=== PATIENT | female | born 1945 | race Caucasian/White ===

== ENCOUNTER → 2018-04-10 14:23 | Outpatient (CLI) | payer MEDICARE, SELFPAY ==
--- NOTE | 2018-04-10 14:24 | DI.RAD.S_ITS ---
PROCEDURE: XR CHEST 2V INDICATIONS: cough TECHNIQUE: 2 views of the chest were acquired. COMPARISON: [facility], CHEST 2 VIEW, 02/18/2012, 15:49. [facility], CHEST 2 VIEW, 11/01/2010, 11:49. [facility], CHEST 1 VIEW, 10/28/2016, 13:07. [facility], CHEST 1 VIEW, 07/26/2016, 12:54. [facility], CHEST 1 VIEW, 07/13/2017, 1:42. FINDINGS: Surgical changes and devices: 2 electronic devices are present, one on each side. Lungs and pleura: There is a small right pleural effusion with right basilar consolidation or atelectasis. No pneumothorax. Mediastinum: Mediastinal contours are normal. Heart size is normal. Bones and chest wall: No suspicious bony abnormalities. Soft tissues appear unremarkable. IMPRESSION: 1. Small right pleural effusion and right basilar consolidation or atelectasis, not significantly changes from the last exam dated 07/13/2017. Dictated by: Chelsea Brice M.D. on 04/10/2018 at 15:20 Approved by: Chelsea Brice M.D. on 04/10/2018 at 15:24
== END ==
PROVIDERS: PCP Internal Medicine; Visit Provider Physician Assistant
DX: J90 Pleural effusion, not elsewhere classified (principal); R05 Cough
CPT/HCPCS: 71046

== ENCOUNTER 2018-04-11 19:30 | Emergency (ER) | payer MEDICARE, SELFPAY ==
--- NOTE | 2018-04-11 19:40 | ED.ALLEREA ---
HPI - Allergic Reaction General Chief complaint: Allergic Reaction Stated complaint: ALLERGIC REACTION Time Seen by Provider: 04/11/18 19:38 Source: patient and family () Mode of arrival: wheelchair Limitations: other (Parkinson's disease) History of Present Illness HPI narrative: This is a 73-year-old female who is brought in by for concern for allergic reaction. Patient was just started on Levaquin yesterday, she had her 2nd dose today. She has been treated for pneumonia. She has known Parkinson's disease. She has not had any fevers today, she has had some cough but no difficulty breathing. She is not having any chest pain. No nausea or vomiting, no diarrhea. Maybe some mild constipation per . The patient has new rash that he noted on the underside of her breast and abdomen. I states he did noticing yesterday. He does majority of area being and so does look at her skin regularly. She has known allergy to penicillin but none to the Levaquin. Patient has been complaining of it is itchy and he noticed it because she was scratching the area. Related Data Home Medications Medication Instructions Recorded Confirmed donepezil [Aricept] 10 mg PO QDAY #0 05/05/12 04/10/18 aspirin 81 mg tablet,delayed 81 mg PO DAILY 01/14/18 04/10/18 release metoprolol succinate ER 25 mg 25 mg PO DAILY 01/14/18 04/10/18 tablet,extended release 24 hr trihexyphenidyl 2 mg tablet 2 mg PO DAILY tab 01/14/18 04/10/18 Previous Rx's Medication Instructions Recorded albuterol sulfate [Ventolin HFA] 1 - 2 puff INH Q4HP PRN #1 ea 07/11/16 carbidopa-levodopa 2 tab PO 0900,1200,1500 #180 tab 07/29/16 fluticasone-salmeterol [Advair 1 puff INH BID #60 dose 09/15/17 Diskus] Disabled Parking #1 [id number] 01/08/18 oxycodone-acetaminophen 5 mg-325 1 tab PO Q4HP PRN #90 tab 03/02/18 mg tablet levofloxacin 750 mg tablet 750 mg PO DAILY 10 Days #10 tab 04/10/18 doxycycline hyclate 100 mg PO BID #20 cap 04/11/18 prednisone 20 mg PO BID 3 Days #6 tab 04/11/18 Allergies Allergy/AdvReac Type Severity Reaction Status Date / Time fentanyl Allergy Unknown Verified 04/11/18 19:43 hydromorphone Allergy Unknown Verified 04/11/18 19:43 Penicillins Allergy Unknown Verified 04/11/18 19:43 sodium chloride Allergy Unknown Verified 04/11/18 19:43 Review of Systems Review of Systems All systems reviewed & are unremarkable except as noted in HPI and below Constitutional Denies chills and Denies fever(s) ENT Ears, Nose, Mouth, and Throat: Denies dysphagia, Denies nasal congestion, Denies sore throat, Denies throat swelling and Denies tongue swelling Cardiovascular Denies chest pain and Denies dyspnea Respiratory Reports chest congestion, Reports cough, Reports excessive phlegm production and Denies dyspnea Gastrointestinal Gastrointestinal: Reports constipation (mild), Denies dysphagia, Denies diarrhea, Denies nausea and Denies vomiting Integumentary/Breasts Reports rash (itching) Neurologic Reports abnormal movements (Parkinson's disease, no new change) Allergic/Immunologic Denies throat swelling and Denies tongue swelling [facility] Medical History Dysphagia, neurologic (Chronic) Parkinson's disease (Chronic 01/18/11) Mild intermittent asthma without complication (Chronic 01/18/11) Osteoporosis (Chronic 01/18/11) Surgical History History of surgery (Resolved) Status post hysterectomy with oophorectomy Social History Smoking Status: Never smoker Exam Narrative Exam Narrative: GEN: well nourished, well appearing female, alert and oriented x 3, patient appears to be in mild distress. HEENT: Atraumatic, pupils are equal round reactive to light, extraocular movements are intact, nares are clear, TMs are clear with no fluid, there is no conjunctival pallor. Throat is clear without any exudates, erythema, tonsillar enlargement or uvular deviation, no facial swelling or swelling of oropharynx. HEART: Regular rate and rhythm without murmur, clicks, rubs. LUNGS:Lungs clear to auscultation, no wheezes, rales, crackles, chest moves symmetrically. ABD:bowel sounds normal, soft, non-tender, no guarding, rebound, rigidity, no masses noted, no hepatosplenomegaly MSCL: Non-tender, no muscle atrophy, patient has movement of upper extremities consistent with Parkinon's disease NEURO:CN 2-12 intact, sensation normal SKIN: erythema under bilateral breast, slight swelling in erythematous circles, no vesicles. Patient also has some hyperpigmentation adjacent on abdomen. Initial Vital Signs Initial Vital Signs: Vital Signs Temperature 97.4 F L 04/11/18 19:43 Pulse Rate 82 04/11/18 19:43 Respiratory Rate 20 04/11/18 19:43 Blood Pressure 115/64 04/11/18 19:43 Pulse Oximetry 95 04/11/18 19:43 Course Orders Ordered: ED Orders 04/11/18 19:45 Basic Metabolic Panel Stat Complete Blood Count AUTO DIFF Stat Lactate (Lactic Acid) Stat Discontinued Medications Diphenhydramine HCl (Benadryl) 50 mg IV NOW ONE Stop: 04/11/18 19:39 Last Admin: 04/11/18 19:56 Dose: 50 mg Doxycycline Hyclate (Vibramycin) 100 mg PO NOW ONE Stop: 04/11/18 20:45 Last Admin: 04/11/18 21:00 Dose: 100 mg Sodium Chloride (Normal Saline 0.9%) 1,000 mls @ 1,000 mls/hr IV BOLUS ONE Stop: 04/11/18 20:37 Last Infusion: 04/11/18 21:15 Dose: 0 mls/hr Admin: 04/11/18 19:56 Dose: 1,000 mls/hr Methylprednisolone (Solu-Medrol 125 Mg Vial) 125 mg IV NOW ONE Stop: 04/11/18 19:39 Last Admin: 04/11/18 19:56 Dose: 125 mg Vital Signs - 8 hr 04/11/18 19:43 04/11/18 21:00 04/11/18 21:15 Temperature 97.4 F L Pulse Rate 82 79 65 Respiratory Rate 20 Blood Pressure 115/64 107/63 Blood Pressure [Left Arm] 120/58 L Pulse Oximetry 95 95 95 MDM - Allergic Reaction Lab Data Attestation: I reviewed the patient's lab results. Result diagrams: 04/11/18 19:45 04/11/18 19:45 Lab Results 04/11/18 04/11/18 04/11/18 Range/Units 19:45 19:45 19:45 WBC 7.5 (4.5-11.0) X10^3/uL RBC 3.92 L (4.0-5.2) X10^6/uL Hgb 12.2 (12.0-16.0) g/dL Hct 36.0 (36-46) % MCV 91.8 (80-100) fL MCH 31.1 (26-34) PG MCHC 33.8 (30-36) % RDW 12.9 (11.6-14.8) % Plt Count 212 (150-400) X10^3/uL Neut % (Auto) 57.6 (50-75) % Lymph % (Auto) 30.8 (25-40) % [place] % (Auto) 7.5 (3-14) % Eos % (Auto) 3.0 (2-4) % Baso % (Auto) 1.1 (0-2) % Neut # (Auto) 4300 (6757-9655) /uL Sodium 142 (137-145) mmol/L Potassium 4.4 (3.4-5.1) mmol/L Chloride 104 (98-107) mmol/L Carbon Dioxide 27 (22-32) mmol/L BUN 17 (7-17) mg/dL Creatinine 0.70 (0.52-1.04) mg/dL Estimated GFR > 60.0 (>60) mL/min BUN/Creatinine Ratio 24.3 H (6-22) Glucose 106 (80-110) mg/dL Lactate 1.7 (0.7-2.1) mmol/L Calcium 8.8 (8.4-10.2) mg/dL Imaging Data Chest x-ray: Radiologist's impression: [address] [address] XRay Report Signed Patient: Elise Villalta [facility]#: [id number] : 6Acct:[id number] Age/Sex: 73 / FDate of Service: 04/10/18 Loc: RAD Accession Number: [id number] Procedure: XR chest 2V Ordering Provider: Nadiya Lozano P.A-C PROCEDURE: XR CHEST 2V INDICATIONS: cough TECHNIQUE: 2 views of the chest were acquired. COMPARISON: [facility], CHEST 2 VIEW, 02/18/2012, 15:49. [facility], CHEST 2 VIEW, 11/01/2010, 11:49. [facility], CHEST 1 VIEW, 10/28/2016, 13:07. [facility], CHEST 1 VIEW, 07/26/2016, 12:54. [facility], CHEST 1 VIEW, 07/13/2017, 1:42. FINDINGS: Surgical changes and devices: 2 electronic devices are present, one on each side. Lungs and pleura: There is a small right pleural effusion with right basilar consolidation or atelectasis. No pneumothorax. Mediastinum: Mediastinal contours are normal. Heart size is normal. Bones and chest wall: No suspicious bony abnormalities. Soft tissues appear unremarkable. IMPRESSION: 1. Small right pleural effusion and right basilar consolidation or atelectasis, not significantly changes from the last exam dated 07/13/2017. Dictated by: Chelsea Brice M.D. on 04/10/2018 at 15:20 Approved by: Chelsea Brice M.D. on 04/10/2018 at 15:24 MDM Narrative Medical decision making narrative: Initially suspected fungal infection but patient rash just started and he patient had also started levaquin at same time. Treated with steroid and benadryl. Rash 99% resolved in department so may be reaction to medication. Will change abx, plan for prednisone x 3 days, benadryl po prn and follow up with Dr. Mcmanus. We did discuss this is a rather unusual presentation for a allergic reaction so patient continues to have symptoms may actually be more likely a fungal infection. Discharge Plan Departure Patient Disposition: Home Clinical Impression: Allergic reaction Discharge Date/Time: 04/11/18 21:16 Interventions: ED Discharge Assessment Last Done: 04/11/18 21:15 Instructions: DI for Adverse Drug Reaction -- Allergic Activity Restrictions/Additional Instructions: Follow up with Dr. Mcmanus at your scheduled appointment. Discuss with Dr. Mcmanus Stop Levaquin. Start Doxycycline in the morning. Take prednisone until gone. You may take benadryl 1-2 tablets every 6-8 hours for itching/symptoms. Return to ER for facial swelling, lip swelling, throat tightness, difficulty breathing, passing out, persistent vomiting, or other new or concerning symptoms. Prescriptions: New doxycycline hyclate 100 mg capsule 100 mg PO BID Qty: 20 RF: 0 prednisone 20 mg tablet 20 mg PO BID 3 Days Qty: 6 RF: 0 No Action levofloxacin [Levaquin] 750 mg tablet 750 mg PO DAILY 10 Days Qty: 10 RF: 0 metoprolol succinate 25 mg tablet extended release 24 hr 25 mg PO DAILY RF: 0 aspirin [Adult Aspirin Regimen] 81 mg tablet,delayed release (DR/EC) 81 mg PO DAILY RF: 0 trihexyphenidyl 2 mg tablet 2 mg PO DAILY RF: 0 donepezil [Aricept] 10 MG tablet 10 mg PO QDAY Qty: 0 RF: 0 albuterol sulfate [Ventolin HFA] 90 MCG/PUFF HFA aerosol inhaler 1 - 2 puff INH Q4HP PRNQty: 1 RF: 11 carbidopa-levodopa 10 MG/100 MG tablet 2 tab PO 0900,1200,1500 Qty: 180 RF: 11 fluticasone-salmeterol [Advair Diskus] 250 MCG/50 MCG blister with device 1 puff INH BID Qty: 60 RF: 3 Disabled Parking Qty: 1 RF: 0 oxycodone-acetaminophen [Percocet] 5-325 mg tablet 1 tab PO Q4HP PRN (Reason: pain) Qty: 90 RF: 0 Referrals: Hudson Mcmanus MD [Primary Care Provider] -
[2018-04-11 19:43] VITALS: BP 115/64; PULSE 82; RESP 20; TEMP 36.3; O2SAT 95
[2018-04-11 19:56] LABS: Add Manual Diff / Slide Review NO; Basophils Percent Auto 1.1 % (0-2); Hemoglobin 12.2 g/dL (12.0-16.0); Lymphocytes Percent Auto 30.8 % (25-40); Mean Corpuscular HGB Conc 33.8 % (30-36); Mean Corpuscular Hemoglobin 31.1 PG (26-34); Mean Corpuscular Volume 91.8 fL (80-100); Monocytes Percent Auto 7.5 % (3-14); Neutrophils Absolute Auto 4300 /uL (3000-5900); Neutrophils Percent Auto 57.6 % (50-75); Platelet Count 212 X10^3/uL (150-400); Red Blood Cell Count 3.92 X10^6/uL (4.0-5.2); Red Cell Distribution Width 12.9 % (11.6-14.8); White Blood Cell Count 7.5 X10^3/uL (4.5-11.0)
[2018-04-11] MEDS: diphenhydrAMINE 50 MG/ML VIAL IV (19:56)
[2018-04-11] MEDS: SODIUM CHLORIDE 0.9% 1,000 ML 1000 ML IV (19:56)
[2018-04-11] MEDS: methylPREDNISolone 125 MG/2 ML VIAL IV (19:56)
[2018-04-11 20:06] LABS: Lactate (Lactic Acid) 1.7 mmol/L (0.7-2.1)
[2018-04-11 20:07] LABS: BUN Creatinine Ratio 24.3 (6-22); Blood Urea Nitrogen 17 mg/dL (7-17); Calcium 8.8 mg/dL (8.4-10.2); Carbon Dioxide 27 mmol/L (22-32); Chloride 104 mmol/L (98-107); Estimated Glomerular Filt Rate > 60.0 mL/min (>60); Glucose 106 mg/dL (80-110); HEMOLYSIS 31 (0-50); Potassium 4.4 mmol/L (3.4-5.1); Sodium 142 mmol/L (137-145)
[2018-04-11 21:00] VITALS: BP 120/58; PULSE 79; O2SAT 95
[2018-04-11] MEDS: DOXYCYCLINE HYCLATE 100 MG TABLET PO (21:00)
[2018-04-11 21:15] VITALS: BP 107/63; PULSE 65; O2SAT 95
== END 2018-04-11 21:16 | disposition home or self-care (01) ==
PROVIDERS: Emergency Provider Emergency Medicine; Family Provider Internal Medicine; PCP Internal Medicine
DX: T78.40XA Allergy, unspecified, initial encounter (principal)
CPT/HCPCS: 36591; 80048; 83605; 85025; 96361; 96374; 96375; 99283; 99284; J1200; J2930

== ENCOUNTER 2018-05-03 19:46 | Emergency (ER) | payer MEDICARE, SELFPAY ==
[2018-05-03] VITALS (7 sets, daily range): BP systolic 121–164; BP diastolic 55–70; PULSE 73–100; RESP 16–26; TEMP 37.1–38.6; O2SAT 88–97; BMI 21.9
--- NOTE | 2018-05-03 20:11 | DI.RAD.S_ITS ---
PROCEDURE: XR CHEST 1V INDICATIONS: suspected aspiration TECHNIQUE: One view of the chest was acquired. COMPARISON: [facility], CR, XR CHEST 2V, 04/10/2018, 14:27. FINDINGS: Surgical changes and devices: Bilateral neurostimulator devices are demonstrated projecting over the hemithoraces. Lungs and pleura: There is a small right pleural effusion with increased right basilar opacities consistent with consolidation, aspiration, or atelectasis. Mediastinum: Mediastinal contours appear unchanged. Heart size is enlarged. Bones and chest wall: No suspicious bony lesions. Overlying soft tissues appear unremarkable. IMPRESSION: 1. Small right pleural effusion with increased right basilar opacities consistent with consolidation, aspiration, or atelectasis. Dictated by: Tomás Babin M.D. on 05/03/2018 at 20:52 Approved by: Tomás Babin M.D. on 05/03/2018 at 20:54
[2018-05-03] MEDS: SODIUM CHLORIDE 0.9% 1,905.09 ML 635.03 ML IV (20:44)
--- NOTE | 2018-05-03 20:44 | ED.SOB ---
HPI - SOB/Dyspnea General Chief Complaint: Shortness of Breath/Dyspnea Stated Complaint: pneumonia Time Seen by Provider: 05/03/18 20:18 Source: patient and family Mode of arrival: ambulatory Limitations: physical limitation ( Parkinson's disease prevents the patient from speaking freely. provides most of the history.) History of Present Illness Patient has a history of Parkinson's disease and was treated about 1 month ago for pneumonia. Patient's states that she has had some gurgling with her breathing since then, and he just thought that it was the aftermath of her pneumonia. However, the patient seems to been getting worse over the last few days, and today, was found to be running a fever. Patient has had a cough for the last few days, but the cough disappeared today. Patient's states he is concerned about this. Patient has not had any other symptoms of infection, such as vomiting or dysuria. She has not had a sore throat. No sick contacts. Patient was not hospitalized in her last bout of pneumonia. Related Data Home Medications Medication Instructions Recorded Confirmed donepezil [Aricept] 10 mg PO QDAY #0 05/05/12 04/21/18 aspirin 81 mg tablet,delayed 81 mg PO DAILY 01/14/18 04/21/18 release metoprolol succinate ER 25 mg 25 mg PO DAILY 01/14/18 04/21/18 tablet,extended release 24 hr trihexyphenidyl 2 mg tablet 2 mg PO DAILY tab 01/14/18 04/21/18 Previous Rx's Medication Instructions Recorded albuterol sulfate [Ventolin HFA] 1 - 2 puff INH Q4HP PRN #1 ea 07/11/16 carbidopa-levodopa 2 tab PO 0900,1200,1500 #180 tab 07/29/16 fluticasone-salmeterol [Advair 1 puff INH BID #60 dose 09/15/17 Diskus] Disabled Parking #1 [id number] 01/08/18 oxycodone-acetaminophen 5 mg-325 1 tab PO Q4HP PRN #90 tab 03/02/18 mg tablet doxycycline hyclate 100 mg PO BID #20 cap 04/11/18 azithromycin [Zithromax Z-Matheus] See Label Instructions .ROUTE 05/04/18 .COMPLEX #6 tab Allergies Allergy/AdvReac Type Severity Reaction Status Date / Time levofloxacin Allergy Severe Hives, Verified 04/21/18 11:11 Water Blisters, Small Fever fentanyl Allergy Unknown Verified 04/21/18 11:11 hydromorphone Allergy Unknown Verified 04/21/18 11:11 Penicillins Allergy Unknown Verified 04/21/18 11:11 sodium chloride Allergy Unknown Verified 04/21/18 11:11 Review of Systems Review of Systems All systems reviewed & are unremarkable except as noted in HPI and below Constitutional Denies chills, Denies fever(s), Denies lethargy and Denies weakness Eyes Denies change in vision, Denies eye discharge, Denies irritation and Denies loss of vision ENT Ears, Nose, Mouth, and Throat: Denies change in voice, Denies neck pain and Denies sore throat Cardiovascular Denies chest pain, Denies irregular heart rhythm, Denies lightheadedness, Denies palpitations, Denies dyspnea, Denies dyspnea on exertion and Denies orthopnea Respiratory Denies cough, Denies dyspnea, Denies dyspnea on exertion and Denies wheezing Gastrointestinal Gastrointestinal: Denies abdominal pain, Denies change in bowel habits, Denies diarrhea, Denies nausea and Denies vomiting Genitourinary Denies hematuria, Denies flank pain, Denies urinary incontinence and Denies urinary urgency Musculoskeletal Denies neck pain Integumentary/Breasts Denies pruritus, Denies erythema, Denies rash and Denies wounds Neurologic Denies confusion, Denies loss of vision and Denies weakness Psychiatric Denies anxiety, Denies confusion, Denies depression, Denies homicidal ideation and Denies suicidal ideation Endocrine Denies palpitations Hematologic/Lymphatic Denies easy bruising Allergic/Immunologic Denies wheezing [facility] Medical History Dysphagia, neurologic (Chronic) Parkinson's disease (Chronic 01/18/11) Mild intermittent asthma without complication (Chronic 01/18/11) Osteoporosis (Chronic 01/18/11) Surgical History History of surgery (Resolved) Status post hysterectomy with oophorectomy Social History Smoking Status: Never smoker Exam Initial Vital Signs Initial Vital Signs: Vital Signs Temperature 101.5 F H 05/03/18 19:58 Pulse Rate 100 H 05/03/18 19:58 Respiratory Rate 26 H 05/03/18 19:58 Blood Pressure 121/70 05/03/18 19:58 Pulse Oximetry 88 L 05/03/18 19:58 Const General: cooperative and well developed Nutritional Appearance: well nourished Orientation: alert, awake, oriented x3 and not confused [facility] Head: normocephalic and atraumatic Ears: external ears normal Nose: external nose normal and No nasal discharge Face and sinus: face symmetric and No dry mucous membranes Mouth: oral mucosae normal and moist mucous membranes Teeth and gingiva: dentition normal Eyes General: appearance normal, both eyes and all related structures Eyelids: eyelids normal Conjunctivae: conjunctivae normal Sclera: sclerae normal Pupils: PERRL EOM: EOM intact bilaterally Neck Neck: normal visual inspection, trachea midline, No lymphadenopathy, No midline deformity and No JVD Lymphatic: No lymphedema Chest Chest: normal inspection of the chest Resp Effort & Inspection: normal respiratory effort, able to speak in complete sentences, no respiratory distress and no use of accessory muscles Auscultation: clear to auscultation bilaterally, no rales, no rhonchi and no wheezes Cardio Rate: regular rate Rhythm: regular rhythm Heart Sounds: no click, no gallops, no murmurs and no rubs Pulses: normal peripheral pulses GI Inspection: non-distended Palpation: soft, no hepatosplenomegaly, No guarding, No pulsatile mass and No tender Back/Spine/Pelvis Back: No CVA tenderness Cervical Spine: cervical ROM normal and No pain with cervical ROM Thoracic/Lumbar Spine: thoracic and lumbar spine normal to inspection Skin General: no rashes or lesions noted, No jaundice and No petechiae Neuro General: alert Other: Patient has minimal facial movement, and is not able to articulate clearly, secondary to decreased movement of her oral, facial, and lingual muscles. Patient has decreased strength throughout her entire body, and requires help sitting up. She does not move her extremities much. Extrem General: full ROM, no clubbing, cyanosis or edema, no pedal edema and no calf tenderness Psych Appearance: well kempt Mental Status: mental status grossly normal Attitude: cooperative Thought Content: normal and suicidality Judgment: judgment good Course Course Narrative: Patient was worked up with chest x-ray, which showed a right pleural effusion with potentially some consolidation. Remainder of workup was entirely negative for a source of fever. Patient's lactic acid level was normal, as was procalcitonin. Given the patient's history of frequent pneumonia, her x-ray findings, and her fever, I felt she should be treated with antibiotics presumptively for pneumonia. She was given IV Rocephin as well as IV Zithromax. Patient was found to be feeling much, much better, and I did come and talk to her and her about disposition. Patient and both felt comfortable with the idea of going home, and were desirous of this. We have discussed the usual indications for return. Patient has already been worked up by speech pathologist and had swallow studies, but has been advised by her primary care physician that she may need to go back and be re-evaluated, due to the repeated bouts of pneumonia and suspected aspiration. states he will follow up on this with the patient's primary care physician. Orders Ordered: ED Orders 05/03/18 20:11 XR chest 1V Stat 05/03/18 20:20 Complete Blood Count AUTO DIFF Stat Comprehensive Metabolic Panel Stat Lactate (Lactic Acid) Stat Lipase Stat Partial Thromboplastin Time Stat Procalcitonin Stat Prothrombin Time INR Stat 05/03/18 20:52 Blood Culture Stat 05/03/18 20:55 Influenza A and B by PCR Rapid Stat Discontinued Medications Sodium Chloride (Normal Saline 0.9%) 1,905.09 mls @ 635.03 mls/hr 30 ml/kg infuse over 3 hr (1905.09 ml) IV NOW ONE Stop: 05/03/18 23:36 Last Infusion: 05/04/18 00:57 Dose: 0 mls/hr Admin: 05/03/18 20:44 Dose: 635.03 mls/hr Azithromycin 500 mg/ Dextrose 250 mls @ 250 mls/hr IV NOW ONE Stop: 05/03/18 22:01 Last Infusion: 05/04/18 00:11 Dose: 0 mls/hr Admin: 05/03/18 23:08 Dose: 250 mls/hr Ceftriaxone Sodium 2,000 mg/ (Dextrose) 50 mls @ 100 mls/hr IV NOW ONE Stop: 05/03/18 22:01 Last Infusion: 05/03/18 23:07 Dose: 0 mls/hr Admin: 05/03/18 22:28 Dose: 100 mls/hr Vital Signs - 8 hr 05/03/18 19:58 05/03/18 20:34 05/03/18 21:30 Temperature 101.5 F H Pulse Rate 100 H 89 77 Respiratory Rate 26 H 18 17 Blood Pressure 121/70 Blood Pressure [Right Arm] 164/67 H 163/67 H Pulse Oximetry 88 L 93 97 05/03/18 21:53 05/03/18 22:00 05/03/18 23:00 Temperature 99.3 F Pulse Rate 78 73 Respiratory Rate 16 17 Blood Pressure Blood Pressure [Right Arm] 148/60 H 143/55 H Pulse Oximetry 96 96 05/03/18 23:12 05/04/18 00:58 Temperature 98.7 F 98.6 F Pulse Rate 75 Respiratory Rate 17 Blood Pressure 142/61 H Blood Pressure [Right Arm] Pulse Oximetry 95 MDM - SOB/Dyspnea Medical Records Attestation: I reviewed the patient's medical records. Lab Data Attestation: I reviewed the patient's lab results. Result diagrams: 05/03/18 20:20 05/03/18 20:20 Lab Results 05/03/18 05/03/18 05/03/18 Range/Units 20:20 20:20 20:20 WBC 7.7 (4.5-11.0) X10^3/uL RBC 4.12 (4.0-5.2) X10^6/uL Hgb 12.7 (12.0-16.0) g/dL Hct 37.5 (36-46) % MCV 91.0 (80-100) fL MCH 30.7 (26-34) PG MCHC 33.7 (30-36) % RDW 13.5 (11.6-14.8) % Plt Count 189 (150-400) X10^3/uL Neut % (Auto) 75.8 H (50-75) % Lymph % (Auto) 15.4 L (25-40) % Pine % (Auto) 5.9 (3-14) % Eos % (Auto) 2.4 (2-4) % Baso % (Auto) 0.5 (0-2) % Neut # (Auto) 5800 (1466-9530) /uL PT 11.6 (10.1-12.7) SECONDS INR 1.0 (0.9-1.3) APTT 31 (26.4-36.2) SECONDS Sodium (137-145) mmol/L Potassium (3.4-5.1) mmol/L Chloride (98-107) mmol/L Carbon Dioxide (22-32) mmol/L BUN (7-17) mg/dL Creatinine (0.52-1.04) mg/dL Estimated GFR (>60) mL/min BUN/Creatinine Ratio (6-22) Glucose (80-110) mg/dL Lactate (0.7-2.1) mmol/L Calcium (8.4-10.2) mg/dL Total Bilirubin (0.2-1.3) mg/dL AST (14-36) IU/L ALT (9-52) IU/L Alkaline Phosphatase (38-126) U/L Total Protein (6.3-8.2) g/dL Albumin (3.5-5.0) g/dL Globulin (1.7-4.1) g/dL Albumin/Globulin Ratio (1.0-2.8) Lipase (23-300) U/L Procalcitonin < 0.05 (<0.5) ng/mL Influenza A & B (PCR) (Negative) 05/03/18 05/03/18 05/03/18 Range/Units 20:20 20:20 20:55 WBC (4.5-11.0) X10^3/uL RBC (4.0-5.2) X10^6/uL Hgb (12.0-16.0) g/dL Hct (36-46) % MCV (80-100) fL MCH (26-34) PG MCHC (30-36) % RDW (11.6-14.8) % Plt Count (150-400) X10^3/uL Neut % (Auto) (50-75) % Lymph % (Auto) (25-40) % Pine % (Auto) (3-14) % Eos % (Auto) (2-4) % Baso % (Auto) (0-2) % Neut # (Auto) (6724-4243) /uL PT (10.1-12.7) SECONDS INR (0.9-1.3) APTT (26.4-36.2) SECONDS Sodium 138 (137-145) mmol/L Potassium 4.4 (3.4-5.1) mmol/L Chloride 104 (98-107) mmol/L Carbon Dioxide 23 (22-32) mmol/L BUN 17 (7-17) mg/dL Creatinine 0.70 (0.52-1.04) mg/dL Estimated GFR > 60.0 (>60) mL/min BUN/Creatinine Ratio 24.3 H (6-22) Glucose 110 (80-110) mg/dL Lactate 0.8 (0.7-2.1) mmol/L Calcium 9.1 (8.4-10.2) mg/dL Total Bilirubin 0.4 (0.2-1.3) mg/dL AST 59 H (14-36) IU/L ALT 15 (9-52) IU/L Alkaline Phosphatase 77 (38-126) U/L Total Protein 7.4 (6.3-8.2) g/dL Albumin 4.3 (3.5-5.0) g/dL Globulin 3.1 (1.7-4.1) g/dL Albumin/Globulin Ratio 1.4 (1.0-2.8) Lipase 116 (23-300) U/L Procalcitonin (<0.5) ng/mL Influenza A & B (PCR) Negative (Negative) Urine Dip Bedside Urine Glucose Negative Bedside Urine Bilirubin - Negative Bedside Urine Ketone +/- 5 Urine Specific [place] 1.015 Bedside Urine Occult Blood +/- Bedside Urine pH 7.5 Bedside Urine Protein - Negative Bedside Urine Urobilinogen - Negative Bedside Urine Nitrite - Negative Bedside Urine Leukocytes - Negative Esterase Imaging Data Chest x-ray: Attestation: I personally reviewed and interpreted this imaging study as follows: Radiologist's impression: PROCEDURE: XR CHEST 1V INDICATIONS: suspected aspiration TECHNIQUE: One view of the chest was acquired. COMPARISON: [facility], , XR CHEST 2V, 04/10/2018, 14:27. FINDINGS: Surgical changes and devices: Bilateral neurostimulator devices are demonstrated projecting over the hemithoraces. Lungs and pleura: There is a small right pleural effusion with increased right basilar opacities consistent with consolidation, aspiration, or atelectasis. Mediastinum: Mediastinal contours appear unchanged. Heart size is enlarged. Bones and chest wall: No suspicious bony lesions. Overlying soft tissues appear unremarkable. IMPRESSION: 1. Small right pleural effusion with increased right basilar opacities consistent with consolidation, aspiration, or atelectasis. Dictated by: Tomás Babin M.D. on 05/03/2018 at 20:52 Approved by: Tomás Babin M.D. on 05/03/2018 at 20:54 Discharge Plan Departure Patient Disposition: Home Clinical Impression: Community acquired pneumonia Discharge Date/Time: 05/04/18 00:59 Interventions: ED Discharge Assessment Last Done: 05/04/18 00:58 Instructions: DI for Pneumonia -- Adult Activity Restrictions/Additional Instructions: Your labs look good. Your chest x-ray shows a small fluid collection in the bottom of your right lung, which may be infected. You have been restarted on antibiotics for this. It is important that you follow up with your doctor to discuss potentially having a swallow study, and to also discuss ways to prevent aspirating stomach contents and alexander pneumonia in the future. Prescriptions: New azithromycin [Zithromax Z-Matheus] 250 mg tablet See Label Instructions .ROUTE .COMPLEX Qty: 6 RF: 0 No Action metoprolol succinate 25 mg tablet extended release 24 hr 25 mg PO DAILY RF: 0 aspirin [Adult Aspirin Regimen] 81 mg tablet,delayed release (DR/EC) 81 mg PO DAILY RF: 0 trihexyphenidyl 2 mg tablet 2 mg PO DAILY RF: 0 donepezil [Aricept] 10 MG tablet 10 mg PO QDAY Qty: 0 RF: 0 albuterol sulfate [Ventolin HFA] 90 MCG/PUFF HFA aerosol inhaler 1 - 2 puff INH Q4HP PRNQty: 1 RF: 11 carbidopa-levodopa 10 MG/100 MG tablet 2 tab PO 0900,1200,1500 Qty: 180 RF: 11 fluticasone-salmeterol [Advair Diskus] 250 MCG/50 MCG blister with device 1 puff INH BID Qty: 60 RF: 3 Disabled Parking Qty: 1 RF: 0 oxycodone-acetaminophen [Percocet] 5-325 mg tablet 1 tab PO Q4HP PRN (Reason: pain) Qty: 90 RF: 0 doxycycline hyclate 100 mg capsule 100 mg PO BID Qty: 20 RF: 0
[2018-05-03 20:46] LABS: Add Manual Diff / Slide Review NO; Basophils Percent Auto 0.5 % (0-2); Eosinophils Percent Auto 2.4 % (2-4); Hematocrit 37.5 % (36-46); Hemoglobin 12.7 g/dL (12.0-16.0); Lymphocytes Percent Auto 15.4 % (25-40); Mean Corpuscular HGB Conc 33.7 % (30-36); Mean Corpuscular Hemoglobin 30.7 PG (26-34); Monocytes Percent Auto 5.9 % (3-14); Neutrophils Absolute Auto 5800 /uL (3000-5900); Neutrophils Percent Auto 75.8 % (50-75); Platelet Count 189 X10^3/uL (150-400); Red Blood Cell Count 4.12 X10^6/uL (4.0-5.2); Red Cell Distribution Width 13.5 % (11.6-14.8); White Blood Cell Count 7.7 X10^3/uL (4.5-11.0)
[2018-05-03 20:49] LABS: Prothrombin Time 11.6 SECONDS (10.1-12.7)
[2018-05-03 20:52] LABS: PTT Partial Thromboplastin Tim 31 SECONDS (26.4-36.2)
[2018-05-03 20:53] LABS: Lactate (Lactic Acid) 0.8 mmol/L (0.7-2.1)
[2018-05-03 21:11] LABS: Alanine Aminotransferase 15 IU/L (9-52); Albumin 4.3 g/dL (3.5-5.0); Albumin Globulin Ratio 1.4 (1.0-2.8); Alkaline Phosphatase 77 U/L (38-126); Aspartate Aminotransferase 59 IU/L (14-36); BUN Creatinine Ratio 24.3 (6-22); Bilirubin Total 0.4 mg/dL (0.2-1.3); Blood Urea Nitrogen 17 mg/dL (7-17); Calcium 9.1 mg/dL (8.4-10.2); Carbon Dioxide 23 mmol/L (22-32); Chloride 104 mmol/L (98-107); Estimated Glomerular Filt Rate > 60.0 mL/min (>60); Globulin 3.1 g/dL (1.7-4.1); Glucose 110 mg/dL (80-110); HEMOLYSIS 19 (0-50); Lipase 116 U/L (23-300); Potassium 4.4 mmol/L (3.4-5.1); Sodium 138 mmol/L (137-145); Total Protein 7.4 g/dL (6.3-8.2)
[2018-05-03 21:26] LABS: Procalcitonin < 0.05 ng/mL (<0.5)
[2018-05-03 21:28] LABS: Influenza A and B by PCR Rapid Negative (Negative)
[2018-05-03] MEDS: cefTRIAXone 2,000 MG in DEXTROSE 5 % IN WATER 50 ML 100 ML IV (22:28)
[2018-05-03] MEDS: AZITHROMYCIN 500 MG in DEXTROSE 5% IN WATER 250 ML IV (23:08)
[2018-05-04 00:58] VITALS: BP 142/61; PULSE 75; RESP 17; TEMP 37; O2SAT 95
== END 2018-05-04 00:59 | disposition home or self-care (01) ==
PROVIDERS: Emergency Provider Emergency Medicine; PCP Internal Medicine
DX: J18.9 Pneumonia, unspecified organism (principal)
CPT/HCPCS: 36591; 71045; 80053; 81003; 83605; 83690; 84145; 85025; 85610; 85730; 87040; 87400; 96361; 96365; 96367; 99284; 99285; J0696

== ENCOUNTER → 2019-06-11 13:12 | Outpatient (CLI) | payer MEDICARE, SELFPAY ==
--- NOTE | 2019-06-11 | DI.RAD.S_ITS ---
PROCEDURE: FL BARIUM SWALLOW W SPEECH INDICATIONS: Dysphagia, oropharyngeal phase TECHNIQUE: Examination was conducted in conjunction with speech pathology per standard protocol. In the lateral projection, filming was performed of the patient swallowing. AP projection filming may also be performed with patient swallowing. COMPARISON: [facility], , BARIUM SWALLOW WITH SPEECH, 07/26/2016, 15:02. FINDINGS: Function: The oral preparatory phase appears normal, with proper containment. The subsequent oral propulsive phase, pharyngeal phase, and esophageal phase of swallowing also appear normal with all proffered substances. There is laryngotracheal penetration without anthony laryngotracheal aspiration. There is vallecular and piriform sinus pooling which is only partially cleared with repeated swallows. Morphology: No cricopharyngeal bar is identified. No cervical esophageal webs. No Zenker's diverticulum. No strictures. IMPRESSION: 1. Laryngotracheal penetration without aspiration. 2. Vallecular and piriform sinus pooling. Pooled material is only partially cleared with repeated swallows. Dictated by: Eva Haynes MD, PhD on 06/11/2019 at 14:36 Approved by: Eva Haynes MD, PhD on 06/11/2019 at 14:38
--- NOTE | 2019-06-11 15:16 | ST.SWALLOW ---
Visit Care Team Role Provider Type Hudson Mcmanus MD Primary Care Provider Physician Specialty: Internal Medicine Address: [address] [place] [address], [address], [place], [address] Email: [email or web address] Marjorie Valdez MD Attending Provider Non-Staff Specialty: Medical Address: [address] [place] [address], [address] Email: Modified Barium Swallow Study FLATCAR WHACKER Modified Barium Swallow Study Start: 06/11/19 13:49 Freq: Status: Active Protocol: Document 06/11/19 13:49 TLC (Rec: 06/11/19 14:07 TLC [id number]) Modified Barium Swallow Study Total Time Visit Start Time 13:30 Visit Stop Time 13:50 Total Visit Minutes [address] Marjorie Valdez Reason for Referral Oropharyngeal Dysphagia Setting Setting Outpatient Care Patient Information Identification Type Name Patient History Elise has a history of oropharyngeal dysphagia and aspiration pneumonia secondary to Parkinson's disease. She is currently receiving outpatient speech therapy services with DAINA Charles at [facility]. Speech therapy sessions have focused on completing swallow exercises and education on diaphragmatic breathing and compensatory swallow strategies. A modified Barium Swallow Study was ordered for evaluation of swallow physiology and to guide plan of care. Elise previously had an MBS in 2017 which revealed moderate oropharyngeal dyspaghia characterized by reduced lingual seal allowing trace anterior spillage and significant pharyngeal residue worsening with larger bolus size, solid textures and fatigue. Subjective Observations Elise arrived on time accompanied by her who waited in the waiting room. She transferred from her wheelchair to the radiology chair with assistance from the independent trader. She was alert, oriented and cooperative. Patient Positioning Position View Lateral Imaging Lateral View Textures Administered Trials Presented Thin Liquid via Spoon,Thin Liquid via Cup,[place] Liquid via Spoon,Honey Liquid via Spoon,Dysphagia Blenderized Textures,Regular Textures Oral Phase Source: MBSIMP (TM) (C) Bolus Specific Scoring Grid Lip Closure Moderate Impairment Tongue Control During Bolus Hold No Impairment (WNL) Bolus Prep/Mastication No Impairment (WNL) Bolus Transport/Lingual Motion Moderate Impairment Oral Residue Mild Impairment Additional Oral Phase Observations Observed anterior loss of bolus during tsp presentation of thin liquids which escaped to mid-chin. No impairments in lip closure observed during any other trials. Elise was not wearing her upper partial, but mastication was within functional limits for 1/2 of a barium coated shortbread cookie. Bolus transport of pudding and cookie consistencies was repetitive/ disorganized. A collection of of residue was observed on the tongue which improved with second dry swallows. Initiation of pharyngeal swallow occurred at the level of the pyriforms. Pharyngeal Phase Source: MBSIMP (TM) (C) Bolus Specific Scoring Grid Soft Palate Elevation Mild Impairment Tongue Base Strength/Range of Motion Mild Impairment Laryngeal Elevation Mild Impairment Anterior Hyoid Movement Severe Impairment Epiglottic Range of Motion Moderate Impairment Vallecular Residue Yes Laryngeal Vestibular Closure Moderate Impairment Pharyngeal Stripping Wave Mild Impairment Upper Esophageal Sphincter Opening Mild Impairment Residue in the Pyriform Sinuses Yes Additional Pharyngeal Phase Observations Observed bolus escape to nasopharynx during consecutive cup sips. Laryngeal elevation was incomplete with only partial superior movement of the thyroid cartilage and partial approximation of the arytenoids to the epiglottic petiole. Laryngeal vestibular closure was incomplete at the height of the swallow. Flash penetration with trace aspiration (not viewed in real time, but later observed during slow motion viewing) of thin liquids occurred during self-administered cup sip. There was no sensory response to the aspirant consistent with a PAS scale score of 8. There was no appreciable anterior movement of the hyoid and only partial inversion of the epiglottis. Although pharyngoesophageal segment distension was complete and there was no obstruction of flow, duration of the PES opening was partial. Pharyngeal stripping wave and tongue base retraction were present but reduced/diminished . These impairments resulted in a collection of pharyngeal residue in the vallecula and pyriform sinuses with all consistencies which increased as bolus volume increased. In addition, more viscous consistencies were notably more difficult to clear from the vallecula and pyriform. Trials of effortful swallow used as a compensatory technique were successful in reducing pharyngeal residue, but did not prevent residue. Trial of chin tuck was not successful in improving epiglottic movement or decreasing residue. Esophageal Function No Impairment (WNL) Additional Observations Note: Limited observation in lateral positioning due to patient's limitations in mobility. Clinical Impressions Dysphagia Type Oropharyngeal Findings Moderate oral and pharyngeal dysphagia characterized by absence of anterior hyoid movement, reduced laryngeal elevation, epiglottic movement , tongue base retraction, PES opening and laryngeal vestibular closure allowing for flash penetration and one episode of trace aspiration with thin liquids with no response. No penetration or aspiration observed with any other trials; however, pharyngeal clearance and residue worsened with more viscous textures. Given patient's impairments, a combination of compensatory techniques and retraining exercises are recommended in order to maintain and prolong swallow function. Recommended compensatory strategies include: decreasing bolus volume and employing an effortful swallow as well as using additional dry swallows to decrease pharyngeal residue . The following exercises are recommended for oropharyngeal strengthening: effortful swallow, Joe maneuver, Shaker/CTAR, and effortful pitch glide. Positive indicators include patient's cognitive status, excellent family support and motivation. Rehabilitation Potential Fair Patient Appropriate for Therapy Yes: continue outpatient ST once weekly with implementation of HEP Recommendations Diet Liquids Order Thin Diet Order Mechanical Soft Medication Recommendation As Tolerated Additional Dietary Needs Reminders to Use Strategies Treatment Plan Therapy Recommendations Outpatient Speech Therapy, Compensatory Strategy Education Additional Therapy Recommendations Oropharyngeal strengthening exercises Placement Recommendation After Discharge Home
== END ==
PROVIDERS: PCP Internal Medicine; Visit Provider Psychiatry & Neurology Neurology
DX: R13.12 Dysphagia, oropharyngeal phase (principal)
CPT/HCPCS: 74230; 92611

== ENCOUNTER 2019-07-13 14:30 | Outpatient (RCR) | payer MEDICARE, SELFPAY ==
--- NOTE | 2019-05-13 13:05 | ST.OPIE ---
Visit Care Team Role Provider Type Hudson Mcmanus MD Primary Care Provider Physician Specialty: Internal Medicine Address: [address] [place] [address], [address], [place], [address] Email: [email or web address] Marjorie Valdez MD Attending Provider Non-Staff Specialty: Medical Address: [address] [place] [address], [place], [address] Email: Speech-Language Pathology Initial Evaluation SPINE NURSE Clinical Swallow Evaluation Start: 05/13/19 12:22 Freq: Status: Active Protocol: Document 05/12/19 12:22 GEOVANNI (Rec: 05/13/19 12:59 GEOVANNI [email or web address]) Clinical Swallow Evaluation Session Time Visit Start Time 15:30 Visit Stop Time 16:20 Total Visit Minutes 50 Visit Information Plan of Care Dates 05/12/19 - 08/04/19 Insurance Information Medicare Referral Referring Physician Dr. Marjorie Valdez, Neurologist Reason for Referral Dysphagia secondary to advanced Parkinson's disease Setting Assessment Location Outpatient Care Visit Type Note Type Initial Evaluation Next Note Type Next Note Type Treatment Note Patient Information Identification Type Name,ID Card History The pt is a 74-yr-old female with advanced Parkinson's disease first diagnosed in 1993. She has been treated with medication and with bilateral Deep Brain Stimulation (DBS) via 2 unilateral placements in 2007 and 2008, which has been helpful in minimizing dyskenesia. She has had recurrent pneumonia over the last 2-3 yrs and, per pt/ spouse report, aspiration PNA could not be ruled out. She had a Modified Barium Swallow Study (MBSS) during an [facility] stay in 07/2016, which revealed mild oral and moderate pharyngeal dysphagia without penetration or aspiration. She currently consumes a soft, moist diet cut into small pieces and thin liquids. She has particular difficulty swallowing dry, sticky foods and avoids foods such as rice and leafy greens. Her reports she frequently pockets food bilaterally in cheeks and requires frequent reminders to drink fluids with intake of solids. 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 Trujillo, jaw pain that appears to be nerve related but not specifically diagnosed (TMJ is ruled out), hx of cancer, falls, depression, vision problems, and multiple surgeries including hip and foot in addition to DBS placement. The pt has received inpatient and outpatient care at this hospital over a number of years targeting both voice/ communication skills and swallow safety. 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 She worked professionally with the [employer] team. Subjective Observations The pt arrived on time accompanied by her , who provided the majority of case history d/t the pt's difficulty in speaking and being heard. The pt is wheelchair bound. She was participatory and did answer questions directly but frequently defaulted to her to respond. She did exhibit a good sense of humor, making occasional jokes. Evaluation Liquids Trialed Thin Solids Trialed Puree,Dysphagia Mechanical, Regular Administration Type Cup Single Sip,Cup Consecutive Sips,Self-Feeding Oral Impairment Moderately Impaired Oral Strategies Upright at 90 degrees,Lingual Sweep,Controlled Bite/Sip Size Oral Phase Comments Oral Peripheral Exam: Mildly reduced lingual and labial strength, moderately reduced buccal strength and coordination. Lingual and labial coordination and ROM are WFL. Soft palate elevates upon phonation. Phonation and volitional cough are very weak even with significant effort, indicating severely reduced breath support for voice, speech and airway protection. The pt has a partial upper dental prosthetic; otherwise natural dentition in good condition with single lower molars missing bilaterally. The pt reports wearing her partial ~50% of the time with meals. States she is able to adequately masticate without it. She does primarily masticate on left side d/t jaw pain greater at left side of mandible. The pt was able to produce volitional swallow with mild-mod effort. Swallow was audible, indicating reduced coordination. Hyolaryngeal elevation/ excursion was present but mildly diminished. Oral Phase: Good anterior oral containment. Slowed mastication and bolus prep and formation. Occasional effort required for a/p propulsion. Suspect posterior spillage to pharynx prior to onset of swallow. No significant oral residue and no pocketing was observed. Pharyngeal Impairment Moderately Impaired Pharyngeal Strategies Sitting Upright (90 deg), Double Swallow,Small Bites and Sips Pharyngeal Phase Comments Significant cough was observed x1 before/during swallow of dysphagia mechanical texture, and also x1 ~3-4 minutes after oral intake. Suspect cough during swallow resulted from early spillage of bolus to pharynx prior to onset of swallow. The pt attempted to swallow upon initiation of coughing and continued to cough immediately after this attempt. Delayed cough indicates presence of pharyngeal residue. The pt consumed thin liquid in single and consecutive cup sips without coughing but did exhibit increased wetness of voice after all oral intake. Suspect overall weakness of pharyngeal and laryngeal musculature secondary to PD is responsible for these difficulties and place the pt at moderate to high risk of aspiration and choking. Findings Dysphagia Type Moderate Oropharyngeal Dysphagia Rehabilitation Potential Fair Impressions The pt is at moderate to high risk of aspiration and choking . Oropharyngeal dysphagia is secondary to advanced Parkinson's disease. Instrumental evaluation of swallow (MBSS) is necessary for further evaluation, to gauge disease progression, and to guide POC. The pt and her are in agreement with this recommendation. Request for orders will be sent to Dr. Valdez with this evaluation report. Diet Recommendations Liquids Order Thin Diet Order Dysphagia Mechanical Medication Recommendations As Tolerated Additional Dietary Needs Chopped Food,Controlled Sips, Reminders to Use Strategies Aspiration Precautions Recommended Precautions Upright at 90 Degrees, Alternate Liquids/Solids,Small Bites/Sips,Chin Tuck,Double Swallow,Check for Pocketing Treatment Plan Placement Recommendations after Home Discharge Appropriate for Therapy Yes Therapy Recommendations MBSS for further evaluation of swallow function/safety and to guide POC. Exercises to increase strength and coordination of swallow musculature and training of compensatory swallow strategies for increased ease and safety with oral intake. Dysphagia Goals 1. The pt will participate in further assessment of swallow function and safety to guide POC. 2. The pt will complete swallow exercises to increase ease and safety associated with oral intake. 3. The pt will use compensatory swallow strategies independently with oral intake to increase airway protection and minimize pharyngeal residue. 4. The pt will tolerate least restrictive diet to meet her nutrition and hydration needs. SPINE NURSE Follow Up Request orders for MBSS from referring
--- NOTE | 2019-05-25 16:44 | ST.IPDYTX ---
Visit Care Team Role Provider Type Hudson Mcmanus MD Primary Care Provider Physician Specialty: Internal Medicine Address: [address] [place] [address], [address], [place], [address] Email: [email or web address] Marjorie Valdez MD Attending Provider Non-Staff Specialty: Medical Address: [address] [place] [address], [address] Email: PROVIDER SERVICE REPRESENTATIVE Dysphagia Treatment PROVIDER SERVICE REPRESENTATIVE Dysphagia Treatment Start: 05/13/19 12:22 Freq: Status: Active Protocol: Document 05/25/19 16:24 GEOVANNI (Rec: 05/25/19 16:24 GEOVANNI [email or web address]) Dysphagia Treatment Session Time Visit Start Time 14:30 Visit Stop Time 15:15 Total Visit Minutes 45 Visit Information Visit Number 06/04 Plan of Care Dates 05/12/19 - 08/04/19 Insurance Information Medicare Setting Assessment Location Outpatient Care Visit Type Note Type Treatment Note Next Note Type Next Note Type Treatment Note Patient Information Subjective Observations The pt arrived on time with her , who was present throughout the tx. MBSS has been scheduled for Jun 11. No new complaints. Treatment Liquids Trialed Thin Administration Type Self-Feeding Oral Strategies Upright at 90 degrees,Double Swallow,Lingual Sweep Pharyngeal Strategies Sitting Upright (90 deg),Chin Tuck,Double Swallow Additional Dysphagia Treatment Medications (2 medium sized Strategies tablets) Treatment Activities Trained pt in diaphragmatic breathing for voice, speech and swallow, and in exercises including sustained phonation with clear voice, lip retraction/rounding (ee-oo with exaggerated movements), suck/hard swallow for buccal strength and hyolaryngeal elevation, lip smacks for labial strength and hyolaryngeal elevation, and lingual exercises including lingual sweeps around exterior upper/lower teeth (or interior if irritating to tongue) and base of tongue strengthening via pressing of tongue tip to alveolar ridge for 3-sec holds. The pt returned demonstration of all exercises, demonstrating understanding and ability to perform. She benefited from visual biofeedback via mirror to perform smile-pucker exercise with consistent ROM. She initially produced minimal voicing that was strained/ strangled in nature during sustained phonation, lasting up to 1/5 sec. After training of diaphragmatic breathing and brief education of subsystems of voice, she improved to producing clear voice and sustaining audible production for up to 3 sec. Instructions for all exercises were provided orally with demonstration and in writing. Both pt and spoused verbalized understanding. The pt consumed thin liquid in single and consecutive sips and intake of 2 med sized tablets at once without overt s/sx of aspiration. Multiple swallows required. Swallows consistently audible and initiation slowed. Assessment Patient Response to Treatment Good Rehab Potential Fair Assessment of Improvement Significant improvement of vocal production (including duration extended from 1.5 to 3 sec and from strained/ strangled to clear voice) was seen following education of vocal subsystems and diaphragmatic breathing. 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 She also was able to perform all exercises and did produce voicing with lip retraction/rounding exercise. No overt s/sx of aspiration were observed with intake of thin liquid in single and consecutive sips and with oral intake of 2 med size capsules . Swallow continues to be mildly uncoordinated, and she requires multiple swallows per bolus. Appreciate Radiology's scheduling of MBSS. Diet Recommendations Recommendations Continue Current Diet Liquids Order Thin Diet Order Dysphagia Mechanical Medication Recommendations As Tolerated Additional Dietary Needs Chopped Food,Controlled Sips, Reminders to Use Strategies Aspiration Precautions Recommended Precautions Upright at 90 Degrees,Small Bites/Sips,Effortful Swallow, Double Swallow,Lingual Sweep, Check for Pocketing Treatment Plan Placement Recommendation after Discharge Home Appropriate for Continued Therapy Yes Therapy Recommendations MBSS for further evaluation of swallow function/safety and to guide POC. Exercises to increase strength and coordination of swallow musculature and training of compensatory swallow strategies for increased ease and safety with oral intake. Dysphagia Goals 1. The pt will participate in further assessment of swallow function and safety to guide POC. 2. The pt will complete swallow exercises to increase ease and safety associated with oral intake. 3. The pt will use compensatory swallow strategies independently with oral intake to increase airway protection and minimize pharyngeal residue. 4. The pt will tolerate least restrictive diet to meet her nutrition and hydration needs. Follow Up Plan MBSS Jun 11
--- NOTE | 2019-06-08 10:05 | ST.IPDYTX ---
Visit Care Team Role Provider Type Hudson Mcmanus MD Primary Care Provider Physician Specialty: Internal Medicine Address: [address] [place] [address], [address], [place], [address] Email: [email or web address] Marjorie Valdez MD Attending Provider Non-Staff Specialty: Medical Address: [address] [place] [address], [address] Email: LOADING DOCK HELPER Dysphagia Treatment LOADING DOCK HELPER Dysphagia Treatment Start: 05/13/19 12:22 Freq: Status: Active Protocol: Document 06/01/19 18:28 GEOVANNI (Rec: 06/02/19 18:28 GEOVANNI [email or web address]) Dysphagia Treatment Session Time Visit Start Time 12:30 Visit Stop Time 13:15 Total Visit Minutes 45 Visit Information Visit Number 07/05 Plan of Care Dates 05/12/19 - 08/04/19 Insurance Information Medicare Setting Assessment Location Outpatient Care Visit Type Note Type Treatment Note Next Note Type Next Note Type Treatment Note Patient Information Identification Type Name,ID Card Subjective Observations The pt arrived on time with her , who was present throughout the tx. MBSS has been scheduled for Jun 11. No new complaints. Treatment Liquids Trialed Thin Administration Type Cup Single Sip,Cup Consecutive Sips,Self-Feeding Oral Strategies Upright at 90 degrees,Double Swallow,Lingual Sweep Pharyngeal Strategies Sitting Upright (90 deg),Chin Tuck,Double Swallow Treatment Activities Pt completed oral motor exercises with LOADING DOCK HELPER guidance and visual biofeedback (mirror ). MPT = 10.5s. Pt able to produce audible voice throughout session when prompted. Initiated training of laryngeal and pharyngeal swallow exercises, including education of normal swallow function via animation and verbal explanation, as well as demonstration of exercises. Pt performed Jazzy, base and back of tongue, and Joe via humming at high pitch. Instructions for all exercises were provided orally with demonstration and in writing. Both pt and spoused verbalized understanding. The pt consumed thin liquid in single and consecutive sips. Multiple swallows required. Swallows consistently audible and initiation slowed. Coughing x2, occasional wet vocal quality observed. Pt instructed to clear throat and swallow to clear voice. This was moderately effective. Assessment Patient Response to Treatment Good Rehab Potential Fair Assessment of Improvement Increased phonation duration to 10.5s and increased phonation in speech with and without prompts. Pt able to perform exercises with effort, and benefits from visual biofeedback for oral motor tasks. She continues with slow , audible swallows, increased coughing observed today with intake of thin liquid from cup . Pt felt this was from taking too large of sips. Improved with smaller sips. Continue tx per POC. Diet Recommendations Recommendations Continue Current Diet Liquids Order Thin Diet Order Dysphagia Mechanical Medication Recommendations As Tolerated Additional Dietary Needs Chopped Food,Controlled Sips, Reminders to Use Strategies Aspiration Precautions Recommended Precautions Upright at 90 Degrees,Small Bites/Sips,Effortful Swallow, Double Swallow,Lingual Sweep, Check for Pocketing Treatment Plan Placement Recommendation after Discharge Home Appropriate for Continued Therapy Yes Therapy Recommendations MBSS for further evaluation of swallow function/safety and to guide POC. Exercises to increase strength and coordination of swallow musculature and training of compensatory swallow strategies for increased ease and safety with oral intake. Dysphagia Goals 1. The pt will participate in further assessment of swallow function and safety to guide POC. 2. The pt will complete swallow exercises to increase ease and safety associated with oral intake. 3. The pt will use compensatory swallow strategies independently with oral intake to increase airway protection and minimize pharyngeal residue. 4. The pt will tolerate least restrictive diet to meet her nutrition and hydration needs. Follow Up Plan MBSS Jun 11
--- NOTE | 2019-06-08 15:27 | ST.IPDYTX ---
Visit Care Team Role Provider Type Hudson Mcmanus MD Primary Care Provider Physician Specialty: Internal Medicine Address: [address] [place] [address], [address], [place], [address] Email: [email or web address] Marjorie Valdez MD Attending Provider Non-Staff Specialty: Medical Address: [address] [place] [address], [place], [address] Email: OTOLARYNGOLOGY SURGEON Dysphagia Treatment OTOLARYNGOLOGY SURGEON Dysphagia Treatment Start: 05/13/19 12:22 Freq: Status: Active Protocol: Document 06/08/19 14:24 GEOVANNI (Rec: 06/08/19 14:31 GEOVANNI [email or web address]) Dysphagia Treatment Session Time Visit Start Time 13:30 Visit Stop Time 14:15 Total Visit Minutes 45 Visit Information Visit Number 08/02 Plan of Care Dates 05/12/19 - 08/04/19 Insurance Information Medicare Setting Assessment Location Outpatient Care Visit Type Note Type Treatment Note Next Note Type Next Note Type Treatment Note Patient Information Identification Type Name,ID Card Subjective Observations The pt arrived on time with her , who was present throughout the tx. MBSS has been scheduled for Jun 11. No new complaints. Pt had questions RE pharyngeal swallow exercises that were addressed. Treatment Liquids Trialed Thin Administration Type Cup Single Sip,Cup Consecutive Sips,Self-Feeding Oral Strategies Upright at 90 degrees,Double Swallow,Lingual Sweep Pharyngeal Strategies Sitting Upright (90 deg),Chin Tuck,Double Swallow Treatment Activities Pt expressed and exhibited difficulty completing Joe and Jazzy maneuvers and tongue base exercises. Techniques were modified as follows to ease pt 's understanding and ability to complete: Joe: Modified to laryngeal lift exercise by lifting paper pieces with straw. Pt completed and was able to hold paper to straw for 15 sec. Jazzy: Pt better able to perform following sips of water. Pt encouraged to sip water as needed to perform task. Base of Tongue: Minimal tongue base contraction observed via palpation as pt pressed tongue body or tongue tip to roof of mouth. Minimal improvement having pt trace hard palate with tongue tip. Best contraction achieved with tongue tip presses against resistance of tongue depressor . Pt completed back of tongue exercises with min cues for crisp sound of /k/ and /g/. No overt s/sx of aspiration observed with thin liquid sipped throughout the session. Assessment Patient Response to Treatment Good Rehab Potential Fair Assessment of Improvement Improved understanding of exercises and ability to perform with modifications. Pt safely consumed thin liquid throughout session. Continue tx per POC. Diet Recommendations Recommendations Continue Current Diet Liquids Order Thin Diet Order Dysphagia Mechanical Medication Recommendations As Tolerated Additional Dietary Needs Chopped Food,Controlled Sips, Reminders to Use Strategies Aspiration Precautions Recommended Precautions Upright at 90 Degrees,Small Bites/Sips,Effortful Swallow, Double Swallow,Lingual Sweep, Check for Pocketing Treatment Plan Placement Recommendation after Discharge Home Appropriate for Continued Therapy Yes Therapy Recommendations MBSS for further evaluation of swallow function/safety and to guide POC. Exercises to increase strength and coordination of swallow musculature and training of compensatory swallow strategies for increased ease and safety with oral intake. Dysphagia Goals 1. The pt will participate in further assessment of swallow function and safety to guide POC. 2. The pt will complete swallow exercises to increase ease and safety associated with oral intake. 3. The pt will use compensatory swallow strategies independently with oral intake to increase airway protection and minimize pharyngeal residue. 4. The pt will tolerate least restrictive diet to meet her nutrition and hydration needs. Follow Up Plan [facility] Jun 11
--- NOTE | 2019-06-15 16:03 | ST.IPDYTX ---
Visit Care Team Role Provider Type Hudson Mcmanus MD Primary Care Provider Physician Specialty: Internal Medicine Address: [address] [place] [address], [address], [place], [address] Email: [email or web address] Marjorie Valdez MD Attending Provider Non-Staff Specialty: Medical Address: [address] [place] [address], [id number] Email: FILM EDITOR Dysphagia Treatment FILM EDITOR Dysphagia Treatment Start: 05/13/19 12:22 Freq: Status: Active Protocol: Document 06/15/19 15:14 GEOVANNI (Rec: 06/15/19 16:02 GEOVANNI [email or web address]) Dysphagia Treatment Session Time Visit Start Time 14:30 Visit Stop Time 15:10 Total Visit Minutes 40 Visit Information Visit Number 09/02 Plan of Care Dates 05/12/19 - 08/04/19 Insurance Information Medicare Setting Assessment Location Outpatient Care Visit Type Note Type Treatment Note Next Note Type Next Note Type Treatment Note Patient Information Identification Type Name,ID Card Subjective Observations The pt arrived on time with her , who was present throughout the tx. The pt is getting over a cold that has lasted the past week. Due to not feeling well, she was not fully compliant with HEP but verbalized intention to resume now that she is feeling better. The pt also informed of swelling at left side of neck, which her states has been present intermittently for 1-2 yrs. He reported having discussed this with several doctors, including PCP , with no identifiable cause. This FILM EDITOR informed the pt's Physical Therapist, Harriet Colvin, of the condition. Harriet agreed to look at this during the pt's next PT appointment, tomorrow. MBSS has been performed (06/11) and revealed moderate oropharyngeal dysphagia characterized by absence of anterior hyoid movement, reduced laryngeal elevation, epiglottic movement, tongue base retraction, PES opening and laryngealestibular closure allowing for flash penetration and one episode of trace aspiration with thin liquids with no response. No penetration or aspiration observed with any other trials ; however, pharyngeal clearance and residue worsened with more viscous textures. Compensatory strategies recommended: decrased bolus volume, use of effortful swallow, and additional dry swallows to decrease pharyngeal residue. Recommended continueing dysphagia exercises. Treatment Liquids Trialed Thin Oral Strategies Upright at 90 degrees,Double Swallow,Lingual Sweep Pharyngeal Strategies Sitting Upright (90 deg),Chin Tuck,Double Swallow Treatment Activities Education provided to pt/ spouse RE MBSS results including video review and recommendations. Corrolated impairments to exercises currently part of pt's HEP and discussed recommendations for inclusion of Shaker exercise and consideration of NMES/ VitalStim therapy, given the extent of impairments revealed by MBSS. The pt was agreeable to all recommendations and consideration of NMES. She has a PT appt tmw at this facility. This FILM EDITOR discussed with pt's PT, Harriet Colvin, attempting Shaker exercise during that session with PT assistance and FILM EDITOR oversight. PT was agreeable. Over course of session, the pt consumed single sips of water and exhibited strong wet coughs x2 immediately following swallow. Skilled feedback/education provided RE reduced strength of muscles secondary to illness and resulting increased risk of aspiration. Instructed pt to comply strictly with general aspiration precautions as well as compensatory swallow strategies while she continues to recover from cold. She verbalized understanding, as did her . Assessment Patient Response to Treatment Good Rehab Potential Fair Assessment of Improvement Moderate Oropharyngeal Dysphagia as characterized above, per MBSS results. Given the extent of impairments and the presence of a progressive disease, inclusion of NMES and Shaker exercise to HEP is recommended if the pt is able to tolerate. Will assess Shaker tolerance tomorrow with Harriet Colvin PT, during the pt's PT appt tomorrow. If pt is unable to tolerate, will incorporate CTAR exercises. Will discuss NMES further with pt/spouse at next ST appt. Diet Recommendations Recommendations Continue Current Diet Liquids Order Thin Diet Order Mechanical Soft Medication Recommendations As Tolerated Additional Dietary Needs Reminders to Use Strategies Aspiration Precautions Recommended Precautions Upright at 90 Degrees,Small Bites/Sips,Effortful Swallow, Double Swallow,Lingual Sweep, Check for Pocketing Treatment Plan Placement Recommendation after Discharge Home Appropriate for Continued Therapy Yes Therapy Recommendations MBSS for further evaluation of swallow function/safety and to guide POC. Exercises to increase strength and coordination of swallow musculature and training of compensatory swallow strategies for increased ease and safety with oral intake. Dysphagia Goals 1. The pt will participate in further assessment of swallow function and safety to guide POC. 2. The pt will complete swallow exercises to increase ease and safety associated with oral intake. 3. The pt will use compensatory swallow strategies independently with oral intake to increase airway protection and minimize pharyngeal residue. 4. The pt will tolerate least restrictive diet to meet her nutrition and hydration needs. Follow Up Plan [facility] [place] Jun 11
--- NOTE | 2019-06-23 17:41 | ST.IPDYTX ---
Visit Care Team Role Provider Type Hudson Mcmanus MD Primary Care Provider Physician Specialty: Internal Medicine Address: [address] [place] [address], [address], [place], [address] Email: [email or web address] Marjorie Valdez MD Attending Provider Non-Staff Specialty: Medical Address: [address] [place] [address], [place], [address] Email: MARINE FIRER Dysphagia Treatment MARINE FIRER Dysphagia Treatment Start: 05/13/19 12:22 Freq: Status: Active Protocol: Document 06/22/19 17:35 GEOVANNI (Rec: 06/23/19 17:41 GEOVANNI [email or web address]) Dysphagia Treatment Session Time Visit Start Time 14:30 Visit Stop Time 15:15 Total Visit Minutes 45 Visit Information Visit Number 10/02 Plan of Care Dates 05/12/19 - 08/04/19 Insurance Information Medicare Setting Assessment Location Outpatient Care Visit Type Note Type Treatment Note Next Note Type Next Note Type Treatment Note Patient Information Identification Type Name,ID Card Subjective Observations The pt arrived on time with her , who was present throughout the tx. Treatment Liquids Trialed Thin Solids Trialed Puree,Dysphagia Mechanical, Regular Administration Type Cup Single Sip,Cup Consecutive Sips,Self-Feeding Oral Strategies Upright at 90 degrees,Double Swallow,Lingual Sweep Pharyngeal Strategies Sitting Upright (90 deg),Chin Tuck,Double Swallow Additional Dysphagia Treatment Medications (2 medium sized Strategies tablets) Treatment Activities Attempted to train pt in Shaker exercise. Pt transferred to therapy bed with help of . Pt's physical therapist evaluated swelling at neck and determined no contraindication for exercise. Pt attempted exercise but was unable to tolerate lying flat. Exercise was discontinued for pt safety /comfort and pt's assisted in transferring her back to her WC. Trained pt in CTAR using rolled towel. Pt performed per instructions. Pt completed the rest of her HEP swallow exercises with skilled feedback. Assessment Patient Response to Treatment Good Rehab Potential Fair Assessment of Improvement Pt unable to participate in Shaker exercise but able to perform CTAR for hyolaryngeal elevation. She demonstrated good performance of other exercises with minimal need for cues. She continues to demonstrate weakness, demonstrating need for continued skilled intervention . She consumed sips of thin liquid without overt s/sx of aspiration during session. Diet Recommendations Recommendations Continue Current Diet Liquids Order Thin Diet Order Mechanical Soft Medication Recommendations As Tolerated Additional Dietary Needs Reminders to Use Strategies Aspiration Precautions Recommended Precautions Upright at 90 Degrees,Small Bites/Sips,Effortful Swallow, Double Swallow,Lingual Sweep, Check for Pocketing Treatment Plan Placement Recommendation after Discharge Home Appropriate for Continued Therapy Yes Therapy Recommendations MBSS for further evaluation of swallow function/safety and to guide POC. Exercises to increase strength and coordination of swallow musculature and training of compensatory swallow strategies for increased ease and safety with oral intake. Dysphagia Goals 1. The pt will participate in further assessment of swallow function and safety to guide POC. 2. The pt will complete swallow exercises to increase ease and safety associated with oral intake. 3. The pt will use compensatory swallow strategies independently with oral intake to increase airway protection and minimize pharyngeal residue. 4. The pt will tolerate least restrictive diet to meet her nutrition and hydration needs. Follow Up Plan [facility] [place] Jun 11
--- NOTE | 2019-07-06 18:40 | ST.IPDYTX ---
Visit Care Team Role Provider Type Hudson Mcmanus MD Primary Care Provider Physician Specialty: Internal Medicine Address: [address] [place] [address], [address], [place], [address] Email: [email or web address] Marjorie Valdez MD Attending Provider Non-Staff Specialty: Medical Address: [address] [place] [address], [address] Email: PSYCH NURSE Dysphagia Treatment PSYCH NURSE Dysphagia Treatment Start: 05/13/19 12:22 Freq: Status: Active Protocol: Document 07/06/19 18:31 GEOVANNI (Rec: 07/06/19 18:40 GEOVANNI [email or web address]) Dysphagia Treatment Session Time Visit Start Time 14:30 Visit Stop Time 15:20 Total Visit Minutes 50 Visit Information Visit Number 11/02 Plan of Care Dates 05/12/19 - 08/04/19 Insurance Information Medicare Setting Assessment Location Outpatient Care Visit Type Note Type Treatment Note Next Note Type Next Note Type Treatment Note Patient Information Identification Type Name,ID Card Subjective Observations The pt arrived on time with her , who was present throughout the tx. Pt reported poor compliance with HEP stating that she was unsure what the swallow exercises were targeting. Treatment Liquids Trialed Thin Solids Trialed Puree,Dysphagia Mechanical, Regular Administration Type Cup Single Sip,Cup Consecutive Sips,Self-Feeding Oral Strategies Upright at 90 degrees,Double Swallow,Lingual Sweep Pharyngeal Strategies Sitting Upright (90 deg),Chin Tuck,Double Swallow Additional Dysphagia Treatment Medications (2 medium sized Strategies tablets) Treatment Activities Consulted with pt/spouse RE HEP compliance. Educated pt in targets of all prescribed exercises orally and in writing with updated written instructions. The pt verbalized understanding and that information in writing was helpful. Further education and training was provided RE oral motor exercises to reduce masked facies and vocal exercises to improve respiratory support for voice, speech, and swallow safety/cough response. The pt performed sustained phonation up to 8 seconds and counting on single breath up to 15 with avg loudness level of 64 dB. With verbal prompts and encouragement, the pt exhibited vocal loudness in structured tasks near or at lower end of normal limits. In spontaneous conversation, she frequently reverted to whispers but was responsive to verbal prompts to repeat herself with audible voice. The pt consumed thin liquid intermittently throughout the session with hard extensive cough x1. Assessment Patient Response to Treatment Good Rehab Potential Fair Assessment of Improvement The pt was receptive and responsive to education and further training of vocal tasks, producing voice near or at lower limits of normal loudness, demonstrating ability to produce respiratory strength and control for at least short amounts of time. The pt was also receptive to encouragement and instruction RE importance of HEP compliance and verbalized intention to improve. Pt continues to show general tolerance of thin liquid consumption with occasional airway compromise, particularly when pt is distracted or consumes large amounts at a time. Diet Recommendations Recommendations Continue Current Diet Liquids Order Thin Diet Order Mechanical Soft Medication Recommendations As Tolerated Additional Dietary Needs Reminders to Use Strategies Aspiration Precautions Recommended Precautions Upright at 90 Degrees,Small Bites/Sips,Effortful Swallow, Double Swallow,Lingual Sweep, Check for Pocketing Treatment Plan Placement Recommendation after Discharge Home Appropriate for Continued Therapy Yes Therapy Recommendations Exercises to increase strength and coordination of swallow musculature and training of compensatory swallow strategies for increased ease and safety with oral intake. Dysphagia Goals 1. The pt will participate in further assessment of swallow function and safety to guide POC. 2. The pt will complete swallow exercises to increase ease and safety associated with oral intake. 3. The pt will use compensatory swallow strategies independently with oral intake to increase airway protection and minimize pharyngeal residue. 4. The pt will tolerate least restrictive diet to meet her nutrition and hydration needs.
--- NOTE | 2019-12-01 08:59 | ST.IPDYTX ---
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
== END 2019-12-03 08:15 ==
LOC: SP 14:30
PROVIDERS: PCP Internal Medicine; Visit Provider Psychiatry & Neurology Neurology
DX: G20 Parkinson's disease (principal); R13.10 Dysphagia, unspecified
CPT/HCPCS: 92507; 92526; 92610

== ENCOUNTER 2019-07-21 07:21 | Emergency (ER) | payer MEDICARE, SELFPAY ==
[2019-07-21 07:32] VITALS: BP 110/83; PULSE 90; RESP 18; TEMP 37; O2SAT 91
--- NOTE | 2019-07-21 07:41 | DI.RAD.S_ITS ---
PROCEDURE: XR RIBS RT MIN 3V W CXR 1V INDICATIONS: Pain after fall eval for fracture TECHNIQUE: 2 views of the right ribs were acquired, along with a single view chest. COMPARISON: [facility], CR, XR CHEST 1V, 05/03/2018, 20:16. Prior chest. plain films 05/03/18 and 04/10/18 and 07/13/17 reviewed. FINDINGS: Surgical changes and devices: Bilateral antral devices with leads extending cephalad into the neck region above the imaging margin are present, previously also the case. The chest shows no definite evidence of prior surgery. Bones and chest wall: No fractures or dislocations. No suspicious bony lesions. Overlying soft tissues appear unremarkable. Lungs and pleura: No pleural effusions or pneumothorax. Lungs appear abnormal, with linear stranding at the left lung base perhaps reflecting atelectasis, but lobulated pleural thickening and relatively extensive lung parenchymal alveolar infiltration at the right lung most prominent at the lower half.. Mediastinum: Mediastinal contours appear normal. Heart size is normal. IMPRESSION: No acute trauma found, but there is abnormality at the right hemithorax which may represent pneumonia or neoplasm. Much of the right mid and lower lung are opacified, and there is lobulated pleural thickening to the degree that followup by contrast enhanced chest CT scanning may be warranted at this time. Bilateral antral devices with leads extending cephalad likely related to a stated clinical history of Parkinson's disease. Dictated by: Alexander Vasquez M.D. on 07/21/2019 at 8:33 Approved by: Alexander Vasquez M.D. on 07/21/2019 at 8:38
--- NOTE | 2019-07-21 08:11 | ED_ITS ---
HPI - Fall General Chief Complaint: Fall Stated Complaint: right side pain, fall 2/3 days ago/weak Time Seen by Provider: 07/21/19 07:40 Source: patient and family Mode of arrival: Wheelchair Limitations: no limitations History of Present Illness HPI Narrative: This is a 74-year-old female comes to the emergency department. Patient has Parkinson's. She had a fall about 3 days ago. She fell onto her side and she has had pain that is been developing over the last 3 days on her right rib area. Patient and her have not noticed any bruising or skin changes. Patient is typically in a wheelchair but she does use the toilet. She has quite a bit of debility movement typically. Patient did not hit head. She did not have any back pain or pain elsewhere. They drove down to [place] for an appointment with her Parkinson's specialist and on the way back she started having increasing pain on the right side of the chest. Patient has some point tenderness according to the as well as on exam. But patient has also been having some fevers for the last several days even before fall with a T-max of 101.5?. She chronically has a runny nose she chronically has a cough there are not any new changes. She has not had any abdominal pain. No vomiting or nausea. No changes with bowel movements. No new changes with urination. No rashes or skin changes otherwise. She has a little bruising under her left eye has been states that is actually from Botox injections for her Parkinson's and not from the fall. Patient is able to communicate some but has a little bit of difficulty and has minimal movement without assistance. Related Data Home Medications Medication Instructions Recorded Confirmed donepezil [Aricept] 10 mg PO QDAY #0 05/05/12 07/21/19 aspirin 81 mg tablet,delayed 81 mg PO DAILY 01/14/18 07/21/19 release ketoconazole 2 % topical cream 1 applictn TOP .PRN #30 gram 01/14/19 07/21/19 venlafaxine 75 mg capsule,extended 75 mg PO DAILY #90 cap 01/14/19 07/21/19 release 24 hr clonazepam 0.5 mg tablet 1.5 mg PO BEDTIME #90 tab 03/10/19 07/21/19 lorazepam 1 mg tablet See Rx Instructions PO DAILY PRN 03/10/19 07/21/19 tab trihexyphenidyl 2 mg tablet 4 mg PO DAILY tab 03/10/19 07/21/19 carbidopa 10 mg-levodopa 100 mg 5 tab PO 0900,1200,1500 PRN tab 06/03/19 07/21/19 tablet Previous Rx's Medication Instructions Recorded albuterol sulfate [Ventolin HFA] 1 - 2 puff INH Q4HP PRN #1 ea 07/11/16 Disabled Parking #1 each 01/08/18 metoprolol succinate 25 mg 25 mg PO DAILY #90 tab 10/30/18 tablet,extended release 24 hr fluticasone 250 mcg-salmeterol 50 2 each INHALATION BID #60 dose 03/10/19 mcg/dose blistr powdr for inhalation oxycodone-acetaminophen 5 mg-325 1 tab PO Q4HP PRN #90 tab 06/03/19 mg tablet Allergies Allergy/AdvReac Type Severity Reaction Status Date / Time levofloxacin Allergy Severe Hives, Verified 07/21/19 12:33 Water Blisters, Small Fever fentanyl Allergy Unknown Verified 07/21/19 12:33 hydromorphone Allergy Unknown Verified 07/21/19 12:33 Penicillins Allergy Unknown Verified 07/21/19 12:33 Review of Systems Review of Systems ROS Unobtainable: All systems reviewed & are unremarkable except as noted in HPI and below Patient History Medical History Dysphagia, neurologic (Chronic) Mild intermittent asthma without complication (Chronic 01/18/11) Osteoporosis (Chronic 01/18/11) Parkinson's disease (Chronic 01/18/11) Surgical History History of surgery (Resolved) Status post hysterectomy with oophorectomy Social History Smoking Status: Never smoker Smoking Status: Never smoker Substance Use Type: does not use Exam Narrative Exam Narrative: GEN: well nourished, female, alert and oriented x 3, patient appears to be in mild distress. HEENT: Atraumatic, pupils are equal round reactive to light, extraocular movements are intact, patient has some lower periorbital ecchymosis on the left, per this is secondary to her Botox injection for her Parkinson's. Nares are clear, TMs are clear with no fluid, there is no conjunctival pallor. Throat is clear without any exudates, erythema, tonsillar enlargement or uvular deviation HEART: Regular rate and rhythm without murmur, clicks, rubs. Pulses are equal in upper and lower extremities LUNGS:Lungs clear to auscultation, no wheezes, rales, crackles, chest moves symmetrically, no bruising or ecchymosis. No subcutaneous emphysema. Patient does have point tenderness on the right lateral ribs around the she 7 8 region. ABD:bowel sounds normal, soft, non-tender, no guarding, rebound, rigidity, no masses noted, no hepatosplenomegaly :No CVA tenderness BACK: No cervical, thoracic or lumbar vertebral point tenderness. Patient has decreased range of motion secondary to her Parkinson's Patient's debilitated and in a wheelchair permanently. Muscle strength unable to be tested 2nd spasticity. Patient does not have any bony tenderness of her extremities. MSCL: Non-tender. NEURO:CN 2-12 intact, sensation normal Initial Vital Signs Initial Vital Signs: Vital Signs Temperature 98.6 F 07/21/19 07:32 Pulse Rate 90 07/21/19 07:32 Respiratory Rate 18 07/21/19 07:32 Blood Pressure 110/83 07/21/19 07:32 Pulse Oximetry 91 07/21/19 07:32 Scores GCS Grace coma scale eye opening: Spontaneous Isael coma scale verbal response: Orientated Grace coma scale motor response: Obey commands Grace coma scale total score: 15 Course Orders Ordered: ED Orders 07/21/19 10:15 Blood Culture Stat Discontinued Medications Sodium Chloride (Normal Saline 0.9%) 1,000 mls @ 1,000 mls/hr IV BOLUS ONE Stop: 07/21/19 09:42 Last Infusion: 07/21/19 12:39 Dose: 0 mls/hr Documented by: Admin: 07/21/19 09:21 Dose: 1,000 mls/hr Documented by: ROSARIO Ceftriaxone Sodium/Dextrose (Rocephin) 1 gm in 50 mls @ 100 mls/hr IV NOW ONE Stop: 07/21/19 10:27 Last Admin: 07/21/19 10:20 Dose: Not Given Documented by: SERVANDO Vancomycin HCl/Dextrose (Vancomycin) 1,500 mg in 300 mls @ 200 mls/hr IV NOW ONE Stop: 07/21/19 11:46 Last Infusion: 07/21/19 11:58 Dose: 0 mls/hr Documented by: Admin: 07/21/19 10:23 Dose: 200 mls/hr Documented by: SERVANDO Oxycodone/Acetaminophen (Percocet 5/325) 1 tab PO NOW ONE Stop: 07/21/19 08:37 Last Admin: 07/21/19 09:22 Dose: 1 tab Documented by: BTONER Vital Signs Vital signs: Vital Signs - 8 hr 07/21/19 07:32 Temperature 98.6 F Pulse Rate 90 Respiratory Rate 18 Blood Pressure 110/83 Pulse Oximetry 91 MDM - Fall Lab Data Attestation: I reviewed the patient's lab results. Result diagrams: 07/21/19 09:15 07/21/19 09:15 Labs: Lab Results 07/21/19 07/21/19 07/21/19 Range/Units 09:15 09:15 09:15 WBC 17.7 H (4.5-11.0) X10^3/uL RBC 3.67 L (4.0-5.2) X10^6/uL Hgb 11.0 L (12.0-16.0) g/dL Hct 33.4 L (36-46) % MCV 90.9 (80-100) fL MCH 30.0 (26-34) PG MCHC 33.0 (30-36) % RDW 13.8 (11.6-14.8) % Plt Count 341 (150-400) X10^3/uL Neut % (Auto) 88.7 H (50-75) % Lymph % (Auto) 5.1 L (25-40) % [place] % (Auto) 5.4 (3-14) % Eos % (Auto) 0.0 L (2-4) % Baso % (Auto) 0.8 (0-2) % Neut # (Auto) 01923 H (2207-9937) /uL Lymph # (Auto) 900 L (1388-6758) /uL [place] # (Auto) 1000 H (0-900) /uL Eos # (Auto) 0 (0-450) /uL Baso # (Auto) 100 (0-100) /uL Sodium 138 (137-145) mmol/L Potassium 4.4 (3.4-5.1) mmol/L Chloride 102 (98-107) mmol/L Carbon Dioxide 25 (22-32) mmol/L BUN 17 (7-17) mg/dL Creatinine 0.80 (0.52-1.04) mg/dL Estimated GFR > 60.0 (>60) mL/min BUN/Creatinine Ratio 21.3 (6-22) Glucose 106 (80-110) mg/dL Lactate (0.7-2.1) mmol/L Calcium 9.0 (8.4-10.2) mg/dL Total Bilirubin 0.9 (0.2-1.3) mg/dL AST 19 (14-36) IU/L ALT 13 (<35) IU/L Alkaline Phosphatase 99 (38-126) U/L Total Protein 7.5 (6.3-8.2) g/dL Albumin 3.9 (3.5-5.0) g/dL Globulin 3.6 (1.7-4.1) g/dL Albumin/Globulin Ratio 1.1 (1.0-2.8) Lipase 15 L (23-300) U/L Procalcitonin 0.84 H (<0.5) ng/mL Urine Color Urine Appearance Urine pH (4.5-8.0) Ur Specific [place] (1.000-1.035) Urine Protein (Negative) Urine Glucose (UA) (Negative) g/dL Urine Ketones (NEGATIVE) Urine Occult Blood (Negative) Urine Nitrate (Negative) Urine Bilirubin (NEGATIVE) Ur Bilirubin Confirm (Negative) Urine Urobilinogen (0.2) E.U./dL Ur Leukocyte Esterase (NEGATIVE) Urine RBC (0-5/HPF) Urine WBC (0-5/HPF) Urine Bacteria (None) Hyaline Casts (None) Urine Mucus (Negative) Ur Culture Indicated? 07/21/19 07/21/19 Range/Units 09:15 09:15 WBC (4.5-11.0) X10^3/uL RBC (4.0-5.2) X10^6/uL Hgb (12.0-16.0) g/dL Hct (36-46) % MCV (80-100) fL MCH (26-34) PG MCHC (30-36) % RDW (11.6-14.8) % Plt Count (150-400) X10^3/uL Neut % (Auto) (50-75) % Lymph % (Auto) (25-40) % [place] % (Auto) (3-14) % Eos % (Auto) (2-4) % Baso % (Auto) (0-2) % Neut # (Auto) (1817-6858) /uL Lymph # (Auto) (8877-1493) /uL [place] # (Auto) (0-900) /uL Eos # (Auto) (0-450) /uL Baso # (Auto) (0-100) /uL Sodium (137-145) mmol/L Potassium (3.4-5.1) mmol/L Chloride (98-107) mmol/L Carbon Dioxide (22-32) mmol/L BUN (7-17) mg/dL Creatinine (0.52-1.04) mg/dL Estimated GFR (>60) mL/min BUN/Creatinine Ratio (6-22) Glucose (80-110) mg/dL Lactate 0.8 (0.7-2.1) mmol/L Calcium (8.4-10.2) mg/dL Total Bilirubin (0.2-1.3) mg/dL AST (14-36) IU/L ALT (<35) IU/L Alkaline Phosphatase (38-126) U/L Total Protein (6.3-8.2) g/dL Albumin (3.5-5.0) g/dL Globulin (1.7-4.1) g/dL Albumin/Globulin Ratio (1.0-2.8) Lipase (23-300) U/L Procalcitonin (<0.5) ng/mL Urine Color [place] Urine Appearance Sl cloudy Urine pH 5.0 (4.5-8.0) Ur Specific [place] 1.025 (1.000-1.035) Urine Protein 2+ H (Negative) Urine Glucose (UA) Negative (Negative) g/dL Urine Ketones 1+ H (NEGATIVE) Urine Occult Blood 2+ H (Negative) Urine Nitrate Positive H (Negative) Urine Bilirubin 2+ H (NEGATIVE) Ur Bilirubin Confirm Negative (Negative) Urine Urobilinogen 0.2 (0.2) E.U./dL Ur Leukocyte Esterase Negative (NEGATIVE) Urine RBC 1-5/hpf (0-5/HPF) Urine WBC 5-10/hpf H (0-5/HPF) Urine Bacteria Many (>30) H (None) Hyaline Casts 1-5/lpf (None) Urine Mucus 3+ H (Negative) Ur Culture Indicated? Specimen cultured Imaging Data Chest x-ray: Radiologist's Impression: [address] [address] XRay Report Signed Patient: Elise Villalta [facility]#: [id number] : 6Acct:[id number] Age/Sex: 74 / FDate of Service: 07/21/19 Loc: ED Accession Number: [id number] Procedure: XR ribs RT min 3V w CXR1V Ordering Provider: Jay Beckham D.O. PROCEDURE: XR RIBS RT MIN 3V W CXR 1V INDICATIONS: Pain after fall eval for fracture TECHNIQUE: 2 views of the right ribs were acquired, along with a single view chest. COMPARISON: [facility], , XR CHEST 1V, 05/03/2018, 20:16. Prior chest. plain films 05/03/18 and 04/10/18 and 07/13/17 reviewed. FINDINGS: Surgical changes and devices: Bilateral antral devices with leads extending cephalad into the neck region above the imaging margin are present, previously also the case. The chest shows no definite evidence of prior surgery. Bones and chest wall: No fractures or dislocations. No suspicious bony lesions. Overlying soft tissues appear unremarkable. Lungs and pleura: No pleural effusions or pneumothorax. Lungs appear abnormal, with linear stranding at the left lung base perhaps reflecting atelectasis, but l obulated pleural thickening and relatively extensive lung parenchymal alveolar infiltration at the right lung most prominent at the lower half.. Mediastinum: Mediastinal contours appear normal. Heart size is normal. IMPRESSION: No acute trauma found, but there is abnormality at the right hem ithorax which may represent pneumonia or neoplasm. Much of the right mid and lower lung are opacified, and there is lobulated pleural thickening to the degree that followup by contrast enhanced chest CT scanning may be warranted at this time. Bilateral antral devices with leads extending cephalad likely related to a stated clinical history of Parkinson's disease. Dictated by: Alexander Vasquez M.D. on 07/21/2019 at 8:33 Approved by: Alexander Vasquez M.D. on 07/21/2019 at 8:38 CT scan - chest: Radiologist's Impression: Elise Villalta 74 F [address] [address] [address] Scan Report Signed Patient: Elise Villalta [facility]#: [id number] : 1945cct:[id number] Age/Sex: 74 / FDate of Service: 07/21/19 Loc: ED Accession Number: [id number] Procedure: CT chest w con Ordering Provider: Erlinda Sanchez D.O. PROCEDURE: CT CHEST W CON INDICATIONS: pneumonia vs other, recent fevers, also fall 3 days ago TECHNIQUE: After the administration of intravenous contrast, 5 mm thick sections acquired from the pulmonary apices to the posterior costophrenic angles. 1 mm axial lung, 5 mm thick coronal and sagittal reformats and 7 mm axial MIP were acquired. For radiation dose reduction, the following was used: automated exposure control, adjustment of mA and/or kV according to patient size. COMPARISON: None. FINDINGS: Image quality: Excellent. Lungs and pleura: There is a dense pneumonia pattern within the right mid and lower lung, and mucous plugging is present within the right lower lobe bronchus, which is partially calcified (series 4 image 33). At the same axial level there is a necrotic appearing portion of the infiltrated right mid lung, with a rim of hypo-enhancement and a central liquid radiodensity with the overall dimensions measuring up to 3.3 cm AP and 3.7 cm transverse with a similar craniocaudad dimension. This is associated with a exudative multiloculated appearing lobulated right pleural effusion, with pleural thickening and enhancement but without a discrete pleural mass.. No pleural effusions or pneu mothorax. Central and peripheral airways are patent and normal in caliber. Mediastinum: Heart size is normal when a relatively short AP dimension of the chest is taken into account. No pericardial effusion. No mediastinal or hilar adenopathy by size criteria. Central pulmonary arteries are normal in size and the ascending aorta measures up to 4.7 cm AP and 4.6 cm transverse. Esophagus is normal in caliber. No hiatal hernia. Bones and chest wall: No suspicious bony lesions. No vertebral body compression fractures. No axillary or supraclavicular adenopathy by size criteria. Thyroid gland is not well-seen. Stimulator electrodes extend from control devices at the anterior chest wall cephalad towards the neck-likely related to Parkinson's disease treatment. Abdomen: Visualized upper abdominal solid organs appear normal. Upper abdominal bowel loops are normal in caliber. IMPRESSION: Dense pneumonia pattern right mid and lower lung with base in region of right midlung mucous plugging and adjacent central necrosis involving the area of presumed pneumonia. This is associated with a multiloculated exudative right pleural effusion, likely internet sales representative of an empyema in this clinical circumstance. Note is made of 2 symmetric control devices with leads extending cephalad into the neck area, in this patient with reported prior Parkinson's disease. Dictated by: Alexander Vasquez M.D. on 07/21/2019 at 10:03 Approved by: Alexander Vasquez M.D. on 07/21/2019 at 10:[address] [facility] Narrative Medical decision making narrative: Patient's CT is concerning for pneumonia but there are some alterations that would warrant CT imaging. Patient has had recent fevers so most likely infectious although she did have a recent fall and does have exam findings consistent with a clinical rib fracture so evaluation for hemothorax is also appropriate although patient's vitals here are stable today. Chest x-ray shows some pneumonia versus neoplasm. CT scanning was obtained pattern and right mid and lower lung with a right mucus plugging and adjacent central necrosis that area a presumed pneumonia. And multiloculated exact date of right pleural effusion likely empyema. Patient has a white count of 17 with recent fevers although not in the department her normal baseline is between 12 and 11. She has a left shift with neutrophils at 88%, procalcitonin is positive at 0.84 with normal electrolytes and renal function. Blood cultures were obtained and are pending. There was some restriction secondary to penicillin and Levaquin antibiotic allergies. Spoke with patient's primary care service Dr. Mcmanus and Dr. King, and patient may potentially need bronch or further intervention and they feel she would benefit from having pulmonology available plan for transfer. No beds available at [facility], spoke with Dr. Beth who accepts if pulmonology is agreeable, I spoke with Dr. Alejo for pulmonology who states they will consult on the patient. Patient's vitals have been stable other than O2 drops into the 88-89 range occasionally on room air and she was placed on 2 L nasal cannula. Discussed with patient and family that likely she will need a chest tube for empyema they are agreeable to this. We also discussed that there is a possibility she might get a bronchoscopy but this is not confirmed at this time. Patient stable during stay and transferred via ALS to [place]. Discharge Plan Departure Patient Disposition: [facility] Clinical Impression: Empyema, Pneumonia, Abscess of lung Discharge Date/Time: 07/21/19 13:34 Prescriptions: No Action aspirin [Adult Aspirin Regimen] 81 mg tablet,delayed release (DR/EC) 81 mg PO DAILY RF: 0 donepezil [Aricept] 10 MG tablet 10 mg PO QDAY Qty: 0 RF: 0 albuterol sulfate [Ventolin HFA] 90 MCG/PUFF HFA aerosol inhaler 1 - 2 puff INH Q4HP PRNQty: 1 RF: 11 (DME) Disabled Parking Qty: 1 RF: 0 metoprolol succinate 25 mg tablet extended release 24 hr 25 mg PO DAILY Qty: 90 RF: 3 lorazepam 1 mg tablet See Rx Instructions PO DAILY PRN (Reason: agitation) RF: 0 fluticasone propion-salmeterol [Advair Diskus] 250-50 mcg/dose blister with device 2 each inhalation BID Qty: 60 RF: 3 trihexyphenidyl 2 mg tablet 4 mg PO DAILY RF: 0 clonazepam 0.5 mg tablet 1.5 mg PO BEDTIME Qty: 90 RF: 0 venlafaxine 75 mg capsule,extended release 24hr 75 mg PO DAILY Qty: 90 RF: 0 ketoconazole 2 % cream 1 applictn TOP .PRN Qty: 30 RF: 0 carbidopa-levodopa 10-100 mg tablet 5 tab PO 0900,1200,1500 PRN (Reason: muscle spasm) RF: 0 oxycodone-acetaminophen [Percocet] 5-325 mg tablet 1 tab PO Q4HP PRN (Reason: pain) Qty: 90 RF: 0 Referrals: Hudson Mcmanus MD [Primary Care Provider] -
--- NOTE | 2019-07-21 08:43 | DI.CT.S_ITS ---
PROCEDURE: CT CHEST W CON INDICATIONS: pneumonia vs other, recent fevers, also fall 3 days ago TECHNIQUE: After the administration of intravenous contrast, 5 mm thick sections acquired from the pulmonary apices to the posterior costophrenic angles. 1 mm axial lung, 5 mm thick coronal and sagittal reformats and 7 mm axial MIP were acquired. For radiation dose reduction, the following was used: automated exposure control, adjustment of mA and/or kV according to patient size. COMPARISON: None. FINDINGS: Image quality: Excellent. Lungs and pleura: There is a dense pneumonia pattern within the right mid and lower lung, and mucous plugging is present within the right lower lobe bronchus, which is partially calcified (series 4 image 33). At the same axial level there is a necrotic appearing portion of the infiltrated right mid lung, with a rim of hypo-enhancement and a central liquid radiodensity with the overall dimensions measuring up to 3.3 cm AP and 3.7 cm transverse with a similar craniocaudad dimension. This is associated with a exudative multiloculated appearing lobulated right pleural effusion, with pleural thickening and enhancement but without a discrete pleural mass.. No pleural effusions or pneumothorax. Central and peripheral airways are patent and normal in caliber. Mediastinum: Heart size is normal when a relatively short AP dimension of the chest is taken into account. No pericardial effusion. No mediastinal or hilar adenopathy by size criteria. Central pulmonary arteries are normal in size and the ascending aorta measures up to 4.7 cm AP and 4.6 cm transverse. Esophagus is normal in caliber. No hiatal hernia. Bones and chest wall: No suspicious bony lesions. No vertebral body compression fractures. No axillary or supraclavicular adenopathy by size criteria. Thyroid gland is not well-seen. Stimulator electrodes extend from control devices at the anterior chest wall cephalad towards the neck-likely related to Parkinson's disease treatment. Abdomen: Visualized upper abdominal solid organs appear normal. Upper abdominal bowel loops are normal in caliber. IMPRESSION: Dense pneumonia pattern right mid and lower lung with base in region of right midlung mucous plugging and adjacent central necrosis involving the area of presumed pneumonia. This is associated with a multiloculated exudative right pleural effusion, likely bilingual call center representative of an empyema in this clinical circumstance. Note is made of 2 symmetric control devices with leads extending cephalad into the neck area, in this patient with reported prior Parkinson's disease. Dictated by: Alexander Vasquez M.D. on 07/21/2019 at 10:03 Approved by: Alexander Vasquez M.D. on 07/21/2019 at 10:09
[2019-07-21] MEDS: SODIUM CHLORIDE 0.9% 1,000 ML 1000 ML IV (09:21)
[2019-07-21] MEDS: OXYCODONE/ACETAMINOPHEN 5/325 TABLET 1 TAB PO (09:22)
[2019-07-21 09:27] LABS: Add Manual Diff / Slide Review NO; Basophils Absolute Auto 100 /uL (0-100); Basophils Percent Auto 0.8 % (0-2); Eosinophils Absolute Auto 0 /uL (0-450); Hematocrit 33.4 % (36-46); Lymphocytes Absolute Auto 900 /uL (1100-4500); Lymphocytes Percent Auto 5.1 % (25-40); Mean Corpuscular Volume 90.9 fL (80-100); Monocytes Absolute Auto 1000 /uL (0-900); Monocytes Percent Auto 5.4 % (3-14); Neutrophils Absolute Auto 15700 /uL (1500-7000); Neutrophils Percent Auto 88.7 % (50-75); Platelet Count 341 X10^3/uL (150-400); Red Blood Cell Count 3.67 X10^6/uL (4.0-5.2); Red Cell Distribution Width 13.8 % (11.6-14.8); White Blood Cell Count 17.7 X10^3/uL (4.5-11.0)
[2019-07-21 09:36] LABS: Alanine Aminotransferase 13 IU/L (<35); Albumin 3.9 g/dL (3.5-5.0); Albumin Globulin Ratio 1.1 (1.0-2.8); Alkaline Phosphatase 99 U/L (38-126); Aspartate Aminotransferase 19 IU/L (14-36); BUN Creatinine Ratio 21.3 (6-22); Bilirubin Total 0.9 mg/dL (0.2-1.3); Blood Urea Nitrogen 17 mg/dL (7-17); Carbon Dioxide 25 mmol/L (22-32); Chloride 102 mmol/L (98-107); Estimated Glomerular Filt Rate > 60.0 mL/min (>60); Globulin 3.6 g/dL (1.7-4.1); Glucose 106 mg/dL (80-110); HEMOLYSIS < 15 (0-50); Lipase 15 U/L (23-300); Potassium 4.4 mmol/L (3.4-5.1); Sodium 138 mmol/L (137-145); Total Protein 7.5 g/dL (6.3-8.2)
[2019-07-21 10:07] LABS: Procalcitonin 0.84 ng/mL (<0.5)
[2019-07-21 10:08] LABS: Lactate (Lactic Acid) 0.8 mmol/L (0.7-2.1)
[2019-07-21] MEDS: VANCOMYCIN 1,500 MG/300 ML FROZ.PIGGY 200 MG IV (10:23)
[2019-07-21 12:39] LABS: Appearance Urine UA SL CLOUDY; Bilirubin Urine UA 2+ (NEGATIVE); Glucose Urine UA NEGATIVE (Negative); Ketones Urine UA 1+ (NEGATIVE); Leukocyte Esterase Urine UA NEGATIVE (NEGATIVE); Nitrite Urine UA POSITIVE (Negative); Occult Blood Urine UA 2+ (Negative); Protein Urine UA 2+ (Negative); Specific Gravity Urine UA 1.025 (1.000-1.035); Urobilinogen Urine UA 0.2 E.U./dL (0.2)
[2019-07-21 13:03] LABS: Color Urine UA Amber
[2019-07-21 13:04] LABS: Bacteria Urine Many (>30); Culture Indicated Urine Specimen Cultured; Hyaline Casts Urine 1-5/LPF; Ictotest Urine Negative (Negative); Mucus Urine 3+ (Negative); RBC Urine 1-5/HPF (0-5/HPF); WBC Urine 5-10/HPF (0-5/HPF)
== END 2019-07-21 13:34 | disposition short-term general hospital (02) ==
PROVIDERS: Emergency Provider Emergency Medicine; PCP Internal Medicine
DX: J86.9 Pyothorax without fistula (principal); J18.9 Pneumonia, unspecified organism; W18.30XA Fall on same level, unspecified, initial encounter
CPT/HCPCS: 36415; 71101; 71260; 80053; 81001; 83605; 83690; 84145; 85025; 87040; 87086; 96361; 96365; 96366; 99284; 99285; Q9967

== ENCOUNTER 2019-08-19 16:09 | Emergency (ER) | payer MEDICARE, SELFPAY ==
[2019-08-19 16:10] VITALS: BP 137/62; PULSE 77; RESP 13; TEMP 36.6; O2SAT 90
--- NOTE | 2019-08-19 16:19 | DI.RAD.S_ITS ---
PROCEDURE: XR FEMUR LT MIN 2V INDICATIONS: pain sp fall TECHNIQUE: 2 views of the femur were acquired. COMPARISON: [facility], CR, XR HIP W PEL IF DONE LT 2V, 08/19/2019, 16:16. FINDINGS: Bones: No fractures or dislocations. No suspicious bony lesions. Left hip arthroplasty hardware is seen. No findings of hardware failure or hardware loosening are seen. Soft tissues: No suspicious soft tissue calcifications or masses. IMPRESSION: No displaced fractures are seen. If there is point tenderness (or other clinical suspicion for a fracture not seen on these images) then a dedicated CT could be considered for further evaluation, as clinically appropriate. Dictated by: Elfego Collazo M.D. on 08/19/2019 at 15:50 Approved by: Elfego Collazo M.D. on 08/19/2019 at 15:51
--- NOTE | 2019-08-19 16:19 | DI.RAD.S_ITS ---
PROCEDURE: XR HIP W PEL IF DONE LT 2V INDICATIONS: hip pain sp fall TECHNIQUE: AP pelvis with lateral view(s) of the left hip(s). COMPARISON: None. FINDINGS: Bones: No fractures or dislocations. Pelvic ring appears intact. No suspicious bony lesions. Left hip arthroplasty hardware can be seen, without findings of failure or loosening. Soft tissues: The visualized bowel gas pattern is normal. No suspicious soft tissue calcifications. IMPRESSION: No displaced fractures are seen on these plain films. If there is focal tenderness, or other clinical concern for a fracture not seen on these images in this patient with a given history of trauma, please consider a dedicated CT or a short-term followup plain film series (in 1-2 weeks) for further evaluation. Unremarkable left hip arthroplasty hardware. Dictated by: Elfego Collazo M.D. on 08/19/2019 at 15:51 Approved by: Elfego Collazo M.D. on 08/19/2019 at 15:52
[2019-08-19] MEDS: OXYCODONE/ACETAMINOPHEN 5/325 TABLET 1 TAB PO (17:19)
[2019-08-19] MEDS: LIDOCAINE PATCH 1 EACH ADH..PATCH TOP (17:20)
--- NOTE | 2019-08-19 17:23 | ED_ITS ---
HPI - Extremity Injury (Lower) <Erlinda Tucker, CARDIOVASCULAR RADIOLOGIC TECHNOLOGIST-BC - Last Filed: 08/19/19 19:40> General Chief Complaint: Extremity Injury, Lower Stated Complaint: possible fx hip Time Seen by Provider: 08/19/19 16:12 Source: family Mode of arrival: Wheelchair Limitations: no limitations History of Present Illness HPI Narrative: The patient is a 74-year-old female nonsmoker with history of empyema and Parkinson's disease who presents with her for chief complaint of left hip pain. Patient's states that the patient tried to get out of a wheelchair by herself, which she is not supposed to do and fell landing on her left hip. She has history of a hip replacement on that side. Patient denies hitting her head or any neck pain or back pain. She states that all of her pain is in her hip. She states she does ?landed on it.Thus patient and declined any imaging other than that of her left hip and leg. She has not taken anything at home for pain. Happened just prior to arrival. Related Data Home Medications Medication Instructions Recorded Confirmed donepezil [Aricept] 10 mg PO QDAY #0 05/05/12 07/21/19 aspirin 81 mg tablet,delayed 81 mg PO DAILY 01/14/18 07/21/19 release ketoconazole 2 % topical cream 1 applictn TOP .PRN #30 gram 01/14/19 07/21/19 venlafaxine 75 mg capsule,extended 75 mg PO DAILY #90 cap 01/14/19 07/21/19 release 24 hr clonazepam 0.5 mg tablet 1.5 mg PO BEDTIME #90 tab 03/10/19 07/21/19 lorazepam 1 mg tablet See Rx Instructions PO DAILY PRN 03/10/19 07/21/19 tab trihexyphenidyl 2 mg tablet 4 mg PO DAILY tab 03/10/19 07/21/19 carbidopa 10 mg-levodopa 100 mg 5 tab PO 0900,1200,1500 PRN tab 06/03/19 07/21/19 tablet Previous Rx's Medication Instructions Recorded albuterol sulfate [Ventolin HFA] 1 - 2 puff INH Q4HP PRN #1 ea 07/11/16 Disabled Parking #1 each 01/08/18 metoprolol succinate 25 mg 25 mg PO DAILY #90 tab 10/30/18 tablet,extended release 24 hr fluticasone 250 mcg-salmeterol 50 2 each INHALATION BID #60 dose 03/10/19 mcg/dose blistr powdr for inhalation oxycodone-acetaminophen 5 mg-325 1 tab PO Q4HP PRN #90 tab 06/03/19 mg tablet lidocaine 1 patch TOP DAILY #15 each 08/19/19 Allergies Allergy/AdvReac Type Severity Reaction Status Date / Time levofloxacin Allergy Severe Hives, Verified 08/19/19 16:21 Water Blisters, Small Fever fentanyl Allergy Unknown Verified 08/19/19 16:21 hydromorphone Allergy Unknown Verified 08/19/19 16:21 Penicillins Allergy Unknown Verified 08/19/19 16:21 Review of Systems <DICK Meza - Last Filed: 08/19/19 19:40> Review of Systems Narrative: GENERAL: Denies chills, fatigue, malaise, fever, sweats. HEENT: Denies sinus pain, ear pain, sore throat, difficulty swallowing, dizziness. RESPIRATORY: Denies dyspnea, cough, wheezing, hemoptysis, sputum. CARDIOVASCULAR: Denies chest pain, palpitations, orthopnea, edema, GASTROINTESTINAL: Denies nausea, vomiting, abdominal pain, diarrhea, constipation, melena. : Denies dysuria, frequency, incontinence, hematuria, urinary retention. MUSCULOSKELETAL: See HPI SKIN: Denies rash, skin lesions, or other NEUROLOGIC: Denies weakness, headache, numbness, change in speech, confusion, seizures, incoordination. PSYCHIATRIC: No concerning psychosocial issues. 12 point review of systems is negative except for those stated above Patient History <DICK Meza - Last Filed: 08/19/19 19:40> Social History Smoking Status: Never smoker Smoking Status: Never smoker Substance Use Type: does not use Exam <FRANCE Meza - Last Filed: 08/19/19 19:40> Narrative Exam Narrative: GENERAL: This is a well-nourished, well-developed patient, appears uncomfortable HEAD: Atraumatic. Normocephalic. No temporal or scalp tenderness. EYES: Pupils equal round and reactive. Extraocular motions intact. No scleral icterus. No injection or drainage. ENT: Nose without bleeding, purulent drainage or septal hematoma. Throat without erythema, tonsillar hypertrophy or exudate. Uvula midline. Airway patent. NECK: Trachea midline. No JVD or lymphadenopathy. Supple, nontender, no meningeal signs. CARDIOVASCULAR: Regular rate and rhythm RESPIRATORY: Clear to auscultation. Breath sounds equal bilaterally. No wheezes, rales, or rhonchi. No cough. No increased respiratory effort. No accessory muscle use. GASTROINTESTINAL: Abdomen soft, non-tender, nondistended. No hepato- splenomegaly, or palpable masses. No guarding. EXTREMITIES: Generalized pain to palpation of left hip. Positive pedal pulses bilaterally. Pelvis is stable to rock palpation. Full range of motion noted left knee. BACK: Nontender without deformity or crepitance. No flank tenderness. No pain to CT or L-spine palpation. NEURO: Alert, interactive, baseline of her SKIN: Ecchymosis noted over lateral aspect left hip. Initial Vital Signs Initial Vital Signs: Vital Signs Temperature 97.8 F 08/19/19 16:10 Pulse Rate 77 08/19/19 16:10 Respiratory Rate 13 08/19/19 16:10 Blood Pressure 137/62 08/19/19 16:10 Pulse Oximetry 90 L 08/19/19 16:10 <Erlinda Sanchez DO - Last Filed: 08/19/19 20:16> Initial Vital Signs Initial Vital Signs: Vital Signs Temperature 97.8 F 08/19/19 16:10 Pulse Rate 77 08/19/19 16:10 Respiratory Rate 13 08/19/19 16:10 Blood Pressure 137/62 08/19/19 16:10 Pulse Oximetry 90 L 08/19/19 16:10 Course <BRODY Meza-BC - Last Filed: 08/19/19 19:40> Orders Ordered: ED Orders 08/19/19 16:19 XR femur LT min 2V Stat XR hip w pel if done LT 2V Stat 08/19/19 17:52 CT pelvis wo con Stat Discontinued Medications Lidocaine (Lidoderm) 1 each TOP NOW ONE Stop: 08/19/19 16:56 Last Admin: 08/19/19 17:20 Dose: 1 each Documented by: MICHELET Oxycodone/Acetaminophen (Percocet 5/325) 1 tab PO NOW ONE Stop: 08/19/19 17:04 Last Admin: 08/19/19 17:19 Dose: 1 tab Documented by: MICHELET Vital Signs Vital signs: Vital Signs - 8 hr 08/19/19 16:10 08/19/19 19:23 Temperature 97.8 F Pulse Rate 77 72 Respiratory Rate 13 12 Blood Pressure 137/62 Blood Pressure [Left Arm] 132/68 Pulse Oximetry 90 L 98 <Erlinda Sanchez DO - Last Filed: 08/19/19 20:16> Orders Ordered: ED Orders 08/19/19 16:19 XR femur LT min 2V Stat XR hip w pel if done LT 2V Stat 08/19/19 17:52 CT pelvis wo con Stat Discontinued Medications Lidocaine (Lidoderm) 1 each TOP NOW ONE Stop: 08/19/19 16:56 Last Admin: 08/19/19 17:20 Dose: 1 each Documented by: MICHELET Oxycodone/Acetaminophen (Percocet 5/325) 1 tab PO NOW ONE Stop: 08/19/19 17:04 Last Admin: 08/19/19 17:19 Dose: 1 tab Documented by: MICHELET Vital Signs Vital signs: Vital Signs - 8 hr 08/19/19 16:10 08/19/19 19:23 Temperature 97.8 F Pulse Rate 77 72 Respiratory Rate 13 12 Blood Pressure 137/62 Blood Pressure [Left Arm] 132/68 Pulse Oximetry 90 L 98 MDM - Extremity Injury (Lower) <FRANCE Meza - Last Filed: 08/19/19 19:40> Imaging Data Hip x-ray: Radiologist's Impression: [address] [place] [address] XRay Report Signed Patient: Elise Villalta [facility]#: [id number] : 6Acct:[id number] Age/Sex: 74 / FDate of Service: 08/19/19 Loc: ED Accession Number: [id number] Procedure: XR hip w pel if done LT 2V Ordering Provider: Erlinda Tucker PROCEDURE: XR HIP W PEL IF DONE LT 2V INDICATIONS: hip pain sp fall TECHNIQUE: AP pelvis with lateral view(s) of the left hip(s). COMPARISON: None. FINDINGS: Bones: No fractures or dislocations. Pelvic ring appears intact. No suspicious bony lesions. Left hip arthroplasty hardware can be seen, without findings of failure or loosening. Soft tissues: The visualized bowel gas pattern is normal. No suspicious soft tissue calcifications. IMPRESSION: No displaced fractures are seen on these plain films. If there is focal tenderness, or other clinical concern for a fracture not seen on these images in this patient with a given history of trauma, please consider a dedicated CT or a short-term followup plain film series (in 1-2 weeks) for further evaluation. Unremarkable left hip arthroplasty hardware. Dictated by: Elfego Collazo M.D. on 08/19/2019 at 15:51 Approved by: Elfego Collazo M.D. on 08/19/2019 at 15:52 Femur x-ray: Radiologist's Impression: [address] [place] [id number] XRay Report Signed Patient: Elise Villalta [facility]#: [id number] : 6Acct:[id number] Age/Sex: 74 / FDate of Service: 08/19/19 Loc: ED Accession Number: [id number] Procedure: XR femur LT min 2V Ordering Provider: Erlinda Tucker- PROCEDURE: XR FEMUR LT MIN 2V INDICATIONS: pain sp fall TECHNIQUE: 2 views of the femur were acquired. [facility] IF DONE LT 2V, 08/19/2019, 16:16. FINDINGS: Bones: No fractures or dislocations. No suspicious bony lesions. Left hip arthroplasty hardware is seen. No findings of hardware failure or hardware loosening are seen. Soft tissues: No suspicious soft tissue calcifications or masses. IMPRESSION: No displaced fractures are seen. If there is point tenderness (or other clinical suspicion for a fracture not seen on these images) then a dedicated CT could be considered for further evaluation, as clinically appropriate. Dictated by: Elfego Collazo M.D. on 08/19/2019 at 15:50 Approved by: Elfego Collazo M.D. on 08/19/2019 at 15:[address]: Radiologist's Impression: [address] [address] [address] Scan Report Signed Patient: Elise Villalta [facility]#: [id number] : 6Acct:[id number] Age/Sex: 74 / FDate of Service: 08/19/19 Loc: ED Accession Number: [id number] Procedure: CT pelvis wo con Ordering Provider: Erlinda Tucker PROCEDURE: CT PEL WO CON INDICATIONS: left hip pain sp fall, unable to bear weight TECHNIQUE: After the administration of oral contrast, 5 mm thick sections acquired from the iliac crests to the symphysis. 5 mm coronal and sagittal reformats were then performed. For radiation dose reduction, the following was used: automated exposure control, adjustment of mA and/or kV according to patient size. COMPARISON: [facility], CT, ABDOMEN/PELVIS WITH CONTRAST, 09/02/2013, 18:01. [facility], CR, XR HIP W PEL IF DONE LT 2V, 08/19/2019, 16:16. [facility], CR, XR FEMUR LT MIN 2V, 08/19/2019, 16:16. FINDINGS: Image quality: Excellent. Peritoneum and bowel: Bowel loops demonstrate normal wall thickness and caliber. No free fluid or air. There is increased on the colon. Genitourinary: Bladder wall thickness is normal. Nodes and vessels: No iliac, pelvic, or inguinal adenopathy by size criteria. Iliac vessels demonstrate normal size. Bones: No suspicious bony lesions. Pelvic ring and hip joints appear intact. Mild soft tissue contusion adjacent to the left hip, (07/19). Left hip arthroplasty is in the expected position. No periprosthetic lucency demonstrated. No dislocation. There is bilateral joint space narrowing. S2 Tarlov cyst, slightly increased compared to 2013. Miscellaneous: No inguinal hernias. IMPRESSION: Exam is somewhat limited due to beam hardening artifact from the left hip arthroplasty. 1. No fracture or dislocation. 2. Mild soft tissue contusion adjacent to the left hip. Dictated by: Floyd Chavez M.D. on 08/19/2019 at 18:56 Approved by: Floyd Chavez M.D. on 08/19/2019 at 19:02 MDM Narrative Medical decision making narrative: The patient is a 74-year-old female who presents with her after ground level fall onto her hip. Initial x-rays are negative, patient still a difficulty weight-bearing so CT was obtained. This was also negative. She felt improved after pain medications. Patient has been repeatedly declined further imaging of neck head etcetera. She is neurovascularly intact for lower extremities. I discussed at length rest ice compression elevation, following up with primary care provider in the next few days. = is very comfortable taking her home request to go home to discharge. Patient and have no questions or concerns upon discharge and state understanding return precautions as well as follow-up care. Discharge Plan Departure Patient Disposition: Home Clinical Impression: Contusion of hip Qualifiers: Encounter type: initial encounter Laterality: left Qualified Code(s): S70.02XA - Contusion of left hip, initial encounter Fall Qualifiers: Encounter type: initial encounter Qualified Code(s): W19.XXXA - Unspecified fall, initial encounter Hip pain Qualifiers: Laterality: left Qualified Code(s): M25.552 - Pain in left hip Discharge Date/Time: 08/19/19 19:34 Instructions: Help for Hip Pain, DI for Contusion, How To Perform RICE (Rest, Ice, Compress, Elevate), DI for Hip Pain Activity Restrictions/Additional Instructions: Thank you for trusting us with your care today. Your x-rays and CT scan came back with no acute fracture. I sent a prescription of [facility] patch [facility] Please use ice for the 1st 72 hours Please come back to emergency department for any acute concerns Please follow-up with primary care provider in the next few days. Prescriptions: New lidocaine 5 % adhesive patch,medicated 1 patch TOP DAILY Qty: 15 RF: 0 No Action aspirin [Adult Aspirin Regimen] 81 mg tablet,delayed release (DR/EC) 81 mg PO DAILY RF: 0 donepezil [Aricept] 10 MG tablet 10 mg PO QDAY Qty: 0 RF: 0 albuterol sulfate [Ventolin HFA] 90 MCG/PUFF HFA aerosol inhaler 1 - 2 puff INH Q4HP PRNQty: 1 RF: 11 (DME) Disabled Parking Qty: 1 RF: 0 metoprolol succinate 25 mg tablet extended release 24 hr 25 mg PO DAILY Qty: 90 RF: 3 lorazepam 1 mg tablet See Rx Instructions PO DAILY PRN (Reason: agitation) RF: 0 fluticasone propion-salmeterol [Advair Diskus] 250-50 mcg/dose blister with device 2 each inhalation BID Qty: 60 RF: 3 trihexyphenidyl 2 mg tablet 4 mg PO DAILY RF: 0 clonazepam 0.5 mg tablet 1.5 mg PO BEDTIME Qty: 90 RF: 0 venlafaxine 75 mg capsule,extended release 24hr 75 mg PO DAILY Qty: 90 RF: 0 ketoconazole 2 % cream 1 applictn TOP .PRN Qty: 30 RF: 0 carbidopa-levodopa 10-100 mg tablet 5 tab PO 0900,1200,1500 PRN (Reason: muscle spasm) RF: 0 oxycodone-acetaminophen [Percocet] 5-325 mg tablet 1 tab PO Q4HP PRN (Reason: pain) Qty: 90 RF: 0 Referrals: Hudson Mcmanus MD [Primary Care Provider] -
--- NOTE | 2019-08-19 17:52 | DI.CT.S_ITS ---
PROCEDURE: CT PEL WO CON INDICATIONS: left hip pain sp fall, unable to bear weight TECHNIQUE: After the administration of oral contrast, 5 mm thick sections acquired from the iliac crests to the symphysis. 5 mm coronal and sagittal reformats were then performed. For radiation dose reduction, the following was used: automated exposure control, adjustment of mA and/or kV according to patient size. COMPARISON: [facility], CT, ABDOMEN/PELVIS WITH CONTRAST, 09/02/2013, 18:01. [facility], CR, XR HIP W PEL IF DONE LT 2V, 08/19/2019, 16:16. [facility], CR, XR FEMUR LT MIN 2V, 08/19/2019, 16:16. FINDINGS: Image quality: Excellent. Peritoneum and bowel: Bowel loops demonstrate normal wall thickness and caliber. No free fluid or air. There is increased on the colon. Genitourinary: Bladder wall thickness is normal. Nodes and vessels: No iliac, pelvic, or inguinal adenopathy by size criteria. Iliac vessels demonstrate normal size. Bones: No suspicious bony lesions. Pelvic ring and hip joints appear intact. Mild soft tissue contusion adjacent to the left hip, (07/19). Left hip arthroplasty is in the expected position. No periprosthetic lucency demonstrated. No dislocation. There is bilateral joint space narrowing. S2 Tarlov cyst, slightly increased compared to 2013. Miscellaneous: No inguinal hernias. IMPRESSION: Exam is somewhat limited due to beam hardening artifact from the left hip arthroplasty. 1. No fracture or dislocation. 2. Mild soft tissue contusion adjacent to the left hip. Dictated by: Floyd Chavez M.D. on 08/19/2019 at 18:56 Approved by: Floyd Chavez M.D. on 08/19/2019 at 19:02
[2019-08-19 19:23] VITALS: BP 132/68; PULSE 72; RESP 12; O2SAT 98
== END 2019-08-19 19:34 | disposition home or self-care (01) ==
PROVIDERS: Emergency Provider Nurse Practitioner Family; PCP Internal Medicine
DX: S70.02XA Contusion of left hip, initial encounter (principal); M25.552 Pain in left hip; W19.XXXA Unspecified fall, initial encounter
CPT/HCPCS: 72192; 73502; 73552; 99284; 99285

== ENCOUNTER → 2019-08-30 14:16 | Outpatient (CLI) | payer MEDICARE, SELFPAY ==
[2019-08-30 15:35] LABS: Add Manual Diff / Slide Review NO; Basophils Absolute Auto 100 /uL (0-100); Basophils Percent Auto 0.9 % (0-2); Eosinophils Absolute Auto 500 /uL (0-450); Eosinophils Percent Auto 7.3 % (2-4); Hematocrit 29.6 % (36-46); Hemoglobin 9.6 g/dL (12.0-16.0); Lymphocytes Absolute Auto 1500 /uL (1100-4500); Lymphocytes Percent Auto 24.3 % (25-40); Mean Corpuscular HGB Conc 32.3 % (30-36); Mean Corpuscular Hemoglobin 29.7 PG (26-34); Mean Corpuscular Volume 91.9 fL (80-100); Monocytes Absolute Auto 300 /uL (0-900); Monocytes Percent Auto 4.3 % (3-14); Neutrophils Absolute Auto 4000 /uL (1500-7000); Neutrophils Percent Auto 63.2 % (50-75); Platelet Count 300 X10^3/uL (150-400); Red Blood Cell Count 3.22 X10^6/uL (4.0-5.2); Red Cell Distribution Width 15.9 % (11.6-14.8); White Blood Cell Count 6.3 X10^3/uL (4.5-11.0)
[2019-08-30 15:55] LABS: Erythrocyte Sedimentation Rate 41 MM/HR (0-20)
[2019-08-30 16:07] LABS: Albumin 3.8 g/dL (3.5-5.0); Albumin Globulin Ratio 1.1 (1.0-2.8); Alkaline Phosphatase 115 U/L (38-126); Aspartate Aminotransferase 22 IU/L (14-36); BUN Creatinine Ratio 29.1 (6-22); Bilirubin Total 0.5 mg/dL (0.2-1.3); Blood Urea Nitrogen 23 mg/dL (7-17); C-Reactive Protein Quant 3.8 mg/dL (<1.0); Carbon Dioxide 26 mmol/L (22-32); Chloride 104 mmol/L (98-107); Estimated Glomerular Filt Rate > 60.0 mL/min (>60); Globulin 3.5 g/dL (1.7-4.1); Glucose 122 mg/dL (80-110); HEMOLYSIS < 15 (0-50); Potassium 4.4 mmol/L (3.4-5.1); Sodium 138 mmol/L (137-145); Total Protein 7.3 g/dL (6.3-8.2)
[2019-08-30 16:46] LABS: Alanine Aminotransferase < 4 IU/L (<35)
== END ==
PROVIDERS: PCP Internal Medicine; Referring Provider Internal Medicine; Visit Provider Internal Medicine
DX: D64.9 Anemia, unspecified (principal); G20 Parkinson's disease; J45.20 Mild intermittent asthma, uncomplicated; J86.9 Pyothorax without fistula; R13.19 Other dysphagia
CPT/HCPCS: 36415; 80053; 85025; 85651; 86140

== ENCOUNTER 2020-01-26 17:30 | Emergency (ER) | payer MEDICARE, SELFPAY ==
[2020-01-26] VITALS (17 sets, daily range): BP systolic 150–173; BP diastolic 67–74; PULSE 68–78; RESP 15–34; TEMP 36.5–36.8; O2SAT 93–97
--- NOTE | 2020-01-26 17:40 | DI.RAD.S_ITS ---
PROCEDURE: XR CHEST 2V INDICATIONS: shortness of breath TECHNIQUE: 2 views of the chest were acquired. COMPARISON: [facility], , XR CHEST 1V, 05/03/2018, 20:16. FINDINGS: Surgical changes and devices: Bilateral neural stimulators are redemonstrated. Lungs and pleura: Right basilar pulmonary scarring is unchanged from the 2018 plain film. No acute airspace opacities. No pleural effusion or pneumothorax. Mediastinum: Mediastinal contours are normal. Heart size is enlarged, as before. Bones and chest wall: No suspicious bony abnormalities. Soft tissues appear unremarkable. IMPRESSION: Stable cardiomegaly. No acute pulmonary findings. Dictated by: Shameka Aparicio M.D. on 01/26/2020 at 18:13 Approved by: Shameka Aparicio M.D. on 01/26/2020 at 18:14
[2020-01-26 18:04] LABS: Add Manual Diff / Slide Review NO; Basophils Absolute Auto 0 /uL (0-100); Basophils Percent Auto 0.6 % (0-2); Eosinophils Absolute Auto 200 /uL (0-450); Eosinophils Percent Auto 3.2 % (2-4); Hematocrit 33.7 % (36-46); Hemoglobin 11.3 g/dL (12.0-16.0); Lymphocytes Absolute Auto 1900 /uL (1100-4500); Lymphocytes Percent Auto 31.7 % (25-40); Mean Corpuscular HGB Conc 33.6 % (30-36); Mean Corpuscular Hemoglobin 30.4 PG (26-34); Mean Corpuscular Volume 90.3 fL (80-100); Monocytes Absolute Auto 300 /uL (0-900); Monocytes Percent Auto 4.5 % (3-14); Neutrophils Absolute Auto 3700 /uL (1500-7000); Platelet Count 166 X10^3/uL (150-400); Red Blood Cell Count 3.73 X10^6/uL (4.0-5.2); Red Cell Distribution Width 16.3 % (11.6-14.8); White Blood Cell Count 6.1 X10^3/uL (4.5-11.0)
[2020-01-26 18:15] LABS: Lactate (Lactic Acid) 1.3 mmol/L (0.7-2.1)
[2020-01-26 18:16] LABS: Alanine Aminotransferase 4 IU/L (<35); Albumin Globulin Ratio 1.3 (1.0-2.8); Alkaline Phosphatase 68 U/L (38-126); Aspartate Aminotransferase 21 IU/L (14-36); Bilirubin Total 0.4 mg/dL (0.2-1.3); Blood Urea Nitrogen 20 mg/dL (7-17); Calcium 8.8 mg/dL (8.4-10.2); Carbon Dioxide 27 mmol/L (22-32); Chloride 105 mmol/L (98-107); Estimated Glomerular Filt Rate > 60.0 mL/min (>60); Globulin 3.2 g/dL (1.7-4.1); Glucose 137 mg/dL (80-110); HEMOLYSIS < 15 (0-50); Sodium 138 mmol/L (137-145); Total Protein 7.2 g/dL (6.3-8.2)
--- NOTE | 2020-01-26 18:17 | ED.SOB ---
HPI - SOB/Dyspnea General Chief Complaint: Shortness of Breath/Dyspnea Stated Complaint: states needs pneumonia check Time Seen by Provider: 01/26/20 18:09 Source: patient and family Mode of arrival: Ambulatory Limitations: no limitations History of Present Illness HPI Narrative: 74F non-smoker with a history of parkinsons, aspiration pneumonia, and asthma presents with her in the chief complaint of fever with some faint crackles in her lung bases since yesterday. She has a history of aspiration pneumonia and last time they waited too long so he wanted to be seen early this time around. She has had no headache, runny nose, sore throat. She has had a small amount of cough but this is not her primary complaint. She has no nausea, vomiting or diarrhea. She denies abdominal pain but has had frequent urination and dysuria. She denies a known aspiration event. She denies exposure to persons known or to be suspicious of COVID-19 MD Complaint: shortness of breath Onset (ago): day(s) Severity: mild Consistency/Duration: intermittent Relieving factors: nothing Exacerbating factors: nothing Known history of: asthma Associated symptoms: fever Related Data Home Medications Medication Instructions Recorded Confirmed donepezil [Aricept] 10 mg PO QDAY #0 05/05/12 12/06/19 aspirin 81 mg tablet,delayed 81 mg PO DAILY 01/14/18 12/06/19 release ketoconazole 2 % topical cream 1 applictn TOP .PRN #30 gram 01/14/19 12/06/19 venlafaxine 75 mg capsule,extended 75 mg PO DAILY #90 cap 01/14/19 12/06/19 release 24 hr clonazepam 0.5 mg tablet 1.5 mg PO BEDTIME #90 tab 03/10/19 12/06/19 lorazepam 1 mg tablet See Rx Instructions PO DAILY PRN 03/10/19 12/06/19 tab trihexyphenidyl 2 mg tablet 4 mg PO DAILY tab 03/10/19 12/06/19 carbidopa 10 mg-levodopa 100 mg 5 tab PO 0900,1200,1500 PRN tab 06/03/19 12/06/19 tablet Previous Rx's Medication Instructions Recorded albuterol sulfate [Ventolin HFA] 1 - 2 puff INH Q4HP PRN #1 ea 07/11/16 Disabled Parking #1 each 01/08/18 fluticasone 250 mcg-salmeterol 50 1 inhalation INHALATION BID #60 08/23/19 mcg/dose blistr powdr for each inhalation metoprolol succinate 25 mg 25 mg PO DAILY #90 tab 11/11/19 tablet,extended release 24 hr oxycodone-acetaminophen 5 mg-325 1 tab PO Q4HP PRN #90 tab 01/06/20 mg tablet doxycycline hyclate 100 mg PO BID #20 tab 01/26/20 Allergies Allergy/AdvReac Type Severity Reaction Status Date / Time levofloxacin Allergy Severe Hives, Verified 12/06/19 11:15 Water Blisters, Small Fever fentanyl Allergy Unknown Verified 12/06/19 11:15 hydromorphone Allergy Unknown Verified 12/06/19 11:15 Penicillins Allergy Unknown Verified 12/06/19 11:15 Review of Systems Constitutional Constitutional: Denies chills, Denies fatigue, Reports fever(s), Denies frequent falls, Denies lethargy and Denies weakness Eyes Eyes: Denies change in vision, Denies eye discharge, Denies irritation and Denies loss of vision ENT Ears, Nose, Mouth, and Throat: Denies change in voice, Denies dizziness, Denies neck pain, Denies sore throat and Denies throat swelling Cardiovascular Cardiovascular: Denies chest pain, Denies irregular heart rhythm, Denies lightheadedness, Denies palpitations, Reports dyspnea, Denies dyspnea on exertion and Denies orthopnea Respiratory Respiratory: Denies cough, Reports dyspnea, Denies dyspnea on exertion and Denies wheezing Gastrointestinal Gastrointestinal: Denies abdominal pain, Denies change in bowel habits, Denies diarrhea, Denies nausea and Denies vomiting Genitourinary Genitourinary: Reports dysuria and Reports nocturia Genitourinary: Reports difficulty voiding, Reports dysuria and Reports nocturia Musculoskeletal Musculoskeletal: Denies neck pain and Denies numbness Integumentary/Breasts Skin/Breast: Denies pruritus, Denies erythema, Denies rash and Denies wounds Neurologic Neurologic: Denies behavioral changes, Denies confusion, Denies dizziness, Denies frequent falls, Denies loss of vision, Denies numbness and Denies weakness Psychiatric Psychiatric: Denies anxiety, Denies behavioral changes, Denies confusion, Denies depression, Denies homicidal ideation and Denies suicidal ideation Endocrine Endocrine: Denies fatigue, Denies flushing and Denies palpitations Hematologic/Lymphatic Hematologic/Lymphatic: Denies easy bruising Allergic/Immunologic Allergic/Immunologic: Denies urticaria, Denies throat swelling and Denies wheezing Patient History Medical History Aspiration, chronic pulmonary (Chronic) Dysphagia, neurologic (Chronic) Mild intermittent asthma without complication (Chronic 01/18/11) Osteoporosis (Chronic 01/18/11) Parkinson's disease (Chronic 01/18/11) Surgical History History of surgery (Resolved) Status post hysterectomy with oophorectomy Social History Smoking Status: Never smoker Smoking Status: Never smoker Substance Use Type: does not use Exam Narrative Exam Narrative: GENERAL: [74] year old patient appears stated age. Well-nourished, well-developed patient, in mild distress. Chronically ill HEAD: Atraumatic. Normocephalic. EYES: Pupils equal round and reactive. Extraocular motions intact. No scleral icterus. No injection or drainage. ENT: Nose without bleeding, purulent drainage. Throat without erythema, tonsillar hypertrophy or exudate. Airway patent. NECK: Trachea midline. Non tender CARDIOVASCULAR: Regular rate and rhythm without murmurs, gallops, or rubs. RESPIRATORY: Crackles in bilateral bases, no significant work of breathing GASTROINTESTINAL: Abdomen soft, non-tender, nondistended. EXTREMITIES: No edema or joint tenderness. BACK: Nontender without deformity or crepitance. No flank tenderness. NEURO: At her baseline per SKIN: No rash or erythema of visible areas Initial Vital Signs Initial Vital Signs: Vital Signs Temperature 98.2 F 01/26/20 17:38 Pulse Rate 78 01/26/20 17:38 Respiratory Rate 22 01/26/20 17:38 Blood Pressure 150/67 H 01/26/20 17:38 Pulse Oximetry 96 01/26/20 17:38 Course Orders Ordered: ED Orders 01/26/20 17:40 XR chest 2V Stat RT Consult Eval and Treat Now 01/26/20 17:49 Complete Blood Count AUTO DIFF Stat Comprehensive Metabolic Panel Stat Lactate (Lactic Acid) Stat Procalcitonin Stat 01/26/20 18:08 Blood Culture Stat 01/26/20 18:31 EKG-12 Lead Stat 01/26/20 20:13 Urine Culture Stat Urine Microscopic Stat Discontinued Medications Doxycycline Hyclate (Vibramycin) 100 mg PO NOW ONE Stop: 01/26/20 20:53 Last Admin: 01/26/20 20:58 Dose: 100 mg Documented by: ENMA Sodium Chloride (Normal Saline 0.9%) 500 mls @ 1,000 mls/hr IV BOLUS ONE Stop: 01/26/20 20:00 Last Infusion: 01/26/20 20:27 Dose: 0 mls/hr Documented by: Admin: 01/26/20 19:32 Dose: 1,000 mls/hr Documented by: ENMA Vital Signs Vital signs: Vital Signs - 8 hr 01/26/20 17:38 01/26/20 18:08 01/26/20 18:13 Temperature 98.2 F Pulse Rate 78 76 74 Respiratory Rate 22 22 Blood Pressure 150/67 H 158/68 H Pulse Oximetry 96 94 01/26/20 18:15 01/26/20 18:30 01/26/20 18:45 Temperature Pulse Rate 72 75 71 Respiratory Rate 21 22 19 Blood Pressure Pulse Oximetry 95 96 93 01/26/20 19:01 01/26/20 19:02 01/26/20 19:15 Temperature Pulse Rate 76 72 72 Respiratory Rate 21 20 Blood Pressure 165/70 H Pulse Oximetry 95 96 95 01/26/20 19:30 01/26/20 19:45 01/26/20 20:00 Temperature Pulse Rate 72 73 76 Respiratory Rate 15 18 21 Blood Pressure 158/69 H 171/74 H Pulse Oximetry 94 97 97 01/26/20 20:15 01/26/20 20:30 01/26/20 20:45 Temperature Pulse Rate 73 71 68 Respiratory Rate 21 28 H Blood Pressure 154/67 H Pulse Oximetry 97 96 96 01/26/20 20:58 01/26/20 21:00 Temperature 97.7 F Pulse Rate 74 77 Respiratory Rate 34 H 30 H Blood Pressure 173/73 H Pulse Oximetry 96 97 MDM - SOB/Dyspnea Lab Data Result diagrams: 01/26/20 17:49 01/26/20 17:49 Labs: Lab Results 01/26/20 01/26/20 01/26/20 Range/Units 17:49 17:49 17:49 WBC 6.1 (4.5-11.0) X10^3/uL RBC 3.73 L (4.0-5.2) X10^6/uL Hgb 11.3 L (12.0-16.0) g/dL Hct 33.7 L (36-46) % MCV 90.3 (80-100) fL MCH 30.4 (26-34) PG MCHC 33.6 (30-36) % RDW 16.3 H (11.6-14.8) % Plt Count 166 (150-400) X10^3/uL Neut % (Auto) 60.0 (50-75) % Lymph % (Auto) 31.7 (25-40) % [place] % (Auto) 4.5 (3-14) % Eos % (Auto) 3.2 (2-4) % Baso % (Auto) 0.6 (0-2) % Neut # (Auto) 3700 (6297-4139) /uL Lymph # (Auto) 1900 (6227-8396) /uL [place] # (Auto) 300 (0-900) /uL Eos # (Auto) 200 (0-450) /uL Baso # (Auto) 0 (0-100) /uL Sodium 138 (137-145) mmol/L Potassium 4.0 (3.4-5.1) mmol/L Chloride 105 (98-107) mmol/L Carbon Dioxide 27 (22-32) mmol/L BUN 20 H (7-17) mg/dL Creatinine 0.77 (0.52-1.04) mg/dL Estimated GFR > 60.0 (>60) mL/min BUN/Creatinine Ratio 26.0 H (6-22) Glucose 137 H (80-110) mg/dL Lactate 1.3 (0.7-2.1) mmol/L Calcium 8.8 (8.4-10.2) mg/dL Total Bilirubin 0.4 (0.2-1.3) mg/dL AST 21 (14-36) IU/L ALT 4 (<35) IU/L Alkaline Phosphatase 68 (38-126) U/L Total Protein 7.2 (6.3-8.2) g/dL Albumin 4.0 (3.5-5.0) g/dL Globulin 3.2 (1.7-4.1) g/dL Albumin/Globulin Ratio 1.3 (1.0-2.8) Procalcitonin (<0.5) ng/mL Urine RBC (0-5/HPF) Urine WBC (0-5/HPF) Ur Squamous Epith Cells (0-5/HPF) Urine Bacteria (None) Ur Culture Indicated? 01/26/20 01/26/20 Range/Units 17:49 20:13 WBC (4.5-11.0) X10^3/uL RBC (4.0-5.2) X10^6/uL Hgb (12.0-16.0) g/dL Hct (36-46) % MCV (80-100) fL MCH (26-34) PG MCHC (30-36) % RDW (11.6-14.8) % Plt Count (150-400) X10^3/uL Neut % (Auto) (50-75) % Lymph % (Auto) (25-40) % [place] % (Auto) (3-14) % Eos % (Auto) (2-4) % Baso % (Auto) (0-2) % Neut # (Auto) (8765-9215) /uL Lymph # (Auto) (1738-0942) /uL [place] # (Auto) (0-900) /uL Eos # (Auto) (0-450) /uL Baso # (Auto) (0-100) /uL Sodium (137-145) mmol/L Potassium (3.4-5.1) mmol/L Chloride (98-107) mmol/L Carbon Dioxide (22-32) mmol/L BUN (7-17) mg/dL Creatinine (0.52-1.04) mg/dL Estimated GFR (>60) mL/min BUN/Creatinine Ratio (6-22) Glucose (80-110) mg/dL Lactate (0.7-2.1) mmol/L Calcium (8.4-10.2) mg/dL Total Bilirubin (0.2-1.3) mg/dL AST (14-36) IU/L ALT (<35) IU/L Alkaline Phosphatase (38-126) U/L Total Protein (6.3-8.2) g/dL Albumin (3.5-5.0) g/dL Globulin (1.7-4.1) g/dL Albumin/Globulin Ratio (1.0-2.8) Procalcitonin < 0.05 (<0.5) ng/mL Urine RBC 0-1/hpf (0-5/HPF) Urine WBC 5-10/hpf H (0-5/HPF) Ur Squamous Epith Cells 0-1 /hpf (0-5/HPF) Urine Bacteria Moderate (10-30) H (None) Ur Culture Indicated? Specimen cultured Urine Dip Bedside Urine Glucose Negative Bedside Urine Bilirubin - Negative Bedside Urine Ketone - Negative Urine Specific [place] 1.010 Bedside Urine Occult Blood +/- Bedside Urine pH 6.0 Bedside Urine Protein - Negative Bedside Urine Urobilinogen - Negative Bedside Urine Nitrite - Negative Bedside Urine Leukocytes + 70 Esterase Imaging Data Chest x-ray: Radiologist's Impression: Elise Villalta 74 F [address] [address] XRay Report Signed Patient: Elise Villalta [facility]#: [id number] : 1945cct:[id number] Age/Sex: 74 / FDate of Service: 01/26/20 Loc: ED Accession Number: [id number] Procedure: XR chest 2V Ordering Provider: Jessica Simon D.O. PROCEDURE: XR CHEST 2V INDICATIONS: shortness of breath TECHNIQUE: 2 views of the chest were acquired. COMPARISON: [facility], , XR CHEST 1V, 05/03/2018, 20:16. FINDINGS: Surgical changes and devices: Bilateral neural stimulators are redemonstrated. Lungs and pleura: Right basilar pulmonary scarring is unchanged from the 2018 plain film. No acute airspace opacities. No pleural effusion or pneumothorax. Mediastinum: Mediastinal contours are normal. Heart size is enlarged, as before. Bones and chest wall: No suspicious bony abnormalities. Soft tissues appear unremarkable. IMPRESSION: Stable cardiomegaly. No acute pulmonary findings. Dictated by: Shameka Aparicio M.D. on 01/26/2020 at 18:13 Approved by: Shameka Aparicio M.D. on 01/26/2020 at 18:14 MDM Narrative Medical decision making narrative: Patient shows no signs of respiratory distress and no signs of sepsis. She has stable vitals and requires no supplemental oxygen. She does have some crackles in her bases and could have an early atypical or aspiration pneumonia. Also patient with complaints consistent with UTI and lab showing mild UTI. ABX ordered for this reason. Return precautions given to patient and , they are in agreement and have full understanding of the plan. Questions answered to their apparent satisfaction Discharge Plan Departure Patient Disposition: Home Clinical Impression: Acute UTI, Atypical pneumonia Discharge Date/Time: 01/26/20 21:15 Instructions: DI for Urinary Tract Infection (UTI), DI for Atypical Pneumonia Activity Restrictions/Additional Instructions: *You have been diagnosed with [ UTIi and possible early atypical pneumonia ] *What to do: *Take medications as directed: Prescription sent to [facility] *Follow up with your primary care provider in 2-3 days, call for an appointment. Let them know you were seen in the Emergency Department and that we ask that you be seen in follow up *Return to ER if you should have any new, worsening or concerning symptoms Prescriptions: New doxycycline hyclate 100 mg tablet 100 mg PO BID Qty: 20 RF: 0 No Action aspirin [Adult Aspirin Regimen] 81 mg tablet,delayed release (DR/EC) 81 mg PO DAILY RF: 0 donepezil [Aricept] 10 MG tablet 10 mg PO QDAY Qty: 0 RF: 0 albuterol sulfate [Ventolin HFA] 90 MCG/PUFF HFA aerosol inhaler 1 - 2 puff INH Q4HP PRNQty: 1 RF: 11 (DME) Disabled Parking Qty: 1 RF: 0 lorazepam 1 mg tablet See Rx Instructions PO DAILY PRN (Reason: agitation) RF: 0 trihexyphenidyl 2 mg tablet 4 mg PO DAILY RF: 0 clonazepam 0.5 mg tablet 1.5 mg PO BEDTIME Qty: 90 RF: 0 fluticasone propion-salmeterol [Wixela Inhub] 250-50 mcg/dose blister with device 1 inhalation INHALATION BID Qty: 60 RF: 6 metoprolol succinate 25 mg tablet extended release 24 hr 25 mg PO DAILY Qty: 90 RF: 3 venlafaxine 75 mg capsule,extended release 24hr 75 mg PO DAILY Qty: 90 RF: 0 ketoconazole 2 % cream 1 applictn TOP .PRN Qty: 30 RF: 0 carbidopa-levodopa 10-100 mg tablet 5 tab PO 0900,1200,1500 PRN (Reason: muscle spasm) RF: 0 oxycodone-acetaminophen [Percocet] 5-325 mg tablet 1 tab PO Q4HP PRN (Reason: pain) Qty: 90 RF: 0 Referrals: Hudson Mcmanus MD [Primary Care Provider] -
[2020-01-26 19:23] LABS: Procalcitonin < 0.05 ng/mL (<0.5)
[2020-01-26] MEDS: SODIUM CHLORIDE 0.9% 500 ML 1000 ML IV (19:32)
--- NOTE | 2020-01-26 20:16 | PC.NURSE ---
Pt assisted to [facility] with . Pericare performed prior to urine catch. POCT performed and urine sent to lab for Micro
[2020-01-26 20:37] LABS: Bacteria Urine Moderate (10-30); Culture Indicated Urine Specimen Cultured; RBC Urine 0-1/HPF (0-5/HPF); Squamous Epithelial Cell Urine 0-1 /HPF (0-5/HPF); WBC Urine 5-10/HPF (0-5/HPF)
[2020-01-26] MEDS: DOXYCYCLINE HYCLATE 100 MG TABLET PO (20:58)
== END 2020-01-26 21:15 | disposition home or self-care (01) ==
PROVIDERS: Emergency Medicine; Emergency Provider Emergency Medicine; PCP Internal Medicine
DX: J18.9 Pneumonia, unspecified organism (principal); N39.0 Urinary tract infection, site not specified; R50.9 Fever, unspecified; R30.0 Dysuria
CPT/HCPCS: 36415; 71046; 80053; 81003; 81015; 83605; 84145; 85025; 87040; 87077; 87086; 87186; 93005; 96360; 99284

== ENCOUNTER → 2020-08-09 12:34 | Outpatient (CLI) | payer MEDICARE, SELFPAY ==
[2020-08-09] MEDS: COVID-19 VACC #1, MRNA(MOD) 100 MCG/0.5 ML VIAL IM (12:52)
== END ==
PROVIDERS: PCP Internal Medicine; Visit Provider Internal Medicine
DX: Z23 Encounter for immunization (principal)
CPT/HCPCS: 0011A; 91301

== ENCOUNTER → 2020-09-06 10:46 | Outpatient (CLI) | payer MEDICARE, SELFPAY ==
[2020-09-06] MEDS: COVID-19 VACC #2, MRNA(MOD) 100 MCG/0.5 ML VIAL IM (10:57)
== END ==
PROVIDERS: PCP Internal Medicine; Visit Provider Internal Medicine
DX: Z23 Encounter for immunization (principal)
CPT/HCPCS: 0012A; 91301

== ENCOUNTER 2020-10-03 13:30 | Outpatient (RCR) | payer MEDICARE, SELFPAY ==
--- NOTE | 2020-04-04 16:32 | ST.OPIE ---
Visit Care Team Role Provider Type Hudson Mcmanus MD Attending Provider Physician Primary Care Provider Referring Provider Specialty: Internal Medicine Address: [address] [place] [address], [address], [address] Email: [email or web address] Speech-Language Pathology Initial Evaluation LINE PERSON Clinical Swallow Evaluation Start: 04/04/20 12:29 Freq: Status: Active Protocol: Document 04/04/20 15:50 GEOVANNI (Rec: 04/04/20 16:27 GEOVANNI [email or web address]) Clinical Swallow Evaluation Session Time Visit Start Time 12:30 Visit Stop Time 13:30 Total Visit Minutes 60 Visit Information Visit Number Initial Evaluation Plan of Care Dates 04/04/20 - 07/05/20 Insurance Information Medicare Referral Referring Provider Dr. Hudson Mcmanus Reason for Referral Parkinson's disease Setting Assessment Location Outpatient Care Visit Type Note Type Initial evaluation Next Note Type Next Note Type Treatment Note Patient Information Identification Type Name,ID Card History The pt is a 75-yr-old female with long history of Parkinson 's disease. She is familiar to the clinician from previous dysphagia and voice therapy, which ended in May 2019. Per pt/spouse report, the pt acquired aspiration pneumonia shortly after therapy ended and was hospitalized for ~3 wks. She was seen by HH following hospital d/c, and this ended within the last 2 wks. HH therapy primarily targeted increasing the pt's vocal loudness and improving speech intelligibility. Per pt /spouse report, the pt continues with dysphagia symptoms, notably experiencing increased coughing with most sugary foods, which she now avoids. She drinks all liquids from straw to increase independence in feeding. Subjective Observations The pt arrived on time accompanied by her , Oh, who was present for most of the session. He excused himself after initial interview and case history so that the pt would speak for herself and be less reliant on him. The couple provided case history supplemental to medical records and expressed desires to improve swallow safety and speech intelligibility. Reported by Patient Other Symptoms Coughing,Drooling,History of aspiration or pneumonia Current Diet Dysphagia advanced,Chopped, Thin liquids Baseline Feeding Method Independent in self-feeding Patient Questionnaire No Objective Assessment Mental Status Alert,Responsive,Cooperative Oral Integrity WFL,Excessive saliva/Drooling Dentition Within normal limits,Upper dentures/partials,Adequate denture or partial fitting Lip Function Moderate impairment Observation of Lips at Rest Symmetrical Pucker Reduced range of motion, Reduced strength Lip Retraction Within normal limits Alternating Pucker/Lip Retraction Reduced range of motion Tongue Protrusion Deviates to the right Tongue Lateralization Reduced strength Jaw Function Within normal limits Observations of Jaw at Rest Within normal limits Jaw Opening Within normal limits Jaw Closing Within normal limits Jaw Lateralization Within normal limits Hard/Soft Palate Function Within normal limits Observations of Hard/Soft Palate Abnormal color Nasality Within normal limits Phonation Breathy,Reduced loudness Respiratory Sufficiency Moderate impairment Comment Light colored spot observed at left faucial pillar as soft palate elevated with phonation . All oral movements were slow. Food and Liquid Trials Position During Assessment Upright (90 degrees) Liquids Trialed Thin,[place] Solids Trialed Puree,Regular Administration Type Controlled cup sip,Straw,Self- feeding Oral Impairment Moderately impaired Oral Phase Comments Reduced strength and/or ROM of oral musculature results in slow movements and response times. Rapid bolus transport and swallow trigger likely d/t reduced lingual strength and control. Suspect early spillage to pharynx prior to onset of swallow trigger. No oral residue was observed with pureed texture; mild residue with holley cracker, which mostly cleared with liquid wash. The pt's spouse reported frequent pocketing of solids, which will be monitored with future oral trials. The pt created sufficient lip seal around straw and maintained opening of straw anteriorly in oral cavity for adequate control. The pt declined trials of diced peaches, anticipating that the would be hard to manage. She consumed dry holley cracker with slow but otherwise normal mastication. She used lingual sweep and a spoon to clear residue that stuck to her teeth. Pharyngeal Impairment Moderately impaired Pharyngeal Phase Comments The pt exhibited delayed wet coughing with consecutive sips of thin and nectar-thick liquids. Suspect penetration of pharyngeal residue after swallow and/or aspiration during swallow that led to the delayed response. Cough response was weak but effective. The pt occasionally expelled mucous, brownish in color, likely consisting of holley cracker. No overt s/sx of aspiration were observed with thin liquids and NTL when taken in single sips, or with holley cracker. Most swallows , particularly with liquids, were loudly audible, indicating reduced pharyngeal coordination. Fatigue/Endurance Endurance WNL Comment The pt exhibited normal endurance with minimal trials, which might not be consistent with endurance at meals. Pt swallowed 3 small pills together with thin liquid in consecutive sips. Delayed cough followed, as described above. Findings Swallowing Function Oropharyngeal phase dysphagia Severity of Swallow Impairment Moderately impaired Contributing Factors to Swallow Reduced oral strength/ Impairment coordination/sensation, Mastication inefficiency, Impaired oral-pharyngeal transport,Reduced laryngeal excursion,Impaired airway protection Comments Suspect delayed swallow initiation and excessive pharyngeal residue Prognosis Fair Based on Age,History of aspiration/ aspiration pneumonia, Comorbidities,Duration of symptoms/severity Comment Positive prognostic factors include cognitive status and family support. Impact on Safety and Functioning Risk for aspiration,Risk for inadequate nutrition/hydration Recommendations Instrumental Assessment No Swallowing Treatment Yes Frequency 1x/wk in conjunction with voice therapy Duration for 12 wks Recommended Solids Chopped Recommended Liquids Thin Other Recommendations Single liquid sips only Safety Precautions/Swallowing 1 to 1 distant supervision, Recommendations Feed only when alert,Reduce distractions,Remain upright ( 90 degrees) during all oral intake,Needs verbal cues to use recommended strategies, Upright position at least 30 minutes after meals,Small bites and sips when eating, Slow rate; swallow between bites,Sip by straw only,Set-up assistance,Family assistance/ supervision,Strict oral care after intake,Check for pocketing Medication Recommendations As Tolerated Discharge Recommendations Home Comments Family support and assistance Education Patient/Caregiver Education Described results of evaluation,Patient expressed understanding of evaluation, Patient expressed agreement with goals & treatment plans, Family/caregivers expressed understanding of evaluation, Family/caregivers expressed agreement with goals & treatment plans,Patient expressed understanding of safety precautions,Patient expressed understanding of feeding recommendations,Family /caregivers expressed understanding of safety precautions,Family/caregivers expressed understanding of feeding recommendations Goals Short-term Goals 1. The pt will follow safe swallow strategies with minimal cuing to reduce risk of aspiration. 2. The pt will perform oral motor and swallow exercises with min cues to improve/ maintain oral integrity for bolus prep, swallow and speech intelligibility. 3. The pt will participate in evaluation of voice and speech intelligiblity to guide POC. Additional goals to be developed pending results. Long-term Goals 1. The pt will comply with daily HEP with min-mod assistance and reminders in order to improve swallow and communication skills. 2. The pt will tolerate least restrictive diet to meet her nutrition and hydration needs.
--- NOTE | 2020-04-11 16:59 | ST.OPIE ---
Visit Care Team Role Provider Type Hudson Mcmanus MD Attending Provider Physician Primary Care Provider Referring Provider Specialty: Internal Medicine Address: [address] [place] [address], [address], [place], [address] Email: [email or web address] TELEPHONE DIRECTORY DELIVERER Voice Resonance Evaluation Start: 04/04/20 12:29 Freq: Status: Active Protocol: Document 04/11/20 16:29 GEOVANNI (Rec: 04/11/20 16:59 GEOVANNI [email or web address]) Voice and Resonance Assessment Session Time Visit Start Time 14:30 Visit Stop Time 15:20 Total Visit Minutes 50 Visit Information Visit Number 1 Next Note Type Next Note Type Treatment Note Referral Referring Physician Dr. Hudson Mcmanus Reason for Referral Parkinson's disease Setting Setting Outpatient Care Hearing Hearing Level Normal Vision Vision Status Not Impaired [place] Langauge Language(s) Spoken in the Home [employer] Occupational Status Occupation Status Retired Previous Therapy Previous Speech-Language Therapy Yes History of Previous Therapy Outpatient therapy with this clinician and recent HH, both targeting dysphagia and increasing vocal loudness Oral Motor Assessment Source: [employer] ([employer]HIANNA). Oral-Motor Eval Completed No Oral-Motor Assessment Assessment made at last session. See Clinical Bedside Swallow Evaluation report. Subjective Subjective The pt arrived on time accompanied by her who was present for the first 10 min of the session and provided case history additional to what the pt provided. The pt reported completing HEP tasks provided by HH TELEPHONE DIRECTORY DELIVERER only 1 day per week. After discussion of importance of regular home practice (recommended 5 days/ wk), the pt agreed that she could increase home practice and agreed that keeping an exercise log and bringing it to therapy would help to motivate her. - Laryngeal Performance Voice Handicap Index VHI Comments Pt known to be severely impacted. Not administered to avoid discouragement CAPE-V Overall Severity 92% Severe Roughness 51% Moderate Breathiness 87% Severe Strain 74% Severe Pitch 87% Severe (Reduced, pitch breaks) Loudness 92% Severe (Reduced) Normal Resonance? Yes Additional Features Aphonia,Pitch Instability, Tremor,Wet/Gurgly Maximum Phonation Time MPT Norms: Women (15-25) Men (25-35) Loudness (50-60 dB); Speaking Rate: Oral Reading of Sentences (190 Words Per Minute); Oral Reading of Paragraphs (160-170 WPM); Speaking Rate in Conversation (150-250 WPM) Maximum Phonation Time 13 s on /i/ Maximum Phonation Time Reduced,Unstable Tone,Unstable Pitch,Unstable Loudness Maximum Phonation Time Comments MPT on /a/ = 7 sec. Pt reports /a/ to be very difficult to produced. Pitch [place] Pitch [place] Pitch Breaks,Reduced Range, Cessation of Voicing Pitch [place] Comments 250-371 Hz Breath Support Breath Support Conversation Comment Overall breathing is very shallow; stimulable to diaphragmatic breath Speaks on Room Air Yes Postural Alignment Comments Wheelchair bound. Adequate posture in wheelchair. Voice Pitch Range Norms: Women (100-300 Hz) Men (70-250 Hz) Fundamental Frequency Norms: Women (Mean: 225 Hz; Range: 155-334 Hz) Men ( Mean: 128 Hz; Range: 85-196 Hz) Paradoxical Vocal Fold Movement No Indications Resonance Nasal Resonance Normal Oral Resonance Normal Other Observations Inadequate Breath Support Therapeutic Techniques Therapy Tactics Breath Support,Increase Loudness Other Tactics Pt benefitted by wrapping hands around rib cage and exerting abdominal muscles on exhalation to increase power of voice and decrease laryngeal tension. Findings Findings Severe Impairment Voice/Resonance Assessment Assessment The pt presents with severe dysphonia secondary to Parkinson's disease and characterized by low loudness levels, frequent episodes of aphonia, pitch breaks, limited range and instability. The pt often defaults to speaking in whispers. With prompts, the pt is able to produce voice more frequently than she does independently. She was responsive to education RE the breath as the power of the voice and training in diaphragmatic breathing to shift vocal effort from the larynx to the respiratory muscles of exhalation. This yielded increased loudness and duration of phonation as well as clarity. The pt's voice was frequently wet sounding, improved with throat clearing + swallow. This is secondary to the pt's dysphagia diagnosis also resulting from Parkinson's disease. Prognosis Rehabilitation Potential Fair - Recommendations Treatment Recommended Yes Treatment Frequency/Duration 1x/wk for 3-4 mos Placement Recommendation Home,Outpatient Therapy Therapy Recommendations Exercises of voice and respiratory muscles Short Term Goals 1. The pt will sustain /i/ for 15 sec with clear voicing at avg loudness of 60 dB or greater. 2. The pt will perform pitch glide exercises with continuous voicing to increase pitch range and reduce monotone voice. 3. The pt will read sentences of moderate length with continuous voicing and an avg of 60 dB or greater in 80% of opportunities to increase speech intelligibility and ability to communicate effectively. 4. The pt will read sentences structured to vary inflection with 80% acc to increase suprasegmentals of speech and increase speech intelligibility. Safety Pin Assembling Machine Operator Goals 1. The pt will read short paragraphs with continuous voicing and an avg of 60 dB or greater in 80% of opportunities to increase speech intelligibility and ability to communicate effectively. 2. The pt will produce speech at 60 dB or greater in short conversations (~5 min) in 70% of opportunities to increase speech intelligibility and ability to communicate effectively. Patient/Caregiver Education Patient/Family Education Described results of evaluation,Patient Understanding,Family Understanding,Patient Demonstration,Patient Needs More Info
--- NOTE | 2020-04-18 17:32 | ST.OPTN ---
Visit Care Team Role Provider Type Hudson Mcmanus MD Attending Provider Physician Primary Care Provider Referring Provider Address: [address] [place] [address], [address], [place], [address] ITEM PROCESSOR Treatment Note ITEM PROCESSOR Treatment Note Start: 04/04/20 12:29 Freq: Status: Active Protocol: Document 04/18/20 17:18 GEOVANNI (Rec: 04/18/20 17:29 GEOVANNI [email or web address]) Speech Pathology Treatment Note Session Time Visit Start Time 15:30 Visit Stop Time 14:20 Total Visit Minutes 50 Visit Information Visit Number 2 Plan of Care Dates 04/04/20 - 07/05/20 Insurance Information Medicare Setting Treatment Setting Outpatient Care Visit Type Note Type Treatment Note Next Note Type Next Note Type Treatment Note General Information General Information The pt is a 75-yr-old female with long history of Parkinson 's disease. She is familiar to the clinician from previous dysphagia and voice therapy, which ended in May 2019. Per pt/spouse report, the pt acquired aspiration pneumonia shortly after therapy ended and was hospitalized for ~3 wks. She was seen by HH following hospital d/c, and this ended within the last 2 wks. HH therapy primarily targeted increasing the pt's vocal loudness and improving speech intelligibility. Per pt /spouse report, the pt continues with dysphagia symptoms, notably experiencing increased coughing with most sugary foods, which she now avoids. She drinks all liquids from straw to increase independence in feeding. Subjective Others Present Family Observations/Patient Presentation The pt arrived on time accompanied by her who was present during part of the session. She reported feeling that swallowing is getting harder and she is unable to eat rice and cauliflower as a result. She noted no changes in swallow of liquids. Chief Complaint(s) Speech,Swallowing,Voice Objective Short Term Goals Dysphagia: 1. The pt will follow safe swallow strategies with minimal cuing to reduce risk of aspiration. 2. The pt will perform oral motor and swallow exercises with min cues to improve/ maintain oral integrity for bolus prep, swallow and speech intelligibility. 3. The pt will participate in evaluation of voice and speech intelligiblity to guide POC. Additional goals to be developed pending results. Voice: 1. The pt will sustain /i/ for 15 sec with clear voicing at avg loudness of 60 dB or greater. 2. The pt will perform pitch glide exercises with continuous voicing to increase pitch range and reduce monotone voice. 3. The pt will read sentences of moderate length with continuous voicing and an avg of 60 dB or greater in 80% of opportunities to increase speech intelligibility and ability to communicate effectively. 4. The pt will read sentences structured to vary inflection with 80% acc to increase suprasegmentals of speech and increase speech intelligibility. Retirement Goals Dysphagia: 1. The pt will comply with daily HEP with min-mod assistance and reminders in order to improve swallow and communication skills. 2. The pt will tolerate least restrictive diet to meet her nutrition and hydration needs. Voice: 1. The pt will read short paragraphs with continuous voicing and an avg of 60 dB or greater in 80% of opportunities to increase speech intelligibility and ability to communicate effectively. 2. The pt will produce speech at 60 dB or greater in short conversations (~5 min) in 70% of opportunities to increase speech intelligibility and ability to communicate effectively. Treatment Activities Trained pt in swallow exercises targeting laryngeal elevation/excursion for increased airway protection. Attempted a variety of intra- oral pressure and blowing through occluded vocal tract exercises. The pt was most receptive to productions of /p / with enough power of breath upon release to cause movement of a tissue in front of her mouth and to lip smacking strategy to increase intra- oral pressure and strengthen lip seal. The pt performed sustained phonation tasks with significant nasality and poor vocal quality. Adjusted task for pt to name vowels and count on single breaths with increased loudness and continuous voicing. Vocal quality was significantly improved in these tasks, indicating improved breath support. The pt performed pitch glide exercises with minimal pitch range and reduced vocal quality. She read functional phrases and explained to the ITEM PROCESSOR what her Thanksgiving plans were, both with continual voicing and loudness that was sufficient for speech intelligibility. HEP tasks were modified to reflect added swallow/oral motor exercises. Assessment Patient Response to Treatment Fair Rehab Potential Fair Impairments Identified Dysphagia,Parkinson's Disease, Speech Intelligibility,Vocal Quality Progress Towards Goals Slow Progress Assessment of Overall Progress Improving Assessment of Improvement With verbal prompting, the pt is able to produce voicing with sufficient loudness for continuous voicing and to be heard and understood in a quiet environment. Hyolaryngeal elevation was minimal but present with intra -oral pressure exercises, and pt was able to produce lip seal around a straw. She continues to require mod-max prompts to increase loudness. She was compliant with HEP over the week, as demonstrated by completed exercise log and pt/spouse report, which improves her likelihood of benefiting from skilled intervention.
--- NOTE | 2020-04-25 15:21 | ST.OPTN ---
Visit Care Team Role Provider Type Hudson Mcmanus MD Attending Provider Physician Primary Care Provider Referring Provider Address: [address] [place] [address], [address], [place], [address] PUNCHBOARD STUFFER Treatment Note PUNCHBOARD STUFFER Treatment Note Start: 04/04/20 12:29 Freq: Status: Active Protocol: Document 04/25/20 15:08 GEOVANNI (Rec: 04/25/20 15:21 GEOVANNI [email or web address]) Speech Pathology Treatment Note Session Time Visit Start Time 15:30 Visit Stop Time 14:15 Total Visit Minutes 45 Visit Information Visit Number 3 Plan of Care Dates 04/04/20 - 07/05/20 Insurance Information Medicare Setting Treatment Setting Outpatient Care Visit Type Note Type Treatment Note Next Note Type Next Note Type Treatment Note General Information General Information The pt is a 75-yr-old female with long history of Parkinson 's disease. She is familiar to the clinician from previous dysphagia and voice therapy, which ended in May 2019. Per pt/spouse report, the pt acquired aspiration pneumonia shortly after therapy ended and was hospitalized for ~3 wks. She was seen by HH following hospital d/c, and this ended within the last 2 wks. HH therapy primarily targeted increasing the pt's vocal loudness and improving speech intelligibility. Per pt /spouse report, the pt continues with dysphagia symptoms, notably experiencing increased coughing with most sugary foods, which she now avoids. She drinks all liquids from straw to increase independence in feeding. Subjective Others Present Family Observations/Patient Presentation The pt arrived on time accompanied by her who was present during the session. The pt completed HEP tasks at least 3 times over the last week. She reported decline in consistency d/t the and a busier schedule. Chief Complaint(s) Speech,Swallowing,Voice Objective Short Term Goals Dysphagia: 1. The pt will follow safe swallow strategies with minimal cuing to reduce risk of aspiration. 2. The pt will perform oral motor and swallow exercises with min cues to improve/ maintain oral integrity for bolus prep, swallow and speech intelligibility. 3. The pt will participate in evaluation of voice and speech intelligiblity to guide POC. Additional goals to be developed pending results. Voice: 1. The pt will sustain /i/ for 15 sec with clear voicing at avg loudness of 60 dB or greater. 2. The pt will perform pitch glide exercises with continuous voicing to increase pitch range and reduce monotone voice. 3. The pt will read sentences of moderate length with continuous voicing and an avg of 60 dB or greater in 80% of opportunities to increase speech intelligibility and ability to communicate effectively. 4. The pt will read sentences structured to vary inflection with 80% acc to increase suprasegmentals of speech and increase speech intelligibility. College Intern Goals Dysphagia: 1. The pt will comply with daily HEP with min-mod assistance and reminders in order to improve swallow and communication skills. 2. The pt will tolerate least restrictive diet to meet her nutrition and hydration needs. Voice: 1. The pt will read short paragraphs with continuous voicing and an avg of 60 dB or greater in 80% of opportunities to increase speech intelligibility and ability to communicate effectively. 2. The pt will produce speech at 60 dB or greater in short conversations (~5 min) in 70% of opportunities to increase speech intelligibility and ability to communicate effectively. Treatment Activities The pt completed vocal loudness and speech intelligibility tasks with direct guidance from clinician . Tasks included deep breathing exercises with biofeedback (hands on lower ribcage), sustained phonation (MPT = 5 sec with continuous voicing), counting to 5 with continuous voicing, pitch range exercises, reading functional phrases, and reading short phrases. In functional phrases, the pt occasionally lost voice at the ends of longer sentences. Instructed pt in intonation targets with emphasis on the last words. Using this strategy, as well as taking a sufficient breath before each statement, intelligibility improved. Recordings were made of the pt's reading of functional phrases and played back as feedback. The pt acknowledged that she could be louder, and then did improve loudness in most of the subsequent trials. During pitch range exercises, the pt exhibited aphonia frequently with minimal changes in pitch. The clinician demonstrated a simple song from [employer] which involved alternating between a single low and single high pitch on vowels /i / and /o/. The pt sang this song enthusiastically with significantly increased loudness. Finally, during reading of short phrases, the pt read phrases, which were unfamiliar to her . Her repeated the phrases when he adequately heard and understood them, and asked for repetition when he did not. In this task, the pt was 74% acc based on her 's understanding. Assessment Patient Response to Treatment Fair Rehab Potential Fair Impairments Identified Dysphagia,Parkinson's Disease, Speech Intelligibility,Vocal Quality Progress Towards Goals Slow Progress Assessment of Overall Progress Improving Assessment of Improvement The pt was responsive to a variety of strategies to improve her breath support, loudness, speech intelligibility and voice production at varying pitches. She continues to require mod- max cues but does demonstrate ability to be loud enough to be heard and understood for short conversational exchages (up to 6-7 words at a time). She is improving with consistency of home practice, although some disruption occurred this week d/t the hol. Reviewed with Patient Goals,Progress Being Made,Home Exercise Program Patient/Caregiver Understanding Good Plan Frequency of Treatment Once a Week Length of Session 45 Minutes Therapeutic Contents Client Education,Expressive Language Training,Home Exercise Program, Intelligibility,Voice Training Provided Patient/Caregiver Instruction Home Exercise Program,Plan of Care,Questions/Concerns Therapy Recommendations Continue with Current Program
--- NOTE | 2020-05-03 10:48 | ST.OPTN ---
Visit Care Team Role Provider Type Hudson Mcmanus MD Attending Provider Physician Primary Care Provider Referring Provider Address: [address] [place] [address], [address], [place], [address] CNC PROGRAMMER Treatment Note CNC PROGRAMMER Treatment Note Start: 04/04/20 12:29 Freq: Status: Active Protocol: Document 05/02/20 17:40 GEOVANNI (Rec: 05/02/20 17:40 [email or web address]) Speech Pathology Treatment Note Session Time Visit Start Time 12:30 Visit Stop Time 13:15 Total Visit Minutes 45 Visit Information Visit Number 4 Plan of Care Dates 04/04/20 - 07/05/20 Insurance Information Medicare Setting Treatment Setting Outpatient Care Visit Type Note Type Treatment Note Next Note Type Next Note Type Treatment Note General Information General Information The pt is a 75-yr-old female with long history of Parkinson 's disease. She is familiar to the clinician from previous dysphagia and voice therapy, which ended in May 2019. Per pt/spouse report, the pt acquired aspiration pneumonia shortly after therapy ended and was hospitalized for ~3 wks. She was seen by following hospital d/c, and this ended within the last 2 wks. HH therapy primarily targeted increasing the pt's vocal loudness and improving speech intelligibility. Per pt /spouse report, the pt continues with dysphagia symptoms, notably experiencing increased coughing with most sugary foods, which she now avoids. She drinks all liquids from straw to increase independence in feeding. Subjective Others Present Family Observations/Patient Presentation The pt arrived on time accompanied by her who was present during the session. She reported improved consistency with HEP this week, making it part of her morning routine. Chief Complaint(s) Speech,Swallowing,Voice Patient Knowledge/Awareness of CNC PROGRAMMER Role Excellent in Treatment Parent/Caretake Knowledge/Awareness of Excellent CNC PROGRAMMER Role in Treatment Patient/Caregiver Compliance with Home Good Exercise Program Objective Short Term Goals Dysphagia: 1. The pt will follow safe swallow strategies with minimal cuing to reduce risk of aspiration. 2. The pt will perform oral motor and swallow exercises with min cues to improve/ maintain oral integrity for bolus prep, swallow and speech intelligibility. 3. The pt will participate in evaluation of voice and speech intelligiblity to guide POC. Additional goals to be developed pending results. Voice: 1. The pt will sustain /i/ for 15 sec with clear voicing at avg loudness of 60 dB or greater. 2. The pt will perform pitch glide exercises with continuous voicing to increase pitch range and reduce monotone voice. 3. The pt will read sentences of moderate length with continuous voicing and an avg of 60 dB or greater in 80% of opportunities to increase speech intelligibility and ability to communicate effectively. 4. The pt will read sentences structured to vary inflection with 80% acc to increase suprasegmentals of speech and increase speech intelligibility. Truck Switcher Goals Dysphagia: 1. The pt will comply with daily HEP with min-mod assistance and reminders in order to improve swallow and communication skills. 2. The pt will tolerate least restrictive diet to meet her nutrition and hydration needs. Voice: 1. The pt will read short paragraphs with continuous voicing and an avg of 60 dB or greater in 80% of opportunities to increase speech intelligibility and ability to communicate effectively. 2. The pt will produce speech at 60 dB or greater in short conversations (~5 min) in 70% of opportunities to increase speech intelligibility and ability to communicate effectively. Treatment Activities At start of session, the pt participated in conversation of ~5-8 min about her cat. She produced minimal breaks in voice production and was perceived to speak at ~60 dB. She was more animated during this conversation than in other conversations, indicating benefit from conversation topics that are meaningful to her. Occ prompts from & CNC PROGRAMMER were given for the pt to clear her throat when her voicing became wet and gurgly, which occurred frequently. During these times, the pt produced volitional cough that was stronger than this CNC PROGRAMMER has previously heard. Coughing sounded productive, but the pt was unable to expel saliva/ mucous from throat. Her noted that her saliva is very thick and, when asked, reported the pt does not consume much water throughout the day d/t concerns of incontinence. Skilled feedback /education was provided RE importance of hydration for general wellness but particularly to reduce viscosity of phlegm/saliva for better management and safety, as well as for voice production. Recommended the pt consider hydrating foods in addition to liquids. The pt verbalized understanding but did not commit to increasing hydration. The pt also commented that she forgets to be loud at home and relies on her to remind her. Discussed attempting to increase the pt' s independence and self- monitoring via written reminders in her home to be loud and clear her throat as needed. The pt initially responded that her provides that support but became agreeable after discussions related to increasing independence. Four written notes were made for the pt to post around her home . The pt completed vocal loudness and speech intelligibility tasks with direct guidance from clinician . Tasks included deep breathing exercises with biofeedback (hands on lower ribcage), sustained phonation (MPT = 3 sec with continuous voicing), counting to 5 with continuous voicing, pitch range exercises, and reading functional phrases. During functional phrase reading, the pt produced continuous voicing with exception of one word; however, speech articulation was unclear. Trained the pt in using big mouth movements as if your conversation partner were deaf and reading your lips. Given direct models, the pt repeated sentences with improved articulatory precision and speech intelligibility. Mod-max cues were required. Vocal loudness levels with all structured tasks were below 60 dB. At end of session, the pt consumed thin liquid by cup in consecutive sips x2. No coughing occurred during swallow but did occur immediately after both sips. Again, the pt exhibited improved cough strength. Assessment Patient Response to Treatment Fair Rehab Potential Fair Impairments Identified Dysphagia,Parkinson's Disease, Speech Intelligibility,Vocal Quality Progress Towards Goals Slow Progress Assessment of Overall Progress Improving Assessment of Improvement The pt exhibited stronger cough and increased continuous voicing today. The pt's PT, Harriet, informed this CNC PROGRAMMER that she is working on increasing core strength with the pt. It appears efforts between both PT and ST disciplines is beneficial to the pt's respiratory strength for cough and voice production . The pt continues with decreased vocal loudness and speech intelligibility secondary to dysarthria. She was responsive to training in big mouth movements to improve articulatory precision ; needs reinforcement. The pt was also receptive to use of written reminders in her home environment to assist her in remembering to use her voice and clear her throat when wet/gurgly. Reviewed with Patient Goals,Progress Being Made,Home Exercise Program Patient/Caregiver Understanding Good Plan Frequency of Treatment Once a Week Length of Session 45 Minutes Therapeutic Contents Client Education,Expressive Language Training,Home Exercise Program, Intelligibility,Voice Training Provided Patient/Caregiver Instruction Home Exercise Program,Plan of Care,Questions/Concerns Therapy Recommendations Continue with Current Program
--- NOTE | 2020-05-09 16:29 | ST.OPTN ---
Visit Care Team Role Provider Type Hudson Mcmanus MD Attending Provider Physician Primary Care Provider Referring Provider Address: [address] [place] [address], [address], [place], [address] ENVIRONMENTAL EMERGENCIES ASSISTANT Treatment Note ENVIRONMENTAL EMERGENCIES ASSISTANT Treatment Note Start: 04/04/20 12:29 Freq: Status: Active Protocol: Document 05/09/20 15:51 GEOVANNI (Rec: 05/09/20 16:29 [email or web address]) Speech Pathology Treatment Note Session Time Visit Start Time 12:30 Visit Stop Time 13:20 Total Visit Minutes 50 Visit Information Visit Number 5 Plan of Care Dates 04/04/20 - 07/05/20 Insurance Information Medicare Setting Treatment Setting Outpatient Care Visit Type Note Type Treatment Note Next Note Type Next Note Type Treatment Note General Information General Information The pt is a 75-yr-old female with long history of Parkinson 's disease. She is familiar to the clinician from previous dysphagia and voice therapy, which ended in May 2019. Per pt/spouse report, the pt acquired aspiration pneumonia shortly after therapy ended and was hospitalized for ~3 wks. She was seen by HH following hospital d/c, and this ended within the last 2 wks. HH therapy primarily targeted increasing the pt's vocal loudness and improving speech intelligibility. Per pt /spouse report, the pt continues with dysphagia symptoms, notably experiencing increased coughing with most sugary foods, which she now avoids. She drinks all liquids from straw to increase independence in feeding. Subjective Others Present Family Observations/Patient Presentation The pt arrived on time accompanied by her who was present during the session. She reported continued consistency with HEP . Throughout the session, she c/o mouth pain, which is neurologic and for which she takes pain medication, per report. She also reported feeling very tired and did require verbal prompts to stay awake at start of session. Chief Complaint(s) Speech,Swallowing,Voice Patient Knowledge/Awareness of ENVIRONMENTAL EMERGENCIES ASSISTANT Role Excellent in Treatment Parent/Caretake Knowledge/Awareness of Excellent ENVIRONMENTAL EMERGENCIES ASSISTANT Role in Treatment Patient/Caregiver Compliance with Home Good Exercise Program Objective Short Term Goals Dysphagia: 1. The pt will follow safe swallow strategies with minimal cuing to reduce risk of aspiration. 2. The pt will perform oral motor and swallow exercises with min cues to improve/ maintain oral integrity for bolus prep, swallow and speech intelligibility. 3. The pt will participate in evaluation of voice and speech intelligiblity to guide POC. Additional goals to be developed pending results. Voice: 1. The pt will sustain /i/ for 15 sec with clear voicing at avg loudness of 60 dB or greater. 2. The pt will perform pitch glide exercises with continuous voicing to increase pitch range and reduce monotone voice. 3. The pt will read sentences of moderate length with continuous voicing and an avg of 60 dB or greater in 80% of opportunities to increase speech intelligibility and ability to communicate effectively. 4. The pt will read sentences structured to vary inflection with 80% acc to increase suprasegmentals of speech and increase speech intelligibility. Water Pump Operator Goals Dysphagia: 1. The pt will comply with daily HEP with min-mod assistance and reminders in order to improve swallow and communication skills. 2. The pt will tolerate least restrictive diet to meet her nutrition and hydration needs. Voice: 1. The pt will read short paragraphs with continuous voicing and an avg of 60 dB or greater in 80% of opportunities to increase speech intelligibility and ability to communicate effectively. 2. The pt will produce speech at 60 dB or greater in short conversations (~5 min) in 70% of opportunities to increase speech intelligibility and ability to communicate effectively. Treatment Activities Voice: At start of session, the pt's voice was wet during initial conversations. When prompted to evaluate her voice , the pt first stated that it was not clear, which appeared to be a reference to her speech articulation vs vocal quality. When prompted again, she noted that it sounded wet, and when asked how to fix that, she stated, Cough and swallow which she proceded to do. Cough was productive sounding, although the pt was unable to expel mucus. She swallowed, and her voice after was clear. The pt performed sustained phonation and read functional phrases with biofeedback from voice recordings. With ENVIRONMENTAL EMERGENCIES ASSISTANT/ spouse prompts deep diaphragmatic breathing, she sustained continuous voicing for 11.4s, 19.2s, and 14.2s, significantly longer than any previous trial. She read through her 10 functional phrases and perceived her voice as weak when played back . With prompts to use a big voice and big mouth movements, she read again x4, each with loudness perceived to be at or near low levels of normal conversational levels and improved speech clarity. The pt noted the improvement upon playback. Skilled feedback and encouragement for carryover into conversation was provided and prompted over the remainder of the session (mod- max prompts required). Dysphagia: Oral trials were initially withheld d/t pt somnolence. After voice treatment, the pt was more awake and alert. She consumed 3 single sips of thin liquid, after each of which she produced moderate to strong cough. Suspect residue in pharynx is present as the pt reopens her airway, allowing for penetration/aspiration of residue post swallow. Instructed the pt to take single sips and swallow 1-2 more times as if she was swallowing consecutive sips of water. The pt did this, apparently without opening airway until after the 2nd swallow (water + 1 dry swallow ). She was observed to then take a small breath and swallow again. No cough was present in each of 3 trials with thin liquid and 3 trials of applesauce. The pt commented, No cough. I need to do this all the time which was indeed recommended. Assessment Patient Response to Treatment Good Rehab Potential Fair Impairments Identified Dysphagia,Parkinson's Disease, Speech Intelligibility,Vocal Quality Progress Towards Goals Slow Progress Assessment of Overall Progress Improving Assessment of Improvement The pt again exhibited stronger than typical cough and significantly increased continuous voicing today, indicating improved breath support for voice and cough. She continues with frequently wet vocal quality but was responsive to prompts to self- monitor and correct. The use of big mouth movements and biofeedback from voice recordings appeared to be highly beneficial, resulting in clearer and louder speech. The pt also benefited from use of immediate double swallow with intake of both thin liquids and applesauce, which completely eliminated coughing . Without use of this strategy , the pt has consistently exhibited moderate to strong cough after intake oral intake . This indicates the presence of pharyngeal residue upon completion of single swallow. The pt noted the improvement and expressed intent to use. Her was present and provided appropriate verbal prompts for both voice and swallow strategies. Reviewed with Patient Goals,Progress Being Made,Home Exercise Program Patient/Caregiver Understanding Good Plan Frequency of Treatment Once a Week Length of Session 45 Minutes Therapeutic Contents Client Education,Expressive Language Training,Home Exercise Program, Intelligibility,Voice Training Provided Patient/Caregiver Instruction Home Exercise Program,Plan of Care,Questions/Concerns Therapy Recommendations Continue with Current Program
--- NOTE | 2020-05-16 18:06 | ST.OPTN ---
Visit Care Team Role Provider Type Hudson Mcmanus MD Attending Provider Physician Primary Care Provider Referring Provider Address: [address] [place] [address], [address], [place], [address] WARDROBE IMAGE CONSULTANT Treatment Note WARDROBE IMAGE CONSULTANT Treatment Note Start: 04/04/20 12:29 Freq: Status: Active Protocol: Document 05/16/20 17:54 GEOVANNI (Rec: 05/16/20 18:06 GEOVANNI [email or web address]) Speech Pathology Treatment Note Session Time Visit Start Time 14:30 Visit Stop Time 15:15 Total Visit Minutes 45 Visit Information Visit Number 6 Plan of Care Dates 04/04/20 - 07/05/20 Insurance Information Medicare Setting Treatment Setting Outpatient Care Visit Type Note Type Treatment Note Next Note Type Next Note Type Treatment Note General Information General Information The pt is a 75-yr-old female with long history of Parkinson 's disease. She is familiar to the clinician from previous dysphagia and voice therapy, which ended in May 2019. Per pt/spouse report, the pt acquired aspiration pneumonia shortly after therapy ended and was hospitalized for ~3 wks. She was seen by HH following hospital d/c, and this ended within the last 2 wks. HH therapy primarily targeted increasing the pt's vocal loudness and improving speech intelligibility. Per pt /spouse report, the pt continues with dysphagia symptoms, notably experiencing increased coughing with most sugary foods, which she now avoids. She drinks all liquids from straw to increase independence in feeding. Subjective Others Present Family Observations/Patient Presentation The pt arrived on time accompanied by her who was present only at end of session. Chief Complaint(s) Speech,Swallowing,Voice Patient Knowledge/Awareness of WARDROBE IMAGE CONSULTANT Role Excellent in Treatment Parent/Caretake Knowledge/Awareness of Excellent WARDROBE IMAGE CONSULTANT Role in Treatment Patient/Caregiver Compliance with Home Good Exercise Program Objective Short Term Goals Dysphagia: 1. The pt will follow safe swallow strategies with minimal cuing to reduce risk of aspiration. 2. The pt will perform oral motor and swallow exercises with min cues to improve/ maintain oral integrity for bolus prep, swallow and speech intelligibility. 3. The pt will participate in evaluation of voice and speech intelligiblity to guide POC. Additional goals to be developed pending results. Voice: 1. The pt will sustain /i/ for 15 sec with clear voicing at avg loudness of 60 dB or greater. 2. The pt will perform pitch glide exercises with continuous voicing to increase pitch range and reduce monotone voice. 3. The pt will read sentences of moderate length with continuous voicing and an avg of 60 dB or greater in 80% of opportunities to increase speech intelligibility and ability to communicate effectively. 4. The pt will read sentences structured to vary inflection with 80% acc to increase suprasegmentals of speech and increase speech intelligibility. Fdc Goals Dysphagia: 1. The pt will comply with daily HEP with min-mod assistance and reminders in order to improve swallow and communication skills. 2. The pt will tolerate least restrictive diet to meet her nutrition and hydration needs. Voice: 1. The pt will read short paragraphs with continuous voicing and an avg of 60 dB or greater in 80% of opportunities to increase speech intelligibility and ability to communicate effectively. 2. The pt will produce speech at 60 dB or greater in short conversations (~5 min) in 70% of opportunities to increase speech intelligibility and ability to communicate effectively. Treatment Activities Voice: The pt recalled that when her voice sounds wet, she is to cough to clear. Instructed pt to swallow after cough/throat clearing. Written reminder to monitor voice and clear/swallow as needed was provided as visual aid to increase independence in this and increase airway protections. The pt produced sustained /i/ with continuous voicing up to 12 s, pitch exercises with adequate loudness and continuous voicing. She read functional phrases at target loudness ~90% of the time. Voice recordings were made and played back to pt. The pt stated, I sound drunk. My voice sounds weird. Skilled feedback and encouragement were offered and voice playback discontinued to prevent discouragement. The pt completed picture description and short 1-3 sentence readings (of picture captions) with 75% intelligibility, as measured by WARDROBE IMAGE CONSULTANT repeating what she understood the pt to say. During spontaneous conversation RE a puzzle the pt was working on at home, she was also ~75% intelligible with increased continuous voicing in ~95% of statements. Dysphagia: Pt independently recalled and used mulit- swallow strategy with 4 sips of thin liquid over course of the session. No overt s/sx of aspiration were observed. Assessment Patient Response to Treatment Good Rehab Potential Fair Impairments Identified Dysphagia,Parkinson's Disease, Speech Intelligibility,Vocal Quality Progress Towards Goals Slow Progress Assessment of Overall Progress Improving Assessment of Improvement The pt is producing increased continuous voicing in structured voice and speech tasks. Speech intelligiblity remains impaired secondary to reduced loudness and reduces articulatory precision. When prompted, the pt is able to increase enunciation and loudness in short phrases/ sentences, which significantly improves intelligibility; however, her ability to sustain this for longer than a few sentences is poor. She continues to benefit from use of multiple swallows to increase safety with intake of thin liquids. Reviewed with Patient Goals,Progress Being Made,Home Exercise Program Patient/Caregiver Understanding Good Plan Frequency of Treatment Once a Week Length of Session 45 Minutes Therapeutic Contents Client Education,Expressive Language Training,Home Exercise Program, Intelligibility,Voice Training Provided Patient/Caregiver Instruction Home Exercise Program,Plan of Care,Questions/Concerns Therapy Recommendations Continue with Current Program
--- NOTE | 2020-05-24 16:39 | ST.OPTN ---
Visit Care Team Role Provider Type Hudson Mcmanus MD Attending Provider Physician Primary Care Provider Referring Provider Address: [address] [place] [address], [address], [place], [address] SUBSTANCE ABUSE CLINICIAN Treatment Note SUBSTANCE ABUSE CLINICIAN Treatment Note Start: 04/04/20 12:29 Freq: Status: Active Protocol: Document 05/23/20 18:02 GEOVANNI (Rec: 05/23/20 18:02 GEOVANNI [email or web address]) Speech Pathology Treatment Note Session Time Visit Start Time 12:30 Visit Stop Time 13:15 Total Visit Minutes 45 Visit Information Visit Number 7 Plan of Care Dates 04/04/20 - 07/05/20 Insurance Information Medicare Setting Treatment Setting Outpatient Care Visit Type Note Type Treatment Note Next Note Type Next Note Type Treatment Note General Information General Information The pt is a 75-yr-old female with long history of Parkinson 's disease. She is familiar to the clinician from previous dysphagia and voice therapy, which ended in May 2019. Per pt/spouse report, the pt acquired aspiration pneumonia shortly after therapy ended and was hospitalized for ~3 wks. She was seen by HH following hospital d/c, and this ended within the last 2 wks. HH therapy primarily targeted increasing the pt's vocal loudness and improving speech intelligibility. Per pt /spouse report, the pt continues with dysphagia symptoms, notably experiencing increased coughing with most sugary foods, which she now avoids. She drinks all liquids from straw to increase independence in feeding. Subjective Others Present Family Observations/Patient Presentation The pt arrived on time accompanied by her who was present throughout the session. Chief Complaint(s) Speech,Swallowing,Voice Patient Knowledge/Awareness of SUBSTANCE ABUSE CLINICIAN Role Excellent in Treatment Parent/Caretake Knowledge/Awareness of Excellent SUBSTANCE ABUSE CLINICIAN Role in Treatment Patient/Caregiver Compliance with Home Good Exercise Program Objective Short Term Goals Dysphagia: 1. The pt will follow safe swallow strategies with minimal cuing to reduce risk of aspiration. 2. The pt will perform oral motor and swallow exercises with min cues to improve/ maintain oral integrity for bolus prep, swallow and speech intelligibility. 3. The pt will participate in evaluation of voice and speech intelligiblity to guide POC. Additional goals to be developed pending results. Voice: 1. The pt will sustain /i/ for 15 sec with clear voicing at avg loudness of 60 dB or greater. 2. The pt will perform pitch glide exercises with continuous voicing to increase pitch range and reduce monotone voice. 3. The pt will read sentences of moderate length with continuous voicing and an avg of 60 dB or greater in 80% of opportunities to increase speech intelligibility and ability to communicate effectively. 4. The pt will read sentences structured to vary inflection with 80% acc to increase suprasegmentals of speech and increase speech intelligibility. Assisted Goals Dysphagia: 1. The pt will comply with daily HEP with min-mod assistance and reminders in order to improve swallow and communication skills. 2. The pt will tolerate least restrictive diet to meet her nutrition and hydration needs. Voice: 1. The pt will read short paragraphs with continuous voicing and an avg of 60 dB or greater in 80% of opportunities to increase speech intelligibility and ability to communicate effectively. 2. The pt will produce speech at 60 dB or greater in short conversations (~5 min) in 70% of opportunities to increase speech intelligibility and ability to communicate effectively. Treatment Activities Pt monitored and cleared voice when wet with mod v/v cues. Written reminder twas provided as visual aid to increase independence airway protection . Re-eduated pt in using breath support to power the voice and minimize push from the VFs. With cues for this, the pt sustained /i/ with continuous voicing up to 17s with avg loudntss of 69 dB, range = 63- 74 dB. Given functional phrases read individually by SUBSTANCE ABUSE CLINICIAN with pt immitating, the pt recited phrases with vocal loudness perceived to be 65-70 dB (WNL) with inflection matching that of SUBSTANCE ABUSE CLINICIAN. Pt was reminded to power from her belly. Given short phrases not viewable by SUBSTANCE ABUSE CLINICIAN, the pt read phrases with 77% intellgibility, as measured by SUBSTANCE ABUSE CLINICIAN's ability to repeat them after the pt. Skilled feedback and encouragement was provided. In subsequent conversation, the pt's vocal loudness dropped to <60 dB, although continuous voicing was perceived in >80% of all utterances. Assessment Patient Response to Treatment Good Rehab Potential Fair Impairments Identified Dysphagia,Parkinson's Disease, Speech Intelligibility,Vocal Quality Progress Towards Goals Slow Progress Assessment of Overall Progress Improving Assessment of Improvement The pt was highly responsive to training and prompts to use breath to power her voice. As a result, she achieved the greatest duration of continuous voicing and maintained loudness levels WNL for the greatest amount of time/tasks today as she has since SOC. She expressed pleasure at having achieved levels WNLs. At end of session , she did express being fatigued and loudness levels in conversation did drop to below normal. However, she continued with voicing in a large majority of her utterances rather than whispering, which is significant progress. Reviewed with Patient Goals,Progress Being Made,Home Exercise Program Patient/Caregiver Understanding Good Plan Frequency of Treatment Once a Week Length of Session 45 Minutes Therapeutic Contents Client Education,Expressive Language Training,Home Exercise Program, Intelligibility,Voice Training Provided Patient/Caregiver Instruction Home Exercise Program,Plan of Care,Questions/Concerns Therapy Recommendations Continue with Current Program
--- NOTE | 2020-06-01 11:34 | ST.OPTN ---
Visit Care Team Role Provider Type Hudson Mcmanus MD Attending Provider Physician Primary Care Provider Referring Provider Address: [address] [place] [address], [address], [place], [address] BAR HOST/HOSTESS Treatment Note BAR HOST/HOSTESS Treatment Note Start: 04/04/20 12:29 Freq: Status: Active Protocol: Document 05/30/20 18:28 GEOVANNI (Rec: 05/30/20 18:28 GEOVANNI [email or web address]) Speech Pathology Treatment Note Session Time Visit Start Time 12:30 Visit Stop Time 13:15 Total Visit Minutes 45 Visit Information Visit Number 8 Plan of Care Dates 04/04/20 - 07/05/20 Insurance Information Medicare Setting Treatment Setting Outpatient Care Visit Type Note Type Treatment Note Next Note Type Next Note Type Treatment Note General Information General Information The pt is a 75-yr-old female with long history of Parkinson 's disease. She is familiar to the clinician from previous dysphagia and voice therapy, which ended in May 2019. Per pt/spouse report, the pt acquired aspiration pneumonia shortly after therapy ended and was hospitalized for ~3 wks. She was seen by HH following hospital d/c, and this ended within the last 2 wks. HH therapy primarily targeted increasing the pt's vocal loudness and improving speech intelligibility. Per pt /spouse report, the pt continues with dysphagia symptoms, notably experiencing increased coughing with most sugary foods, which she now avoids. She drinks all liquids from straw to increase independence in feeding. Subjective Identification Type Name,ID Card Others Present Family Observations/Patient Presentation The pt arrived on time accompanied by her who was present throughout the session. Chief Complaint(s) Speech,Swallowing,Voice Patient Knowledge/Awareness of BAR HOST/HOSTESS Role Excellent in Treatment Parent/Caretake Knowledge/Awareness of Excellent BAR HOST/HOSTESS Role in Treatment Patient/Caregiver Compliance with Home Good Exercise Program Objective Short Term Goals Dysphagia: 1. The pt will follow safe swallow strategies with minimal cuing to reduce risk of aspiration. 2. The pt will perform oral motor and swallow exercises with min cues to improve/ maintain oral integrity for bolus prep, swallow and speech intelligibility. 3. The pt will participate in evaluation of voice and speech intelligiblity to guide POC. Additional goals to be developed pending results. Voice: 1. The pt will sustain /i/ for 15 sec with clear voicing at avg loudness of 60 dB or greater. 2. The pt will perform pitch glide exercises with continuous voicing to increase pitch range and reduce monotone voice. 3. The pt will read sentences of moderate length with continuous voicing and an avg of 60 dB or greater in 80% of opportunities to increase speech intelligibility and ability to communicate effectively. 4. The pt will read sentences structured to vary inflection with 80% acc to increase suprasegmentals of speech and increase speech intelligibility. Gasket Maker Goals Dysphagia: 1. The pt will comply with daily HEP with min-mod assistance and reminders in order to improve swallow and communication skills. 2. The pt will tolerate least restrictive diet to meet her nutrition and hydration needs. Voice: 1. The pt will read short paragraphs with continuous voicing and an avg of 60 dB or greater in 80% of opportunities to increase speech intelligibility and ability to communicate effectively. 2. The pt will produce speech at 60 dB or greater in short conversations (~5 min) in 70% of opportunities to increase speech intelligibility and ability to communicate effectively. Treatment Activities Pt participated in 10-min conversation at start of session, producing consistent voicing in >90% opportunities and with ~80% speech intelligibility. Vocal loudness was WFL for the majority of the conversation, with minimal need for repetition. The topic was of interest to the pt (gay) and she was more lively and animated than is typical in therapy. The pt endorsed consistent exercise and her 's new practice of not respondint to her unless she can be heard as beneficial to her increased vocal use and loudness. The pt perfomed sustained phonation tasks, initially with strained voice. Re- trained pt on diaphragmatic breathing using shorter durations of phonation (3 sec) on a variety of vowels and with pt's hand on her stomach for biofeedback to feel the push from your abs. This both increased loudness and improved quality of voice. Using her functional phrases and instructions for loud voice and big mouth movements for her conversation partner to both hear and see her words , the pt repeated functional phrases after the clinician with consistent voicing throuhgout, independently taking breaths where needed to continue voicing. The pt exhibited increased fatigue toward the end of the session, as demonstrated by yawning and closing her eyes, requiring increased prompts from BAR HOST/HOSTESS. Assessment Patient Response to Treatment Good Rehab Potential Fair Impairments Identified Dysphagia,Parkinson's Disease, Speech Intelligibility,Vocal Quality Progress Towards Goals Slow Progress Assessment of Overall Progress Improving Assessment of Improvement The pt exhibited increased vocal loudness, continuous voicing, and improved vocal quality in spontaneous communication for increased duration of time (up to 10 min ). Pitch inflection and facial expression was improved during this conversation on a topic of high interest to the pt. She was responsive to theraputic prompts to improve/ maintain vocal quality using diaphragmatic breathing. She did fatigue over the course of treatment, indicating limited duration of activity. She is increasing in her self- monitoring for and managing wet vocal quality, resulting from reduced saliva management , but does continue to require verbal prompts. She demonstrated good metacognitive skills and insight into strategies and factors that are assisting her in making progress toward her goals (e.g., consistent HEP practice and responses from spouse). Reviewed with Patient Goals,Progress Being Made,Home Exercise Program Patient/Caregiver Understanding Good Plan Length of Session 45 Minutes Treatment Emphasis Next Session Continuous voicing with picture description Therapeutic Contents Client Education,Expressive Language Training,Home Exercise Program, Intelligibility,Voice Training Provided Patient/Caregiver Instruction Home Exercise Program,Plan of Care,Questions/Concerns Therapy Recommendations Continue with Current Program
--- NOTE | 2020-06-06 16:47 | ST.OPTN ---
Visit Care Team Role Provider Type Hudson Mcmanus MD Attending Provider Physician Primary Care Provider Referring Provider Address: [address] [place] [address], [address], [place], [address] WIRE WEAVING LOOM SETTER Treatment Note WIRE WEAVING LOOM SETTER Treatment Note Start: 04/04/20 12:29 Freq: Status: Active Protocol: Document 06/06/20 16:35 GEOVANNI (Rec: 06/06/20 16:47 [email or web address]) Speech Pathology Treatment Note Session Time Visit Start Time 12:30 Visit Stop Time 13:15 Total Visit Minutes 45 Visit Information Visit Number 9 Plan of Care Dates 04/04/20 - 07/05/20 Insurance Information Medicare Setting Treatment Setting Outpatient Care Visit Type Note Type Treatment Note Next Note Type Next Note Type Treatment Note General Information General Information The pt is a 75-yr-old female with long history of Parkinson 's disease. She is familiar to the clinician from previous dysphagia and voice therapy, which ended in May 2019. Per pt/spouse report, the pt acquired aspiration pneumonia shortly after therapy ended and was hospitalized for ~3 wks. She was seen by HH following hospital d/c, and this ended within the last 2 wks. HH therapy primarily targeted increasing the pt's vocal loudness and improving speech intelligibility. Per pt /spouse report, the pt continues with dysphagia symptoms, notably experiencing increased coughing with most sugary foods, which she now avoids. She drinks all liquids from straw to increase independence in feeding. Subjective Identification Type Name,ID Card Others Present Family Observations/Patient Presentation The pt arrived on time accompanied by her who did not attend session. The pt reported not feeling well today, particularly hurting at her right buttock, which she associated with having PT yesterday. She was provided a pillow, placed under her, which brought her some comfort . Chief Complaint(s) Speech,Swallowing,Voice Patient Knowledge/Awareness of WIRE WEAVING LOOM SETTER Role Excellent in Treatment Parent/Caretake Knowledge/Awareness of Excellent WIRE WEAVING LOOM SETTER Role in Treatment Patient/Caregiver Compliance with Home Good Exercise Program Objective Short Term Goals Dysphagia: 1. The pt will follow safe swallow strategies with minimal cuing to reduce risk of aspiration. 2. The pt will perform oral motor and swallow exercises with min cues to improve/ maintain oral integrity for bolus prep, swallow and speech intelligibility. 3. The pt will participate in evaluation of voice and speech intelligiblity to guide POC. Additional goals to be developed pending results. Voice: 1. The pt will sustain /i/ for 15 sec with clear voicing at avg loudness of 60 dB or greater. 2. The pt will perform pitch glide exercises with continuous voicing to increase pitch range and reduce monotone voice. 3. The pt will read sentences of moderate length with continuous voicing and an avg of 60 dB or greater in 80% of opportunities to increase speech intelligibility and ability to communicate effectively. 4. The pt will read sentences structured to vary inflection with 80% acc to increase suprasegmentals of speech and increase speech intelligibility. Fpc Goals Dysphagia: 1. The pt will comply with daily HEP with min-mod assistance and reminders in order to improve swallow and communication skills. 2. The pt will tolerate least restrictive diet to meet her nutrition and hydration needs. Voice: 1. The pt will read short paragraphs with continuous voicing and an avg of 60 dB or greater in 80% of opportunities to increase speech intelligibility and ability to communicate effectively. 2. The pt will produce speech at 60 dB or greater in short conversations (~5 min) in 70% of opportunities to increase speech intelligibility and ability to communicate effectively. Treatment Activities The pt exhibited significantly quieter voice, as compared to the last several sessions, with frequent whispering throughout. With effort, she was able to increase breath support to produce continual voicing in structured tasks ( sustained phonation in 3-sec increments, word/phrase/ sentence repetition). The pt engaged in conversation for ~ 15 min on topic of skiing, which is of great interest to her. In conversation, the pt was ~55% intelligible, requiring mod-max prompts for big mouth and big voice and requiring lip reading from the WIRE WEAVING LOOM SETTER. The pt also exhibited increased wet vocal quality, requiring frequent coughing to clear. Cough production was perceived to be stronger and more productive than in past, yet the pt was unable to expel mucus. Assessment Patient Response to Treatment Fair Rehab Potential Fair Impairments Identified Dysphagia,Parkinson's Disease, Speech Intelligibility,Vocal Quality Progress Towards Goals Slow Progress Assessment of Overall Progress Improving Assessment of Improvement Reduced vocal loudness and increased wet vocal quality observed, secondary to fatigue , pain, and the pt generally not feeling well. Strength of cough, however, was perceived to be improved, although the pt continues to be unable to expel mucus. She was responsive to prompts throughout the session but did need greater amount of cuing. Reviewed with Patient Goals,Progress Being Made,Home Exercise Program Patient/Caregiver Understanding Good Plan Length of Session 45 Minutes Treatment Emphasis Next Session Continuous voicing with picture description Therapeutic Contents Client Education,Expressive Language Training,Home Exercise Program, Intelligibility,Voice Training Provided Patient/Caregiver Instruction Home Exercise Program,Plan of Care,Questions/Concerns Therapy Recommendations Continue with Current Program
--- NOTE | 2020-06-13 17:50 | ST.OPTN ---
Visit Care Team Role Provider Type Hudson Mcmanus MD Attending Provider Physician Primary Care Provider Referring Provider Address: [address] [place] [address], [address], [place], [address] DRIVE IN WAITER/WAITRESS Treatment Note DRIVE IN WAITER/WAITRESS Treatment Note Start: 04/04/20 12:29 Freq: Status: Active Protocol: Document 06/13/20 17:46 GEOVANNI (Rec: 06/13/20 17:50 GEOVANNI [email or web address]) Speech Pathology Treatment Note Session Time Visit Start Time 13:30 Visit Stop Time 14:15 Total Visit Minutes 45 Visit Information Visit Number 10 Plan of Care Dates 06/13/20 - 09/11/20 Insurance Information Medicare Setting Treatment Setting Outpatient Care Visit Type Note Type Treatment Note Next Note Type Next Note Type Treatment Note General Information General Information The pt is a 75-yr-old female with long history of Parkinson 's disease. She is familiar to the clinician from previous dysphagia and voice therapy, which ended in May 2019. Per pt/spouse report, the pt acquired aspiration pneumonia shortly after therapy ended and was hospitalized for ~3 wks. She was seen by HH following hospital d/c, and this ended within the last 2 wks. HH therapy primarily targeted increasing the pt's vocal loudness and improving speech intelligibility. Per pt /spouse report, the pt continues with dysphagia symptoms, notably experiencing increased coughing with most sugary foods, which she now avoids. She drinks all liquids from straw to increase independence in feeding. Subjective Identification Type Name,ID Card Others Present Family Observations/Patient Presentation The pt arrived on time accompanied by her who did not attend session. No new complaints. Chief Complaint(s) Speech,Swallowing,Voice Patient Knowledge/Awareness of DRIVE IN WAITER/WAITRESS Role Excellent in Treatment Parent/Caretake Knowledge/Awareness of Excellent DRIVE IN WAITER/WAITRESS Role in Treatment Patient/Caregiver Compliance with Home Good Exercise Program Objective Short Term Goals Dysphagia: 1. The pt will follow safe swallow strategies with minimal cuing to reduce risk of aspiration. 2. The pt will perform oral motor and swallow exercises with min cues to improve/ maintain oral integrity for bolus prep, swallow and speech intelligibility. 3. The pt will participate in evaluation of voice and speech intelligiblity to guide POC. Additional goals to be developed pending results. Voice: 1. The pt will sustain /i/ for 15 sec with clear voicing at avg loudness of 60 dB or greater. 2. The pt will perform pitch glide exercises with continuous voicing to increase pitch range and reduce monotone voice. 3. The pt will read sentences of moderate length with continuous voicing and an avg of 60 dB or greater in 80% of opportunities to increase speech intelligibility and ability to communicate effectively. 4. The pt will read sentences structured to vary inflection with 80% acc to increase suprasegmentals of speech and increase speech intelligibility. Cement Paver Goals Dysphagia: 1. The pt will comply with daily HEP with min-mod assistance and reminders in order to improve swallow and communication skills. 2. The pt will tolerate least restrictive diet to meet her nutrition and hydration needs. Voice: 1. The pt will read short paragraphs with continuous voicing and an avg of 60 dB or greater in 80% of opportunities to increase speech intelligibility and ability to communicate effectively. 2. The pt will produce speech at 60 dB or greater in short conversations (~5 min) in 70% of opportunities to increase speech intelligibility and ability to communicate effectively. Treatment Activities Sustained /a/, /o/, /i/ for 3- sec hold each with inconsistent results, reduced loudness, 75% acc. Repetition of functional and other words/phrases with emphasis on big voice, big mouth. Prosody: Pt read sentence pairs aloud varying intonation based on punctuation. Good prosody, reduced intelligibility (~40%) upon first trial. Improved to 78% intelligiblity upon second trial with mod prompts. Assessment Patient Response to Treatment Fair Rehab Potential Fair Impairments Identified Dysphagia,Parkinson's Disease, Speech Intelligibility,Vocal Quality Progress Towards Goals Slow Progress Assessment of Overall Progress Improving Assessment of Improvement Over the course of treatment, the pt has shown slow improvement with continuous voicing and with swallow safety when she consumes liquids in single sips with double swallow. She continues to consistently cough after multiple consecutive sips without use of strategies, indicating incomplete airway closure and reduced muscular stamina. She does frequently exhibit wet vocal quality when talking, but this clears when the pt coughs and swallows, and she is improving in her ability to self-monitor her voice with fewer cues needed to cough and swallow. She benefits from written reminder to monitor this during therapy sessions. Over the last several weeks, the pt's cough has been perceived as being stronger. She continues to have difficulty expelling phlegm; however, she requires fewer coughs to clear her voice and coughs appear to be closer to WFL in strength. The pt continues to have a very weak voice, which often presents as a whisper. For 3 weeks, she demonstrated consistent improvement in vocal loudness and continous voicing in conversation and structured tasks. The following week she was not feeling well and experienced a setback in intelligibility from which she seems to be slowly recovering. She does fatigue somewhat easily, often with declining voice by the end of a 45-min session, and benefits from breaks. Her , Oh, continues to be a good support for her, cuing her appropriately when she needs to increase loudness or use strategies. At home he sometimes does not respond to Elise unless she uses adequate loudness, which Elise expressed being appreciative of, as that reminds her that she needs to be louder. Continued skilled intervention is medically necessary to increase the pt's ability to express herself adequately in functional situations, to improve/maintain swallow safety, and to maintain highest level of independence and quality of life. Reviewed with Patient Goals,Progress Being Made,Home Exercise Program Patient/Caregiver Understanding Good Plan Amount of Therapy Recommended 3-4 Months Frequency of Treatment Once a Week Length of Session 45 Minutes Treatment Emphasis Next Session Oral motor exercises; Continuous voicing with picture description Therapeutic Contents Client Education,Expressive Language Training,Home Exercise Program, Intelligibility,Voice Training Provided Patient/Caregiver Instruction Home Exercise Program,Plan of Care,Questions/Concerns Therapy Recommendations Continue with Current Program
--- NOTE | 2020-06-20 17:01 | ST.OPTN ---
Visit Care Team Role Provider Type Hudson Mcmanus MD Attending Provider Physician Primary Care Provider Referring Provider Address: [address] [place] [address], [address], [place], [address] PARALEGAL INSTRUCTOR Treatment Note PARALEGAL INSTRUCTOR Treatment Note Start: 04/04/20 12:29 Freq: Status: Active Protocol: Document 06/13/20 17:46 GEOVANNI (Rec: 06/13/20 17:50 GEOVANNI [email or web address]) Speech Pathology Treatment Note Session Time Visit Start Time 13:30 Visit Stop Time 14:15 Total Visit Minutes 45 Visit Information Visit Number 10 Plan of Care Dates 06/13/20 - 09/11/20 Insurance Information Medicare Setting Treatment Setting Outpatient Care Visit Type Note Type Treatment Note Next Note Type Next Note Type Treatment Note General Information General Information The pt is a 75-yr-old female with long history of Parkinson 's disease. She is familiar to the clinician from previous dysphagia and voice therapy, which ended in May 2019. Per pt/spouse report, the pt acquired aspiration pneumonia shortly after therapy ended and was hospitalized for ~3 wks. She was seen by HH following hospital d/c, and this ended within the last 2 wks. HH therapy primarily targeted increasing the pt's vocal loudness and improving speech intelligibility. Per pt /spouse report, the pt continues with dysphagia symptoms, notably experiencing increased coughing with most sugary foods, which she now avoids. She drinks all liquids from straw to increase independence in feeding. Subjective Identification Type Name,ID Card Others Present Family Observations/Patient Presentation The pt arrived on time accompanied by her who did not attend session. No new complaints. Chief Complaint(s) Speech,Swallowing,Voice Patient Knowledge/Awareness of PARALEGAL INSTRUCTOR Role Excellent in Treatment Parent/Caretake Knowledge/Awareness of Excellent PARALEGAL INSTRUCTOR Role in Treatment Patient/Caregiver Compliance with Home Good Exercise Program Objective Short Term Goals Dysphagia: 1. The pt will follow safe swallow strategies with minimal cuing to reduce risk of aspiration. 2. The pt will perform oral motor and swallow exercises with min cues to improve/ maintain oral integrity for bolus prep, swallow and speech intelligibility. 3. The pt will participate in evaluation of voice and speech intelligiblity to guide POC. Additional goals to be developed pending results. Voice: 1. The pt will sustain /i/ for 15 sec with clear voicing at avg loudness of 60 dB or greater. 2. The pt will perform pitch glide exercises with continuous voicing to increase pitch range and reduce monotone voice. 3. The pt will read sentences of moderate length with continuous voicing and an avg of 60 dB or greater in 80% of opportunities to increase speech intelligibility and ability to communicate effectively. 4. The pt will read sentences structured to vary inflection with 80% acc to increase suprasegmentals of speech and increase speech intelligibility. Account Service Associate Goals Dysphagia: 1. The pt will comply with daily HEP with min-mod assistance and reminders in order to improve swallow and communication skills. 2. The pt will tolerate least restrictive diet to meet her nutrition and hydration needs. Voice: 1. The pt will read short paragraphs with continuous voicing and an avg of 60 dB or greater in 80% of opportunities to increase speech intelligibility and ability to communicate effectively. 2. The pt will produce speech at 60 dB or greater in short conversations (~5 min) in 70% of opportunities to increase speech intelligibility and ability to communicate effectively. Treatment Activities Sustained /a/, /o/, /i/ for 3- sec hold each with inconsistent results, reduced loudness, 75% acc. Repetition of functional and other words/phrases with emphasis on big voice, big mouth. Prosody: Pt read sentence pairs aloud varying intonation based on punctuation. Good prosody, reduced intelligibility (~40%) upon first trial. Improved to 78% intelligiblity upon second trial with mod prompts. Assessment Patient Response to Treatment Fair Rehab Potential Fair Impairments Identified Dysphagia,Parkinson's Disease, Speech Intelligibility,Vocal Quality Progress Towards Goals Slow Progress Assessment of Overall Progress Improving Assessment of Improvement Over the course of treatment, the pt has shown slow improvement with continuous voicing and with swallow safety when she consumes liquids in single sips with double swallow. She continues to consistently cough after multiple consecutive sips without use of strategies, indicating incomplete airway closure and reduced muscular stamina. She does frequently exhibit wet vocal quality when talking, but this clears when the pt coughs and swallows, and she is improving in her ability to self-monitor her voice with fewer cues needed to cough and swallow. She benefits from written reminder to monitor this during therapy sessions. Over the last several weeks, the pt's cough has been perceived as being stronger. She continues to have difficulty expelling phlegm; however, she requires fewer coughs to clear her voice and coughs appear to be closer to WFL in strength. The pt continues to have a very weak voice, which often presents as a whisper. For 3 weeks, she demonstrated consistent improvement in vocal loudness and continous voicing in conversation and structured tasks. The following week she was not feeling well and experienced a setback in intelligibility from which she seems to be slowly recovering. She does fatigue somewhat easily, often with declining voice by the end of a 45-min session, and benefits from breaks. Her , Oh, continues to be a good support for her, cuing her appropriately when she needs to increase loudness or use strategies. At home he sometimes does not respond to Elise unless she uses adequate loudness, which Elise expressed being appreciative of, as that reminds her that she needs to be louder. Continued skilled intervention is medically necessary to increase the pt's ability to express herself adequately in functional situations, to improve/maintain swallow safety, and to maintain highest level of independence and quality of life. Reviewed with Patient Goals,Progress Being Made,Home Exercise Program Patient/Caregiver Understanding Good Plan Amount of Therapy Recommended 3-4 Months Frequency of Treatment Once a Week Length of Session 45 Minutes Treatment Emphasis Next Session Oral motor exercises; Continuous voicing with picture description Therapeutic Contents Client Education,Expressive Language Training,Home Exercise Program, Intelligibility,Voice Training Provided Patient/Caregiver Instruction Home Exercise Program,Plan of Care,Questions/Concerns Therapy Recommendations Continue with Current Program
--- NOTE | 2020-06-20 17:02 | ST.OPTN ---
Visit Care Team Role Provider Type Hudson Mcmanus MD Attending Provider Physician Primary Care Provider Referring Provider Address: [address] [place] [address], [address], [place], [address] DISTILLERY WORKER GENERAL Treatment Note DISTILLERY WORKER GENERAL Treatment Note Start: 04/04/20 12:29 Freq: Status: Active Protocol: Document 06/20/20 16:54 GEOVANNI (Rec: 06/27/20 17:02 GEOVANNI [email or web address]) Speech Pathology Treatment Note Session Time Visit Start Time 13:30 Visit Stop Time 14:15 Total Visit Minutes 45 Visit Information Visit Number 06/04 Plan of Care Dates 06/13/20 - 09/11/20 Insurance Information Medicare Setting Treatment Setting Outpatient Care Visit Type Note Type Treatment Note Next Note Type Next Note Type Treatment Note General Information General Information The pt is a 75-yr-old female with long history of Parkinson 's disease. She is familiar to the clinician from previous dysphagia and voice therapy, which ended in May 2019. Per pt/spouse report, the pt acquired aspiration pneumonia shortly after therapy ended and was hospitalized for ~3 wks. She was seen by HH following hospital d/c, and this ended within the last 2 wks. HH therapy primarily targeted increasing the pt's vocal loudness and improving speech intelligibility. Per pt /spouse report, the pt continues with dysphagia symptoms, notably experiencing increased coughing with most sugary foods, which she now avoids. She drinks all liquids from straw to increase independence in feeding. Subjective Identification Type Name,ID Card Others Present Family Observations/Patient Presentation The pt arrived on time accompanied by her who did not attend session. No new complaints. Chief Complaint(s) Speech,Swallowing,Voice Patient Knowledge/Awareness of DISTILLERY WORKER GENERAL Role Excellent in Treatment Parent/Caretake Knowledge/Awareness of Excellent DISTILLERY WORKER GENERAL Role in Treatment Patient/Caregiver Compliance with Home Good Exercise Program Objective Short Term Goals Dysphagia: 1. The pt will follow safe swallow strategies with minimal cuing to reduce risk of aspiration. 2. The pt will perform oral motor and swallow exercises with min cues to improve/ maintain oral integrity for bolus prep, swallow and speech intelligibility. 3. The pt will participate in evaluation of voice and speech intelligiblity to guide POC. Additional goals to be developed pending results. Voice: 1. The pt will sustain /i/ for 15 sec with clear voicing at avg loudness of 60 dB or greater. 2. The pt will perform pitch glide exercises with continuous voicing to increase pitch range and reduce monotone voice. 3. The pt will read sentences of moderate length with continuous voicing and an avg of 60 dB or greater in 80% of opportunities to increase speech intelligibility and ability to communicate effectively. 4. The pt will read sentences structured to vary inflection with 80% acc to increase suprasegmentals of speech and increase speech intelligibility. [facility]ci Goals Dysphagia: 1. The pt will comply with daily HEP with min-mod assistance and reminders in order to improve swallow and communication skills. 2. The pt will tolerate least restrictive diet to meet her nutrition and hydration needs. Voice: 1. The pt will read short paragraphs with continuous voicing and an avg of 60 dB or greater in 80% of opportunities to increase speech intelligibility and ability to communicate effectively. 2. The pt will produce speech at 60 dB or greater in short conversations (~5 min) in 70% of opportunities to increase speech intelligibility and ability to communicate effectively. Treatment Activities The pt's voice was observed to be significantly quiet, frequently a whisper. Initiated new oral motor exercisesto increase/maintain facial expression and promote improved intelligibility. With DISTILLERY WORKER GENERAL guidance, the pt performed smile-pucker task, then added voice producing ee -oo with audible voice. Range of muscular motion decreased with addition of voice; however, the pt regained ROM with DISTILLERY WORKER GENERAL prompts. Trained pt in diadochokinetic tasks using bay, day, wilmer words repeated in isolation and in sequence to engage voicing as well as articulatory coordination. With mod-max prompts, the pt clearly and audibly articulated targets with ~75% accuracy, occasionally reduced articulatory contacts, resulting in may, nay, yay. However the pt was responsive to prompts and corrected. Exercises were provided in writing for home practice. Assessment Patient Response to Treatment Fair Rehab Potential Fair Impairments Identified Dysphagia,Parkinson's Disease, Speech Intelligibility,Vocal Quality Progress Towards Goals Slow Progress Assessment of Overall Progress Improving Assessment of Improvement The pt continues with decreased vocal loudness levels, often resulting in whispers, and significantly impacting speech intelligibility. With prompting, she was usually but not always able to produce audible phonation. She was participatory in oral motor exercises, demonstrating understanding and ability to perform. Reviewed with Patient Goals,Progress Being Made,Home Exercise Program Patient/Caregiver Understanding Good Plan Amount of Therapy Recommended 3-4 Months Frequency of Treatment Once a Week Length of Session 45 Minutes Treatment Emphasis Next Session Respiratory strength training Therapeutic Contents Client Education,Expressive Language Training,Home Exercise Program, Intelligibility,Voice Training Provided Patient/Caregiver Instruction Home Exercise Program,Plan of Care,Questions/Concerns Therapy Recommendations Continue with Current Program
--- NOTE | 2020-06-27 17:15 | ST.OPTN ---
Visit Care Team Role Provider Type Hudson Mcmanus MD Attending Provider Physician Primary Care Provider Referring Provider Address: [address] [place] [address], [address], [place], [address] COMBAT SYSTEMS ENGINEER Treatment Note COMBAT SYSTEMS ENGINEER Treatment Note Start: 04/04/20 12:29 Freq: Status: Active Protocol: Document 06/27/20 17:02 GEOVANNI (Rec: 06/27/20 17:15 GEOVANNI [email or web address]) Speech Pathology Treatment Note Session Time Visit Start Time 13:30 Visit Stop Time 14:15 Total Visit Minutes 45 Visit Information Visit Number 07/05 Plan of Care Dates 06/13/20 - 09/11/20 Insurance Information Medicare Setting Treatment Setting Outpatient Care Visit Type Note Type Treatment Note Next Note Type Next Note Type Treatment Note General Information General Information The pt is a 75-yr-old female with long history of Parkinson 's disease. She is familiar to the clinician from previous dysphagia and voice therapy, which ended in May 2019. Per pt/spouse report, the pt acquired aspiration pneumonia shortly after therapy ended and was hospitalized for ~3 wks. She was seen by HH following hospital d/c, and this ended within the last 2 wks. HH therapy primarily targeted increasing the pt's vocal loudness and improving speech intelligibility. Per pt /spouse report, the pt continues with dysphagia symptoms, notably experiencing increased coughing with most sugary foods, which she now avoids. She drinks all liquids from straw to increase independence in feeding. Subjective Identification Type Name,ID Card Others Present Family Observations/Patient Presentation The pt arrived on time accompanied by her who was present for the last 15 minutes of the session. Chief Complaint(s) Speech,Swallowing,Voice Patient Knowledge/Awareness of COMBAT SYSTEMS ENGINEER Role Excellent in Treatment Parent/Caretake Knowledge/Awareness of Excellent COMBAT SYSTEMS ENGINEER Role in Treatment Patient/Caregiver Compliance with Home Good Exercise Program Objective Short Term Goals Dysphagia: 1. The pt will follow safe swallow strategies with minimal cuing to reduce risk of aspiration. 2. The pt will perform oral motor and swallow exercises with min cues to improve/ maintain oral integrity for bolus prep, swallow and speech intelligibility. 3. The pt will participate in evaluation of voice and speech intelligiblity to guide POC. Additional goals to be developed pending results. Voice: 1. The pt will sustain /i/ for 15 sec with clear voicing at avg loudness of 60 dB or greater. 2. The pt will perform pitch glide exercises with continuous voicing to increase pitch range and reduce monotone voice. 3. The pt will read sentences of moderate length with continuous voicing and an avg of 60 dB or greater in 80% of opportunities to increase speech intelligibility and ability to communicate effectively. 4. The pt will read sentences structured to vary inflection with 80% acc to increase suprasegmentals of speech and increase speech intelligibility. Nursing Home Goals Dysphagia: 1. The pt will comply with daily HEP with min-mod assistance and reminders in order to improve swallow and communication skills. 2. The pt will tolerate least restrictive diet to meet her nutrition and hydration needs. Voice: 1. The pt will read short paragraphs with continuous voicing and an avg of 60 dB or greater in 80% of opportunities to increase speech intelligibility and ability to communicate effectively. 2. The pt will produce speech at 60 dB or greater in short conversations (~5 min) in 70% of opportunities to increase speech intelligibility and ability to communicate effectively. Treatment Activities The pt again presented with whispered speech, minimal audible phonation. She reported not completing HEP tasks with any consistency. Skilled feedback was provided to the pt and repeated when her was present. Encouragement was provided RE the progress that we saw when she did consistently practice, as compared to the regression that appears to be happening now without consistent home practice. Exercise journal was made/updated with pt's tasks listed. The pt attempted to perform sustained and staccato phonation, pitch glide, and diadochokinetic tasks. Her voice was minimally audible. Skilled feedback and education was provided to the pt and RE the importance of respiratory muscle strength. Assessed the pt's ability to perform RMST exercises using The Breather device, which was provided to the pt for home use. She was able to perform both inhalation (at level 3) and exhalation (at level 2) appropriately. She was instructed to perform exercises 5-10 repetitions 3x/ day, which she agreed to attempt. She also agreed to bring device with her to therapy. Assessment Patient Response to Treatment Fair Rehab Potential Fair Impairments Identified Dysphagia,Parkinson's Disease, Speech Intelligibility,Vocal Quality Progress Towards Goals Slow Progress Assessment of Overall Progress Improving Assessment of Improvement The pt continues with significantly decreased vocal loudness levels, often resulting in whispers, and negatively impacting speech intelligibility. Cough production is inconsistent in strength, although not strong enough for pt to expel phlegm. Given the PD diagnosis and presentation, it is critical for her respiratory muscle strength to be adequate to produce voice and protective cough if her speech intelligibility and airway protection is to improve. Given her poor compliance with the current HEP, expectations for significant improvement of respiratory muscle strength may not be reasonable. Will continue to train and assess RMST exercises over the next 2 wks to determine feasibility, response to treatment and before establishing goals. Reviewed with Patient Goals,Progress Being Made,Home Exercise Program Patient/Caregiver Understanding Good Plan Amount of Therapy Recommended 3-4 Months Frequency of Treatment Once a Week Length of Session 45 Minutes Treatment Emphasis Next Session Respiratory strength training Therapeutic Contents Client Education,Expressive Language Training,Home Exercise Program, Intelligibility,Voice Training Provided Patient/Caregiver Instruction Home Exercise Program,Plan of Care,Questions/Concerns Therapy Recommendations Continue with Current Program
--- NOTE | 2020-07-04 17:03 | ST.OPTN ---
Visit Care Team Role Provider Type Hudson Mcmanus MD Attending Provider Physician Primary Care Provider Referring Provider Address: [address] [place] [address], [address], [place], [address] FUSING MACHINE FEEDER Treatment Note FUSING MACHINE FEEDER Treatment Note Start: 04/04/20 12:29 Freq: Status: Active Protocol: Document 07/04/20 16:43 GEOVANNI (Rec: 07/04/20 17:03 GEOVANNI [email or web address]) Speech Pathology Treatment Note Session Time Visit Start Time 12:30 Visit Stop Time 13:15 Total Visit Minutes 45 Visit Information Visit Number 08/02 Plan of Care Dates 06/13/20 - 09/11/20 Insurance Information Medicare Setting Treatment Setting Outpatient Care Visit Type Note Type Treatment Note Next Note Type Next Note Type Treatment Note General Information General Information The pt is a 75-yr-old female with long history of Parkinson 's disease. She is familiar to the clinician from previous dysphagia and voice therapy, which ended in May 2019. Per pt/spouse report, the pt acquired aspiration pneumonia shortly after therapy ended and was hospitalized for ~3 wks. She was seen by HH following hospital d/c, and this ended within the last 2 wks. HH therapy primarily targeted increasing the pt's vocal loudness and improving speech intelligibility. Per pt /spouse report, the pt continues with dysphagia symptoms, notably experiencing increased coughing with most sugary foods, which she now avoids. She drinks all liquids from straw to increase independence in feeding. Subjective Identification Type Name,ID Card Others Present Family Observations/Patient Presentation The pt arrived on time accompanied by her who was present initially and at end of session only. He was present for review of HEP tasks. Chief Complaint(s) Speech,Swallowing,Voice Patient Knowledge/Awareness of FUSING MACHINE FEEDER Role Excellent in Treatment Parent/Caretake Knowledge/Awareness of Excellent FUSING MACHINE FEEDER Role in Treatment Patient/Caregiver Compliance with Home Good Exercise Program Objective Short Term Goals Dysphagia: 1. The pt will follow safe swallow strategies with minimal cuing to reduce risk of aspiration. 2. The pt will perform oral motor and swallow exercises with min cues to improve/ maintain oral integrity for bolus prep, swallow and speech intelligibility. 3. The pt will participate in evaluation of voice and speech intelligiblity to guide POC. Additional goals to be developed pending results. Voice: 1. The pt will sustain /i/ for 15 sec with clear voicing at avg loudness of 60 dB or greater. 2. The pt will perform pitch glide exercises with continuous voicing to increase pitch range and reduce monotone voice. 3. The pt will read sentences of moderate length with continuous voicing and an avg of 60 dB or greater in 80% of opportunities to increase speech intelligibility and ability to communicate effectively. 4. The pt will read sentences structured to vary inflection with 80% acc to increase suprasegmentals of speech and increase speech intelligibility. Long-Term Goals Dysphagia: 1. The pt will comply with daily HEP with min-mod assistance and reminders in order to improve swallow and communication skills. 2. The pt will tolerate least restrictive diet to meet her nutrition and hydration needs. Voice: 1. The pt will read short paragraphs with continuous voicing and an avg of 60 dB or greater in 80% of opportunities to increase speech intelligibility and ability to communicate effectively. 2. The pt will produce speech at 60 dB or greater in short conversations (~5 min) in 70% of opportunities to increase speech intelligibility and ability to communicate effectively. Treatment Activities The pt again presented with whispered speech, minimal audible phonation. She completed exercises with The Breather RMST device, mostly set at level 1 for both inspiration and expiration, although her did at some point return settings to level 1 for inspiration and 2 for expiration for consistency with last week's session. Re-evaluated pt at these settings. With appropriate effort, she was able to effectively breath through the device and reported the settings felt challenging but good. Established exercise protocol according to device recommendations with moderation made for pt needs. Pt was instructed to forcefully and completely inhale and exhale as many times as possible in 30s (vs 60s per Breather recommendations), rest for 30- 60s, and repeat sequence for a total of 5 sets per day for the next week. The pt completed 4 sets during the session with verbal prompts for complete inhalation/exhalation. Twice sets were interrupted d/t pt lapse in coordinating breathing. This appeared to stem from cognitive confusion with coordination vs inability to perform resistance task. After a short break, the pt resumed reps with supervision and v/v prompts. Instructions for home practice were provided and reviewed with both the pt and her , both of whom verbalized understanding. Assessment Patient Response to Treatment Fair Rehab Potential Fair Impairments Identified Dysphagia,Parkinson's Disease, Speech Intelligibility,Vocal Quality Progress Towards Goals Slow Progress Assessment of Overall Progress Improving Assessment of Improvement The pt continues with significantly decreased vocal loudness levels, often resulting in whispers, and negatively impacting speech intelligibility. Cough production is inconsistent in strength, although not strong enough for pt to expel phlegm. The pt demonstrated good ability to perform RMST exercises but did require 1:1 guidance and v/v prompts to maintain consistent in/ exhalation performance. The pt's is able to provide this guidance at home. Also, the pt informed she has hired a PT apartment assistant manager to work with her 1x/wk on her PT exercises. FUSING MACHINE FEEDER suggested the apartment assistant manager may be able to aid in RMST exercises, as well, and the pt/spouse were agreeablt to this. The apartment assistant manager is known to this FUSING MACHINE FEEDER and will be consulted. Reviewed with Patient Goals,Progress Being Made,Home Exercise Program Patient/Caregiver Understanding Good Plan Amount of Therapy Recommended 3-4 Months Frequency of Treatment Once a Week Length of Session 45 Minutes Treatment Emphasis Next Session Respiratory muscle strength training (RMST) Therapeutic Contents Client Education,Expressive Language Training,Home Exercise Program, Intelligibility,Voice Training Provided Patient/Caregiver Instruction Home Exercise Program,Plan of Care,Questions/Concerns Therapy Recommendations Continue with Current Program
--- NOTE | 2020-07-11 17:42 | ST.OPTN ---
Visit Care Team Role Provider Type Hudson Mcmanus MD Attending Provider Physician Primary Care Provider Referring Provider Address: [address] [place] [address], [address], [place], [address] TAILOR GARMENT FITTER Treatment Note TAILOR GARMENT FITTER Treatment Note Start: 04/04/20 12:29 Freq: Status: Active Protocol: Document 07/11/20 17:30 GEOVANNI (Rec: 07/11/20 17:42 [email or web address]) Speech Pathology Treatment Note Session Time Visit Start Time 12:30 Visit Stop Time 13:15 Total Visit Minutes 45 Visit Information Visit Number 09/02 Plan of Care Dates 06/13/20 - 09/11/20 Insurance Information Medicare Setting Treatment Setting Outpatient Care Visit Type Note Type Treatment Note Next Note Type Next Note Type Treatment Note General Information General Information The pt is a 75-yr-old female with long history of Parkinson 's disease. She is familiar to the clinician from previous dysphagia and voice therapy, which ended in May 2019. Per pt/spouse report, the pt acquired aspiration pneumonia shortly after therapy ended and was hospitalized for ~3 wks. She was seen by HH following hospital d/c, and this ended within the last 2 wks. HH therapy primarily targeted increasing the pt's vocal loudness and improving speech intelligibility. Per pt /spouse report, the pt continues with dysphagia symptoms, notably experiencing increased coughing with most sugary foods, which she now avoids. She drinks all liquids from straw to increase independence in feeding. Subjective Identification Type Name,ID Card Others Present Family Observations/Patient Presentation The pt arrived on time accompanied by her who was present initially and at end of session only. He was present for review of HEP tasks. Chief Complaint(s) Speech,Swallowing,Voice Patient Knowledge/Awareness of TAILOR GARMENT FITTER Role Excellent in Treatment Parent/Caretake Knowledge/Awareness of Excellent TAILOR GARMENT FITTER Role in Treatment Patient/Caregiver Compliance with Home Good Exercise Program Objective Short Term Goals Dysphagia: 1. The pt will follow safe swallow strategies with minimal cuing to reduce risk of aspiration. 2. The pt will perform oral motor and swallow exercises with min cues to improve/ maintain oral integrity for bolus prep, swallow and speech intelligibility. 3. The pt will participate in evaluation of voice and speech intelligiblity to guide POC. Additional goals to be developed pending results. Voice: 1. The pt will sustain /i/ for 15 sec with clear voicing at avg loudness of 60 dB or greater. 2. The pt will perform pitch glide exercises with continuous voicing to increase pitch range and reduce monotone voice. 3. The pt will read sentences of moderate length with continuous voicing and an avg of 60 dB or greater in 80% of opportunities to increase speech intelligibility and ability to communicate effectively. 4. The pt will read sentences structured to vary inflection with 80% acc to increase suprasegmentals of speech and increase speech intelligibility. Senior Living Goals Dysphagia: 1. The pt will comply with daily HEP with min-mod assistance and reminders in order to improve swallow and communication skills. 2. The pt will tolerate least restrictive diet to meet her nutrition and hydration needs. Voice: 1. The pt will read short paragraphs with continuous voicing and an avg of 60 dB or greater in 80% of opportunities to increase speech intelligibility and ability to communicate effectively. 2. The pt will produce speech at 60 dB or greater in short conversations (~5 min) in 70% of opportunities to increase speech intelligibility and ability to communicate effectively. Treatment Activities Pt initially presented with whispered speech at start of session, improving to vocalized speech at low volumes (not instrumentally measured) requiring effort and lip reading from TAILOR GARMENT FITTER, ~65% intelligilble. Pt completed RMST exercises with verbal coaching, resistance set at 2 for inhalation and 1 for exhalation. 2 sets of 3-4 reps in 30 sec were completed. Increased challenge to duration of 45 sec per set with 45 sec rest between. Pt completed 5 sets of 4 reps each with strong in/ exhalations during first 3 sets, decreasing in strength during last 2 sets, indicating fatigue. The pt then completed sustained phonation with verbal prompt to be loud enough to be heard in the next room. With prompt, the pt increased from 3-count sustained phonation to 16- count with continued voicing, mild-mod rough voice perceptible in last 3 counts. With prompts to continue same loudness, she completed pitch exercises without decline, and read functional phrases x30 reps (3 sets of 10). Breath support for both loudness and sustained phonation across duration of short phrases and sentences declined during 2nd and 3rd sets, again indicating fatigue. She participated in conversation for last 5 min of tx, maintaining voice in ~85% of speech, intelligibility described above. Assessment Patient Response to Treatment Good Rehab Potential Fair Impairments Identified Dysphagia,Parkinson's Disease, Speech Intelligibility,Vocal Quality Progress Towards Goals Slow Progress Assessment of Overall Progress Improving Assessment of Improvement The pt conpleted exercises with strong starts and evidence of fatigue after 3 sets each of various exercises . With short breaks, she was able to resume. She exhibited significant improvement in MPT with up to 16 sec of continuous audible voicing, highly responsive to verbal promts and encouragement. During RMST, she exhibited improved depth of breath and ability to fully exhale, as compared to previous sessions. , able to increase duration of sets from 30 to 45 sec. Conversational speech continued to be very soft but improved from whisper to mostly continuous voicing. Reviewed with Patient Goals,Progress Being Made,Home Exercise Program Patient/Caregiver Understanding Good Plan Amount of Therapy Recommended 3-4 Months Frequency of Treatment Once a Week Length of Session 45 Minutes Treatment Emphasis Next Session Respiratory muscle strength training (RMST) Therapeutic Contents Client Education,Expressive Language Training,Home Exercise Program, Intelligibility,Voice Training Provided Patient/Caregiver Instruction Home Exercise Program,Plan of Care,Questions/Concerns Therapy Recommendations Continue with Current Program
--- NOTE | 2020-07-18 17:15 | ST.OPTN ---
Visit Care Team Role Provider Type Hudson Mcmanus MD Attending Provider Physician Primary Care Provider Referring Provider Address: [address] [place] [address], [address], [place], [address] CAR REPAIRER Treatment Note CAR REPAIRER Treatment Note Start: 04/04/20 12:29 Freq: Status: Active Protocol: Document 07/18/20 17:06 GEOVANNI (Rec: 07/18/20 17:15 GEOVANNI [email or web address]) Speech Pathology Treatment Note Session Time Visit Start Time 12:30 Visit Stop Time 13:15 Total Visit Minutes 45 Visit Information Visit Number 10/02 Plan of Care Dates 06/13/20 - 09/11/20 Insurance Information Medicare Setting Treatment Setting Outpatient Care Visit Type Note Type Treatment Note Next Note Type Next Note Type Treatment Note General Information General Information The pt is a 75-yr-old female with long history of Parkinson 's disease. She is familiar to the clinician from previous dysphagia and voice therapy, which ended in May 2019. Per pt/spouse report, the pt acquired aspiration pneumonia shortly after therapy ended and was hospitalized for ~3 wks. She was seen by HH following hospital d/c, and this ended within the last 2 wks. HH therapy primarily targeted increasing the pt's vocal loudness and improving speech intelligibility. Per pt /spouse report, the pt continues with dysphagia symptoms, notably experiencing increased coughing with most sugary foods, which she now avoids. She drinks all liquids from straw to increase independence in feeding. Subjective Identification Type Name,ID Card Others Present Family Observations/Patient Presentation The pt arrived on time accompanied by her who was present initially and at end of session only. He was present for review of HEP tasks. Pt reported exercising only 2x since last session and found completing RMST reps for 45s intervals to be too difficult. Chief Complaint(s) Speech,Swallowing,Voice Patient Knowledge/Awareness of CAR REPAIRER Role Excellent in Treatment Parent/Caretake Knowledge/Awareness of Excellent CAR REPAIRER Role in Treatment Patient/Caregiver Compliance with Home Good Exercise Program Objective Short Term Goals Dysphagia: 1. The pt will follow safe swallow strategies with minimal cuing to reduce risk of aspiration. 2. The pt will perform oral motor and swallow exercises with min cues to improve/ maintain oral integrity for bolus prep, swallow and speech intelligibility. 3. The pt will participate in evaluation of voice and speech intelligiblity to guide POC. Additional goals to be developed pending results. Voice: 1. The pt will sustain /i/ for 15 sec with clear voicing at avg loudness of 60 dB or greater. 2. The pt will perform pitch glide exercises with continuous voicing to increase pitch range and reduce monotone voice. 3. The pt will read sentences of moderate length with continuous voicing and an avg of 60 dB or greater in 80% of opportunities to increase speech intelligibility and ability to communicate effectively. 4. The pt will read sentences structured to vary inflection with 80% acc to increase suprasegmentals of speech and increase speech intelligibility. Mcfp Goals Dysphagia: 1. The pt will comply with daily HEP with min-mod assistance and reminders in order to improve swallow and communication skills. 2. The pt will tolerate least restrictive diet to meet her nutrition and hydration needs. Voice: 1. The pt will read short paragraphs with continuous voicing and an avg of 60 dB or greater in 80% of opportunities to increase speech intelligibility and ability to communicate effectively. 2. The pt will produce speech at 60 dB or greater in short conversations (~5 min) in 70% of opportunities to increase speech intelligibility and ability to communicate effectively. Treatment Activities Discussed HEP schedule with pt /spouse. Pt had concerns of disrupting spouse while he slept by doing exercises in the morning. Agreed that pt would complete RMST exercises in the morning and voice exercises in afternoon when her was awake. Pt initially presented with whispered speech at start of session, improving to vocalized speech at low volumes (not instrumentally measured) and improved loudness and speech intelligibility from last session. Pt completed RMST exercises with verbal coaching, resistance set at 2 for inhalation and 1 for exhalation. Pt completed 5 sets of 4 reps each with strong in/exhalations during 4 sets with mildly decreased strength in 5th set, indicating fatigue. The pt then completed sustained phonation with verbal prompt to be loud enough to be heard in the next room. MPT = 22.9s with voicing that was at times instable and rough but continuous. With CAR REPAIRER guidance, pt completd lingual exercises with good ROM, diadochokinetic tasks with ~80% accuracy of articulation precision and voicing. This improved with verbal prompts. Assessment Patient Response to Treatment Good Rehab Potential Fair Impairments Identified Dysphagia,Parkinson's Disease, Speech Intelligibility,Vocal Quality Progress Towards Goals Slow Progress Assessment of Overall Progress Improving Assessment of Improvement The pt demonstrated signigicant increase of MPT with continuous, although at times rough and unstable, voicing. She exhibited improved endurance with RMST exercises limited to 30s-sets. Voicing in conversation improved from start to end of session, but required mod-max cues to promote continuous audible voice. The pt has been inconsistent with HEP but expressed willingness to commit to increasing compliance with newly agreed upon schedule. Reviewed with Patient Goals,Progress Being Made,Home Exercise Program Patient/Caregiver Understanding Good Plan Amount of Therapy Recommended 3-4 Months Frequency of Treatment Once a Week Length of Session 45 Minutes Treatment Emphasis Next Session Cont RMST, voice & oral-motor exercises Therapeutic Contents Client Education,Expressive Language Training,Home Exercise Program, Intelligibility,Voice Training Provided Patient/Caregiver Instruction Home Exercise Program,Plan of Care,Questions/Concerns Therapy Recommendations Continue with Current Program
--- NOTE | 2020-08-01 16:45 | ST.OPTN ---
Visit Care Team Role Provider Type Hudson Mcmanus MD Attending Provider Physician Primary Care Provider Referring Provider Address: [address] [place] [address], [address], [place], [address] JEWELRY SORTER Treatment Note JEWELRY SORTER Treatment Note Start: 04/04/20 12:29 Freq: Status: Active Protocol: Document 08/01/20 15:28 GEOVANNI (Rec: 08/01/20 15:29 GEOVANNI [email or web address]) Speech Pathology Treatment Note Session Time Visit Start Time 12:30 Visit Stop Time 13:15 Total Visit Minutes 45 Visit Information Visit Number 11/02 Plan of Care Dates 06/13/20 - 09/11/20 Insurance Information Medicare Setting Treatment Setting Outpatient Care Visit Type Note Type Treatment Note Next Note Type Next Note Type Treatment Note General Information General Information The pt is a 75-yr-old female with long history of Parkinson 's disease. She is familiar to the clinician from previous dysphagia and voice therapy, which ended in May 2019. Per pt/spouse report, the pt acquired aspiration pneumonia shortly after therapy ended and was hospitalized for ~3 wks. She was seen by HH following hospital d/c, and this ended within the last 2 wks. HH therapy primarily targeted increasing the pt's vocal loudness and improving speech intelligibility. Per pt /spouse report, the pt continues with dysphagia symptoms, notably experiencing increased coughing with most sugary foods, which she now avoids. She drinks all liquids from straw to increase independence in feeding. Subjective Identification Type Name,ID Card Others Present Family Observations/Patient Presentation The pt arrived on time accompanied by her who was present initially and at end of session only. He was present for review of HEP tasks. Pt reported increased daily exercise, which was confirmed by . Chief Complaint(s) Speech,Swallowing,Voice Patient Knowledge/Awareness of JEWELRY SORTER Role Excellent in Treatment Parent/Caretake Knowledge/Awareness of Excellent JEWELRY SORTER Role in Treatment Patient/Caregiver Compliance with Home Good Exercise Program Objective Short Term Goals Dysphagia: 1. The pt will follow safe swallow strategies with minimal cuing to reduce risk of aspiration. 2. The pt will perform oral motor and swallow exercises with min cues to improve/ maintain oral integrity for bolus prep, swallow and speech intelligibility. 3. The pt will participate in evaluation of voice and speech intelligiblity to guide POC. Additional goals to be developed pending results. Voice: 1. The pt will sustain /i/ for 15 sec with clear voicing at avg loudness of 60 dB or greater. 2. The pt will perform pitch glide exercises with continuous voicing to increase pitch range and reduce monotone voice. 3. The pt will read sentences of moderate length with continuous voicing and an avg of 60 dB or greater in 80% of opportunities to increase speech intelligibility and ability to communicate effectively. 4. The pt will read sentences structured to vary inflection with 80% acc to increase suprasegmentals of speech and increase speech intelligibility. Oxide Furnace Tender Goals Dysphagia: 1. The pt will comply with daily HEP with min-mod assistance and reminders in order to improve swallow and communication skills. 2. The pt will tolerate least restrictive diet to meet her nutrition and hydration needs. Voice: 1. The pt will read short paragraphs with continuous voicing and an avg of 60 dB or greater in 80% of opportunities to increase speech intelligibility and ability to communicate effectively. 2. The pt will produce speech at 60 dB or greater in short conversations (~5 min) in 70% of opportunities to increase speech intelligibility and ability to communicate effectively. Treatment Activities Consulted RE home practice with pt/spouse. Pt is completing 4 reps x 5 rounds of RMST 1-2x/day. Modified instructions to reflect reps target vs time target (i.e., as many reps as possible in 30 sec) for ease of independent completion. Pt completed RMST via Breather device with resistance settings at Level 2 for inhalation, Level 1 for exhalation. Pt completed 5 reps without difficulty, verbal prompts provided for complete in/exhalation. Increased target reps from 4 to 5 for home practice. Increased resistance to 2.5 for both in/exhalation. Pt able to complete as instructed . Between rounds of RMST, pt completed oral motor and voice exercises. She exhibited frequent wet vocal quality, requiring coughing, which was mostly strong but pt is still unable to expel mucus orally. At one point the pt exhibited difficulty producing volitional cough, resulting in weaker throat clearing. After coughing/clearing however, her voice was significantly clearer and louder during performance of exercises. MPT= 19 sec with 13 sec of strong voicing, better with /o / than with /i/, the latter produced with strained voice consistent with tense nature of vowel. Assessment Patient Response to Treatment Good Rehab Potential Fair Impairments Identified Dysphagia,Parkinson's Disease, Speech Intelligibility,Vocal Quality Progress Towards Goals Slow Progress Assessment of Overall Progress Improving Assessment of Improvement The pt is making progress with RMST exercises, able to increase repetitions and resistance of both inhalation and exhalation. Cough production generally appears to be stronger, though not consistently, yet pt is still unable to expel orally. Voice continues to be frequently wet , indicating ongoing laryngeal penetration of saliva. After cough production, she exhibited noticeably clearer and stronger voice, indicating ongoing potential for increased vocal loudness. The pt has also improved compliance with HEP. Reviewed with Patient Goals,Progress Being Made,Home Exercise Program Patient/Caregiver Understanding Good Plan Amount of Therapy Recommended 3-4 Months Frequency of Treatment Once a Week Length of Session 45 Minutes Treatment Emphasis Next Session Cont RMST, voice & oral-motor exercises Therapeutic Contents Client Education,Expressive Language Training,Home Exercise Program, Intelligibility,Voice Training Provided Patient/Caregiver Instruction Home Exercise Program,Plan of Care,Questions/Concerns Therapy Recommendations Continue with Current Program
--- NOTE | 2020-08-08 13:33 | ST.OPTN ---
Visit Care Team Role Provider Type Hudson Mcmanus MD Attending Provider Physician Primary Care Provider Referring Provider Address: [address] [place] [address], [address], [place], [address] MUSICAL INSTRUMENT MAKER Treatment Note MUSICAL INSTRUMENT MAKER Treatment Note Start: 04/04/20 12:29 Freq: Status: Active Protocol: Document 08/08/20 13:20 GEOVANNI (Rec: 08/08/20 13:33 [email or web address]) Speech Pathology Treatment Note Session Time Visit Start Time 12:30 Visit Stop Time 13:15 Total Visit Minutes 45 Visit Information Visit Number 12/02 Plan of Care Dates 06/13/20 - 09/11/20 Insurance Information Medicare Setting Treatment Setting Outpatient Care Visit Type Note Type Treatment Note Next Note Type Next Note Type Treatment Note General Information General Information The pt is a 75-yr-old female with long history of Parkinson 's disease. She is familiar to the clinician from previous dysphagia and voice therapy, which ended in May 2019. Per pt/spouse report, the pt acquired aspiration pneumonia shortly after therapy ended and was hospitalized for ~3 wks. She was seen by HH following hospital d/c, and this ended within the last 2 wks. HH therapy primarily targeted increasing the pt's vocal loudness and improving speech intelligibility. Per pt /spouse report, the pt continues with dysphagia symptoms, notably experiencing increased coughing with most sugary foods, which she now avoids. She drinks all liquids from straw to increase independence in feeding. Subjective Identification Type Name,ID Card Others Present Family Observations/Patient Presentation The pt arrived on time accompanied by her who was present initially and at end of session only. He was present for review of HEP tasks. Pt reported increased daily exercise, which was confirmed by . Pt also reported increasing hydration, as well as being able to cough up and expel phlegm in the last few days. She reported the phlegm was thick and viscous; hopefully the increased hydration will minimize this. Chief Complaint(s) Speech,Swallowing,Voice Patient Knowledge/Awareness of MUSICAL INSTRUMENT MAKER Role Excellent in Treatment Parent/Caretake Knowledge/Awareness of Excellent MUSICAL INSTRUMENT MAKER Role in Treatment Patient/Caregiver Compliance with Home Good Exercise Program Objective Short Term Goals Dysphagia: 1. The pt will follow safe swallow strategies with minimal cuing to reduce risk of aspiration. 2. The pt will perform oral motor and swallow exercises with min cues to improve/ maintain oral integrity for bolus prep, swallow and speech intelligibility. 3. The pt will participate in evaluation of voice and speech intelligiblity to guide POC. Additional goals to be developed pending results. Voice: 1. The pt will sustain /i/ for 15 sec with clear voicing at avg loudness of 60 dB or greater. 2. The pt will perform pitch glide exercises with continuous voicing to increase pitch range and reduce monotone voice. 3. The pt will read sentences of moderate length with continuous voicing and an avg of 60 dB or greater in 80% of opportunities to increase speech intelligibility and ability to communicate effectively. 4. The pt will read sentences structured to vary inflection with 80% acc to increase suprasegmentals of speech and increase speech intelligibility. Clay Artisan Goals Dysphagia: 1. The pt will comply with daily HEP with min-mod assistance and reminders in order to improve swallow and communication skills. 2. The pt will tolerate least restrictive diet to meet her nutrition and hydration needs. Voice: 1. The pt will read short paragraphs with continuous voicing and an avg of 60 dB or greater in 80% of opportunities to increase speech intelligibility and ability to communicate effectively. 2. The pt will produce speech at 60 dB or greater in short conversations (~5 min) in 70% of opportunities to increase speech intelligibility and ability to communicate effectively. Treatment Activities Skilled education/feedback provided to pt/spouse RE impact of hydration, or lack thereof, on mucus, safety around thin vs thick mucus in the airway, and ease of cough with thinner mucus. Pt verbalized understanding and agreement. Pt completed RMST via Breather device x1 with resistance settings at Level 2.5 for both inhalation and exhalation. Reduced volume and force was noted with exhalation, indicating resistance may be set too high. Modified settings to level 2 for exhalation, and pt was able to complete more effectively. She proceeded to complete an additional 4 rounds of RMST. Between rounds of RMST, pt completed oral motor and voice exercises. She exhibited occ wet vocal quality, which cleared with swallow alone or after throat clear. The pt was observed to cough x1 after a drink of thin liquid; no other coughing occurred during the session. Pt was reminded to use safe swallow strategies with liquid intake to reduce coughing and protect airway. She verbalized understanding but took in no more water during the session. MPT= 15.6 sec on /i/. Pt sustained phonation on /o/ with strained vocal quality. Modified to woh, which reduced strain. Pt completed 6 untimed reps and maintained improved vocal quality. HEP instructions were modified to reflect changes made to tasks in today's session. In conversation, the pt maintained continuous voicing in ~75% of opportunities. Loudness remains low, requiring lip reading from listener. Assessment Patient Response to Treatment Good Rehab Potential Fair Impairments Identified Dysphagia,Parkinson's Disease, Speech Intelligibility,Vocal Quality Progress Towards Goals Slow Progress Assessment of Overall Progress Improving Assessment of Improvement Pt is maintaining good compliance with HEP, per pt/ spouse reports. Reduced wet vocal quality and cough was observed throughout today's session, and reports of ability to expel mucus with cough at home indicates positive response from RMST exercises. This is critical to protecting the pt's airway, especially with progressive nature of her disease. Additionally, although low vocal loudness levels continue to impair pt's speech intelligibility, she did exhibit increased voice production (vs whispering) in today's conversations. Reviewed with Patient Goals,Progress Being Made,Home Exercise Program Patient/Caregiver Understanding Good Plan Amount of Therapy Recommended 3-4 Months Frequency of Treatment Once a Week Length of Session 45 Minutes Treatment Emphasis Next Session Cont RMST, voice & oral-motor exercises Therapeutic Contents Client Education,Expressive Language Training,Home Exercise Program, Intelligibility,Voice Training Provided Patient/Caregiver Instruction Home Exercise Program,Plan of Care,Questions/Concerns Therapy Recommendations Continue with Current Program
--- NOTE | 2020-08-15 17:27 | ST.OPTN ---
Visit Care Team Role Provider Type Hudson Mcmanus MD Attending Provider Physician Primary Care Provider Referring Provider Address: [address] [place] [address], [address], [place], [address] PHLEBOTOMY TECHNOLOGIST Treatment Note PHLEBOTOMY TECHNOLOGIST Treatment Note Start: 04/04/20 12:29 Freq: Status: Active Protocol: Document 08/15/20 18:08 GEOVANNI (Rec: 08/15/20 18:09 GEOVANNI [email or web address]) Speech Pathology Treatment Note Session Time Visit Start Time 13:30 Visit Stop Time 14:15 Total Visit Minutes 45 Visit Information Visit Number 01/02 Plan of Care Dates 06/13/20 - 09/11/20 Insurance Information Medicare Setting Treatment Setting Outpatient Care Visit Type Note Type Treatment Note Next Note Type Next Note Type Treatment Note General Information General Information The pt is a 75-yr-old female with long history of Parkinson 's disease. She is familiar to the clinician from previous dysphagia and voice therapy, which ended in May 2019. Per pt/spouse report, the pt acquired aspiration pneumonia shortly after therapy ended and was hospitalized for ~3 wks. She was seen by HH following hospital d/c, and this ended within the last 2 wks. HH therapy primarily targeted increasing the pt's vocal loudness and improving speech intelligibility. Per pt /spouse report, the pt continues with dysphagia symptoms, notably experiencing increased coughing with most sugary foods, which she now avoids. She drinks all liquids from straw to increase independence in feeding. Subjective Identification Type Name,ID Card Others Present Family Observations/Patient Presentation The pt arrived on time accompanied by her who was present initially and at end of session only. He was present for review of HEP tasks. Pt has been compliant with HEP and feels that RMST exercises are improving her ability to produce voice. Chief Complaint(s) Speech,Swallowing,Voice Patient Knowledge/Awareness of PHLEBOTOMY TECHNOLOGIST Role Excellent in Treatment Parent/Caretake Knowledge/Awareness of Excellent PHLEBOTOMY TECHNOLOGIST Role in Treatment Patient/Caregiver Compliance with Home Good Exercise Program Objective Short Term Goals Dysphagia: 1. The pt will follow safe swallow strategies with minimal cuing to reduce risk of aspiration. 2. The pt will perform oral motor and swallow exercises with min cues to improve/ maintain oral integrity for bolus prep, swallow and speech intelligibility. 3. The pt will participate in evaluation of voice and speech intelligiblity to guide POC. Additional goals to be developed pending results. Voice: 1. The pt will sustain /i/ for 15 sec with clear voicing at avg loudness of 60 dB or greater. 2. The pt will perform pitch glide exercises with continuous voicing to increase pitch range and reduce monotone voice. 3. The pt will read sentences of moderate length with continuous voicing and an avg of 60 dB or greater in 80% of opportunities to increase speech intelligibility and ability to communicate effectively. 4. The pt will read sentences structured to vary inflection with 80% acc to increase suprasegmentals of speech and increase speech intelligibility. Merry Go Round Attendant Goals Dysphagia: 1. The pt will comply with daily HEP with min-mod assistance and reminders in order to improve swallow and communication skills. 2. The pt will tolerate least restrictive diet to meet her nutrition and hydration needs. Voice: 1. The pt will read short paragraphs with continuous voicing and an avg of 60 dB or greater in 80% of opportunities to increase speech intelligibility and ability to communicate effectively. 2. The pt will produce speech at 60 dB or greater in short conversations (~5 min) in 70% of opportunities to increase speech intelligibility and ability to communicate effectively. Treatment Activities Pt's voice was audible throughout the session until conversation in the final minutes. She did exhibit moderate fatigue over the course of the session, reflected in reduced sustained phonation time. MPT = 12 sec with good vocal quality. Voice became strangled thereafter, and trials were discontinued upon such voicing in order to protect the voice. The pt completed 5 sets, 5 reps each, of RMST using The Breather training device (inhalation & exhalation at level 2.5, which continues to be appropriate). Introduced an audio responsive catherine called Speak Up as biofeedback and encouragement for pt to produce loud voice. The pt read functional phrases, making images on the catherine appear in size in sync with the pt's vocal loudness. Images ranged from small to medium sizes on the screen in response to pt's voice. The pt expressed enjoying the catherine, which was recommended for home practice. The pt's voice was noted to be wet/gurgly sounding x2 today, which is a significant decrease as compared to previous sessions. Assessment Patient Response to Treatment Good Rehab Potential Fair Impairments Identified Dysphagia,Parkinson's Disease, Speech Intelligibility,Vocal Quality Progress Towards Goals Slow Progress Assessment of Overall Progress Improving Assessment of Improvement Pt is maintaining good compliance with HEP, per pt/ spouse reports. Significantly reduced wet vocal quality and cough was observed throughout today's session, indicating improved saliva management and airway protection. The pt exhibited much improved continuous voicing in conversation until she became fatigued at the end of the session. At start of session, this PHLEBOTOMY TECHNOLOGIST was able to hear and, with mod effort, understand the pt's speech from ~7' distance in an otherwise quiet and enclosed room, which is a first occurrence. The pt is benefiting well from RMST exercises. Reviewed with Patient Goals,Progress Being Made,Home Exercise Program Patient/Caregiver Understanding Good Plan Amount of Therapy Recommended 3-4 Months Frequency of Treatment Once a Week Length of Session 45 Minutes Treatment Emphasis Next Session Cont RMST, voice & oral-motor exercises Therapeutic Contents Client Education,Expressive Language Training,Home Exercise Program, Intelligibility,Voice Training Provided Patient/Caregiver Instruction Home Exercise Program,Plan of Care,Questions/Concerns Therapy Recommendations Continue with Current Program
--- NOTE | 2020-08-24 10:53 | ST.OPTN ---
Visit Care Team Role Provider Type Hudson Mcmanus MD Attending Provider Physician Primary Care Provider Referring Provider Address: [address] [place] [address], [address], [place], [address] KNOTTER HAND Treatment Note KNOTTER HAND Treatment Note Start: 04/04/20 12:29 Freq: Status: Active Protocol: Document 08/22/20 17:02 GEOVANNI (Rec: 08/22/20 17:02 GEOVANNI [email or web address]) Speech Pathology Treatment Note Session Time Visit Start Time 13:30 Visit Stop Time 14:15 Total Visit Minutes 45 Visit Information Visit Number 02/02 Plan of Care Dates 06/13/20 - 09/11/20 Insurance Information Medicare Setting Treatment Setting Outpatient Care Visit Type Note Type Treatment Note Next Note Type Next Note Type Progress Note General Information General Information The pt is a 75-yr-old female with long history of Parkinson 's disease. She is familiar to the clinician from previous dysphagia and voice therapy, which ended in May 2019. Per pt/spouse report, the pt acquired aspiration pneumonia shortly after therapy ended and was hospitalized for ~3 wks. She was seen by HH following hospital d/c, and this ended within the last 2 wks. HH therapy primarily targeted increasing the pt's vocal loudness and improving speech intelligibility. Per pt /spouse report, the pt continues with dysphagia symptoms, notably experiencing increased coughing with most sugary foods, which she now avoids. She drinks all liquids from straw to increase independence in feeding. Subjective Identification Type Name,ID Card Others Present Family Observations/Patient Presentation The pt arrived on time accompanied by her who was present initially and at end of session only. He was present for review of HEP tasks. Pt has been mostly compliant with HEP with mildly reduced motivation reported this week. Chief Complaint(s) Speech,Swallowing,Voice Patient Knowledge/Awareness of KNOTTER HAND Role Excellent in Treatment Parent/Caretake Knowledge/Awareness of Excellent KNOTTER HAND Role in Treatment Patient/Caregiver Compliance with Home Good Exercise Program Objective Short Term Goals Dysphagia: 1. The pt will follow safe swallow strategies with minimal cuing to reduce risk of aspiration. 2. The pt will perform oral motor and swallow exercises with min cues to improve/ maintain oral integrity for bolus prep, swallow and speech intelligibility. 3. The pt will participate in evaluation of voice and speech intelligiblity to guide POC. Additional goals to be developed pending results. Voice: 1. The pt will sustain /i/ for 15 sec with clear voicing at avg loudness of 60 dB or greater. 2. The pt will perform pitch glide exercises with continuous voicing to increase pitch range and reduce monotone voice. 3. The pt will read sentences of moderate length with continuous voicing and an avg of 60 dB or greater in 80% of opportunities to increase speech intelligibility and ability to communicate effectively. 4. The pt will read sentences structured to vary inflection with 80% acc to increase suprasegmentals of speech and increase speech intelligibility. Supervisor [employer]ings Goals Dysphagia: 1. The pt will comply with daily HEP with min-mod assistance and reminders in order to improve swallow and communication skills. 2. The pt will tolerate least restrictive diet to meet her nutrition and hydration needs. Voice: 1. The pt will read short paragraphs with continuous voicing and an avg of 60 dB or greater in 80% of opportunities to increase speech intelligibility and ability to communicate effectively. 2. The pt will produce speech at 60 dB or greater in short conversations (~5 min) in 70% of opportunities to increase speech intelligibility and ability to communicate effectively. Treatment Activities Consulted with pt on strategies to maintain motivation to complete daily exercises. Pt agreed to establish routine in which she treats herself with yogurt only after completing RMST exercises in the morning. She stated that this would be a good motivation and routine for her. The pt completed 5 rounds of RMST exercises using the Breather resisitance device, initially set at resisitance levels 3 and 2 (inhalation and exhalation, respectively) and increased to levels 3.5 and 2 .5, respectively. The pt was able to complete exercises at the higher levels accurately, demonstrating increased strength of repiratory muscles . In conversation, the pt's voice was mostly audible but required moderate effort on the part of the conversation partner, and occasionally was produced as whisper at start of session. The pt was responsive to verbal prompts to produce audible voice. Using the Speak [employer] SL catherine, which provides visual feedback in response to loudness levels, with a line drawn across the screen as a target for loudness levels, the pt recited syllables, sustained phonation and functional phrases at or above target with 70% acc across 7 tasks. ( Note: Results of Speak Up catherine were at times inconsistent, indicating poor calibration for clinical measurement; nevertheless, the pt was motivated by the catherine and produced increased loudness and consistency of voicing when using the catherine as compared to without catherine use.) By end of session, the pt was speaking with a louder voice and improved intelligibility, requiring min-mod effort from the listener. The pt's voice was clear and easily audible during speech tasks when using the catherine. During sustained phonation, while loudness levels were improved, vocal quality was severely strained. To minimize laryngeal tension, the pt was instructed to produce Ashraf vs Ah and He vs Ee, which significantly improved vocal quality while maintaining loudness. MPT was not measured . The pt required cough/swallow to reduce wet sounding voice x4 in today's session. At one time the pt coughed strongly to clear her voice. Cough was productive; pt reported having expelled mucus to oral cavity prior to swallowing it. This is the first time she has demonstrated or reported being able to expel with such force since SOC. Assessment Patient Response to Treatment Good Rehab Potential Fair Impairments Identified Dysphagia,Parkinson's Disease, Speech Intelligibility,Vocal Quality Progress Towards Goals Slow Progress Assessment of Overall Progress Improving Assessment of Improvement The pt exhibited noteable improvement in vocal loudness and speech intelligibility from start to end of session, demonstrating her reposiveness to exercises and skilled feedback/prompts. She was highly responsive to visual feedback via the Speak Up catherine, despite the catherine's inconsistent responses to loudness levels. While wet sounding voice was increased today as compared the the last few sessions, the pt exhibited cough strength adequate to expel mucus from airway to oral cavity, which she had not been able to do in treatment sessions prior to today. This, as well as the pt 's ability to perform RMST exercises with increased resisitance, demonstrates positive impact of RMST exercises and the importance of continued training. Reviewed with Patient Goals,Progress Being Made,Home Exercise Program Patient/Caregiver Understanding Good Plan Amount of Therapy Recommended 3-4 Months Frequency of Treatment Once a Week Length of Session 45 Minutes Treatment Emphasis Next Session Cont RMST, voice & oral-motor exercises Therapeutic Contents Client Education,Expressive Language Training,Home Exercise Program, Intelligibility,Voice Training Provided Patient/Caregiver Instruction Home Exercise Program,Plan of Care,Questions/Concerns Therapy Recommendations Continue with Current Program
--- NOTE | 2020-09-12 16:17 | ST.OPTN ---
Visit Care Team Role Provider Type Hudson Mcmanus MD Attending Provider Physician Primary Care Provider Referring Provider Address: [address] [place] [address], [address], [place], [address] [employer] Treatment Note [employer] Treatment Note Start: 04/04/20 12:29 Freq: Status: Active Protocol: Document 09/12/20 16:03 GEOVANNI (Rec: 09/12/20 16:17 GEOVANNI [email or web address]) Speech Pathology Treatment Note Session Time Visit Start Time 13:30 Visit Stop Time 14:15 Total Visit Minutes 45 Visit Information Visit Number 03/04 Plan of Care Dates 09/12/20 - 12/12/20 Insurance Information Medicare Setting Treatment Setting Outpatient Care Visit Type Note Type Progress Note Next Note Type Next Note Type Treatment Note General Information General Information The pt is a 75-yr-old female with long history of Parkinson 's disease. She is familiar to the clinician from previous dysphagia and voice therapy, which ended in May 2019. Per pt/spouse report, the pt acquired aspiration pneumonia shortly after therapy ended and was hospitalized for ~3 wks. She was seen by HH following hospital d/c, and this ended within the last 2 wks. HH therapy primarily targeted increasing the pt's vocal loudness and improving speech intelligibility. Per pt /spouse report, the pt continues with dysphagia symptoms, notably experiencing increased coughing with most sugary foods, which she now avoids. She drinks all liquids from straw to increase independence in feeding. Subjective Identification Type Name,ID Card Others Present Family Observations/Patient Presentation The pt arrived on time accompanied by her who was present initially and at end of session only. He was present for review of HEP tasks. Pt has been mostly compliant with HEP, reportedly exercising every other day. Her reported decline in swallow safety, stating that the pt coughs with all diet textures from soft and moist to hard and crumbly. Chief Complaint(s) Speech,Swallowing,Voice Patient Knowledge/Awareness of [employer] Role Excellent in Treatment Parent/Caretake Knowledge/Awareness of Excellent [employer] Role in Treatment Patient/Caregiver Compliance with Home Good Exercise Program Objective Short Term Goals Dysphagia: 1. The pt will follow safe swallow strategies with minimal cuing to reduce risk of aspiration. 2. The pt will perform oral motor and swallow exercises with min cues to improve/ maintain oral integrity for bolus prep, swallow and speech intelligibility. 3. The pt will participate in evaluation of voice and speech intelligiblity to guide POC. Additional goals to be developed pending results. Voice: 1. The pt will sustain /i/ for 15 sec with clear voicing at avg loudness of 60 dB or greater. 2. The pt will perform pitch glide exercises with continuous voicing to increase pitch range and reduce monotone voice. 3. The pt will read sentences of moderate length with continuous voicing and an avg of 60 dB or greater in 80% of opportunities to increase speech intelligibility and ability to communicate effectively. 4. The pt will read sentences structured to vary inflection with 80% acc to increase suprasegmentals of speech and increase speech intelligibility. Jail Goals Dysphagia: 1. The pt will comply with daily HEP with min-mod assistance and reminders in order to improve swallow and communication skills. 2. The pt will tolerate least restrictive diet to meet her nutrition and hydration needs. Voice: 1. The pt will read short paragraphs with continuous voicing and an avg of 60 dB or greater in 80% of opportunities to increase speech intelligibility and ability to communicate effectively. 2. The pt will produce speech at 60 dB or greater in short conversations (~5 min) in 70% of opportunities to increase speech intelligibility and ability to communicate effectively. Treatment Activities Re-trained pt in swallow exercises targeting airway closure and strengthening of base and back of tongue and pharyngeal constrictors to reduce risk of aspiration. Given instructions presented orally with demonstration, the pt completed all exercises with moderate strength exhibited. Using effortful swallow technique, she consumed 5 oz of thin liquid in single sips at a time with no coughing or other s/sx of aspiration. Instruted pt to consume liquids in single sips only, small bites of solids, and use of effortful swallow with all oral intake. She verbalized understanding and agreement. Assessment Patient Response to Treatment Fair Rehab Potential Fair Impairments Identified Dysphagia,Parkinson's Disease, Speech Intelligibility,Vocal Quality Progress Towards Goals Slow Progress Assessment of Overall Progress Improving Assessment of Improvement Over the course of treatment, the pt has made inconstent progress in increasing vocal loudness, although generally speaking with voice now vs whispers, as she has in past. She very much benefits from respiratory muscle strength training (RMST) using a resistance strainer tender. When consistent with home practice, she exhibits noticeably increased vocal loudness and strength of cough. While she continues to have difficulty expelling mucus from airway and pharynx when coughing, she was able to do so once during a treatment session in the last few weeks, which is an important improvement since SOC. Her reports decline in overall swallow function/safety, making continued skilled intervention and RMST medically necessary to reduce risk of aspiration. The pt was responsive to training of swallow exercises today, able to perform all as instructed. She did exhibit moderate weakness or oral and pharyngeal musculature, making these exercises important targets of therapy. While using safe swallow strategies during today's session, the pt consumed 5 oz of thin liquid without overt s /sx of aspiration. Strategies require reinforcement, as the pt has frequently been observed to drink large amounts of liquid at a time, consistently resulting in cough response and, hence, increasing her risk of aspiration. Reviewed with Patient Goals,Progress Being Made,Home Exercise Program Patient/Caregiver Understanding Good Plan Amount of Therapy Recommended 3-4 Months Frequency of Treatment Once a Week Length of Session 45 Minutes Treatment Emphasis Next Session Cont RMST, voice, oral-motor, and swallow exercises/ strategies Therapeutic Contents Client Education,Expressive Language Training,Home Exercise Program, Intelligibility,Voice Training Provided Patient/Caregiver Instruction Home Exercise Program,Plan of Care,Questions/Concerns Therapy Recommendations Continue with Current Program
--- NOTE | 2020-09-19 17:43 | ST.OPTN ---
Visit Care Team Role Provider Type Hudson Mcmanus MD Attending Provider Physician Primary Care Provider Referring Provider Address: [address] [place] [address], [address], [place], [address] [employer] Treatment Note [employer] Treatment Note Start: 04/04/20 12:29 Freq: Status: Active Protocol: Document 09/19/20 17:37 GEOVANNI (Rec: 09/19/20 17:43 GEOVANNI [email or web address]) Speech Pathology Treatment Note Session Time Visit Start Time 13:30 Visit Stop Time 14:15 Total Visit Minutes 45 Visit Information Visit Number 06/04 Plan of Care Dates 09/12/20 - 12/12/20 Insurance Information Medicare Setting Treatment Setting Outpatient Care Visit Type Note Type Treatment Note Next Note Type Next Note Type Treatment Note General Information General Information The pt is a 75-yr-old female with long history of Parkinson 's disease. She is familiar to the clinician from previous dysphagia and voice therapy, which ended in May 2019. Per pt/spouse report, the pt acquired aspiration pneumonia shortly after therapy ended and was hospitalized for ~3 wks. She was seen by HH following hospital d/c, and this ended within the last 2 wks. HH therapy primarily targeted increasing the pt's vocal loudness and improving speech intelligibility. Per pt /spouse report, the pt continues with dysphagia symptoms, notably experiencing increased coughing with most sugary foods, which she now avoids. She drinks all liquids from straw to increase independence in feeding. Subjective Identification Type Name,ID Card Others Present Family Observations/Patient Presentation The pt arrived on time accompanied by her who was present initially and at end of session only. He was present for review of HEP tasks. Pt has been compliant with HEP but expressed feeling overwhelmed and fatigued by the number of exercises to perform. Chief Complaint(s) Speech,Swallowing,Voice Patient Knowledge/Awareness of [employer] Role Excellent in Treatment Parent/Caretake Knowledge/Awareness of Excellent [employer] Role in Treatment Patient/Caregiver Compliance with Home Good Exercise Program Objective Short Term Goals Dysphagia: 1. The pt will follow safe swallow strategies with minimal cuing to reduce risk of aspiration. 2. The pt will perform oral motor and swallow exercises with min cues to improve/ maintain oral integrity for bolus prep, swallow and speech intelligibility. 3. The pt will participate in evaluation of voice and speech intelligiblity to guide POC. Additional goals to be developed pending results. Voice: 1. The pt will sustain /i/ for 15 sec with clear voicing at avg loudness of 60 dB or greater. 2. The pt will perform pitch glide exercises with continuous voicing to increase pitch range and reduce monotone voice. 3. The pt will read sentences of moderate length with continuous voicing and an avg of 60 dB or greater in 80% of opportunities to increase speech intelligibility and ability to communicate effectively. 4. The pt will read sentences structured to vary inflection with 80% acc to increase suprasegmentals of speech and increase speech intelligibility. Fpc Goals Dysphagia: 1. The pt will comply with daily HEP with min-mod assistance and reminders in order to improve swallow and communication skills. 2. The pt will tolerate least restrictive diet to meet her nutrition and hydration needs. Voice: 1. The pt will read short paragraphs with continuous voicing and an avg of 60 dB or greater in 80% of opportunities to increase speech intelligibility and ability to communicate effectively. 2. The pt will produce speech at 60 dB or greater in short conversations (~5 min) in 70% of opportunities to increase speech intelligibility and ability to communicate effectively. Treatment Activities Re-evaluated pt's HEP and eliminated and/or consolidated exercises to better streamline her program. Trained pt in straw task targeting laryngeal elevation. Modified HEP tasks and home practice journal were provided to the pt in writing. Assessed pt's performance of EMST and adjusted Breather device accordingly, increasing resistance of inhalation to levle 4 and reducing exhalation to level 2. The pt performed 5 sets of EMST exercises with min prompts. Her voice throughout the session was quiet, often a whisper or wet sounding, requiring frequent prompts to clear her throat and to speak up. Assessment Patient Response to Treatment Good Rehab Potential Fair Impairments Identified Dysphagia,Parkinson's Disease, Speech Intelligibility,Vocal Quality Progress Towards Goals Slow Progress Assessment of Overall Progress Improving Assessment of Improvement The pt presented with a quieter than normal voice today. She was participatory in re-evaluation of HEP, able to perform straw task for laryngeal elevation, and independently performed EMST. Reviewed with Patient Goals,Progress Being Made,Home Exercise Program Patient/Caregiver Understanding Good Plan Amount of Therapy Recommended 3-4 Months Frequency of Treatment Once a Week Length of Session 45 Minutes Treatment Emphasis Next Session Cont RMST, voice, oral-motor, and swallow exercises/ strategies Therapeutic Contents Client Education,Expressive Language Training,Home Exercise Program, Intelligibility,Voice Training Provided Patient/Caregiver Instruction Home Exercise Program,Plan of Care,Questions/Concerns Therapy Recommendations Continue with Current Program
--- NOTE | 2020-09-26 15:32 | ST.OPTN ---
Visit Care Team Role Provider Type Hudson Mcmanus MD Attending Provider Physician Primary Care Provider Referring Provider Address: [address] [place] [address], [address], [place], [address] COFFEE MACHINE TECHNICIAN Treatment Note COFFEE MACHINE TECHNICIAN Treatment Note Start: 04/04/20 12:29 Freq: Status: Active Protocol: Document 09/26/20 13:48 GEOVANNI (Rec: 09/26/20 13:51 GEOVANNI [email or web address]) Speech Pathology Treatment Note Session Time Visit Start Time 12:30 Visit Stop Time 13:15 Total Visit Minutes 45 Visit Information Visit Number 07/05 Plan of Care Dates 09/12/20 - 12/12/20 Insurance Information Medicare Setting Treatment Setting Outpatient Care Visit Type Note Type Treatment Note Next Note Type Next Note Type Treatment Note General Information General Information The pt is a 75-yr-old female with long history of Parkinson 's disease. She is familiar to the clinician from previous dysphagia and voice therapy, which ended in May 2019. Per pt/spouse report, the pt acquired aspiration pneumonia shortly after therapy ended and was hospitalized for ~3 wks. She was seen by HH following hospital d/c, and this ended within the last 2 wks. HH therapy primarily targeted increasing the pt's vocal loudness and improving speech intelligibility. Per pt /spouse report, the pt continues with dysphagia symptoms, notably experiencing increased coughing with most sugary foods, which she now avoids. She drinks all liquids from straw to increase independence in feeding. Subjective Identification Type Name,ID Card Others Present Family Observations/Patient Presentation The pt arrived on time accompanied by her who was present initially and at end of session only. He was present for review of HEP tasks. Pt reports moderate compliance with HEP. Brought inspiratory spirometer. Chief Complaint(s) Speech,Swallowing,Voice Patient Knowledge/Awareness of COFFEE MACHINE TECHNICIAN Role Excellent in Treatment Parent/Caretake Knowledge/Awareness of Excellent COFFEE MACHINE TECHNICIAN Role in Treatment Patient/Caregiver Compliance with Home Good Exercise Program Objective Short Term Goals Dysphagia: 1. The pt will follow safe swallow strategies with minimal cuing to reduce risk of aspiration. 2. The pt will perform oral motor and swallow exercises with min cues to improve/ maintain oral integrity for bolus prep, swallow and speech intelligibility. 3. The pt will participate in evaluation of voice and speech intelligiblity to guide POC. Additional goals to be developed pending results. Voice: 1. The pt will sustain /i/ for 15 sec with clear voicing at avg loudness of 60 dB or greater. 2. The pt will perform pitch glide exercises with continuous voicing to increase pitch range and reduce monotone voice. 3. The pt will read sentences of moderate length with continuous voicing and an avg of 60 dB or greater in 80% of opportunities to increase speech intelligibility and ability to communicate effectively. 4. The pt will read sentences structured to vary inflection with 80% acc to increase suprasegmentals of speech and increase speech intelligibility. Fpc Goals Dysphagia: 1. The pt will comply with daily HEP with min-mod assistance and reminders in order to improve swallow and communication skills. 2. The pt will tolerate least restrictive diet to meet her nutrition and hydration needs. Voice: 1. The pt will read short paragraphs with continuous voicing and an avg of 60 dB or greater in 80% of opportunities to increase speech intelligibility and ability to communicate effectively. 2. The pt will produce speech at 60 dB or greater in short conversations (~5 min) in 70% of opportunities to increase speech intelligibility and ability to communicate effectively. Treatment Activities Pt completed sustained phonation tasks with strangled sounding voice. Attempted shaping voice using yawn/sigh and visualization techniques to reduce laryngeal tension. Mildly effective. Pt completed spirometry tasks. Reached 900 then reduced to below 250 in 3 subsequent trials. Instructed pt to rest 5-10 sec between reps. Doing this, the pt displaced cartridge to >700 in 8/12 trials. The pt completed RMST exercises via Breather resistance animal trainer supervisor, set at level 2 for exhalation and level 4 for inhalation. Incomplete exhalation perceived in initial trial. Exhalation level reduced to 1/ 5 and pt completed 4 additional sets with improved exhalatory force/duration. Assessment Patient Response to Treatment Good Rehab Potential Fair Impairments Identified Dysphagia,Parkinson's Disease, Speech Intelligibility,Vocal Quality Progress Towards Goals Slow Progress Assessment of Overall Progress Improving Assessment of Improvement The pt continues with quiet voice, reduced speech intelligibility. Unable to understand patient at all in presence of background noise. Cough strength is notably improved since SOC. Pt able to expel mucus from airway to pharynx and swallow. Unable yet to expel to oral cavity. Continues to do well with RMST exercises and showed improved consistency of inspiratory spirometry when given 5-10 second breaks between reps. No breaks required during RMST with Breather device. Reviewed with Patient Goals,Progress Being Made,Home Exercise Program Patient/Caregiver Understanding Good Plan Amount of Therapy Recommended 3-4 Months Frequency of Treatment Once a Week Length of Session 45 Minutes Treatment Emphasis Next Session Cont RMST, voice, oral-motor, and swallow exercises/ strategies Therapeutic Contents Client Education,Expressive Language Training,Home Exercise Program, Intelligibility,Voice Training Provided Patient/Caregiver Instruction Home Exercise Program,Plan of Care,Questions/Concerns Therapy Recommendations Continue with Current Program
--- NOTE | 2020-10-03 16:38 | ST.OPTN ---
Visit Care Team Role Provider Type Hudson Mcmanus MD Attending Provider Physician Primary Care Provider Referring Provider Address: [address] [place] [address], [address], [place], [address] COMBUSTION ANALYST Treatment Note COMBUSTION ANALYST Treatment Note Start: 04/04/20 12:29 Freq: Status: Active Protocol: Document 10/03/20 16:23 GEOVANNI (Rec: 10/03/20 16:38 [email or web address]) Speech Pathology Treatment Note Session Time Visit Start Time 13:30 Visit Stop Time 14:15 Total Visit Minutes 45 Visit Information Visit Number 08/02 Plan of Care Dates 09/12/20 - 12/12/20 Insurance Information Medicare Setting Treatment Setting Outpatient Care Visit Type Note Type Treatment Note Next Note Type Next Note Type Treatment Note General Information General Information The pt is a 75-yr-old female with long history of Parkinson 's disease. She is familiar to the clinician from previous dysphagia and voice therapy, which ended in May 2019. Per pt/spouse report, the pt acquired aspiration pneumonia shortly after therapy ended and was hospitalized for ~3 wks. She was seen by HH following hospital d/c, and this ended within the last 2 wks. HH therapy primarily targeted increasing the pt's vocal loudness and improving speech intelligibility. Per pt /spouse report, the pt continues with dysphagia symptoms, notably experiencing increased coughing with most sugary foods, which she now avoids. She drinks all liquids from straw to increase independence in feeding. Subjective Identification Type Name,ID Card Others Present Family,Additional Therapist Observations/Patient Presentation The pt arrived on time accompanied by her who was present initially and at end of session only. He was present for review of HEP tasks. Pt reports moderate compliance with HEP. Brought inspiratory spirometer and inhaler. The pt was seen after having had PT that morning. She reported being tired and feeling sore in her legs. Also present was a student COMBUSTION ANALYST who observed the session with the pt's verbal permission. Chief Complaint(s) Speech,Swallowing,Voice Patient Knowledge/Awareness of COMBUSTION ANALYST Role Excellent in Treatment Parent/Caretake Knowledge/Awareness of Excellent COMBUSTION ANALYST Role in Treatment Patient/Caregiver Compliance with Home Good Exercise Program Objective Short Term Goals Dysphagia: 1. The pt will follow safe swallow strategies with minimal cuing to reduce risk of aspiration. 2. The pt will perform oral motor and swallow exercises with min cues to improve/ maintain oral integrity for bolus prep, swallow and speech intelligibility. 3. The pt will participate in evaluation of voice and speech intelligiblity to guide POC. Additional goals to be developed pending results. Voice: 1. The pt will sustain /i/ for 15 sec with clear voicing at avg loudness of 60 dB or greater. 2. The pt will perform pitch glide exercises with continuous voicing to increase pitch range and reduce monotone voice. 3. The pt will read sentences of moderate length with continuous voicing and an avg of 60 dB or greater in 80% of opportunities to increase speech intelligibility and ability to communicate effectively. 4. The pt will read sentences structured to vary inflection with 80% acc to increase suprasegmentals of speech and increase speech intelligibility. Halfway Goals Dysphagia: 1. The pt will comply with daily HEP with min-mod assistance and reminders in order to improve swallow and communication skills. 2. The pt will tolerate least restrictive diet to meet her nutrition and hydration needs. Voice: 1. The pt will read short paragraphs with continuous voicing and an avg of 60 dB or greater in 80% of opportunities to increase speech intelligibility and ability to communicate effectively. 2. The pt will produce speech at 60 dB or greater in short conversations (~5 min) in 70% of opportunities to increase speech intelligibility and ability to communicate effectively. Treatment Activities Pt completed sustained phonation tasks with strangled sounding voice, improving in quality with clearing of throat + swallow as well as verbal prompts for increased breath support. Pt completed spirometry tasks. Reached 750 x1 and 500 x3, progressive decline over trials. Frequent breaks were helpful. After initial set of spirometry trials, the pt administered 2 breaths with inhaler to assist opening the airway. No benefit was observed with subsequent spirometry trials. The pt completed RMST exercises via Breather resistance sports medicine trainer, set at level 1.5 for exhalation and level 4 for inhalation. Incomplete exhalation perceived in initial trial. Exhalation level reduced to 1 and inhalation 3.5. Pt completed 3 additional sets with improved exhalatory force /duration. The pt completed diadochokinetic tasks and read functional phrases with mod- max prompts for increased vocal loudness and breaks between to optimize breath support. The pt read phrases to the student COMBUSTION ANALYST, who was unfamiliar with the pt's speech and was sitting ~7' away. Speech intelligibility was 50%, improved with repetition and verbal prompts. Pt consumed thin liquid with significant cough in 1 of 4 trials and mild throat clearing x2. Coughing occurred when the pt took a large sip requiring multiple swallows to manage. She was responsive to verbal prompts for single sips + double swallow. Assessment Patient Response to Treatment Good Rehab Potential Fair Impairments Identified Dysphagia,Parkinson's Disease, Speech Intelligibility,Vocal Quality Progress Towards Goals Slow Progress Assessment of Overall Progress Improving Assessment of Improvement The pt continues with quiet voice, reduced speech intelligibility. Cough strength was adequate for clearing airway. Pt able to expel mucus from airway to pharynx and swallow. Unable yet to expel to oral cavity. Pt tolerates thin liquid in single sips with double swallow. Significant coughing with large sip indicates continued airway compromise likely d/t weakened musculature secondary to PD. Pt exhibited reduced strength to perform RMST and maintain adequate loudness for speech. RMST resistance levels were reduced for optimal performance. This is likely d/ t the pt being tired from earlier exercise. Reviewed with Patient Goals,Progress Being Made,Home Exercise Program Patient/Caregiver Understanding Good Plan Amount of Therapy Recommended 3-4 Months Frequency of Treatment Once a Week Length of Session 45 Minutes Treatment Emphasis Next Session Cont RMST, voice, oral-motor, and swallow exercises/ strategies Therapeutic Contents Client Education,Expressive Language Training,Home Exercise Program, Intelligibility,Voice Training Provided Patient/Caregiver Instruction Home Exercise Program,Plan of Care,Questions/Concerns Therapy Recommendations Continue with Current Program
--- NOTE | 2021-01-15 09:07 | ST.OPDS ---
Visit Care Team Role Provider Type Hudson Mcmanus MD Attending Provider Physician Primary Care Provider Referring Provider Address: [address] [place] [address], [address], [place], [address] WORKER Treatment Note RIGHT OF WAY WORKER Treatment Note Start: 04/04/20 12:29 Freq: Status: Active Protocol: Document 01/15/21 09:05 GEOVANNI (Rec: 01/15/21 09:07 GEOVANNI [email or web address]) Speech Pathology Treatment Note Visit Information Plan of Care Dates 09/12/20 - 12/12/20 Insurance Information Medicare Setting Treatment Setting Acute Care Visit Type Note Type Discharge Summary General Information General Information The pt is a 75-yr-old female with long history of Parkinson 's disease. She is familiar to the clinician from previous dysphagia and voice therapy, which ended in May 2019. Per pt/spouse report, the pt acquired aspiration pneumonia shortly after therapy ended and was hospitalized for ~3 wks. She was seen by HH following hospital d/c, and this ended within the last 2 wks. HH therapy primarily targeted increasing the pt's vocal loudness and improving speech intelligibility. Per pt /spouse report, the pt continues with dysphagia symptoms, notably experiencing increased coughing with most sugary foods, which she now avoids. She drinks all liquids from straw to increase independence in feeding. Subjective Observations/Patient Presentation The pt was hospitalized from November 06- with hip fracture after a fall at home. She underwent surgery and experienced increased dysphagia symptoms post- surgery. She discharged from hospital to SNF for recovery. She is discharged from outpatient services. Chief Complaint(s) Speech,Swallowing,Voice Objective Short Term Goals GOALS NOT MET Dysphagia: 1. The pt will follow safe swallow strategies with minimal cuing to reduce risk of aspiration. 2. The pt will perform oral motor and swallow exercises with min cues to improve/ maintain oral integrity for bolus prep, swallow and speech intelligibility. 3. The pt will participate in evaluation of voice and speech intelligiblity to guide POC. Additional goals to be developed pending results. Voice: 1. The pt will sustain /i/ for 15 sec with clear voicing at avg loudness of 60 dB or greater. 2. The pt will perform pitch glide exercises with continuous voicing to increase pitch range and reduce monotone voice. 3. The pt will read sentences of moderate length with continuous voicing and an avg of 60 dB or greater in 80% of opportunities to increase speech intelligibility and ability to communicate effectively. 4. The pt will read sentences structured to vary inflection with 80% acc to increase suprasegmentals of speech and increase speech intelligibility. Broom Machine Operator Goals GOALS NOT MET Dysphagia: 1. The pt will comply with daily HEP with min-mod assistance and reminders in order to improve swallow and communication skills. 2. The pt will tolerate least restrictive diet to meet her nutrition and hydration needs. Voice: 1. The pt will read short paragraphs with continuous voicing and an avg of 60 dB or greater in 80% of opportunities to increase speech intelligibility and ability to communicate effectively. 2. The pt will produce speech at 60 dB or greater in short conversations (~5 min) in 70% of opportunities to increase speech intelligibility and ability to communicate effectively. Plan Frequency of Treatment No Further Therapy Therapy Recommendations Discharge from Speech Therapy
== END 2021-01-15 13:15 | disposition home or self-care (01) ==
LOC: SP 13:30
PROVIDERS: PCP Internal Medicine; Referring Provider Internal Medicine; Visit Provider Internal Medicine
DX: T17.908S Unspecified foreign body in respiratory tract, part unspecified causing other injury, sequela (principal); R13.19 Other dysphagia; G20 Parkinson's disease
CPT/HCPCS: 92507; 92520; 92526; 92610

== ENCOUNTER → 2020-10-16 15:08 | Outpatient (CLI) | payer MEDICARE, SELFPAY ==
--- NOTE | 2020-10-16 15:09 | DI.RAD.S_ITS ---
PROCEDURE: XR HIP W PEL IF DONE LT 2V INDICATIONS: hip pain TECHNIQUE: AP pelvis and lateral view of the left hip acquired. COMPARISON: [facility], [place], XR HIP W PEL IF DONE LT 2V, 08/19/2019, 16:16. FINDINGS: Bones: Patient is status post left hip arthroplasty, with hardware components in expected positions. No gross hardware loosening or failure. No fracture or dislocation. Soft tissues: Overlying postoperative changes are noted. No suspicious soft tissue densities. IMPRESSION: Stable anatomic left hip alignment. No gross hardware complication. No acute fracture or dislocation. Dictated by: Alex Kolb M.D. on 10/16/2020 at 17:31 Approved by: Alex Kolb M.D. on 10/16/2020 at 17:32
== END ==
PROVIDERS: PCP Internal Medicine; Referring Provider Internal Medicine; Visit Provider Internal Medicine
DX: M25.552 Pain in left hip (principal); G89.29 Other chronic pain; Z87.81 Personal history of (healed) traumatic fracture; Z96.642 Presence of left artificial hip joint
CPT/HCPCS: 73502

== ENCOUNTER 2020-10-27 14:15 | Outpatient (RCR) | payer MEDICARE, SELFPAY ==
--- NOTE | 2020-04-25 15:59 | PT.OIE ---
Current Diagnoses Parkinson's disease (04/25/20) Other abnormalities of gait and mobility (04/25/20) Unspecified foreign body in respiratory tract, part unspecified causing other injury, sequela (04/25/20) History of falling (04/25/20) Past Medical History (Last Reviewed 01/27/20 @ 00:39 by Juancho Griffith DO) Aspiration, chronic pulmonary Dysphagia, neurologic Mild intermittent asthma without complication (01/18/11) Osteoporosis (01/18/11) Parkinson's disease (01/18/11) Past Surgical History (Last Reviewed 01/27/20 @ 00:39 by Juancho Griffith DO) History of surgery Status post hysterectomy with oophorectomy Visit Care Team Role Provider Type Hudson Mcmanus MD Attending Provider Physician Primary Care Provider Referring Provider Specialty: Internal Medicine Address: [address] [place] [address], [facility] Email: [email or web address] Physical Therapy Initial Evaluation PT-OP-A Visit Information Start: 04/25/20 08:10 Freq: Status: Active Protocol: Document 04/25/20 08:11 AMB (Rec: 04/25/20 10:10 AMB [id number]) Out-Patient Physical Therapy Visit Information Visit Information Visit Type Initial Evaluation Visit Start Time 08:11 Visit Stop Time 08:55 Total Visit Minutes 44 Visit Number 1 PT-OP-B Current Condition Start: 04/25/20 08:10 Freq: Status: Active Protocol: Document 04/25/20 08:11 AMB (Rec: 04/25/20 08:32 AMB [id number]) Current Condition History of Current Condition Onset Date Parkinson's Disease diagnosed in 1993 Current Complaints Unsteadiness with independent gait/transfers History of Current Condition Chief complaint of weakness and instability when standing. The patient has progressive parkinson's disease and is primarily taken care of by her . Her speech is quiet and she has a hard time speaking loudly so her does report some information. The patient fell in 2010 and had hip surgery due to a fractured femoral head that has not had an updated x-ray per the 's report since then she does report L sided hip pain and weakness. The patient's helps her transfer to the bed, the recliner, the car, and to the toilet to and from the wheelchair which the patient does help push with but has occasional freezing situations . He does have a caregiver come in once a week. Prior Treatments and Tests Has had PT in the past, currently sees Speech Therapy for swallowing and speech. Deep Brain Stimulator present. Personal Factors Other Personal Factors That May Effect 2 months ago- fell out of Therapy/Recovery chair forward while was driving it, foot caught on threshold. Trying to get out of bed independently has led to falls. thinks he does about 75% of the transfers. PT-OP-D Balance Start: 04/25/20 08:10 Freq: Status: Active Protocol: Document 04/25/20 08:15 AMB (Rec: 04/25/20 15:57 AMB [email or web address]) Balance Tests Other Other Balance Tests Performed Pt requires UE support to maintain standing, tends to lose balance posteriorly with sit to stand PT-OP-G Mobility & Gait Start: 04/25/20 08:10 Freq: Status: Active Protocol: Document 04/25/20 08:15 AMB (Rec: 04/25/20 15:57 AMB [email or web address]) OP Mobility Evaluation Bed Mobility Supine to and from Sit Wale with slow movement Transfers Sit to Stand Wale- loses balance posteriorly Bed to Chair Transfers Pt's assists at baseline- he thinks ModA, but pt is able to do more if given the time to do so. OP Gait Assessment Comments Gait Comments Scissoring gait and Trendelenburg gait with weakness in the hip on the left, worsens with fatigue. Pt ambulated wit 4WW 80 feet PT-OP-J Posture/Palpation/Skin Start: 04/25/20 08:10 Freq: Status: Active Protocol: Document 04/25/20 08:15 AMB (Rec: 04/25/20 15:57 AMB [email or web address]) Posture Evaluation Comments Posture Comments thoracic kyphosis and forward head PT-OP-M Strength Start: 04/25/20 08:10 Freq: Status: Active Protocol: Document 04/25/20 08:15 AMB (Rec: 04/25/20 15:57 AMB [email or web address]) Hip Strength Hip Manual Muscle Testing Right Flexion (L2) 4 Good Extension (S1) 4 Good Abduction 4 Good Left Flexion (L2) 4 Good Extension (S1) 3 Fair Abduction 3- Fair- PT-OP-T Assessment and Plan Start: 04/25/20 08:10 Freq: Status: Active Protocol: Document 04/25/20 08:11 AMB (Rec: 04/25/20 10:10 AMB [id number]) Physical Therapy Assessment Rehab Potential Rehabilitation Potential Fair Evaluation Complexity Number of Personal Factors/Comorbidities 3 or More Number of Body Systems Impaired 4 or More Clinical Presentation at Evaluation Evolving Impairments Impairments Activity Tolerance,Balance, Functional Activities, Functional Mobility,Gait,Pain, ROM,Strength,Transfers Goals Three Impairment Gait Short Term Goal (STG) Elise will ambulate with her 4WW for 1 minute with Wale. STG Duration 4 weeks Nursing Home Goal (LTG) Elise will ambulate with her 4WW without LOB or scissoring gait for 2 minutes. LTG Duration 8 weeks Two Impairment Standing balance Short Term Goal (STG) Patient will be able to stand with 4WW with min A for 1 minutes. STG Duration 4 weeks Shingle Cutter Goal (LTG) Elise will move from sit to stand with Wale without LOB posteriorly. LTG Duration 8 weeks 1 Impairment Transfers wc to mat table/bed Short Term Goal (STG) Patient will be min A with stand pivot transfer from wc to bed in 4-6 weeks. STG Duration 4 weeks Shingle Cutter Goal (LTG) Patient will perform all bed mobility with Wale. LTG Duration 8 weeks Assessment Summary Assessment Elise returns to physical therapy after 3 week hospitlization in July and then home health until October. She and her report that she has had multiple falls, a few out of the bed, and the most recent being out of the wheelchair that he was driving. She is hoping to work on lower extremity strengthening and walking. She is hoping to be independent, but would need at least supervision for safety considering her fall risk, and more likely need Minimum Assist for most transfers. She does have left hip weakness s/p fracture 9 years ago and would benefit from strengthening for this as well . Physical Therapy Plan Frequency and Duration Frequency of Treatment 2x/Week Duration of Treatment 8 weeks Plan of Care Start Date 04/25/20 Plan of Care End Date 06/20/20 Therapeutic Interventions Therapeutic Interventions Balance Training,Gait Training ,Home Exercise Program,Manual Therapy,Neuromuscular Re- education,Self-Care/Home Management,Therapeutic Activities,Therapeutic Exercises Next Visit Focus/Plan Next Note Type Treatment Note Next Visit Plan Gait training and LE strengthening with work on transfer training safety
--- NOTE | 2020-04-25 15:59 | PT.OPPOC ---
Physical, Occupational & Speech Therapy At [facility] Current Diagnoses Parkinson's disease (04/25/20) Other abnormalities of gait and mobility (04/25/20) Unspecified foreign body in respiratory tract, part unspecified causing other injury, sequela (04/25/20) History of falling (04/25/20) Visit Care Team Role Provider Type Hudson Mcmanus MD Attending Provider Physician Primary Care Provider Referring Provider Specialty: Internal Medicine Address: [address] [place] [address], [address], [facility] Email: [email or web address] Plan Of Care PT-OP-T Assessment and Plan Start: 04/25/20 08:10 Freq: Status: Active Protocol: Document 04/25/20 08:11 AMB (Rec: 04/25/20 10:10 AMB [id number]) Physical Therapy Assessment Rehab Potential Rehabilitation Potential Fair Evaluation Complexity Number of Personal Factors/Comorbidities 3 or More Number of Body Systems Impaired 4 or More Clinical Presentation at Evaluation Evolving Impairments Impairments Activity Tolerance,Balance, Functional Activities, Functional Mobility,Gait,Pain, ROM,Strength,Transfers Goals Three Impairment Gait Short Term Goal (STG) Elise will ambulate with her 4WW for 1 minute with Wale. STG Duration 4 weeks Tailer Out Goal (LTG) Elise will ambulate with her 4WW without LOB or scissoring gait for 2 minutes. LTG Duration 8 weeks Two Impairment Standing balance Short Term Goal (STG) Patient will be able to stand with 4WW with min A for 1 minutes. STG Duration 4 weeks Tailer Out Goal (LTG) Elise will move from sit to stand with Wale without LOB posteriorly. LTG Duration 8 weeks 1 Impairment Transfers wc to mat table/bed Short Term Goal (STG) Patient will be min A with stand pivot transfer from wc to bed in 4-6 weeks. STG Duration 4 weeks Jail Goal (LTG) Patient will perform all bed mobility with Wale. LTG Duration 8 weeks Assessment Summary Assessment Elise returns to physical therapy after 3 week hospitlization in July and then home health until October. She and her report that she has had multiple falls, a few out of the bed, and the most recent being out of the wheelchair that he was driving. She is hoping to work on lower extremity strengthening and walking. She is hoping to be independent, but would need at least supervision for safety considering her fall risk, and more likely need Minimum Assist for most transfers. She does have left hip weakness s/p fracture 9 years ago and would benefit from strengthening for this as well . Physical Therapy Plan Frequency and Duration Frequency of Treatment 2x/Week Duration of Treatment 8 weeks Plan of Care Start Date 04/25/20 Plan of Care End Date 06/20/20 Therapeutic Interventions Therapeutic Interventions Balance Training,Gait Training ,Home Exercise Program,Manual Therapy,Neuromuscular Re- education,Self-Care/Home Management,Therapeutic Activities,Therapeutic Exercises Next Visit Focus/Plan Next Note Type Treatment Note Next Visit Plan Gait training and LE strengthening with work on transfer training safety Plan of Care Dates Plan of Care Start Date 04/25/20 Plan of Care End Date 06/20/20 Electronically Signed by: Harriet Colvin, PT 04/25/20 [id number] Please Sign and Return: I have reviewed this Plan of Care and certify that the skilled therapy services above are required to meet the patient?s needs. Physician Signature Date Printed Name and Credentials Clinical Instructor Signature Printed Name and Credentials
--- NOTE | 2020-04-27 15:42 | PT.OTN ---
Current Diagnoses Parkinson's disease (04/27/20) Other abnormalities of gait and mobility (04/27/20) Unspecified foreign body in respiratory tract, part unspecified causing other injury, sequela (04/27/20) History of falling (04/27/20) Physical Therapy Treatment Note PT-OP-A Visit Information Start: 04/25/20 08:10 Freq: Status: Active Protocol: Document 04/27/20 13:30 AMB (Rec: 04/27/20 15:42 AMB [email or web address]) Out-Patient Physical Therapy Visit Information Visit Information Visit Type Treatment Note Visit Start Time 13:32 Visit Stop Time 14:15 Total Visit Minutes 43 Visit Number 2 PT-OP-B Current Condition Start: 04/25/20 08:10 Freq: Status: Active Protocol: Document 04/25/20 08:11 AMB (Rec: 04/25/20 08:32 AMB [id number]) Current Condition History of Current Condition Onset Date Parkinson's Disease diagnosed in 1993 Current Complaints Unsteadiness with independent gait/transfers History of Current Condition Chief complaint of weakness and instability when standing. The patient has progressive parkinson's disease and is primarily taken care of by her . Her speech is quiet and she has a hard time speaking loudly so her does report some information. The patient fell in 2010 and had hip surgery due to a fractured femoral head that has not had an updated x-ray per the 's report since then she does report L sided hip pain and weakness. The patient's helps her transfer to the bed, the recliner, the car, and to the toilet to and from the wheelchair which the patient does help push with but has occasional freezing situations . He does have a caregiver come in once a week. Prior Treatments and Tests Has had PT in the past, currently sees Speech Therapy for swallowing and speech. Deep Brain Stimulator present. Personal Factors Other Personal Factors That May Effect 2 months ago- fell out of Therapy/Recovery chair forward while was driving it, foot caught on threshold. Trying to get out of bed independently has led to falls. thinks he does about 75% of the transfers. PT-OP-C Subjective Start: 04/25/20 08:10 Freq: Status: Active Protocol: Document 04/27/20 13:30 AMB (Rec: 04/27/20 15:42 AMB [email or web address]) OP-PT Subjective Patient Comments Patient Comments Si and her attend PT with her outdoor w/c which does have stiff breaks. PT-OP-D Balance Start: 04/25/20 08:10 Freq: Status: Active Protocol: Document 04/25/20 08:15 AMB (Rec: 04/25/20 15:57 AMB [email or web address]) Balance Tests Other Other Balance Tests Performed Pt requires UE support to maintain standing, tends to lose balance posteriorly with sit to stand PT-OP-G Mobility & Gait Start: 04/25/20 08:10 Freq: Status: Active Protocol: Document 04/25/20 08:15 AMB (Rec: 04/25/20 15:57 AMB [email or web address]) OP Mobility Evaluation Bed Mobility Supine to and from Sit Wale with slow movement Transfers Sit to Stand Wale- loses balance posteriorly Bed to Chair Transfers Pt's assists at baseline- he thinks ModA, but pt is able to do more if given the time to do so. OP Gait Assessment Comments Gait Comments Scissoring gait and Trendelenburg gait with weakness in the hip on the left, worsens with fatigue. Pt ambulated wit 4WW 80 feet PT-OP-J Posture/Palpation/Skin Start: 04/25/20 08:10 Freq: Status: Active Protocol: Document 04/25/20 08:15 AMB (Rec: 04/25/20 15:57 AMB [email or web address]) Posture Evaluation Comments Posture Comments thoracic kyphosis and forward head PT-OP-M Strength Start: 04/25/20 08:10 Freq: Status: Active Protocol: Document 04/25/20 08:15 AMB (Rec: 04/25/20 15:57 AMB [email or web address]) Hip Strength Hip Manual Muscle Testing Right Flexion (L2) 4 Good Extension (S1) 4 Good Abduction 4 Good Left Flexion (L2) 4 Good Extension (S1) 3 Fair Abduction 3- Fair- PT-OP-Q Treatments Start: 04/25/20 08:10 Freq: Status: Active Protocol: Document 04/27/20 13:30 AMB (Rec: 04/27/20 15:42 AMB [email or web address]) Therapeutic Exercises Supine Exercises 2 Supine Exercise Name lower trunk rotation Reps/Minutes 10 1 Supine Exercise Name table top Comments increased hamstring pain TA Pelvic Tilts Supine Exercise Name TA pelvic tilts Reps/Minutes 15x Comments done with breath Standing Exercises 2 Standing Exercise Name sidestepping Reps/Minutes at paralel bars 1 Standing Exercise Name sit to stand Comments with T band around knees Therapeutic Activity Therapeutic Activity 2 Name stand pivot transfer Comments Wale 1 Name bed mobility Comments Min A to roll Mod A sidelying to quadruped PT-OP-T Assessment and Plan Start: 04/25/20 08:10 Freq: Status: Active Protocol: Document 04/27/20 13:30 AMB (Rec: 04/27/20 15:42 AMB [email or web address]) Physical Therapy Assessment Assessment Summary Assessment Si needed ModA to get into quadruped and then felt pain in her posterior thigh,she stated because the legs are different legs. Pt does appear quite short on the left in standing, but in supine just mildly short. Her voice did sound less breathy in supine when working on core stabilization. Physical Therapy Plan Next Visit Focus/Plan Next Note Type Treatment Note Next Visit Plan Gait training and LE strengthening with work on transfer training safety, consider heel lift on the left for pt's short left leg.
--- NOTE | 2020-05-03 12:00 | PT.OTN ---
Current Diagnoses Parkinson's disease (05/03/20) Other abnormalities of gait and mobility (05/03/20) Unspecified foreign body in respiratory tract, part unspecified causing other injury, sequela (05/03/20) History of falling (05/03/20) Physical Therapy Treatment Note PT-OP-A Visit Information Start: 04/25/20 08:10 Freq: Status: Active Protocol: Document 05/03/20 11:00 AMB (Rec: 05/04/20 08:15 AMB [email or web address]) Out-Patient Physical Therapy Visit Information Visit Information Visit Type Treatment Note Visit Start Time 11:00 Visit Stop Time 11:40 Total Visit Minutes 40 Visit Number 3 PT-OP-B Current Condition Start: 04/25/20 08:10 Freq: Status: Active Protocol: Document 04/25/20 08:11 AMB (Rec: 04/25/20 08:32 AMB [id number]) Current Condition History of Current Condition Onset Date Parkinson's Disease diagnosed in 1993 Current Complaints Unsteadiness with independent gait/transfers History of Current Condition Chief complaint of weakness and instability when standing. The patient has progressive parkinson's disease and is primarily taken care of by her . Her speech is quiet and she has a hard time speaking loudly so her does report some information. The patient fell in 2010 and had hip surgery due to a fractured femoral head that has not had an updated x-ray per the 's report since then she does report L sided hip pain and weakness. The patient's helps her transfer to the bed, the recliner, the car, and to the toilet to and from the wheelchair which the patient does help push with but has occasional freezing situations . He does have a caregiver come in once a week. Prior Treatments and Tests Has had PT in the past, currently sees Speech Therapy for swallowing and speech. Deep Brain Stimulator present. Personal Factors Other Personal Factors That May Effect 2 months ago- fell out of Therapy/Recovery chair forward while was driving it, foot caught on threshold. Trying to get out of bed independently has led to falls. thinks he does about 75% of the transfers. PT-OP-C Subjective Start: 04/25/20 08:10 Freq: Status: Active Protocol: Document 05/03/20 11:00 AMB (Rec: 05/04/20 08:15 AMB [email or web address]) OP-PT Subjective Patient Comments Patient Comments No new falls, everything about the same PT-OP-D Balance Start: 04/25/20 08:10 Freq: Status: Active Protocol: Document 04/25/20 08:15 AMB (Rec: 04/25/20 15:57 AMB [email or web address]) Balance Tests Other Other Balance Tests Performed Pt requires UE support to maintain standing, tends to lose balance posteriorly with sit to stand PT-OP-G Mobility & Gait Start: 04/25/20 08:10 Freq: Status: Active Protocol: Document 04/25/20 08:15 AMB (Rec: 04/25/20 15:57 AMB [email or web address]) OP Mobility Evaluation Bed Mobility Supine to and from Sit Wale with slow movement Transfers Sit to Stand Wale- loses balance posteriorly Bed to Chair Transfers Pt's assists at baseline- he thinks ModA, but pt is able to do more if given the time to do so. OP Gait Assessment Comments Gait Comments Scissoring gait and Trendelenburg gait with weakness in the hip on the left, worsens with fatigue. Pt ambulated wit 4WW 80 feet PT-OP-J Posture/Palpation/Skin Start: 04/25/20 08:10 Freq: Status: Active Protocol: Document 04/25/20 08:15 AMB (Rec: 04/25/20 15:57 AMB [email or web address]) Posture Evaluation Comments Posture Comments thoracic kyphosis and forward head PT-OP-M Strength Start: 04/25/20 08:10 Freq: Status: Active Protocol: Document 04/25/20 08:15 AMB (Rec: 04/25/20 15:57 AMB [email or web address]) Hip Strength Hip Manual Muscle Testing Right Flexion (L2) 4 Good Extension (S1) 4 Good Abduction 4 Good Left Flexion (L2) 4 Good Extension (S1) 3 Fair Abduction 3- Fair- PT-OP-Q Treatments Start: 04/25/20 08:10 Freq: Status: Active Protocol: Document 05/03/20 11:00 AMB (Rec: 05/04/20 08:15 AMB [email or web address]) Therapeutic Exercises Supine Exercises 2 Supine Exercise Name lower trunk rotation Reps/Minutes 10 TA Pelvic Tilts Supine Exercise Name TA pelvic tilts Reps/Minutes 15x Comments done with breath Sidelying Exercises 1 Sidelying Exercise Name clamshell Reps/Minutes 30 Comments with and without t band Sitting Exercises 1 Sitting Exercise Name hip ER Reps/Minutes #1 t band Comments 15 Standing Exercises 2 Standing Exercise Name sidestepping Reps/Minutes at paralel bars 1 Standing Exercise Name sit to stand Comments with T band around knees Gait Training Gait Activity 1 Description 4WW walking Comments 100' focus on pelvic stability , trying out new heel lift. CGA- PT-OP-T Assessment and Plan Start: 04/25/20 08:10 Freq: Status: Active Protocol: Document 05/03/20 11:00 AMB (Rec: 05/04/20 08:15 AMB [email or web address]) Physical Therapy Assessment Assessment Summary Assessment Si felt that the 1/4 heel lift was helpful (underneath the LEft leg. Instructed her and her to be more mindful of red cary on her feet while she is getting used to the heel lift and we could give her a thicker lift if she needs it in a week or so. Physical Therapy Plan Next Visit Focus/Plan Next Note Type Treatment Note Next Visit Plan Gait training and LE strengthening with work on transfer training safety, consider heel lift on the left for pt's short left leg.
--- NOTE | 2020-05-05 12:00 | PT.OTN ---
Current Diagnoses Parkinson's disease (05/05/20) Other abnormalities of gait and mobility (05/05/20) Unspecified foreign body in respiratory tract, part unspecified causing other injury, sequela (05/05/20) History of falling (05/05/20) Physical Therapy Treatment Note PT-OP-A Visit Information Start: 04/25/20 08:10 Freq: Status: Active Protocol: Document 05/05/20 11:00 AMB (Rec: 05/05/20 16:02 AMB [email or web address]) Out-Patient Physical Therapy Visit Information Visit Information Visit Type Treatment Note Visit Start Time 11:00 Visit Stop Time 11:45 Total Visit Minutes 45 Visit Number 4 PT-OP-B Current Condition Start: 04/25/20 08:10 Freq: Status: Active Protocol: Document 04/25/20 08:11 AMB (Rec: 04/25/20 08:32 AMB [id number]) Current Condition History of Current Condition Onset Date Parkinson's Disease diagnosed in 1993 Current Complaints Unsteadiness with independent gait/transfers History of Current Condition Chief complaint of weakness and instability when standing. The patient has progressive parkinson's disease and is primarily taken care of by her . Her speech is quiet and she has a hard time speaking loudly so her does report some information. The patient fell in 2010 and had hip surgery due to a fractured femoral head that has not had an updated x-ray per the 's report since then she does report L sided hip pain and weakness. The patient's helps her transfer to the bed, the recliner, the car, and to the toilet to and from the wheelchair which the patient does help push with but has occasional freezing situations . He does have a caregiver come in once a week. Prior Treatments and Tests Has had PT in the past, currently sees Speech Therapy for swallowing and speech. Deep Brain Stimulator present. Personal Factors Other Personal Factors That May Effect 2 months ago- fell out of Therapy/Recovery chair forward while was driving it, foot caught on threshold. Trying to get out of bed independently has led to falls. thinks he does about 75% of the transfers. PT-OP-C Subjective Start: 04/25/20 08:10 Freq: Status: Active Protocol: Document 05/05/20 11:00 AMB (Rec: 05/05/20 16:02 AMB [email or web address]) OP-PT Subjective Patient Comments Patient Comments Has been doing her lying down exercises. PT-OP-D Balance Start: 04/25/20 08:10 Freq: Status: Active Protocol: Document 04/25/20 08:15 AMB (Rec: 04/25/20 15:57 AMB [email or web address]) Balance Tests Other Other Balance Tests Performed Pt requires UE support to maintain standing, tends to lose balance posteriorly with sit to stand PT-OP-G Mobility & Gait Start: 04/25/20 08:10 Freq: Status: Active Protocol: Document 04/25/20 08:15 AMB (Rec: 04/25/20 15:57 AMB [email or web address]) OP Mobility Evaluation Bed Mobility Supine to and from Sit Daxa with slow movement Transfers Sit to Stand Daxa- loses balance posteriorly Bed to Chair Transfers Pt's assists at baseline- he thinks ModA, but pt is able to do more if given the time to do so. OP Gait Assessment Comments Gait Comments Scissoring gait and Trendelenburg gait with weakness in the hip on the left, worsens with fatigue. Pt ambulated wit 4WW 80 feet PT-OP-J Posture/Palpation/Skin Start: 04/25/20 08:10 Freq: Status: Active Protocol: Document 04/25/20 08:15 AMB (Rec: 04/25/20 15:57 AMB [email or web address]) Posture Evaluation Comments Posture Comments thoracic kyphosis and forward head PT-OP-M Strength Start: 04/25/20 08:10 Freq: Status: Active Protocol: Document 04/25/20 08:15 AMB (Rec: 04/25/20 15:57 AMB [email or web address]) Hip Strength Hip Manual Muscle Testing Right Flexion (L2) 4 Good Extension (S1) 4 Good Abduction 4 Good Left Flexion (L2) 4 Good Extension (S1) 3 Fair Abduction 3- Fair- PT-OP-Q Treatments Start: 04/25/20 08:10 Freq: Status: Active Protocol: Document 05/05/20 11:00 AMB (Rec: 05/06/20 08:54 AMB [email or web address]) Gym Equipment Shuttle Recovery Bilateral Squats Resistance 100 Shuttle Recovery Platform Stable Reps/Time 2x10 Therapeutic Exercises Supine Exercises 2 Supine Exercise Name bridges Reps/Minutes 2x7 1 Supine Exercise Name SLR with TA stab Reps/Minutes 2x7 Therapeutic Activity Therapeutic Activity Transfer Sit to Stand Name mat table to 4WW Reps/Minutes 10x throughout treatment Comments pt encouraged to have at least one hand on mat table, vc forward lean with intermittent Daxa to provide more forward weightshift to avoid LOB posterior Gait Training Gait Activity 1 Description 4WW walking Comments 100' focus on pelvic stability , trying out new heel lift. CGA- PT-OP-T Assessment and Plan Start: 04/25/20 08:10 Freq: Status: Active Protocol: Document 05/05/20 11:00 AMB (Rec: 05/06/20 08:54 AMB [email or web address]) Physical Therapy Assessment Assessment Summary Assessment Si feels that the heel lift is helping, encouraged her to wear it one more week, then we can consider increasing the thickness of it. Physical Therapy Plan Next Visit Focus/Plan Next Note Type Treatment Note Next Visit Plan Gait training and LE strengthening with work on transfer training safety, consider heel lift on the left for pt's short left leg.
--- NOTE | 2020-05-10 11:50 | PT.OTN ---
Current Diagnoses Parkinson's disease (05/10/20) Other abnormalities of gait and mobility (05/10/20) Unspecified foreign body in respiratory tract, part unspecified causing other injury, sequela (05/10/20) History of falling (05/10/20) Physical Therapy Treatment Note PT-OP-A Visit Information Start: 04/25/20 08:10 Freq: Status: Active Protocol: Document 05/10/20 11:00 AMB (Rec: 05/10/20 11:50 AMB [id number]) Out-Patient Physical Therapy Visit Information Visit Information Visit Type Treatment Note Visit Start Time 11:00 Visit Stop Time 11:45 Total Visit Minutes 45 Visit Number 5 PT-OP-B Current Condition Start: 04/25/20 08:10 Freq: Status: Active Protocol: Document 04/25/20 08:11 AMB (Rec: 04/25/20 08:32 AMB [id number]) Current Condition History of Current Condition Onset Date Parkinson's Disease diagnosed in 1993 Current Complaints Unsteadiness with independent gait/transfers History of Current Condition Chief complaint of weakness and instability when standing. The patient has progressive parkinson's disease and is primarily taken care of by her . Her speech is quiet and she has a hard time speaking loudly so her does report some information. The patient fell in 2010 and had hip surgery due to a fractured femoral head that has not had an updated x-ray per the 's report since then she does report L sided hip pain and weakness. The patient's helps her transfer to the bed, the recliner, the car, and to the toilet to and from the wheelchair which the patient does help push with but has occasional freezing situations . He does have a caregiver come in once a week. Prior Treatments and Tests Has had PT in the past, currently sees Speech Therapy for swallowing and speech. Deep Brain Stimulator present. Personal Factors Other Personal Factors That May Effect 2 months ago- fell out of Therapy/Recovery chair forward while was driving it, foot caught on threshold. Trying to get out of bed independently has led to falls. thinks he does about 75% of the transfers. PT-OP-C Subjective Start: 04/25/20 08:10 Freq: Status: Active Protocol: Document 05/10/20 11:00 AMB (Rec: 05/10/20 11:50 AMB [id number]) OP-PT Subjective Patient Comments Patient Comments Pt reports R sided hamstring pain today. PT-OP-D Balance Start: 04/25/20 08:10 Freq: Status: Active Protocol: Document 04/25/20 08:15 AMB (Rec: 04/25/20 15:57 AMB [email or web address]) Balance Tests Other Other Balance Tests Performed Pt requires UE support to maintain standing, tends to lose balance posteriorly with sit to stand PT-OP-G Mobility & Gait Start: 04/25/20 08:10 Freq: Status: Active Protocol: Document 04/25/20 08:15 AMB (Rec: 04/25/20 15:57 AMB [email or web address]) OP Mobility Evaluation Bed Mobility Supine to and from Sit Wale with slow movement Transfers Sit to Stand Wale- loses balance posteriorly Bed to Chair Transfers Pt's assists at baseline- he thinks ModA, but pt is able to do more if given the time to do so. OP Gait Assessment Comments Gait Comments Scissoring gait and Trendelenburg gait with weakness in the hip on the left, worsens with fatigue. Pt ambulated wit 4WW 80 feet PT-OP-J Posture/Palpation/Skin Start: 04/25/20 08:10 Freq: Status: Active Protocol: Document 04/25/20 08:15 AMB (Rec: 04/25/20 15:57 AMB [email or web address]) Posture Evaluation Comments Posture Comments thoracic kyphosis and forward head PT-OP-M Strength Start: 04/25/20 08:10 Freq: Status: Active Protocol: Document 04/25/20 08:15 AMB (Rec: 04/25/20 15:57 AMB [email or web address]) Hip Strength Hip Manual Muscle Testing Right Flexion (L2) 4 Good Extension (S1) 4 Good Abduction 4 Good Left Flexion (L2) 4 Good Extension (S1) 3 Fair Abduction 3- Fair- PT-OP-Q Treatments Start: 04/25/20 08:10 Freq: Status: Active Protocol: Document 05/10/20 11:00 AMB (Rec: 05/10/20 11:50 AMB [id number]) Gym Equipment Shuttle Recovery Bilateral Squats Resistance 100 Shuttle Recovery Platform Stable Reps/Time 2x10 Therapeutic Exercises Supine Exercises 2 Supine Exercise Name bridges Reps/Minutes 2x7 1 Supine Exercise Name SLR with TA stab Reps/Minutes 2x7 Comments vc avoid hip adduction Sidelying Exercises 1 Sidelying Exercise Name clamshell Reps/Minutes 30 Comments without t band Sitting Exercises 1 Sitting Exercise Name hip ER Reps/Minutes #3 t band Comments 15 Gait Training Gait Activity 1 Description 4WW walking Comments 100' focus on pelvic stability , trying out new heel lift. CGA- PT-OP-T Assessment and Plan Start: 04/25/20 08:10 Freq: Status: Active Protocol: Document 05/10/20 11:00 AMB (Rec: 05/10/20 11:50 AMB [id number]) Physical Therapy Assessment Assessment Summary Assessment Si tolerated some exercises today, but hamstring pain limited sit to stand. LOB posterior continues to limit independence with that transfer. Physical Therapy Plan Next Visit Focus/Plan Next Note Type Treatment Note Next Visit Plan Gait training and LE strengthening with work on transfer training safety, consider increasing heel lift on the left for pt's short left leg.
--- NOTE | 2020-05-12 12:00 | PT.OTN ---
Current Diagnoses Parkinson's disease (05/12/20) Other abnormalities of gait and mobility (05/12/20) Unspecified foreign body in respiratory tract, part unspecified causing other injury, sequela (05/12/20) History of falling (05/12/20) Physical Therapy Treatment Note PT-OP-A Visit Information Start: 04/25/20 08:10 Freq: Status: Active Protocol: Document 05/12/20 11:00 AMB (Rec: 05/13/20 09:20 AMB [email or web address]) Out-Patient Physical Therapy Visit Information Visit Information Visit Type Treatment Note Visit Start Time 11:00 Visit Stop Time 11:45 Total Visit Minutes 45 Visit Number 6 PT-OP-B Current Condition Start: 04/25/20 08:10 Freq: Status: Active Protocol: Document 04/25/20 08:11 AMB (Rec: 04/25/20 08:32 AMB [id number]) Current Condition History of Current Condition Onset Date Parkinson's Disease diagnosed in 1993 Current Complaints Unsteadiness with independent gait/transfers History of Current Condition Chief complaint of weakness and instability when standing. The patient has progressive parkinson's disease and is primarily taken care of by her . Her speech is quiet and she has a hard time speaking loudly so her does report some information. The patient fell in 2010 and had hip surgery due to a fractured femoral head that has not had an updated x-ray per the 's report since then she does report L sided hip pain and weakness. The patient's helps her transfer to the bed, the recliner, the car, and to the toilet to and from the wheelchair which the patient does help push with but has occasional freezing situations . He does have a caregiver come in once a week. Prior Treatments and Tests Has had PT in the past, currently sees Speech Therapy for swallowing and speech. Deep Brain Stimulator present. Personal Factors Other Personal Factors That May Effect 2 months ago- fell out of Therapy/Recovery chair forward while was driving it, foot caught on threshold. Trying to get out of bed independently has led to falls. thinks he does about 75% of the transfers. PT-OP-C Subjective Start: 04/25/20 08:10 Freq: Status: Active Protocol: Document 05/12/20 11:00 AMB (Rec: 05/13/20 09:20 AMB [email or web address]) OP-PT Subjective Patient Comments Patient Comments Pt reports continuing R sided pain, also reports R achilles pain, not sure if the pain is related PT-OP-D Balance Start: 04/25/20 08:10 Freq: Status: Active Protocol: Document 04/25/20 08:15 AMB (Rec: 04/25/20 15:57 AMB [email or web address]) Balance Tests Other Other Balance Tests Performed Pt requires UE support to maintain standing, tends to lose balance posteriorly with sit to stand PT-OP-G Mobility & Gait Start: 04/25/20 08:10 Freq: Status: Active Protocol: Document 04/25/20 08:15 AMB (Rec: 04/25/20 15:57 AMB [email or web address]) OP Mobility Evaluation Bed Mobility Supine to and from Sit Wale with slow movement Transfers Sit to Stand Wale- loses balance posteriorly Bed to Chair Transfers Pt's assists at baseline- he thinks ModA, but pt is able to do more if given the time to do so. OP Gait Assessment Comments Gait Comments Scissoring gait and Trendelenburg gait with weakness in the hip on the left, worsens with fatigue. Pt ambulated wit 4WW 80 feet PT-OP-J Posture/Palpation/Skin Start: 04/25/20 08:10 Freq: Status: Active Protocol: Document 04/25/20 08:15 AMB (Rec: 04/25/20 15:57 AMB [email or web address]) Posture Evaluation Comments Posture Comments thoracic kyphosis and forward head PT-OP-M Strength Start: 04/25/20 08:10 Freq: Status: Active Protocol: Document 04/25/20 08:15 AMB (Rec: 04/25/20 15:57 AMB [email or web address]) Hip Strength Hip Manual Muscle Testing Right Flexion (L2) 4 Good Extension (S1) 4 Good Abduction 4 Good Left Flexion (L2) 4 Good Extension (S1) 3 Fair Abduction 3- Fair- PT-OP-Q Treatments Start: 04/25/20 08:10 Freq: Status: Active Protocol: Document 05/12/20 11:00 AMB (Rec: 05/13/20 09:20 AMB [email or web address]) Therapeutic Exercises Supine Exercises 5 Supine Exercise Name hip flexion isometric Comments for TA recruitment 3 Supine Exercise Name passive hamstring/calf stretch Reps/Minutes 30x4 1 Supine Exercise Name SLR with TA stab Reps/Minutes 2x7 Comments vc avoid hip adduction TA Pelvic Tilts Supine Exercise Name TA pelvic tilts Reps/Minutes 15x Comments done with breath Sidelying Exercises 1 Sidelying Exercise Name clamshell Reps/Minutes 30 Comments without t band (AROM) Standing Exercises 2 Standing Exercise Name sit<>Stand Comments vc forward lean, Wale x 5 Gait Training Gait Activity 1 Description 4WW walking Comments 150' focus on pelvic stability , trying out new heel lift. CGA- PT-OP-T Assessment and Plan Start: 04/25/20 08:10 Freq: Status: Active Protocol: Document 05/12/20 11:00 AMB (Rec: 05/13/20 09:20 AMB [email or web address]) Physical Therapy Assessment Goals Three Impairment Gait Short Term Goal (STG) Elise will ambulate with her 4WW for 1 minute with Wale. STG Duration MET Chair Upholsterer Goal (LTG) Elise will ambulate with her 4WW without LOB or scissoring gait for 2 minutes. LTG Duration 8 weeks Two Impairment Standing balance Short Term Goal (STG) Patient will be able to stand with 4WW with min A for 1 minutes. STG Duration 4 weeks Chair Upholsterer Goal (LTG) Elise will move from sit to stand with Wale without LOB posteriorly. LTG Duration 8 weeks 1 Impairment Transfers wc to mat table/bed Short Term Goal (STG) Patient will be min A with stand pivot transfer from wc to bed in 4-6 weeks. STG Duration 4 weeks Retirement Goal (LTG) Patient will perform all bed mobility with Wale. LTG Duration 8 weeks Assessment Summary Assessment Pt with negative slump test, but started discussion of whether hamstring pain is really hamstring pain or is more nerve compression, asked to continut to monitor and see if there is a correlation between pain at ischial tuberosity and pain at achilles. Physical Therapy Plan Next Visit Focus/Plan Next Note Type Treatment Note Next Visit Plan Gait training and LE strengthening with work on transfer training (sit to stand) safety. follow up on R sided LE pain.
--- NOTE | 2020-05-24 12:46 | PT.OTN ---
Current Diagnoses Parkinson's disease (05/24/20) Other abnormalities of gait and mobility (05/24/20) Unspecified foreign body in respiratory tract, part unspecified causing other injury, sequela (05/24/20) History of falling (05/24/20) Physical Therapy Treatment Note PT-OP-A Visit Information Start: 04/25/20 08:10 Freq: Status: Active Protocol: Document 05/24/20 12:33 MA (Rec: 05/24/20 12:46 MA [email or web address]) Out-Patient Physical Therapy Visit Information Visit Information Visit Type Treatment Note Visit Start Time 11:47 Visit Stop Time 12:30 Total Visit Minutes 43 Visit Number 7 Number of LOSS PREVENTION LEAD Visits 1 Precautions Precautions Partial hip replacement in 2010, fall risk PT-OP-B Current Condition Start: 04/25/20 08:10 Freq: Status: Active Protocol: Document 04/25/20 08:11 AMB (Rec: 04/25/20 08:32 AMB [id number]) Current Condition History of Current Condition Onset Date Parkinson's Disease diagnosed in 1993 Current Complaints Unsteadiness with independent gait/transfers History of Current Condition Chief complaint of weakness and instability when standing. The patient has progressive parkinson's disease and is primarily taken care of by her . Her speech is quiet and she has a hard time speaking loudly so her does report some information. The patient fell in 2010 and had hip surgery due to a fractured femoral head that has not had an updated x-ray per the 's report since then she does report L sided hip pain and weakness. The patient's helps her transfer to the bed, the recliner, the car, and to the toilet to and from the wheelchair which the patient does help push with but has occasional freezing situations . He does have a caregiver come in once a week. Prior Treatments and Tests Has had PT in the past, currently sees Speech Therapy for swallowing and speech. Deep Brain Stimulator present. Personal Factors Other Personal Factors That May Effect 2 months ago- fell out of Therapy/Recovery chair forward while was driving it, foot caught on threshold. Trying to get out of bed independently has led to falls. thinks he does about 75% of the transfers. PT-OP-C Subjective Start: 04/25/20 08:10 Freq: Status: Active Protocol: Document 05/24/20 12:33 MA (Rec: 05/24/20 12:46 MA [email or web address]) OP-PT Subjective Patient Comments Patient Comments Pt reports constant RLE pain. reports pt is moving slower today than usual PT-OP-D Balance Start: 04/25/20 08:10 Freq: Status: Active Protocol: Document 04/25/20 08:15 AMB (Rec: 04/25/20 15:57 AMB [email or web address]) Balance Tests Other Other Balance Tests Performed Pt requires UE support to maintain standing, tends to lose balance posteriorly with sit to stand PT-OP-G Mobility & Gait Start: 04/25/20 08:10 Freq: Status: Active Protocol: Document 04/25/20 08:15 AMB (Rec: 04/25/20 15:57 AMB [email or web address]) OP Mobility Evaluation Bed Mobility Supine to and from Sit Wale with slow movement Transfers Sit to Stand Wale- loses balance posteriorly Bed to Chair Transfers Pt's assists at baseline- he thinks ModA, but pt is able to do more if given the time to do so. OP Gait Assessment Comments Gait Comments Scissoring gait and Trendelenburg gait with weakness in the hip on the left, worsens with fatigue. Pt ambulated wit 4WW 80 feet PT-OP-J Posture/Palpation/Skin Start: 04/25/20 08:10 Freq: Status: Active Protocol: Document 04/25/20 08:15 AMB (Rec: 04/25/20 15:57 AMB [email or web address]) Posture Evaluation Comments Posture Comments thoracic kyphosis and forward head PT-OP-M Strength Start: 04/25/20 08:10 Freq: Status: Active Protocol: Document 04/25/20 08:15 AMB (Rec: 04/25/20 15:57 AMB [email or web address]) Hip Strength Hip Manual Muscle Testing Right Flexion (L2) 4 Good Extension (S1) 4 Good Abduction 4 Good Left Flexion (L2) 4 Good Extension (S1) 3 Fair Abduction 3- Fair- PT-OP-Q Treatments Start: 04/25/20 08:10 Freq: Status: Active Protocol: Document 05/24/20 12:33 MA (Rec: 05/24/20 12:46 MA [email or web address]) Therapeutic Exercises Supine Exercises TA Pelvic Tilts Supine Exercise Name TA pelvic tilts Reps/Minutes 10x Comments done with breath Sitting Exercises 1 Sitting Exercise Name clamshell Reps/Minutes 2x10 Comments no resistance Standing Exercises 2 Standing Exercise Name sit<>Stand Reps/Minutes x5 Comments vc forward lean, Wale x 5 Therapeutic Activity Therapeutic Activity 2 Name stand pivot transfer Reps/Minutes x4 Comments b/w wheelchair and plinth 1 Name Bed mobility Reps/Minutes x2 Comments Rolling side to side Manual Therapy Treatment Soft Tissue Mobilization HS Body Location R>L Mobilization Type Strumming Intensity/Depth Moderate Body Position Hooklying Comments HS splaying with LE up on therapists shd Adductors Body Location R>L Mobilization Type Rolling,Sustained Pressure, Trigger Point Release Intensity/Depth Moderate Body Position Supine Comments LE ER PT-OP-T Assessment and Plan Start: 04/25/20 08:10 Freq: Status: Active Protocol: Document 05/24/20 12:33 MA (Rec: 05/24/20 12:46 MA [email or web address]) Physical Therapy Assessment Goals Three Impairment Gait Short Term Goal (STG) Elise will ambulate with her 4WW for 1 minute with Wale. STG Duration MET Rotor Assembler Goal (LTG) Elise will ambulate with her 4WW without LOB or scissoring gait for 2 minutes. LTG Duration 8 weeks Two Impairment Standing balance Short Term Goal (STG) Patient will be able to stand with 4WW with min A for 1 minutes. STG Duration 4 weeks Rotor Assembler Goal (LTG) Elise will move from sit to stand with Wale without LOB posteriorly. LTG Duration 8 weeks 1 Impairment Transfers wc to mat table/bed Short Term Goal (STG) Patient will be min A with stand pivot transfer from wc to bed in 4-6 weeks. STG Duration 4 weeks Assisted Goal (LTG) Patient will perform all bed mobility with Wale. LTG Duration 8 weeks Assessment Summary Assessment Pt arrived stating she now has constant RLE pain, pointing to medial side of RLE. Performed STM of HS and adductors R>L. Demonstrated using rolling pin with stating they have different massage rollers at home he can try. Performed sit<>stands from WC and transfers from WC to large high/low table with pt pushing posteriorly but flexing fwd with upper body. Cues for thoracic extension once standing working on balancing once standing for 10 sec before sitting back down. Pt needing min A for sit<> stands today and Mod-Max A for transfers. Pt tends to drag RLE with saying she feels unbalance if she stands only on the LLE so she doesn't fully lift RLE to feel safer. Physical Therapy Plan Frequency and Duration Frequency of Treatment 2x/Week Duration of Treatment 8 weeks Plan of Care Start Date 04/25/20 Plan of Care End Date 06/20/20 Therapeutic Interventions Therapeutic Interventions Balance Training,Gait Training ,Home Exercise Program,Manual Therapy,Neuromuscular Re- education,Self-Care/Home Management,Therapeutic Activities,Therapeutic Exercises Next Visit Focus/Plan Next Note Type Treatment Note Next Visit Plan Check how using massage roller on R adductors & HS felt for pt and if RLE pain decreased. Continue STM adding calf/ achilles STM. Gait training and LE strengthening with work on transfer training (sit to stand) safety.
--- NOTE | 2020-05-30 16:00 | PT.OTN ---
Current Diagnoses Parkinson's disease (05/30/20) Other abnormalities of gait and mobility (05/30/20) Unspecified foreign body in respiratory tract, part unspecified causing other injury, sequela (05/30/20) History of falling (05/30/20) Physical Therapy Treatment Note PT-OP-A Visit Information Start: 04/25/20 08:10 Freq: Status: Active Protocol: Document 05/30/20 14:15 AMB (Rec: 05/30/20 16:00 AMB [id number]) Out-Patient Physical Therapy Visit Information Visit Information Visit Type Treatment Note Visit Start Time 14:20 Visit Stop Time 15:00 Total Visit Minutes 40 Visit Number 8 PT-OP-B Current Condition Start: 04/25/20 08:10 Freq: Status: Active Protocol: Document 04/25/20 08:11 AMB (Rec: 04/25/20 08:32 AMB [id number]) Current Condition History of Current Condition Onset Date Parkinson's Disease diagnosed in 1993 Current Complaints Unsteadiness with independent gait/transfers History of Current Condition Chief complaint of weakness and instability when standing. The patient has progressive parkinson's disease and is primarily taken care of by her . Her speech is quiet and she has a hard time speaking loudly so her does report some information. The patient fell in 2010 and had hip surgery due to a fractured femoral head that has not had an updated x-ray per the 's report since then she does report L sided hip pain and weakness. The patient's helps her transfer to the bed, the recliner, the car, and to the toilet to and from the wheelchair which the patient does help push with but has occasional freezing situations . He does have a caregiver come in once a week. Prior Treatments and Tests Has had PT in the past, currently sees Speech Therapy for swallowing and speech. Deep Brain Stimulator present. Personal Factors Other Personal Factors That May Effect 2 months ago- fell out of Therapy/Recovery chair forward while was driving it, foot caught on threshold. Trying to get out of bed independently has led to falls. thinks he does about 75% of the transfers. PT-OP-C Subjective Start: 04/25/20 08:10 Freq: Status: Active Protocol: Document 05/30/20 14:15 AMB (Rec: 05/30/20 16:00 AMB [id number]) OP-PT Subjective Patient Comments Patient Comments Pt states hamstring pain is better, they replaced her w/c cushion and that helped significantly. Did have a fall in the bathroom from a high shower chair directly onto her buttocks. PT-OP-D Balance Start: 04/25/20 08:10 Freq: Status: Active Protocol: Document 04/25/20 08:15 AMB (Rec: 04/25/20 15:57 AMB [email or web address]) Balance Tests Other Other Balance Tests Performed Pt requires UE support to maintain standing, tends to lose balance posteriorly with sit to stand PT-OP-G Mobility & Gait Start: 04/25/20 08:10 Freq: Status: Active Protocol: Document 04/25/20 08:15 AMB (Rec: 04/25/20 15:57 AMB [email or web address]) OP Mobility Evaluation Bed Mobility Supine to and from Sit Wale with slow movement Transfers Sit to Stand Wale- loses balance posteriorly Bed to Chair Transfers Pt's assists at baseline- he thinks ModA, but pt is able to do more if given the time to do so. OP Gait Assessment Comments Gait Comments Scissoring gait and Trendelenburg gait with weakness in the hip on the left, worsens with fatigue. Pt ambulated wit 4WW 80 feet PT-OP-J Posture/Palpation/Skin Start: 04/25/20 08:10 Freq: Status: Active Protocol: Document 04/25/20 08:15 AMB (Rec: 04/25/20 15:57 AMB [email or web address]) Posture Evaluation Comments Posture Comments thoracic kyphosis and forward head PT-OP-M Strength Start: 04/25/20 08:10 Freq: Status: Active Protocol: Document 04/25/20 08:15 AMB (Rec: 04/25/20 15:57 AMB [email or web address]) Hip Strength Hip Manual Muscle Testing Right Flexion (L2) 4 Good Extension (S1) 4 Good Abduction 4 Good Left Flexion (L2) 4 Good Extension (S1) 3 Fair Abduction 3- Fair- PT-OP-Q Treatments Start: 04/25/20 08:10 Freq: Status: Active Protocol: Document 05/30/20 14:15 AMB (Rec: 05/30/20 16:00 AMB [id number]) Gym Equipment Shuttle Recovery Unilateral Squats Details 50 Reps/Time 10 ea cues for alignment avoiding valgus Bilateral Squats Resistance 100 Shuttle Recovery Platform Stable Reps/Time 2x10 Therapeutic Exercises Sidelying Exercises 1 Sidelying Exercise Name clamshell Reps/Minutes 30 Comments without t band (AROM) Sitting Exercises 1 Sitting Exercise Name clamshell Reps/Minutes 2x10 Comments #2 band Standing Exercises 2 Standing Exercise Name sit<>Stand Reps/Minutes x5 Comments vc forward lean, Wale x 5 1 Standing Exercise Name upright standing Comments standing with even weightbearing, facilitate thoracic ext Gait Training Gait Activity 1 Description 4WW walking Comments 150' focus on pelvic stability , CGA-encouraged heel strike on the R PT-OP-T Assessment and Plan Start: 04/25/20 08:10 Freq: Status: Active Protocol: Document 05/30/20 14:15 AMB (Rec: 05/30/20 16:00 AMB [id number]) Physical Therapy Assessment Goals Three Impairment Gait Short Term Goal (STG) Elise will ambulate with her 4WW for 1 minute with Wale. STG Duration MET [facility] Goal (LTG) Elise will ambulate with her 4WW without LOB or scissoring gait for 2 minutes. LTG Duration 8 weeks Two Impairment Standing balance Short Term Goal (STG) Patient will be able to stand with 4WW with min A for 1 minutes. STG Duration 4 weeks Windshield Repair Technician Goal (LTG) Elise will move from sit to stand with Wale without LOB posteriorly. LTG Duration 8 weeks 1 Impairment Transfers wc to mat table/bed Short Term Goal (STG) Patient will be min A with stand pivot transfer from wc to bed in 4-6 weeks. STG Duration 4 weeks [facility] Goal (LTG) Patient will perform all bed mobility with Wale. LTG Duration 8 weeks Assessment Summary Assessment Elise's pain is better today after recovering from fall and replacing w/c seat. has been using roller, pt not sure if it helps much. Did have gluteal pain today, but thinks that is from recent fall. Physical Therapy Plan Next Visit Focus/Plan Next Note Type Treatment Note Next Visit Plan Continue strengthening with continued attention to R sided LE pain, although it does seem to be changing
--- NOTE | 2020-06-02 12:05 | PT.OTN ---
Current Diagnoses Parkinson's disease (06/02/20) Other abnormalities of gait and mobility (06/02/20) Unspecified foreign body in respiratory tract, part unspecified causing other injury, sequela (06/02/20) History of falling (06/02/20) Physical Therapy Treatment Note PT-OP-A Visit Information Start: 04/25/20 08:10 Freq: Status: Active Protocol: Document 06/02/20 12:14 MA (Rec: 06/02/20 12:26 MA [email or web address]) Out-Patient Physical Therapy Visit Information Visit Information Visit Type Treatment Note Visit Start Time 11:18 Visit Stop Time 12:00 Total Visit Minutes 42 Visit Number 9 Number of CHIEF QUALITY OFFICER Visits 1 Precautions Precautions Partial hip replacement in 2010, fall risk PT-OP-B Current Condition Start: 04/25/20 08:10 Freq: Status: Active Protocol: Document 04/25/20 08:11 AMB (Rec: 04/25/20 08:32 AMB [id number]) Current Condition History of Current Condition Onset Date Parkinson's Disease diagnosed in 1993 Current Complaints Unsteadiness with independent gait/transfers History of Current Condition Chief complaint of weakness and instability when standing. The patient has progressive parkinson's disease and is primarily taken care of by her . Her speech is quiet and she has a hard time speaking loudly so her does report some information. The patient fell in 2010 and had hip surgery due to a fractured femoral head that has not had an updated x-ray per the 's report since then she does report L sided hip pain and weakness. The patient's helps her transfer to the bed, the recliner, the car, and to the toilet to and from the wheelchair which the patient does help push with but has occasional freezing situations . He does have a caregiver come in once a week. Prior Treatments and Tests Has had PT in the past, currently sees Speech Therapy for swallowing and speech. Deep Brain Stimulator present. Personal Factors Other Personal Factors That May Effect 2 months ago- fell out of Therapy/Recovery chair forward while was driving it, foot caught on threshold. Trying to get out of bed independently has led to falls. thinks he does about 75% of the transfers. PT-OP-C Subjective Start: 04/25/20 08:10 Freq: Status: Active Protocol: Document 01/08/21 12:14 MA (Rec: 06/02/20 12:26 MA [email or web address]) OP-PT Subjective Patient Comments Patient Comments Pt states she has been pushing into her leg with her hands to perform self-STM. Her and her only tried the roller once at home and she didn't think it helped that much. PT-OP-D Balance Start: 04/25/20 08:10 Freq: Status: Active Protocol: Document 04/25/20 08:15 AMB (Rec: 04/25/20 15:57 AMB [email or web address]) Balance Tests Other Other Balance Tests Performed Pt requires UE support to maintain standing, tends to lose balance posteriorly with sit to stand PT-OP-G Mobility & Gait Start: 04/25/20 08:10 Freq: Status: Active Protocol: Document 04/25/20 08:15 AMB (Rec: 04/25/20 15:57 AMB [email or web address]) OP Mobility Evaluation Bed Mobility Supine to and from Sit Wale with slow movement Transfers Sit to Stand Wale- loses balance posteriorly Bed to Chair Transfers Pt's assists at baseline- he thinks ModA, but pt is able to do more if given the time to do so. OP Gait Assessment Comments Gait Comments Scissoring gait and Trendelenburg gait with weakness in the hip on the left, worsens with fatigue. Pt ambulated wit 4WW 80 feet PT-OP-J Posture/Palpation/Skin Start: 04/25/20 08:10 Freq: Status: Active Protocol: Document 04/25/20 08:15 AMB (Rec: 04/25/20 15:57 AMB [email or web address]) Posture Evaluation Comments Posture Comments thoracic kyphosis and forward head PT-OP-M Strength Start: 04/25/20 08:10 Freq: Status: Active Protocol: Document 04/25/20 08:15 AMB (Rec: 04/25/20 15:57 AMB [email or web address]) Hip Strength Hip Manual Muscle Testing Right Flexion (L2) 4 Good Extension (S1) 4 Good Abduction 4 Good Left Flexion (L2) 4 Good Extension (S1) 3 Fair Abduction 3- Fair- PT-OP-Q Treatments Start: 04/25/20 08:10 Freq: Status: Active Protocol: Document 06/02/20 12:14 MA (Rec: 06/02/20 12:26 MA [email or web address]) Gym Equipment Shuttle Recovery Bilateral Squats Resistance 100 Shuttle Recovery Platform Stable Reps/Time 2x10 Therapeutic Exercises Standing Exercises 2 Standing Exercise Name sit<>Stand Reps/Minutes x5 Comments vc forward lean, Wale x 5 Gait Training Gait Activity 1 Description 4WW walking Distance/Duration 2x75 feet Comments encouraged heel strike on R; focused on not adducting RLE and keeping pelvis stable. Manual Therapy Treatment Soft Tissue Mobilization HS Body Location HS and quads Mobilization Type Rolling,Sustained Pressure, Trigger Point Release Intensity/Depth Moderate Body Position Hooklying Adductors Body Location R>L Mobilization Type Rolling,Sustained Pressure, Trigger Point Release Intensity/Depth Moderate Body Position Supine Comments LE ER Manual Techniques PROM Type stretching adductors Body Position Supine Reps/Duration 2 min PT-OP-T Assessment and Plan Start: 04/25/20 08:10 Freq: Status: Active Protocol: Document 06/02/20 12:14 MA (Rec: 06/02/20 12:26 MA [email or web address]) Physical Therapy Assessment Goals Three Impairment Gait Short Term Goal (STG) Elise will ambulate with her 4WW for 1 minute with Wale. STG Duration MET Half-Way Goal (LTG) Elise will ambulate with her 4WW without LOB or scissoring gait for 2 minutes. LTG Duration 8 weeks Two Impairment Standing balance Short Term Goal (STG) Patient will be able to stand with 4WW with min A for 1 minutes. STG Duration 4 weeks Commissary Worker Goal (LTG) Elise will move from sit to stand with Wale without LOB posteriorly. LTG Duration 8 weeks 1 Impairment Transfers wc to mat table/bed Short Term Goal (STG) Patient will be min A with stand pivot transfer from wc to bed in 4-6 weeks. STG Duration 4 weeks Half-Way Goal (LTG) Patient will perform all bed mobility with Wale. LTG Duration 8 weeks Assessment Summary Assessment Pt was tender to palpation along adductors, quads, and ITB R>L. Worked on passive stretching of adductors with pt increasing ROM after STM. Pt did better with heel strike on RLE during gait today. She continues to adduct RLE while walking and needs cues to keep pelvis stable . Physical Therapy Plan Frequency and Duration Frequency of Treatment 2x/Week Duration of Treatment 8 weeks Plan of Care Start Date 04/25/20 Plan of Care End Date 06/20/20 Next Visit Focus/Plan Next Note Type Treatment Note Next Visit Plan See how R side pain felt after stretching during last treatment session. Work on strengthening LEs, gait training with 4WW and bed mobility.
--- NOTE | 2020-06-05 15:58 | PT.OTN ---
Current Diagnoses Parkinson's disease (06/05/20) Other abnormalities of gait and mobility (06/05/20) Unspecified foreign body in respiratory tract, part unspecified causing other injury, sequela (06/05/20) History of falling (06/05/20) Physical Therapy Treatment Note PT-OP-A Visit Information Start: 04/25/20 08:10 Freq: Status: Active Protocol: Document 06/05/20 12:45 AMB (Rec: 06/05/20 15:54 AMB [id number]) Out-Patient Physical Therapy Visit Information Visit Information Visit Type Progress Note Visit Start Time 12:45 Visit Stop Time 13:25 Total Visit Minutes 40 Visit Number 10 PT-OP-B Current Condition Start: 04/25/20 08:10 Freq: Status: Active Protocol: Document 04/25/20 08:11 AMB (Rec: 04/25/20 08:32 AMB [id number]) Current Condition History of Current Condition Onset Date Parkinson's Disease diagnosed in 1993 Current Complaints Unsteadiness with independent gait/transfers History of Current Condition Chief complaint of weakness and instability when standing. The patient has progressive parkinson's disease and is primarily taken care of by her . Her speech is quiet and she has a hard time speaking loudly so her does report some information. The patient fell in 2010 and had hip surgery due to a fractured femoral head that has not had an updated x-ray per the 's report since then she does report L sided hip pain and weakness. The patient's helps her transfer to the bed, the recliner, the car, and to the toilet to and from the wheelchair which the patient does help push with but has occasional freezing situations . He does have a caregiver come in once a week. Prior Treatments and Tests Has had PT in the past, currently sees Speech Therapy for swallowing and speech. Deep Brain Stimulator present. Personal Factors Other Personal Factors That May Effect 2 months ago- fell out of Therapy/Recovery chair forward while was driving it, foot caught on threshold. Trying to get out of bed independently has led to falls. thinks he does about 75% of the transfers. PT-OP-C Subjective Start: 04/25/20 08:10 Freq: Status: Active Protocol: Document 06/05/20 12:45 AMB (Rec: 06/05/20 15:54 AMB [id number]) OP-PT Subjective Patient Comments Patient Comments Elise continues to have R sided leg pain, that is worst with sitting. She felt that the stretching increased the pain for a bit on the R, but did feel good on the L. PT-OP-D Balance Start: 04/25/20 08:10 Freq: Status: Active Protocol: Document 04/25/20 08:15 AMB (Rec: 04/25/20 15:57 AMB [email or web address]) Balance Tests Other Other Balance Tests Performed Pt requires UE support to maintain standing, tends to lose balance posteriorly with sit to stand PT-OP-G Mobility & Gait Start: 04/25/20 08:10 Freq: Status: Active Protocol: Document 04/25/20 08:15 AMB (Rec: 04/25/20 15:57 AMB [email or web address]) OP Mobility Evaluation Bed Mobility Supine to and from Sit Wale with slow movement Transfers Sit to Stand Wale- loses balance posteriorly Bed to Chair Transfers Pt's assists at baseline- he thinks ModA, but pt is able to do more if given the time to do so. OP Gait Assessment Comments Gait Comments Scissoring gait and Trendelenburg gait with weakness in the hip on the left, worsens with fatigue. Pt ambulated wit 4WW 80 feet PT-OP-J Posture/Palpation/Skin Start: 04/25/20 08:10 Freq: Status: Active Protocol: Document 04/25/20 08:15 AMB (Rec: 04/25/20 15:57 AMB [email or web address]) Posture Evaluation Comments Posture Comments thoracic kyphosis and forward head PT-OP-M Strength Start: 04/25/20 08:10 Freq: Status: Active Protocol: Document 04/25/20 08:15 AMB (Rec: 04/25/20 15:57 AMB [email or web address]) Hip Strength Hip Manual Muscle Testing Right Flexion (L2) 4 Good Extension (S1) 4 Good Abduction 4 Good Left Flexion (L2) 4 Good Extension (S1) 3 Fair Abduction 3- Fair- PT-OP-Q Treatments Start: 04/25/20 08:10 Freq: Status: Active Protocol: Document 06/05/20 12:45 AMB (Rec: 06/05/20 15:54 AMB [id number]) Therapeutic Exercises Supine Exercises 5 Supine Exercise Name hamstring/adductor/ IT band stretch Side bilateral Reps/Minutes 30EA 1 Supine Exercise Name standing posture Reps/Minutes with and without 4WW Comments avoiding knee hyperextension, posterior lean Sidelying Exercises 1 Sidelying Exercise Name clamshell Reps/Minutes 30 Comments without t band (AROM) Standing Exercises 2 Standing Exercise Name sit<>Stand Reps/Minutes x5 Comments vc forward lean, Wale x 5 Therapeutic Activity Therapeutic Activity 1 Name BED Mobility Comments Wale supine to sit through doing a sit up, ModA through sidelying Gait Training Gait Activity 1 Description 4WW walking Distance/Duration 120' Comments encouraged heel strike on R; focused on not adducting RLE and keeping pelvis stable. Last 20' pt had decreased stability. PT-OP-T Assessment and Plan Start: 04/25/20 08:10 Freq: Status: Active Protocol: Document 06/05/20 12:47 AMB (Rec: 06/05/20 13:31 AMB [id number]) Physical Therapy Assessment Goals Three Impairment Gait Short Term Goal (STG) Elise will ambulate with her 4WW for 1 minute with Wale. STG Duration MET Half-Way Goal (LTG) Elise will ambulate with her 4WW without LOB or scissoring gait for 2 minutes. Scissoring gait continues LTG Duration 8 weeks Two Impairment Standing balance Short Term Goal (STG) Patient will be able to stand with 4WW with min A for 1 minutes. STG Duration MET Yarn Mercerizer Operator Goal (LTG) Elise will move from sit to stand with Wale without LOB posteriorly. --Inconsistent LTG Duration 8 weeks 1 Impairment Transfers wc to mat table/bed Short Term Goal (STG) Patient will be min A with stand pivot transfer from wc to bed in 4-6 weeks. STG Duration MET Yarn Mercerizer Operator Goal (LTG) Patient will perform all bed mobility with Wale.- pt can perform all bed mobility in the clinic on the treatment table with Wale-ModA ( sidelying to sit) but at home it sounds like her provides more assistance. LTG Duration 8 weeks Assessment Summary Assessment Elise noted that the stretching felt good on the L, but hurt on the right after last appointment. Continues to have tendency to lose balance posteriorly, especially with sit to stand. Encouraged to give her time to do the majority of the transfer, especially with his back pain, but counseled pt that she does need him to be right there just in case of a fall, as she has had many. Physical Therapy Plan Next Visit Focus/Plan Next Note Type Treatment Note Next Visit Plan Continue to modify ther ex as necessary for R LE pain. Work on strengthening LEs, gait training with 4WW and bed mobility.
--- NOTE | 2020-06-05 16:09 | PT.OPPN ---
Current Diagnoses Parkinson's disease (06/05/20) Other abnormalities of gait and mobility (06/05/20) Unspecified foreign body in respiratory tract, part unspecified causing other injury, sequela (06/05/20) History of falling (06/05/20) Physical Therapy Progress Note PT-OP-A Visit Information Start: 04/25/20 08:10 Freq: Status: Active Protocol: Document 06/05/20 12:45 AMB (Rec: 06/05/20 15:54 AMB [id number]) Out-Patient Physical Therapy Visit Information Visit Information Visit Type Progress Note Visit Start Time 12:45 Visit Stop Time 13:25 Total Visit Minutes 40 Visit Number 10 PT-OP-B Current Condition Start: 04/25/20 08:10 Freq: Status: Active Protocol: Document 04/25/20 08:11 AMB (Rec: 04/25/20 08:32 AMB [id number]) Current Condition History of Current Condition Onset Date Parkinson's Disease diagnosed in 1993 Current Complaints Unsteadiness with independent gait/transfers History of Current Condition Chief complaint of weakness and instability when standing. The patient has progressive parkinson's disease and is primarily taken care of by her . Her speech is quiet and she has a hard time speaking loudly so her does report some information. The patient fell in 2010 and had hip surgery due to a fractured femoral head that has not had an updated x-ray per the 's report since then she does report L sided hip pain and weakness. The patient's helps her transfer to the bed, the recliner, the car, and to the toilet to and from the wheelchair which the patient does help push with but has occasional freezing situations . He does have a caregiver come in once a week. Prior Treatments and Tests Has had PT in the past, currently sees Speech Therapy for swallowing and speech. Deep Brain Stimulator present. Personal Factors Other Personal Factors That May Effect 2 months ago- fell out of Therapy/Recovery chair forward while was driving it, foot caught on threshold. Trying to get out of bed independently has led to falls. thinks he does about 75% of the transfers. PT-OP-C Subjective Start: 04/25/20 08:10 Freq: Status: Active Protocol: Document 06/05/20 12:45 AMB (Rec: 06/05/20 15:54 AMB [id number]) OP-PT Subjective Patient Comments Patient Comments Elise continues to have R sided leg pain, that is worst with sitting. She felt that the stretching increased the pain for a bit on the R, but did feel good on the L. PT-OP-D Balance Start: 04/25/20 08:10 Freq: Status: Active Protocol: Document 04/25/20 08:15 AMB (Rec: 04/25/20 15:57 AMB [email or web address]) Balance Tests Other Other Balance Tests Performed Pt requires UE support to maintain standing, tends to lose balance posteriorly with sit to stand PT-OP-G Mobility & Gait Start: 04/25/20 08:10 Freq: Status: Active Protocol: Document 04/25/20 08:15 AMB (Rec: 04/25/20 15:57 AMB [email or web address]) OP Mobility Evaluation Bed Mobility Supine to and from Sit Wale with slow movement Transfers Sit to Stand Wale- loses balance posteriorly Bed to Chair Transfers Pt's assists at baseline- he thinks ModA, but pt is able to do more if given the time to do so. OP Gait Assessment Comments Gait Comments Scissoring gait and Trendelenburg gait with weakness in the hip on the left, worsens with fatigue. Pt ambulated wit 4WW 80 feet PT-OP-J Posture/Palpation/Skin Start: 04/25/20 08:10 Freq: Status: Active Protocol: Document 04/25/20 08:15 AMB (Rec: 04/25/20 15:57 AMB [email or web address]) Posture Evaluation Comments Posture Comments thoracic kyphosis and forward head PT-OP-M Strength Start: 04/25/20 08:10 Freq: Status: Active Protocol: Document 04/25/20 08:15 AMB (Rec: 04/25/20 15:57 AMB [email or web address]) Hip Strength Hip Manual Muscle Testing Right Flexion (L2) 4 Good Extension (S1) 4 Good Abduction 4 Good Left Flexion (L2) 4 Good Extension (S1) 3 Fair Abduction 3- Fair- PT-OP-T Assessment and Plan Start: 04/25/20 08:10 Freq: Status: Active Protocol: Document 06/05/20 12:47 AMB (Rec: 06/05/20 13:31 AMB [id number]) Physical Therapy Assessment Goals Three Impairment Gait Short Term Goal (STG) Elise will ambulate with her 4WW for 1 minute with Wale. STG Duration MET Seat Covers Trimmer Goal (LTG) Elise will ambulate with her 4WW without LOB or scissoring gait for 2 minutes. Scissoring gait continues LTG Duration 8 weeks Two Impairment Standing balance Short Term Goal (STG) Patient will be able to stand with 4WW with min A for 1 minutes. STG Duration MET Seat Covers Trimmer Goal (LTG) Elise will move from sit to stand with Wale without LOB posteriorly. --Inconsistent LTG Duration 8 weeks 1 Impairment Transfers wc to mat table/bed Short Term Goal (STG) Patient will be min A with stand pivot transfer from wc to bed in 4-6 weeks. STG Duration MET Detention Goal (LTG) Patient will perform all bed mobility with Wale.- pt can perform all bed mobility in the clinic on the treatment table with Wale-ModA ( sidelying to sit) but at home it sounds like her provides more assistance. LTG Duration 8 weeks Assessment Summary Assessment Elise noted that the stretching felt good on the L, but hurt on the right after last appointment. Continues to have tendency to lose balance posteriorly, especially with sit to stand. Encouraged to give her time to do the majority of the transfer, especially with his back pain, but counseled pt that she does need him to be right there just in case of a fall, as she has had many. Physical Therapy Plan Next Visit Focus/Plan Next Note Type Treatment Note Next Visit Plan Continue to modify ther ex as necessary for R LE pain. Work on strengthening LEs, gait training with 4WW and bed mobility.
--- NOTE | 2020-06-09 12:15 | PT.OTN ---
Current Diagnoses Parkinson's disease (06/09/20) Other abnormalities of gait and mobility (06/09/20) Unspecified foreign body in respiratory tract, part unspecified causing other injury, sequela (06/09/20) History of falling (06/09/20) Physical Therapy Treatment Note PT-OP-A Visit Information Start: 04/25/20 08:10 Freq: Status: Active Protocol: Document 06/09/20 12:00 MA (Rec: 06/09/20 12:15 MA [email or web address]) Out-Patient Physical Therapy Visit Information Visit Information Visit Type Treatment Note Visit Start Time 11:15 Visit Stop Time 12:00 Total Visit Minutes 45 Visit Number 11 Number of DIRECTOR LONG TERM CARE Visits 1 Precautions Precautions Partial hip replacement in 2010, fall risk PT-OP-B Current Condition Start: 04/25/20 08:10 Freq: Status: Active Protocol: Document 04/25/20 08:11 AMB (Rec: 04/25/20 08:32 AMB [id number]) Current Condition History of Current Condition Onset Date Parkinson's Disease diagnosed in 1993 Current Complaints Unsteadiness with independent gait/transfers History of Current Condition Chief complaint of weakness and instability when standing. The patient has progressive parkinson's disease and is primarily taken care of by her . Her speech is quiet and she has a hard time speaking loudly so her does report some information. The patient fell in 2010 and had hip surgery due to a fractured femoral head that has not had an updated x-ray per the 's report since then she does report L sided hip pain and weakness. The patient's helps her transfer to the bed, the recliner, the car, and to the toilet to and from the wheelchair which the patient does help push with but has occasional freezing situations . He does have a caregiver come in once a week. Prior Treatments and Tests Has had PT in the past, currently sees Speech Therapy for swallowing and speech. Deep Brain Stimulator present. Personal Factors Other Personal Factors That May Effect 2 months ago- fell out of Therapy/Recovery chair forward while was driving it, foot caught on threshold. Trying to get out of bed independently has led to falls. thinks he does about 75% of the transfers. PT-OP-C Subjective Start: 04/25/20 08:10 Freq: Status: Active Protocol: Document 01/15/21 12:00 MA (Rec: 06/09/20 12:15 MA [email or web address]) OP-PT Subjective Patient Comments Patient Comments Elise's reports that whatever side she lays on when going to bed is the side she stays on. He would like to continue working on bed mobility so she doesn't lay on one side too much and risk getting sores if she can't roll to the other side. PT-OP-D Balance Start: 04/25/20 08:10 Freq: Status: Active Protocol: Document 04/25/20 08:15 AMB (Rec: 04/25/20 15:57 AMB [email or web address]) Balance Tests Other Other Balance Tests Performed Pt requires UE support to maintain standing, tends to lose balance posteriorly with sit to stand PT-OP-G Mobility & Gait Start: 04/25/20 08:10 Freq: Status: Active Protocol: Document 04/25/20 08:15 AMB (Rec: 04/25/20 15:57 AMB [email or web address]) OP Mobility Evaluation Bed Mobility Supine to and from Sit Wale with slow movement Transfers Sit to Stand aWle- loses balance posteriorly Bed to Chair Transfers Pt's assists at baseline- he thinks ModA, but pt is able to do more if given the time to do so. OP Gait Assessment Comments Gait Comments Scissoring gait and Trendelenburg gait with weakness in the hip on the left, worsens with fatigue. Pt ambulated wit 4WW 80 feet PT-OP-J Posture/Palpation/Skin Start: 04/25/20 08:10 Freq: Status: Active Protocol: Document 04/25/20 08:15 AMB (Rec: 04/25/20 15:57 AMB [email or web address]) Posture Evaluation Comments Posture Comments thoracic kyphosis and forward head PT-OP-M Strength Start: 04/25/20 08:10 Freq: Status: Active Protocol: Document 04/25/20 08:15 AMB (Rec: 04/25/20 15:57 AMB [email or web address]) Hip Strength Hip Manual Muscle Testing Right Flexion (L2) 4 Good Extension (S1) 4 Good Abduction 4 Good Left Flexion (L2) 4 Good Extension (S1) 3 Fair Abduction 3- Fair- PT-OP-Q Treatments Start: 04/25/20 08:10 Freq: Status: Active Protocol: Document 06/09/20 12:00 MA (Rec: 06/09/20 12:15 MA [email or web address]) Therapeutic Exercises Supine Exercises Sit Ups Supine Exercise Name Long sit, sit ups Reps/Minutes x8 Comments First 3x CGA, Min A x5 1 Supine Exercise Name standing posture Reps/Minutes with and without 4WW Comments avoiding knee hyperextension, posterior lean Sidelying Exercises Abduction Side bilateral Reps/Minutes x10 Comments cues to avoid hip flexion 1 Sidelying Exercise Name Clamshell Side bilateral Reps/Minutes 10x Comments TB#1 Sitting Exercises 1 Sitting Exercise Name clamshell Reps/Minutes 2x10 Comments #2 band Knee Extension Sitting Exercise Name LAQ Side bilateral Reps/Minutes 8x Comments Working on trunk control Standing Exercises 2 Standing Exercise Name sit<>Stand Reps/Minutes x8 Comments vc forward lean, Min A Therapeutic Activity Therapeutic Activity 1 Name BED Mobility Comments Wale-CGA supine to sit through doing a sit up, Min A-CGA through sidelying Gait Training Gait Activity 1 Description 4WW walking Distance/Duration 120' Comments encouraged heel strike on R; focused on not adducting RLE and keeping pelvis stable. Last 20' pt had decreased stability. Walking in // bars Description Step ups in // bars onto blue foam Device Used Airex Level of Assistance Min A Distance/Duration x10 bilaterally Treatment Focus increasing hip/knee flexion and balance PT-OP-T Assessment and Plan Start: 04/25/20 08:10 Freq: Status: Active Protocol: Document 06/09/20 12:00 MA (Rec: 06/09/20 12:15 MA [email or web address]) Physical Therapy Assessment Goals Three Impairment Gait Short Term Goal (STG) Elise will ambulate with her 4WW for 1 minute with Wale. STG Duration MET Group Home Goal (LTG) Elise will ambulate with her 4WW without LOB or scissoring gait for 2 minutes. Scissoring gait continues LTG Duration 8 weeks Two Impairment Standing balance Short Term Goal (STG) Patient will be able to stand with 4WW with min A for 1 minutes. STG Duration MET Manufacturing Technician Goal (LTG) Elise will move from sit to stand with Wale without LOB posteriorly. --Inconsistent LTG Duration 8 weeks 1 Impairment Transfers wc to mat table/bed Short Term Goal (STG) Patient will be min A with stand pivot transfer from wc to bed in 4-6 weeks. STG Duration MET Group Home Goal (LTG) Patient will perform all bed mobility with Wale.- pt can perform all bed mobility in the clinic on the treatment table with Wale-ModA ( sidelying to sit) but at home it sounds like her provides more assistance. LTG Duration 8 weeks Assessment Summary Assessment Elise did well with bed mobility needing only CGA for the first 3 sit ups to Min A for the next 5. She was able to repeatedly roll supine<> sidelying with SBA today. Her gait has improved showing better heel strike on the R, but she still will adduct LEs unless cued. As pt tires, she tends to lean heavily to the R , needing cues to find midline again. At end of session, requested working more on floor transfers/fall recovery next session. Physical Therapy Plan Frequency and Duration Frequency of Treatment 2x/Week Duration of Treatment 8 weeks Plan of Care Start Date 04/25/20 Plan of Care End Date 06/20/20 Therapeutic Interventions Therapeutic Interventions Balance Training,Gait Training ,Home Exercise Program,Manual Therapy,Neuromuscular Re- education,Self-Care/Home Management,Therapeutic Activities,Therapeutic Exercises Next Visit Focus/Plan Next Note Type Treatment Note Next Visit Plan Work on floor transfers/fall recovery. Continue strengthening LEs, gait training with 4WW and bed mobility
--- NOTE | 2020-06-14 12:53 | PT.OTN ---
Current Diagnoses Parkinson's disease (06/14/20) Other abnormalities of gait and mobility (06/14/20) Unspecified foreign body in respiratory tract, part unspecified causing other injury, sequela (06/14/20) History of falling (06/14/20) Physical Therapy Treatment Note PT-OP-A Visit Information Start: 04/25/20 08:10 Freq: Status: Active Protocol: Document 06/14/20 11:00 AMB (Rec: 06/14/20 11:56 AMB [id number]) Out-Patient Physical Therapy Visit Information Visit Information Visit Type Treatment Note Visit Start Time 11:00 Visit Stop Time 11:45 Total Visit Minutes 45 Visit Number 12 PT-OP-B Current Condition Start: 04/25/20 08:10 Freq: Status: Active Protocol: Document 04/25/20 08:11 AMB (Rec: 04/25/20 08:32 AMB [id number]) Current Condition History of Current Condition Onset Date Parkinson's Disease diagnosed in 1993 Current Complaints Unsteadiness with independent gait/transfers History of Current Condition Chief complaint of weakness and instability when standing. The patient has progressive parkinson's disease and is primarily taken care of by her . Her speech is quiet and she has a hard time speaking loudly so her does report some information. The patient fell in 2010 and had hip surgery due to a fractured femoral head that has not had an updated x-ray per the 's report since then she does report L sided hip pain and weakness. The patient's helps her transfer to the bed, the recliner, the car, and to the toilet to and from the wheelchair which the patient does help push with but has occasional freezing situations . He does have a caregiver come in once a week. Prior Treatments and Tests Has had PT in the past, currently sees Speech Therapy for swallowing and speech. Deep Brain Stimulator present. Personal Factors Other Personal Factors That May Effect 2 months ago- fell out of Therapy/Recovery chair forward while was driving it, foot caught on threshold. Trying to get out of bed independently has led to falls. thinks he does about 75% of the transfers. PT-OP-C Subjective Start: 04/25/20 08:10 Freq: Status: Active Protocol: Document 06/14/20 11:00 AMB (Rec: 06/14/20 11:56 AMB [id number]) OP-PT Subjective Patient Comments Patient Comments Si's is most concerned about her ability to roll and get into hands and knees position during floor transfer . PT-OP-D Balance Start: 04/25/20 08:10 Freq: Status: Active Protocol: Document 04/25/20 08:15 AMB (Rec: 04/25/20 15:57 AMB [email or web address]) Balance Tests Other Other Balance Tests Performed Pt requires UE support to maintain standing, tends to lose balance posteriorly with sit to stand PT-OP-G Mobility & Gait Start: 04/25/20 08:10 Freq: Status: Active Protocol: Document 04/25/20 08:15 AMB (Rec: 04/25/20 15:57 AMB [email or web address]) OP Mobility Evaluation Bed Mobility Supine to and from Sit Wale with slow movement Transfers Sit to Stand Wale- loses balance posteriorly Bed to Chair Transfers Pt's assists at baseline- he thinks ModA, but pt is able to do more if given the time to do so. OP Gait Assessment Comments Gait Comments Scissoring gait and Trendelenburg gait with weakness in the hip on the left, worsens with fatigue. Pt ambulated wit 4WW 80 feet PT-OP-J Posture/Palpation/Skin Start: 04/25/20 08:10 Freq: Status: Active Protocol: Document 04/25/20 08:15 AMB (Rec: 04/25/20 15:57 AMB [email or web address]) Posture Evaluation Comments Posture Comments thoracic kyphosis and forward head PT-OP-M Strength Start: 04/25/20 08:10 Freq: Status: Active Protocol: Document 04/25/20 08:15 AMB (Rec: 04/25/20 15:57 AMB [email or web address]) Hip Strength Hip Manual Muscle Testing Right Flexion (L2) 4 Good Extension (S1) 4 Good Abduction 4 Good Left Flexion (L2) 4 Good Extension (S1) 3 Fair Abduction 3- Fair- PT-OP-Q Treatments Start: 04/25/20 08:10 Freq: Status: Active Protocol: Document 06/14/20 11:00 AMB (Rec: 06/14/20 12:53 AMB [email or web address]) Therapeutic Exercises Supine Exercises 5 Supine Exercise Name hamstring/adductor/ IT band stretch Side bilateral Reps/Minutes 30EA Sidelying Exercises 1 Sidelying Exercise Name Clamshell Side bilateral Reps/Minutes 10x Comments TB#1 Standing Exercises 2 Standing Exercise Name sit<>Stand Reps/Minutes x8 Comments vc forward lean, Min A Therapeutic Activity Therapeutic Activity 2 Name sidelying<>quadruped Comments as a piece of floor transfer - ModA 1 Name BED Mobility Comments Wale-CGA supine to sit through doing a sit up, Min A-CGA through sidelying Gait Training Gait Activity 1 Description 4WW walking Distance/Duration 2x60' Comments encouraged heel strike on R; focused on not adducting RLE and keeping pelvis stable. Last 20' pt had decreased stability. PT-OP-T Assessment and Plan Start: 04/25/20 08:10 Freq: Status: Active Protocol: Document 06/14/20 11:00 AMB (Rec: 06/14/20 12:53 AMB [email or web address]) Physical Therapy Assessment Goals Three Impairment Gait Short Term Goal (STG) Elise will ambulate with her 4WW for 1 minute with Wale. STG Duration MET Snath Handle Assembler Goal (LTG) Elise will ambulate with her 4WW without LOB or scissoring gait for 2 minutes. Scissoring gait continues LTG Duration 8 weeks Two Impairment Standing balance Short Term Goal (STG) Patient will be able to stand with 4WW with min A for 1 minutes. STG Duration MET Snath Handle Assembler Goal (LTG) Elise will move from sit to stand with Wale without LOB posteriorly. --Inconsistent LTG Duration 8 weeks 1 Impairment Transfers wc to mat table/bed Short Term Goal (STG) Patient will be min A with stand pivot transfer from wc to bed in 4-6 weeks. STG Duration MET Assisted Goal (LTG) Patient will perform all bed mobility with Wale.- pt can perform all bed mobility in the clinic on the treatment table with Wale-ModA ( sidelying to sit) but at home it sounds like her provides more assistance. LTG Duration 8 weeks Assessment Summary Assessment Si needed ModA to move from sidelying to quadruped, and we will need to continue to progress this skill in order to meet her 's goal of her being able to crawl to get help if she were to fall when he is out doing yardwork. Physical Therapy Plan Frequency and Duration Frequency of Treatment 2x/Week Duration of Treatment 8 weeks Plan of Care Start Date 04/25/20 Plan of Care End Date 06/20/20 Therapeutic Interventions Therapeutic Interventions Balance Training,Gait Training ,Home Exercise Program,Manual Therapy,Neuromuscular Re- education,Self-Care/Home Management,Therapeutic Activities,Therapeutic Exercises Next Visit Focus/Plan Next Note Type Treatment Note Next Visit Plan Continue to progress floor transfer/fall recovery
--- NOTE | 2020-06-16 11:15 | PT.OTN ---
Current Diagnoses Parkinson's disease (06/16/20) Other abnormalities of gait and mobility (06/16/20) Unspecified foreign body in respiratory tract, part unspecified causing other injury, sequela (06/16/20) History of falling (06/16/20) Physical Therapy Treatment Note PT-OP-A Visit Information Start: 04/25/20 08:10 Freq: Status: Active Protocol: Document 06/16/20 13:35 MA (Rec: 06/16/20 13:47 MA [email or web address]) Out-Patient Physical Therapy Visit Information Visit Information Visit Type Treatment Note Visit Start Time 10:30 Visit Stop Time 11:12 Total Visit Minutes 42 Visit Number 13 Number of CARTON STENCILER Visits 1 Precautions Precautions Partial hip replacement in 2010, fall risk PT-OP-B Current Condition Start: 04/25/20 08:10 Freq: Status: Active Protocol: Document 04/25/20 08:11 AMB (Rec: 04/25/20 08:32 AMB [id number]) Current Condition History of Current Condition Onset Date Parkinson's Disease diagnosed in 1993 Current Complaints Unsteadiness with independent gait/transfers History of Current Condition Chief complaint of weakness and instability when standing. The patient has progressive parkinson's disease and is primarily taken care of by her . Her speech is quiet and she has a hard time speaking loudly so her does report some information. The patient fell in 2010 and had hip surgery due to a fractured femoral head that has not had an updated x-ray per the 's report since then she does report L sided hip pain and weakness. The patient's helps her transfer to the bed, the recliner, the car, and to the toilet to and from the wheelchair which the patient does help push with but has occasional freezing situations . He does have a caregiver come in once a week. Prior Treatments and Tests Has had PT in the past, currently sees Speech Therapy for swallowing and speech. Deep Brain Stimulator present. Personal Factors Other Personal Factors That May Effect 2 months ago- fell out of Therapy/Recovery chair forward while was driving it, foot caught on threshold. Trying to get out of bed independently has led to falls. thinks he does about 75% of the transfers. PT-OP-C Subjective Start: 04/25/20 08:10 Freq: Status: Active Protocol: Document 01/22/21 13:35 MA (Rec: 06/16/20 13:47 MA [email or web address]) OP-PT Subjective Patient Comments Patient Comments Pt states she is having R sided LE pain and points posteriorly. PT-OP-D Balance Start: 04/25/20 08:10 Freq: Status: Active Protocol: Document 04/25/20 08:15 AMB (Rec: 04/25/20 15:57 AMB [email or web address]) Balance Tests Other Other Balance Tests Performed Pt requires UE support to maintain standing, tends to lose balance posteriorly with sit to stand PT-OP-G Mobility & Gait Start: 04/25/20 08:10 Freq: Status: Active Protocol: Document 04/25/20 08:15 AMB (Rec: 04/25/20 15:57 AMB [email or web address]) OP Mobility Evaluation Bed Mobility Supine to and from Sit Wale with slow movement Transfers Sit to Stand Wale- loses balance posteriorly Bed to Chair Transfers Pt's assists at baseline- he thinks ModA, but pt is able to do more if given the time to do so. OP Gait Assessment Comments Gait Comments Scissoring gait and Trendelenburg gait with weakness in the hip on the left, worsens with fatigue. Pt ambulated wit 4WW 80 feet PT-OP-J Posture/Palpation/Skin Start: 04/25/20 08:10 Freq: Status: Active Protocol: Document 04/25/20 08:15 AMB (Rec: 04/25/20 15:57 AMB [email or web address]) Posture Evaluation Comments Posture Comments thoracic kyphosis and forward head PT-OP-M Strength Start: 04/25/20 08:10 Freq: Status: Active Protocol: Document 04/25/20 08:15 AMB (Rec: 04/25/20 15:57 AMB [email or web address]) Hip Strength Hip Manual Muscle Testing Right Flexion (L2) 4 Good Extension (S1) 4 Good Abduction 4 Good Left Flexion (L2) 4 Good Extension (S1) 3 Fair Abduction 3- Fair- PT-OP-Q Treatments Start: 04/25/20 08:10 Freq: Status: Active Protocol: Document 06/16/20 13:35 MA (Rec: 06/16/20 13:47 MA [email or web address]) Therapeutic Exercises Supine Exercises Sit Ups Supine Exercise Name Long sit, sit ups Reps/Minutes x5 Comments Wale-CGA Standing Exercises 2 Standing Exercise Name sit<>Stand Reps/Minutes 5x Comments vc forward lean, Min A Therapeutic Activity Therapeutic Activity Crawling Reps/Minutes 5 ft fwd/back x3 Comments crawling on all 4's in order to be able to reach phone if pt were to fall at home 2 Name sidelying<>quadruped Comments as a piece of floor transfer MIN A on first transfer, CGA x33, SBA x1 at end of session 1 Name BED Mobility Comments Wale-CGA supine to sit through doing a sit up, Min A-CGA through sidelying Gait Training Gait Activity 1 Description 4WW walking Distance/Duration 2x60' Comments encouraged heel strike on R; focused on not adducting RLE and keeping pelvis stable. Walking in // bars Description Step ups in // bars onto 6 step Distance/Duration x8 Comments fwd and laterally Manual Therapy Treatment Soft Tissue Mobilization HS Body Location HS and quads Mobilization Type Rolling,Sustained Pressure, Trigger Point Release Intensity/Depth Moderate Body Position Hooklying PT-OP-T Assessment and Plan Start: 04/25/20 08:10 Freq: Status: Active Protocol: Document 06/16/20 13:35 MA (Rec: 06/16/20 13:47 MA [email or web address]) Physical Therapy Assessment Goals Three Impairment Gait Short Term Goal (STG) Elise will ambulate with her 4WW for 1 minute with Wale. STG Duration MET Rn Community Goal (LTG) Elise will ambulate with her 4WW without LOB or scissoring gait for 2 minutes. Scissoring gait continues LTG Duration 8 weeks Two Impairment Standing balance Short Term Goal (STG) Patient will be able to stand with 4WW with min A for 1 minutes. STG Duration MET Rn Community Goal (LTG) Elise will move from sit to stand with Wale without LOB posteriorly. --Inconsistent LTG Duration 8 weeks 1 Impairment Transfers wc to mat table/bed Short Term Goal (STG) Patient will be min A with stand pivot transfer from wc to bed in 4-6 weeks. STG Duration MET Rn Community Goal (LTG) Patient will perform all bed mobility with aWle.- pt can perform all bed mobility in the clinic on the treatment table with Wale-ModA ( sidelying to sit) but at home it sounds like her provides more assistance. LTG Duration 8 weeks Assessment Summary Assessment Pt was able to complete SL> quadraped 5x with first needing Min A, next 3x CGA, and final attempt was SBA. Once in quadraped, pt was able to crawl forward and backward with 1x Min A for RUE giving out. Pt continues to need cues for avoiding scissoring gait. She needed CGA with bilateral TURNER MACHINE OPERATOR on //bars for stepping up forward and Min A-Mod A for stepping up laterally. Pt has showed improvemet with all bed mobility and transfer training recently. She would continue to benefit from therapy for completing floor transfers and improving gait to decrease fall risk. Physical Therapy Plan Frequency and Duration Frequency of Treatment 2x/Week Duration of Treatment 8 weeks Plan of Care Start Date 04/25/20 Plan of Care End Date 06/20/20 Therapeutic Interventions Therapeutic Interventions Balance Training,Gait Training ,Home Exercise Program,Manual Therapy,Neuromuscular Re- education,Self-Care/Home Management,Therapeutic Activities,Therapeutic Exercises Next Visit Focus/Plan Next Note Type Treatment Note Next Visit Plan Continue to progress floor transfer/fall recovery
--- NOTE | 2020-06-20 16:14 | PT.OPPOC ---
Physical, Occupational & Speech Therapy At [facility] Current Diagnoses Parkinson's disease (06/16/20) Other abnormalities of gait and mobility (06/16/20) Unspecified foreign body in respiratory tract, part unspecified causing other injury, sequela (06/16/20) History of falling (06/16/20) Visit Care Team Role Provider Type Hudson Mcmanus MD Attending Provider Physician Primary Care Provider Referring Provider Specialty: Internal Medicine Address: [address] [place] [address], [address], [facility] Email: [email or web address] Plan Of Care PT-OP-T Assessment and Plan Start: 04/25/20 08:10 Freq: Status: Active Protocol: Document 06/20/20 16:07 AMB (Rec: 06/20/20 16:14 AMB [email or web address]) Physical Therapy Assessment Goals Three Impairment Gait Short Term Goal (STG) Elise will ambulate with her 4WW for 1 minute with Wale. STG Duration MET Communications Department Chairperson Goal (LTG) Elise will ambulate with her 4WW without LOB or scissoring gait for 2 minutes. Scissoring gait continues- very dependent upon pain/ fatigue level LTG Duration 8 weeks Two Impairment Standing balance Short Term Goal (STG) Patient will be able to stand with 4WW with min A for 1 minutes. STG Duration [employer] Department Chairperson Goal (LTG) Elise will move from sit to stand with Wale without LOB posteriorly. --Inconsistent LTG Duration 8 weeks 1 Impairment Transfers wc to mat table/bed Short Term Goal (STG) Patient will be min A with stand pivot transfer from wc to bed in 4-6 weeks. STG Duration [employer] Department Chairperson Goal (LTG) Patient will perform all bed mobility with Wale.- pt can perform all bed mobility in the clinic on the treatment table with Wale-ModA ( sidelying to sit) but at home it sounds like her provides more assistance. LTG Duration 8 weeks Assessment Summary Assessment Si has shown some improvement in safety with transfers and gait. Her pain continues to be a limiting factor and is intermittent in nature. Her is hopeful that she would be able to move from supine to at least sitting independently in case she falls while he is out of the house. She will need to improve her strength in order to do that independently, and it has been difficult to achieve strength improvements considering her pain and tone, although she does try to do her exercises. She will benefit from continued physical therapy to continue to improve her safety, hip strength, and try to reduce her LE pain so that she is better able to transfer independently. Physical Therapy Plan Frequency and Duration Frequency of Treatment 2x/Week Duration of Treatment 8 weeks Plan of Care Start Date 06/20/20 Plan of Care End Date 08/15/20 Therapeutic Interventions Therapeutic Interventions Balance Training,Gait Training ,Home Exercise Program,Manual Therapy,Neuromuscular Re- education,Self-Care/Home Management,Therapeutic Activities,Therapeutic Exercises Plan of Care Dates Plan of Care Start Date 06/20/20 Plan of Care End Date 08/15/20 Electronically Signed by: Harriet Colvin, PT 06/20/20 2937 Please Sign and Return: I have reviewed this Plan of Care and certify that the skilled therapy services above are required to meet the patient?s needs. Physician Signature Date Printed Name and Credentials Clinical Instructor Signature Printed Name and Credentials
--- NOTE | 2020-06-21 13:00 | PT.OTN ---
Current Diagnoses Parkinson's disease (06/21/20) Other abnormalities of gait and mobility (06/21/20) Unspecified foreign body in respiratory tract, part unspecified causing other injury, sequela (06/21/20) History of falling (06/21/20) Physical Therapy Treatment Note PT-OP-A Visit Information Start: 04/25/20 08:10 Freq: Status: Active Protocol: Document 06/21/20 12:45 MA (Rec: 06/21/20 13:00 MA [email or web address]) Out-Patient Physical Therapy Visit Information Visit Information Visit Type Treatment Note Visit Start Time 12:01 Visit Stop Time 12:45 Total Visit Minutes 44 Visit Number 14 Number of PRODUCTION PROOFREADER Visits 2 Precautions Precautions Partial hip replacement in 2010, fall risk PT-OP-B Current Condition Start: 04/25/20 08:10 Freq: Status: Active Protocol: Document 04/25/20 08:11 AMB (Rec: 04/25/20 08:32 AMB [id number]) Current Condition History of Current Condition Onset Date Parkinson's Disease diagnosed in 1993 Current Complaints Unsteadiness with independent gait/transfers History of Current Condition Chief complaint of weakness and instability when standing. The patient has progressive parkinson's disease and is primarily taken care of by her . Her speech is quiet and she has a hard time speaking loudly so her does report some information. The patient fell in 2010 and had hip surgery due to a fractured femoral head that has not had an updated x-ray per the 's report since then she does report L sided hip pain and weakness. The patient's helps her transfer to the bed, the recliner, the car, and to the toilet to and from the wheelchair which the patient does help push with but has occasional freezing situations . He does have a caregiver come in once a week. Prior Treatments and Tests Has had PT in the past, currently sees Speech Therapy for swallowing and speech. Deep Brain Stimulator present. Personal Factors Other Personal Factors That May Effect 2 months ago- fell out of Therapy/Recovery chair forward while was driving it, foot caught on threshold. Trying to get out of bed independently has led to falls. thinks he does about 75% of the transfers. PT-OP-C Subjective Start: 04/25/20 08:10 Freq: Status: Active Protocol: Document 01/27/21 12:45 MA (Rec: 06/21/20 13:00 MA [email or web address]) OP-PT Subjective Patient Comments Patient Comments Pt continues to have posterior R leg pain PT-OP-D Balance Start: 04/25/20 08:10 Freq: Status: Active Protocol: Document 04/25/20 08:15 AMB (Rec: 04/25/20 15:57 AMB [email or web address]) Balance Tests Other Other Balance Tests Performed Pt requires UE support to maintain standing, tends to lose balance posteriorly with sit to stand PT-OP-G Mobility & Gait Start: 04/25/20 08:10 Freq: Status: Active Protocol: Document 04/25/20 08:15 AMB (Rec: 04/25/20 15:57 AMB [email or web address]) OP Mobility Evaluation Bed Mobility Supine to and from Sit Daxa with slow movement Transfers Sit to Stand Daxa- loses balance posteriorly Bed to Chair Transfers Pt's assists at baseline- he thinks ModA, but pt is able to do more if given the time to do so. OP Gait Assessment Comments Gait Comments Scissoring gait and Trendelenburg gait with weakness in the hip on the left, worsens with fatigue. Pt ambulated wit 4WW 80 feet PT-OP-J Posture/Palpation/Skin Start: 04/25/20 08:10 Freq: Status: Active Protocol: Document 04/25/20 08:15 AMB (Rec: 04/25/20 15:57 AMB [email or web address]) Posture Evaluation Comments Posture Comments thoracic kyphosis and forward head PT-OP-M Strength Start: 04/25/20 08:10 Freq: Status: Active Protocol: Document 04/25/20 08:15 AMB (Rec: 04/25/20 15:57 AMB [email or web address]) Hip Strength Hip Manual Muscle Testing Right Flexion (L2) 4 Good Extension (S1) 4 Good Abduction 4 Good Left Flexion (L2) 4 Good Extension (S1) 3 Fair Abduction 3- Fair- PT-OP-Q Treatments Start: 04/25/20 08:10 Freq: Status: Active Protocol: Document 06/21/20 12:45 MA (Rec: 06/21/20 13:00 MA [email or web address]) Therapeutic Exercises Sidelying Exercises 1 Sidelying Exercise Name Clamshell Side bilateral Reps/Minutes 2x10 fabiola Therapeutic Activity Therapeutic Activity High kneeling<>standing Reps/Minutes 3x Comments pt able to stand with LLE forward Min A; Max A for RLE infront Quadraped<>high kneeling Name one hand on mat table other hand holding therapist's hand Reps/Minutes 4x Comments Can bring LLE forward, but not R to stand 2 Name sidelying<>quadruped Comments as a piece of floor transfer- Mod A if rolls to L, SBA if rolled R 1 Name BED Mobility Comments Daxa-CGA supine to sit through doing a sit up, Min A-CGA through sidelying Transfer Sit to Stand Name mat table to 4WW Reps/Minutes 5x throughout treatment Comments pt encouraged to have at least one hand on mat table, vc forward lean with intermittent Daxa to provide more forward weightshift to avoid LOB posterior Gait Training Gait Activity 1 Description 4WW walking Distance/Duration 2x100' Comments encouraged heel strike on R; focused on not adducting RLE and keeping pelvis stable. Manual Therapy Treatment Soft Tissue Mobilization HS Body Location HS Mobilization Type Rolling,Sustained Pressure, Trigger Point Release Intensity/Depth Moderate Body Position Supine Comments Leg up on therapists shd PT-OP-T Assessment and Plan Start: 04/25/20 08:10 Freq: Status: Active Protocol: Document 06/21/20 12:45 MA (Rec: 06/21/20 13:00 MA [email or web address]) Physical Therapy Assessment Goals Three Impairment Gait Short Term Goal (STG) Elise will ambulate with her 4WW for 1 minute with Daxa. STG Duration MET Ecology Professor Goal (LTG) Elise will ambulate with her 4WW without LOB or scissoring gait for 2 minutes. Scissoring gait continues- very dependent upon pain/ fatigue level LTG Duration 8 weeks Two Impairment Standing balance Short Term Goal (STG) Patient will be able to stand with 4WW with min A for 1 minutes. STG Duration MET Fdc Goal (LTG) Elise will move from sit to stand with Daxa without LOB posteriorly. --Inconsistent LTG Duration 8 weeks 1 Impairment Transfers wc to mat table/bed Short Term Goal (STG) Patient will be min A with stand pivot transfer from wc to bed in 4-6 weeks. STG Duration MET Fdc Goal (LTG) Patient will perform all bed mobility with Daxa.- pt can perform all bed mobility in the clinic on the treatment table with Daxa-ModA ( sidelying to sit) but at home it sounds like her provides more assistance. LTG Duration 8 weeks Assessment Summary Assessment Pt is able to perform floor transfer to standing today using mat table on right side for support and therapist on left side. She is able to bring LLE forward needing Min A for LE management and Min A to stand, but has pain and needs Max A if she tries with RLE. Pt can roll R and move into quadraped SBA, but is Mod A to get into quadraped if she rolls L. Pt is improving wtih all bed mobility. Physical Therapy Plan Frequency and Duration Frequency of Treatment 2x/Week Duration of Treatment 8 weeks Plan of Care Start Date 06/20/20 Plan of Care End Date 08/15/20 Next Visit Focus/Plan Next Note Type Treatment Note Next Visit Plan Continue working on floor transfers to standing. Work on getting into quadraped rolling both L and R.
--- NOTE | 2020-06-23 12:32 | PT.OTN ---
Current Diagnoses Parkinson's disease (06/23/20) Other abnormalities of gait and mobility (06/23/20) Unspecified foreign body in respiratory tract, part unspecified causing other injury, sequela (06/23/20) History of falling (06/23/20) Physical Therapy Treatment Note PT-OP-A Visit Information Start: 04/25/20 08:10 Freq: Status: Active Protocol: Document 06/23/20 11:25 MA (Rec: 06/23/20 11:28 MA [email or web address]) Out-Patient Physical Therapy Visit Information Visit Information Visit Type Treatment Note Visit Start Time 10:32 Visit Stop Time 11:12 Total Visit Minutes 40 Visit Number 15 Number of CONTROL AND RECOVERY COMBAT RESCUE Visits 3 Precautions Precautions Partial hip replacement in 2010, fall risk PT-OP-B Current Condition Start: 04/25/20 08:10 Freq: Status: Active Protocol: Document 04/25/20 08:11 AMB (Rec: 04/25/20 08:32 AMB [id number]) Current Condition History of Current Condition Onset Date Parkinson's Disease diagnosed in 1993 Current Complaints Unsteadiness with independent gait/transfers History of Current Condition Chief complaint of weakness and instability when standing. The patient has progressive parkinson's disease and is primarily taken care of by her . Her speech is quiet and she has a hard time speaking loudly so her does report some information. The patient fell in 2010 and had hip surgery due to a fractured femoral head that has not had an updated x-ray per the 's report since then she does report L sided hip pain and weakness. The patient's helps her transfer to the bed, the recliner, the car, and to the toilet to and from the wheelchair which the patient does help push with but has occasional freezing situations . He does have a caregiver come in once a week. Prior Treatments and Tests Has had PT in the past, currently sees Speech Therapy for swallowing and speech. Deep Brain Stimulator present. Personal Factors Other Personal Factors That May Effect 2 months ago- fell out of Therapy/Recovery chair forward while was driving it, foot caught on threshold. Trying to get out of bed independently has led to falls. thinks he does about 75% of the transfers. PT-OP-C Subjective Start: 04/25/20 08:10 Freq: Status: Active Protocol: Document 01/29/21 11:25 MA (Rec: 06/23/20 11:28 MA [email or web address]) OP-PT Subjective Patient Comments Patient Comments states they did floor transfers at home and they went well. PT-OP-D Balance Start: 04/25/20 08:10 Freq: Status: Active Protocol: Document 04/25/20 08:15 AMB (Rec: 04/25/20 15:57 AMB [email or web address]) Balance Tests Other Other Balance Tests Performed Pt requires UE support to maintain standing, tends to lose balance posteriorly with sit to stand PT-OP-G Mobility & Gait Start: 04/25/20 08:10 Freq: Status: Active Protocol: Document 04/25/20 08:15 AMB (Rec: 04/25/20 15:57 AMB [email or web address]) OP Mobility Evaluation Bed Mobility Supine to and from Sit Daxa with slow movement Transfers Sit to Stand Daxa- loses balance posteriorly Bed to Chair Transfers Pt's assists at baseline- he thinks ModA, but pt is able to do more if given the time to do so. OP Gait Assessment Comments Gait Comments Scissoring gait and Trendelenburg gait with weakness in the hip on the left, worsens with fatigue. Pt ambulated wit 4WW 80 feet PT-OP-J Posture/Palpation/Skin Start: 04/25/20 08:10 Freq: Status: Active Protocol: Document 04/25/20 08:15 AMB (Rec: 04/25/20 15:57 AMB [email or web address]) Posture Evaluation Comments Posture Comments thoracic kyphosis and forward head PT-OP-M Strength Start: 04/25/20 08:10 Freq: Status: Active Protocol: Document 04/25/20 08:15 AMB (Rec: 04/25/20 15:57 AMB [email or web address]) Hip Strength Hip Manual Muscle Testing Right Flexion (L2) 4 Good Extension (S1) 4 Good Abduction 4 Good Left Flexion (L2) 4 Good Extension (S1) 3 Fair Abduction 3- Fair- PT-OP-Q Treatments Start: 04/25/20 08:10 Freq: Status: Active Protocol: Document 06/23/20 11:25 MA (Rec: 06/23/20 11:28 MA [email or web address]) Therapeutic Exercises Standing Exercises 2 Standing Exercise Name sit<>Stand Reps/Minutes 10x Comments vc forward lean, Min A 1 Standing Exercise Name upright standing Comments standing with even weightbearing, facilitate thoracic ext Therapeutic Activity Therapeutic Activity High kneeling<>standing Reps/Minutes 3x Comments pt able to stand with LLE forward Min A; Max A for RLE infront Quadraped<>high kneeling Name one hand on mat table other hand holding therapist's hand Reps/Minutes 4x Comments Can bring LLE forward, but not R to stand 2 Name sidelying<>quadruped Comments as a piece of floor transfer- Mod A if rolls to L, SBA if rolled R 1 Name BED Mobility Comments Daxa-CGA supine to sit through doing a sit up, Min A-CGA through sidelying Transfer Sit to Stand Name mat table to 4WW Reps/Minutes 5x throughout treatment Comments pt encouraged to have at least one hand on mat table, vc forward lean with intermittent Daxa to provide more forward weightshift to avoid LOB posterior Gait Training Gait Activity Walking in // bars Description fwd/bkwd, weight shifts Device Used //bars Distance/Duration 4x Treatment Focus thoracic extension Manual Therapy Treatment Soft Tissue Mobilization HS Body Location R HS Mobilization Type Rolling,Sustained Pressure, Trigger Point Release Intensity/Depth Moderate Body Position Supine Comments Leg up on therapists shd Adductors Body Location Bilateral Mobilization Type Rolling,Sustained Pressure, Trigger Point Release Intensity/Depth Moderate Body Position Supine Comments LEs ER PT-OP-T Assessment and Plan Start: 04/25/20 08:10 Freq: Status: Active Protocol: Document 06/23/20 12:28 MA (Rec: 06/23/20 12:32 MA [email or web address]) Physical Therapy Assessment Goals Three Impairment Gait Short Term Goal (STG) Elise will ambulate with her 4WW for 1 minute with Daxa. STG Duration MET Music Journalist Goal (LTG) Elise will ambulate with her 4WW without LOB or scissoring gait for 2 minutes. Scissoring gait continues- very dependent upon pain/ fatigue level LTG Duration 8 weeks Two Impairment Standing balance Short Term Goal (STG) Patient will be able to stand with 4WW with min A for 1 minutes. STG Duration MET Mcc Goal (LTG) Elise will move from sit to stand with Daxa without LOB posteriorly. --Inconsistent LTG Duration 8 weeks 1 Impairment Transfers wc to mat table/bed Short Term Goal (STG) Patient will be min A with stand pivot transfer from wc to bed in 4-6 weeks. STG Duration MET Mcc Goal (LTG) Patient will perform all bed mobility with Daxa.- pt can perform all bed mobility in the clinic on the treatment table with Daxa-ModA ( sidelying to sit) but at home it sounds like her provides more assistance. LTG Duration 8 weeks Assessment Summary Assessment Pt needed Max A to go from SL to quadraped when rolling L today. She needs Daxa to go from high kneeling, to moving LLE forward and standing. During weight shifts, pt needs max verbal cues to maintain thoracic extension and while gait training pt only needed minimal VCs today to avoid adducting RLE. Physical Therapy Plan Frequency and Duration Frequency of Treatment 2x/Week Duration of Treatment 8 weeks Plan of Care Start Date 06/20/20 Plan of Care End Date 08/15/20 Therapeutic Interventions Therapeutic Interventions Balance Training,Gait Training ,Home Exercise Program,Manual Therapy,Neuromuscular Re- education,Self-Care/Home Management,Therapeutic Activities,Therapeutic Exercises Next Visit Focus/Plan Next Note Type Treatment Note Next Visit Plan Continue working on floor transfers to standing. Work on getting into quadraped rolling both L and R. Gait train watching for scissoring gait and thoracic extension
--- NOTE | 2020-06-28 15:35 | PT.OTN ---
Current Diagnoses Parkinson's disease (06/28/20) Other abnormalities of gait and mobility (06/28/20) Unspecified foreign body in respiratory tract, part unspecified causing other injury, sequela (06/28/20) History of falling (06/28/20) Physical Therapy Treatment Note PT-OP-A Visit Information Start: 04/25/20 08:10 Freq: Status: Active Protocol: Document 06/28/20 11:00 AMB (Rec: 06/28/20 12:00 AMB [email or web address]) Out-Patient Physical Therapy Visit Information Visit Information Visit Type Treatment Note Visit Note 08/02 Visit Start Time 11:00 Visit Stop Time 11:45 Total Visit Minutes 45 Visit Number 16 Number of DIRECT SUPPORT PROFESSIONAL Visits 0 PT-OP-B Current Condition Start: 04/25/20 08:10 Freq: Status: Active Protocol: Document 04/25/20 08:11 AMB (Rec: 04/25/20 08:32 AMB [id number]) Current Condition History of Current Condition Onset Date Parkinson's Disease diagnosed in 1993 Current Complaints Unsteadiness with independent gait/transfers History of Current Condition Chief complaint of weakness and instability when standing. The patient has progressive parkinson's disease and is primarily taken care of by her . Her speech is quiet and she has a hard time speaking loudly so her does report some information. The patient fell in 2010 and had hip surgery due to a fractured femoral head that has not had an updated x-ray per the 's report since then she does report L sided hip pain and weakness. The patient's helps her transfer to the bed, the recliner, the car, and to the toilet to and from the wheelchair which the patient does help push with but has occasional freezing situations . He does have a caregiver come in once a week. Prior Treatments and Tests Has had PT in the past, currently sees Speech Therapy for swallowing and speech. Deep Brain Stimulator present. Personal Factors Other Personal Factors That May Effect 2 months ago- fell out of Therapy/Recovery chair forward while was driving it, foot caught on threshold. Trying to get out of bed independently has led to falls. thinks he does about 75% of the transfers. PT-OP-C Subjective Start: 04/25/20 08:10 Freq: Status: Active Protocol: Document 06/28/20 11:00 AMB (Rec: 06/28/20 12:00 AMB [email or web address]) OP-PT Subjective Patient Comments Patient Comments states Elise has had a couple falls in the last week [place] trying to walk independently. PT-OP-D Balance Start: 04/25/20 08:10 Freq: Status: Active Protocol: Document 04/25/20 08:15 AMB (Rec: 04/25/20 15:57 AMB [email or web address]) Balance Tests Other Other Balance Tests Performed Pt requires UE support to maintain standing, tends to lose balance posteriorly with sit to stand PT-OP-G Mobility & Gait Start: 04/25/20 08:10 Freq: Status: Active Protocol: Document 04/25/20 08:15 AMB (Rec: 04/25/20 15:57 AMB [email or web address]) OP Mobility Evaluation Bed Mobility Supine to and from Sit Wale with slow movement Transfers Sit to Stand Wale- loses balance posteriorly Bed to Chair Transfers Pt's assists at baseline- he thinks ModA, but pt is able to do more if given the time to do so. OP Gait Assessment Comments Gait Comments Scissoring gait and Trendelenburg gait with weakness in the hip on the left, worsens with fatigue. Pt ambulated wit 4WW 80 feet PT-OP-J Posture/Palpation/Skin Start: 04/25/20 08:10 Freq: Status: Active Protocol: Document 04/25/20 08:15 AMB (Rec: 04/25/20 15:57 AMB [email or web address]) Posture Evaluation Comments Posture Comments thoracic kyphosis and forward head PT-OP-M Strength Start: 04/25/20 08:10 Freq: Status: Active Protocol: Document 04/25/20 08:15 AMB (Rec: 04/25/20 15:57 AMB [email or web address]) Hip Strength Hip Manual Muscle Testing Right Flexion (L2) 4 Good Extension (S1) 4 Good Abduction 4 Good Left Flexion (L2) 4 Good Extension (S1) 3 Fair Abduction 3- Fair- PT-OP-Q Treatments Start: 04/25/20 08:10 Freq: Status: Active Protocol: Document 06/28/20 11:00 AMB (Rec: 06/28/20 15:35 AMB [id number]) Therapeutic Exercises Prone Exercises 1 Prone Exercise Name prone press up Comments challenging Standing Exercises 3 Standing Exercise Name lumbar extension with // bar behind back Reps/Minutes 5 2 Standing Exercise Name sit<>Stand Reps/Minutes 10x Comments vc forward lean, Min A Other Exercises 1 Other Exercise Name quadruped LE flex/ext Comments difficult to maintain arm stability when moving L leg Therapeutic Activity Therapeutic Activity 2 Name sidelying<>quadruped Comments as a piece of floor transfer- SBA if rolled R 1 Name BED Mobility Comments Wale-CGA supine to sit through doing a sit up, Min A-CGA through sidelying Gait Training Gait Activity 1 Description 4WW walking Distance/Duration 1x100' Comments encouraged heel strike on R; focused on not adducting RLE and keeping pelvis stable. Walking in // bars Description high stepping Distance/Duration 4x PT-OP-T Assessment and Plan Start: 04/25/20 08:10 Freq: Status: Active Protocol: Document 06/28/20 11:00 AMB (Rec: 06/28/20 15:35 AMB [id number]) Physical Therapy Assessment Goals Three Impairment Gait Short Term Goal (STG) Elise will ambulate with her 4WW for 1 minute with Wale. STG Duration MET Physician Obstetrician Goal (LTG) Elise will ambulate with her 4WW without LOB or scissoring gait for 2 minutes. Scissoring gait continues- very dependent upon pain/ fatigue level LTG Duration 8 weeks Two Impairment Standing balance Short Term Goal (STG) Patient will be able to stand with 4WW with min A for 1 minutes. STG Duration MET Physician Obstetrician Goal (LTG) Elise will move from sit to stand with Wale without LOB posteriorly. --Inconsistent LTG Duration 8 weeks 1 Impairment Transfers wc to mat table/bed Short Term Goal (STG) Patient will be min A with stand pivot transfer from wc to bed in 4-6 weeks. STG Duration MET Fci Goal (LTG) Patient will perform all bed mobility with Wale.- pt can perform all bed mobility in the clinic on the treatment table with Wale-ModA ( sidelying to sit) but at home it sounds like her provides more assistance. LTG Duration 8 weeks Assessment Summary Assessment Asked Si not to walk without assistance at home. states she is quite depressed about physical functioning. Encouraged that we will work on walking/ floor transfer here, but fall risk is too great to walk independently at this time. Physical Therapy Plan Next Visit Focus/Plan Next Note Type Treatment Note Next Visit Plan Continue working on floor transfers to standing. Work on getting into quadraped rolling both L and R. Gait train watching for scissoring gait and thoracic extension
--- NOTE | 2020-06-30 14:22 | PT.OTN ---
Current Diagnoses Parkinson's disease (06/30/20) Other abnormalities of gait and mobility (06/30/20) Unspecified foreign body in respiratory tract, part unspecified causing other injury, sequela (06/30/20) History of falling (06/30/20) Physical Therapy Treatment Note PT-OP-A Visit Information Start: 04/25/20 08:10 Freq: Status: Active Protocol: Document 06/30/20 14:10 MA (Rec: 06/30/20 14:22 MA [email or web address]) Out-Patient Physical Therapy Visit Information Visit Information Visit Type Treatment Note Visit Note 09/02 Visit Start Time 10:32 Visit Stop Time 11:13 Total Visit Minutes 41 Visit Number 17 Number of STRETCHING MACHINE TENDER FRAME Visits 1 Precautions Precautions Partial hip replacement in 2010, fall risk PT-OP-B Current Condition Start: 04/25/20 08:10 Freq: Status: Active Protocol: Document 04/25/20 08:11 AMB (Rec: 04/25/20 08:32 AMB [id number]) Current Condition History of Current Condition Onset Date Parkinson's Disease diagnosed in 1993 Current Complaints Unsteadiness with independent gait/transfers History of Current Condition Chief complaint of weakness and instability when standing. The patient has progressive parkinson's disease and is primarily taken care of by her . Her speech is quiet and she has a hard time speaking loudly so her does report some information. The patient fell in 2010 and had hip surgery due to a fractured femoral head that has not had an updated x-ray per the 's report since then she does report L sided hip pain and weakness. The patient's helps her transfer to the bed, the recliner, the car, and to the toilet to and from the wheelchair which the patient does help push with but has occasional freezing situations . He does have a caregiver come in once a week. Prior Treatments and Tests Has had PT in the past, currently sees Speech Therapy for swallowing and speech. Deep Brain Stimulator present. Personal Factors Other Personal Factors That May Effect 2 months ago- fell out of Therapy/Recovery chair forward while was driving it, foot caught on threshold. Trying to get out of bed independently has led to falls. thinks he does about 75% of the transfers. PT-OP-C Subjective Start: 04/25/20 08:10 Freq: Status: Active Protocol: Document 06/30/20 14:10 MA (Rec: 06/30/20 14:22 MA [email or web address]) OP-PT Subjective Patient Comments Patient Comments Pt states she is frustrated with her leg pain that seems to come and go when she walks at home. PT-OP-D Balance Start: 04/25/20 08:10 Freq: Status: Active Protocol: Document 04/25/20 08:15 AMB (Rec: 04/25/20 15:57 AMB [email or web address]) Balance Tests Other Other Balance Tests Performed Pt requires UE support to maintain standing, tends to lose balance posteriorly with sit to stand PT-OP-G Mobility & Gait Start: 04/25/20 08:10 Freq: Status: Active Protocol: Document 04/25/20 08:15 AMB (Rec: 04/25/20 15:57 AMB [email or web address]) OP Mobility Evaluation Bed Mobility Supine to and from Sit Wale with slow movement Transfers Sit to Stand Wale- loses balance posteriorly Bed to Chair Transfers Pt's assists at baseline- he thinks ModA, but pt is able to do more if given the time to do so. OP Gait Assessment Comments Gait Comments Scissoring gait and Trendelenburg gait with weakness in the hip on the left, worsens with fatigue. Pt ambulated wit 4WW 80 feet PT-OP-J Posture/Palpation/Skin Start: 04/25/20 08:10 Freq: Status: Active Protocol: Document 04/25/20 08:15 AMB (Rec: 04/25/20 15:57 AMB [email or web address]) Posture Evaluation Comments Posture Comments thoracic kyphosis and forward head PT-OP-M Strength Start: 04/25/20 08:10 Freq: Status: Active Protocol: Document 04/25/20 08:15 AMB (Rec: 04/25/20 15:57 AMB [email or web address]) Hip Strength Hip Manual Muscle Testing Right Flexion (L2) 4 Good Extension (S1) 4 Good Abduction 4 Good Left Flexion (L2) 4 Good Extension (S1) 3 Fair Abduction 3- Fair- PT-OP-Q Treatments Start: 04/25/20 08:10 Freq: Status: Active Protocol: Document 06/30/20 14:10 MA (Rec: 06/30/20 14:22 MA [email or web address]) Therapeutic Exercises Sidelying Exercises Abduction Side bilateral Reps/Minutes x10 Comments manual cues to avoid hip flexion 1 Sidelying Exercise Name Clamshell Side bilateral Reps/Minutes 2x10 fabiola Standing Exercises 3 Standing Exercise Name lumbar extension with // bar behind back Reps/Minutes 5 2 Standing Exercise Name sit<>Stand Reps/Minutes 8x Comments vc forward lean, Min A Other Exercises 1 Other Exercise Name quadruped LE flex/ext Comments difficult to maintain arm stability when moving L leg Therapeutic Activity Therapeutic Activity 2 Name sidelying<>quadruped Comments as a piece of floor transfer- SBA if rolled R Gait Training Gait Activity 1 Description 4WW walking Distance/Duration 1x100' Comments encouraged heel strike on R; focused on not adducting RLE and keeping pelvis stable. Walking in // bars Description weight shifts & high stepping Treatment Focus thoracic extension Comments Working on not letting L hip move laterally by blocking with therapists hip Manual Therapy Treatment Soft Tissue Mobilization Glutes Body Location L>R Mobilization Type Sustained Pressure,Trigger Point Release Intensity/Depth Moderate Body Position Sidelying Comments glue max & med Adductors Body Location Bilateral Mobilization Type Rolling,Sustained Pressure, Trigger Point Release Intensity/Depth Moderate Body Position Supine Comments LEs ER PT-OP-T Assessment and Plan Start: 04/25/20 08:10 Freq: Status: Active Protocol: Document 06/30/20 14:10 MA (Rec: 06/30/20 14:22 MA [email or web address]) Physical Therapy Assessment Goals Three Impairment Gait Short Term Goal (STG) Elise will ambulate with her 4WW for 1 minute with Wale. STG Duration MET Executive Account Manager Goal (LTG) Elise will ambulate with her 4WW without LOB or scissoring gait for 2 minutes. Scissoring gait continues- very dependent upon pain/ fatigue level LTG Duration 8 weeks Two Impairment Standing balance Short Term Goal (STG) Patient will be able to stand with 4WW with min A for 1 minutes. STG Duration MET Executive Account Manager Goal (LTG) Elise will move from sit to stand with Wale without LOB posteriorly. --Inconsistent LTG Duration 8 weeks 1 Impairment Transfers wc to mat table/bed Short Term Goal (STG) Patient will be min A with stand pivot transfer from wc to bed in 4-6 weeks. STG Duration MET Executive Account Manager Goal (LTG) Patient will perform all bed mobility with Wale.- pt can perform all bed mobility in the clinic on the treatment table with Wale-ModA ( sidelying to sit) but at home it sounds like her provides more assistance. LTG Duration 8 weeks Assessment Summary Assessment Pt felt popping over L glute and pain in L hip today with work in parallel bars. Worked on avoiding lateral shift of hips during L stance phase. STM to glutes after gave pt some relief. Worked on LE extension in quadraped with pt 's RUE giving out needing Mod A to regain elbow extension. Pt is discouraged with pain now in L side this week. Reminded pt how far she has come with therapy and explained that she most likely feels the popping because she shifts laterally to the L due to glute weakness. Physical Therapy Plan Frequency and Duration Frequency of Treatment 2x/Week Duration of Treatment 8 weeks Plan of Care Start Date 06/20/20 Plan of Care End Date 08/15/20 Therapeutic Interventions Therapeutic Interventions Balance Training,Gait Training ,Home Exercise Program,Manual Therapy,Neuromuscular Re- education,Self-Care/Home Management,Therapeutic Activities,Therapeutic Exercises Next Visit Focus/Plan Next Note Type Treatment Note Next Visit Plan Work on strengthening fabiola hips and avoiding lateral shift L during stance phase of gait and during weight shifts.
--- NOTE | 2020-07-05 11:58 | PT.OTN ---
Current Diagnoses Parkinson's disease (07/05/20) Other abnormalities of gait and mobility (07/05/20) Unspecified foreign body in respiratory tract, part unspecified causing other injury, sequela (07/05/20) History of falling (07/05/20) Physical Therapy Treatment Note PT-OP-A Visit Information Start: 04/25/20 08:10 Freq: Status: Active Protocol: Document 07/05/20 11:14 AMB (Rec: 07/05/20 11:58 AMB [id number]) Out-Patient Physical Therapy Visit Information Visit Information Visit Type Treatment Note Visit Note 10/02 Visit Start Time 11:00 Visit Stop Time 11:43 Total Visit Minutes 43 Visit Number 18 Number of BARTENDERS Visits 0 PT-OP-B Current Condition Start: 04/25/20 08:10 Freq: Status: Active Protocol: Document 04/25/20 08:11 AMB (Rec: 04/25/20 08:32 AMB [id number]) Current Condition History of Current Condition Onset Date Parkinson's Disease diagnosed in 1993 Current Complaints Unsteadiness with independent gait/transfers History of Current Condition Chief complaint of weakness and instability when standing. The patient has progressive parkinson's disease and is primarily taken care of by her . Her speech is quiet and she has a hard time speaking loudly so her does report some information. The patient fell in 2010 and had hip surgery due to a fractured femoral head that has not had an updated x-ray per the 's report since then she does report L sided hip pain and weakness. The patient's helps her transfer to the bed, the recliner, the car, and to the toilet to and from the wheelchair which the patient does help push with but has occasional freezing situations . He does have a caregiver come in once a week. Prior Treatments and Tests Has had PT in the past, currently sees Speech Therapy for swallowing and speech. Deep Brain Stimulator present. Personal Factors Other Personal Factors That May Effect 2 months ago- fell out of Therapy/Recovery chair forward while was driving it, foot caught on threshold. Trying to get out of bed independently has led to falls. thinks he does about 75% of the transfers. PT-OP-C Subjective Start: 04/25/20 08:10 Freq: Status: Active Protocol: Document 07/05/20 11:14 AMB (Rec: 07/05/20 11:58 AMB [id number]) OP-PT Subjective Patient Comments Patient Comments Pt reports no new falls, she is seeing a personal driver one day a week. PT-OP-D Balance Start: 04/25/20 08:10 Freq: Status: Active Protocol: Document 04/25/20 08:15 AMB (Rec: 04/25/20 15:57 AMB [email or web address]) Balance Tests Other Other Balance Tests Performed Pt requires UE support to maintain standing, tends to lose balance posteriorly with sit to stand PT-OP-G Mobility & Gait Start: 04/25/20 08:10 Freq: Status: Active Protocol: Document 04/25/20 08:15 AMB (Rec: 04/25/20 15:57 AMB [email or web address]) OP Mobility Evaluation Bed Mobility Supine to and from Sit Wale with slow movement Transfers Sit to Stand Wale- loses balance posteriorly Bed to Chair Transfers Pt's assists at baseline- he thinks ModA, but pt is able to do more if given the time to do so. OP Gait Assessment Comments Gait Comments Scissoring gait and Trendelenburg gait with weakness in the hip on the left, worsens with fatigue. Pt ambulated wit 4WW 80 feet PT-OP-J Posture/Palpation/Skin Start: 04/25/20 08:10 Freq: Status: Active Protocol: Document 04/25/20 08:15 AMB (Rec: 04/25/20 15:57 AMB [email or web address]) Posture Evaluation Comments Posture Comments thoracic kyphosis and forward head PT-OP-M Strength Start: 04/25/20 08:10 Freq: Status: Active Protocol: Document 04/25/20 08:15 AMB (Rec: 04/25/20 15:57 AMB [email or web address]) Hip Strength Hip Manual Muscle Testing Right Flexion (L2) 4 Good Extension (S1) 4 Good Abduction 4 Good Left Flexion (L2) 4 Good Extension (S1) 3 Fair Abduction 3- Fair- PT-OP-Q Treatments Start: 04/25/20 08:10 Freq: Status: Active Protocol: Document 07/05/20 11:14 AMB (Rec: 07/05/20 11:58 AMB [id number]) Therapeutic Exercises Supine Exercises 5 Supine Exercise Name hamstring stretch Reps/Minutes 30x2 Sidelying Exercises Abduction Side bilateral Reps/Minutes x10 Comments manual cues to avoid hip flexion 1 Sidelying Exercise Name Clamshell Side bilateral Reps/Minutes 2x10 fabiola Other Exercises 1 Other Exercise Name quadruped LE flex/ext Comments ball under chest- better stability Gait Training Gait Activity 1 Description 4WW walking Distance/Duration 2x100' Comments encouraged heel strike on R; focused on not adducting RLE and keeping pelvis stable. PT-OP-T Assessment and Plan Start: 04/25/20 08:10 Freq: Status: Active Protocol: Document 07/05/20 11:14 AMB (Rec: 07/05/20 11:58 AMB [id number]) Physical Therapy Assessment Goals Three Impairment Gait Short Term Goal (STG) Elise will ambulate with her 4WW for 1 minute with Wale. STG Duration MET Chief Security Officer Goal (LTG) Elise will ambulate with her 4WW without LOB or scissoring gait for 2 minutes. Scissoring gait continues- very dependent upon pain/ fatigue level LTG Duration 8 weeks Two Impairment Standing balance Short Term Goal (STG) Patient will be able to stand with 4WW with min A for 1 minutes. STG Duration MET Prison Goal (LTG) Elise will move from sit to stand with Wale without LOB posteriorly. --Inconsistent LTG Duration 8 weeks 1 Impairment Transfers wc to mat table/bed Short Term Goal (STG) Patient will be min A with stand pivot transfer from wc to bed in 4-6 weeks. STG Duration MET Chief Security Officer Goal (LTG) Patient will perform all bed mobility with Wale.- pt can perform all bed mobility in the clinic on the treatment table with Wale-ModA ( sidelying to sit) but at home it sounds like her provides more assistance. LTG Duration 8 weeks Assessment Summary Assessment No popping or hip pain today. Tried ankle brace that Si brought in, but she didn't like it as it caused ankle pain. Physical Therapy Plan Next Visit Focus/Plan Next Note Type Treatment Note Next Visit Plan Safety with gait, and form with gait, avoiding pelvic shift which is more apparent with walking longer distance
--- NOTE | 2020-07-07 11:16 | PT.OTN ---
Current Diagnoses Parkinson's disease (07/07/20) Other abnormalities of gait and mobility (07/07/20) Unspecified foreign body in respiratory tract, part unspecified causing other injury, sequela (07/07/20) History of falling (07/07/20) Physical Therapy Treatment Note PT-OP-A Visit Information Start: 04/25/20 08:10 Freq: Status: Active Protocol: Document 07/07/20 10:30 MA (Rec: 07/07/20 10:45 MA [id number]) Out-Patient Physical Therapy Visit Information Visit Information Visit Type Treatment Note Visit Note 11/02 Visit Start Time 10:25 Visit Stop Time 11:05 Total Visit Minutes 40 Visit Number 19 Number of PAINTER DECORATOR Visits 1 Precautions Precautions Partial hip replacement in 2010, fall risk PT-OP-B Current Condition Start: 04/25/20 08:10 Freq: Status: Active Protocol: Document 04/25/20 08:11 AMB (Rec: 04/25/20 08:32 AMB [id number]) Current Condition History of Current Condition Onset Date Parkinson's Disease diagnosed in 1993 Current Complaints Unsteadiness with independent gait/transfers History of Current Condition Chief complaint of weakness and instability when standing. The patient has progressive parkinson's disease and is primarily taken care of by her . Her speech is quiet and she has a hard time speaking loudly so her does report some information. The patient fell in 2010 and had hip surgery due to a fractured femoral head that has not had an updated x-ray per the 's report since then she does report L sided hip pain and weakness. The patient's helps her transfer to the bed, the recliner, the car, and to the toilet to and from the wheelchair which the patient does help push with but has occasional freezing situations . He does have a caregiver come in once a week. Prior Treatments and Tests Has had PT in the past, currently sees Speech Therapy for swallowing and speech. Deep Brain Stimulator present. Personal Factors Other Personal Factors That May Effect 2 months ago- fell out of Therapy/Recovery chair forward while was driving it, foot caught on threshold. Trying to get out of bed independently has led to falls. thinks he does about 75% of the transfers. PT-OP-C Subjective Start: 04/25/20 08:10 Freq: Status: Active Protocol: Document 07/07/20 10:30 MA (Rec: 07/07/20 10:45 MA [id number]) OP-PT Subjective Patient Comments Patient Comments Pt reports her R leg pain is still bothering her when she is sitting. PT-OP-D Balance Start: 04/25/20 08:10 Freq: Status: Active Protocol: Document 04/25/20 08:15 AMB (Rec: 04/25/20 15:57 AMB [email or web address]) Balance Tests Other Other Balance Tests Performed Pt requires UE support to maintain standing, tends to lose balance posteriorly with sit to stand PT-OP-G Mobility & Gait Start: 04/25/20 08:10 Freq: Status: Active Protocol: Document 04/25/20 08:15 AMB (Rec: 04/25/20 15:57 AMB [email or web address]) OP Mobility Evaluation Bed Mobility Supine to and from Sit Wale with slow movement Transfers Sit to Stand Wale- loses balance posteriorly Bed to Chair Transfers Pt's assists at baseline- he thinks ModA, but pt is able to do more if given the time to do so. OP Gait Assessment Comments Gait Comments Scissoring gait and Trendelenburg gait with weakness in the hip on the left, worsens with fatigue. Pt ambulated wit 4WW 80 feet PT-OP-J Posture/Palpation/Skin Start: 04/25/20 08:10 Freq: Status: Active Protocol: Document 04/25/20 08:15 AMB (Rec: 04/25/20 15:57 AMB [email or web address]) Posture Evaluation Comments Posture Comments thoracic kyphosis and forward head PT-OP-M Strength Start: 04/25/20 08:10 Freq: Status: Active Protocol: Document 04/25/20 08:15 AMB (Rec: 04/25/20 15:57 AMB [email or web address]) Hip Strength Hip Manual Muscle Testing Right Flexion (L2) 4 Good Extension (S1) 4 Good Abduction 4 Good Left Flexion (L2) 4 Good Extension (S1) 3 Fair Abduction 3- Fair- PT-OP-Q Treatments Start: 04/25/20 08:10 Freq: Status: Active Protocol: Document 07/07/20 10:45 MA (Rec: 07/07/20 11:08 MA [id number]) Therapeutic Exercises Supine Exercises 5 Supine Exercise Name hamstring stretch, butterfly stretch (adductors) Side bilateral Reps/Minutes 30x2 2 Supine Exercise Name bridges Reps/Minutes 2x8 Comments keepig knees apart, feet hip width; avoiding adduction Sidelying Exercises Abduction Side bilateral Reps/Minutes x10 Comments manual cues to avoid hip flexion 1 Sidelying Exercise Name Clamshell Side bilateral Reps/Minutes 2x10 fabiola Gait Training Gait Activity 1 Description 4WW walking Distance/Duration 3x100' Comments encouraged heel strike on R; focused on not adducting RLE and keeping pelvis stable; thoracic extension Manual Therapy Treatment Soft Tissue Mobilization Glutes Body Location R Mobilization Type Sustained Pressure,Trigger Point Release Intensity/Depth Moderate Body Position Sidelying Comments glue max & med HS Body Location R HS Mobilization Type Rolling,Sustained Pressure, Trigger Point Release Intensity/Depth Moderate Body Position Supine Comments Leg up on therapists shd PT-OP-T Assessment and Plan Start: 04/25/20 08:10 Freq: Status: Active Protocol: Document 07/07/20 11:08 MA (Rec: 07/07/20 11:16 MA [id number]) Physical Therapy Assessment Goals Three Impairment Gait Short Term Goal (STG) Elise will ambulate with her 4WW for 1 minute with Wale. STG Duration MET Care Home Goal (LTG) Elise will ambulate with her 4WW without LOB or scissoring gait for 2 minutes. Scissoring gait continues- very dependent upon pain/ fatigue level LTG Duration 8 weeks Two Impairment Standing balance Short Term Goal (STG) Patient will be able to stand with 4WW with min A for 1 minutes. STG Duration MET Hr Intern Goal (LTG) Elise will move from sit to stand with Wale without LOB posteriorly. --Inconsistent LTG Duration 8 weeks 1 Impairment Transfers wc to mat table/bed Short Term Goal (STG) Patient will be min A with stand pivot transfer from wc to bed in 4-6 weeks. STG Duration MET Care Home Goal (LTG) Patient will perform all bed mobility with Wale.- pt can perform all bed mobility in the clinic on the treatment table with Wale-ModA ( sidelying to sit) but at home it sounds like her provides more assistance. LTG Duration 8 weeks Assessment Summary Assessment Pt had no pain in LLE today but had her usual R LE pain along lateral HS during SL exercises, needing Min A for SL abduction. Her gait has improved with pt's lateral hip shift improving if cued for RUE extension and thoracic extension. If not cued she will lean heavily on RUE causing excessive lateral lean with forward flexed posture. Pt needed only CGA for transfer from mat table to w/c at end of session showing improvement from usual posterior pushing. Physical Therapy Plan Frequency and Duration Frequency of Treatment 2x/Week Duration of Treatment 8 weeks Plan of Care Start Date 06/20/20 Plan of Care End Date 08/15/20 Therapeutic Interventions Therapeutic Interventions Balance Training,Gait Training ,Home Exercise Program,Manual Therapy,Neuromuscular Re- education,Self-Care/Home Management,Therapeutic Activities,Therapeutic Exercises Next Visit Focus/Plan Next Note Type Treatment Note Next Visit Plan Focus on RUE extension, thoracic extension and avoiding lateral shift of pelvis during gait. Continue strengthening bilateral hips and stretching R HS as needed for pain
--- NOTE | 2020-07-19 13:19 | PT.OTN ---
Current Diagnoses Parkinson's disease (07/19/20) Other abnormalities of gait and mobility (07/19/20) Unspecified foreign body in respiratory tract, part unspecified causing other injury, sequela (07/19/20) History of falling (07/19/20) Physical Therapy Treatment Note PT-OP-A Visit Information Start: 04/25/20 08:10 Freq: Status: Active Protocol: Document 07/19/20 09:36 MA (Rec: 07/19/20 10:15 MA [id number]) Out-Patient Physical Therapy Visit Information Visit Information Visit Type Treatment Note Visit Start Time 09:30 Visit Stop Time 10:12 Total Visit Minutes 42 Visit Number 20 Number of RADIOLOGIC TECHNOLOGIST CHIEF Visits 2 PT-OP-B Current Condition Start: 04/25/20 08:10 Freq: Status: Active Protocol: Document 04/25/20 08:11 AMB (Rec: 04/25/20 08:32 AMB [id number]) Current Condition History of Current Condition Onset Date Parkinson's Disease diagnosed in 1993 Current Complaints Unsteadiness with independent gait/transfers History of Current Condition Chief complaint of weakness and instability when standing. The patient has progressive parkinson's disease and is primarily taken care of by her . Her speech is quiet and she has a hard time speaking loudly so her does report some information. The patient fell in 2010 and had hip surgery due to a fractured femoral head that has not had an updated x-ray per the 's report since then she does report L sided hip pain and weakness. The patient's helps her transfer to the bed, the recliner, the car, and to the toilet to and from the wheelchair which the patient does help push with but has occasional freezing situations . He does have a caregiver come in once a week. Prior Treatments and Tests Has had PT in the past, currently sees Speech Therapy for swallowing and speech. Deep Brain Stimulator present. Personal Factors Other Personal Factors That May Effect 2 months ago- fell out of Therapy/Recovery chair forward while was driving it, foot caught on threshold. Trying to get out of bed independently has led to falls. thinks he does about 75% of the transfers. PT-OP-C Subjective Start: 04/25/20 08:10 Freq: Status: Active Protocol: Document 07/19/20 09:36 MA (Rec: 07/19/20 10:15 MA [id number]) OP-PT Subjective Patient Comments Patient Comments Pt got botox and shows bruising on R eyelid. She states her huband doesn't let her walk with the walker at home, but istead she holds his arms. PT-OP-D Balance Start: 04/25/20 08:10 Freq: Status: Active Protocol: Document 04/25/20 08:15 AMB (Rec: 04/25/20 15:57 AMB [email or web address]) Balance Tests Other Other Balance Tests Performed Pt requires UE support to maintain standing, tends to lose balance posteriorly with sit to stand PT-OP-G Mobility & Gait Start: 04/25/20 08:10 Freq: Status: Active Protocol: Document 04/25/20 08:15 AMB (Rec: 04/25/20 15:57 AMB [email or web address]) OP Mobility Evaluation Bed Mobility Supine to and from Sit Wale with slow movement Transfers Sit to Stand Wale- loses balance posteriorly Bed to Chair Transfers Pt's assists at baseline- he thinks ModA, but pt is able to do more if given the time to do so. OP Gait Assessment Comments Gait Comments Scissoring gait and Trendelenburg gait with weakness in the hip on the left, worsens with fatigue. Pt ambulated wit 4WW 80 feet PT-OP-J Posture/Palpation/Skin Start: 04/25/20 08:10 Freq: Status: Active Protocol: Document 04/25/20 08:15 AMB (Rec: 04/25/20 15:57 AMB [email or web address]) Posture Evaluation Comments Posture Comments thoracic kyphosis and forward head PT-OP-M Strength Start: 04/25/20 08:10 Freq: Status: Active Protocol: Document 04/25/20 08:15 AMB (Rec: 04/25/20 15:57 AMB [email or web address]) Hip Strength Hip Manual Muscle Testing Right Flexion (L2) 4 Good Extension (S1) 4 Good Abduction 4 Good Left Flexion (L2) 4 Good Extension (S1) 3 Fair Abduction 3- Fair- PT-OP-Q Treatments Start: 04/25/20 08:10 Freq: Status: Active Protocol: Document 07/19/20 09:36 MA (Rec: 07/19/20 10:15 MA [id number]) Therapeutic Exercises Supine Exercises 2 Supine Exercise Name bridges Reps/Minutes 2x8 Comments keepig knees apart, feet hip width; avoiding adduction Sidelying Exercises Abduction Side bilateral Reps/Minutes 2x8 fabiola Comments Min A for LLE 1 Sidelying Exercise Name Clamshell Side bilateral Reps/Minutes 2x8 fabiola Sitting Exercises seated ankle dorsi/plantarflexion/ankle rotation Sitting Exercise Name DF/PF only today Side bilateral Reps/Minutes 2x10 ea Gait Training Gait Activity 1 Description 4WW walking Distance/Duration 3x100' Comments encouraged heel strike on R; focused on not adducting RLE and keeping pelvis stable; thoracic extension Manual Therapy Treatment Soft Tissue Mobilization Glutes Body Location L Mobilization Type Sustained Pressure,Trigger Point Release Intensity/Depth Moderate Body Position Sidelying Comments glue max & med HS Body Location R HS Mobilization Type Rolling,Sustained Pressure, Trigger Point Release Intensity/Depth Moderate Body Position Supine Comments Leg up on therapists shd Adductors Body Location Bilateral Mobilization Type Rolling,Sustained Pressure, Trigger Point Release Intensity/Depth Moderate Body Position Supine Comments LEs ER Manual Techniques PROM Type L hip, all planes Body Position Supine Comments Pt is limitedinto Abd Self-Care/Home Management Treatment Education Caregiver Education Discussed letting pt use walker at home to hold herself up instead of walking holding onto husbands arms. PT-OP-T Assessment and Plan Start: 04/25/20 08:10 Freq: Status: Active Protocol: Document 07/19/20 09:36 MA (Rec: 07/19/20 10:15 MA [id number]) Physical Therapy Assessment Goals Three Impairment Gait Short Term Goal (STG) Elise will ambulate with her 4WW for 1 minute with Wale. STG Duration MET Skilled Nursing Goal (LTG) Elise will ambulate with her 4WW without LOB or scissoring gait for 2 minutes. Scissoring gait continues- very dependent upon pain/ fatigue level LTG Duration 8 weeks Two Impairment Standing balance Short Term Goal (STG) Patient will be able to stand with 4WW with min A for 1 minutes. STG Duration MET 4Th Grade Math Teacher Goal (LTG) Elise will move from sit to stand with Wale without LOB posteriorly. --Inconsistent LTG Duration 8 weeks 1 Impairment Transfers wc to mat table/bed Short Term Goal (STG) Patient will be min A with stand pivot transfer from wc to bed in 4-6 weeks. STG Duration MET Skilled Nursing Goal (LTG) Patient will perform all bed mobility with Wale.- pt can perform all bed mobility in the clinic on the treatment table with Wale-ModA ( sidelying to sit) but at home it sounds like her provides more assistance. LTG Duration 8 weeks Assessment Summary Assessment Pt's LLE is limited into abduction, likely due to tight adductors. Worked on L hip PROM, stretching into abduction. Pt talked about how she does not like walking with at home and would prefer to use walker. Discussed with letting pt use her walker so she has to work harder for thoracic extension. stating he walks her so that she is forced to stand tall and he can encourage her to keep her head up. Pt did well with gait training during session and was able to control L lateral shift of pelvis until she would begin to fatigue. Pt is doing well with therapy and would continue to benefit from therapy for strengthening, balance, and stretching adductors. Physical Therapy Plan Frequency and Duration Frequency of Treatment 2x/Week Duration of Treatment 8 weeks Plan of Care Start Date 06/20/20 Plan of Care End Date 08/15/20 Therapeutic Interventions Therapeutic Interventions Balance Training,Gait Training ,Home Exercise Program,Manual Therapy,Neuromuscular Re- education,Self-Care/Home Management,Therapeutic Activities,Therapeutic Exercises Next Visit Focus/Plan Next Note Type Treatment Note Next Visit Plan STM to adductors, stretches into abduction on LLE and continue with R HS STM as needed. Focus on RUE extension , thoracic extension, heel strike, and avoiding lateral shift of pelvis during gait.
--- NOTE | 2020-07-24 15:33 | PT.OTN ---
Current Diagnoses Parkinson's disease (07/24/20) Other abnormalities of gait and mobility (07/24/20) Unspecified foreign body in respiratory tract, part unspecified causing other injury, sequela (07/24/20) History of falling (07/24/20) Physical Therapy Treatment Note PT-OP-A Visit Information Start: 04/25/20 08:10 Freq: Status: Active Protocol: Document 07/24/20 14:30 AMB (Rec: 07/24/20 15:03 AMB [id number]) Out-Patient Physical Therapy Visit Information Visit Information Visit Type Treatment Note Visit Note 01/02 Visit Start Time 14:30 Visit Stop Time 15:15 Total Visit Minutes 45 Visit Number 21 Number of REHAB DIRECTOR Visits 0 PT-OP-B Current Condition Start: 04/25/20 08:10 Freq: Status: Active Protocol: Document 04/25/20 08:11 AMB (Rec: 04/25/20 08:32 AMB [id number]) Current Condition History of Current Condition Onset Date Parkinson's Disease diagnosed in 1993 Current Complaints Unsteadiness with independent gait/transfers History of Current Condition Chief complaint of weakness and instability when standing. The patient has progressive parkinson's disease and is primarily taken care of by her . Her speech is quiet and she has a hard time speaking loudly so her does report some information. The patient fell in 2010 and had hip surgery due to a fractured femoral head that has not had an updated x-ray per the 's report since then she does report L sided hip pain and weakness. The patient's helps her transfer to the bed, the recliner, the car, and to the toilet to and from the wheelchair which the patient does help push with but has occasional freezing situations . He does have a caregiver come in once a week. Prior Treatments and Tests Has had PT in the past, currently sees Speech Therapy for swallowing and speech. Deep Brain Stimulator present. Personal Factors Other Personal Factors That May Effect 2 months ago- fell out of Therapy/Recovery chair forward while was driving it, foot caught on threshold. Trying to get out of bed independently has led to falls. thinks he does about 75% of the transfers. PT-OP-C Subjective Start: 04/25/20 08:10 Freq: Status: Active Protocol: Document 07/24/20 14:30 AMB (Rec: 07/24/20 15:03 AMB [id number]) OP-PT Subjective Patient Comments Patient Comments Pt comes into appt with R sided buttock hamstring pain . states her has been letting her walk with her walker. PT-OP-D Balance Start: 04/25/20 08:10 Freq: Status: Active Protocol: Document 04/25/20 08:15 AMB (Rec: 04/25/20 15:57 AMB [email or web address]) Balance Tests Other Other Balance Tests Performed Pt requires UE support to maintain standing, tends to lose balance posteriorly with sit to stand PT-OP-G Mobility & Gait Start: 04/25/20 08:10 Freq: Status: Active Protocol: Document 04/25/20 08:15 AMB (Rec: 04/25/20 15:57 AMB [email or web address]) OP Mobility Evaluation Bed Mobility Supine to and from Sit Wale with slow movement Transfers Sit to Stand Wale- loses balance posteriorly Bed to Chair Transfers Pt's assists at baseline- he thinks ModA, but pt is able to do more if given the time to do so. OP Gait Assessment Comments Gait Comments Scissoring gait and Trendelenburg gait with weakness in the hip on the left, worsens with fatigue. Pt ambulated wit 4WW 80 feet PT-OP-J Posture/Palpation/Skin Start: 04/25/20 08:10 Freq: Status: Active Protocol: Document 04/25/20 08:15 AMB (Rec: 04/25/20 15:57 AMB [email or web address]) Posture Evaluation Comments Posture Comments thoracic kyphosis and forward head PT-OP-M Strength Start: 04/25/20 08:10 Freq: Status: Active Protocol: Document 04/25/20 08:15 AMB (Rec: 04/25/20 15:57 AMB [email or web address]) Hip Strength Hip Manual Muscle Testing Right Flexion (L2) 4 Good Extension (S1) 4 Good Abduction 4 Good Left Flexion (L2) 4 Good Extension (S1) 3 Fair Abduction 3- Fair- PT-OP-Q Treatments Start: 04/25/20 08:10 Freq: Status: Active Protocol: Document 07/24/20 14:15 AMB (Rec: 07/24/20 15:32 AMB [id number]) Therapeutic Exercises Standing Exercises 3 Standing Exercise Name lumbar extension with // bar behind back Reps/Minutes 5 2 Standing Exercise Name sit<>Stand, pause right before full sit and stand back up Reps/Minutes 8x Comments vc forward lean 1 Standing Exercise Name upright standing Comments standing with even weightbearing, facilitate thoracic ext Gait Training Gait Activity 1 Description 4WW walking Distance/Duration 2x100' Comments encouraged heel strike on R; focused on not adducting RLE and keeping pelvis stable; thoracic extension Manual Therapy Treatment Soft Tissue Mobilization HS Body Location R HS Mobilization Type Rolling,Sustained Pressure, Trigger Point Release Intensity/Depth Moderate Body Position Supine Comments Leg up on therapists shd Manual Techniques PROM Type L/R hip, all planes Body Position Supine Comments Pt is limitedinto Abd PT-OP-T Assessment and Plan Start: 04/25/20 08:10 Freq: Status: Active Protocol: Document 07/24/20 14:15 AMB (Rec: 07/24/20 15:32 AMB [id number]) Physical Therapy Assessment Assessment Summary Assessment Pt had decreased pain s/p STM and exercise before walking. Does report is letting her use the walker to walk, and he reports he has been helping her with her R LE pain . Physical Therapy Plan Next Visit Focus/Plan Next Note Type Treatment Note Next Visit Plan STM to adductors, stretches into abduction on LLE and continue with R HS STM as needed. Focus on RUE extension , thoracic extension, heel strike, and avoiding lateral shift of pelvis during gait.
--- NOTE | 2020-07-28 16:08 | PT.OTN ---
Current Diagnoses Parkinson's disease (07/28/20) Other abnormalities of gait and mobility (07/28/20) Unspecified foreign body in respiratory tract, part unspecified causing other injury, sequela (07/28/20) History of falling (07/28/20) Physical Therapy Treatment Note PT-OP-A Visit Information Start: 04/25/20 08:10 Freq: Status: Active Protocol: Document 07/28/20 12:45 AMB (Rec: 07/28/20 16:08 AMB [email or web address]) Out-Patient Physical Therapy Visit Information Visit Information Visit Type Treatment Note Visit Note 02/02 Visit Start Time 12:45 Visit Stop Time 13:30 Total Visit Minutes 45 Visit Number 22 PT-OP-B Current Condition Start: 04/25/20 08:10 Freq: Status: Active Protocol: Document 04/25/20 08:11 AMB (Rec: 04/25/20 08:32 AMB [id number]) Current Condition History of Current Condition Onset Date Parkinson's Disease diagnosed in 1993 Current Complaints Unsteadiness with independent gait/transfers History of Current Condition Chief complaint of weakness and instability when standing. The patient has progressive parkinson's disease and is primarily taken care of by her . Her speech is quiet and she has a hard time speaking loudly so her does report some information. The patient fell in 2010 and had hip surgery due to a fractured femoral head that has not had an updated x-ray per the 's report since then she does report L sided hip pain and weakness. The patient's helps her transfer to the bed, the recliner, the car, and to the toilet to and from the wheelchair which the patient does help push with but has occasional freezing situations . He does have a caregiver come in once a week. Prior Treatments and Tests Has had PT in the past, currently sees Speech Therapy for swallowing and speech. Deep Brain Stimulator present. Personal Factors Other Personal Factors That May Effect 2 months ago- fell out of Therapy/Recovery chair forward while was driving it, foot caught on threshold. Trying to get out of bed independently has led to falls. thinks he does about 75% of the transfers. PT-OP-C Subjective Start: 04/25/20 08:10 Freq: Status: Active Protocol: Document 07/28/20 12:45 AMB (Rec: 07/28/20 16:08 AMB [email or web address]) OP-PT Subjective Patient Comments Patient Comments Pt attends without pain complaints today, states she did walk with her with the walker yesterday. PT-OP-D Balance Start: 04/25/20 08:10 Freq: Status: Active Protocol: Document 04/25/20 08:15 AMB (Rec: 04/25/20 15:57 AMB [email or web address]) Balance Tests Other Other Balance Tests Performed Pt requires UE support to maintain standing, tends to lose balance posteriorly with sit to stand PT-OP-G Mobility & Gait Start: 04/25/20 08:10 Freq: Status: Active Protocol: Document 04/25/20 08:15 AMB (Rec: 04/25/20 15:57 AMB [email or web address]) OP Mobility Evaluation Bed Mobility Supine to and from Sit Wale with slow movement Transfers Sit to Stand Wale- loses balance posteriorly Bed to Chair Transfers Pt's assists at baseline- he thinks ModA, but pt is able to do more if given the time to do so. OP Gait Assessment Comments Gait Comments Scissoring gait and Trendelenburg gait with weakness in the hip on the left, worsens with fatigue. Pt ambulated wit 4WW 80 feet PT-OP-J Posture/Palpation/Skin Start: 04/25/20 08:10 Freq: Status: Active Protocol: Document 04/25/20 08:15 AMB (Rec: 04/25/20 15:57 AMB [email or web address]) Posture Evaluation Comments Posture Comments thoracic kyphosis and forward head PT-OP-M Strength Start: 04/25/20 08:10 Freq: Status: Active Protocol: Document 04/25/20 08:15 AMB (Rec: 04/25/20 15:57 AMB [email or web address]) Hip Strength Hip Manual Muscle Testing Right Flexion (L2) 4 Good Extension (S1) 4 Good Abduction 4 Good Left Flexion (L2) 4 Good Extension (S1) 3 Fair Abduction 3- Fair- PT-OP-Q Treatments Start: 04/25/20 08:10 Freq: Status: Active Protocol: Document 07/28/20 12:45 AMB (Rec: 07/28/20 16:08 AMB [email or web address]) Therapeutic Exercises Standing Exercises 3 Standing Exercise Name lumbar extension with // bar behind back Reps/Minutes 5 Gait Training Gait Activity 1 Description 4WW walking Distance/Duration 2x150' Comments encouraged heel strike on R; focused on not adducting RLE and keeping pelvis stable; thoracic extension Neuro Re-Education Treatment Balance Activities 2 Details stride stance Comments 1 hand support on 4WW then no support, pt tends to lose balance posteriorly, max of 12 seconds without needing Wale 1 Details WBOS Comments without UE support PT-OP-T Assessment and Plan Start: 04/25/20 08:10 Freq: Status: Active Protocol: Document 07/28/20 12:45 AMB (Rec: 07/28/20 16:08 AMB [email or web address]) Physical Therapy Assessment Goals Three Impairment Gait Short Term Goal (STG) Elise will ambulate with her 4WW for 1 minute with Wale. STG Duration MET Mcc Goal (LTG) Elise will ambulate with her 4WW without LOB or scissoring gait for 2 minutes. Scissoring gait continues- very dependent upon pain/ fatigue level LTG Duration 8 weeks Two Impairment Standing balance Short Term Goal (STG) Patient will be able to stand with 4WW with min A for 1 minutes. STG Duration MET Mcc Goal (LTG) Elise will move from sit to stand with Wale without LOB posteriorly. --Inconsistent LTG Duration 8 weeks 1 Impairment Transfers wc to mat table/bed Short Term Goal (STG) Patient will be min A with stand pivot transfer from wc to bed in 4-6 weeks. STG Duration MET Motor Setter Goal (LTG) Patient will perform all bed mobility with Wale.- pt can perform all bed mobility in the clinic on the treatment table with Wale-ModA ( sidelying to sit) but at home it sounds like her provides more assistance. LTG Duration 8 weeks Assessment Summary Assessment Pt did not notice pain today. When asked what her goals for continuing therapy were, she talked about hiking. Explained to pt that this may be a lofty goal, but we could work on her walking out on her patio, or work on standing balance. Pt continues to have significant posterior lean, and did have mild back pain when trying to stand upright during today's session. Physical Therapy Plan Next Visit Focus/Plan Next Note Type Progress Note Next Visit Plan progress note next visit
--- NOTE | 2020-07-31 14:05 | PT.OTN ---
Current Diagnoses Parkinson's disease (07/31/20) Other abnormalities of gait and mobility (07/31/20) Unspecified foreign body in respiratory tract, part unspecified causing other injury, sequela (07/31/20) History of falling (07/31/20) Physical Therapy Treatment Note PT-OP-A Visit Information Start: 04/25/20 08:10 Freq: Status: Active Protocol: Document 07/31/20 12:45 AMB (Rec: 07/31/20 13:49 AMB [id number]) Out-Patient Physical Therapy Visit Information Visit Information Visit Type Progress Note Visit Note 06/04 Visit Start Time 12:45 Visit Stop Time 13:30 Total Visit Minutes 45 Visit Number 23 PT-OP-B Current Condition Start: 04/25/20 08:10 Freq: Status: Active Protocol: Document 04/25/20 08:11 AMB (Rec: 04/25/20 08:32 AMB [id number]) Current Condition History of Current Condition Onset Date Parkinson's Disease diagnosed in 1993 Current Complaints Unsteadiness with independent gait/transfers History of Current Condition Chief complaint of weakness and instability when standing. The patient has progressive parkinson's disease and is primarily taken care of by her . Her speech is quiet and she has a hard time speaking loudly so her does report some information. The patient fell in 2010 and had hip surgery due to a fractured femoral head that has not had an updated x-ray per the 's report since then she does report L sided hip pain and weakness. The patient's helps her transfer to the bed, the recliner, the car, and to the toilet to and from the wheelchair which the patient does help push with but has occasional freezing situations . He does have a caregiver come in once a week. Prior Treatments and Tests Has had PT in the past, currently sees Speech Therapy for swallowing and speech. Deep Brain Stimulator present. Personal Factors Other Personal Factors That May Effect 2 months ago- fell out of Therapy/Recovery chair forward while was driving it, foot caught on threshold. Trying to get out of bed independently has led to falls. thinks he does about 75% of the transfers. PT-OP-C Subjective Start: 04/25/20 08:10 Freq: Status: Active Protocol: Document 07/31/20 12:45 AMB (Rec: 07/31/20 14:04 AMB [email or web address]) OP-PT Subjective Patient Comments Patient Comments Pt's states pt continues to try to transfer herself in their home when he is not in the room and this is concerning to him. PT-OP-D Balance Start: 04/25/20 08:10 Freq: Status: Active Protocol: Document 07/31/20 13:01 AMB (Rec: 07/31/20 13:09 AMB [id number]) OP-PT Balance Assessment Standing Balance Standing Balance Comments 30 seconds James Fall Scale Copyright Permission PT-OP-G Mobility & Gait Start: 04/25/20 08:10 Freq: Status: Active Protocol: Document 07/31/20 12:45 AMB (Rec: 07/31/20 13:48 AMB [email or web address]) OP Mobility Evaluation Bed Mobility Supine to and from Sit SBA when coming up into a sit up Transfers Sit to Stand Occassional Wale can be SBA at times OP Gait Assessment Comments Gait Comments Pt ambulates 200' with 4WW with scissoring gait and trendelenburg gait, worse with turning and backing up, difficulty maintaining upright posture. PT-OP-J Posture/Palpation/Skin Start: 04/25/20 08:10 Freq: Status: Active Protocol: Document 04/25/20 08:15 AMB (Rec: 04/25/20 15:57 AMB [email or web address]) Posture Evaluation Comments Posture Comments thoracic kyphosis and forward head PT-OP-M Strength Start: 04/25/20 08:10 Freq: Status: Active Protocol: Document 07/31/20 13:01 AMB (Rec: 07/31/20 13:09 AMB [id number]) Hip Strength Hip Manual Muscle Testing Left Flexion (L2) 4 Good Extension (S1) 3 Fair Abduction 3 Fair PT-OP-Q Treatments Start: 04/25/20 08:10 Freq: Status: Active Protocol: Document 07/31/20 12:45 AMB (Rec: 07/31/20 14:04 AMB [email or web address]) Gym Equipment Shuttle Recovery Bilateral Squats Resistance 75 Shuttle Recovery Platform Stable Reps/Time 3x10 Therapeutic Exercises Standing Exercises 3 Standing Exercise Name lumbar extension with // bar behind back Reps/Minutes 5 Gait Training Gait Activity 1 Description 4WW walking Distance/Duration 2x150' Comments encouraged heel strike on R; focused on not adducting RLE and keeping pelvis stable; thoracic extension Manual Therapy Treatment Soft Tissue Mobilization HS Body Location R HS Mobilization Type Rolling,Sustained Pressure, Trigger Point Release Intensity/Depth Moderate Body Position Supine Comments Leg up on therapists shd with contract relax Adductors Body Location Bilateral Mobilization Type Rolling,Sustained Pressure, Trigger Point Release Intensity/Depth Moderate Body Position Supine Comments LEs ER Neuro Re-Education Treatment Balance Activities 1 Details WBOS Comments without UE support- 30 sec to 1 min PT-OP-T Assessment and Plan Start: 04/25/20 08:10 Freq: Status: Active Protocol: Document 07/31/20 12:45 AMB (Rec: 07/31/20 14:04 AMB [email or web address]) Physical Therapy Assessment Goals Three Impairment Gait Short Term Goal (STG) Elise will ambulate with her 4WW for 1 minute with Wale. STG Duration MET Assisted Goal (LTG) Elise will ambulate with her 4WW without LOB or scissoring gait for 2 minutes. Scissoring gait continues- very dependent upon pain/ fatigue level LTG Duration 8 weeks Two Impairment Standing balance Short Term Goal (STG) Patient will be able to stand with 4WW with min A for 1 minutes. STG Duration MET Sheet Metal Helper Goal (LTG) Elise will move from sit to stand with Wale without LOB posteriorly. --Inconsistent LTG Duration 8 weeks 1 Impairment Transfers wc to mat table/bed Short Term Goal (STG) Patient will be min A with stand pivot transfer from wc to bed in 4-6 weeks. STG Duration MET Sheet Metal Helper Goal (LTG) Patient will perform all bed mobility with Wale.- pt can perform all bed mobility in the clinic on the treatment table with Wale-ModA, or even SBA at times (sidelying to sit ) but at home it sounds like her provides more assistance. LTG Duration 8 weeks Assessment Summary Assessment Pt had some discomfort with right hamstring today, but was able to tolerate gait, strengthening, and balance well. Some difficulty navigating transfers when backing up or moving to the side. Physical Therapy Plan Next Visit Focus/Plan Next Note Type Treatment Note Next Visit Plan Continue manual therapy as needed for pain, encourage upright posture, hip stability with gait, gait/transfer safety
--- NOTE | 2020-08-04 12:58 | PT.OTN ---
Current Diagnoses Parkinson's disease (08/04/20) Other abnormalities of gait and mobility (08/04/20) Unspecified foreign body in respiratory tract, part unspecified causing other injury, sequela (08/04/20) History of falling (08/04/20) Physical Therapy Treatment Note PT-OP-A Visit Information Start: 04/25/20 08:10 Freq: Status: Active Protocol: Document 08/04/20 12:48 MA (Rec: 08/04/20 12:58 MA [email or web address]) Out-Patient Physical Therapy Visit Information Visit Information Visit Type Treatment Note Visit Note 07/05 Visit Start Time 12:00 Visit Stop Time 12:45 Total Visit Minutes 45 Visit Number 24 Number of REGIONAL TELECOMMUNICATIONS SPECIALIST Visits 1 Precautions Precautions Partial hip replacement in 2010, fall risk PT-OP-B Current Condition Start: 04/25/20 08:10 Freq: Status: Active Protocol: Document 04/25/20 08:11 AMB (Rec: 04/25/20 08:32 AMB [id number]) Current Condition History of Current Condition Onset Date Parkinson's Disease diagnosed in 1993 Current Complaints Unsteadiness with independent gait/transfers History of Current Condition Chief complaint of weakness and instability when standing. The patient has progressive parkinson's disease and is primarily taken care of by her . Her speech is quiet and she has a hard time speaking loudly so her does report some information. The patient fell in 2010 and had hip surgery due to a fractured femoral head that has not had an updated x-ray per the 's report since then she does report L sided hip pain and weakness. The patient's helps her transfer to the bed, the recliner, the car, and to the toilet to and from the wheelchair which the patient does help push with but has occasional freezing situations . He does have a caregiver come in once a week. Prior Treatments and Tests Has had PT in the past, currently sees Speech Therapy for swallowing and speech. Deep Brain Stimulator present. Personal Factors Other Personal Factors That May Effect 2 months ago- fell out of Therapy/Recovery chair forward while was driving it, foot caught on threshold. Trying to get out of bed independently has led to falls. thinks he does about 75% of the transfers. PT-OP-C Subjective Start: 04/25/20 08:10 Freq: Status: Active Protocol: Document 08/04/20 12:48 MA (Rec: 08/04/20 12:58 MA [email or web address]) OP-PT Subjective Patient Comments Patient Comments Pt states she has not been walking much in the house because her has been busy. states we went canoeing yesterday PT-OP-D Balance Start: 04/25/20 08:10 Freq: Status: Active Protocol: Document 07/31/20 13:01 AMB (Rec: 07/31/20 13:09 AMB [id number]) OP-PT Balance Assessment Standing Balance Standing Balance Comments 30 seconds James Fall Scale Copyright Permission PT-OP-G Mobility & Gait Start: 04/25/20 08:10 Freq: Status: Active Protocol: Document 07/31/20 12:45 AMB (Rec: 07/31/20 13:48 AMB [email or web address]) OP Mobility Evaluation Bed Mobility Supine to and from Sit SBA when coming up into a sit up Transfers Sit to Stand Occassional Wale can be SBA at times OP Gait Assessment Comments Gait Comments Pt ambulates 200' with 4WW with scissoring gait and trendelenburg gait, worse with turning and backing up, difficulty maintaining upright posture. PT-OP-J Posture/Palpation/Skin Start: 04/25/20 08:10 Freq: Status: Active Protocol: Document 04/25/20 08:15 AMB (Rec: 04/25/20 15:57 AMB [email or web address]) Posture Evaluation Comments Posture Comments thoracic kyphosis and forward head PT-OP-M Strength Start: 04/25/20 08:10 Freq: Status: Active Protocol: Document 07/31/20 13:01 AMB (Rec: 07/31/20 13:09 AMB [id number]) Hip Strength Hip Manual Muscle Testing Left Flexion (L2) 4 Good Extension (S1) 3 Fair Abduction 3 Fair PT-OP-Q Treatments Start: 04/25/20 08:10 Freq: Status: Active Protocol: Document 08/04/20 12:48 MA (Rec: 08/04/20 12:58 MA [email or web address]) Gym Equipment Shuttle Recovery Bilateral Squats Details one set 75#, 2 sets 87# Resistance 87 Shuttle Recovery Platform Stable Reps/Time 3x10 Therapeutic Exercises Standing Exercises Hip Strengthening Standing Exercise Name hip abd & hip flexion (march ) Side bilateral Equipment Used // bars Reps/Minutes 2 minutes 3 Standing Exercise Name lumbar extension with // bar behind back Reps/Minutes 5 1 Standing Exercise Name upright standing Comments standing with even weightbearing, facilitate thoracic ext Gait Training Gait Activity 1 Description 4WW walking Distance/Duration 2x300' Comments encouraged heel strike on R; focused on not adducting RLE and keeping pelvis stable; thoracic extension Manual Therapy Treatment Soft Tissue Mobilization Adductors Body Location Bilateral Mobilization Type Rolling,Sustained Pressure, Trigger Point Release Intensity/Depth Moderate Body Position Supine Comments LEs ER Manual Techniques PROM Type L/R hip, all planes Body Position Supine Comments Pt is limited into Abd Neuro Re-Education Treatment Balance Activities 2 Details stride stance Comments 1 hand support on 4WW then no support, pt tends to lose balance posteriorly, max of 12 seconds without needing Wale 1 Details WBOS Comments without UE support- 30 sec to 1 min PT-OP-T Assessment and Plan Start: 04/25/20 08:10 Freq: Status: Active Protocol: Document 08/04/20 12:48 MA (Rec: 08/04/20 12:58 MA [email or web address]) Physical Therapy Assessment Goals Three Impairment Gait Short Term Goal (STG) Elise will ambulate with her 4WW for 1 minute with Wale. STG Duration MET Intermediate Goal (LTG) Elise will ambulate with her 4WW without LOB or scissoring gait for 2 minutes. Scissoring gait continues- very dependent upon pain/ fatigue level LTG Duration 8 weeks Two Impairment Standing balance Short Term Goal (STG) Patient will be able to stand with 4WW with min A for 1 minutes. STG Duration MET Manager Banquet Goal (LTG) Elise will move from sit to stand with Wale without LOB posteriorly. --Inconsistent LTG Duration 8 weeks 1 Impairment Transfers wc to mat table/bed Short Term Goal (STG) Patient will be min A with stand pivot transfer from wc to bed in 4-6 weeks. STG Duration MET Manager Banquet Goal (LTG) Patient will perform all bed mobility with Wale.- pt can perform all bed mobility in the clinic on the treatment table with aWle-ModA, or even SBA at times (sidelying to sit ) but at home it sounds like her provides more assistance. LTG Duration 8 weeks Assessment Summary Assessment Elise's gait has improved with pt able to maintain better upright posture and less scissoring gait for longer distances. As she fatigues she needs more cues to keep upright posture. Pt has some difficulty in stride stance with LLE in front. She requested more weight during supine leg press and was able to complete 2 sets of 10 at 87 # today. Physical Therapy Plan Frequency and Duration Frequency of Treatment 2x/Week Duration of Treatment 8 weeks Plan of Care Start Date 06/20/20 Plan of Care End Date 08/15/20 Therapeutic Interventions Therapeutic Interventions Balance Training,Gait Training ,Home Exercise Program,Manual Therapy,Neuromuscular Re- education,Self-Care/Home Management,Therapeutic Activities,Therapeutic Exercises Next Visit Focus/Plan Next Note Type Treatment Note Next Visit Plan Continue manual therapy as needed for pain and balance work in stride stance without TELEGRAPH OPERATOR, encourage upright posture , hip stability with gait, gait/transfer safety
--- NOTE | 2020-08-08 16:07 | PT.OTN ---
Current Diagnoses Parkinson's disease (08/08/20) Other abnormalities of gait and mobility (08/08/20) Unspecified foreign body in respiratory tract, part unspecified causing other injury, sequela (08/08/20) History of falling (08/08/20) Physical Therapy Treatment Note PT-OP-A Visit Information Start: 04/25/20 08:10 Freq: Status: Active Protocol: Document 08/08/20 13:30 AMB (Rec: 08/08/20 13:53 AMB [id number]) Out-Patient Physical Therapy Visit Information Visit Information Visit Type Treatment Note Visit Start Time 13:30 Visit Stop Time 14:15 Total Visit Minutes 45 Visit Number 25 PT-OP-B Current Condition Start: 04/25/20 08:10 Freq: Status: Active Protocol: Document 04/25/20 08:11 AMB (Rec: 04/25/20 08:32 AMB [id number]) Current Condition History of Current Condition Onset Date Parkinson's Disease diagnosed in 1993 Current Complaints Unsteadiness with independent gait/transfers History of Current Condition Chief complaint of weakness and instability when standing. The patient has progressive parkinson's disease and is primarily taken care of by her . Her speech is quiet and she has a hard time speaking loudly so her does report some information. The patient fell in 2010 and had hip surgery due to a fractured femoral head that has not had an updated x-ray per the 's report since then she does report L sided hip pain and weakness. The patient's helps her transfer to the bed, the recliner, the car, and to the toilet to and from the wheelchair which the patient does help push with but has occasional freezing situations . He does have a caregiver come in once a week. Prior Treatments and Tests Has had PT in the past, currently sees Speech Therapy for swallowing and speech. Deep Brain Stimulator present. Personal Factors Other Personal Factors That May Effect 2 months ago- fell out of Therapy/Recovery chair forward while was driving it, foot caught on threshold. Trying to get out of bed independently has led to falls. thinks he does about 75% of the transfers. PT-OP-C Subjective Start: 04/25/20 08:10 Freq: Status: Active Protocol: Document 08/08/20 13:30 AMB (Rec: 08/08/20 16:07 AMB [email or web address]) OP-PT Subjective Patient Comments Patient Comments Pt states that they went canoeing again on [address] on Friday. PT-OP-D Balance Start: 04/25/20 08:10 Freq: Status: Active Protocol: Document 07/31/20 13:01 AMB (Rec: 07/31/20 13:09 AMB [id number]) OP-PT Balance Assessment Standing Balance Standing Balance Comments 30 seconds James Fall Scale Copyright Permission PT-OP-G Mobility & Gait Start: 04/25/20 08:10 Freq: Status: Active Protocol: Document 07/31/20 12:45 AMB (Rec: 07/31/20 13:48 AMB [email or web address]) OP Mobility Evaluation Bed Mobility Supine to and from Sit SBA when coming up into a sit up Transfers Sit to Stand Occassional Wale can be SBA at times OP Gait Assessment Comments Gait Comments Pt ambulates 200' with 4WW with scissoring gait and trendelenburg gait, worse with turning and backing up, difficulty maintaining upright posture. PT-OP-J Posture/Palpation/Skin Start: 04/25/20 08:10 Freq: Status: Active Protocol: Document 04/25/20 08:15 AMB (Rec: 04/25/20 15:57 AMB [email or web address]) Posture Evaluation Comments Posture Comments thoracic kyphosis and forward head PT-OP-M Strength Start: 04/25/20 08:10 Freq: Status: Active Protocol: Document 07/31/20 13:01 AMB (Rec: 07/31/20 13:09 AMB [id number]) Hip Strength Hip Manual Muscle Testing Left Flexion (L2) 4 Good Extension (S1) 3 Fair Abduction 3 Fair PT-OP-Q Treatments Start: 04/25/20 08:10 Freq: Status: Active Protocol: Document 08/08/20 13:30 AMB (Rec: 08/08/20 16:07 AMB [email or web address]) Gym Equipment Shuttle Recovery Bilateral Squats Details one set 75#, 2 sets 87# Resistance 87 Shuttle Recovery Platform Stable Reps/Time 3x10 Therapeutic Exercises Standing Exercises Hip Strengthening Standing Exercise Name hip abd & hip flexion (march ) Side bilateral Equipment Used // bars Reps/Minutes 2 minutes 3 Standing Exercise Name lumbar extension with // bar behind back Reps/Minutes 5 Neuro Re-Education Treatment Balance Activities 2 Details stride stance Comments 1 hand support on 4WW then no support, pt tends to lose balance posteriorly, max of 12 seconds without needing Wale 1 Details WBOS Comments without UE support- 30 sec to 1 min PT-OP-T Assessment and Plan Start: 04/25/20 08:10 Freq: Status: Active Protocol: Document 08/08/20 13:30 AMB (Rec: 08/08/20 16:07 AMB [email or web address]) Physical Therapy Assessment Goals Three Impairment Gait Short Term Goal (STG) Elise will ambulate with her 4WW for 1 minute with Wale. STG Duration MET Assisted Goal (LTG) Elise will ambulate with her 4WW without LOB or scissoring gait for 2 minutes. Scissoring gait continues- very dependent upon pain/ fatigue level LTG Duration 8 weeks Two Impairment Standing balance Short Term Goal (STG) Patient will be able to stand with 4WW with min A for 1 minutes. STG Duration MET Assisted Goal (LTG) Elise will move from sit to stand with Wale without LOB posteriorly. --Inconsistent LTG Duration 8 weeks 1 Impairment Transfers wc to mat table/bed Short Term Goal (STG) Patient will be min A with stand pivot transfer from wc to bed in 4-6 weeks. STG Duration MET Housing Installer Goal (LTG) Patient will perform all bed mobility with Wale.- pt can perform all bed mobility in the clinic on the treatment table with Wale-ModA, or even SBA at times (sidelying to sit ) but at home it sounds like her provides more assistance. LTG Duration 8 weeks Assessment Summary Assessment Elise did have ischial tuberosity pain bilaterally today. she was able to progress with her balance. Physical Therapy Plan Next Visit Focus/Plan Next Note Type Treatment Note Next Visit Plan Continue manual therapy as needed for pain and balance work in stride stance without DIAMOND ASSORTER, encourage upright posture , hip stability with gait, gait/transfer safety
--- NOTE | 2020-08-11 12:51 | PT.OTN ---
Current Diagnoses Parkinson's disease (08/11/20) Other abnormalities of gait and mobility (08/11/20) Unspecified foreign body in respiratory tract, part unspecified causing other injury, sequela (08/11/20) History of falling (08/11/20) Physical Therapy Treatment Note PT-OP-A Visit Information Start: 04/25/20 08:10 Freq: Status: Active Protocol: Document 08/11/20 12:06 MA (Rec: 08/11/20 12:51 MA [id number]) Out-Patient Physical Therapy Visit Information Visit Information Visit Type Treatment Note Visit Start Time 12:00 Visit Stop Time 12:45 Total Visit Minutes 45 Visit Number 26 Number of LCAC OPERATOR Visits 1 Precautions Precautions Partial hip replacement in 2010, fall risk PT-OP-B Current Condition Start: 04/25/20 08:10 Freq: Status: Active Protocol: Document 04/25/20 08:11 AMB (Rec: 04/25/20 08:32 AMB [id number]) Current Condition History of Current Condition Onset Date Parkinson's Disease diagnosed in 1993 Current Complaints Unsteadiness with independent gait/transfers History of Current Condition Chief complaint of weakness and instability when standing. The patient has progressive parkinson's disease and is primarily taken care of by her . Her speech is quiet and she has a hard time speaking loudly so her does report some information. The patient fell in 2010 and had hip surgery due to a fractured femoral head that has not had an updated x-ray per the 's report since then she does report L sided hip pain and weakness. The patient's helps her transfer to the bed, the recliner, the car, and to the toilet to and from the wheelchair which the patient does help push with but has occasional freezing situations . He does have a caregiver come in once a week. Prior Treatments and Tests Has had PT in the past, currently sees Speech Therapy for swallowing and speech. Deep Brain Stimulator present. Personal Factors Other Personal Factors That May Effect 2 months ago- fell out of Therapy/Recovery chair forward while was driving it, foot caught on threshold. Trying to get out of bed independently has led to falls. thinks he does about 75% of the transfers. PT-OP-C Subjective Start: 04/25/20 08:10 Freq: Status: Active Protocol: Document 08/11/20 12:06 MA (Rec: 03/19/21 12:51 MA [id number]) OP-PT Subjective Patient Comments Patient Comments Last time we did the leg press I was sore for three days. I think I did too many. PT-OP-D Balance Start: 04/25/20 08:10 Freq: Status: Active Protocol: Document 07/31/20 13:01 AMB (Rec: 07/31/20 13:09 AMB [id number]) OP-PT Balance Assessment Standing Balance Standing Balance Comments 30 seconds James Fall Scale Copyright Permission PT-OP-G Mobility & Gait Start: 04/25/20 08:10 Freq: Status: Active Protocol: Document 07/31/20 12:45 AMB (Rec: 07/31/20 13:48 AMB [id number]) OP Mobility Evaluation Bed Mobility Supine to and from Sit SBA when coming up into a sit up Transfers Sit to Stand Occassional Wale can be SBA at times OP Gait Assessment Comments Gait Comments Pt ambulates 200' with 4WW with scissoring gait and trendelenburg gait, worse with turning and backing up, difficulty maintaining upright posture. PT-OP-J Posture/Palpation/Skin Start: 04/25/20 08:10 Freq: Status: Active Protocol: Document 04/25/20 08:15 AMB (Rec: 04/25/20 15:57 AMB [email or web address]) Posture Evaluation Comments Posture Comments thoracic kyphosis and forward head PT-OP-M Strength Start: 04/25/20 08:10 Freq: Status: Active Protocol: Document 07/31/20 13:01 AMB (Rec: 07/31/20 13:09 AMB [id number]) Hip Strength Hip Manual Muscle Testing Left Flexion (L2) 4 Good Extension (S1) 3 Fair Abduction 3 Fair PT-OP-Q Treatments Start: 04/25/20 08:10 Freq: Status: Active Protocol: Document 08/11/20 12:06 MA (Rec: 08/11/20 12:51 MA [id number]) Gym Equipment Shuttle Recovery Bilateral Squats Details one set 75#, 2 sets 87# Resistance 87 Shuttle Recovery Platform Stable Reps/Time 3x10 Therapeutic Exercises Sidelying Exercises Abduction Side bilateral Reps/Minutes 2x10 fabiola Comments Min A 1 Sidelying Exercise Name Clamshell Side bilateral Reps/Minutes 2x10 fabiola Standing Exercises Hip Strengthening Standing Exercise Name hip abd & hip flexion ( ) Side bilateral Equipment Used // bars Reps/Minutes 2 minutes 3 Standing Exercise Name lumbar extension with // bar behind back Reps/Minutes 5 Gait Training Gait Activity 1 Description 4WW walking Distance/Duration 2x300' Comments encouraged heel strike on R; focused on not adducting RLE and keeping pelvis stable; thoracic extension Walking in // bars Description fwd/bkwd/lat walking Distance/Duration 4x length of // bars Treatment Focus thoracic extension Comments holding bar behind back for lateral steps Manual Therapy Treatment Soft Tissue Mobilization Adductors Body Location L Mobilization Type Rolling,Sustained Pressure, Trigger Point Release Intensity/Depth Moderate Body Position Supine Comments LEs ER PT-OP-T Assessment and Plan Start: 04/25/20 08:10 Freq: Status: Active Protocol: Document 08/11/20 12:06 MA (Rec: 08/11/20 12:51 MA [id number]) Physical Therapy Assessment Goals Three Impairment Gait Short Term Goal (STG) Elise will ambulate with her 4WW for 1 minute with Wale. STG Duration MET Long-Term Goal (LTG) Elise will ambulate with her 4WW without LOB or scissoring gait for 2 minutes. Scissoring gait continues- very dependent upon pain/ fatigue level LTG Duration 8 weeks Two Impairment Standing balance Short Term Goal (STG) Patient will be able to stand with 4WW with min A for 1 minutes. STG Duration MET Long-Term Goal (LTG) Elise will move from sit to stand with Wale without LOB posteriorly. --Inconsistent LTG Duration 8 weeks 1 Impairment Transfers wc to mat table/bed Short Term Goal (STG) Patient will be min A with stand pivot transfer from wc to bed in 4-6 weeks. STG Duration MET Long-Term Goal (LTG) Patient will perform all bed mobility with Wale.- pt can perform all bed mobility in the clinic on the treatment table with Wale-ModA, or even SBA at times (sidelying to sit ) but at home it sounds like her provides more assistance. LTG Duration 8 weeks Assessment Summary Assessment Pt is doing well with strength and endurance. She is able to walk further before needing cues for thoracic extension and avoiding scissoring gait pattern. During exercises in / / bars, pt self corrects posture, but when walking with walker she needs cues to not let walker get too far ahead of her so she can maintain thoracic extension. Physical Therapy Plan Frequency and Duration Frequency of Treatment 2x/Week Duration of Treatment 8 weeks Plan of Care Start Date 06/20/20 Plan of Care End Date 08/15/20 Therapeutic Interventions Therapeutic Interventions Balance Training,Gait Training ,Home Exercise Program,Manual Therapy,Neuromuscular Re- education,Self-Care/Home Management,Therapeutic Activities,Therapeutic Exercises Next Visit Focus/Plan Next Note Type Treatment Note Next Visit Plan Continue manual therapy as needed for pain and balance work in stride stance without FRUIT SORTER, encourage upright posture , hip stability with gait, gait/transfer safety
--- NOTE | 2020-08-15 15:05 | PT.OPPOC ---
Physical, Occupational & Speech Therapy At [facility] Current Diagnoses Parkinson's disease (08/18/20) Other abnormalities of gait and mobility (08/18/20) Unspecified foreign body in respiratory tract, part unspecified causing other injury, sequela (08/18/20) History of falling (08/18/20) Visit Care Team Role Provider Type Hudson Mcmanus MD Attending Provider Physician Primary Care Provider Referring Provider Specialty: Internal Medicine Address: [address] [place] [address], [address], [facility] Email: [email or web address] Plan Of Care PT-OP-T Assessment and Plan Start: 04/25/20 08:10 Freq: Status: Active Protocol: Document 08/18/20 12:55 AMB (Rec: 08/15/20 13:09 AMB [id number]) Physical Therapy Assessment Goals Three Impairment Gait Short Term Goal (STG) Elise will ambulate with her 4WW for 1 minute with Wale. STG Duration MET Electric Frying Pan Repairer Goal (LTG) Elise will ambulate with her 4WW without LOB or scissoring gait for 2 minutes. Scissoring gait continues- very dependent upon pain/ fatigue level LTG Duration 8 weeks Two Impairment Standing balance Short Term Goal (STG) Patient will be able to stand with 4WW with min A for 1 minutes. STG Duration MET Mcc Goal (LTG) Elise will move from sit to stand with Wale without LOB posteriorly. --Inconsistent LTG Duration 8 weeks 1 Impairment Transfers wc to mat table/bed Short Term Goal (STG) Patient will be min A with stand pivot transfer from wc to bed in 4-6 weeks. STG Duration MET Electric Frying Pan Repairer Goal (LTG) Patient will perform all bed mobility with Wale.- pt can perform all bed mobility in the clinic on the treatment table with Wale-ModA, or even SBA at times (sidelying to sit ) but at home it sounds like her provides more assistance. LTG Duration 8 weeks Assessment Summary Assessment Elise really does want to push herself with exercise, but also lacks some awareness of safety/ not wanting her to help her transfer when she does really need help . But does tend to do more for her than she needs and cadena through transfers, which limits her independence. Overall her posture and gait have improved, but she continues to need help with sit to stand/ standing balance due to her tendency to posterior lean. She will benefit from continued PT to reduce her fall risk, improve her gait and transfers. Physical Therapy Plan Frequency and Duration Frequency of Treatment 2x/Week Duration of Treatment 4 weeks Plan of Care Start Date 08/15/20 Plan of Care End Date 09/12/20 Therapeutic Interventions Therapeutic Interventions Balance Training,Gait Training ,Home Exercise Program,Manual Therapy,Neuromuscular Re- education,Self-Care/Home Management,Therapeutic Activities,Therapeutic Exercises Next Visit Focus/Plan Next Note Type Treatment Note Next Visit Plan Continue manual therapy as needed for pain and balance work in stride stance without STRIP MACHINE TENDER, encourage upright posture , hip stability with gait, gait/transfer safety Plan of Care Dates Plan of Care Start Date 08/15/20 Plan of Care End Date 09/12/20 Electronically Signed by: Harriet Colvin, PT 08/18/20 [id number] Please Sign and Return: I have reviewed this Plan of Care and certify that the skilled therapy services above are required to meet the patient?s needs. Physician Signature Date Printed Name and Credentials Clinical Instructor Signature Printed Name and Credentials
--- NOTE | 2020-08-15 15:46 | PT.OPPOC ---
Physical, Occupational & Speech Therapy At [facility] Current Diagnoses Parkinson's disease (08/15/20) Other abnormalities of gait and mobility (08/15/20) Unspecified foreign body in respiratory tract, part unspecified causing other injury, sequela (08/15/20) History of falling (08/15/20) Visit Care Team Role Provider Type Hudson Mcmanus MD Attending Provider Physician Primary Care Provider Referring Provider Specialty: Internal Medicine Address: [address] [place] [address], [address], [facility] Email: [email or web address] Plan Of Care PT-OP-T Assessment and Plan Start: 04/25/20 08:10 Freq: Status: Active Protocol: Document 08/15/20 12:55 AMB (Rec: 08/15/20 13:09 AMB [id number]) Physical Therapy Assessment Goals Three Impairment Gait Short Term Goal (STG) Elise will ambulate with her 4WW for 1 minute with Wale. STG Duration MET Senior Hris Analyst Goal (LTG) Elise will ambulate with her 4WW without LOB or scissoring gait for 2 minutes. Scissoring gait continues- very dependent upon pain/ fatigue level LTG Duration 8 weeks Two Impairment Standing balance Short Term Goal (STG) Patient will be able to stand with 4WW with min A for 1 minutes. STG Duration MET Alf Goal (LTG) Elise will move from sit to stand with Wale without LOB posteriorly. --Inconsistent LTG Duration 8 weeks 1 Impairment Transfers wc to mat table/bed Short Term Goal (STG) Patient will be min A with stand pivot transfer from wc to bed in 4-6 weeks. STG Duration MET Senior Hris Analyst Goal (LTG) Patient will perform all bed mobility with Wale.- pt can perform all bed mobility in the clinic on the treatment table with Wale-ModA, or even SBA at times (sidelying to sit ) but at home it sounds like her provides more assistance. LTG Duration 8 weeks Assessment Summary Assessment Elise really does want to push herself with exercise, but also lacks some awareness of safety/ not wanting her to help her transfer when she does really need help . But does tend to do more for her than she needs and cadena through transfers, which limits her independence. Overall her posture and gait have improved, but she continues to need help with sit to stand/ standing balance due to her tendency to posterior lean. She will benefit from continued PT to reduce her fall risk, improve her gait and transfers. Physical Therapy Plan Next Visit Focus/Plan Next Note Type Treatment Note Next Visit Plan Continue manual therapy as needed for pain and balance work in stride stance without CLINICAL MATERIAL HANDLER, encourage upright posture , hip stability with gait, gait/transfer safety Plan of Care Dates Plan of Care Start Date 06/20/20 Plan of Care End Date 08/15/20 Electronically Signed by: Harriet Colvin, PT 08/15/20 [id number] Please Sign and Return: I have reviewed this Plan of Care and certify that the skilled therapy services above are required to meet the patient?s needs. Physician Signature Date Printed Name and Credentials Clinical Instructor Signature Printed Name and Credentials
--- NOTE | 2020-08-15 15:46 | PT.OTN ---
Current Diagnoses Parkinson's disease (08/15/20) Other abnormalities of gait and mobility (08/15/20) Unspecified foreign body in respiratory tract, part unspecified causing other injury, sequela (08/15/20) History of falling (08/15/20) Physical Therapy Treatment Note PT-OP-A Visit Information Start: 04/25/20 08:10 Freq: Status: Active Protocol: Document 08/15/20 12:45 AMB (Rec: 08/15/20 15:43 AMB [email or web address]) Out-Patient Physical Therapy Visit Information Visit Information Visit Type Progress Note Visit Start Time 12:45 Visit Stop Time 13:30 Total Visit Minutes 45 Visit Number 27 Number of JUDGE CLERK Visits 0 PT-OP-B Current Condition Start: 04/25/20 08:10 Freq: Status: Active Protocol: Document 04/25/20 08:11 AMB (Rec: 04/25/20 08:32 AMB [id number]) Current Condition History of Current Condition Onset Date Parkinson's Disease diagnosed in 1993 Current Complaints Unsteadiness with independent gait/transfers History of Current Condition Chief complaint of weakness and instability when standing. The patient has progressive parkinson's disease and is primarily taken care of by her . Her speech is quiet and she has a hard time speaking loudly so her does report some information. The patient fell in 2010 and had hip surgery due to a fractured femoral head that has not had an updated x-ray per the 's report since then she does report L sided hip pain and weakness. The patient's helps her transfer to the bed, the recliner, the car, and to the toilet to and from the wheelchair which the patient does help push with but has occasional freezing situations . He does have a caregiver come in once a week. Prior Treatments and Tests Has had PT in the past, currently sees Speech Therapy for swallowing and speech. Deep Brain Stimulator present. Personal Factors Other Personal Factors That May Effect 2 months ago- fell out of Therapy/Recovery chair forward while was driving it, foot caught on threshold. Trying to get out of bed independently has led to falls. thinks he does about 75% of the transfers. PT-OP-C Subjective Start: 04/25/20 08:10 Freq: Status: Active Protocol: Document 08/15/20 12:45 AMB (Rec: 08/15/20 15:43 AMB [email or web address]) OP-PT Subjective Patient Comments Patient Comments Pt states she had pain yesterday but none today. PT-OP-D Balance Start: 04/25/20 08:10 Freq: Status: Active Protocol: Document 07/31/20 13:01 AMB (Rec: 07/31/20 13:09 AMB [id number]) OP-PT Balance Assessment Standing Balance Standing Balance Comments 30 seconds James Fall Scale Copyright Permission PT-OP-E Functional Tests Start: 04/25/20 08:10 Freq: Status: Active Protocol: Document 08/15/20 13:30 AMB (Rec: 08/15/20 13:32 AMB [email or web address]) Functional Tests Five Times Sit to Stand Test Score 54 Comments needed Wale Timed Up and Go (TUG) Score 37 TUG Impairment Rating 100% Impaired (Score 20) PT-OP-G Mobility & Gait Start: 04/25/20 08:10 Freq: Status: Active Protocol: Document 07/31/20 12:45 AMB (Rec: 07/31/20 13:48 AMB [email or web address]) OP Mobility Evaluation Bed Mobility Supine to and from Sit SBA when coming up into a sit up Transfers Sit to Stand Occassional Wale can be SBA at times OP Gait Assessment Comments Gait Comments Pt ambulates 200' with 4WW with scissoring gait and trendelenburg gait, worse with turning and backing up, difficulty maintaining upright posture. PT-OP-J Posture/Palpation/Skin Start: 04/25/20 08:10 Freq: Status: Active Protocol: Document 04/25/20 08:15 AMB (Rec: 04/25/20 15:57 AMB [email or web address]) Posture Evaluation Comments Posture Comments thoracic kyphosis and forward head PT-OP-M Strength Start: 04/25/20 08:10 Freq: Status: Active Protocol: Document 07/31/20 13:01 AMB (Rec: 07/31/20 13:09 AMB [id number]) Hip Strength Hip Manual Muscle Testing Left Flexion (L2) 4 Good Extension (S1) 3 Fair Abduction 3 Fair PT-OP-Q Treatments Start: 04/25/20 08:10 Freq: Status: Active Protocol: Document 08/15/20 12:45 AMB (Rec: 08/15/20 15:43 AMB [email or web address]) Gym Equipment Shuttle Recovery Bilateral Squats Details one set 75#, 2 sets 87# Resistance 87 Shuttle Recovery Platform Stable Reps/Time 3x10 Therapeutic Exercises Standing Exercises Hip Strengthening Standing Exercise Name hip abd & hip flexion (marches ) Side bilateral Equipment Used // bars Reps/Minutes 2 minutes 3 Standing Exercise Name lumbar extension with // bar behind back Reps/Minutes 5 2 Standing Exercise Name forward mini lunges Reps/Minutes 2 1 Standing Exercise Name backwards walking in // bars Reps/Minutes 2 min Comments cues for posture Other Exercises 1 Other Exercise Name sit to stand Comments x10- pt fatigues and leans backward hard requiring min/ modA at times Gait Training Gait Activity 1 Description 4WW walking Distance/Duration 2x300' Comments encouraged heel strike on R; focused on not adducting RLE and keeping pelvis stable; thoracic extension PT-OP-T Assessment and Plan Start: 04/25/20 08:10 Freq: Status: Active Protocol: Document 08/15/20 12:55 AMB (Rec: 08/15/20 13:09 AMB [id number]) Physical Therapy Assessment Goals Three Impairment Gait Short Term Goal (STG) Elise will ambulate with her 4WW for 1 minute with Wale. STG Duration MET Vat House Laborer Goal (LTG) Elise will ambulate with her 4WW without LOB or scissoring gait for 2 minutes. Scissoring gait continues- very dependent upon pain/ fatigue level LTG Duration 8 weeks Two Impairment Standing balance Short Term Goal (STG) Patient will be able to stand with 4WW with min A for 1 minutes. STG Duration MET Vat House Laborer Goal (LTG) Elise will move from sit to stand with Wale without LOB posteriorly. --Inconsistent LTG Duration 8 weeks 1 Impairment Transfers wc to mat table/bed Short Term Goal (STG) Patient will be min A with stand pivot transfer from wc to bed in 4-6 weeks. STG Duration MET Vat House Laborer Goal (LTG) Patient will perform all bed mobility with Wale.- pt can perform all bed mobility in the clinic on the treatment table with Wale-ModA, or even SBA at times (sidelying to sit ) but at home it sounds like her provides more assistance. LTG Duration 8 weeks Assessment Summary Assessment Elise really does want to push herself with exercise, but also lacks some awareness of safety/ not wanting her to help her transfer when she does really need help . But does tend to do more for her than she needs and cadena through transfers, which limits her independence. Overall her posture and gait have improved, but she continues to need help with sit to stand/ standing balance due to her tendency to posterior lean. She will benefit from continued PT to reduce her fall risk, improve her gait and transfers. Physical Therapy Plan Next Visit Focus/Plan Next Note Type Treatment Note Next Visit Plan Continue manual therapy as needed for pain and balance work in stride stance without PHOTOGRAPHER LITHOGRAPHIC, encourage upright posture , hip stability with gait, gait/transfer safety
--- NOTE | 2020-08-18 13:48 | PT.OTN ---
Current Diagnoses Parkinson's disease (08/18/20) Other abnormalities of gait and mobility (08/18/20) Unspecified foreign body in respiratory tract, part unspecified causing other injury, sequela (08/18/20) History of falling (08/18/20) Physical Therapy Treatment Note PT-OP-A Visit Information Start: 04/25/20 08:10 Freq: Status: Active Protocol: Document 08/18/20 11:59 MA (Rec: 08/18/20 12:43 MA [id number]) Out-Patient Physical Therapy Visit Information Visit Information Visit Type Treatment Note Visit Start Time 11:55 Visit Stop Time 12:40 Total Visit Minutes 45 Visit Number 28 Number of TECHNICAL EXPERT Visits 1 PT-OP-B Current Condition Start: 04/25/20 08:10 Freq: Status: Active Protocol: Document 04/25/20 08:11 AMB (Rec: 04/25/20 08:32 AMB [id number]) Current Condition History of Current Condition Onset Date Parkinson's Disease diagnosed in 1993 Current Complaints Unsteadiness with independent gait/transfers History of Current Condition Chief complaint of weakness and instability when standing. The patient has progressive parkinson's disease and is primarily taken care of by her . Her speech is quiet and she has a hard time speaking loudly so her does report some information. The patient fell in 2010 and had hip surgery due to a fractured femoral head that has not had an updated x-ray per the 's report since then she does report L sided hip pain and weakness. The patient's helps her transfer to the bed, the recliner, the car, and to the toilet to and from the wheelchair which the patient does help push with but has occasional freezing situations . He does have a caregiver come in once a week. Prior Treatments and Tests Has had PT in the past, currently sees Speech Therapy for swallowing and speech. Deep Brain Stimulator present. Personal Factors Other Personal Factors That May Effect 2 months ago- fell out of Therapy/Recovery chair forward while was driving it, foot caught on threshold. Trying to get out of bed independently has led to falls. thinks he does about 75% of the transfers. PT-OP-C Subjective Start: 04/25/20 08:10 Freq: Status: Active Protocol: Document 08/18/20 11:59 MA (Rec: 08/18/20 12:43 MA [id number]) OP-PT Subjective Patient Comments Patient Comments Pt's states she is more sore today. When pt is asked why she is more sore, she states it's just her normal life soreness. PT-OP-D Balance Start: 04/25/20 08:10 Freq: Status: Active Protocol: Document 07/31/20 13:01 AMB (Rec: 07/31/20 13:09 AMB [id number]) OP-PT Balance Assessment Standing Balance Standing Balance Comments 30 seconds James Fall Scale Copyright Permission PT-OP-E Functional Tests Start: 04/25/20 08:10 Freq: Status: Active Protocol: Document 08/15/20 13:30 AMB (Rec: 08/15/20 13:32 AMB [email or web address]) Functional Tests Five Times Sit to Stand Test Score 54 Comments needed Wale Timed Up and Go (TUG) Score 37 TUG Impairment Rating 100% Impaired (Score 20) PT-OP-G Mobility & Gait Start: 04/25/20 08:10 Freq: Status: Active Protocol: Document 07/31/20 12:45 AMB (Rec: 07/31/20 13:48 AMB [email or web address]) OP Mobility Evaluation Bed Mobility Supine to and from Sit SBA when coming up into a sit up Transfers Sit to Stand Occassional Wale can be SBA at times OP Gait Assessment Comments Gait Comments Pt ambulates 200' with 4WW with scissoring gait and trendelenburg gait, worse with turning and backing up, difficulty maintaining upright posture. PT-OP-J Posture/Palpation/Skin Start: 04/25/20 08:10 Freq: Status: Active Protocol: Document 04/25/20 08:15 AMB (Rec: 04/25/20 15:57 AMB [email or web address]) Posture Evaluation Comments Posture Comments thoracic kyphosis and forward head PT-OP-M Strength Start: 04/25/20 08:10 Freq: Status: Active Protocol: Document 07/31/20 13:01 AMB (Rec: 07/31/20 13:09 AMB [id number]) Hip Strength Hip Manual Muscle Testing Left Flexion (L2) 4 Good Extension (S1) 3 Fair Abduction 3 Fair PT-OP-Q Treatments Start: 04/25/20 08:10 Freq: Status: Active Protocol: Document 08/18/20 11:59 MA (Rec: 08/18/20 12:43 MA [id number]) Gym Equipment Shuttle Recovery Bilateral Squats Details one set 75#, 2 sets 87# Resistance 87 Shuttle Recovery Platform Stable Reps/Time 3x15 Therapeutic Exercises Standing Exercises 2 Standing Exercise Name forward mini lunges Reps/Minutes 8 Comments stepping fwd with front knee bent and stepping back Gait Training Gait Activity 1 Description 4WW walking Distance/Duration 2x300' Comments encouraged heel strike on R; focused on not adducting RLE and keeping pelvis stable; thoracic extension Walking in // bars Description fwd/bkwd Distance/Duration 4x length of // bars Treatment Focus thoracic extension Manual Therapy Treatment Soft Tissue Mobilization Glutes Body Location Jason Mobilization Type Sustained Pressure,Trigger Point Release Intensity/Depth Moderate Body Position Sidelying Comments glue max & med HS Body Location jason HS Mobilization Type Rolling,Sustained Pressure, Trigger Point Release Intensity/Depth Moderate Body Position Supine Comments Leg up on therapists shd with contract relax Adductors Body Location Jason Mobilization Type Rolling,Sustained Pressure, Trigger Point Release Intensity/Depth Moderate Body Position Supine Comments LEs ER PT-OP-T Assessment and Plan Start: 04/25/20 08:10 Freq: Status: Active Protocol: Document 08/18/20 11:59 MA (Rec: 08/18/20 12:43 MA [id number]) Physical Therapy Assessment Goals Three Impairment Gait Short Term Goal (STG) Elise will ambulate with her 4WW for 1 minute with Wale. STG Duration MET [facility] Goal (LTG) Elise will ambulate with her 4WW without LOB or scissoring gait for 2 minutes. Scissoring gait continues- very dependent upon pain/ fatigue level LTG Duration 8 weeks Two Impairment Standing balance Short Term Goal (STG) Patient will be able to stand with 4WW with min A for 1 minutes. STG Duration [facility] Goal (LTG) Elise will move from sit to stand with Wale without LOB posteriorly. --Inconsistent LTG Duration 8 weeks 1 Impairment Transfers wc to mat table/bed Short Term Goal (STG) Patient will be min A with stand pivot transfer from wc to bed in 4-6 weeks. STG Duration [facility] Goal (LTG) Patient will perform all bed mobility with Wale.- pt can perform all bed mobility in the clinic on the treatment table with Wale-ModA, or even SBA at times (sidelying to sit ) but at home it sounds like her provides more assistance. LTG Duration 8 weeks Assessment Summary Assessment Elise continues to need cues to avoid scissoring gait and for thoracic extension. She is able to walk further before showing signs of fatigue. Her work in the //bars has improved with pt able to step back without dragging RLE. Physical Therapy Plan Frequency and Duration Frequency of Treatment 2x/Week Duration of Treatment 8 weeks Plan of Care Start Date 06/20/20 Plan of Care End Date 08/15/20 Therapeutic Interventions Therapeutic Interventions Balance Training,Gait Training ,Home Exercise Program,Manual Therapy,Neuromuscular Re- education,Self-Care/Home Management,Therapeutic Activities,Therapeutic Exercises Next Visit Focus/Plan Next Note Type Treatment Note Next Visit Plan Continue manual therapy as needed for pain and balance work in stride stance without HELPDESK SPECIALIST, encourage upright posture , hip stability with gait, gait/transfer safety
--- NOTE | 2020-08-22 14:56 | PT.OTN ---
Current Diagnoses Parkinson's disease (08/22/20) Other abnormalities of gait and mobility (08/22/20) Unspecified foreign body in respiratory tract, part unspecified causing other injury, sequela (08/22/20) History of falling (08/22/20) Physical Therapy Treatment Note PT-OP-A Visit Information Start: 04/25/20 08:10 Freq: Status: Active Protocol: Document 08/22/20 12:45 AMB (Rec: 08/22/20 13:33 AMB [id number]) Out-Patient Physical Therapy Visit Information Visit Information Visit Type Treatment Note PT-OP-B Current Condition Start: 04/25/20 08:10 Freq: Status: Active Protocol: Document 04/25/20 08:11 AMB (Rec: 04/25/20 08:32 AMB [id number]) Current Condition History of Current Condition Onset Date Parkinson's Disease diagnosed in 1993 Current Complaints Unsteadiness with independent gait/transfers History of Current Condition Chief complaint of weakness and instability when standing. The patient has progressive parkinson's disease and is primarily taken care of by her . Her speech is quiet and she has a hard time speaking loudly so her does report some information. The patient fell in 2010 and had hip surgery due to a fractured femoral head that has not had an updated x-ray per the 's report since then she does report L sided hip pain and weakness. The patient's helps her transfer to the bed, the recliner, the car, and to the toilet to and from the wheelchair which the patient does help push with but has occasional freezing situations . He does have a caregiver come in once a week. Prior Treatments and Tests Has had PT in the past, currently sees Speech Therapy for swallowing and speech. Deep Brain Stimulator present. Personal Factors Other Personal Factors That May Effect 2 months ago- fell out of Therapy/Recovery chair forward while was driving it, foot caught on threshold. Trying to get out of bed independently has led to falls. thinks he does about 75% of the transfers. PT-OP-C Subjective Start: 04/25/20 08:10 Freq: Status: Active Protocol: Document 08/22/20 12:45 AMB (Rec: 08/22/20 14:56 AMB [email or web address]) OP-PT Subjective Patient Comments Patient Comments Si notes 2/10 pain at bilateral ischial tuberosities today. PT-OP-D Balance Start: 04/25/20 08:10 Freq: Status: Active Protocol: Document 07/31/20 13:01 AMB (Rec: 07/31/20 13:09 AMB [id number]) OP-PT Balance Assessment Standing Balance Standing Balance Comments 30 seconds James Fall Scale Copyright Permission PT-OP-E Functional Tests Start: 04/25/20 08:10 Freq: Status: Active Protocol: Document 08/15/20 13:30 AMB (Rec: 08/15/20 13:32 AMB [email or web address]) Functional Tests Five Times Sit to Stand Test Score 54 Comments needed Wale Timed Up and Go (TUG) Score 37 TUG Impairment Rating 100% Impaired (Score 20) PT-OP-G Mobility & Gait Start: 04/25/20 08:10 Freq: Status: Active Protocol: Document 07/31/20 12:45 AMB (Rec: 07/31/20 13:48 AMB [email or web address]) OP Mobility Evaluation Bed Mobility Supine to and from Sit SBA when coming up into a sit up Transfers Sit to Stand Occassional Wale can be SBA at times OP Gait Assessment Comments Gait Comments Pt ambulates 200' with 4WW with scissoring gait and trendelenburg gait, worse with turning and backing up, difficulty maintaining upright posture. PT-OP-J Posture/Palpation/Skin Start: 04/25/20 08:10 Freq: Status: Active Protocol: Document 04/25/20 08:15 AMB (Rec: 04/25/20 15:57 AMB [email or web address]) Posture Evaluation Comments Posture Comments thoracic kyphosis and forward head PT-OP-M Strength Start: 04/25/20 08:10 Freq: Status: Active Protocol: Document 07/31/20 13:01 AMB (Rec: 07/31/20 13:09 AMB [id number]) Hip Strength Hip Manual Muscle Testing Left Flexion (L2) 4 Good Extension (S1) 3 Fair Abduction 3 Fair PT-OP-Q Treatments Start: 04/25/20 08:10 Freq: Status: Active Protocol: Document 08/22/20 12:45 AMB (Rec: 08/22/20 14:56 AMB [email or web address]) Gym Equipment Shuttle Recovery Bilateral Squats Details all 87# Reps/Time 3x10 Therapeutic Exercises Standing Exercises Hip Strengthening Standing Exercise Name hip abd & hip flexion (marchalexis ) Side bilateral Equipment Used // bars Reps/Minutes 2 minutes 2 Standing Exercise Name forward mini lunges Reps/Minutes 8 Comments stepping fwd with front knee bent and stepping back 1 Standing Exercise Name sidestepping in //bars Reps/Minutes 5 min Comments cues for upright posture Gait Training Gait Activity 1 Description 4WW walking Distance/Duration 2x300' Comments encouraged heel strike on R; focused on not adducting RLE and keeping pelvis stable; thoracic extension PT-OP-T Assessment and Plan Start: 04/25/20 08:10 Freq: Status: Active Protocol: Document 08/22/20 12:45 AMB (Rec: 08/22/20 13:33 AMB [id number]) Physical Therapy Assessment Goals Three Impairment Gait Short Term Goal (STG) Elise will ambulate with her 4WW for 1 minute with Wale. STG Duration MET Nursing Home Goal (LTG) Elise will ambulate with her 4WW without LOB or scissoring gait for 2 minutes. Scissoring gait continues- very dependent upon pain/ fatigue level LTG Duration 8 weeks Two Impairment Standing balance Short Term Goal (STG) Patient will be able to stand with 4WW with min A for 1 minutes. STG Duration MET Snowboard Designer Goal (LTG) Elise will move from sit to stand with Wale without LOB posteriorly. --Inconsistent LTG Duration 8 weeks 1 Impairment Transfers wc to mat table/bed Short Term Goal (STG) Patient will be min A with stand pivot transfer from wc to bed in 4-6 weeks. STG Duration MET Snowboard Designer Goal (LTG) Patient will perform all bed mobility with Wale.- pt can perform all bed mobility in the clinic on the treatment table with Wale-ModA, or even SBA at times (sidelying to sit ) but at home it sounds like her provides more assistance. LTG Duration 8 weeks Assessment Summary Assessment Si continued to note bilaterall sit bone pain today R>L worst when standing up after she has been sitting for an extended period of time . Spoke with both her and and asked that she take some time to stretch out her legs/move them around before transferring when she has been sitting for an extended period of time and see if that changes her pain at all. Physical Therapy Plan Frequency and Duration Frequency of Treatment 2x/Week Duration of Treatment 4 weeks Plan of Care Start Date 08/15/20 Plan of Care End Date 09/12/20 Next Visit Focus/Plan Next Note Type Treatment Note
--- NOTE | 2020-08-25 16:07 | PT.OTN ---
Current Diagnoses Parkinson's disease (08/25/20) Other abnormalities of gait and mobility (08/25/20) Unspecified foreign body in respiratory tract, part unspecified causing other injury, sequela (08/25/20) History of falling (08/25/20) Physical Therapy Treatment Note PT-OP-A Visit Information Start: 04/25/20 08:10 Freq: Status: Active Protocol: Document 08/25/20 12:08 MA (Rec: 08/25/20 12:51 MA [id number]) Out-Patient Physical Therapy Visit Information Visit Information Visit Type Treatment Note Visit Start Time 12:00 Visit Stop Time 12:45 Total Visit Minutes 45 Visit Number 29 Number of CRA Visits 2 Precautions Precautions Partial hip replacement in 2010, fall risk PT-OP-B Current Condition Start: 04/25/20 08:10 Freq: Status: Active Protocol: Document 04/25/20 08:11 AMB (Rec: 04/25/20 08:32 AMB [id number]) Current Condition History of Current Condition Onset Date Parkinson's Disease diagnosed in 1993 Current Complaints Unsteadiness with independent gait/transfers History of Current Condition Chief complaint of weakness and instability when standing. The patient has progressive parkinson's disease and is primarily taken care of by her . Her speech is quiet and she has a hard time speaking loudly so her does report some information. The patient fell in 2010 and had hip surgery due to a fractured femoral head that has not had an updated x-ray per the 's report since then she does report L sided hip pain and weakness. The patient's helps her transfer to the bed, the recliner, the car, and to the toilet to and from the wheelchair which the patient does help push with but has occasional freezing situations . He does have a caregiver come in once a week. Prior Treatments and Tests Has had PT in the past, currently sees Speech Therapy for swallowing and speech. Deep Brain Stimulator present. Personal Factors Other Personal Factors That May Effect 2 months ago- fell out of Therapy/Recovery chair forward while was driving it, foot caught on threshold. Trying to get out of bed independently has led to falls. thinks he does about 75% of the transfers. PT-OP-C Subjective Start: 04/25/20 08:10 Freq: Status: Active Protocol: Document 08/25/20 12:08 MA (Rec: 04/02/21 12:51 MA [id number]) OP-PT Subjective Patient Comments Patient Comments Pt has nothing to report today . states pt has been using her tricylce when it's nice out PT-OP-D Balance Start: 04/25/20 08:10 Freq: Status: Active Protocol: Document 07/31/20 13:01 AMB (Rec: 07/31/20 13:09 AMB [id number]) OP-PT Balance Assessment Standing Balance Standing Balance Comments 30 seconds James Fall Scale Copyright Permission PT-OP-E Functional Tests Start: 04/25/20 08:10 Freq: Status: Active Protocol: Document 08/15/20 13:30 AMB (Rec: 08/15/20 13:32 AMB [email or web address]) Functional Tests Five Times Sit to Stand Test Score 54 Comments needed Wale Timed Up and Go (TUG) Score 37 TUG Impairment Rating 100% Impaired (Score 20) PT-OP-G Mobility & Gait Start: 04/25/20 08:10 Freq: Status: Active Protocol: Document 07/31/20 12:45 AMB (Rec: 07/31/20 13:48 AMB [email or web address]) OP Mobility Evaluation Bed Mobility Supine to and from Sit SBA when coming up into a sit up Transfers Sit to Stand Occassional Wale can be SBA at times OP Gait Assessment Comments Gait Comments Pt ambulates 200' with 4WW with scissoring gait and trendelenburg gait, worse with turning and backing up, difficulty maintaining upright posture. PT-OP-J Posture/Palpation/Skin Start: 04/25/20 08:10 Freq: Status: Active Protocol: Document 04/25/20 08:15 AMB (Rec: 04/25/20 15:57 AMB [email or web address]) Posture Evaluation Comments Posture Comments thoracic kyphosis and forward head PT-OP-M Strength Start: 04/25/20 08:10 Freq: Status: Active Protocol: Document 07/31/20 13:01 AMB (Rec: 07/31/20 13:09 AMB [id number]) Hip Strength Hip Manual Muscle Testing Left Flexion (L2) 4 Good Extension (S1) 3 Fair Abduction 3 Fair PT-OP-Q Treatments Start: 04/25/20 08:10 Freq: Status: Active Protocol: Document 08/25/20 12:08 MA (Rec: 08/25/20 12:51 MA [id number]) Gym Equipment Shuttle Recovery Bilateral Squats Details 87#, 100# Reps/Time 3x10 Therapeutic Activity Therapeutic Activity Transfer Sit to Stand Reps/Minutes 5x Comments Working on not pushing with the back of the legs and bending the knees to sit back down Gait Training Gait Activity 1 Description 4WW walking Distance/Duration 2x300' Comments encouraged heel strike on R; focused on not adducting RLE and keeping pelvis stable; thoracic extension Walking in // bars Description fwd/bkwd/ lateral Distance/Duration 6x length of // bars Treatment Focus thoracic extension Manual Therapy Treatment Soft Tissue Mobilization Glutes Body Location R Mobilization Type Sustained Pressure,Trigger Point Release Intensity/Depth Moderate Body Position Sidelying Comments glue max & med HS Body Location jason HS Mobilization Type Rolling,Sustained Pressure, Trigger Point Release Intensity/Depth Moderate Body Position Supine Comments Leg up on therapists shd with contract relax Adductors Body Location Jason Mobilization Type Rolling,Sustained Pressure, Trigger Point Release Intensity/Depth Moderate Body Position Supine Comments LEs ER PT-OP-T Assessment and Plan Start: 04/25/20 08:10 Freq: Status: Active Protocol: Document 08/25/20 12:08 MA (Rec: 08/25/20 12:51 MA [id number]) Physical Therapy Assessment Goals Three Impairment Gait Short Term Goal (STG) Elise will ambulate with her 4WW for 1 minute with Wale. STG Duration MET Senior Care Goal (LTG) Elise will ambulate with her 4WW without LOB or scissoring gait for 2 minutes. Scissoring gait continues- very dependent upon pain/ fatigue level LTG Duration 8 weeks Two Impairment Standing balance Short Term Goal (STG) Patient will be able to stand with 4WW with min A for 1 minutes. STG Duration MET Pediatric Geneticist Goal (LTG) Elise will move from sit to stand with Wale without LOB posteriorly. --Inconsistent LTG Duration 8 weeks 1 Impairment Transfers wc to mat table/bed Short Term Goal (STG) Patient will be min A with stand pivot transfer from wc to bed in 4-6 weeks. STG Duration MET Pediatric Geneticist Goal (LTG) Patient will perform all bed mobility with Wale.- pt can perform all bed mobility in the clinic on the treatment table with Wale-ModA, or even SBA at times (sidelying to sit ) but at home it sounds like her provides more assistance. LTG Duration 8 weeks Assessment Summary Assessment Pt is doing well during ambulation avoiding adduction of RLE. She can walk ~200 feet before begining to fatigue and adduct LE. Worked on bending knees to sit down with control instead of just leaning back, falling into chair. Reminded pt to scoot to edge of seat before standing to avoid using back of legs against chair. Pt is doing well walking forward, backwards, and laterally in // bars with cues for thoracic extension. She was able to increase weight to 100# on leg press showing improvement in her strength. Physical Therapy Plan Frequency and Duration Frequency of Treatment 2x/Week Duration of Treatment 4 weeks Plan of Care Start Date 08/15/20 Plan of Care End Date 09/12/20 Therapeutic Interventions Therapeutic Interventions Balance Training,Gait Training ,Home Exercise Program,Manual Therapy,Neuromuscular Re- education,Self-Care/Home Management,Therapeutic Activities,Therapeutic Exercises Next Visit Focus/Plan Next Note Type Treatment Note Next Visit Plan Continue manual therapy as needed for pain and balance work in stride stance without PROPELLANT CHARGE ZONE ASSEMBLER, encourage upright posture , hip stability with gait, gait/transfer safety
--- NOTE | 2020-08-29 15:31 | PT.OTN ---
Current Diagnoses Parkinson's disease (08/29/20) Other abnormalities of gait and mobility (08/29/20) Unspecified foreign body in respiratory tract, part unspecified causing other injury, sequela (08/29/20) History of falling (08/29/20) Physical Therapy Treatment Note PT-OP-A Visit Information Start: 04/25/20 08:10 Freq: Status: Active Protocol: Document 08/29/20 13:30 AMB (Rec: 08/29/20 13:36 AMB [email or web address]) Out-Patient Physical Therapy Visit Information Visit Information Visit Type Treatment Note Visit Start Time 12:45 Visit Stop Time 13:30 Total Visit Minutes 45 Visit Number 30 Number of RECRUITER SPECIALIST Visits 3 PT-OP-B Current Condition Start: 04/25/20 08:10 Freq: Status: Active Protocol: Document 04/25/20 08:11 AMB (Rec: 04/25/20 08:32 AMB [id number]) Current Condition History of Current Condition Onset Date Parkinson's Disease diagnosed in 1993 Current Complaints Unsteadiness with independent gait/transfers History of Current Condition Chief complaint of weakness and instability when standing. The patient has progressive parkinson's disease and is primarily taken care of by her . Her speech is quiet and she has a hard time speaking loudly so her does report some information. The patient fell in 2010 and had hip surgery due to a fractured femoral head that has not had an updated x-ray per the 's report since then she does report L sided hip pain and weakness. The patient's helps her transfer to the bed, the recliner, the car, and to the toilet to and from the wheelchair which the patient does help push with but has occasional freezing situations . He does have a caregiver come in once a week. Prior Treatments and Tests Has had PT in the past, currently sees Speech Therapy for swallowing and speech. Deep Brain Stimulator present. Personal Factors Other Personal Factors That May Effect 2 months ago- fell out of Therapy/Recovery chair forward while was driving it, foot caught on threshold. Trying to get out of bed independently has led to falls. thinks he does about 75% of the transfers. PT-OP-C Subjective Start: 04/25/20 08:10 Freq: Status: Active Protocol: Document 08/29/20 12:45 AMB (Rec: 08/29/20 15:31 AMB [id number]) OP-PT Subjective Patient Comments Patient Comments Discussed continuing therapy with both Pipe and Oh. Role of medical necessity, continued progress etc. Pipe would like to continue coming to PT 2x/week for now if she can. PT-OP-D Balance Start: 04/25/20 08:10 Freq: Status: Active Protocol: Document 07/31/20 13:01 AMB (Rec: 07/31/20 13:09 AMB [id number]) OP-PT Balance Assessment Standing Balance Standing Balance Comments 30 seconds James Fall Scale Copyright Permission PT-OP-E Functional Tests Start: 04/25/20 08:10 Freq: Status: Active Protocol: Document 08/15/20 13:30 AMB (Rec: 08/15/20 13:32 AMB [email or web address]) Functional Tests Five Times Sit to Stand Test Score 54 Comments needed Wale Timed Up and Go (TUG) Score 37 TUG Impairment Rating 100% Impaired (Score 20) PT-OP-G Mobility & Gait Start: 04/25/20 08:10 Freq: Status: Active Protocol: Document 07/31/20 12:45 AMB (Rec: 07/31/20 13:48 AMB [email or web address]) OP Mobility Evaluation Bed Mobility Supine to and from Sit SBA when coming up into a sit up Transfers Sit to Stand Occassional Wale can be SBA at times OP Gait Assessment Comments Gait Comments Pt ambulates 200' with 4WW with scissoring gait and trendelenburg gait, worse with turning and backing up, difficulty maintaining upright posture. PT-OP-J Posture/Palpation/Skin Start: 04/25/20 08:10 Freq: Status: Active Protocol: Document 04/25/20 08:15 AMB (Rec: 04/25/20 15:57 AMB [email or web address]) Posture Evaluation Comments Posture Comments thoracic kyphosis and forward head PT-OP-M Strength Start: 04/25/20 08:10 Freq: Status: Active Protocol: Document 07/31/20 13:01 AMB (Rec: 07/31/20 13:09 AMB [id number]) Hip Strength Hip Manual Muscle Testing Left Flexion (L2) 4 Good Extension (S1) 3 Fair Abduction 3 Fair PT-OP-Q Treatments Start: 04/25/20 08:10 Freq: Status: Active Protocol: Document 08/29/20 12:45 AMB (Rec: 08/29/20 15:31 AMB [id number]) Therapeutic Exercises Standing Exercises 4 Standing Exercise Name fwd and side step ups Reps/Minutes 5 min Comments 4 in // bars- difficult with R Hip Strengthening Standing Exercise Name hip abd & hip flexion (marches ) Side bilateral Equipment Used // bars Reps/Minutes 2 minutes 3 Standing Exercise Name lumbar extension with // bar behind back Reps/Minutes 5 2 Standing Exercise Name forward mini lunges Reps/Minutes 8 Comments stepping fwd with front knee bent and stepping back 1 Standing Exercise Name sidestepping in //bars Reps/Minutes 5 min Comments cues for upright posture, added hurdles Therapeutic Activity Therapeutic Activity Transfer Sit to Stand Reps/Minutes 5x Comments Working on not pushing with the back of the legs and bending the knees to sit back down Gait Training Gait Activity 1 Description 4WW walking Distance/Duration 1x300' Comments encouraged heel strike on R; focused on not adducting RLE and keeping pelvis stable; thoracic extension PT-OP-T Assessment and Plan Start: 04/25/20 08:10 Freq: Status: Active Protocol: Document 08/29/20 12:45 AMB (Rec: 08/29/20 15:31 AMB [id number]) Physical Therapy Assessment Goals Three Impairment Gait Short Term Goal (STG) Elise will ambulate with her 4WW for 1 minute with Wale. STG Duration MET Group Home Goal (LTG) Elise will ambulate with her 4WW without LOB or scissoring gait for 2 minutes. Scissoring gait continues- very dependent upon pain/ fatigue level LTG Duration 8 weeks Two Impairment Standing balance Short Term Goal (STG) Patient will be able to stand with 4WW with min A for 1 minutes. STG Duration MET Group Home Goal (LTG) Elise will move from sit to stand with Wale without LOB posteriorly. --Inconsistent LTG Duration 8 weeks 1 Impairment Transfers wc to mat table/bed Short Term Goal (STG) Patient will be min A with stand pivot transfer from wc to bed in 4-6 weeks. STG Duration MET Group Home Goal (LTG) Patient will perform all bed mobility with Wale.- pt can perform all bed mobility in the clinic on the treatment table with Wale-ModA, or even SBA at times (sidelying to sit ) but at home it sounds like her provides more assistance. LTG Duration 8 weeks Assessment Summary Assessment Si had poor gait mechanics towards the end of session and this therapist had to really push her to stop and rest in order for her to maintain safety with her gait. Discussed this with her and Oh, that we would prefer for her to practice walking safely rather than really pushing her body to exhaustion and then being at a higher risk of falls. Physical Therapy Plan Frequency and Duration Frequency of Treatment 2x/Week Duration of Treatment 4 weeks Plan of Care Start Date 08/15/20 Plan of Care End Date 09/12/20 Therapeutic Interventions Therapeutic Interventions Balance Training,Gait Training ,Home Exercise Program,Manual Therapy,Neuromuscular Re- education,Self-Care/Home Management,Therapeutic Activities,Therapeutic Exercises Next Visit Focus/Plan Next Note Type Treatment Note Next Visit Plan Continue manual therapy as needed for pain and balance work in stride stance without CLINICAL APPLICATIONS SPECIALIST, encourage upright posture , hip stability with gait, gait/transfer safety
--- NOTE | 2020-09-01 12:47 | PT.OTN ---
Current Diagnoses Parkinson's disease (09/01/20) Other abnormalities of gait and mobility (09/01/20) Unspecified foreign body in respiratory tract, part unspecified causing other injury, sequela (09/01/20) History of falling (09/01/20) Physical Therapy Treatment Note PT-OP-A Visit Information Start: 04/25/20 08:10 Freq: Status: Active Protocol: Document 09/01/20 11:54 MA (Rec: 09/01/20 12:47 MA [id number]) Out-Patient Physical Therapy Visit Information Visit Information Visit Type Treatment Note Visit Start Time 11:55 Visit Stop Time 12:43 Total Visit Minutes 48 Visit Number 31 Number of DIESEL MACHINIST Visits 1 PT-OP-B Current Condition Start: 04/25/20 08:10 Freq: Status: Active Protocol: Document 04/25/20 08:11 AMB (Rec: 04/25/20 08:32 AMB [id number]) Current Condition History of Current Condition Onset Date Parkinson's Disease diagnosed in 1993 Current Complaints Unsteadiness with independent gait/transfers History of Current Condition Chief complaint of weakness and instability when standing. The patient has progressive parkinson's disease and is primarily taken care of by her . Her speech is quiet and she has a hard time speaking loudly so her does report some information. The patient fell in 2010 and had hip surgery due to a fractured femoral head that has not had an updated x-ray per the 's report since then she does report L sided hip pain and weakness. The patient's helps her transfer to the bed, the recliner, the car, and to the toilet to and from the wheelchair which the patient does help push with but has occasional freezing situations . He does have a caregiver come in once a week. Prior Treatments and Tests Has had PT in the past, currently sees Speech Therapy for swallowing and speech. Deep Brain Stimulator present. Personal Factors Other Personal Factors That May Effect 2 months ago- fell out of Therapy/Recovery chair forward while was driving it, foot caught on threshold. Trying to get out of bed independently has led to falls. thinks he does about 75% of the transfers. PT-OP-C Subjective Start: 04/25/20 08:10 Freq: Status: Active Protocol: Document 09/01/20 11:54 MA (Rec: 09/01/20 12:47 MA [id number]) OP-PT Subjective Patient Comments Patient Comments Pt states her leg pain has been getting better. She has been using a rower at home and has some difficulty with it but cannot explain what is most difficult. PT-OP-D Balance Start: 04/25/20 08:10 Freq: Status: Active Protocol: Document 07/31/20 13:01 AMB (Rec: 07/31/20 13:09 AMB [id number]) OP-PT Balance Assessment Standing Balance Standing Balance Comments 30 seconds James Fall Scale Copyright Permission PT-OP-E Functional Tests Start: 04/25/20 08:10 Freq: Status: Active Protocol: Document 08/15/20 13:30 AMB (Rec: 08/15/20 13:32 AMB [email or web address]) Functional Tests Five Times Sit to Stand Test Score 54 Comments needed Wale Timed Up and Go (TUG) Score 37 TUG Impairment Rating 100% Impaired (Score 20) PT-OP-G Mobility & Gait Start: 04/25/20 08:10 Freq: Status: Active Protocol: Document 07/31/20 12:45 AMB (Rec: 07/31/20 13:48 AMB [email or web address]) OP Mobility Evaluation Bed Mobility Supine to and from Sit SBA when coming up into a sit up Transfers Sit to Stand Occassional Wale can be SBA at times OP Gait Assessment Comments Gait Comments Pt ambulates 200' with 4WW with scissoring gait and trendelenburg gait, worse with turning and backing up, difficulty maintaining upright posture. PT-OP-J Posture/Palpation/Skin Start: 04/25/20 08:10 Freq: Status: Active Protocol: Document 04/25/20 08:15 AMB (Rec: 04/25/20 15:57 AMB [email or web address]) Posture Evaluation Comments Posture Comments thoracic kyphosis and forward head PT-OP-M Strength Start: 04/25/20 08:10 Freq: Status: Active Protocol: Document 07/31/20 13:01 AMB (Rec: 07/31/20 13:09 AMB [id number]) Hip Strength Hip Manual Muscle Testing Left Flexion (L2) 4 Good Extension (S1) 3 Fair Abduction 3 Fair PT-OP-Q Treatments Start: 04/25/20 08:10 Freq: Status: Active Protocol: Document 09/01/20 11:54 MA (Rec: 09/01/20 12:47 MA [id number]) Gym Equipment Shuttle Recovery Bilateral Squats Details 100# Reps/Time 3x10 Therapeutic Exercises Standing Exercises 4 Standing Exercise Name fwd and side step ups Reps/Minutes 5 min Comments 4 in // bars- difficult with R Hip Strengthening Standing Exercise Name hip abd & hip flexion (marches ) Side bilateral Equipment Used // bars Reps/Minutes 4 min Gait Training Gait Activity 1 Description 4WW walking Distance/Duration 1x300' Comments encouraged heel strike on R; focused on not adducting RLE and keeping pelvis stable; thoracic extension Walking in // bars Description fwd/bkwd/ lateral Distance/Duration 6x length of // bars Treatment Focus thoracic extension Manual Therapy Treatment Soft Tissue Mobilization Adductors Body Location Jason Mobilization Type Rolling,Sustained Pressure, Trigger Point Release Intensity/Depth Moderate Body Position Supine Comments LEs ER PT-OP-T Assessment and Plan Start: 04/25/20 08:10 Freq: Status: Active Protocol: Document 09/01/20 11:54 MA (Rec: 09/01/20 12:47 MA [id number]) Physical Therapy Assessment Goals Three Impairment Gait Short Term Goal (STG) Elise will ambulate with her 4WW for 1 minute with Wale. STG Duration MET Journalism Intern Goal (LTG) Elise will ambulate with her 4WW without LOB or scissoring gait for 2 minutes. Scissoring gait continues- very dependent upon pain/ fatigue level LTG Duration 8 weeks Two Impairment Standing balance Short Term Goal (STG) Patient will be able to stand with 4WW with min A for 1 minutes. STG Duration MET Journalism Intern Goal (LTG) Elise will move from sit to stand with Wale without LOB posteriorly. --Inconsistent LTG Duration 8 weeks 1 Impairment Transfers wc to mat table/bed Short Term Goal (STG) Patient will be min A with stand pivot transfer from wc to bed in 4-6 weeks. STG Duration MET Custodial Goal (LTG) Patient will perform all bed mobility with Wale.- pt can perform all bed mobility in the clinic on the treatment table with Wale-ModA, or even SBA at times (sidelying to sit ) but at home it sounds like her provides more assistance. LTG Duration 8 weeks Assessment Summary Assessment Pt needed frequent cues for thoracic extension during session today. She was able to complete nearly 40 minutes of exercises before feeling pretty fatigued Physical Therapy Plan Frequency and Duration Frequency of Treatment 2x/Week Duration of Treatment 4 weeks Plan of Care Start Date 08/15/20 Plan of Care End Date 09/12/20 Therapeutic Interventions Therapeutic Interventions Balance Training,Gait Training ,Home Exercise Program,Manual Therapy,Neuromuscular Re- education,Self-Care/Home Management,Therapeutic Activities,Therapeutic Exercises Next Visit Focus/Plan Next Note Type Progress Note Next Visit Plan Update POC Continue manual therapy as needed for pain and balance work in stride stance without ESCROW AGENT, encourage upright posture , hip stability with gait, gait/transfer safety
--- NOTE | 2020-09-12 16:13 | PT.OTN ---
Current Diagnoses Parkinson's disease (09/12/20) Other abnormalities of gait and mobility (09/12/20) Unspecified foreign body in respiratory tract, part unspecified causing other injury, sequela (09/12/20) History of falling (09/12/20) Physical Therapy Treatment Note PT-OP-A Visit Information Start: 04/25/20 08:10 Freq: Status: Active Protocol: Document 09/12/20 14:15 AMB (Rec: 09/12/20 16:07 AMB [email or web address]) Out-Patient Physical Therapy Visit Information Visit Information Visit Type Progress Note Visit Start Time 14:20 Visit Stop Time 15:00 Total Visit Minutes 40 Visit Number 21 Number of FIELD CROP II FARMWORKER Visits 0 PT-OP-B Current Condition Start: 04/25/20 08:10 Freq: Status: Active Protocol: Document 04/25/20 08:11 AMB (Rec: 04/25/20 08:32 AMB [id number]) Current Condition History of Current Condition Onset Date Parkinson's Disease diagnosed in 1993 Current Complaints Unsteadiness with independent gait/transfers History of Current Condition Chief complaint of weakness and instability when standing. The patient has progressive parkinson's disease and is primarily taken care of by her . Her speech is quiet and she has a hard time speaking loudly so her does report some information. The patient fell in 2010 and had hip surgery due to a fractured femoral head that has not had an updated x-ray per the 's report since then she does report L sided hip pain and weakness. The patient's helps her transfer to the bed, the recliner, the car, and to the toilet to and from the wheelchair which the patient does help push with but has occasional freezing situations . He does have a caregiver come in once a week. Prior Treatments and Tests Has had PT in the past, currently sees Speech Therapy for swallowing and speech. Deep Brain Stimulator present. Personal Factors Other Personal Factors That May Effect 2 months ago- fell out of Therapy/Recovery chair forward while was driving it, foot caught on threshold. Trying to get out of bed independently has led to falls. thinks he does about 75% of the transfers. PT-OP-C Subjective Start: 04/25/20 08:10 Freq: Status: Active Protocol: Document 09/12/20 14:15 AMB (Rec: 09/12/20 16:07 AMB [email or web address]) OP-PT Subjective Patient Comments Patient Comments When asked what she would like to do more of in PT, pt states stretching for her pain . She does have some pain most days of the week which she attributes to sitting in her w/c. Her states he thinks she is getting stronger with PT. PT-OP-D Balance Start: 04/25/20 08:10 Freq: Status: Active Protocol: Document 07/31/20 13:01 AMB (Rec: 07/31/20 13:09 AMB [id number]) OP-PT Balance Assessment Standing Balance Standing Balance Comments 30 seconds James Fall Scale Copyright Permission PT-OP-E Functional Tests Start: 04/25/20 08:10 Freq: Status: Active Protocol: Document 09/12/20 14:44 AMB (Rec: 09/12/20 14:52 AMB [id number]) Functional Tests Five Times Sit to Stand Test Score 54 Timed Up and Go (TUG) Score 31 TUG Impairment Rating 100% Impaired (Score 20) PT-OP-G Mobility & Gait Start: 04/25/20 08:10 Freq: Status: Active Protocol: Document 07/31/20 12:45 AMB (Rec: 07/31/20 13:48 AMB [email or web address]) OP Mobility Evaluation Bed Mobility Supine to and from Sit SBA when coming up into a sit up Transfers Sit to Stand Occassional Wale can be SBA at times OP Gait Assessment Comments Gait Comments Pt ambulates 200' with 4WW with scissoring gait and trendelenburg gait, worse with turning and backing up, difficulty maintaining upright posture. PT-OP-J Posture/Palpation/Skin Start: 04/25/20 08:10 Freq: Status: Active Protocol: Document 04/25/20 08:15 AMB (Rec: 04/25/20 15:57 AMB [email or web address]) Posture Evaluation Comments Posture Comments thoracic kyphosis and forward head PT-OP-M Strength Start: 04/25/20 08:10 Freq: Status: Active Protocol: Document 07/31/20 13:01 AMB (Rec: 07/31/20 13:09 AMB [id number]) Hip Strength Hip Manual Muscle Testing Left Flexion (L2) 4 Good Extension (S1) 3 Fair Abduction 3 Fair PT-OP-Q Treatments Start: 04/25/20 08:10 Freq: Status: Active Protocol: Document 09/12/20 14:15 AMB (Rec: 09/12/20 16:07 AMB [email or web address]) Therapeutic Exercises Supine Exercises 5 Supine Exercise Name hamstring stretch, butterfly stretch (adductors) Side bilateral Reps/Minutes 30x2 3 Supine Exercise Name passive hamstring/calf stretch Reps/Minutes 30x4 2 Supine Exercise Name bridges Reps/Minutes 2x8 Comments knees apart Sitting Exercises 1 Sitting Exercise Name sit to stand Comments loses balance backwards Gait Training Gait Activity 1 Description 4WW walking Distance/Duration [id number] Comments encouraged heel strike on R; focused on not adducting RLE and keeping pelvis stable; thoracic extension PT-OP-T Assessment and Plan Start: 04/25/20 08:10 Freq: Status: Active Protocol: Document 09/12/20 14:20 AMB (Rec: 09/12/20 14:44 AMB [id number]) Physical Therapy Assessment Goals Three Impairment Gait Short Term Goal (STG) Elise will ambulate with her 4WW for 1 minute with Wale. STG Duration MET Precision Lens Polisher Goal (LTG) Elise will ambulate with her 4WW without LOB or scissoring gait for 2 minutes. Scissoring gait continues- very dependent upon pain/ fatigue level LTG Duration 8 weeks Two Impairment Standing balance Short Term Goal (STG) Patient will be able to stand with 4WW with min A for 1 minutes. STG Duration MET Group Home Goal (LTG) Elise will move from sit to stand with Wale without LOB posteriorly. --Inconsistent LTG Duration 8 weeks 1 Impairment Transfers wc to mat table/bed Short Term Goal (STG) Patient will be min A with stand pivot transfer from wc to bed in 4-6 weeks. STG Duration MET Group Home Goal (LTG) Patient will perform all bed mobility with Wale.- pt can perform all bed mobility in the clinic on the treatment table with Wale-ModA, or even SBA at times (sidelying to sit ) but at home it sounds like her provides more assistance. LTG Duration 8 weeks Assessment Summary Assessment Most days of the week Pipe has some amount of pain in her pelvis/hamstrings, which she is attributing to sitting in her w/c. It is a sling seat that is too short for her and it sounds like her insurance has not paid for a new w/c in 7 years+ so they could consider getting a new w/c with a solid seat and see if that helps. Otherwise both she and her agree she is getting stronger. She did show a 6 second improvement in her timed up and go which is a statistically significant improvement. She will benefit from continued physical therapy for continued assistance with her pain and gait safety, but we have started discussing how we can make her independent with a program at home once her progress has plateaued. Physical Therapy Plan Frequency and Duration Frequency of Treatment 2x/Week Duration of Treatment 8 weeks Plan of Care Start Date 09/12/20 Plan of Care End Date 11/07/20 Therapeutic Interventions Therapeutic Interventions Balance Training,Gait Training ,Home Exercise Program,Manual Therapy,Neuromuscular Re- education,Self-Care/Home Management,Therapeutic Activities,Therapeutic Exercises Next Visit Focus/Plan Next Note Type Treatment Note Next Visit Plan Stretching, gait safety, balance, discuss if pt wants to pursue w/c that would fit her better , would need MD referral.
--- NOTE | 2020-09-12 16:13 | PT.OPPOC ---
Physical, Occupational & Speech Therapy At [facility] Current Diagnoses Parkinson's disease (09/12/20) Other abnormalities of gait and mobility (09/12/20) Unspecified foreign body in respiratory tract, part unspecified causing other injury, sequela (09/12/20) History of falling (09/12/20) Visit Care Team Role Provider Type Hudson Mcmanus MD Attending Provider Physician Primary Care Provider Referring Provider Specialty: Internal Medicine Address: [address] [place] [address], [address], [facility] Email: [email or web address] Plan Of Care PT-OP-T Assessment and Plan Start: 04/25/20 08:10 Freq: Status: Active Protocol: Document 09/12/20 14:20 AMB (Rec: 09/12/20 14:44 AMB [id number]) Physical Therapy Assessment Goals Three Impairment Gait Short Term Goal (STG) Elise will ambulate with her 4WW for 1 minute with Wale. STG Duration MET Quick Technician Goal (LTG) Elise will ambulate with her 4WW without LOB or scissoring gait for 2 minutes. Scissoring gait continues- very dependent upon pain/ fatigue level LTG Duration 8 weeks Two Impairment Standing balance Short Term Goal (STG) Patient will be able to stand with 4WW with min A for 1 minutes. STG Duration MET Care Home Goal (LTG) Elise will move from sit to stand with Wale without LOB posteriorly. --Inconsistent LTG Duration 8 weeks 1 Impairment Transfers wc to mat table/bed Short Term Goal (STG) Patient will be min A with stand pivot transfer from wc to bed in 4-6 weeks. STG Duration MET Quick Technician Goal (LTG) Patient will perform all bed mobility with Wale.- pt can perform all bed mobility in the clinic on the treatment table with Wale-ModA, or even SBA at times (sidelying to sit ) but at home it sounds like her provides more assistance. LTG Duration 8 weeks Assessment Summary Assessment Most days of the week Pipe has some amount of pain in her pelvis/hamstrings, which she is attributing to sitting in her w/c. It is a sling seat that is too short for her and it sounds like her insurance has not paid for a new w/c in 7 years+ so they could consider getting a new w/c with a solid seat and see if that helps. Otherwise both she and her agree she is getting stronger. She did show a 6 second improvement in her timed up and go which is a statistically significant improvement. She will benefit from continued physical therapy for continued assistance with her pain and gait safety, but we have started discussing how we can make her independent with a program at home once her progress has plateaued. Physical Therapy Plan Frequency and Duration Frequency of Treatment 2x/Week Duration of Treatment 8 weeks Plan of Care Start Date 09/12/20 Plan of Care End Date 11/07/20 Therapeutic Interventions Therapeutic Interventions Balance Training,Gait Training ,Home Exercise Program,Manual Therapy,Neuromuscular Re- education,Self-Care/Home Management,Therapeutic Activities,Therapeutic Exercises Next Visit Focus/Plan Next Note Type Treatment Note Next Visit Plan Stretching, gait safety, balance, discuss if pt wants to pursue w/c that would fit her better , would need MD referral. Plan of Care Dates Plan of Care Start Date 09/12/20 Plan of Care End Date 11/07/20 Electronically Signed by: Harriet Colvin, PT 09/12/20 [id number] Please Sign and Return: I have reviewed this Plan of Care and certify that the skilled therapy services above are required to meet the patient?s needs. Physician Signature Date Printed Name and Credentials Clinical Instructor Signature Printed Name and Credentials
--- NOTE | 2020-09-15 12:17 | PT.OTN ---
Current Diagnoses Parkinson's disease (09/15/20) Other abnormalities of gait and mobility (09/15/20) Unspecified foreign body in respiratory tract, part unspecified causing other injury, sequela (09/15/20) History of falling (09/15/20) Physical Therapy Treatment Note PT-OP-A Visit Information Start: 04/25/20 08:10 Freq: Status: Active Protocol: Document 09/15/20 11:22 MA (Rec: 09/15/20 12:16 MA [id number]) Out-Patient Physical Therapy Visit Information Visit Information Visit Type Treatment Note Visit Start Time 11:18 Visit Stop Time 12:00 Total Visit Minutes 42 Visit Number 22 Number of TUBE TEST TECHNICIAN Visits 1 Precautions Precautions Partial hip replacement in 2010, fall risk PT-OP-B Current Condition Start: 04/25/20 08:10 Freq: Status: Active Protocol: Document 04/25/20 08:11 AMB (Rec: 04/25/20 08:32 AMB [id number]) Current Condition History of Current Condition Onset Date Parkinson's Disease diagnosed in 1993 Current Complaints Unsteadiness with independent gait/transfers History of Current Condition Chief complaint of weakness and instability when standing. The patient has progressive parkinson's disease and is primarily taken care of by her . Her speech is quiet and she has a hard time speaking loudly so her does report some information. The patient fell in 2010 and had hip surgery due to a fractured femoral head that has not had an updated x-ray per the 's report since then she does report L sided hip pain and weakness. The patient's helps her transfer to the bed, the recliner, the car, and to the toilet to and from the wheelchair which the patient does help push with but has occasional freezing situations . He does have a caregiver come in once a week. Prior Treatments and Tests Has had PT in the past, currently sees Speech Therapy for swallowing and speech. Deep Brain Stimulator present. Personal Factors Other Personal Factors That May Effect 2 months ago- fell out of Therapy/Recovery chair forward while was driving it, foot caught on threshold. Trying to get out of bed independently has led to falls. thinks he does about 75% of the transfers. PT-OP-C Subjective Start: 04/25/20 08:10 Freq: Status: Active Protocol: Document 09/15/20 11:22 MA (Rec: 04/23/21 12:16 MA [id number]) OP-PT Subjective Patient Comments Patient Comments Pt would like to get referral from MD for new w/c PT-OP-D Balance Start: 04/25/20 08:10 Freq: Status: Active Protocol: Document 07/31/20 13:01 AMB (Rec: 07/31/20 13:09 AMB [id number]) OP-PT Balance Assessment Standing Balance Standing Balance Comments 30 seconds James Fall Scale Copyright Permission PT-OP-E Functional Tests Start: 04/25/20 08:10 Freq: Status: Active Protocol: Document 09/12/20 14:44 AMB (Rec: 09/12/20 14:52 AMB [id number]) Functional Tests Five Times Sit to Stand Test Score 54 Timed Up and Go (TUG) Score 31 TUG Impairment Rating 100% Impaired (Score 20) PT-OP-G Mobility & Gait Start: 04/25/20 08:10 Freq: Status: Active Protocol: Document 07/31/20 12:45 AMB (Rec: 07/31/20 13:48 AMB [email or web address]) OP Mobility Evaluation Bed Mobility Supine to and from Sit SBA when coming up into a sit up Transfers Sit to Stand Occassional Wale can be SBA at times OP Gait Assessment Comments Gait Comments Pt ambulates 200' with 4WW with scissoring gait and trendelenburg gait, worse with turning and backing up, difficulty maintaining upright posture. PT-OP-J Posture/Palpation/Skin Start: 04/25/20 08:10 Freq: Status: Active Protocol: Document 04/25/20 08:15 AMB (Rec: 04/25/20 15:57 AMB [email or web address]) Posture Evaluation Comments Posture Comments thoracic kyphosis and forward head PT-OP-M Strength Start: 04/25/20 08:10 Freq: Status: Active Protocol: Document 07/31/20 13:01 AMB (Rec: 07/31/20 13:09 AMB [id number]) Hip Strength Hip Manual Muscle Testing Left Flexion (L2) 4 Good Extension (S1) 3 Fair Abduction 3 Fair PT-OP-Q Treatments Start: 04/25/20 08:10 Freq: Status: Active Protocol: Document 09/15/20 11:22 MA (Rec: 09/15/20 12:16 MA [id number]) Gym Equipment Shuttle Recovery Unilateral Squats Details 50 Reps/Time 2x10 Bilateral Squats Details 100# Reps/Time 2x15 Gait Training Gait Activity 1 Description 4WW walking Comments Focused on turning 360 degrees without getting legs crossing encouraged heel strike on R; focused on not adducting RLE and keeping pelvis stable; thoracic extension Walking in // bars Description fwd/bkwd/ lateral Distance/Duration 6x length of // bars Treatment Focus thoracic extension Comments turns in parallel bars, working on not crossing legs Neuro Re-Education Treatment Balance Activities 2 Details stride stance Comments 1 hand support on 4WW then no support, pt tends to lose balance posteriorly, max of 12 seconds without needing Wale 1 Details WBOS Comments without UE support- 30 sec to 1 min Self-Care/Home Management Treatment Education Other Education Discussed with pt whether she wanted to try and get a new W/ C. PT thinks chair is causing pt's leg pain due to sling seat. Pt would like PT to contact MD for referral for new chair. PT present during conversation with pt and at end of session. PT-OP-T Assessment and Plan Start: 04/25/20 08:10 Freq: Status: Active Protocol: Document 09/15/20 11:22 MA (Rec: 09/15/20 12:16 MA [id number]) Physical Therapy Assessment Goals Three Impairment Gait Short Term Goal (STG) Elise will ambulate with her 4WW for 1 minute with Wale. STG Duration [employer] Goal (LTG) Elise will ambulate with her 4WW without LOB or scissoring gait for 2 minutes. Scissoring gait continues- very dependent upon pain/ fatigue level LTG Duration 8 weeks Two Impairment Standing balance Short Term Goal (STG) Patient will be able to stand with 4WW with min A for 1 minutes. STG Duration [employer] Goal (LTG) Elise will move from sit to stand with Wale without LOB posteriorly. --Inconsistent LTG Duration 8 weeks 1 Impairment Transfers wc to mat table/bed Short Term Goal (STG) Patient will be min A with stand pivot transfer from wc to bed in 4-6 weeks. STG Duration [employer] Goal (LTG) Patient will perform all bed mobility with Wale.- pt can perform all bed mobility in the clinic on the treatment table with Wale-ModA, or even SBA at times (sidelying to sit ) but at home it sounds like her provides more assistance. LTG Duration 8 weeks Assessment Summary Assessment Si did well with walking today . When she has to turn to sit down in a chair, pt often doesn't turn her feet, but instead twists her hips and collapses in chair with legs crossed at the ankles. Worked on lifting and turning feet in small circles with walker and then in parallel bars before practicing sitting in a chair again with better form. Pt was able to turn completely, and have toes and hips facing fwd, before slowly lowering herself into a chair after practicing turns. Continued disscussion with pt about trying to get a new w/c that would give her more support to aleviate some of her leg pain with pt stating she would like to go ahead and get a referral for new chair. PT present to discuss with and pt at end of session for w/c referral. Physical Therapy Plan Frequency and Duration Frequency of Treatment 2x/Week Duration of Treatment 8 weeks Plan of Care Start Date 09/12/20 Plan of Care End Date 11/07/20 Therapeutic Interventions Therapeutic Interventions Balance Training,Gait Training ,Home Exercise Program,Manual Therapy,Neuromuscular Re- education,Self-Care/Home Management,Therapeutic Activities,Therapeutic Exercises Next Visit Focus/Plan Next Note Type Treatment Note Next Visit Plan Work on continuing to turn LEs to safely sit in a chair. Reach out to dr rueda for w/c referral. Stretching, gait safety, balance
--- NOTE | 2020-09-25 15:32 | PT.OTN ---
Current Diagnoses Parkinson's disease (09/25/20) Other abnormalities of gait and mobility (09/25/20) Unspecified foreign body in respiratory tract, part unspecified causing other injury, sequela (09/25/20) History of falling (09/25/20) Physical Therapy Treatment Note PT-OP-A Visit Information Start: 04/25/20 08:10 Freq: Status: Active Protocol: Document 09/25/20 15:12 MA (Rec: 09/25/20 15:28 MA [id number]) Out-Patient Physical Therapy Visit Information Visit Information Visit Type Treatment Note Visit Start Time 14:30 Visit Stop Time 15:10 Total Visit Minutes 40 Visit Number 23 Number of REAL PROPERTY APPRAISER Visits 2 Precautions Precautions Partial hip replacement in 2010, fall risk PT-OP-B Current Condition Start: 04/25/20 08:10 Freq: Status: Active Protocol: Document 04/25/20 08:11 AMB (Rec: 04/25/20 08:32 AMB [id number]) Current Condition History of Current Condition Onset Date Parkinson's Disease diagnosed in 1993 Current Complaints Unsteadiness with independent gait/transfers History of Current Condition Chief complaint of weakness and instability when standing. The patient has progressive parkinson's disease and is primarily taken care of by her . Her speech is quiet and she has a hard time speaking loudly so her does report some information. The patient fell in 2010 and had hip surgery due to a fractured femoral head that has not had an updated x-ray per the 's report since then she does report L sided hip pain and weakness. The patient's helps her transfer to the bed, the recliner, the car, and to the toilet to and from the wheelchair which the patient does help push with but has occasional freezing situations . He does have a caregiver come in once a week. Prior Treatments and Tests Has had PT in the past, currently sees Speech Therapy for swallowing and speech. Deep Brain Stimulator present. Personal Factors Other Personal Factors That May Effect 2 months ago- fell out of Therapy/Recovery chair forward while was driving it, foot caught on threshold. Trying to get out of bed independently has led to falls. thinks he does about 75% of the transfers. PT-OP-C Subjective Start: 04/25/20 08:10 Freq: Status: Active Protocol: Document 09/25/20 15:12 MA (Rec: 05/03/21 15:28 MA [id number]) OP-PT Subjective Patient Comments Patient Comments Pt arrives with . Pt has nothing new to report. She has not been walking much at home because has not had time to help her. PT-OP-D Balance Start: 04/25/20 08:10 Freq: Status: Active Protocol: Document 07/31/20 13:01 AMB (Rec: 07/31/20 13:09 AMB [id number]) OP-PT Balance Assessment Standing Balance Standing Balance Comments 30 seconds James Fall Scale Copyright Permission PT-OP-E Functional Tests Start: 04/25/20 08:10 Freq: Status: Active Protocol: Document 09/12/20 14:44 AMB (Rec: 09/12/20 14:52 AMB [id number]) Functional Tests Five Times Sit to Stand Test Score 54 Timed Up and Go (TUG) Score 31 TUG Impairment Rating 100% Impaired (Score 20) PT-OP-G Mobility & Gait Start: 04/25/20 08:10 Freq: Status: Active Protocol: Document 07/31/20 12:45 AMB (Rec: 07/31/20 13:48 AMB [email or web address]) OP Mobility Evaluation Bed Mobility Supine to and from Sit SBA when coming up into a sit up Transfers Sit to Stand Occassional Wale can be SBA at times OP Gait Assessment Comments Gait Comments Pt ambulates 200' with 4WW with scissoring gait and trendelenburg gait, worse with turning and backing up, difficulty maintaining upright posture. PT-OP-J Posture/Palpation/Skin Start: 04/25/20 08:10 Freq: Status: Active Protocol: Document 04/25/20 08:15 AMB (Rec: 04/25/20 15:57 AMB [email or web address]) Posture Evaluation Comments Posture Comments thoracic kyphosis and forward head PT-OP-M Strength Start: 04/25/20 08:10 Freq: Status: Active Protocol: Document 07/31/20 13:01 AMB (Rec: 07/31/20 13:09 AMB [id number]) Hip Strength Hip Manual Muscle Testing Left Flexion (L2) 4 Good Extension (S1) 3 Fair Abduction 3 Fair PT-OP-Q Treatments Start: 04/25/20 08:10 Freq: Status: Active Protocol: Document 09/25/20 15:12 MA (Rec: 09/25/20 15:28 MA [id number]) Therapeutic Exercises Other Exercises 1 Other Exercise Name sit to stand Comments x8 working on not pushing with back of LEs Gait Training Gait Activity 1 Description 4WW walking Comments encouraged heel strike bilaterally; focused on not adducting RLE and keeping pelvis stable; thoracic extension Walking in // bars Description fwd/bkwd/ lateral Distance/Duration 6x length of // bars Treatment Focus thoracic extension Comments turns in parallel bars, working on not crossing legs Manual Therapy Treatment Soft Tissue Mobilization ITB Body Location L Mobilization Type Rolling,Sustained Pressure, Trigger Point Release Intensity/Depth Moderate Body Position Supine Self-Care/Home Management Treatment Education Caregiver Education Discussed with getting a firmer w/c seat to hopefully help with LE pain. PT-OP-T Assessment and Plan Start: 04/25/20 08:10 Freq: Status: Active Protocol: Document 09/25/20 15:12 MA (Rec: 09/25/20 15:28 MA [id number]) Physical Therapy Assessment Goals Three Impairment Gait Short Term Goal (STG) Elise will ambulate with her 4WW for 1 minute with Wale. STG Duration MET Fpc Goal (LTG) Elise will ambulate with her 4WW without LOB or scissoring gait for 2 minutes. Scissoring gait continues- very dependent upon pain/ fatigue level LTG Duration 8 weeks Two Impairment Standing balance Short Term Goal (STG) Patient will be able to stand with 4WW with min A for 1 minutes. STG Duration MET Fpc Goal (LTG) Elise will move from sit to stand with Wale without LOB posteriorly. --Inconsistent LTG Duration 8 weeks 1 Impairment Transfers wc to mat table/bed Short Term Goal (STG) Patient will be min A with stand pivot transfer from wc to bed in 4-6 weeks. STG Duration MET Fpc Goal (LTG) Patient will perform all bed mobility with Wale.- pt can perform all bed mobility in the clinic on the treatment table with Wale-ModA, or even SBA at times (sidelying to sit ) but at home it sounds like her provides more assistance. LTG Duration 8 weeks Assessment Summary Assessment Spoke with pt and at the beginning of therapy session about getting a firmer seat for w/c to decrease pt's LE pain. During session, pt's cut plywood piece to fit in seat of chair. Plywood fits perfectly in seat and pt will report back if having firmer surface decreases her leg pains next session. Pt showed good carryover from previous session with turning to sit in chairs and not just twisting hips and collapsing. During session, pt cramped through her L lateral leg and needed max A to get her to a chair to sit. She was able to limp last 50 feet to plinth walking on L toes but could not get foot flat to floor. Once on plinth, performed STM of L ITB which decresased pt's pain. Pt was able to stand and walk 3x50 feet without the pain returning at end of session and could get her L foot flat to floor. Physical Therapy Plan Frequency and Duration Frequency of Treatment 2x/Week Duration of Treatment 8 weeks Plan of Care Start Date 09/12/20 Plan of Care End Date 11/07/20 Therapeutic Interventions Therapeutic Interventions Balance Training,Gait Training ,Home Exercise Program,Manual Therapy,Neuromuscular Re- education,Self-Care/Home Management,Therapeutic Activities,Therapeutic Exercises Next Visit Focus/Plan Next Note Type Treatment Note Next Visit Plan Check how new plywood seat has helped with LE pain. Work on continuing to turn LEs to safely sit in a chair. Reach out to dr rueda for w/c referral. Stretching, gait safety, balance
--- NOTE | 2020-09-29 16:48 | PT.OTN ---
Current Diagnoses Parkinson's disease (09/29/20) Other abnormalities of gait and mobility (09/29/20) Unspecified foreign body in respiratory tract, part unspecified causing other injury, sequela (09/29/20) History of falling (09/29/20) Physical Therapy Treatment Note PT-OP-A Visit Information Start: 04/25/20 08:10 Freq: Status: Active Protocol: Document 09/29/20 10:42 MA (Rec: 09/29/20 11:18 MA [id number]) Out-Patient Physical Therapy Visit Information Visit Information Visit Type Treatment Note Visit Start Time 10:30 Visit Stop Time 11:10 Total Visit Minutes 40 Visit Number 24 Number of BLOOD BANK SPECIALIST Visits 3 Precautions Precautions Partial hip replacement in 2010, fall risk PT-OP-B Current Condition Start: 04/25/20 08:10 Freq: Status: Active Protocol: Document 04/25/20 08:11 AMB (Rec: 04/25/20 08:32 AMB [id number]) Current Condition History of Current Condition Onset Date Parkinson's Disease diagnosed in 1993 Current Complaints Unsteadiness with independent gait/transfers History of Current Condition Chief complaint of weakness and instability when standing. The patient has progressive parkinson's disease and is primarily taken care of by her . Her speech is quiet and she has a hard time speaking loudly so her does report some information. The patient fell in 2010 and had hip surgery due to a fractured femoral head that has not had an updated x-ray per the 's report since then she does report L sided hip pain and weakness. The patient's helps her transfer to the bed, the recliner, the car, and to the toilet to and from the wheelchair which the patient does help push with but has occasional freezing situations . He does have a caregiver come in once a week. Prior Treatments and Tests Has had PT in the past, currently sees Speech Therapy for swallowing and speech. Deep Brain Stimulator present. Personal Factors Other Personal Factors That May Effect 2 months ago- fell out of Therapy/Recovery chair forward while was driving it, foot caught on threshold. Trying to get out of bed independently has led to falls. thinks he does about 75% of the transfers. PT-OP-C Subjective Start: 04/25/20 08:10 Freq: Status: Active Protocol: Document 09/29/20 10:42 MA (Rec: 05/07/21 11:18 MA [id number]) OP-PT Subjective Patient Comments Patient Comments Pt states that she feels the board on her w/c is helping with her leg pain. She is worried she broke her hip replacement because it's been hurting her so badly on the L side and she can not stand or put weight on that leg. PT-OP-D Balance Start: 04/25/20 08:10 Freq: Status: Active Protocol: Document 07/31/20 13:01 AMB (Rec: 07/31/20 13:09 AMB [id number]) OP-PT Balance Assessment Standing Balance Standing Balance Comments 30 seconds James Fall Scale Copyright Permission PT-OP-E Functional Tests Start: 04/25/20 08:10 Freq: Status: Active Protocol: Document 09/12/20 14:44 AMB (Rec: 09/12/20 14:52 AMB [id number]) Functional Tests Five Times Sit to Stand Test Score 54 Timed Up and Go (TUG) Score 31 TUG Impairment Rating 100% Impaired (Score 20) PT-OP-G Mobility & Gait Start: 04/25/20 08:10 Freq: Status: Active Protocol: Document 07/31/20 12:45 AMB (Rec: 07/31/20 13:48 AMB [email or web address]) OP Mobility Evaluation Bed Mobility Supine to and from Sit SBA when coming up into a sit up Transfers Sit to Stand Occassional Wale can be SBA at times OP Gait Assessment Comments Gait Comments Pt ambulates 200' with 4WW with scissoring gait and trendelenburg gait, worse with turning and backing up, difficulty maintaining upright posture. PT-OP-J Posture/Palpation/Skin Start: 04/25/20 08:10 Freq: Status: Active Protocol: Document 04/25/20 08:15 AMB (Rec: 04/25/20 15:57 AMB [email or web address]) Posture Evaluation Comments Posture Comments thoracic kyphosis and forward head PT-OP-M Strength Start: 04/25/20 08:10 Freq: Status: Active Protocol: Document 07/31/20 13:01 AMB (Rec: 07/31/20 13:09 AMB [id number]) Hip Strength Hip Manual Muscle Testing Left Flexion (L2) 4 Good Extension (S1) 3 Fair Abduction 3 Fair PT-OP-Q Treatments Start: 04/25/20 08:10 Freq: Status: Active Protocol: Document 09/29/20 10:42 MA (Rec: 09/29/20 11:18 MA [id number]) Therapeutic Exercises Supine Exercises SLR Supine Exercise Name straight leg raise Side bilateral Reps/Minutes x10 2 Supine Exercise Name bridges Reps/Minutes 8x 5 sec hold Standing Exercises Hip Strengthening Standing Exercise Name ext and abd Side left Reps/Minutes x8 Manual Therapy Treatment Soft Tissue Mobilization ITB Body Location L Mobilization Type Sustained Pressure,Trigger Point Release Intensity/Depth Moderate Body Position Supine Manual Techniques PROM Type LLE Body Position Supine Comments PROM in all planes. Pt able to move passively without pain Self-Care/Home Management Treatment Education Caregiver Education Brought PT in with and pt about pt's increased LLE pain. PT recommended waiting until next week to see if pain subsides before calling primary care dr. If pain increases, pt should call for appt immediately. Pt and agree. PT-OP-T Assessment and Plan Start: 04/25/20 08:10 Freq: Status: Active Protocol: Document 09/29/20 10:42 MA (Rec: 09/29/20 11:18 MA [id number]) Physical Therapy Assessment Goals Three Impairment Gait Short Term Goal (STG) Elise will ambulate with her 4WW for 1 minute with Wale. STG Duration MET Alf Goal (LTG) Elise will ambulate with her 4WW without LOB or scissoring gait for 2 minutes. Scissoring gait continues- very dependent upon pain/ fatigue level LTG Duration 8 weeks Two Impairment Standing balance Short Term Goal (STG) Patient will be able to stand with 4WW with min A for 1 minutes. STG Duration MET Alf Goal (LTG) Elise will move from sit to stand with Wale without LOB posteriorly. --Inconsistent LTG Duration 8 weeks 1 Impairment Transfers wc to mat table/bed Short Term Goal (STG) Patient will be min A with stand pivot transfer from wc to bed in 4-6 weeks. STG Duration MET Alf Goal (LTG) Patient will perform all bed mobility with Wale.- pt can perform all bed mobility in the clinic on the treatment table with Wale-ModA, or even SBA at times (sidelying to sit ) but at home it sounds like her provides more assistance. LTG Duration 8 weeks Assessment Summary Assessment Pt is unable to actively abduct LLE today but can actively flex and ER with no pain. Pt has no pain in hip during PROM in all planes. Pt' s hip moves easily throughout all motions passively despite pt not being able to actively abduct LLE while supine or SL. When standing and abducting L hip, pt attempts to lean laterally to assist in hip movement and is unable to complete her usual full range when cued to remain neutral. PT made aware of situation and was present with pt and pt's at end of session to discuss resting LLE and waiting to call dr unless pain gets worse and transfers become unsafe. Pt was able to transfer with her normal Min A today from W/C to [facility] but did not perform gait due to increased pain and inability to put pressure through LLE. Physical Therapy Plan Frequency and Duration Frequency of Treatment 2x/Week Duration of Treatment 8 weeks Plan of Care Start Date 09/12/20 Plan of Care End Date 11/07/20 Therapeutic Interventions Therapeutic Interventions Balance Training,Gait Training ,Home Exercise Program,Manual Therapy,Neuromuscular Re- education,Self-Care/Home Management,Therapeutic Activities,Therapeutic Exercises Next Visit Focus/Plan Next Note Type Treatment Note Next Visit Plan Check how new plywood seat has helped with LE pain. Work on continuing to turn LEs to safely sit in a chair. Reach out to dr rueda for w/c referral. Stretching, gait safety, balance
--- NOTE | 2020-10-03 15:13 | PT.OTN ---
Current Diagnoses Parkinson's disease (10/03/20) Other abnormalities of gait and mobility (10/03/20) Unspecified foreign body in respiratory tract, part unspecified causing other injury, sequela (10/03/20) History of falling (10/03/20) Physical Therapy Treatment Note PT-OP-A Visit Information Start: 04/25/20 08:10 Freq: Status: Active Protocol: Document 10/03/20 11:00 AMB (Rec: 10/03/20 11:57 AMB [id number]) Out-Patient Physical Therapy Visit Information Visit Information Visit Type Treatment Note Visit Note 09/02 Visit Start Time 11:00 Visit Stop Time 11:45 Total Visit Minutes 45 Visit Number 25 Number of SANDFILL OPERATOR Visits 0 PT-OP-B Current Condition Start: 04/25/20 08:10 Freq: Status: Active Protocol: Document 04/25/20 08:11 AMB (Rec: 04/25/20 08:32 AMB [id number]) Current Condition History of Current Condition Onset Date Parkinson's Disease diagnosed in 1993 Current Complaints Unsteadiness with independent gait/transfers History of Current Condition Chief complaint of weakness and instability when standing. The patient has progressive parkinson's disease and is primarily taken care of by her . Her speech is quiet and she has a hard time speaking loudly so her does report some information. The patient fell in 2010 and had hip surgery due to a fractured femoral head that has not had an updated x-ray per the 's report since then she does report L sided hip pain and weakness. The patient's helps her transfer to the bed, the recliner, the car, and to the toilet to and from the wheelchair which the patient does help push with but has occasional freezing situations . He does have a caregiver come in once a week. Prior Treatments and Tests Has had PT in the past, currently sees Speech Therapy for swallowing and speech. Deep Brain Stimulator present. Personal Factors Other Personal Factors That May Effect 2 months ago- fell out of Therapy/Recovery chair forward while was driving it, foot caught on threshold. Trying to get out of bed independently has led to falls. thinks he does about 75% of the transfers. PT-OP-C Subjective Start: 04/25/20 08:10 Freq: Status: Active Protocol: Document 10/03/20 11:00 AMB (Rec: 10/03/20 15:08 AMB [email or web address]) OP-PT Subjective Patient Comments Patient Comments Pt is unsure about leg pain today because she hasn't done anything. when prompted it has not been hurting with transfers. Asked about large dark bruise on L arm, pt states she got covid shot in that arm a few weeks ago and thinks it's from that. PT-OP-D Balance Start: 04/25/20 08:10 Freq: Status: Active Protocol: Document 07/31/20 13:01 AMB (Rec: 07/31/20 13:09 AMB [id number]) OP-PT Balance Assessment Standing Balance Standing Balance Comments 30 seconds James Fall Scale Copyright Permission PT-OP-E Functional Tests Start: 04/25/20 08:10 Freq: Status: Active Protocol: Document 09/12/20 14:44 AMB (Rec: 09/12/20 14:52 AMB [id number]) Functional Tests Five Times Sit to Stand Test Score 54 Timed Up and Go (TUG) Score 31 TUG Impairment Rating 100% Impaired (Score 20) PT-OP-G Mobility & Gait Start: 04/25/20 08:10 Freq: Status: Active Protocol: Document 07/31/20 12:45 AMB (Rec: 07/31/20 13:48 AMB [email or web address]) OP Mobility Evaluation Bed Mobility Supine to and from Sit SBA when coming up into a sit up Transfers Sit to Stand Occassional Wale can be SBA at times OP Gait Assessment Comments Gait Comments Pt ambulates 200' with 4WW with scissoring gait and trendelenburg gait, worse with turning and backing up, difficulty maintaining upright posture. PT-OP-J Posture/Palpation/Skin Start: 04/25/20 08:10 Freq: Status: Active Protocol: Document 04/25/20 08:15 AMB (Rec: 04/25/20 15:57 AMB [email or web address]) Posture Evaluation Comments Posture Comments thoracic kyphosis and forward head PT-OP-M Strength Start: 04/25/20 08:10 Freq: Status: Active Protocol: Document 07/31/20 13:01 AMB (Rec: 07/31/20 13:09 AMB [id number]) Hip Strength Hip Manual Muscle Testing Left Flexion (L2) 4 Good Extension (S1) 3 Fair Abduction 3 Fair PT-OP-Q Treatments Start: 04/25/20 08:10 Freq: Status: Active Protocol: Document 10/03/20 11:00 AMB (Rec: 10/03/20 15:13 AMB [email or web address]) Therapeutic Exercises Supine Exercises 1 Supine Exercise Name passive stretching Reps/Minutes 30x5 Comments hamstring, piriformis, hip flexor Other Exercises 1 Other Exercise Name sit to stand Comments x8 working on not pushing with back of LEs Gait Training Gait Activity 1 Description 4WW walking Surface 200' Comments Left ant hip pain 2/10 after walk. encouraged heel strike bilaterally; focused on not adducting RLE and keeping pelvis stable; thoracic extension Manual Therapy Treatment Soft Tissue Mobilization iliopsoas/quads Body Location LEFT Mobilization Type Myofascial Release,Rolling, Sustained Pressure Adductors Body Location LEFT Mobilization Type Rolling,Sustained Pressure, Trigger Point Release Intensity/Depth Moderate Body Position Supine Comments LEs ER PT-OP-T Assessment and Plan Start: 04/25/20 08:10 Freq: Status: Active Protocol: Document 10/03/20 11:00 AMB (Rec: 10/03/20 15:08 AMB [email or web address]) Physical Therapy Assessment Goals Three Impairment Gait Short Term Goal (STG) Elise will ambulate with her 4WW for 1 minute with Wale. STG Duration MET Backrest Assembler Goal (LTG) Elise will ambulate with her 4WW without LOB or scissoring gait for 2 minutes. Scissoring gait continues- very dependent upon pain/ fatigue level LTG Duration 8 weeks Two Impairment Standing balance Short Term Goal (STG) Patient will be able to stand with 4WW with min A for 1 minutes. STG Duration MET Fdc Goal (LTG) Elise will move from sit to stand with Wale without LOB posteriorly. --Inconsistent LTG Duration 8 weeks 1 Impairment Transfers wc to mat table/bed Short Term Goal (STG) Patient will be min A with stand pivot transfer from wc to bed in 4-6 weeks. STG Duration MET Backrest Assembler Goal (LTG) Patient will perform all bed mobility with Wale.- pt can perform all bed mobility in the clinic on the treatment table with Wale-ModA, or even SBA at times (sidelying to sit ) but at home it sounds like her provides more assistance. LTG Duration 8 weeks Assessment Summary Assessment Pt had 0/10 pain in L LE today at beginning of session. Increased to 2/10 pain. Discussed at length with pt and . It is a new pain for her, but she is still able to use quad and hip flexor actively. She continues to be weak in hip abduction, but that is a long standing issue for her, and she is not having new pain over glutes. Encouraged to not over do, and to work on rolling pin at home, if pain increases could consider medical follow up, otherwise will continue to watch. Physical Therapy Plan Next Visit Focus/Plan Next Note Type Treatment Note Next Visit Plan Check to see if pt has been rolling L ant/lateral thigh, hip flexor stretching, careful with gait progression. Check how new plywood seat has helped with LE pain. Work on continuing to turn LEs to safely sit in a chair.
--- NOTE | 2020-10-06 13:35 | PT.OTN ---
Current Diagnoses Parkinson's disease (10/06/20) Other abnormalities of gait and mobility (10/06/20) Unspecified foreign body in respiratory tract, part unspecified causing other injury, sequela (10/06/20) History of falling (10/06/20) Physical Therapy Treatment Note PT-OP-A Visit Information Start: 04/25/20 08:10 Freq: Status: Active Protocol: Document 10/06/20 12:11 MA (Rec: 10/06/20 12:41 MA [id number]) Out-Patient Physical Therapy Visit Information Visit Information Visit Type Treatment Note Visit Note 10/02 Visit Start Time 12:00 Visit Stop Time 12:40 Total Visit Minutes 40 Visit Number 26 Number of TYPESETTER PERFORATOR OPERATOR Visits 1 Precautions Precautions Partial hip replacement in 2010, fall risk PT-OP-B Current Condition Start: 04/25/20 08:10 Freq: Status: Active Protocol: Document 04/25/20 08:11 AMB (Rec: 04/25/20 08:32 AMB [id number]) Current Condition History of Current Condition Onset Date Parkinson's Disease diagnosed in 1993 Current Complaints Unsteadiness with independent gait/transfers History of Current Condition Chief complaint of weakness and instability when standing. The patient has progressive parkinson's disease and is primarily taken care of by her . Her speech is quiet and she has a hard time speaking loudly so her does report some information. The patient fell in 2010 and had hip surgery due to a fractured femoral head that has not had an updated x-ray per the 's report since then she does report L sided hip pain and weakness. The patient's helps her transfer to the bed, the recliner, the car, and to the toilet to and from the wheelchair which the patient does help push with but has occasional freezing situations . He does have a caregiver come in once a week. Prior Treatments and Tests Has had PT in the past, currently sees Speech Therapy for swallowing and speech. Deep Brain Stimulator present. Personal Factors Other Personal Factors That May Effect 2 months ago- fell out of Therapy/Recovery chair forward while was driving it, foot caught on threshold. Trying to get out of bed independently has led to falls. thinks he does about 75% of the transfers. PT-OP-C Subjective Start: 04/25/20 08:10 Freq: Status: Active Protocol: Document 10/06/20 12:11 MA (Rec: 10/06/20 12:41 MA [id number]) OP-PT Subjective Patient Comments Patient Comments Pt's states her pain is better. Once pt is in session she states her pain is still bad when she WB through LLE. PT-OP-D Balance Start: 04/25/20 08:10 Freq: Status: Active Protocol: Document 07/31/20 13:01 AMB (Rec: 07/31/20 13:09 AMB [id number]) OP-PT Balance Assessment Standing Balance Standing Balance Comments 30 seconds James Fall Scale Copyright Permission PT-OP-E Functional Tests Start: 04/25/20 08:10 Freq: Status: Active Protocol: Document 09/12/20 14:44 AMB (Rec: 09/12/20 14:52 AMB [id number]) Functional Tests Five Times Sit to Stand Test Score 54 Timed Up and Go (TUG) Score 31 TUG Impairment Rating 100% Impaired (Score 20) PT-OP-G Mobility & Gait Start: 04/25/20 08:10 Freq: Status: Active Protocol: Document 07/31/20 12:45 AMB (Rec: 07/31/20 13:48 AMB [email or web address]) OP Mobility Evaluation Bed Mobility Supine to and from Sit SBA when coming up into a sit up Transfers Sit to Stand Occassional Wale can be SBA at times OP Gait Assessment Comments Gait Comments Pt ambulates 200' with 4WW with scissoring gait and trendelenburg gait, worse with turning and backing up, difficulty maintaining upright posture. PT-OP-J Posture/Palpation/Skin Start: 04/25/20 08:10 Freq: Status: Active Protocol: Document 04/25/20 08:15 AMB (Rec: 04/25/20 15:57 AMB [email or web address]) Posture Evaluation Comments Posture Comments thoracic kyphosis and forward head PT-OP-M Strength Start: 04/25/20 08:10 Freq: Status: Active Protocol: Document 07/31/20 13:01 AMB (Rec: 07/31/20 13:09 AMB [id number]) Hip Strength Hip Manual Muscle Testing Left Flexion (L2) 4 Good Extension (S1) 3 Fair Abduction 3 Fair PT-OP-Q Treatments Start: 04/25/20 08:10 Freq: Status: Active Protocol: Document 10/06/20 12:11 MA (Rec: 10/06/20 12:41 MA [id number]) Gym Equipment Shuttle Recovery Unilateral Squats Details 50 Reps/Time 2x10 Bilateral Squats Details 112# Reps/Time 2x10 Therapeutic Exercises Supine Exercises 2 Supine Exercise Name bridges Reps/Minutes 8x 5 sec hold Gait Training Gait Activity 1 Description 4WW walking Surface 2x100 ft Comments Left ant hip pain 2-4/10 after walk. encouraged heel strike bilaterally; focused on not adducting RLE and keeping pelvis stable; thoracic extension Manual Therapy Treatment Soft Tissue Mobilization ITB Body Location L Mobilization Type Sustained Pressure,Trigger Point Release Intensity/Depth Moderate Body Position Supine Adductors Body Location LEFT Mobilization Type Rolling,Sustained Pressure, Trigger Point Release Intensity/Depth Moderate Body Position Supine Comments LEs ER Self-Care/Home Management Treatment Education Caregiver Education Spoke with about calling w/c company back to get pt set up with a new chair . Discussed the possibility of a loosened hip replacement causing pt's LLE pain and about calling primary dr to get and x-ray for pt's L hip. PT-OP-T Assessment and Plan Start: 04/25/20 08:10 Freq: Status: Active Protocol: Document 10/06/20 12:11 MA (Rec: 10/06/20 12:41 MA [id number]) Physical Therapy Assessment Goals Three Impairment Gait Short Term Goal (STG) Elise will ambulate with her 4WW for 1 minute with Wale. STG Duration MET Custodial Goal (LTG) Elise will ambulate with her 4WW without LOB or scissoring gait for 2 minutes. Scissoring gait continues- very dependent upon pain/ fatigue level LTG Duration 8 weeks Two Impairment Standing balance Short Term Goal (STG) Patient will be able to stand with 4WW with min A for 1 minutes. STG Duration MET Custodial Goal (LTG) Elise will move from sit to stand with Wale without LOB posteriorly. --Inconsistent LTG Duration 8 weeks 1 Impairment Transfers wc to mat table/bed Short Term Goal (STG) Patient will be min A with stand pivot transfer from wc to bed in 4-6 weeks. STG Duration MET Direct Care Provider Goal (LTG) Patient will perform all bed mobility with Wale.- pt can perform all bed mobility in the clinic on the treatment table with Wale-ModA, or even SBA at times (sidelying to sit ) but at home it sounds like her provides more assistance. LTG Duration 8 weeks Assessment Summary Assessment Pt had no pain at beginning of session. Once standing, she has 2/10 pain in LLE near greater trochanter. After gait , pt's pain increased to a 4-5 /10. Discussed with pt and her at end of session how pt's leg pain is limiting therapy and there is the possibility of a loosened part due to pt's osteoporosis and increased lateral lean R causing more pressure on the lateral L hip. Pt's will call dr lea to get x- ray and he will also call w/c [employer] to get set up with chair. Physical Therapy Plan Frequency and Duration Frequency of Treatment 2x/Week Duration of Treatment 8 weeks Plan of Care Start Date 09/12/20 Plan of Care End Date 11/07/20 Therapeutic Interventions Therapeutic Interventions Balance Training,Gait Training ,Home Exercise Program,Manual Therapy,Neuromuscular Re- education,Self-Care/Home Management,Therapeutic Activities,Therapeutic Exercises Next Visit Focus/Plan Next Note Type Treatment Note Next Visit Plan Check to see if pt has been rolling L ant/lateral thigh, hip flexor stretching, careful with gait progression. Check how new plywood seat has helped with LE pain. Work on continuing to turn LEs to safely sit in a chair.
--- NOTE | 2020-10-13 16:14 | PT.OTN ---
Current Diagnoses Parkinson's disease (10/13/20) Other abnormalities of gait and mobility (10/13/20) Unspecified foreign body in respiratory tract, part unspecified causing other injury, sequela (10/13/20) History of falling (10/13/20) Physical Therapy Treatment Note PT-OP-A Visit Information Start: 04/25/20 08:10 Freq: Status: Active Protocol: Document 10/13/20 11:00 AMB (Rec: 10/13/20 13:32 AMB [email or web address]) Out-Patient Physical Therapy Visit Information Visit Information Visit Type Treatment Note Visit Note 11/02 Visit Start Time 11:05 Visit Stop Time 11:45 Total Visit Minutes 40 Visit Number 27 Number of ADVANCE SCOUT Visits 0 PT-OP-B Current Condition Start: 04/25/20 08:10 Freq: Status: Active Protocol: Document 04/25/20 08:11 AMB (Rec: 04/25/20 08:32 AMB [id number]) Current Condition History of Current Condition Onset Date Parkinson's Disease diagnosed in 1993 Current Complaints Unsteadiness with independent gait/transfers History of Current Condition Chief complaint of weakness and instability when standing. The patient has progressive parkinson's disease and is primarily taken care of by her . Her speech is quiet and she has a hard time speaking loudly so her does report some information. The patient fell in 2010 and had hip surgery due to a fractured femoral head that has not had an updated x-ray per the 's report since then she does report L sided hip pain and weakness. The patient's helps her transfer to the bed, the recliner, the car, and to the toilet to and from the wheelchair which the patient does help push with but has occasional freezing situations . He does have a caregiver come in once a week. Prior Treatments and Tests Has had PT in the past, currently sees Speech Therapy for swallowing and speech. Deep Brain Stimulator present. Personal Factors Other Personal Factors That May Effect 2 months ago- fell out of Therapy/Recovery chair forward while was driving it, foot caught on threshold. Trying to get out of bed independently has led to falls. thinks he does about 75% of the transfers. PT-OP-C Subjective Start: 04/25/20 08:10 Freq: Status: Active Protocol: Document 10/13/20 11:00 AMB (Rec: 10/13/20 13:32 AMB [email or web address]) OP-PT Subjective Patient Comments Patient Comments Pt had maximum of 1/10 pain in PT today, but did not push ambulation. Pt states pain was 10/10 with walking last week in anterior thigh. PT-OP-D Balance Start: 04/25/20 08:10 Freq: Status: Active Protocol: Document 07/31/20 13:01 AMB (Rec: 07/31/20 13:09 AMB [id number]) OP-PT Balance Assessment Standing Balance Standing Balance Comments 30 seconds James Fall Scale Copyright Permission PT-OP-E Functional Tests Start: 04/25/20 08:10 Freq: Status: Active Protocol: Document 09/12/20 14:44 AMB (Rec: 09/12/20 14:52 AMB [id number]) Functional Tests Five Times Sit to Stand Test Score 54 Timed Up and Go (TUG) Score 31 TUG Impairment Rating 100% Impaired (Score 20) PT-OP-G Mobility & Gait Start: 04/25/20 08:10 Freq: Status: Active Protocol: Document 07/31/20 12:45 AMB (Rec: 07/31/20 13:48 AMB [email or web address]) OP Mobility Evaluation Bed Mobility Supine to and from Sit SBA when coming up into a sit up Transfers Sit to Stand Occassional Wale can be SBA at times OP Gait Assessment Comments Gait Comments Pt ambulates 200' with 4WW with scissoring gait and trendelenburg gait, worse with turning and backing up, difficulty maintaining upright posture. PT-OP-J Posture/Palpation/Skin Start: 04/25/20 08:10 Freq: Status: Active Protocol: Document 04/25/20 08:15 AMB (Rec: 04/25/20 15:57 AMB [email or web address]) Posture Evaluation Comments Posture Comments thoracic kyphosis and forward head PT-OP-M Strength Start: 04/25/20 08:10 Freq: Status: Active Protocol: Document 07/31/20 13:01 AMB (Rec: 07/31/20 13:09 AMB [id number]) Hip Strength Hip Manual Muscle Testing Left Flexion (L2) 4 Good Extension (S1) 3 Fair Abduction 3 Fair PT-OP-Q Treatments Start: 04/25/20 08:10 Freq: Status: Active Protocol: Document 10/13/20 16:09 AMB (Rec: 10/13/20 16:13 AMB [email or web address]) Therapeutic Exercises Supine Exercises 2 Supine Exercise Name bridges Reps/Minutes 8x 5 sec hold 1 Supine Exercise Name passive stretching Reps/Minutes 30x5 Comments hamstring, piriformis, hip flexor Standing Exercises 4 Standing Exercise Name sit to stand Reps/Minutes 2x10 Comments pushing up from surface Gait Training Gait Activity 1 Description 4WW walking Surface 1x100 ft Comments Left ant hip pain 1/10 after walk. encouraged heel strike bilaterally; focused on not adducting RLE and keeping pelvis stable; thoracic extension Neuro Re-Education Treatment Balance Activities 2 Details stride stance Comments 1 hand support on 4WW then no support, 1 Details WBOS Comments without UE support- 30 sec to 1 min- working on upright posture PT-OP-T Assessment and Plan Start: 04/25/20 08:10 Freq: Status: Active Protocol: Document 10/13/20 11:00 AMB (Rec: 10/13/20 13:32 AMB [email or web address]) Physical Therapy Assessment Assessment Summary Assessment Pt did not have pain at greater trochanter today, more anterior thigh today. 1/10 max, but did not push walking . Pt's is going to follow up with imaging referral and this PT to follow up with w/c referral. Physical Therapy Plan Next Visit Focus/Plan Next Note Type Treatment Note Next Visit Plan Check to see if pt has been rolling L ant/lateral thigh, hip flexor stretching, careful with gait progression. Check how new plywood seat has helped with LE pain. Work on continuing to turn LEs to safely sit in a chair.
--- NOTE | 2020-10-16 15:46 | PT.OTN ---
Current Diagnoses Parkinson's disease (10/16/20) Other abnormalities of gait and mobility (10/16/20) Unspecified foreign body in respiratory tract, part unspecified causing other injury, sequela (10/16/20) History of falling (10/16/20) Physical Therapy Treatment Note PT-OP-A Visit Information Start: 04/25/20 08:10 Freq: Status: Active Protocol: Document 10/16/20 14:15 AMB (Rec: 10/16/20 14:38 AMB [id number]) Out-Patient Physical Therapy Visit Information Visit Information Visit Type Treatment Note Visit Note 12/02 Visit Start Time 14:15 Visit Stop Time 15:00 Total Visit Minutes 45 Visit Number 28 PT-OP-B Current Condition Start: 04/25/20 08:10 Freq: Status: Active Protocol: Document 04/25/20 08:11 AMB (Rec: 04/25/20 08:32 AMB [id number]) Current Condition History of Current Condition Onset Date Parkinson's Disease diagnosed in 1993 Current Complaints Unsteadiness with independent gait/transfers History of Current Condition Chief complaint of weakness and instability when standing. The patient has progressive parkinson's disease and is primarily taken care of by her . Her speech is quiet and she has a hard time speaking loudly so her does report some information. The patient fell in 2010 and had hip surgery due to a fractured femoral head that has not had an updated x-ray per the 's report since then she does report L sided hip pain and weakness. The patient's helps her transfer to the bed, the recliner, the car, and to the toilet to and from the wheelchair which the patient does help push with but has occasional freezing situations . He does have a caregiver come in once a week. Prior Treatments and Tests Has had PT in the past, currently sees Speech Therapy for swallowing and speech. Deep Brain Stimulator present. Personal Factors Other Personal Factors That May Effect 2 months ago- fell out of Therapy/Recovery chair forward while was driving it, foot caught on threshold. Trying to get out of bed independently has led to falls. thinks he does about 75% of the transfers. PT-OP-C Subjective Start: 04/25/20 08:10 Freq: Status: Active Protocol: Document 10/16/20 14:15 AMB (Rec: 10/16/20 14:38 AMB [id number]) OP-PT Subjective Patient Comments Patient Comments Pt states she has not had pain in her leg, but that is because I haven't done anything. PT-OP-D Balance Start: 04/25/20 08:10 Freq: Status: Active Protocol: Document 07/31/20 13:01 AMB (Rec: 07/31/20 13:09 AMB [id number]) OP-PT Balance Assessment Standing Balance Standing Balance Comments 30 seconds James Fall Scale Copyright Permission PT-OP-E Functional Tests Start: 04/25/20 08:10 Freq: Status: Active Protocol: Document 09/12/20 14:44 AMB (Rec: 09/12/20 14:52 AMB [id number]) Functional Tests Five Times Sit to Stand Test Score 54 Timed Up and Go (TUG) Score 31 TUG Impairment Rating 100% Impaired (Score 20) PT-OP-G Mobility & Gait Start: 04/25/20 08:10 Freq: Status: Active Protocol: Document 07/31/20 12:45 AMB (Rec: 07/31/20 13:48 AMB [email or web address]) OP Mobility Evaluation Bed Mobility Supine to and from Sit SBA when coming up into a sit up Transfers Sit to Stand Occassional Wale can be SBA at times OP Gait Assessment Comments Gait Comments Pt ambulates 200' with 4WW with scissoring gait and trendelenburg gait, worse with turning and backing up, difficulty maintaining upright posture. PT-OP-J Posture/Palpation/Skin Start: 04/25/20 08:10 Freq: Status: Active Protocol: Document 04/25/20 08:15 AMB (Rec: 04/25/20 15:57 AMB [email or web address]) Posture Evaluation Comments Posture Comments thoracic kyphosis and forward head PT-OP-M Strength Start: 04/25/20 08:10 Freq: Status: Active Protocol: Document 07/31/20 13:01 AMB (Rec: 07/31/20 13:09 AMB [id number]) Hip Strength Hip Manual Muscle Testing Left Flexion (L2) 4 Good Extension (S1) 3 Fair Abduction 3 Fair PT-OP-Q Treatments Start: 04/25/20 08:10 Freq: Status: Active Protocol: Document 10/16/20 14:15 AMB (Rec: 10/16/20 15:46 AMB [id number]) Gym Equipment Shuttle Recovery Bilateral Squats Details 100# Reps/Time 3x10 Therapeutic Exercises Supine Exercises 1 Supine Exercise Name passive stretching Reps/Minutes 30x5 Comments hamstring, piriformis, hip flexor, adductors Standing Exercises 4 Standing Exercise Name sit to stand Reps/Minutes 2x10 Comments isometric hold midway through ROM Gait Training Gait Activity 1 Description 4WW Surface [id number] Comments No pain, did have weakness last 50 feet of last rep with increased trunk lean but no pain noted. PT-OP-T Assessment and Plan Start: 04/25/20 08:10 Freq: Status: Active Protocol: Document 10/16/20 14:15 AMB (Rec: 10/16/20 15:46 AMB [id number]) Physical Therapy Assessment Assessment Summary Assessment Pt did not have increased pain with walking today. They have not had imaging yet but are planning on it, have made contact with w/c provider and are not interested in a power chair, but are working on a manual chair that fits her better. Overall felt stretching but at this visit seemed to be back to prior baseline function, asked Sy to pay attention to if she is extra sore tonight/tomorrow. Physical Therapy Plan Next Visit Focus/Plan Next Note Type Treatment Note Next Visit Plan Check to see if pt has been rolling L ant/lateral thigh, hip flexor stretching, careful with gait progression. Check how new plywood seat has helped with LE pain. Work on continuing to turn LEs to safely sit in a chair.
--- NOTE | 2020-10-20 15:26 | PT.OTN ---
Current Diagnoses Parkinson's disease (10/20/20) Other abnormalities of gait and mobility (10/20/20) Unspecified foreign body in respiratory tract, part unspecified causing other injury, sequela (10/20/20) History of falling (10/20/20) Physical Therapy Treatment Note PT-OP-A Visit Information Start: 04/25/20 08:10 Freq: Status: Active Protocol: Document 10/20/20 13:00 AMB (Rec: 10/20/20 15:26 AMB [email or web address]) Out-Patient Physical Therapy Visit Information Visit Information Visit Type Treatment Note Visit Note 01/02 pt was 10 min late Visit Start Time 13:00 Visit Stop Time 13:30 Total Visit Minutes 30 Visit Number 29 PT-OP-B Current Condition Start: 04/25/20 08:10 Freq: Status: Active Protocol: Document 04/25/20 08:11 AMB (Rec: 04/25/20 08:32 AMB [id number]) Current Condition History of Current Condition Onset Date Parkinson's Disease diagnosed in 1993 Current Complaints Unsteadiness with independent gait/transfers History of Current Condition Chief complaint of weakness and instability when standing. The patient has progressive parkinson's disease and is primarily taken care of by her . Her speech is quiet and she has a hard time speaking loudly so her does report some information. The patient fell in 2010 and had hip surgery due to a fractured femoral head that has not had an updated x-ray per the 's report since then she does report L sided hip pain and weakness. The patient's helps her transfer to the bed, the recliner, the car, and to the toilet to and from the wheelchair which the patient does help push with but has occasional freezing situations . He does have a caregiver come in once a week. Prior Treatments and Tests Has had PT in the past, currently sees Speech Therapy for swallowing and speech. Deep Brain Stimulator present. Personal Factors Other Personal Factors That May Effect 2 months ago- fell out of Therapy/Recovery chair forward while was driving it, foot caught on threshold. Trying to get out of bed independently has led to falls. thinks he does about 75% of the transfers. PT-OP-C Subjective Start: 04/25/20 08:10 Freq: Status: Active Protocol: Document 10/20/20 13:00 AMB (Rec: 10/20/20 15:26 AMB [email or web address]) OP-PT Subjective Patient Comments Patient Comments Oh states Edgar was bending down in her w/c to do a lumbar flexion stretch and she fell forward out of her chair 2 days ago. Her right ribs have been painful since. Edgar states current pain is 2/10. It does hurt with palpation and with breating, coughing, no bruises evident. PT-OP-D Balance Start: 04/25/20 08:10 Freq: Status: Active Protocol: Document 07/31/20 13:01 AMB (Rec: 07/31/20 13:09 AMB [id number]) OP-PT Balance Assessment Standing Balance Standing Balance Comments 30 seconds James Fall Scale Copyright Permission PT-OP-E Functional Tests Start: 04/25/20 08:10 Freq: Status: Active Protocol: Document 09/12/20 14:44 AMB (Rec: 09/12/20 14:52 AMB [id number]) Functional Tests Five Times Sit to Stand Test Score 54 Timed Up and Go (TUG) Score 31 TUG Impairment Rating 100% Impaired (Score 20) PT-OP-G Mobility & Gait Start: 04/25/20 08:10 Freq: Status: Active Protocol: Document 07/31/20 12:45 AMB (Rec: 07/31/20 13:48 AMB [email or web address]) OP Mobility Evaluation Bed Mobility Supine to and from Sit SBA when coming up into a sit up Transfers Sit to Stand Occassional Wale can be SBA at times OP Gait Assessment Comments Gait Comments Pt ambulates 200' with 4WW with scissoring gait and trendelenburg gait, worse with turning and backing up, difficulty maintaining upright posture. PT-OP-J Posture/Palpation/Skin Start: 04/25/20 08:10 Freq: Status: Active Protocol: Document 04/25/20 08:15 AMB (Rec: 04/25/20 15:57 AMB [email or web address]) Posture Evaluation Comments Posture Comments thoracic kyphosis and forward head PT-OP-M Strength Start: 04/25/20 08:10 Freq: Status: Active Protocol: Document 07/31/20 13:01 AMB (Rec: 07/31/20 13:09 AMB [id number]) Hip Strength Hip Manual Muscle Testing Left Flexion (L2) 4 Good Extension (S1) 3 Fair Abduction 3 Fair PT-OP-Q Treatments Start: 04/25/20 08:10 Freq: Status: Active Protocol: Document 10/20/20 13:00 AMB (Rec: 10/20/20 15:26 AMB [email or web address]) Therapeutic Exercises Supine Exercises SLR Supine Exercise Name straight leg raise Side bilateral Reps/Minutes x10 1 Supine Exercise Name passive stretching Reps/Minutes 30x5 Comments hamstring, piriformis, hip flexor, adductors Standing Exercises 4 Standing Exercise Name sit to stand Reps/Minutes 2x10 Comments isometric hold midway through ROM Gait Training Gait Activity 1 Description 4WW Surface [id number] Comments No pain, did have weakness last 50 feet of last rep with increased trunk lean but no pain noted. PT-OP-T Assessment and Plan Start: 04/25/20 08:10 Freq: Status: Active Protocol: Document 10/20/20 13:00 AMB (Rec: 10/20/20 15:26 AMB [email or web address]) Physical Therapy Assessment Assessment Summary Assessment Hip X-ray was normal and Sy's walking appeared to be back to baseline today- still having a little anterior L thigh pain , but not as bad as it has been. Will need to keep watch on rib pain and if it worsens may need MD consult, as long as it is improving it will be up to pt whether to see MD or not. Physical Therapy Plan Next Visit Focus/Plan Next Note Type Treatment Note Next Visit Plan Recheck rib pain, recheck w/c fitting- is that moving forward
--- NOTE | 2020-10-24 15:54 | PT.OTN ---
Current Diagnoses Parkinson's disease (10/24/20) Other abnormalities of gait and mobility (10/24/20) Unspecified foreign body in respiratory tract, part unspecified causing other injury, sequela (10/24/20) History of falling (10/24/20) Physical Therapy Treatment Note PT-OP-A Visit Information Start: 04/25/20 08:10 Freq: Status: Active Protocol: Document 10/24/20 13:30 AMB (Rec: 10/24/20 13:54 AMB [id number]) Out-Patient Physical Therapy Visit Information Visit Information Visit Type Treatment Note Visit Note 02/02 Visit Start Time 13:30 Visit Stop Time 14:15 Total Visit Minutes 31 Visit Number 30 PT-OP-B Current Condition Start: 04/25/20 08:10 Freq: Status: Active Protocol: Document 04/25/20 08:11 AMB (Rec: 04/25/20 08:32 AMB [id number]) Current Condition History of Current Condition Onset Date Parkinson's Disease diagnosed in 1993 Current Complaints Unsteadiness with independent gait/transfers History of Current Condition Chief complaint of weakness and instability when standing. The patient has progressive parkinson's disease and is primarily taken care of by her . Her speech is quiet and she has a hard time speaking loudly so her does report some information. The patient fell in 2010 and had hip surgery due to a fractured femoral head that has not had an updated x-ray per the 's report since then she does report L sided hip pain and weakness. The patient's helps her transfer to the bed, the recliner, the car, and to the toilet to and from the wheelchair which the patient does help push with but has occasional freezing situations . He does have a caregiver come in once a week. Prior Treatments and Tests Has had PT in the past, currently sees Speech Therapy for swallowing and speech. Deep Brain Stimulator present. Personal Factors Other Personal Factors That May Effect 2 months ago- fell out of Therapy/Recovery chair forward while was driving it, foot caught on threshold. Trying to get out of bed independently has led to falls. thinks he does about 75% of the transfers. PT-OP-C Subjective Start: 04/25/20 08:10 Freq: Status: Active Protocol: Document 10/24/20 13:30 AMB (Rec: 10/24/20 15:52 AMB [id number]) OP-PT Subjective Patient Comments Patient Comments Pt states rib pain is better, was sad yesterday because she was unable to go up to [place] to see her sister. PT-OP-D Balance Start: 04/25/20 08:10 Freq: Status: Active Protocol: Document 07/31/20 13:01 AMB (Rec: 07/31/20 13:09 AMB [id number]) OP-PT Balance Assessment Standing Balance Standing Balance Comments 30 seconds James Fall Scale Copyright Permission PT-OP-E Functional Tests Start: 04/25/20 08:10 Freq: Status: Active Protocol: Document 10/24/20 13:30 AMB (Rec: 10/24/20 14:01 AMB [id number]) Functional Tests Timed Up and Go (TUG) Score 37 TUG Impairment Rating 100% Impaired (Score 20) PT-OP-G Mobility & Gait Start: 04/25/20 08:10 Freq: Status: Active Protocol: Document 07/31/20 12:45 AMB (Rec: 07/31/20 13:48 AMB [email or web address]) OP Mobility Evaluation Bed Mobility Supine to and from Sit SBA when coming up into a sit up Transfers Sit to Stand Occassional Wale can be SBA at times OP Gait Assessment Comments Gait Comments Pt ambulates 200' with 4WW with scissoring gait and trendelenburg gait, worse with turning and backing up, difficulty maintaining upright posture. PT-OP-J Posture/Palpation/Skin Start: 04/25/20 08:10 Freq: Status: Active Protocol: Document 04/25/20 08:15 AMB (Rec: 04/25/20 15:57 AMB [email or web address]) Posture Evaluation Comments Posture Comments thoracic kyphosis and forward head PT-OP-M Strength Start: 04/25/20 08:10 Freq: Status: Active Protocol: Document 07/31/20 13:01 AMB (Rec: 07/31/20 13:09 AMB [id number]) Hip Strength Hip Manual Muscle Testing Left Flexion (L2) 4 Good Extension (S1) 3 Fair Abduction 3 Fair PT-OP-Q Treatments Start: 04/25/20 08:10 Freq: Status: Active Protocol: Document 10/24/20 13:30 AMB (Rec: 10/24/20 15:52 AMB [id number]) Gym Equipment Shuttle Recovery Bilateral Squats Details 100# Reps/Time 3x10 Gait Training Gait Activity 1 Description 4WW Surface [id number] Comments 2/10 pain at end, did have weakness last 50 feet of last rep with increased trunk lean but no pain noted. Manual Therapy Treatment Soft Tissue Mobilization iliopsoas/quads Body Location BILAT Mobilization Type Myofascial Release,Rolling, Sustained Pressure PT-OP-T Assessment and Plan Start: 04/25/20 08:10 Freq: Status: Active Protocol: Document 10/24/20 13:30 AMB (Rec: 10/24/20 13:54 AMB [id number]) Physical Therapy Assessment Goals Three Impairment Gait Short Term Goal (STG) Elise will ambulate with her 4WW for 1 minute with Wale. STG Duration MET Pulper Operator Goal (LTG) Elise will ambulate with her 4WW without LOB or scissoring gait for 2 minutes. Scissoring gait continues- very dependent upon pain/ fatigue level LTG Duration 8 weeks Two Impairment Standing balance Short Term Goal (STG) Patient will be able to stand with 4WW with min A for 1 minutes. STG Duration MET Pulper Operator Goal (LTG) Elise will move from sit to stand with Wale without LOB posteriorly. --Inconsistent LTG Duration 8 weeks 1 Impairment Transfers wc to mat table/bed Short Term Goal (STG) Patient will be min A with stand pivot transfer from wc to bed in 4-6 weeks. STG Duration MET Pulper Operator Goal (LTG) Patient will perform all bed mobility with Wale.- pt can perform all bed mobility in the clinic on the treatment table with Wale-ModA, or even SBA at times (sidelying to sit ) but at home it sounds like her provides more assistance. LTG Duration 8 weeks Assessment Summary Assessment Elise struggled with TUG and 5x/sit to stand at end of session today, so will retest next visit. Overall pain better, asked multiple times about rib pain and pt does think it's getting better. Physical Therapy Plan Next Visit Focus/Plan Next Note Type Progress Note Next Visit Plan Retest functional tasks
--- NOTE | 2020-10-27 16:00 | PT.OTN ---
Current Diagnoses Parkinson's disease (10/27/20) Other abnormalities of gait and mobility (10/27/20) Unspecified foreign body in respiratory tract, part unspecified causing other injury, sequela (10/27/20) History of falling (10/27/20) Physical Therapy Treatment Note PT-OP-A Visit Information Start: 04/25/20 08:10 Freq: Status: Active Protocol: Document 10/27/20 14:15 AMB (Rec: 10/29/20 10:29 AMB [email or web address]) Out-Patient Physical Therapy Visit Information Visit Information Visit Type Discharge Summary Visit Start Time 14:15 Visit Stop Time 15:00 Total Visit Minutes 45 Visit Number 31 PT-OP-B Current Condition Start: 04/25/20 08:10 Freq: Status: Active Protocol: Document 04/25/20 08:11 AMB (Rec: 04/25/20 08:32 AMB [id number]) Current Condition History of Current Condition Onset Date Parkinson's Disease diagnosed in 1993 Current Complaints Unsteadiness with independent gait/transfers History of Current Condition Chief complaint of weakness and instability when standing. The patient has progressive parkinson's disease and is primarily taken care of by her . Her speech is quiet and she has a hard time speaking loudly so her does report some information. The patient fell in 2010 and had hip surgery due to a fractured femoral head that has not had an updated x-ray per the 's report since then she does report L sided hip pain and weakness. The patient's helps her transfer to the bed, the recliner, the car, and to the toilet to and from the wheelchair which the patient does help push with but has occasional freezing situations . He does have a caregiver come in once a week. Prior Treatments and Tests Has had PT in the past, currently sees Speech Therapy for swallowing and speech. Deep Brain Stimulator present. Personal Factors Other Personal Factors That May Effect 2 months ago- fell out of Therapy/Recovery chair forward while was driving it, foot caught on threshold. Trying to get out of bed independently has led to falls. thinks he does about 75% of the transfers. PT-OP-C Subjective Start: 04/25/20 08:10 Freq: Status: Active Protocol: Document 10/27/20 14:15 AMB (Rec: 10/29/20 10:35 AMB [email or web address]) OP-PT Subjective Patient Comments Patient Comments Sy has been going biking on her recumbent bike 3-4x/week, she does get some hamstring pain with that but states it is worth it. No quad pain or rib pain with that. Overall pain is manageable right now. PT-OP-D Balance Start: 04/25/20 08:10 Freq: Status: Active Protocol: Document 07/31/20 13:01 AMB (Rec: 07/31/20 13:09 AMB [id number]) OP-PT Balance Assessment Standing Balance Standing Balance Comments 30 seconds James Fall Scale Copyright Permission PT-OP-E Functional Tests Start: 04/25/20 08:10 Freq: Status: Active Protocol: Document 10/27/20 14:30 AMB (Rec: 10/27/20 15:22 AMB [id number]) Functional Tests Five Times Sit to Stand Test Score 34 Timed Up and Go (TUG) Score 30 TUG Impairment Rating 100% Impaired (Score 20) PT-OP-G Mobility & Gait Start: 04/25/20 08:10 Freq: Status: Active Protocol: Document 07/31/20 12:45 AMB (Rec: 07/31/20 13:48 AMB [email or web address]) OP Mobility Evaluation Bed Mobility Supine to and from Sit SBA when coming up into a sit up Transfers Sit to Stand Occassional Wale can be SBA at times OP Gait Assessment Comments Gait Comments Pt ambulates 200' with 4WW with scissoring gait and trendelenburg gait, worse with turning and backing up, difficulty maintaining upright posture. PT-OP-J Posture/Palpation/Skin Start: 04/25/20 08:10 Freq: Status: Active Protocol: Document 04/25/20 08:15 AMB (Rec: 04/25/20 15:57 AMB [email or web address]) Posture Evaluation Comments Posture Comments thoracic kyphosis and forward head PT-OP-M Strength Start: 04/25/20 08:10 Freq: Status: Active Protocol: Document 07/31/20 13:01 AMB (Rec: 07/31/20 13:09 AMB [id number]) Hip Strength Hip Manual Muscle Testing Left Flexion (L2) 4 Good Extension (S1) 3 Fair Abduction 3 Fair PT-OP-Q Treatments Start: 04/25/20 08:10 Freq: Status: Active Protocol: Document 10/27/20 14:15 AMB (Rec: 10/29/20 10:35 AMB [email or web address]) Gym Equipment Shuttle Recovery Bilateral Squats Details 100# Reps/Time 3x10 Therapeutic Activity Therapeutic Activity Transfer Sit to Stand Reps/Minutes 5x Comments Working on not pushing with the back of the legs and bending the knees to sit back down Gait Training Gait Activity 2 Description TUG Comments x3 with 4WW 1 Description 4WW Surface [id number] Comments 2/10 pain at end, did have weakness last 50 feet of last rep with increased trunk lean but no pain noted. PT-OP-T Assessment and Plan Start: 04/25/20 08:10 Freq: Status: Active Protocol: Document 10/27/20 14:15 AMB (Rec: 10/29/20 10:29 AMB [email or web address]) Physical Therapy Assessment Goals Three Impairment Gait Short Term Goal (STG) Elise will ambulate with her 4WW for 1 minute with Wale. STG Duration MET Tester Regulator Goal (LTG) Elise will ambulate with her 4WW without LOB or scissoring gait for 2 minutes. Scissoring gait continues- very dependent upon pain/ fatigue level LTG Duration PROGRESS MADE- depends on pain Two Impairment Standing balance Short Term Goal (STG) Patient will be able to stand with 4WW with min A for 1 minutes. STG Duration MET Tester Regulator Goal (LTG) Elise will move from sit to stand with Wale without LOB posteriorly. --Inconsistent LTG Duration MET 3/4 of the time 1 Impairment Transfers wc to mat table/bed Short Term Goal (STG) Patient will be min A with stand pivot transfer from wc to bed in 4-6 weeks. STG Duration MET Tester Regulator Goal (LTG) Patient will perform all bed mobility with Wale.- pt can perform all bed mobility in the clinic on the treatment table with Wale-ModA, or even SBA at times (sidelying to sit ) but at home it sounds like her provides more assistance. LTG Duration PARTIALLY MET Assessment Summary Assessment Sy showed good improvement with 5x sit to stand, but only 1 second improveement in timed up and go. Overall her pain is under control at this point, but she hasn't shown enough progress to continue PT for now. She would be welcome to return in the future if she has a change in status or if she has a decline , as she did show some improvement, and with her progressive diseas physical therapy can be appropriate to prevent furuther decline. Physical Therapy Plan Discharge Physical Therapy Discharge Comments Sy has shown improvement in her pain, gait, and transfers, but her progress has been inconsistent and slow. The fact that she has a progressive disease and has shown progress is impressive, so we will take a break from PT for the summer when she is more active, and she could return at a later date to reassess to see if she has had a decline, and then we would need to return to PT.
== END 2020-10-30 07:52 | disposition home or self-care (01) ==
LOC: PHYS 14:15
PROVIDERS: PCP Internal Medicine; Referring Provider Internal Medicine; Visit Provider Internal Medicine
DX: T17.908S Unspecified foreign body in respiratory tract, part unspecified causing other injury, sequela (principal); G20 Parkinson's disease; Z91.81 History of falling; R26.89 Other abnormalities of gait and mobility
CPT/HCPCS: 97110; 97112; 97116; 97140; 97162; 97530; 97535

== ENCOUNTER 2020-11-06 18:37 | Inpatient (IN) | payer MEDICARE, SELFPAY ==
[2020-11-06] VITALS (10 sets, daily range): BP systolic 95–149; BP diastolic 46–66; PULSE 59–75; RESP 16–21; TEMP 36.6–36.7; O2SAT 94–97; BMI 23.5
--- NOTE | 2020-11-06 18:35 | DI.RAD.S_ITS ---
PROCEDURE: XR HIP W PEL IF DONE RT 2V INDICATIONS: fall TECHNIQUE: AP pelvis with lateral view of the right hip. COMPARISON: [facility], CR, XR HIP W PEL IF DONE LT 2V, 10/16/2020, 15:09. FINDINGS: Bones: There is a mildly impacted intertrochanteric fracture of the proximal right femur with mild medial displacement of the lesser trochanter component. There is also associated mild varus angulation along the fracture. No dislocation of the hip. A left hip prosthesis is redemonstrated. Visualized pelvic ring appears intact. Soft tissues: The visualized bowel gas pattern is normal. No suspicious soft tissue calcifications. IMPRESSION: 1. Mildly impacted and angulated intertrochanteric fracture of the proximal right femur. Dictated by: Tomás Babin M.D. on 11/06/2020 at 19:14 Approved by: Tomás Babin M.D. on 11/06/2020 at 19:16
--- NOTE | 2020-11-06 19:20 | ED_ITS ---
HPI - General Adult General Chief complaint: Extremity Injury, Lower Stated complaint: Fall/ rt leg injury Time Seen by Provider: 11/06/20 19:04 Source: patient and family () Mode of arrival: EMS Limitations: other (Parkinson's disease) History of Present Illness HPI narrative: Patient is a 75-year-old female. Not on anticoagulation. Has a history of Parkinson's disease. At baseline she has very limited mobility. At best she can walk with a walker and some significant assistance. She needs help with using the restroom. She needs help with dressing herself. She off needs help with feeding herself. Has had a left hip fracture in the past. She is brought in by EMS for evaluation of right hip pain after a fall. Patient's states she was sitting in her chair and she stood up to look out the window when she fell over and landed on her right hip. Has had pain in her right groin since then. There were no other injuries in the event Related Data Home Medications Medication Instructions Recorded Confirmed donepezil [Aricept] 10 mg PO QDAY #0 05/05/12 11/06/20 aspirin 81 mg tablet,delayed 81 mg PO DAILY 01/14/18 11/06/20 release venlafaxine 75 mg capsule,extended 75 mg PO BEDTIME #90 cap 01/14/19 11/06/20 release 24 hr clonazepam 0.5 mg tablet 1.5 mg PO BEDTIME #90 tab 03/10/19 11/06/20 lorazepam 1 mg tablet See Rx Instructions PO DAILY PRN 03/10/19 11/06/20 tab trihexyphenidyl 2 mg tablet 2 mg PO TID tab 03/10/19 11/06/20 carbidopa 10 mg-levodopa 100 mg 5 tab PO DIRECTED tab 06/03/19 11/06/20 tablet fluticasone propion-salmeterol 2 inh INHALATION DAILY 11/06/20 11/06/20 [Advair Diskus] methylphenidate HCl 5 mg PO BID 11/06/20 11/06/20 trihexyphenidyl 2 mg PO PRN PRN 11/06/20 11/06/20 Previous Rx's Medication Instructions Recorded Disabled Parking #1 each 01/08/18 metoprolol succinate 25 mg 25 mg PO DAILY #90 tab 11/11/19 tablet,extended release 24 hr oxycodone-acetaminophen 5 mg-325 1 tab PO Q4HP PRN #90 tab 09/07/20 mg tablet Allergies Allergy/AdvReac Type Severity Reaction Status Date / Time levofloxacin Allergy Severe Hives, Verified 02/01/20 15:20 Water Blisters, Small Fever fentanyl Allergy Unknown Verified 02/01/20 15:20 hydromorphone Allergy Unknown Verified 02/01/20 15:20 Penicillins Allergy Unknown Verified 02/01/20 15:20 Review of Systems Review of Systems Narrative: Provided by patient and Constitutional Constitutional: Reports system reviewed and no additional complaints, except as documented Cardiovascular Cardiovascular: Denies chest pain Respiratory Respiratory: Reports system reviewed and no additional complaints, except as documented Musculoskeletal Comments: Right groin pain, shortened and internally rotated right hip Integumentary/Breasts Skin/Breast: Reports system reviewed and no additional complaints, except as documented Neurologic Neurologic: Denies behavioral changes Psychiatric Psychiatric: Denies behavioral changes Hematologic/Lymphatic On Anticoagulants: No Allergic/Immunologic Allergic/Immunologic: Reports system reviewed and no additional complaints, e xcept as documented Patient History Medical History Aspiration, chronic pulmonary Dysphagia, neurologic Mild intermittent asthma without complication (01/18/11) Osteoporosis (01/18/11) Parkinson's disease (01/18/11) Surgical History History of surgery Status post hysterectomy with oophorectomy Social History household members: spouse Smoking Status: Never smoker alcohol intake: never Smoking Status: Never smoker Substance Use Type: does not use Exam Initial Vital Signs Initial Vital Signs: Vital Signs Temperature 97.9 F 11/06/20 19:04 Pulse Rate 64 11/06/20 19:04 Respiratory Rate 21 11/06/20 19:04 Blood Pressure 145/64 H 11/06/20 19:04 Pulse Oximetry 96 11/06/20 19:04 Const General: cooperative and comfortable HENMT Head: normal to inspection and normocephalic Resp Effort & Inspection: normal respiratory effort Auscultation: clear to auscultation bilaterally Cardio Rate: regular rate Rhythm: regular rhythm Skin General: no rashes or lesions noted Neuro General: patient alert and patient awake Extrem Other: Patient with tenderness to palpation of the right hemipelvis. Her right knee and right ankle are unremarkable. Her upper extremities are unremarkable. Psych Appearance: grossly normal and well kempt Course Orders Ordered: ED Orders 11/06/20 18:35 XR hip w pel if done RT 2V Stat 11/06/20 19:21 Consult to Orthopedic Surgery Stat 11/06/20 19:33 CT pelvis wo con Stat 11/06/20 19:40 COVID19 - ADMIT (HOUSING ASSISTANT PROPERTY MANAGER swab/PCR) Stat 11/06/20 20:15 Basic Metabolic Panel Stat Complete Blood Count AUTO DIFF Stat Type and Screen Stat Albuterol (Albuterol 2.5 Mg/3 Ml Neb (Adult)) 2.5 mg INH Q2H PRN PRN Reason: Wheezing/SHORTNESS OF BREATH Albuterol (Albuterol 2.5 Mg/3 Ml Neb (Adult)) 2.5 mg INH Q4HRWA ROGERS Aspirin (Aspirin Ec 81 Mg Tablet) 81 mg PO BEDTIME ROGERS Last Admin: 11/06/20 23:34 Dose: Not Given Documented by: Admin: 11/06/20 23:24 Dose: Not Given Documented by: LIZET Budesonide (Budesonide 0.5 Mg/2 Ml Neb) 0.5 mg INH RTBID ROGERS Carbidopa/Levodopa (Carbidopa-Levodopa 10/100 Tablet) 1 each PO 1500 ROGERS Carbidopa/Levodopa (Carbidopa-Levodopa 10/100 Tablet) 2 each PO 0800,1200 ROGERS Clonazepam (Clonazepam 0.5 Mg Tablet) 1.5 mg PO BEDTIME ROGERS Last Admin: 11/06/20 22:19 Dose: 1.5 mg Documented by: LIZET Donepezil HCl (Donepezil 5 Mg Tablet) 10 mg PO BEDTIME ROGERS Last Admin: 11/06/20 23:31 Dose: 10 mg Documented by: LIZET Sodium Chloride (Normal Saline 0.9%) 1,000 mls @ 100 mls/hr IV CONT ROGERS Last Admin: 11/06/20 22:18 Dose: 100 mls/hr Documented by: Infusion: 11/06/20 22:18 Dose: 100 mls/hr Documented by: Admin: 11/06/20 19:32 Dose: 100 mls/hr Documented by: COLIN Metoprolol Succinate (Metoprolol Er 25 Mg Tablet) 25 mg PO BEDTIME [facility] Last Admin: 11/06/20 23:34 Dose: Not Given Documented by: LIZET Morphine Sulfate (Morphine 2 Mg/Ml Inj) 2 mg IV Q4HR PRN PRN Reason: Pain, Moderate (4-6) Last Admin: 11/06/20 22:19 Dose: 2 mg Documented by: LIZET Naloxone HCl (Naloxone 0.4 Mg/Ml Vial) 0.2 mg IV Q2MIN PRN PRN Reason: Opiate Reversal Non-Formulary Medication (Trihexyphenidyl) 2 mg PO TID [facility] Last Admin: 11/06/20 23:35 Dose: 2 mg Documented by: LIZET Non-Formulary Medication (Trihexyphenidyl) 2 mg PO DAILY PRN PRN Reason: Dystonia Ondansetron HCl (Ondansetron 4 Mg/2 Ml Inj) 4 mg IV Q8HR PRN PRN Reason: Nausea And Vomiting Venlafaxine HCl (Venlafaxine Er 75 Mg Cap) 75 mg PO BEDTIME [facility] Last Admin: 11/06/20 23:35 Dose: 75 mg Documented by: LIZET Discontinued Medications Aspirin (Aspirin Ec 81 Mg Tablet) 81 mg PO DAILY [facility] Carbidopa/Levodopa (Carbidopa-Levodopa 10/100 Tablet) 2 each PO 0900,1200 PRN PRN Reason: muscle spasm Carbidopa/Levodopa (Carbidopa-Levodopa 10/100 Tablet) 1 each PO 1500 ROGERS Carbidopa/Levodopa (Carbidopa-Levodopa 10/100 Tablet) 2 each PO BID ROGERS Donepezil HCl (Donepezil 5 Mg Tablet) 10 mg PO DAILY [facility] Last Admin: 11/06/20 23:43 Dose: Not Given Documented by: LIZET Metoprolol Succinate (Metoprolol Er 25 Mg Tablet) 25 mg PO DAILY [facility] Morphine Sulfate (Morphine 2 Mg/Ml Inj) 2 mg IV NOW ONE Stop: 11/06/20 19:21 Last Admin: 11/06/20 19:32 Dose: 2 mg Documented by: COLIN Trihexyphenidyl 2 Mg (Tablet)) 4 mg PO DAILY [facility] Venlafaxine HCl (Venlafaxine Er 75 Mg Cap) 75 mg PO DAILY ROGERS Vital Signs Vital signs: Vital Signs - 8 hr 11/06/20 19:04 11/06/20 19:13 11/06/20 19:28 Temperature 97.9 F Pulse Rate 64 74 68 Respiratory Rate 21 Blood Pressure 145/64 H 145/64 H Pulse Oximetry 96 96 95 11/06/20 19:30 Temperature Pulse Rate 65 Respiratory Rate Blood Pressure Pulse Oximetry 96 Medical Decision Making Lab Data Lab results reviewed: Yes I reviewed the patient's lab results. Result diagrams: 11/06/20 20:15 11/06/20 20:15 Imaging Data Extremity x-ray #1: Attestation: I personally reviewed and interpreted this imaging study as follows: My Impression: Right intertrochanteric hip fracture Lower extremity CT: Radiologist's Impression: [address] [address]PM Scan ReportSigned Patient: Elise Villalta [facility]#: [id number]: 6Acct:[id number]/Sex: 75 / FDate of Service: 11/06/20Loc: [id number] Number: [id number] Procedure: CT pelvis wo con Ordering Provider: Jay Beckham D.O. PROCEDURE: CT PEL WO CON INDICATIONS: Right fem fx TECHNIQUE: Noncontrast 3 mm axial sections acquired through the bony pelvis, with coronal and sagittal reformatting. COMPARISON: [facility], CR, XR HIP W PEL IF DONE RT 2V, 11/06/2020, 18:44. [facility], CT, CT PEL WO CON, 08/19/2019, 18:00. [facility], CR, XR FEMUR LT MIN 2V, 08/19/2019, 16:16. FINDINGS: Image quality: There is metallic streak artifact from patient's left hip prost hesis. Bones: There is a comminuted mildly impacted intertrochanteric fracture of the proximal right femur. Mild to moderate medial displacement of the lesser trochanteric fracture fragments is demonstrated. There is varus angulation between the femoral neck and shaft components. No fracture extension to the hip joint. The bony pelvis appears intact. A left hip prosthesis is redemonstrated without periprosthetic fractures. Soft tissues: There is periarticular edema around the right hip joint. A small right hip joint effusion is present. No intraperitoneal free fluid within the vi sualized pelvis. Visualized bowel loops appear normal in caliber. IMPRESSION: 1. Comminuted, mildly impacted and angulated intertrochanteric fracture of the proximal right femur as described. Dictated by: Tomás Babin M.D. on 11/06/2020 at 20:27 Approved by: Tomás Babin M.D. on 11/06/2020 at 20:[address] [facility] Narrative Medical decision making narrative: Patient with a intertrochanteric right hip fracture. This did appear to be a mechanical fall as she stood up without assistance and fell over. She did not hit her head. She is at baseline mental status per her who is at baseline. She is not on anticoagulation. Dr. Amaya with orthopedics recommended CT scan of the hip which was obtained. Discu ssed the case with Dr. Chin who is on-call for the patient's primary doctor who will admit for further evaluation and treatment. I did discuss the findings of the x-ray with the patient and her . He expressed understanding and agreement with the admission. Discharge Plan Departure Patient Disposition: Admitted As Inpatient Clinical Impression: Closed right hip fracture, Parkinson's disease Admit Date/Time: 11/06/20 19:37 Admit Provider: Bailey Chin
[2020-11-06] MEDS: SODIUM CHLORIDE 0.9% 1,000 ML 100 ML IV ×2 (19:32→22:18)
[2020-11-06] MEDS: MORPHINE 2 MG/ML INJ IV ×2 (19:32→22:19)
--- NOTE | 2020-11-06 19:33 | DI.CT.S_ITS ---
PROCEDURE: CT PEL WO CON INDICATIONS: Right fem fx TECHNIQUE: Noncontrast 3 mm axial sections acquired through the bony pelvis, with coronal and sagittal reformatting. COMPARISON: [facility], CR, XR HIP W PEL IF DONE RT 2V, 11/06/2020, 18:44. [facility], CT, CT PEL WO CON, 08/19/2019, 18:00. [facility], CR, XR FEMUR LT MIN 2V, 08/19/2019, 16:16. FINDINGS: Image quality: There is metallic streak artifact from patient's left hip prosthesis. Bones: There is a comminuted mildly impacted intertrochanteric fracture of the proximal right femur. Mild to moderate medial displacement of the lesser trochanteric fracture fragments is demonstrated. There is varus angulation between the femoral neck and shaft components. No fracture extension to the hip joint. The bony pelvis appears intact. A left hip prosthesis is redemonstrated without periprosthetic fractures. Soft tissues: There is periarticular edema around the right hip joint. A small right hip joint effusion is present. No intraperitoneal free fluid within the visualized pelvis. Visualized bowel loops appear normal in caliber. IMPRESSION: 1. Comminuted, mildly impacted and angulated intertrochanteric fracture of the proximal right femur as described. Dictated by: Tomás Babin M.D. on 11/06/2020 at 20:27 Approved by: Tomás Babin M.D. on 11/06/2020 at 20:30
[2020-11-06 20:23] LABS: Add Manual Diff / Slide Review NO; Basophils Absolute Auto 0 /uL (0-100); Eosinophils Absolute Auto 100 /uL (0-450); Eosinophils Percent Auto 2.7 % (2-4); Hematocrit 32.4 % (36-46); Lymphocytes Absolute Auto 1500 /uL (1100-4500); Lymphocytes Percent Auto 29.8 % (25-40); Mean Corpuscular HGB Conc 33.9 % (30-36); Mean Corpuscular Hemoglobin 31.6 PG (26-34); Mean Corpuscular Volume 93.5 fL (80-100); Monocytes Absolute Auto 300 /uL (0-900); Neutrophils Absolute Auto 3100 /uL (1500-7000); Neutrophils Percent Auto 60.5 % (50-75); Platelet Count 166 X10^3/uL (150-400); Red Blood Cell Count 3.47 X10^6/uL (4.0-5.2); Red Cell Distribution Width 13.2 % (11.6-14.8); White Blood Cell Count 5.1 X10^3/uL (4.5-11.0)
[2020-11-06 20:43] LABS: BUN Creatinine Ratio 29.2 (6-22); Blood Urea Nitrogen 19 mg/dL (7-17); Calcium 8.3 mg/dL (8.4-10.2); Carbon Dioxide 27 mmol/L (22-32); Chloride 105 mmol/L (98-107); Estimated Glomerular Filt Rate > 60.0 mL/min (>60); Glucose 106 mg/dL (80-110); HEMOLYSIS < 15 (0-50); Potassium 4.5 mmol/L (3.4-5.1); Sodium 138 mmol/L (137-145)
[2020-11-06 20:53] LABS: COVID19 - ADMIT (NP swab/PCR) Negative (Negative)
--- NOTE | 2020-11-06 21:37 | PC.ADMIT ---
Addendum entered by Kiara Gastelum R.N. 11/06/20 23:54: Pt. has dyskinesias related to Parkinson's disease. Pt and spouse report that she is able to drink water and swallow pills and does not need accomodations for dysphagia other than sitting upright. Original Note: [id number] Admission Note: The patient,Elise Villalta,75 y/o, was given written information regarding hospital policies, unit procedures and contact persons. Patient's smoking status: Never smoker. Vital Signs - 8 hr 11/06/20 19:04 11/06/20 19:13 11/06/20 19:28 Temperature 97.9 F Pulse Rate 64 74 68 Respiratory Rate 21 Blood Pressure 145/64 H 145/64 H Pulse Oximetry 96 96 95 11/06/20 19:30 11/06/20 20:19 11/06/20 20:20 Temperature Pulse Rate 65 59 L 70 Respiratory Rate Blood Pressure 149/66 H Pulse Oximetry 96 97 97 11/06/20 20:30 Temperature Pulse Rate 69 Respiratory Rate Blood Pressure 147/66 H Pulse Oximetry 97 Patient up from ED via stretcher. 3 person assist with sliding her over to AC bed. Patient A&O, calm and cooperative. Was able to answer all questions appropriately. went home to get her home med list, which will be updated once he arrives back with it. Pain 2/10 and tolerable, Ice applied to rt him.
[2020-11-06] MEDS: clonazePAM 0.5 MG TABLET 1.5 MG PO (22:19)
[2020-11-06] MEDS: DONEPEZIL 5 MG TABLET 10 MG PO (23:31)
[2020-11-06] MEDS: TRIHEXYPHENIDYL 2 MG 2 EACH PO (23:35)
[2020-11-06] MEDS: VENLAFAXINE ER 75 MG CAP PO (23:35)
[2020-11-07] VITALS (28 sets, daily range): BP systolic 82–136; BP diastolic 41–61; PULSE 73–98; RESP 8–95; TEMP 36.1–36.8; O2SAT 10–99; BMI 23.5
--- NOTE | 2020-11-07 | DI.RAD.S_ITS ---
PROCEDURE: XR HIP W PEL IF DONE RT 4V INDICATIONS: RIGHT HIP ORIF TECHNIQUE: Intraoperative fluoroscopic views of the right hip and femur. Total of 7 intraoperative fluoroscopic views are submitted for review. COMPARISON: None. FINDINGS: Nondiagnostic intraoperative fluoroscopic views demonstrate postsurgical changes of right anterograde femoral nail placement with proximal and distal interlocking screws. The proximal lag screws traverse the femoral neck fracture previously seen. IMPRESSION: Right hip ORIF hardware without acute complicating hardware feature. Dictated by: Frederick Bills M.D. on 11/07/2020 at 19:19 Approved by: Frederick Bills M.D. on 11/07/2020 at 19:21
--- NOTE | 2020-11-07 03:16 | PC.NURSE ---
0040 Checked pt. to do shift assessment noted her SPO2 was 100% in 1 liter. Turned 02 down to 0.5 liter & SPO2 now 97%. Patient sound asleep, will monitor.
[2020-11-07] MEDS: MORPHINE 2 MG/ML INJ IV ×3 (05:23→14:05)
--- NOTE | 2020-11-07 06:47 | PC.NURSE ---
Dr. Chin notified low UOP of 100 cc overnight. Ordered to bolus patient for only 250 cc X 1 now.
[2020-11-07] MEDS: SODIUM CHLORIDE 0.9% 250 ML IV (06:53)
--- NOTE | 2020-11-07 07:36 | P.CONS_ITS ---
History of Present Illness Consult details Date Patient Seen: 11/07/20 Time Patient Seen: 07:36 Chief complaint: Fall/ rt leg injury Reason for consult: Right intertrochanteric femur fracture Narrative: Patient is a 75-year-old female. Not on anticoagulation. Has a history of Parkinson's disease. At baseline she has very limited mobility. At best she can walk with a walker and some significant assistance. She needs help with using the restroom. She needs help with dressing herself. She off needs help with feeding herself. Has had a left hip fracture in the past. She is brought in by EMS for evaluation of right hip pain after a fall. Patient's states she was sitting in her chair and she stood up to look out the window when she fell over and landed on her right hip. Has had pain in her right groin since then. There were no other injuries in the event. Patient is somewhat difficult to understand this morning. Pain appears well controlled. Patient understands that she will be going to surgery this afternoon evening. She requests that we contact her to let him know the timeline. Meds Home Medications and Allergies Home Medications Medication Instructions Recorded Confirmed Type donepezil [Aricept] 10 mg PO QDAY #0 05/05/12 11/06/20 History Disabled Parking #1 each 01/08/18 11/06/20 Rx aspirin 81 mg tablet,delayed 81 mg PO DAILY 01/14/18 11/06/20 History release venlafaxine 75 mg capsule,extended 75 mg PO BEDTIME #90 cap 01/14/19 11/06/20 History release 24 hr clonazepam 0.5 mg tablet 1.5 mg PO BEDTIME #90 tab 03/10/19 11/06/20 History lorazepam 1 mg tablet See Rx Instructions PO DAILY PRN 03/10/19 11/06/20 History tab trihexyphenidyl 2 mg tablet 2 mg PO TID tab 03/10/19 11/06/20 History carbidopa 10 mg-levodopa 100 mg 5 tab PO DIRECTED tab 06/03/19 11/06/20 History tablet metoprolol succinate 25 mg 25 mg PO DAILY #90 tab 11/11/19 11/06/20 Rx tablet,extended release 24 hr oxycodone-acetaminophen 5 mg-325 1 tab PO Q4HP PRN #90 tab 09/07/20 11/06/20 Rx mg tablet fluticasone propion-salmeterol 2 inh INHALATION DAILY 11/06/20 11/06/20 History [Advair Diskus] methylphenidate HCl 5 mg PO BID 11/06/20 11/06/20 History trihexyphenidyl 2 mg PO PRN PRN 11/06/20 11/06/20 History Allergies Allergy/AdvReac Type Severity Reaction Status Date / Time levofloxacin Allergy Severe Hives, Verified 02/01/20 15:20 Water Blisters, Small Fever fentanyl Allergy Unknown Verified 02/01/20 15:20 hydromorphone Allergy Unknown Verified 02/01/20 15:20 Penicillins Allergy Unknown Verified 02/01/20 15:20 Exam Vital Signs (past 8 hours): - 11/06/20 23:46 11/07/20 05:16 11/07/20 05:29 Temperature 97.8 F 98.2 F Pulse Rate 75 73 Respiratory Rate 16 Blood Pressure 96/46 L 136/58 L Pulse Oximetry 95 96 Oxygen Delivery Method Room Air Oxygen Flow Rate 0.5 Narrative Exam Narrative: Neurovascular intact in the right lower extremity. No skin breaks over the hip. The hip is held in a shortened and externally rotated position. Objective Labs Result Diagrams: 11/06/20 20:15 11/06/20 20:15 Labs: Laboratory Results - last 24 hr 11/06/20 11/06/20 11/06/20 19:40 20:15 20:15 WBC 5.1 RBC 3.47 L Hgb 11.0 L Hct 32.4 L MCV 93.5 MCH 31.6 MCHC 33.9 RDW 13.2 Plt Count 166 Neut % (Auto) 60.5 Lymph % (Auto) 29.8 [place] % (Auto) 6.0 Eos % (Auto) 2.7 Baso % (Auto) 1.0 Neut # (Auto) 3100 Lymph # (Auto) 1500 [place] # (Auto) 300 Eos # (Auto) 100 Baso # (Auto) 0 Sodium 138 Potassium 4.5 Chloride 105 Carbon Dioxide 27 BUN 19 H Creatinine 0.65 Estimated GFR > 60.0 BUN/Creatinine Ratio 29.2 H Glucose 106 Calcium 8.3 L SARS-CoV-2 (PCR) Negative Blood Type Antibody Screen 11/06/20 20:15 WBC RBC Hgb Hct MCV MCH MCHC RDW Plt Count Neut % (Auto) Lymph % (Auto) [place] % (Auto) Eos % (Auto) Baso % (Auto) Neut # (Auto) Lymph # (Auto) [place] # (Auto) Eos # (Auto) Baso # (Auto) Sodium Potassium Chloride Carbon Dioxide BUN Creatinine Estimated GFR BUN/Creatinine Ratio Glucose Calcium SARS-CoV-2 (PCR) Blood Type A Positive Antibody Screen Negative Assessment & Plan Assessment & Plan narrative: Patient is a 75-year-old female with history of Parkinson's disease. She has had previous falls resulting in a hemiarthroplasty on the left side. Regarding her right hip she had a ground level fall yesterday sustaining a comminuted intertrochanteric femur fracture. I had a long dis cussion with patient regarding her injury pattern as well as her imaging findings. At this point she will need surgical intervention for stabilization of this hip. My plan would be for a short versus long cephalomedullary nail for the right hip. I appreciate medicine's help in optimizing her for the OR this evening. - NPO - OCTOR this afternoon - Plan for short vs long CMN right hip Time Spent With Patient Time with patient: less than 15 minutes
--- NOTE | 2020-11-07 08:07 | PM.HP.1 ---
History of Present Illness History of Present Illness Date Patient Seen: 11/07/20 Time Patient Seen: 07:45 Chief complaint: Fall/ rt leg injury Narrative: Pt is a 75 year old woman with Parkinson's disease, asthma, osteoporosis, depression, and history of left hip hemiarthroplasty due to fracture who presented after fall at home. The pt reports that she stood from a chair, turned and took a few steps, felt like the room was spinning slightly, and fell to the ground. She immediately had right groin pain. EMS was contacted, and she was brought to the ED for evaluation. The pt denies any associated chest pain, SOB. She had been feeling well prior to the incident. As per the pts , she at baseline has extremely limited mobility. She is working with rehab, and they continue to encourage her to move, but she doesn't listen to instructions well to keep her from moving independently. This morning, the pt reports that her pain is well controlled. She continues to deny any chest pain or SOB. Patient History Medical History Aspiration, chronic pulmonary Dysphagia, neurologic Mild intermittent asthma without complication (01/18/11) Osteoporosis (01/18/11) Parkinson's disease (01/18/11) Surgical History History of surgery Status post hysterectomy with oophorectomy Family & Social History Social History: household members spouse Prior Living Arrangements House Safety & Behavioral: Feels Safe in Current Yes Environment Been Physically Hurt or No Threatened By a Person Suicidal Ideation Description None Suicide Plan Description No Plan Tobacco & Substance use: Smoking Status Never smoker alcohol intake never Substance Use Type does not use Meds Home Medications and Allergies Home Medications Medication Instructions Recorded Confirmed Type donepezil [Aricept] 10 mg PO QDAY #0 05/05/12 11/06/20 History Disabled Parking #1 each 01/08/18 11/06/20 Rx aspirin 81 mg tablet,delayed 81 mg PO DAILY 01/14/18 11/06/20 History release venlafaxine 75 mg capsule,extended 75 mg PO BEDTIME #90 cap 01/14/19 11/06/20 History release 24 hr clonazepam 0.5 mg tablet 1.5 mg PO BEDTIME #90 tab 03/10/19 11/06/20 History lorazepam 1 mg tablet See Rx Instructions PO DAILY PRN 03/10/19 11/06/20 History tab trihexyphenidyl 2 mg tablet 2 mg PO TID tab 03/10/19 11/06/20 History carbidopa 10 mg-levodopa 100 mg 5 tab PO DIRECTED tab 06/03/19 11/06/20 History tablet metoprolol succinate 25 mg 25 mg PO DAILY #90 tab 11/11/19 11/06/20 Rx tablet,extended release 24 hr oxycodone-acetaminophen 5 mg-325 1 tab PO Q4HP PRN #90 tab 09/07/20 11/06/20 Rx mg tablet fluticasone propion-salmeterol 2 inh INHALATION DAILY 11/06/20 11/06/20 History [Advair Diskus] methylphenidate HCl 5 mg PO BID 11/06/20 11/06/20 History trihexyphenidyl 2 mg PO PRN PRN 11/06/20 11/06/20 History Allergies Allergy/AdvReac Type Severity Reaction Status Date / Time levofloxacin Allergy Severe Hives, Verified 02/01/20 15:20 Water Blisters, Small Fever fentanyl Allergy Unknown Verified 02/01/20 15:20 hydromorphone Allergy Unknown Verified 02/01/20 15:20 Penicillins Allergy Unknown Verified 02/01/20 15:20 Exam Vital Signs (past 8 hours): - 11/07/20 05:16 11/07/20 05:29 Temperature 98.2 F Pulse Rate 73 Blood Pressure 136/58 L Pulse Oximetry 96 Oxygen Delivery Method Room Air Oxygen Flow Rate 0.5 Narrative Exam Narrative: GEN - alert, cooperative and no distress, slow speech HEENT - normocephalic and atraumatic, sclera white, moist mucus membranes NECK - FROM, no adenopathy HEART - RRR, S1, S2 normal, grade 4/6 systolic murmur LUNGS - symmetric chest rise, no accessory muscles, clear to auscultation bilaterally CHEST - DBS battery packs palpable ABD - flat, nondistended, normal bowel sounds, soft, nontender and no hepatomegaly, splenomegaly or masses EXT - no cyanosis, clubbing or edema SKIN - no rashes or suspicious lesions NEURO - alert and and oriented to person, place, and situation Objective Labs Result Diagrams: 11/06/20 20:15 11/06/20 20:15 Labs: Laboratory Results - last 24 hr 11/06/20 11/06/20 11/06/20 19:40 20:15 20:15 WBC 5.1 RBC 3.47 L Hgb 11.0 L Hct 32.4 L MCV 93.5 MCH 31.6 MCHC 33.9 RDW 13.2 Plt Count 166 Neut % (Auto) 60.5 Lymph % (Auto) 29.8 [place] % (Auto) 6.0 Eos % (Auto) 2.7 Baso % (Auto) 1.0 Neut # (Auto) 3100 Lymph # (Auto) 1500 [place] # (Auto) 300 Eos # (Auto) 100 Baso # (Auto) 0 Sodium 138 Potassium 4.5 Chloride 105 Carbon Dioxide 27 BUN 19 H Creatinine 0.65 Estimated GFR > 60.0 BUN/Creatinine Ratio 29.2 H Glucose 106 Calcium 8.3 L SARS-CoV-2 (PCR) Negative Blood Type Antibody Screen 11/06/20 20:15 WBC RBC Hgb Hct MCV MCH MCHC RDW Plt Count Neut % (Auto) Lymph % (Auto) [place] % (Auto) Eos % (Auto) Baso % (Auto) Neut # (Auto) Lymph # (Auto) [place] # (Auto) Eos # (Auto) Baso # (Auto) Sodium Potassium Chloride Carbon Dioxide BUN Creatinine Estimated GFR BUN/Creatinine Ratio Glucose Calcium SARS-CoV-2 (PCR) Blood Type A Positive Antibody Screen Negative Assessment & Plan Assessment & Plan narrative: Pt is a 75 year old woman with Parkinson's disease, asthma, osteoporosis, depression, HTN, and history of left hip hemiarthroplasty due to fracture who presented after mechanical ground-level fall at home. Found to have right intertrochanteric fracture. 1) Right hip fracture: Pain adequately controlled - Ortho consulted, appreciate recommendations and care - Plan for surgery this afternoon - Continue Morphine PRN - NPO until surgery 2) Parkinson's disease: - Continue home Carbidopa-Levodopa, Donepezil, Methylphenidate, Trihexyphenidyl - Continue Clonazepam at night to help with spasticity 3) Depression/Anxiety: - Continue home Venlafaxine - Continue Lorazepam PRN 4) HTN: - Continue home Metoprolol FEN: NPO pending surgery. Hold home medications until then. DVT PPx: SCDs due to pending surgery Code: Pts reports limited intervention but would like all attempts at resuscitation made if the pt codes while in the OR. Therefore for now full code status entered. Dispo: Pending surgery, working with PT/OT. Will likely need rehab after surgery.
[2020-11-07] MEDS: BUDESONIDE 0.5 MG/2 ML NEB INH ×2 (09:00→21:40)
[2020-11-07] MEDS: ALBUTEROL 2.5 MG/3 ML NEB (ADULT) INH ×3 (09:00→21:40)
[2020-11-07] MEDS: SODIUM CHLORIDE 0.9% 1,000 ML 100 ML IV (09:38)
[2020-11-07] MEDS: CARBIDOPA-LEVODOPA 10/100 TABLET 2 EACH PO (11:10)
[2020-11-07] MEDS: TRIHEXYPHENIDYL 2 MG 2 EACH PO ×2 (11:10→21:21)
[2020-11-07] MEDS: LORazepam 1 MG TABLET PO (11:19)
--- NOTE | 2020-11-07 11:58 | PC.NURSE ---
Day shift: This pattern chart writer talked to Dr Chin and per ok to give Pt her PO meds. Gave per MAR and Pt tolerated well. Plan is for surgery today at approx 1700. Pt and MD aware of this time.
--- NOTE | 2020-11-07 13:37 | CM.DANOTE ---
Addendum entered by NADIRA Cameron 11/07/20 14:34: ADD: Per [facility], they can likely accept pt when stable for d/c but they can still not do nebulizers at d/c due to COVID restrictions and pt would need to be clear and without confusion/behaviors post surg (which pt does not have a hx of this). [facility] was able to verify her COVID vaccination record already as well. BF Original Note: Patient is a 75 year old female who was admitted on 11/06/20 for GLF/injury. Pt has MCR and AARP for insurance and her PCP is Dr. Hudson Mcmanus. EMR was reviewed. Per MD, pt with hx of Parkinsons and limited mobility and with GLF had Right Hip fx. Per Ortho Consult, recommending hip surgery this evening and pt NPO for surgery around 1700 today. SW met bedside with pt and spouse and explained role and pt quite drowsy from her Parkinsons meds and pain medication. Spouse confirms that they still live at home in [place] and spouse is pt's primary caregiver. Pt with limited mobility and has been working with PT but pt still a fall risk at home. Pt's DPOA is her spouse and no other local family at this time. Pt now has a CG through [employer] but only approved for 3 hours a week, but this is when spouse will do his errands and shopping. Pt utilizes the chair lift to get up the stairs in their home and has DME and grab bars but spouse feels pt will not be able to safely d/c directly home after surgery and requesting SNF prior to return home. Pt has hx of SNF at [facility] a few years ago after GLF and pt broke her Left hip. SW provided the SNF Choice list and preference is still [facility] for SNF rehab. SW called [facility] and left ms with admissions regarding new referral and request for review. PASRR completed in anticipation of SNF at d/c. Plan: SW to follow for [facility] review to determine if they can accept after pt's surgery with Ortho this evening and medically stable to d/c the hospital. NADIRA Cameron Discharge Planning/Care Management CM Discharge Assessment Start: 11/07/20 13:32 Freq: Status: Active Protocol: Document 11/07/20 13:32 BF (Rec: 11/07/20 13:37 BF [id number]) Discharge Planning Assessment Assigned Smoke Jumper NADIRA Devries DPOA/Assigned Designee Name spouse Oh Rubio Contact Information [phone] Advance Directives? Yes Advance Directives on File Yes History Provided By Patient,Significant Other, Medical Record Has Patient been admitted in last 30 No days? Prior Living Arrangements House Household Members spouse Type of transporation used prior to Relies on Others admit Independent with ADL's No Is patient alert and oriented? Yes: mostly Needs Assistance With Bathing,Meal Prep,Toileting, Managing Medications,Home Chores / Shopping Caregiver for Another No Patient/Family Preference [facility] Facility Barriers to Discharge No Discharge Plan Correction Facility Transportation Arrangement Facility van pending hip surgery Referrals Initiated Correction If patient plan is SNF: Has PASSR been Yes completed? Medicare Choice List Provided Yes SNF/HH Preference [facility] Has Agency SNF been contacted Yes Whiteboard Updated in Patient Room with Yes name and ext. # of Smoke Jumper Review Status In Process Please Provide Date Initial DC 11/07/20 Assessment Was Performed Next Review Type Continued Stay Review
--- NOTE | 2020-11-07 14:19 | PC.NURSE ---
Day shift: Pt's spouse Oh here at approx 1300. In room for support. He stated that it is very important that Pt take her Klonapin this evening and every evening. Pain well controlled with IV morphine per JUL. Applied chap stick to Pt's lips and some moisture from green sponge stick as well. IV fluids running per JUL. Pt has been NPO except for PO Parkinsons meds this AM (time is documented in JUL). Call light in reach. Pt can make needs known. Blanco patent w/ approx 150mls output (Dr Zuniga RN informed on telephone). No changes made at this time (1430).
[2020-11-07] MEDS: CARBIDOPA-LEVODOPA 10/100 TABLET 1 EACH PO (15:22)
[2020-11-07] MEDS: LACTATED RINGERS 1,000 ML 42 ML IV (16:57)
--- NOTE | 2020-11-07 17:17 | SUR.HOLD ---
Block start time [1710] . Monitoring initiated and maintained throughout procedure. Oxygen and medications given per anesthesiologist instructions. Patient remained stable throughout procedure, no adverse reactions noted. Block end time [1718.
[2020-11-07] MEDS: CEFAZOLIN 1 GM VIAL 2 GM IV ×2 (17:50→21:21)
[2020-11-07] MEDS: BUPIVACAINE 0.5% (PF) VIAL 30 ML INJ (18:14)
[2020-11-07] MEDS: EPINEPHrine 1 MG/ML IV (18:15)
--- NOTE | 2020-11-07 18:17 | SUR.OPER ---
Supine on padded [place] table with operative leg secured in padded positioning boot and suspended in positioning spar, operative leg in traction per surgeon. Nonoperative leg placed in padded leg andersen by surgeon. Head on one pillow. Arm on non-operative side secured on padded armboard <90 degrees abduction. Arm on operative side padded and resting across chest then secured with tape over sheet. Padded perineal post in place per surgeon.
--- NOTE | 2020-11-07 19:21 | PM.OP.1 ---
Operative Date/Time/Diagnoses Date of procedure: 11/07/20 Time of procedure: 19:21 Pre-op diagnosis: right comminuted interotrch femur fracture Post-op diagnosis: same Procedure & Clinicians Procedure: Closed reduction placement a long cephalomedullary nail Same procedure as scheduled: Yes Indications: Comminuted displaced intertrochanteric femur fracture with distal extension Surgeon: Coleman Amaya Click Yes if Unassisted: Yes Anesthesia Type: General Operative Notes Findings: Displaced comminuted intertrochanteric fracture with displacement of the lesser trochanter as well as distal extension of the proximal fracture line which was unicortical. Closure Type: primary Specimen(s): none sent Prosthetic devices, grafts, tissues, transplants, or devices: Oneal and nephew intertan 11.5 mm x 40 cm Intertan 100 mm lag screw 95 mm compression screw 40 mm x 5 mm distal interlocking bolt Estimated Blood Loss (mL): 200 Procedure in detail: Patient was met in the preoperative holding area where the site and side of surgery were marked by . Informed consent reviewed and signed. Informed consent was signed by her . Patient has Parkinson's disease. Patient although did not time for her own consent also agreed with the procedure. Patient was brought back in the operating room where she was induced under general anesthesia. She was then transferred onto the [place] table. The right foot was placed in a well-padded [place] table boots the left leg was placed in a well leg andersen. At this point fluoroscopy was brought in for our reduction reduction was mainly traction as well as abduction of the leg. The right lower extremity then prepped and draped in normal sterile fashion. A surgical time-out was performed verifying the site and side of surgery as well as in the patient. A 5 cm long incision about 10 cm proximal to the tip of the greater trochanter was made the skin using 10. Blade. [place] scissors were then used to spread down to tip of the greater trochanter. At this point a 3rd tip wire was placed on the tip of the greater trochanter and tangential views were obtained with fluoroscopy indicating proper placement this was then malleted into place and then I then used the opening Reamer to swallow the 30 tip guidewire down the level of the lesser troch over the lesser troch would have been if it was not displaced. The threaded tip guidewire and the opening Reamer were then removed and a ball-tipped guidewire was placed down to the level of the knee. I then began reaming with a 10 mm Reamer up sizing by 1 until I got to a 13. I then measured for length which was approximately 42 cm in length and then selected a 40 cm nail. Nail was then placed under fluoroscopic guidance for depth selection. The aiming devices placed on the jig. A skin incision was made with a 10. Blade and blunt dissection was carried down to the lateral femur. A threaded tip guidewire was then used through the Justin and drilled into the head. This was centered on AP and lateral views. This measured to a depth of 100 mm. I then drilled the compression screw to a depth of 95 mm placed the anti rotation bar and then drilled the compression screw to 100 mm of depth. The compression screw was then placed followed by placement of the compression screw. I did allow the fracture to compress. I then turned my attention distally using perfect lower [place]wh[place] technique placed the distal interlocking bolt which was 40 mm in length. This point traction was removed as well as rotation control final fluoroscopic images were obtained of the hip both AP and lateral as well as the distal portion of the nail in AP and lateral views. The surgical sites were then thoroughly irrigated with normal saline and local anesthetic was then infiltrated. The fascial layers were closed using 1. Vicryl followed by 2 Vicryl in the subcutaneous layer followed by star on skin and occlusive dressings. Complications: none Post-operative Condition: stable Disposition: PACU Plan for aftercare: 24 hours post-op abx, partial weight bearing (50%) on RLE
[2020-11-07] MEDS: LACTATED RINGERS 1,000 ML 100 ML IV ×2 (19:35→20:55)
--- NOTE | 2020-11-07 20:38 | SUR.PHASEI ---
Report called to Stacy. Pt continued to have soft VS through out recovery remaining +/- 20mmhg from baseline. She was able to respond to questions by nodding her head and responded appropriately when asked about pain. Pt was transported to her room on 2L O2. was at BS. She wiggled her toes upon command for this nurse, and Stacy. Pt was in stable condition upon departure.
[2020-11-07] MEDS: ACETAMINOPHEN 325 MG TABLET 975 MG PO (21:20)
[2020-11-07] MEDS: clonazePAM 0.5 MG TABLET 1.5 MG PO (21:20)
[2020-11-07] MEDS: DONEPEZIL 5 MG TABLET 10 MG PO (21:20)
[2020-11-07] MEDS: ASPIRIN EC 81 MG TABLET PO (21:20)
[2020-11-07] MEDS: METHYLPHENIDATE 5 MG TABLET PO (21:20)
--- NOTE | 2020-11-07 21:35 | PC.NURSE ---
Patient arrived back on unit from surgery at 2030. Dressings c/d/i. Pedal pulses palpable. Patient unable to swallow well, so crushed meds and gave with apple sauce and small sips of water. HOB left up for 30 minutes after giving meds and water.
[2020-11-08] VITALS (15 sets, daily range): BP systolic 94–121; BP diastolic 48–63; PULSE 16–99; RESP 14–20; TEMP 36.3–37.1; O2SAT 90–99
--- NOTE | 2020-11-08 02:35 | PC.NURSE ---
Patient on 2L NC with O2 Sat 99-100%. At 0130, O2 was titrated down to 1L. At 0227 O2 remains at 99%. Will continue to monitor and titrate.
[2020-11-08] MEDS: CEFAZOLIN 1 GM VIAL 2 GM IV (04:28)
[2020-11-08 05:26] LABS: Mean Corpuscular HGB Conc 32.9 % (30-36); Mean Corpuscular Hemoglobin 31.5 PG (26-34); Mean Corpuscular Volume 95.5 fL (80-100); Platelet Count 106 X10^3/uL (150-400); Red Blood Cell Count 2.17 X10^6/uL (4.0-5.2); Red Cell Distribution Width 13.3 % (11.6-14.8); White Blood Cell Count 6.7 X10^3/uL (4.5-11.0)
[2020-11-08 05:32] LABS: Hematocrit 20.7 % (36-46); Hemoglobin 6.8 g/dL (12.0-16.0)
[2020-11-08] MEDS: OXYCODONE IR 5 MG TABLET PO ×3 (06:38→15:59)
--- NOTE | 2020-11-08 08:20 | PM.PN.1 ---
Subjective Subjective Date Patient Seen: 11/08/20 Time Patient Seen: 08:00 Interval history: The pt reports that overall she is feeling well this morning. She denies any significant pain in her hip. She has not tried to move it yet, and isn't sure if she should or not. She reports having very minimal appetite this morning. As per nursing, they have noticed gargling when the pt is swallowing and some difficulty clearing saliva. They request a speech referral for swallow eval today. Contacted early this morning due to a critically low H/H of 6.8/20.7. Pre-operative H/H was 11.0/32.4. EBL from surgery was 200cc. Exam Vital Signs (past 8 hours): - 11/08/20 01:30 11/08/20 01:35 11/08/20 04:28 Temperature 97.4 F L 97.5 F L Pulse Rate 82 81 78 Respiratory Rate 18 18 Blood Pressure 98/49 L 95/48 L 94/50 L Pulse Oximetry 98 99 11/08/20 06:32 11/08/20 06:47 Temperature 98.4 F 98.5 F Pulse Rate 84 84 Respiratory Rate 14 14 Blood Pressure 110/53 L 111/54 L Pulse Oximetry Oxygen Delivery Method Nasal Cannula Oxygen Flow Rate 1 Narrative Exam Narrative: GEN - alert, cooperative and no distress, slow speech HEART - RRR, S1, S2 normal, grade 4/6 systolic murmur LUNGS - symmetric chest rise, no accessory muscles, clear to auscultation bilaterally CHEST - DBS battery packs palpable ABD - flat, nondistended, normal bowel sounds, soft, nontender and no hepatomegaly, splenomegaly or masses EXT - no cyanosis, clubbing or edema; dressings c/d/i Objective Labs Result Diagrams: 11/08/20 05:05 11/06/20 20:15 Labs: Laboratory Results - last 24 hr 11/06/20 11/08/20 20:15 05:05 WBC 6.7 RBC 2.17 L Hgb 6.8 L* Hct 20.7 L* MCV 95.5 MCH 31.5 MCHC 32.9 RDW 13.3 Plt Count 106 L Blood Type A Positive Antibody Screen Negative Crossmatch See Detail [facility] Medical History Aspiration, chronic pulmonary Dysphagia, neurologic Mild intermittent asthma without complication (01/18/11) Osteoporosis (01/18/11) Parkinson's disease (01/18/11) Surgical History History of surgery Status post hysterectomy with oophorectomy Social History household members: spouse Smoking Status: Never smoker alcohol intake: never Assessment & Plan Assessment & Plan narrative: Pt is a 75 year old woman with Parkinson's disease, asthma, osteoporosis, depression, HTN, and history of left hip hemiarthroplasty due to fracture who presented after mechanical ground-level fall at home. Found to have right intertrochanteric fracture. 1) Right hip fracture: POD #1 s/p closed reduction placement a long cephalomedullary nail. Pain adequately controlled - Ortho consulted, appreciate recommendations and care - Continue Dilaudid and Oxycodone PRN for pain 2) Acute blood loss anemia on chronic anemia: - Receiving 1 unit PRBCs now - No recent echo on file. Will cautiously work to correct. Repeat H/H after first unit. 2) Parkinson's disease: - Continue home Carbidopa-Levodopa, Donepezil, Methylphenidate, Trihexyphenidyl - Continue Clonazepam at night to help with spasticity 3) Depression/Anxiety: - Continue home Venlafaxine - Continue Lorazepam PRN 4) HTN: - Continue home Metoprolol FEN: General diet. Speech therapy to complete swallow eval. DVT PPx: SCDs Code: Full code for now at 's request Dispo: Pending continued recovery, working with PT/OT. Will likely need rehab after surgery.
--- NOTE | 2020-11-08 08:39 | PC.NURSE ---
Addendum entered by Adri Flannery R.N. 11/08/20 13:04: Patients crit up to 23. is aware and does not want to order anymore blood at this time. out to talk to this RN and states that patient is uncomfortable. okayed giving patient her medications for Parkinsons. Her also asked for something for pain. Explained to him that this makes RN slightly uncomfortable as she is a aspiration risk and could choke. She has been coughing prior when working with speech therapy who has made patient NPO. The pain medication also made patient groggy this morning and could also contribute to patient not swallowing well as she is not totally awake. Just gave patient her noon dose of Parkinsons medication and 5mg of po oxycodone.. She was able to swallow and take a small amount of water, the oxycodone has been effective for patients discomfort. Explained to patients Oh that we do not want patient to aspirate, which he does understand. He is very caring and helpful towards his and just wants the best for her. Addendum entered by Adri Flannery R.N. 11/08/20 10:06: Patients speech evaluation was not successful. Patient NPO at this time. She was unable to swallow oatmeal well as she becomes phlegmy and had to be suctioned. They are going to come back again this afternoon and see how she does. Original Note: Assess- Patient is not swallowing well when she is eating, unable to swallow first bite of food before even starting to chew. Dr. Chin is aware of this and is going to put in an order for speech evaluation. Patient has 2 aquacel dressing to her r.upper and mid hip that both have small amounts of dried drainage to area. Patient was given pain medication around 0530 and denies discomfort. She has a dx of Parkinsons and she does have two stimulators on each side of her chest. CMS wnl and ppx2.
--- NOTE | 2020-11-08 09:07 | P.PN_ITS ---
Subjective Subjective Date Patient Seen: 11/08/20 Time Patient Seen: 09:07 Interval history: Patient reports her pain is mild. Denies fever or chills. No nausea or vomiting. She reports she is not having any shortness of breath or chest pain. Exam Vital Signs (past 8 hours): - 11/08/20 01:30 11/08/20 01:35 11/08/20 04:28 Temperature 97.4 F L 97.5 F L Pulse Rate 82 81 78 Respiratory Rate 18 18 Blood Pressure 98/49 L 95/48 L 94/50 L Pulse Oximetry 98 99 11/08/20 06:32 11/08/20 06:47 Temperature 98.4 F 98.5 F Pulse Rate 84 84 Respiratory Rate 14 14 Blood Pressure 110/53 L 111/54 L Pulse Oximetry Oxygen Delivery Method Nasal Cannula Oxygen Flow Rate 1 Narrative Exam Narrative: 75-year-old female resting comfortably in bed in no apparent distress. Right hip dressing is Clean, dry, intact.. Both legs are warm and dry. Motor functions sensation intact bilateral lower extremities. Objective Labs Result Diagrams: 11/08/20 05:05 11/06/20 20:15 Labs: Laboratory Results - last 24 hr 11/06/20 11/08/20 20:15 05:05 WBC 6.7 RBC 2.17 L Hgb 6.8 L* Hct 20.7 L* MCV 95.5 MCH 31.5 MCHC 32.9 RDW 13.3 Plt Count 106 L Blood Type A Positive Antibody Screen Negative Crossmatch See Detail [facility] Medical History Aspiration, chronic pulmonary Dysphagia, neurologic Mild intermittent asthma without complication (01/18/11) Osteoporosis (01/18/11) Parkinson's disease (01/18/11) Surgical History History of surgery Status post hysterectomy with oophorectomy Social History household members: spouse Smoking Status: Never smoker alcohol intake: never Assessment & Plan Post-op Postoperative Procedures: Procedures Operation Date: 11/07/20 17:00 Actual Procedures Side Surgeon p Cephalomedullary Nailing Femur Right Coleman Amaya MD Postop day 1 status post close reduction placement of a long cephalomedullary nail for comminuted displaced intertrochanteric femur fracture with distal extension. Partial weight-bearing, 50%, right lower extremity Mobilize with physical therapy. Hemoglobin 6.8 and hematocrit 20.7 this morning. Patient currently receiving 1 unit packed red blood cells Internal medicine managing acute blood loss anemia on chronic anemia, receiving 1 unit packed red blood cells now with repeat H&H after 1st unit. Internal medicine also managing Parkinson's disease, depression/anxiety, hypertension Internal Medicine has recommended speech therapy to complete swallow eval. SCDs and aspirin for DVT prophylaxis
[2020-11-08] MEDS: CARBIDOPA-LEVODOPA 10/100 TABLET 2 EACH PO ×2 (09:10→12:54)
[2020-11-08] MEDS: TRIHEXYPHENIDYL 2 MG 2 EACH PO ×3 (09:10→21:57)
[2020-11-08] MEDS: ALBUTEROL 2.5 MG/3 ML NEB (ADULT) INH ×3 (09:11→21:34)
[2020-11-08] MEDS: BUDESONIDE 0.5 MG/2 ML NEB INH ×2 (09:11→21:34)
--- NOTE | 2020-11-08 10:28 | ST.IPCSEOM ---
Visit Care Team Role Provider Type Coleman Amaya MD Other Providers Physician Specialty: Orthopedic Surgery Address: [address] [place] [address], [place], [address] Email: [email or web address] Emergency Provider Physician Referring Provider Specialty: Emergency Medicine Address: [address] [place] [address], [address] Email: [email or web address] MD Attending Provider Physician Primary Care Provider Specialty: Internal Medicine Address: [address] [place] [address], [address], [place], [address] Email: [email or web address] Bailey Chin MD Admit Provider Physician Specialty: Family Practice Address: [address] [place] [address], [facility], [place], [address] Email: [email or web address] Current Diagnoses Displaced intertrochanteric fracture of right femur, initial encounter for closed fracture (11/06/20) Past Medical History (Last Reviewed 11/08/20 @ 09:08 by Bhargav Cornejo PA-C) Aspiration, chronic pulmonary (Medical) Due to neurologic causes Dysphagia, neurologic (Medical) Mild intermittent asthma without complication (Medical 01/18/11) Osteoporosis (Medical 01/18/11) Parkinson's disease (Medical 01/18/11) Speech-Language Pathology Swallow Evaluation SYSTEMS NAVIGATOR Clinical Swallow Evaluation Start: 11/08/20 10:09 Freq: Status: Active Protocol: Document 11/08/20 10:10 LYRICK (Rec: 11/08/20 10:27 MYRNA [id number]) Clinical Swallow Evaluation Session Time Visit Start Time 09:30 Visit Stop Time 10:10 Total Visit Minutes 40 Referral Referring Provider Bailey Chin MD Setting Assessment Location Acute Care Visit Type Note Type Initial evaluation Next Note Type Next Note Type Re-evaluation Patient Information Identification Type Name,Date of History Pt is a 75 year old woman with Parkinson's disease, asthma, osteoporosis, depression, and history of left hip hemiarthroplasty due to fracture who presented after fall at home. The pt reports that she stood from a chair, turned and took a few steps, felt like the room was spinning slightly, and fell to the ground. Nursing reported that when she was trying to eat breakfast, the foods just sat in her mouth unable to chew or swallow. Subjective Observations Pt was up in her bed with a respiratory treatment. Nursing indicated that pt had taken her Parkinson's medication earlier. Reported by Patient Other Symptoms Choking,Coughing,Difficulty swallowing liquids,Difficulty swallowing solids Current Diet Regular,Thin liquids Baseline Feeding Method Dependent for feeding Objective Assessment Mental Status Alert,Responsive,Cooperative Dentition Dentures or partials present Lip Function Moderate impairment Pucker Reduced range of motion, Reduced strength Alternating Pucker/Lip Retraction Reduced range of motion, Incoordination Tongue Function Moderate impairment Tongue Protrusion Deviates to the right,Reduced range of motion,Reduced strength Tongue Lateralization Reduced range of motion Food and Liquid Trials Position During Assessment Upright (90 degrees) Liquids Trialed Ice chips,Thin,[place] Solids Trialed Puree,Dysphagia Mechanical, Dysphagia Advanced Administration Type Tea spoon,Dependent feeding Oral Impairment Severely impaired Oral Phase Comments Pt's OME noted significantly reduced ROM, strength and coordination. Pt unable to chew eggs with oral residue remaining in mouth. Oatmeal trial was immediately followed by choking, wet, audible swallows requiring suctioning. Thin liquids were difficult with pt coughing and had wet voicing. Trial nectar thick liquids were trialed with pt presenting with an audible swallow (indicating poor coordination of swallow anatomy) and immediate wet voicing and cough. Pharyngeal Impairment Severely impaired Pharyngeal Phase Comments Audible swallow (indicating poor coordination of swallow anatomy) and immediate wet voicing and cough accross all trials. Pt needed to be suctioned x1 secondary to choking Fatigue/Endurance Mild fatigue Strategies Attempted Chin tuck,Effortful swallow Response/Comments Pt had difficulty with effortful swallow. Unsure of chin tuck efficacy Findings Swallowing Function Oropharyngeal phase dysphagia Severity of Swallow Impairment Severely impaired Contributing Factors to Swallow Reduced oral strength/ Impairment coordination/sensation, Mastication inefficiency, Impaired oral-pharyngeal transport,Impaired velopharyngeal closure/ coordination,Delayed swallow initiation,Reduced laryngeal excursion,Impaired airway protection,Excessive pharyngeal residue Prognosis Guarded Based on History of aspiration/ aspiration pneumonia, Comorbidities,Duration of symptoms/severity Impact on Safety and Functioning Risk for inadequate nutrition/ hydration Recommendations Instrumental Assessment No Swallowing Treatment Yes Frequency 1-2x/day Duration while inpatient Recommended Solids Nothing by Mouth Recommended Liquids Nothing by Mouth Medication Recommendations As Tolerated Education Patient/Caregiver Education Described results of evaluation,Patient expressed understanding of evaluation, Patient expressed understanding of safety precautions,Patient expressed understanding of feeding recommendations,Family/ caregivers require further education/training Goals Short-term Goals Pt will safely tolerate highest level of PO intake without overt s/sx aspiration.
[2020-11-08] MEDS: LACTATED RINGERS 1,000 ML 100 ML IV ×2 (10:45→21:19)
[2020-11-08 11:28] LABS: Hematocrit 23.8 % (36-46)
--- NOTE | 2020-11-08 11:36 | CM.DPC ---
DCP Cont: Per Ortho, pt seemed to tolerate surgery well late last night and currently stable. Per Dr. Chin and RN, pt has very low H&H today and receiving blood and ST ordered due to pt's coughing and difficulty swallowing. PT/OT ordered and pending this morning due to low H&H and waiting until after pt gets transfusion. Patient will be Medicare eligible for SNF coverage by tomorrow Th11/09/20 if medically stable although pt has significant medical comorbidities and will depend on if she has stabilized. [facility] following and can accept if pt does not need nebulizer tx and is alert and able to participate. Plan: SW to follow closely after PT/OT/ST recommendations and ongoing coordination with spouse and [facility]. NADIRA Cameron
--- NOTE | 2020-11-08 11:50 | PT-IP ANOTE ---
pt with Hgb of 6.8 and Hct of 20.7. talked with nurse and pt currently receiving transfusion. Will hold PT eval until post transfusion H&H result. will f/u.
--- NOTE | 2020-11-08 14:20 | PT.IIE ---
Current Diagnoses Displaced intertrochanteric fracture of right femur, initial encounter for closed fracture (11/06/20) Surgery Performed Operation Date: 11/07/20 17:00 Actual Procedures p Cephalomedullary Nailing Femur(Right) - Coleman Amaya MD Surgical History (Last Reviewed 11/08/20 @ 09:08 by Bhargav Cornejo PA-C) History of surgery Status post hysterectomy with oophorectomy Medical History (Last Reviewed 11/08/20 @ 09:08 by Bhargav Cornejo PA-C) Aspiration, chronic pulmonary Dysphagia, neurologic Mild intermittent asthma without complication (01/18/11) Osteoporosis (01/18/11) Parkinson's disease (01/18/11) Physical Therapy Inpatient Evaluation/Re-Eval M1 PT/OT-IP Prior Functional Status Start: 11/08/20 16:18 Freq: NEEDED Status: Active Protocol: Document 11/08/20 14:20 AB (Rec: 11/08/20 16:48 AB [id number]) Medical Review Prior Functional Status Medical History Reviewed Yes Communication pt able to answer questions inconsistently and has decrease voice volume/ hypophonia ; pt also requires cues to make eye contact Mobility and Gait pt stated that her spouse assists her with all tasks and ambulates using 4WW Social History Household Members spouse Living Arrangements House Number of Floors (Floors) One Floor Home Environment Ramp Home Equipment Four Wheel Walker,Manual Wheelchair Additional Social History Comment limited home set up info: pt unable to give home set up info; above info obtained from EMR previous admissions M2 PT-IP Current Condition Start: 11/08/20 16:18 Freq: NEEDED Status: Active Protocol: Document 11/08/20 14:20 AB (Rec: 11/08/20 16:48 AB [id number]) Physical Therapy Current Condition Current Condition Evaluation Date 11/08/20 Treatment Diagnosis R hip fx s/p ORIF; difficulty in walking Onset Date 11/06/20 Weight Bearing Status Weight Bearing Status Partial Weight Bearing Allowed Weight Bearing Amount (enter % RLE: 50% PWB or #) (%) M3 PT-IP Subjective Start: 11/08/20 16:18 Freq: NEEDED Status: Active Protocol: Document 11/08/20 14:20 AB (Rec: 11/08/20 16:48 AB [id number]) Subjective Physical Therapy Visit Type Type Initial Evaluation Visit Start Time 14:20 Visit Stop Time 15:45 Total Visit Minutes 40 Notes pt seen for split visits: 1420 to 150 and 1535 to 1545. Pt seen for eval but NAC requested assisted for pt proper chair positioning. Number of LEGAL TRANSCRIPTIONIST Visits 0 Physical Therapy Visit Comments Patient Comments pt is agreeable to do PT Therapy Pain Assessment Pain When Pain Assessed During Mobility Pain Present Pain Present Pain Reported Location Right Hip Scale Used pain scale not stated Pain Behaviors Facial Grimacing,Guarding, Wincing Pain Management Techniques Apply Cold,Distraction, Modification of Treatment,Re- positioning,Timing of Activity with Medications M4 PT-IP Mobility and Gait Start: 11/08/20 16:18 Freq: NEEDED Status: Active Protocol: Document 11/08/20 14:20 AB (Rec: 11/08/20 16:48 AB [id number]) PT-Bed Mobility Assessment Supine to Sit Supine to Sit Total Assistance,2 Person Assistance,Head of Bed Elevated Scooting Scooting to Edge of Bed Dependent PT-Transfer Assessment Sit to and From Stand Sit to and from Stand Total Assistance,2 Person Assistance,Use of Upper Extremities Equipment Transfer Assistive Device Gait Belt Orthotic/Prosthetic Devices or Brace: No Transfers Transfer Destination Chair Transfer Technique Squat Pivot Transfer Ability Level of Assist Maximum Assistance,Total Assistance,2 Person Assistance ,Use of Upper Extremities Comments Mobility Comments NAC in room to assist. completed heel slides prior to mobility. pt with c/o increase hip pain and RLE goes into flexion with mobility due to pain. pt agreeable to get up. completed supine to sit total A x 2 and max cues with HOB elevated. pt was able to sit on EOB mod A for sitting balance. educated pt on weight bearing restriction on RLE. attempted sit to stand x 3 reps but pt unable to fully stand upright despite total A x 2. c/o increase pain with increase trunk forward flexion and has rigidity. assisted pt to transfer on to the chair and completed squat pivot transfer max A x 2 to total A x 2 and max cues with PT in front to assist pt and NAC behind pt to assist. positioned pt on the chair. call light and table placed within reach. Left pt with NAC . NAC asked assistance afterwards for proper chair positioning for pt. pt required total A x 2. pt with increase lateral trunk side leaning to the L and has rigidity. Gait Assessment Comments Gait Comments unable at this time PT-Balance Assessment Sitting Balance and Reactions Static Sitting Balance Ability Poor Dynamic Sitting Balance Ability Poor Standing Balance and Reactions Static Standing Balance Ability Poor Dynamic Standing Balance Ability Poor Device Used FWW M5 PT-IP Objective Assessments Start: 11/08/20 16:18 Freq: NEEDED Status: Active Protocol: Document 11/08/20 14:20 AB (Rec: 11/08/20 16:48 AB [id number]) Orientation Orientation/Cognition Level of Alertness [place] Safety Awareness Decreased Safety Awareness Gross Range of Motion Lower Extremity ROM Assessment Right Impaired Impairments pain limiting RLE movement Strength Comments Strength Comments unable to do MMT due to pt's difficulty following directions Other Assessments Other Other Assessments (+) trunk rigidity in flexion during standing M6 PT-IP Treatment Start: 11/08/20 16:18 Freq: NEEDED Status: Active Protocol: Document 11/08/20 14:20 AB (Rec: 11/08/20 16:48 AB [id number]) Physical Therapy Treatment Exercises Exercises Heel Slides Education Education Provided Precautions,Weight Bearing Status,Post-Op Packet,Safety M7 PT-IP Assessment and Plan Start: 11/08/20 16:18 Freq: NEEDED Status: Active Protocol: Document 11/08/20 14:20 AB (Rec: 11/08/20 16:48 AB [id number]) PT Summary Assessment and Plan Potential Rehabilitation Potential Fair Status of Condition at Evaluation Evolving Summary Impairments Pain,ROM,Strength,Balance, Coordination,Sensation,Tone, Cognition,Bed Mobility, Transfers,Gait,Activity Tolerance Assessment Summary pt requiring total Ax 2 with all mobilities and is non ambulatory at this time. pt also has PD contributing to difficulty with following directions and mobility. Pt will require SNF rehab to improve strength and function. Goals Bed Mobility Goal Moderate Assistance Transfer Goal Moderate Assistance,Front Wheeled Walker Gait Goal Moderate Assistance,Front Wheel Walker Gait Distance 10 Days to Meet Goals 10 Frequency of Treatment Frequency Of Treatment Twice a Day Treatment Plan Physical Therapy Treatment Plan Bed Mobility Training,Transfer Training,Gait Training, Therapeutic Exercise,Balance Retraining,Post Op Education, Discharge Planning,Hot or Cold Pack,Neuromuscular Re-ed, Coordination Retraining,Manual Therapy Precautions Other Precautions RLE:PWB 50% Recommendations To Nursing Amount of Assist Needed Mechanical Lift Discharge Recommendations PT Discharge Recommendations SNF Rehab Transportation Needs at Discharge Wheelchair/Cabulance,Stretcher /Ambulance
--- NOTE | 2020-11-08 15:43 | ST.IPDYTX ---
Visit Care Team Role Provider Type Coleman Amaya MD Other Providers Physician Specialty: Orthopedic Surgery Address: [address] [place] [address], [place], [address] Email: [email or web address] Jay Beckham DO Emergency Provider Physician Referring Provider Specialty: Emergency Medicine Address: [address] [place] [address], [address] Email: [email or web address] Hudson Mcmanus MD Attending Provider Physician Primary Care Provider Specialty: Internal Medicine Address: [address] [place] [address], [address], [address] Email: [email or web address] Bailey Chin MD Admit Provider Physician Specialty: Family Practice Address: [address] [place] [address], [facility] [place] [place] [place], [facility] Email: [email or web address] DEMURRAGE CLERK Dysphagia Treatment DEMURRAGE CLERK Dysphagia Treatment Start: 11/08/20 10:09 Freq: Status: Active Protocol: Document 11/08/20 15:16 GEOVANNI (Rec: 11/08/20 15:41 GEOVANNI [id number]) Dysphagia Treatment Session Time Visit Start Time 11:25 Visit Stop Time 11:40 Total Visit Minutes 15 Setting Assessment Location Acute Care Visit Type Note Type Treatment Note Next Note Type Next Note Type Treatment Note Patient Information Subjective Observations The pt is familiar to this DEMURRAGE CLERK from outpatient care which has been targeting speech intelligibility, breath support for speech and cough, and dysphagia, including saliva management. In treatment, the pt has been using single sip and multiple swallow strategies with thin liquids and mechanical soft textures. Cough production is weak at baseline, and the pt frequently produces wet vocal quality d/t penetration of saliva into the airway. The pt was awake, lying in bed with , Oh, at bedside. She recognized this DEMURRAGE CLERK upon arrival and was pleasant and moderately, though quietly, conversant throughout the session. Treatment Treatment Activities No trials were administered for pt safety. The pt's tidal breathing was noted to be audibly wet throughout the session, which is not baseline . DEMURRAGE CLERK instructed pt to take a slow deep breath and cough hard. The pt was unable to produce volitional cough greater than throat clearing, which is not uncommon for her, but was insufficient to be productive. Education was provided to pt/ spouse RE POC and increased risk of aspiration d/t recent intubation from surgery, generalized weakness and fatigue, and possible medication effects. Both pt and verbalized understanding and agreement of plan to continue swallow assessment over hospital course with advancement to oral intake if/when safety permits. The pt's requested medical team be informed of the pt's baseline swallow ability. This DEMURRAGE CLERK agreed to and did discuss this with other hospital cashier payments received and with [facility] staff, Adri and Rhea. Recommended to [facility] that the pt 's oral meds be withheld for safety pending MD's assessment of benefit vs risk. Also collaborated with [facility] RE palliative care discussion with pt/spouse, which is recommended by this DEMURRAGE CLERK. Assessment Patient Response to Treatment Fair Rehab Potential Fair Assessment of Improvement The pt exhibited good alertness during the session. Vocal loudness and quality, as well as weak cough production are at or near baseline for this dear but compromised patient. At baseline, spontaneous cough production tends to be stronger than volitional cough but remains very weak. Audible and wet breath sounds are not baseline function for her. The pt is at very high risk of aspiration and is recommended to remain NPO with ongoing swallow assessment over the course of hospital stay. Diet Recommendations Recommendations Continue Current Diet Liquids Order Nothing by Mouth Comments Follow MD orders Treatment Plan Therapy Recommendations Ongoing assessment with advancement of diet when able to safely tolerate. Ongoing pt/spouse education. Breathing exercises with Breather resistance device and /or spirometer as tolerated to promote cough production and speech intelligibility. Dysphagia Goals 1. The pt will perform breathing exercises to promote cough production and improve speech intelligibility necessary for safety and participation in medical decision making. 2. The pt will demonstrate swallow safety sufficient to resume oral intake.
[2020-11-08] MEDS: CARBIDOPA-LEVODOPA 10/100 TABLET 1 EACH PO (15:57)
[2020-11-08] MEDS: HYDROMORPHONE 0.5 MG INJ 0.2 MG IV (18:56)
[2020-11-08] MEDS: ACETAMINOPHEN 325 MG TABLET 975 MG PO (21:57)
[2020-11-08] MEDS: METHYLPHENIDATE 5 MG TABLET PO (21:57)
[2020-11-08] MEDS: DONEPEZIL 5 MG TABLET 10 MG PO (21:58)
[2020-11-08] MEDS: clonazePAM 0.5 MG TABLET 1.5 MG PO (21:58)
[2020-11-08] MEDS: ASPIRIN EC 81 MG TABLET PO (21:58)
[2020-11-09] VITALS (22 sets, daily range): BP systolic 99–157; BP diastolic 45–67; PULSE 85–105; RESP 14–22; TEMP 36.1–37.9; O2SAT 86–96
[2020-11-09] MEDS: HYDROMORPHONE 0.5 MG INJ 0.2 MG IV (00:02)
[2020-11-09 05:55] LABS: BUN Creatinine Ratio 21.9 (6-22); Blood Urea Nitrogen 16 mg/dL (7-17); Calcium 7.9 mg/dL (8.4-10.2); Carbon Dioxide 28 mmol/L (22-32); Chloride 106 mmol/L (98-107); Estimated Glomerular Filt Rate > 60.0 mL/min (>60); Glucose 96 mg/dL (80-110); HEMOLYSIS < 15 (0-50); Potassium 3.8 mmol/L (3.4-5.1); Sodium 136 mmol/L (137-145)
[2020-11-09 05:57] LABS: Add Manual Diff / Slide Review NO; Basophils Absolute Auto 0 /uL (0-100); Basophils Percent Auto 0.7 % (0-2); Eosinophils Absolute Auto 0 /uL (0-450); Eosinophils Percent Auto 0.6 % (2-4); Lymphocytes Absolute Auto 1300 /uL (1100-4500); Lymphocytes Percent Auto 22.6 % (25-40); Mean Corpuscular HGB Conc 33.4 % (30-36); Mean Corpuscular Hemoglobin 31.2 PG (26-34); Mean Corpuscular Volume 93.3 fL (80-100); Monocytes Absolute Auto 600 /uL (0-900); Monocytes Percent Auto 10.9 % (3-14); Neutrophils Absolute Auto 3600 /uL (1500-7000); Neutrophils Percent Auto 65.2 % (50-75); Platelet Count 95 X10^3/uL (150-400); Red Blood Cell Count 2.08 X10^6/uL (4.0-5.2); Red Cell Distribution Width 13.7 % (11.6-14.8); White Blood Cell Count 5.5 X10^3/uL (4.5-11.0)
[2020-11-09 06:00] LABS: Hematocrit 19.4 % (36-46); Hemoglobin 6.5 g/dL (12.0-16.0)
--- NOTE | 2020-11-09 07:58 | P.PN_ITS ---
Subjective Subjective Date Patient Seen: 11/09/20 Time Patient Seen: 07:58 Interval history: Patient reports feeling tired. Still has lots of pain over the hip any time she tries to move it. Currently has an ice pack over the area. Denies any trouble breathing. Still has a cough that has been present consistently Was seen by speech therapy yesterday found to have significant dysphagia and placed NPO. While this may be worse currently this is not new for her she has had significant dysphagia and has been recommended to be NPO with feeding tube in the past the patient has decline. She has had previous history with aspiration pneumonia and despite that has elected to continue to eat for enjoyment as well as nourishment and avoid feeding tubes. Exam Vital Signs (past 8 hours): - 11/09/20 00:15 11/09/20 06:54 11/09/20 07:05 Temperature 98.4 F 98.2 F 98.3 F Pulse Rate 97 H 85 88 Respiratory Rate 16 14 14 Blood Pressure 99/45 L 124/53 L 131/60 Pulse Oximetry 91 Oxygen Delivery Method Room Air Oxygen Flow Rate 0 Narrative Exam Narrative: Elderly female lying in her bed with actually more of a voice than usual and therefore stronger HEENT unremarkable Lungs-good breath sounds scattered crackles seem to clear with coughing no wheezes Heart-regular rate and rhythm Abdomen-benign Right hip-bandage in place with very small area of blood Objective Labs Result Diagrams: 11/09/20 05:26 11/09/20 05:26 Labs: Laboratory Results - last 24 hr 11/06/20 11/08/20 11/09/20 20:15 11:20 05:26 WBC 5.5 RBC 2.08 L Hgb 8.0 L 6.5 L* Hct 23.8 L 19.4 L* MCV 93.3 MCH 31.2 MCHC 33.4 RDW 13.7 Plt Count 95 L Neut % (Auto) 65.2 Lymph % (Auto) 22.6 L Cross % (Auto) 10.9 Eos % (Auto) 0.6 L Baso % (Auto) 0.7 Neut # (Auto) 3600 Lymph # (Auto) 1300 Cross # (Auto) 600 Eos # (Auto) 0 Baso # (Auto) 0 Sodium Potassium Chloride Carbon Dioxide BUN Creatinine Estimated GFR BUN/Creatinine Ratio Glucose Calcium Blood Type A Positive Antibody Screen Negative Crossmatch See Detail 11/09/20 05:26 WBC RBC Hgb Hct MCV MCH MCHC RDW Plt Count Neut % (Auto) Lymph % (Auto) Cross % (Auto) Eos % (Auto) Baso % (Auto) Neut # (Auto) Lymph # (Auto) Cross # (Auto) Eos # (Auto) Baso # (Auto) Sodium 136 L Potassium 3.8 Chloride 106 Carbon Dioxide 28 BUN 16 Creatinine 0.73 Estimated GFR > 60.0 BUN/Creatinine Ratio 21.9 Glucose 96 Calcium 7.9 L Blood Type Antibody Screen Crossmatch [facility] Medical History Aspiration, chronic pulmonary Dysphagia, neurologic Mild intermittent asthma without complication (01/18/11) Osteoporosis (01/18/11) Parkinson's disease (01/18/11) Surgical History History of surgery Status post hysterectomy with oophorectomy Social History household members: spouse Smoking Status: Never smoker alcohol intake: never Assessment & Plan Assessment & Plan narrative: 1. Postop day 2. Status post right hip ORIF-has not had much the way physical therapy because of her idea factors. Has had significantly low hemoglobin he matocrit as the primary cause. No evidence of active bleeding at this time. Very low estimated blood loss although patient is not demonstrating any signs or symptoms of active bleeding at this time. I would have to assume this is related to shifts related to her surgery rather than anything more serious Patient received transfusion today and hopefully be more amenable to physical therapy etcetera 2. Acute blood loss anemia-patient with significant anemia both yesterday and this morning on blood test. Received 1 unit of packed cells yesterday will receive a 2nd unit this morning. Again no evidence of active blood loss. I assume this is related to blood loss at time of surgery even though the estimated blood loss was relatively minimal there may be shifting. No evidence of bleeding around her wound etcetera. Is having increased pain. I am sure orthopedic surgery will review for evidence of issues related to surgery and this blood loss this morning when seen. 3. Dysphagia-patient with longstanding dysphagia related to her parkinsonism. She has had multiple aspiration pneumonias although has done okay recently. Is obviously actively aspirating probably nearly 100% of the time. Decision has been made in the past to avoid feeding tubes. She may be somewhat weaker and more debilitated today than she would been prior to this injury and recent surgery which may make her aspiration bit more significant currently. I am going to continue her on a dysphagia diet for now while working with speech therapy. Will need to re-evaluate patient's desires regarding feeding tube. I started that conversation with her this morning and will discuss with her spouse Oh as well. Previously patient and spouse have been fully aware that continued oral nutrition could likely resulted in recurrent pneumonias which may not end up being treatable at some point and or may not be a survival condition and they were fully accepting of that consequence which seems entirely appropriate 4. Parkinsonism-continue patient's usual Parkinson's medications. Her voice is actually stronger than it often times is suggesting to me she is actually doing okay in this regard. She is of course not been up on her feet much yet mostly due to her postop pain and her profound anemia. 5. Depression/anxiety-continue home meds 6. Disposition-patient clearly will need to go to nursing home when ready for discharge which not likely be for several more days given issues above. 7. VTE prophylaxis-patient continues on b.i.d. aspirin as per Ortho usual postop prophylaxis. Is not receiving any stronger anticoagulant which is important in the setting of the acute blood loss anemia as above. Continue as per Orthopedic surgery.
--- NOTE | 2020-11-09 09:05 | PT-IP ANOTE ---
H/H 6.5/19.4 Per RN hold pt for today, pt to get one unit blood this morning and one unit at 1400.
[2020-11-09] MEDS: TRIHEXYPHENIDYL 2 MG 2 EACH PO ×5 (09:13→21:05)
--- NOTE | 2020-11-09 09:13 | OT.IPNOTE ---
Per nursing pt to be getting 2 units of blood today and will not be completed til after 2pm today. Therefore, decided best to HOLD Ot eval until tomorrow .
[2020-11-09] MEDS: CARBIDOPA-LEVODOPA 10/100 TABLET 2 EACH PO ×2 (09:18→12:27)
[2020-11-09] MEDS: METHYLPHENIDATE 5 MG TABLET PO (09:18)
[2020-11-09] MEDS: LORazepam 1 MG TABLET PO (09:18)
[2020-11-09] MEDS: ASPIRIN EC 81 MG TABLET PO ×2 (09:18→21:04)
[2020-11-09] MEDS: ACETAMINOPHEN 325 MG TABLET 975 MG PO ×3 (09:18→21:04)
[2020-11-09] MEDS: SODIUM CHLORIDE 0.9% FLUSH 10 ML IV (09:20)
--- NOTE | 2020-11-09 09:58 | PM.PNPO.1 ---
Subjective Subjective Date Patient Seen: 11/09/20 Time Patient Seen: 09:58 Interval history: Patient drowsy this morning and having difficulty communicating. Severe pain with movement of the hip. More mild with rest. Exam Vital Signs (past 8 hours): - 11/09/20 06:54 11/09/20 07:05 11/09/20 08:00 Temperature 98.2 F 98.3 F 100.3 F H Pulse Rate 85 88 93 H Respiratory Rate 14 14 16 Blood Pressure 124/53 L 131/60 140/63 Pulse Oximetry 95 11/09/20 09:18 11/09/20 09:47 Temperature 100.3 F H 99.5 F Pulse Rate 95 H Respiratory Rate 14 Blood Pressure 122/57 L Pulse Oximetry Oxygen Delivery Method Nasal Cannula Oxygen Flow Rate 1 Narrative Exam Narrative: 75-year-old female resting in bed in no apparent distress. Both dressing shows scant drainage. Mild swelling generally about the right hip with mild ecchymosis present. No erythema. Both legs are warm and dry. Objective Labs Result Diagrams: 11/09/20 05:26 11/09/20 05:26 Labs: Laboratory Results - last 24 hr 11/06/20 11/08/20 11/09/20 20:15 11:20 05:26 WBC 5.5 RBC 2.08 L Hgb 8.0 L 6.5 L* Hct 23.8 L 19.4 L* MCV 93.3 MCH 31.2 MCHC 33.4 RDW 13.7 Plt Count 95 L Neut % (Auto) 65.2 Lymph % (Auto) 22.6 L [place] % (Auto) 10.9 Eos % (Auto) 0.6 L Baso % (Auto) 0.7 Neut # (Auto) 3600 Lymph # (Auto) 1300 [place] # (Auto) 600 Eos # (Auto) 0 Baso # (Auto) 0 Sodium Potassium Chloride Carbon Dioxide BUN Creatinine Estimated GFR BUN/Creatinine Ratio Glucose Calcium Blood Type A Positive Antibody Screen Negative Crossmatch See Detail 11/09/20 05:26 WBC RBC Hgb Hct MCV MCH MCHC RDW Plt Count Neut % (Auto) Lymph % (Auto) [place] % (Auto) Eos % (Auto) Baso % (Auto) Neut # (Auto) Lymph # (Auto) [place] # (Auto) Eos # (Auto) Baso # (Auto) Sodium 136 L Potassium 3.8 Chloride 106 Carbon Dioxide 28 BUN 16 Creatinine 0.73 Estimated GFR > 60.0 BUN/Creatinine Ratio 21.9 Glucose 96 Calcium 7.9 L Blood Type Antibody Screen Crossmatch [facility] Medical History Aspiration, chronic pulmonary Dysphagia, neurologic Mild intermittent asthma without complication (01/18/11) Osteoporosis (01/18/11) Parkinson's disease (01/18/11) Surgical History History of surgery Status post hysterectomy with oophorectomy Social History household members: spouse Smoking Status: Never smoker alcohol intake: never Assessment & Plan Post-op Postoperative Procedures: Procedures Operation Date: 11/07/20 17:00 Actual Procedures Side Surgeon p Cephalomedullary Nailing Femur Right Coleman Amaya MD Status post closed reduction, placement long cephalomedullary nail on November 07, 2020. Partial weight-bearing, 50%, right lower extremity Internal medicine following patient as well patient for postop anemia she received 1 unit yesterday and other unit today. Dysphagia, longstanding related to her Parkinson's. Internal Medicine is continuing her dysphagia diet for now. Speech therapy is working with patient. Discharge to intermediate facility when stable per Internal Medicine.
[2020-11-09] MEDS: BUDESONIDE 0.5 MG/2 ML NEB INH ×2 (10:21→20:41)
[2020-11-09] MEDS: ALBUTEROL 2.5 MG/3 ML NEB (ADULT) INH ×4 (10:21→20:41)
--- NOTE | 2020-11-09 12:49 | PC.NURSE ---
Day shift: Spouse (Oh) in room for support. He is applying moisture cream to Pt's BLE's and BUE's at this time. Spouse given info about PEG tube. Left message for Dr Mcmanus that Oh wants to talk to him. Pt tolerated both units of PRBC's today. Tolerating PO meds in carrier. Call light in reach. Bed alarm is on.
[2020-11-09] MEDS: LACTATED RINGERS 1,000 ML 100 ML IV ×2 (13:32→23:32)
[2020-11-09] MEDS: CARBIDOPA-LEVODOPA 10/100 TABLET 1 EACH PO (14:05)
--- NOTE | 2020-11-09 15:25 | ST.IPDYTX ---
Visit Care Team Role Provider Type YAHAIRA Esparza Other Providers [employer] Specialty: Family Practice Address: [address] [place] [address], [id number] Email: [email or web address] Coleman Amaya MD Other Providers Physician Specialty: Orthopedic Surgery Address: [address] [place] [address], [address] Email: [email or web address] Jay Beckham DO Emergency Provider Physician Referring Provider Specialty: Emergency Medicine Address: [address] [place] [address], [address] Email: [email or web address] Hudson Mcmanus MD Attending Provider Physician Primary Care Provider Specialty: Internal Medicine Address: [address] [place] [address], [address], [address] Email: [email or web address] Bailey Chin MD Admit Provider Physician Specialty: [facility] Practice Address: [address] [place] [address], [place], [address] Email: [email or web address] COMMERCIAL CENSUS TAKER Dysphagia Treatment COMMERCIAL CENSUS TAKER Dysphagia Treatment Start: 11/08/20 10:09 Freq: Status: Active Protocol: Document 11/09/20 10:10 TLC (Rec: 11/09/20 10:25 TLC [id number]) Dysphagia Treatment Session Time Visit Start Time 09:45 Visit Stop Time 10:10 Total Visit Minutes 25 Setting Assessment Location Acute Care Visit Type Note Type Treatment Note Next Note Type Next Note Type Treatment Note Patient Information Subjective Observations Per chart review, Dr. Mcmanus had a conversation this morning with the patient regarding chronic aspiration. Patient elected to continue to eat for enjoyment and nourishment with understanding of risk of pneumonia. Per nursing, patient had a difficult time getting meds down whole in applesauce this morning. Patient was seen on two occasions today. In the AM she was minimally verbal, nearly aphonic and drowsy likely due to previously administered pain medication. She was seen in the PM and was much more alert and responsive with more intelligible speech. She requested ice cream this afternoon. Treatment Solids Trialed Puree Administration Type Tea Spoon,Dependent Feeding Oral Strategies Upright at 90 degrees, Controlled Bite/Sip Size Pharyngeal Strategies Double Swallow,Effortful Swallow Treatment Activities COMMERCIAL CENSUS TAKER discussed techniques to reduce risk of aspiration pneumonia to include: small bites/sips, slow rate, effortful swallow and oral care following each meal. Provided verbal and written education on the importance of oral care and it's role in minimizing risk of developing pneumonia to the patient and her . This afternoon, patient consumed ~10 small bites of ice cream per her request. Vocal quality was significantly gurgly and patient often implemented double swallow without prompting. Occasional throat clearing and reflexive cough were present during PO intake and noted to be productive. Patient declined liquid trials and suctioning. Assessment Patient Response to Treatment Fair Rehab Potential Fair Assessment of Improvement Patient has chosen to continue with PO intake following discussion with Dr. Mcmanus this AM. Most recent MBSS in May of 2019 revealed penetration with aspiration of thin liquids. She declines repeat MBS when offered. Ongoing education regarding strategies to reduce risk of developing pneumonia in the presence of aspiration is recommended. Diet Recommendations Recommendations Continue Current Diet Liquids Order Thin Diet Order Dysphagia Mechanical Medication Recommendations As Tolerated,Whole in Carrier Additional Dietary Needs 1:1 Assistance,Reminders to Use Strategies Aspiration Precautions Recommended Precautions Small Bites/Sips,Effortful Swallow Treatment Plan Therapy Recommendations Education Dysphagia Goals 1. Patient will demonstrate understanding of and independently implement strategies to minimize risk of aspiration pneumonia including small bites/sips, effortful swallow and stringent oral care following each meal. 1. The pt will perform breathing exercises to promote cough production and improve speech intelligibility necessary for safety and participation in medical decision making.
[2020-11-09] MEDS: OXYCODONE IR 5 MG TABLET PO (19:31)
[2020-11-09] MEDS: clonazePAM 0.5 MG TABLET 1.5 MG PO (21:04)
[2020-11-09] MEDS: DONEPEZIL 5 MG TABLET 10 MG PO (21:04)
[2020-11-09] MEDS: VENLAFAXINE ER 75 MG CAP PO (21:04)
[2020-11-09] MEDS: METOPROLOL ER 25 MG TABLET PO (21:12)
[2020-11-10] VITALS (9 sets, daily range): BP systolic 110–114; BP diastolic 52–54; PULSE 76–97; RESP 14–20; TEMP 36.7–36.8; O2SAT 92–97
[2020-11-10 04:49] LABS: Hemoglobin 8.6 g/dL (12.0-16.0)
[2020-11-10] MEDS: OXYCODONE IR 5 MG TABLET PO ×2 (05:33→12:04)
[2020-11-10] MEDS: CARBIDOPA-LEVODOPA 10/100 TABLET 2 EACH PO ×2 (07:40→11:23)
--- NOTE | 2020-11-10 07:59 | PC.NURSE ---
Addendum entered by Bita Gamboa R.N. 11/10/20 14:40: Patient's IV found to be leaking. Removed and restarted in LUE. Patient tolerated. Patient repositioned, given afternoon medications with water then pudding, patient coughing intermittently. Prescribed IV antibiotics started. Patient's bedside. Catheter emptied. Original Note: Patient resting in bed with eyes closed, breathing unlabored on 1L, 95%, mouth breathing, expiratory wheezing, continuous pulse ox remains on. Patient woken for morning medications. Eyes open with touch. Poor articulation, patient encouraged to cough, then suctioned by RN. Patient given sips of water with medication. Patient tolerated. R Hip dressing CDI. Pulses equal bilaterally. Patient able to wiggle toes, and slightly raise arms, turns head side to side with prompting. Blanco catheter patent, draining. Abdomen soft, non-tender. Brief on.
[2020-11-10] MEDS: ASPIRIN EC 81 MG TABLET PO ×2 (08:07→20:31)
[2020-11-10] MEDS: ACETAMINOPHEN 325 MG TABLET 975 MG PO ×3 (08:07→20:31)
[2020-11-10] MEDS: TRIHEXYPHENIDYL 2 MG 2 EACH PO ×3 (08:11→20:33)
--- NOTE | 2020-11-10 08:17 | DI.RAD.S_ITS ---
PROCEDURE: XR CHEST 1V INDICATIONS: aspiration TECHNIQUE: One view of the chest was acquired. COMPARISON: [facility], CR, XR CHEST 2V, 01/26/2020, 17:29. FINDINGS: Surgical changes and devices: Bilateral pulse generator is incidentally noted Lungs and pleura: No pleural effusions or pneumothorax. Retrocardiac opacity with dense appearance. There is also right basilar opacity with patchy consolidative appearance although grossly unchanged. Blunting of the right and left costophrenic angles. Mediastinum: Mediastinal contours appear normal. Heart size is normal. Bones and chest wall: No suspicious bony lesions. Overlying soft tissues appear unremarkable. IMPRESSION: Scattered scarring/atelectasis however superimposed retrocardiac dense consolidation which is new and suggestive of aspiration and/or pneumonia. Recommend short interval follow-up with chest radiographs after treatment to document resolution and exclude underlying pulmonary nodule. Dictated by: Gerardo Cordero M.D. on 11/10/2020 at 8:41 Approved by: Gerardo Cordero M.D. on 11/10/2020 at 8:44
--- NOTE | 2020-11-10 08:18 | PM.PN.1 ---
Subjective Subjective Date Patient Seen: 11/10/20 Time Patient Seen: 08:18 Interval history: Patient had reasonably good day yesterday. Did receive 2 units of packed cells for recurrent anemia of course. Was seen by speech therapy still struggling to swallow with some probable aspiration which is at some level her baseline Has not had physical therapy because of her anemia and overall generally debilitated state Says her pain maybe slightly better this morning Exam Vital Signs (past 8 hours): Oxygen Delivery Method Nasal Cannula Oxygen Flow Rate 3.5 Narrative Exam Narrative: Debilitated chronically ill cachectic-appearing female in no obvious distress lying in her hospital bed HEENT unremarkable Lungs-coarse crackles seem to clear with deep breathing although her breath sounds are diminished at baseline Heart-regular rate and rhythm Abdomen-benign Objective Labs Result Diagrams: 11/10/20 04:19 11/09/20 05:26 Labs: Laboratory Results - last 24 hr 11/06/20 11/10/20 20:15 04:19 Hgb 8.6 L Hct 25.0 L Blood Type A Positive Antibody Screen Negative Crossmatch See Detail [facility] Medical History Aspiration, chronic pulmonary Dysphagia, neurologic Mild intermittent asthma without complication (01/18/11) Osteoporosis (01/18/11) Parkinson's disease (01/18/11) Surgical History History of surgery Status post hysterectomy with oophorectomy Social History household members: spouse Smoking Status: Never smoker alcohol intake: never Assessment & Plan Assessment & Plan narrative: 1. Postop day # 3, Right hip ORIF-inject to really received any skilled therapies because of her anemia and debilitated state. We need to get her moving with physical therapy today hopefully. This will help with her respiratory status as well as I think with her overall level of weakness etcetera. No evidence of complication. Blood count is stable anyway this morning. Plan to recheck tomorrow 2. Hypoxia/aspiration-I am concerned the patient is developing an aspiration pneumonia. Low-grade temperature this morning. Increased oxygen requirements. Plan to do chest x-ray and if necessary put her on IV antibiotics. Discussion with patient and spouse yesterday suggested they would now be more open to consideration of a feeding tube if necessary. That does kind of play into overall long-term as well as short-term goals of treatment and care for this patient who is nearing the end stage her parkinsonism. For the moment will continue with current speech therapy and current diet plan as above to check chest x-ray initiate IV antibiotics if necessary. I am hopeful that with time and improved overall status she will regain her ability to protect her airway which may may not be the case today 3. Acute blood loss anemia-numbers are least stable for the moment. Plan to recheck hemoglobin hematocrit tomorrow. Hopefully we have caught up with her blood loss and or she has stopped with fluid shifts that have I think contributed to the numbers being somewhat down. 4. Parkinson's disease-continue patient's usual medication. Encourage increased activity which will help all of the above issues. Whether not she can actually be managed in the home setting in the future even after completing we have for this surgery and hip fracture is yet to be determined. What her long-term prospects look like are also yet to be determined I am not sure patient's spouse of ever had any real long-term care long-term goal of care discussions. I vast our palliative care team to see the patient help evaluate some of these issues both for the near term as well as long-term Overall patient will clearly need to go to nursing home when ready for discharge from [facility]. She is not yet ready for discharge has not really even begun any sort of skilled therapy for her postoperative state. Unlikely to be ready for discharge for another 48-72 hours at a minimum.
[2020-11-10] MEDS: BUDESONIDE 0.5 MG/2 ML NEB INH ×2 (08:59→19:52)
--- NOTE | 2020-11-10 09:11 | PM.CN.PC.1 ---
History of Present Illness Consult details Date Patient Seen: 11/10/20 Time Patient Seen: 15:30 Chief complaint: Fall/ rt leg injury Reason for consult: Palliative Medicine Consultation Requesting provider: Hudson Mcmanus Narrative: Reason for Consultation: Palliative medicine consultation received from Dr. Mcmanus regarding this very frail, elderly 75-year-old woman who suffered a fall when she attempted to stand independently from a seated position 11/06/2020. She has previously suffered a left hip fracture remotely. ED notes indicate that at baseline, the patient has very limited independent mobility, requiring assistance with bathing, dressing, mobility and is unable to independently feed herself. Her activated EMS and she was brought to the ER for evaluation of right hip and groin pain, and a suspected closed right hip fracture. X-ray confirmed patient with right hip fracture. The patient was admit to the medical floor in anticipation of surgery, and she was taken to OR by Dr. Amaya 11/07/2020 for repair of a displaced comminuted intertrochanteric fracture with displacement of the lesser trochanter as well as distal extension of the proximal fracture line which was unicortical. She was subsequently evaluated by speech therapy and noted to suffer from severe dysphagia. It was recommended that patient be NPO with tube feedings only, which patient has previously declined. Of note, patient has a significant past medical history of dysphagia with aspiration pneumonia, and has elected to continue eating for pleasure and nourishment, with a goal to avoid NURIS by way of the gastrointestinal tract. In light of this previous decision, her diet has been advanced to dysphagia diet, and her primary provider has re-introduced the idea of PEG tube placement for nutritional support. Patient has received 2 units of PRBCs post for operative anemia, with her H&H coming up from 6.5/19.4 to 8.6/25 today. She has been unable to participate fully with physical therapy since her admission, is noted to be a max 2-person assist to the edge of bed which initially was poorly tolerated, with poor truck control noted; patient was able to sit for approx 10 minutes with contact guard assist before she became too fatigued to work any longer with therapies and she was assisted back to a lying position in bed. Notes indicate patient will require stretcher support upon discharge as she is unable to sit in a wheelchair. The plan for discharge to a long term facility for aggressive, restorative therapies tomorrow (Friday11/11/2020) has been delayed due her increased oxygen needs and subsequent findings of aspiration pneumonia per CXR this afternoon. Her primary provider has been placed on empiric antibiotics for treatment. Per the medical team, the plan will be to stabilize the patient and discharge to the long term facility perhaps early next week. Because of the patient's profound general decline in clinical status over months, frailty evident by weakness, frequent falls, inability to provide of adequate self care, major hip fractures, unintentional weight loss, fatigue, lethargy, and given the possibility of an underlying, incurable medical illness, the medical team is of the belief that life expectancy is limited to months, and has requested clarification of this woman's specific medical goals. Attending physician has requested palliative medicine to assist in furthering conversation with patient and family regarding the complex and sensitive medical issues of the perceived benefits/burdens of continued life prolonging treatments, realistic prognosis, perspectives on and dying, priority in clinical care and burden of physical, emotional and spiritual symptoms for patient and family. I have reviewed the medical record, radiographs, diagnostics, attempted to interview the patient (disoriented, no registration) and subsequently interviewed the patient DPOAHC. The following aspects are pertinent, current and remote medical history, social/emotional and family dynamics, current medications and effects, ROS, examination findings, prognosis, care planning, goal setting. Past Medical History: Patient has a significant past medical history of Parkinson's disease and mild intermittent asthma, with dysphagia and chronic pulmonary aspiration. Left hip fracture early 2019. Osteoporosis. Social History: Patient and her of 17 years reside in [place]. The couple have been together for over 19 years. The patient has no children of her own, but spouse Oh has 3 children from a previous union. None of his children live locally. Patient was diagnosed with Parkinsons disease in 1993. She lived for many years in the [facility], and chose to relocate to [place] to be closer to her Parkinsons medical providers and support systems as the drive from [place] to this area was becoming increasingly burdensome to her. 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 She has been unable to practice her art for many years, and has been wheelchair bound for most of the past decade, per Oh. She used to love roller blade and was a very active athlete prior to her decline from this progressive neurological disorder. She is cared for in her home by her . The stated goal per Oh and the patient is for her to get home. She has previously been in a long term facilty for rehabilitative efforts after her left hip fracture last year, which per other provider notes was not a good experience for her. The patient is noted to have a [facility] POLST on file with the medical system. Meds Home Medications and Allergies Home Medications Medication Instructions Recorded Confirmed Type donepezil [Aricept] 10 mg PO QDAY #0 05/05/12 11/06/20 History Disabled [address]ing #1 each 01/08/18 11/06/20 Rx aspirin 81 mg tablet,delayed 81 mg PO DAILY 01/14/18 11/06/20 History release venlafaxine 75 mg capsule,extended 75 mg PO BEDTIME #90 cap 01/14/19 11/06/20 History release 24 hr clonazepam 0.5 mg tablet 1.5 mg PO BEDTIME #90 tab 03/10/19 11/06/20 History lorazepam 1 mg tablet See Rx Instructions PO DAILY PRN 03/10/19 11/06/20 History tab trihexyphenidyl 2 mg tablet 2 mg PO TID tab 03/10/19 11/06/20 History carbidopa 10 mg-levodopa 100 mg 5 tab PO DIRECTED tab 06/03/19 11/06/20 History tablet metoprolol succinate 25 mg 25 mg PO DAILY #90 tab 11/11/19 11/06/20 Rx tablet,extended release 24 hr oxycodone-acetaminophen 5 mg-325 1 tab PO Q4HP PRN #90 tab 09/07/20 11/06/20 Rx mg tablet fluticasone propion-salmeterol 2 inh INHALATION DAILY 11/06/20 11/06/20 History [Advair Diskus] trihexyphenidyl 2 mg PO PRN PRN 11/06/20 11/06/20 History Allergies Allergy/AdvReac Type Severity Reaction Status Date / Time levofloxacin Allergy Severe Hives, Verified 02/01/20 15:20 Water Blisters, Small Fever fentanyl Allergy Unknown Verified 02/01/20 15:20 hydromorphone Allergy Unknown Verified 02/01/20 15:20 Penicillins Allergy Unknown Verified 02/01/20 15:20 Review of Systems Constitutional Constitutional: Reports as per HPI Exam Vital Signs (past 8 hours): - 11/10/20 08:35 Temperature 98.2 F Pulse Rate 80 Respiratory Rate 16 Blood Pressure 110/54 L Pulse Oximetry 92 Oxygen Delivery Method Nasal Cannula Oxygen Flow Rate 1 Narrative Exam Narrative: Medically fragile woman who is very soft spoken sits up in bed. She consents to this palliative medicine consultation but demonstrates difficulty with communication, is at times lethargic/sleepy. She is accompanied by spouse Oh at bedside today. Const General: cooperative, comfortable, well groomed, frail appearing and ill appearing (chronically) Nutritional Appearance: average body habitus Orientation: oriented x3 Objective Labs Result Diagrams: 11/10/20 04:19 11/09/20 05:26 Labs: Laboratory Results - last 24 hr 11/06/20 11/10/20 20:15 04:19 Hgb 8.6 L Hct 25.0 L Blood Type A Positive Antibody Screen Negative Crossmatch See Detail Assessment & Recommendations A & R narrative: Discussion: Met with the patient and Oh at bedside. Patient most trusts Oh to help make medical decisions for her should she become incapacitated. Oh expresses his frustration at having to answer questions that he has answered with other providers, and at the suggestion that we review the patient's desires regarding resuscitation as we have had that green thing on file and I just wish people would look at it. Oh is reassured by this provider that the POLST is always reviewed, but that it must be reviewd formally with each hospitalization or change in level of care. Ms. Villalta generally defers to spouse Oh during this dialogue. She is very soft spoken and has difficulty focusing on the conversation, perhaps as a result of pain management medications. Despite this, the couple seem to have a good understanding of the anticipated functional decline of Parkinsons patients, and are involved in a support group which has helped their understanding of the disease over the years, and what to anticipate in the future. 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 The couple confirm DNAR and comfort care, but are considering NURIS by way of the GI tract, which they understand will nutritionally support the patient, and would also allow the patient continued oral feedings for pleasure. They are encouraged to consider the natural consequences of a feeding tube such as this, in light of the decision previously of the patient to avoid such measures, and would do nothing to prevent aspiration pneumonia in the future. A book called [employer] Cho[employer] for [place] [employer] is recommended to Oh, which outlines information which might be helpful for him as he assists Ms. Villalta in making this very important lifestyle decision. A brief dialogue and booklet regarding the Hospice Medicare Benefit is provided the couple for their review. They are encouraged to consider a Hospice consultation if the patient fails to progress once she is discharged to the long term facility. Finally, the couple are in receipt of the information that the discharge which was anticipated tomorrow will actually be delayed until early next week, due to newly diagnosed aspiration pneumonia and need for medical stabilization. Updated the medical team regarding the outcome of this palliative medicine consultation. Thank you for the opportunity to be involved in this unfortunate woman's care while here in the hospital, we will follow the case expectantly. Recommendations: - Enter and maintain DNAR in the patient's EMR - It is recommended the patient and her spouse read [employer] Cho[employer] for [place] [employer], which may help answer questions specifically about NURIS by way of the GI tract - Palliative Medicine will plan to meet with the patient and her again on Friday, if patient remains hospitalized. Impression: - Ground Level Fall - Right hip fracture - Acute respiratory failure - Aspiration pneumonia - Dysphagia - Anemia - Parkinson's Disease - Medical frailty To remain informed regarding current treatment opportunities, provider reviewed extensive additional documentation of multiple treatment providers/facilities which was utilized to update the management plan. Total time in review of additional medical information is 22 minutes, external to in person evaluation. Time in assessment and management of acute and chronic medical diagnoses, pertinent history to palliative medicine decision making, discussion and management of clinical findings enumerated above as well as fears regarding the transition to a more end of life plan and and dying is 26 minutes, more than half of which is necessary for education and counseling. Advanced Care Planning discussion time is 16 minutes. The patient currently lacks testamentary documents for estate planning, DPOAHC but has codified her desires regarding end of life in the form of a [place] State POLST and statement of wishes. Dialogue addresses patient preferences at the end/near end of life including resuscitation wishes (no CPR, DNAR). Additional care limits discussed above.
[2020-11-10] MEDS: ALBUTEROL 2.5 MG/3 ML NEB (ADULT) INH ×3 (09:13→19:52)
--- NOTE | 2020-11-10 11:07 | PT.IPTN ---
Current Diagnoses Displaced intertrochanteric fracture of right femur, initial encounter for closed fracture (11/06/20) Surgery Performed Operation Date: 11/07/20 17:00 Actual Procedures p Cephalomedullary Nailing Femur(Right) - Coleman Amaya MD Physical Therapy Treatment Note M2 PT-IP Current Condition Start: 11/08/20 16:18 Freq: NEEDED Status: Active Protocol: Document 11/08/20 14:20 AB (Rec: 11/08/20 16:48 AB [id number]) Physical Therapy Current Condition Current Condition Evaluation Date 11/08/20 Treatment Diagnosis R hip fx s/p ORIF; difficulty in walking Onset Date 11/06/20 Weight Bearing Status Weight Bearing Status Partial Weight Bearing Allowed Weight Bearing Amount (enter % RLE: 50% PWB or #) (%) M3 PT-IP Subjective Start: 11/08/20 16:18 Freq: NEEDED Status: Active Protocol: Document 11/10/20 10:38 CLB (Rec: 11/10/20 13:33 CLB [id number]) Subjective Physical Therapy Visit Type Type Treatment Note Visit Start Time 10:38 Visit Stop Time 11:07 Total Visit Minutes 29 Notes Co-treat with OT present during tx Number of SPRING BENDER Visits 1 Physical Therapy Visit Comments Patient Comments pt is agreeable to do PT Therapy Pain Assessment Pain When Pain Assessed During Mobility Pain Present Pain Present Pain Reported Location Right Hip Scale Used pain scale not stated Pain Behaviors Facial Grimacing,Guarding, Wincing Pain Management Techniques Distraction,Modification of Treatment,Re-positioning, Timing of Activity with Medications M4 PT-IP Mobility and Gait Start: 11/08/20 16:18 Freq: NEEDED Status: Active Protocol: Document 11/10/20 10:38 CLB (Rec: 11/10/20 13:33 CLB [id number]) PT-Bed Mobility Assessment Supine to Sit Supine to Sit Total Assistance,2 Person Assistance,Head of Bed Elevated Sit to Supine Sit to Supine Total Assistance,2 Person Assistance Scooting Scooting to Edge of Bed Dependent Scooting Up and Down in Bed Dependent PT-Transfer Assessment Comments Mobility Comments Pt requiring AAROM for ther ex . Pt requiring Total assist to EOB, initially unable to sit on EOB due to poor trunk control with heavy lean to left. SPRING BENDER sat on bed cuing pt to touch SPRING BENDER shoulder with pt shoulder, pt rested elbow on SPRING BENDER and able to sit upright for ~10 minutes CGA. Once pt fatigued in sitting pt was returned to supine. Pt left in bed with alarm on and all needs within reach. Upon d/c pt will require stretcher as pt is unable at this time to sit in WC, informed Tanesha from CM. Gait Assessment Comments Gait Comments unable at this time M5 PT-IP Objective Assessments Start: 11/08/20 16:18 Freq: NEEDED Status: Active Protocol: Document 11/08/20 14:20 AB (Rec: 11/08/20 16:48 AB [id number]) Orientation Orientation/Cognition Level of Alertness Confusional State Safety Awareness Decreased Safety Awareness Gross Range of Motion Lower Extremity ROM Assessment Right Impaired Impairments pain limiting RLE movement Strength Comments Strength Comments unable to do MMT due to pt's difficulty following directions Other Assessments Other Other Assessments (+) trunk rigidity in flexion during standing M6 PT-IP Treatment Start: 11/08/20 16:18 Freq: NEEDED Status: Active Protocol: Document 11/10/20 10:38 CLB (Rec: 11/10/20 13:33 CLB [id number]) Physical Therapy Treatment Exercises Exercises Heel Slides,Supine Hip Abduction Education Education Provided Precautions,Weight Bearing Status,Post-Op Packet,Safety M7 PT-IP Assessment and Plan Start: 11/08/20 16:18 Freq: NEEDED Status: Active Protocol: Document 11/10/20 10:38 CLB (Rec: 11/10/20 13:33 CLB [id number]) PT Summary Assessment and Plan Potential Rehabilitation Potential Fair Status of Condition at Evaluation Evolving Summary Impairments Pain,ROM,Strength,Balance, Coordination,Sensation,Tone, Cognition,Bed Mobility, Transfers,Gait,Activity Tolerance Progress Towards Goals Slow Progress due to Medical Issues,Slow Progress due to Activity Tolerance Assessment Summary Pt continues to require Total Assist x2 for bed mobility. Pt with poor trunk control requiring Total assist to start then able to sit with max cues CGA-Min A on EOB. Pt will require SNF rehab to improve strength for improved activity tolerance. Goals Bed Mobility Goal Moderate Assistance Transfer Goal Moderate Assistance,Front Wheeled Walker Gait Goal Moderate Assistance,Front Wheel Walker Gait Distance 10 Days to Meet Goals 10 Frequency of Treatment Frequency Of Treatment Twice a Day Treatment Plan Physical Therapy Treatment Plan Bed Mobility Training,Transfer Training,Gait Training, Therapeutic Exercise,Balance Retraining,Post Op Education, Discharge Planning,Hot or Cold Pack,Neuromuscular Re-ed, Coordination Retraining,Manual Therapy Precautions Other Precautions RLE:PWB 50% Recommendations To Nursing Amount of Assist Needed Mechanical Lift Discharge Recommendations PT Discharge Recommendations SNF Rehab Transportation Needs at Discharge Stretcher/Ambulance
--- NOTE | 2020-11-10 11:10 | OT.IP.EVAL ---
Current Diagnoses Displaced intertrochanteric fracture of right femur, initial encounter for closed fracture (11/06/20) Surgery Performed Operation Date: 11/07/20 17:00 Actual Procedures p Cephalomedullary Nailing Femur(Right) - Coleman Aamya MD Past Medical History (Last Reviewed 11/10/20 @ 09:19 by YAHAIRA Esparza) Aspiration, chronic pulmonary Dysphagia, neurologic Mild intermittent asthma without complication (01/18/11) Osteoporosis (01/18/11) Parkinson's disease (01/18/11) Surgical History (Last Reviewed 11/10/20 @ 09:19 by YAHAIRA Esparza) History of surgery Status post hysterectomy with oophorectomy Occupational Therapy Inpatient Evaluation/Re-Eval M1 PT/OT-IP Prior Functional Status Start: 11/08/20 16:18 Freq: NEEDED Status: Active Protocol: Document 11/10/20 11:15 CGR (Rec: 11/10/20 11:34 CGR [id number]) Medical Review Prior Functional Status Medical History Reviewed Yes Communication pt able to answer questions inconsistently and has decrease voice volume/ hypophonia ; pt also requires cues to make eye contact Mobility and Gait pt stated that her spouse assists her with all tasks and transfers using 4WW. Per pt was able to transfer only with the 4ww. Activities of Daily Living and IADL's Pt's states that he does ~90% of all care for the pt. Social History Household Members spouse Living Arrangements House Number of Floors (Floors) Two Floors Number of Stairs To Enter/Railing? level entry Home Environment Standard Height Toilet,Walk in Shower,Built-In Shower Seat Home Equipment Four Wheel Walker,Manual Wheelchair,Hand Held Shower, Grab Bars Near Toilet,Grab Bars In Shower Employment Status Retired Additional Social History Comment Pt has an adjustable bed. M2 OT-IP Current Condition Start: 11/10/20 11:15 Freq: Status: Active Protocol: Document 11/10/20 11:15 CGR (Rec: 11/10/20 11:34 CGR [id number]) Occupational Therapy Current Condition Current Condition Evaluation Date 11/10/20 Treatment Diagnosis fall at home with R hip fx s/p ORIF 50% WB Diagnosis Onset Date 11/06/20 Weight Bearing Status Weight Bearing Status Partial Weight Bearing Allowed Weight Bearing Amount (enter % 50% or #) (%) M3 OT- IP Subjective and Pain Start: 11/10/20 11:15 Freq: Status: Active Protocol: Document 11/10/20 11:15 CGR (Rec: 11/10/20 11:34 CGR [id number]) OT- Subjective Occupational Therapy Visit Type Type Initial Evaluation Visit Start Time 10:38 Visit Stop Time 11:10 Total Visit Minutes 32 Notes co-treat with P.T., pts spouse present throughout. OT Pain Assessment Pain When Pain Assessed At Rest Pain Present Pain Present Pain Reported Location Right Hip Scale Used did not rate M4 OT- IP ADL's Start: 11/10/20 11:15 Freq: Status: Active Protocol: Document 11/10/20 11:15 CGR (Rec: 11/10/20 11:34 CGR [id number]) OT [id number] Comments OT Self-Feeding Comments Not meal time. Per ST, pt is refusing oral limitiations as suggested. OT ADL-Grooming General Evaluation Grooming Ability Total Assistance Areas Needing Assistance Combing/Brushing Hair Comments OT Grooming Comments brushed hair and braided for pt. OT ADL-Oral Care Comments Oral Care Comments Not performed OT ADL-Dressing General Eval Lower Body Dressing Ability Total Assistance Areas Needing Assistance Socks OT ADL-Toileting Comments OT Toileting Comments Pt with patel OT ADL-Bathing Comments OT Bathing Comments not performed M5 OT- IP IADL's Start: 11/10/20 11:15 Freq: Status: Active Protocol: Document 11/10/20 11:15 CGR (Rec: 11/10/20 11:34 CGR [id number]) OT-Instrumental Activities of Daily Living Deficits IADL Deficits Identified Deficits Home Safety Awareness Awareness of Need for Assistance at Home Decreased Awareness Medication Management Medication Management Caregiver Administers Money Management Money Management Caregiver Provides Assistance Meal Preparation Meal Preparation Caregiver Provides Assist Oyster Washer Oyster Washer Caregiver Provides Assist Driving Driving Comments Pt does not drive M6 OT- IP Functional Cognition Start: 11/10/20 11:15 Freq: Status: Active Protocol: Document 11/10/20 11:15 CGR (Rec: 11/10/20 11:34 CGR [id number]) Cognitive Factors Limiting Selfcare Function Cognitive Ability Level of Alertness Alert Patient Orientation Name Attention Span Ability Capable of Focused Attention, Capable of Sustained Attention Ability to Follow Commands Able to Follow One Step Commands with Increased Time, Able to Follow One Step Commands with Repetition Cognitive Comments Cognitive Assessment Comments Pt appears to understand all communication but has difficulty expressing herself with weak voice. OT- Vision and Hearing OT- Hearing Assessment OT- Hearing Assessment WFL OT- Vision Assessment Vision Assessment Comments L eye anblyosia M7 OT- IP Mobility and Balance Start: 11/10/20 11:15 Freq: Status: Active Protocol: Document 11/10/20 11:15 CGR (Rec: 11/10/20 11:34 CGR [id number]) OT- Bed Mobility Assessment Supine to Sit Supine to Sit Assist Total Assistance,2 Person Assistance Sit to Supine Sit to Supine Assist Total Assistance,2 Person Assistance Scooting Scooting to Edge of Bed Total Assistance,2 Person Assistance OT-Transfer Assessment Comments Mobility Comments Pt unable to perform OT- Gait Assessment Comments Gait Ability Comments Not performed OT- Balance Assessment Sitting Balance and Reactions Static Sitting Balance Ability Poor Dynamic Sitting Balance Ability Poor M8 OT- IP Objective Assessments Start: 11/10/20 11:15 Freq: Status: Active Protocol: Document 11/10/20 11:15 CGR (Rec: 11/10/20 11:34 CGR [id number]) OT Gross Range of Motion Upper Extremity Range of Motion Assessment Within Functional Limits OT Strength Comments Strength Comments not tested on this date OT- Coordination Assessment Upper Extremity Finger to Nose Test Within Functional Limits Finger Tapping Test Within Functional Limits Comments Coordination Comments with extra time. OT-Muscle Tone Assessment Muscle Tone WNL Yes M9 OT- IP Assessment and Plan Start: 11/10/20 11:15 Freq: Status: Active Protocol: Document 11/10/20 11:15 CGR (Rec: 11/10/20 11:34 R [id number]) OT Summary Assessment and Plan Potential Rehabilitation Potential Fair Analytic Complexity at Evaluation Moderate Summary OT Impairments Pain,Strength,Balance, Functional Mobility,Self- Feeding,Grooming,Dressing, Toileting,Bathing,Toilet Transfers,Shower Transfers, Activity Tolerance Progress Towards Goals Slow Progress due to Pain,Slow Progress due to Medical Issues Assessment Summary Pt presents as a moderate complexity evaluation s/p admit after fall with R hip fx . Pt underwent ORIF to the R hip and is now 50% weight bearing. Pt participated in limited activity today with total assist for movement and initial sitting balance but was able to improve to SBA sitting balance for limited time. Pt fatigued with minimal activity and returned to bed. Recommendation at this time is home with comfort care vs SNF per family and pt request. Goals Self-Feeding Goal Independent Grooming Goal Minimal Assistance Toilet Transfer Goal Moderate Assistance Shower Transfer Goal Moderate Assistance Days to Meet Goals 30 Frequency of Treatment Frequency Of Treatment Once a Day Treatment Plan OT Treatment Plan ADL Training,Functional Mobility,Patient/Family Education,Discharge Planning Other Treatment Recommendations and Next sitting balance, ADLs as able. Treatment Focus Discharge Recommendations OT Discharge Recommendations Home vs SNF Other Discharge Recommendations Home with comfort care vs SNF per family and pt request. Transportation Needs at Discharge Stretcher/Ambulance
[2020-11-10] MEDS: SODIUM CHLORIDE 0.9% FLUSH 10 ML IV ×2 (11:24→12:05)
--- NOTE | 2020-11-10 11:54 | CM.DPNOTE ---
Addendum entered by NADIRA Bernal 11/11/20 14:06: Reviewed Shyanne Locke's Palliative Care note. Reviewed POC w/ Dr Chin this AM; medical POC is to try to clear up this newly dx pneumonia and then revisit topic of artificial nutrition/peg placement w/patient and spouse. Surgery will need to be consulted if patient interested in artificial/peg feeding. Plan is [facility] for rehabilitative purposes. BERANRDA Original Note: DCP Cont Reviewed chart. Dr Mcmanus has requested a Palliative Care consult for this afternoon. Patient's anemia has improved and patient has worked w/therapies today. According to BONNIE [facility], patient cannot tolerate sitting upright for long and will require a BLS transport upon DC. SNF continues to be the recommendation. Met w/patient and spouse Oh at bedside to review DCP and to alert spouse of the scheduled Palliative Care consult this afternoon. Joined briefly by Shraddha FOCUSING MACHINE OPERATOR, who updates patient/spouse that inpatient FOCUSING MACHINE OPERATOR will discharge their service at this time; patient has shared her goals of care w/the outpatient FOCUSING MACHINE OPERATOR team, according to Shraddha, as never wanting artificial nutrition or feeding tube and has chosen to eat liberally. Patient asked if she is following the conversation and patient shakes her head no This FACILITIES LOCATOR advises spouse to ask Palliative Care OVER SHORT AND DAMAGE CLERK Shyanne Locke questions about patient's disease progression, ongoing risk of aspiration and goals for patient's care moving forward. Spouse tells this FACILITIES LOCATOR aspiration has been a risk for years, this FACILITIES LOCATOR asks if patient's POLST is updated and spouse states it's in her chart if you would just take the time to look. According to NIMA Sun[facility], spouse has mentioned comfort measures for patient but may benefit from education on what comfort measures would entail for plan of care. Patient remains full code at this time. Suggested to spouse that patient could DC to [facility] tomorrow, either comfort vs rehabilitative stay, spouse agreeable. This FACILITIES LOCATOR will follow closely and plan to coordinate safe DCP on patient's behalf; tentatively scheduled for Friday11.11.20 to SNF if medically stable. BERNARDA
--- NOTE | 2020-11-10 12:02 | ST.IPDYTX ---
Visit Care Team Role Provider Type YAHAIRA Esparza Other Providers Advanced Scrap Crane Operator Specialty: Family Practice Address: [address] [place] [address], [address] Email: [email or web address] Coleman Amaya MD Other Providers Physician Specialty: Orthopedic Surgery Address: [address] [place] [address], [address] Email: [email or web address] Jay Beckham DO Emergency Provider Physician Referring Provider Specialty: Emergency Medicine Address: [address] [place] [address], [address] Email: [email or web address] Mcmanus MD Attending Provider Physician Primary Care Provider Specialty: Internal Medicine Address: [address] [place] [address], [address], [address] Email: [email or web address] Bailey Chin MD Admit Provider Physician Specialty: [facility] Address: [address] [place] [address], [place], [address] Email: [email or web address] SUPERVISOR INSTRUMENT REPAIR Dysphagia Treatment SUPERVISOR INSTRUMENT REPAIR Dysphagia Treatment Start: 11/08/20 10:09 Freq: Status: Active Protocol: Document 11/10/20 11:52 MYRNA (Rec: 11/10/20 12:02 MYRNA [id number]) Dysphagia Treatment Session Time Visit Start Time 11:00 Visit Stop Time 11:25 Total Visit Minutes 25 Setting Assessment Location Acute Care Visit Type Note Type Treatment Note Patient Information Subjective Observations Per chart review, Dr. Mcmanus had a conversation this morning with the patient regarding chronic aspiration. Patient elected to continue to eat for enjoyment and nourishment with understanding of risk of pneumonia. CM was in the room with the pt. Dr Locke is cscheduled to meet withthe pt and her later today to discuss palliative care going forward. Reviewed their decisions regarding PO intake as she desires, no PeG/feeding tubes, her/their understanding of the aspiration riska and tht the ultimat outcome is likely aspiration pneumonia and a poor prognosis. Pt and confirmed all of the above. At this time, ST will discharge pt secondarey to the above discussion. Skilled ST not indicated. Treatment Solids Trialed Puree Administration Type Tea Spoon,Dependent Feeding Oral Strategies Upright at 90 degrees, Controlled Bite/Sip Size Pharyngeal Strategies Double Swallow,Effortful Swallow Treatment Activities SUPERVISOR INSTRUMENT REPAIR reviewed techniques to reduce risk of aspiration pneumonia to include: small bites/sips, slow rate, effortful swallow and oral care following each meal. Provided verbal and written education on the importance of oral care and it's role in minimizing risk of developing pneumonia to the patient and her . Assessment Patient Response to Treatment Fair Assessment of Improvement Patient has chosen to continue with PO intake following discussion with Dr. Mcmanus this AM. Most recent MBSS in May of 2019 revealed penetration with aspiration of thin liquids. She declines repeat MBS when offered. Ongoing education regarding strategies to reduce risk of developing pneumonia in the presence of aspiration is recommended. Diet Recommendations Recommendations Continue Current Diet Liquids Order Thin Diet Order Dysphagia Mechanical Medication Recommendations As Tolerated,Whole in Carrier Additional Dietary Needs 1:1 Assistance,Reminders to Use Strategies Aspiration Precautions Recommended Precautions Small Bites/Sips,Effortful Swallow Treatment Plan Placement Recommendation after Discharge [facility] Care Facility,Home with Hospice,Palliative Care Therapy Recommendations Discharge Follow Up Plan Discharge
[2020-11-10] MEDS: CARBIDOPA-LEVODOPA 10/100 TABLET 1 EACH PO (14:05)
--- NOTE | 2020-11-10 14:59 | PT.IPTN ---
Current Diagnoses Displaced intertrochanteric fracture of right femur, initial encounter for closed fracture (11/06/20) Surgery Performed Operation Date: 11/07/20 17:00 Actual Procedures p Cephalomedullary Nailing Femur(Right) - Coleman Amaya MD Physical Therapy Treatment Note M2 PT-IP Current Condition Start: 11/08/20 16:18 Freq: NEEDED Status: Active Protocol: Document 11/08/20 14:20 AB (Rec: 11/08/20 16:48 AB [id number]) Physical Therapy Current Condition Current Condition Evaluation Date 11/08/20 Treatment Diagnosis R hip fx s/p ORIF; difficulty in walking Onset Date 11/06/20 Weight Bearing Status Weight Bearing Status Partial Weight Bearing Allowed Weight Bearing Amount (enter % RLE: 50% PWB or #) (%) M3 PT-IP Subjective Start: 11/08/20 16:18 Freq: NEEDED Status: Active Protocol: Document 11/10/20 14:36 CLB (Rec: 11/10/20 15:25 CLB [id number]) Subjective Physical Therapy Visit Type Type Treatment Note Visit Start Time 14:36 Visit Stop Time 14:59 Total Visit Minutes 23 Notes present during tx Physical Therapy Visit Comments Patient Comments pt is agreeable to do PT Therapy Pain Assessment Pain When Pain Assessed During Mobility Pain Present Pain Present Pain Reported Location Right Hip Scale Used pain scale not stated Pain Behaviors Facial Grimacing,Guarding, Wincing Pain Management Techniques Distraction,Modification of Treatment,Re-positioning, Timing of Activity with Medications M4 PT-IP Mobility and Gait Start: 11/08/20 16:18 Freq: NEEDED Status: Active Protocol: Document 11/10/20 10:38 CLB (Rec: 11/10/20 13:33 CLB [id number]) PT-Bed Mobility Assessment Supine to Sit Supine to Sit Total Assistance,2 Person Assistance,Head of Bed Elevated Sit to Supine Sit to Supine Total Assistance,2 Person Assistance Scooting Scooting to Edge of Bed Dependent Scooting Up and Down in Bed Dependent PT-Transfer Assessment Comments Mobility Comments Pt requiring AAROM for ther ex . Pt requiring Total assist to EOB, initially unable to sit on EOB due to poor trunk control with heavy lean to left. EYELET CUTTER sat on bed cuing pt to touch EYELET CUTTER shoulder with pt shoulder, pt rested elbow on EYELET CUTTER and able to sit upright for ~10 minutes CGA. Once pt fatigued in sitting pt was returned to supine. Pt left in bed with alarm on and all needs within reach. Upon d/c pt will require stretcher as pt is unable at this time to sit in WC, informed Tanesha from CM. Gait Assessment Comments Gait Comments unable at this time M5 PT-IP Objective Assessments Start: 11/08/20 16:18 Freq: NEEDED Status: Active Protocol: Document 11/08/20 14:20 AB (Rec: 11/08/20 16:48 AB [id number]) Orientation Orientation/Cognition Level of Alertness Confusional State Safety Awareness Decreased Safety Awareness Gross Range of Motion Lower Extremity ROM Assessment Right Impaired Impairments pain limiting RLE movement Strength Comments Strength Comments unable to do MMT due to pt's difficulty following directions Other Assessments Other Other Assessments (+) trunk rigidity in flexion during standing M6 PT-IP Treatment Start: 11/08/20 16:18 Freq: NEEDED Status: Active Protocol: Document 11/10/20 14:36 CLB (Rec: 11/10/20 15:25 CLB [id number]) Physical Therapy Treatment Exercises Exercises Ankle Pumps,Quad Sets,Heel Slides,Supine Hip Abduction M7 PT-IP Assessment and Plan Start: 11/08/20 16:18 Freq: NEEDED Status: Active Protocol: Document 11/10/20 14:36 CLB (Rec: 11/10/20 15:25 CLB [id number]) PT Summary Assessment and Plan Potential Rehabilitation Potential Fair Status of Condition at Evaluation Evolving Summary Impairments Pain,ROM,Strength,Balance, Coordination,Sensation,Tone, Cognition,Bed Mobility, Transfers,Gait,Activity Tolerance Progress Towards Goals Slow Progress due to Medical Issues,Slow Progress due to Activity Tolerance Assessment Summary Due to pt low activity tolerance ther ex was performed in supine. Pt requiring AAROM for all ther ex. Pt is able to follow directions and attempts all exercises with initial activation. Pt will require SNF rehab to improve strength for improved activity tolerance. Goals Bed Mobility Goal Moderate Assistance Transfer Goal Moderate Assistance,Front Wheeled Walker Gait Goal Moderate Assistance,Front Wheel Walker Gait Distance 10 Days to Meet Goals 10 Frequency of Treatment Frequency Of Treatment Twice a Day Treatment Plan Physical Therapy Treatment Plan Bed Mobility Training,Transfer Training,Gait Training, Therapeutic Exercise,Balance Retraining,Post Op Education, Discharge Planning,Hot or Cold Pack,Neuromuscular Re-ed, Coordination Retraining,Manual Therapy Precautions Other Precautions RLE:PWB 50% Recommendations To Nursing Amount of Assist Needed Mechanical Lift Discharge Recommendations PT Discharge Recommendations SNF Rehab Transportation Needs at Discharge Stretcher/Ambulance
[2020-11-10] MEDS: VENLAFAXINE ER 75 MG CAP PO (20:31)
[2020-11-10] MEDS: clonazePAM 0.5 MG TABLET 1.5 MG PO (20:31)
[2020-11-10] MEDS: DONEPEZIL 5 MG TABLET 10 MG PO (20:32)
[2020-11-10] MEDS: METOPROLOL ER 25 MG TABLET PO (20:32)
[2020-11-11] VITALS (14 sets, daily range): BP systolic 119–141; BP diastolic 54–88; PULSE 72–79; RESP 16–18; TEMP 36.5–36.9; O2SAT 91–98
[2020-11-11] MEDS: SODIUM CHLORIDE 0.9% 250 ML 21 ML IV (05:20)
[2020-11-11] MEDS: SODIUM CHLORIDE 0.9% FLUSH 10 ML IV ×3 (05:20→15:59)
[2020-11-11 05:35] LABS: Add Manual Diff / Slide Review NO; Basophils Absolute Auto 0 /uL (0-100); Basophils Percent Auto 0.3 % (0-2); Eosinophils Absolute Auto 200 /uL (0-450); Eosinophils Percent Auto 3.1 % (2-4); Hemoglobin 8.1 g/dL (12.0-16.0); Lymphocytes Absolute Auto 800 /uL (1100-4500); Lymphocytes Percent Auto 15.8 % (25-40); Mean Corpuscular HGB Conc 33.8 % (30-36); Mean Corpuscular Hemoglobin 31.5 PG (26-34); Mean Corpuscular Volume 93.3 fL (80-100); Monocytes Absolute Auto 200 /uL (0-900); Monocytes Percent Auto 4.5 % (3-14); Neutrophils Absolute Auto 4100 /uL (1500-7000); Neutrophils Percent Auto 76.3 % (50-75); Platelet Count 117 X10^3/uL (150-400); Red Blood Cell Count 2.57 X10^6/uL (4.0-5.2); Red Cell Distribution Width 14.4 % (11.6-14.8); White Blood Cell Count 5.4 X10^3/uL (4.5-11.0)
--- NOTE | 2020-11-11 06:40 | PC.NURSE ---
Patient was sound asleep most of tthe night. Woke up around 0515 asked if she needed some pain medication she stated ' no, I'm okay. Will cont. POC & monitor.
[2020-11-11] MEDS: ACETAMINOPHEN 325 MG TABLET 975 MG PO ×3 (08:06→21:24)
[2020-11-11] MEDS: CARBIDOPA-LEVODOPA 10/100 TABLET 2 EACH PO ×2 (08:06→12:06)
[2020-11-11] MEDS: ASPIRIN EC 81 MG TABLET PO ×2 (08:07→21:25)
[2020-11-11] MEDS: TRIHEXYPHENIDYL 2 MG 2 EACH PO ×4 (08:07→21:26)
--- NOTE | 2020-11-11 08:58 | PT-IP ANOTE ---
PT speaks with ASSEMBLY LINE ROBOT OPERATOR who has been working with pt. Pt did not respond well to PT last treatment date and now has confirmed aspiration PNA per ASSEMBLY LINE ROBOT OPERATOR. Will decrease frequency to 1x/day and will adjust frequency again as appropriate. Thank you, Francesca
[2020-11-11] MEDS: ALBUTEROL 2.5 MG/3 ML NEB (ADULT) INH ×4 (09:11→20:56)
[2020-11-11] MEDS: BUDESONIDE 0.5 MG/2 ML NEB INH ×2 (09:11→20:56)
--- NOTE | 2020-11-11 10:15 | PT-IP ANOTE ---
1015 Pt unavailable, pt on BSC with nursing, pt had sponge bath and trying to have BM now, pt appeared fatigued and will check back on pt when able.
--- NOTE | 2020-11-11 10:23 | PC.NURSE ---
Addendum entered by Bita Gamboa R.N. 11/11/20 15:38: Island barrier dressing changed. Serosang drainage noted on 50% of dressing. Patient tolerated. Patient's LUE still moderately swollen, holding IV antibiotics to obtain alternative IV access. Tried twice, reported to oncoming RN. Original Note: Patient alert and communicative today. Soft spoken. Denies pain. Remains on 1-2 L of O2, 96%, fine crackles throughout, intermittent coughing, non-productive, refused suctioning. Afebrile. BT active, abdomen soft, patient denies tenderness with palpitation. Talked to MD about stool softener. Patient would like to have a BM, [place] to [facility] [place] [facility], patient tolerated. Bathed while up, gown and linen changed. Karis care provided. Lotion applied to back and arms. Patient currently sitting up to BSC now after requesting privacy. Dressings on R hip are intact, drainage noted on both superior island barrier and aquacel. Call light in reach.
[2020-11-11] MEDS: OXYCODONE IR 5 MG TABLET PO ×2 (10:44→16:13)
--- NOTE | 2020-11-11 10:45 | OT.IPNOTE ---
Attempted to see pt with [facility] for therapy services. Pt up on BSC after having bath and attempting BM. Nursing staff present. Will hold at this time and continue to follow.
--- NOTE | 2020-11-11 11:07 | PT.IPTN ---
Current Diagnoses Displaced intertrochanteric fracture of right femur, initial encounter for closed fracture (11/06/20) Surgery Performed Operation Date: 11/07/20 17:00 Actual Procedures p Cephalomedullary Nailing Femur(Right) - Coleman Amaya MD Physical Therapy Treatment Note M2 PT-IP Current Condition Start: 11/08/20 16:18 Freq: NEEDED Status: Active Protocol: Document 11/08/20 14:20 AB (Rec: 11/08/20 16:48 AB [id number]) Physical Therapy Current Condition Current Condition Evaluation Date 11/08/20 Treatment Diagnosis R hip fx s/p ORIF; difficulty in walking Onset Date 11/06/20 Weight Bearing Status Weight Bearing Status Partial Weight Bearing Allowed Weight Bearing Amount (enter % RLE: 50% PWB or #) (%) M3 PT-IP Subjective Start: 11/08/20 16:18 Freq: NEEDED Status: Active Protocol: Document 11/11/20 10:52 CLB (Rec: 11/11/20 11:18 CLB [id number]) Subjective Physical Therapy Visit Type Type Treatment Note Visit Start Time 10:52 Visit Stop Time 11:07 Total Visit Minutes 15 Notes present during tx. Number of DIGITAL CONTENT COORDINATOR Visits 3 Physical Therapy Visit Comments Patient Comments Pt tired and respectfully refused sit<>stand but agreed to seated ther ex. Therapy Pain Assessment Pain When Pain Assessed During Exercise Pain Present Pain Present Pain Reported Location Right Hip Intensity 5 Scale Used Numeric (0 - 10) Pain Behaviors Facial Grimacing,Guarding, Wincing Pain Management Techniques Apply Cold,Modification of Treatment,Timing of Activity with Medications M4 PT-IP Mobility and Gait Start: 11/08/20 16:18 Freq: NEEDED Status: Active Protocol: Document 11/10/20 10:38 CLB (Rec: 11/10/20 13:33 CLB [id number]) PT-Bed Mobility Assessment Supine to Sit Supine to Sit Total Assistance,2 Person Assistance,Head of Bed Elevated Sit to Supine Sit to Supine Total Assistance,2 Person Assistance Scooting Scooting to Edge of Bed Dependent Scooting Up and Down in Bed Dependent PT-Transfer Assessment Comments Mobility Comments Pt requiring AAROM for ther ex . Pt requiring Total assist to EOB, initially unable to sit on EOB due to poor trunk control with heavy lean to left. DIGITAL CONTENT COORDINATOR sat on bed cuing pt to touch DIGITAL CONTENT COORDINATOR shoulder with pt shoulder, pt rested elbow on DIGITAL CONTENT COORDINATOR and able to sit upright for ~10 minutes CGA. Once pt fatigued in sitting pt was returned to supine. Pt left in bed with alarm on and all needs within reach. Upon d/c pt will require stretcher as pt is unable at this time to sit in WC, informed Tanesha from . Gait Assessment Comments Gait Comments unable at this time M5 PT-IP Objective Assessments Start: 11/08/20 16:18 Freq: NEEDED Status: Active Protocol: Document 11/08/20 14:20 AB (Rec: 11/08/20 16:48 AB [id number]) Orientation Orientation/Cognition Level of Alertness Confusional State Safety Awareness Decreased Safety Awareness Gross Range of Motion Lower Extremity ROM Assessment Right Impaired Impairments pain limiting RLE movement Strength Comments Strength Comments unable to do MMT due to pt's difficulty following directions Other Assessments Other Other Assessments (+) trunk rigidity in flexion during standing M6 PT-IP Treatment Start: 11/08/20 16:18 Freq: NEEDED Status: Active Protocol: Document 11/11/20 10:52 CLB (Rec: 11/11/20 11:18 CLB [id number]) Physical Therapy Treatment Exercises Exercises Ankle Pumps,Quad Sets,Heel Slides,Supine Hip Abduction M7 PT-IP Assessment and Plan Start: 11/08/20 16:18 Freq: NEEDED Status: Active Protocol: Document 11/11/20 10:52 CLB (Rec: 11/11/20 11:18 CLB [id number]) PT Summary Assessment and Plan Potential Rehabilitation Potential Fair Status of Condition at Evaluation Evolving Summary Impairments Pain,ROM,Strength,Balance, Coordination,Sensation,Tone, Cognition,Bed Mobility, Transfers,Gait,Activity Tolerance Progress Towards Goals Slow Progress due to Medical Issues,Slow Progress due to Activity Tolerance Assessment Summary Pt fatigued after working with nursing having bath, rayne to BSC and then to chair. Pt refused sit<>stand training due to fatigue but agreed to ther ex in chair, pt w/o increased pain during ther ex requiring AAROM for HS and hip abduction. Goals Bed Mobility Goal Moderate Assistance Transfer Goal Moderate Assistance,Front Wheeled Walker Gait Goal Moderate Assistance,Front Wheel Walker Gait Distance 10 Days to Meet Goals 10 Frequency of Treatment Frequency Of Treatment Once a Day Treatment Plan Physical Therapy Treatment Plan Bed Mobility Training,Transfer Training,Gait Training, Therapeutic Exercise,Balance Retraining,Post Op Education, Discharge Planning,Hot or Cold Pack,Neuromuscular Re-ed, Coordination Retraining,Manual Therapy Other Recommendations and Next Treatment Bed mobility, ther ex, sit<> Focus stand if able. Reassess pt need for once or twice a day. Precautions Other Precautions RLE:PWB 50% Recommendations To Nursing Amount of Assist Needed Mechanical Lift Discharge Recommendations PT Discharge Recommendations SNF Rehab Transportation Needs at Discharge Stretcher/Ambulance
--- NOTE | 2020-11-11 11:14 | P.PN_ITS ---
Subjective Subjective Date Patient Seen: 11/11/20 Time Patient Seen: 09:00 Interval history: The pt this morning has no specific complaints or concerns. She reports that her pain was well controlled. She states that her breathing feels fine. Nursing has no specific concerns today. Exam Vital Signs (past 8 hours): - 11/11/20 04:00 11/11/20 08:00 11/11/20 09:14 Temperature 97.8 F Pulse Rate 75 Respiratory Rate 17 Blood Pressure 141/55 H Pulse Oximetry 97 97 93 Oxygen Delivery Method Nasal Cannula Oxygen Flow Rate 1.5 Narrative Exam Narrative: General: No acute distress, sitting comfortably in bed, cachectic, chronically ill-appearing CV: Regular rate and rhythm, grade 4/6 systolic murmur Respiratory: Coarse crackles bilateral bases, upper airways clear, no wheezing, decreased air movement throughout Abdomen: Soft, nondistended, non tender, normoactive bowel sounds Extremities: No edema Objective Labs Result Diagrams: 11/11/20 05:00 11/09/20 05:26 Labs: Laboratory Results - last 24 hr 11/11/20 05:00 WBC 5.4 RBC 2.57 L Hgb 8.1 L Hct 24.0 L MCV 93.3 MCH 31.5 MCHC 33.8 RDW 14.4 Plt Count 117 L Neut % (Auto) 76.3 H Lymph % (Auto) 15.8 L [place] % (Auto) 4.5 Eos % (Auto) 3.1 Baso % (Auto) 0.3 Neut # (Auto) 4100 Lymph # (Auto) 800 L [place] # (Auto) 200 Eos # (Auto) 200 Baso # (Auto) 0 PFSH Medical History Aspiration, chronic pulmonary Dysphagia, neurologic Mild intermittent asthma without complication (01/18/11) Osteoporosis (01/18/11) Parkinson's disease (01/18/11) Surgical History History of surgery Status post hysterectomy with oophorectomy Social History household members: spouse Smoking Status: Never smoker alcohol intake: never Assessment & Plan Assessment & Plan narrative: Pt is a 75 year old woman with Parkinson's disease, asthma, osteoporosis, depression, HTN, and history of left hip hemiarthroplasty due to fracture who presented after mechanical ground-level fall at home. Found to have right intertrochanteric fracture. 1) Right hip fracture: POD #4 s/p closed reduction placement a long cephalomedullary nail. Pain adequately controlled - Ortho consulted, appreciate recommendations and care - Continue Oxycodone PRN for pain - Start Dulcolax as pt without recent BM 2) Aspiration pneumonia: Pt with increasing oxygen demand and crackles on exam. Low grade temperature yesterday morning. CXR wtih likely consolidation. Pt high risk of aspiration at baseline. O2 requirement has decreased since starting antibiotics. - Continue Cefuroxime, currently day 2 - Continue working with speech therapy - Continue to discuss ongoing goals of care with the pts . He was given a lot of information yesterday by the palliative care team. Plan to contact him again tomorrow to discuss further, after having more time to process. They are considering PEG tube, however if continues oral feeds this does not eliminate aspiration risk. 2) Acute blood loss anemia on chronic anemia: s/p 3 units PRBCs total. H/H stable. - Continue to trend 2) Parkinson's disease: - Continue home Carbidopa-Levodopa, Donepezil, Methylphenidate, Trihexyphenidyl - Continue Clonazepam at night to help with spasticity 3) Depression/Anxiety: - Continue home Venlafaxine - Continue Lorazepam PRN 4) HTN: - Continue home Metoprolol FEN: Dysphagia diet. DVT PPx: SCDs Code: After discussion with palliative care team, transitioned to DNR status yesterday evening Dispo: Pt will require d/c to SNF. Has bed at [facility]. Only has worked with PT once yesterday thus far postoperatively. Pending improvement in respiratory status, continued elucidation of goals of care.
[2020-11-11] MEDS: CARBIDOPA-LEVODOPA 10/100 TABLET 1 EACH PO (14:42)
[2020-11-11] MEDS: VENLAFAXINE ER 75 MG CAP PO (21:24)
[2020-11-11] MEDS: METOPROLOL ER 25 MG TABLET PO (21:24)
[2020-11-11] MEDS: DONEPEZIL 5 MG TABLET 10 MG PO (21:24)
[2020-11-11] MEDS: clonazePAM 0.5 MG TABLET 1.5 MG PO (21:24)
[2020-11-12] VITALS (14 sets, daily range): BP systolic 136–150; BP diastolic 58–73; PULSE 77–86; RESP 14–18; TEMP 36.4–36.6; O2SAT 92–98
[2020-11-12] MEDS: SODIUM CHLORIDE 0.9% FLUSH 10 ML IV ×2 (00:28→08:54)
[2020-11-12] MEDS: BUDESONIDE 0.5 MG/2 ML NEB INH ×2 (08:33→20:52)
[2020-11-12] MEDS: ALBUTEROL 2.5 MG/3 ML NEB (ADULT) INH ×3 (08:33→20:52)
[2020-11-12] MEDS: ACETAMINOPHEN 325 MG TABLET 975 MG PO ×3 (08:54→21:11)
[2020-11-12] MEDS: TRIHEXYPHENIDYL 2 MG 2 EACH PO ×3 (08:54→21:13)
[2020-11-12] MEDS: ASPIRIN EC 81 MG TABLET PO ×2 (08:54→21:12)
[2020-11-12] MEDS: CARBIDOPA-LEVODOPA 10/100 TABLET 2 EACH PO ×2 (08:58→11:46)
[2020-11-12] MEDS: BISACODYL 10 MG SUPP PR (08:58)
[2020-11-12 09:19] LABS: Hematocrit 25.7 % (36-46); Hemoglobin 8.4 g/dL (12.0-16.0)
--- NOTE | 2020-11-12 10:28 | PT.IPTN ---
Current Diagnoses Displaced intertrochanteric fracture of right femur, initial encounter for closed fracture (11/06/20) Surgery Performed Operation Date: 11/07/20 17:00 Actual Procedures p Cephalomedullary Nailing Femur(Right) - Coleman Amaya MD Physical Therapy Treatment Note M2 PT-IP Current Condition Start: 11/08/20 16:18 Freq: NEEDED Status: Active Protocol: Document 11/08/20 14:20 AB (Rec: 11/08/20 16:48 AB [id number]) Physical Therapy Current Condition Current Condition Evaluation Date 11/08/20 Treatment Diagnosis R hip fx s/p ORIF; difficulty in walking Onset Date 11/06/20 Weight Bearing Status Weight Bearing Status Partial Weight Bearing Allowed Weight Bearing Amount (enter % RLE: 50% PWB or #) (%) M3 PT-IP Subjective Start: 11/08/20 16:18 Freq: NEEDED Status: Active Protocol: Document 11/12/20 10:28 AW (Rec: 11/12/20 11:43 AW [id number]) Subjective Physical Therapy Visit Type Type Treatment Note Visit Start Time 09:16 Visit Stop Time 10:28 Total Visit Minutes 40 Notes Split visits [id number] and [id number] to allow for RN to administer suppository. Number of HIGH SCHOOL MUSIC INSTRUCTOR Visits 0 Physical Therapy Visit Comments Patient Comments Pt needs to use the commode. Therapy Pain Assessment Pain When Pain Assessed During Mobility Pain Present Pain Present Pain Reported Location Right Hip Scale Used not quantified Pain Management Techniques Apply Cold,Modification of Treatment,Timing of Activity with Medications M4 PT-IP Mobility and Gait Start: 11/08/20 16:18 Freq: NEEDED Status: Active Protocol: Document 11/12/20 10:28 AW (Rec: 11/12/20 11:43 AW [id number]) PT-Bed Mobility Assessment Supine to Sit Supine to Sit Total Assistance,2 Person Assistance,Head of Bed Elevated Scooting Scooting to Edge of Bed Dependent PT-Transfer Assessment Sit to and From Stand Sit to and from Stand Total Assistance,2 Person Assistance,Use of Upper Extremities Equipment Transfer Assistive Device Gait Belt Orthotic/Prosthetic Devices or Brace: No Transfers Transfer Destination Chair,Bedside Commode Transfer Technique Squat Pivot Transfer Ability Level of Assist Maximum Assistance,Total Assistance,2 Person Assistance ,Use of Upper Extremities Comments Mobility Comments Pt was sitting up in bed as PT arrived. Began session with heel slides - PROM and AAROM. At that time, RN arrived to give suppository. PT departed for AM rounds and returned to find pt requesting to use the commode. She needed max to total assist x 2 for supine to sit with HOB elevated. She sat EOB ~60 seconds with CGA for balance. Need for commode was urgent, so PT provided max assist for squat pivot transfer to [facility] and SALVAGE MACHINE OPERATOR assisted from behind. Pt sat on the commode using B armrests for support as she moved her bowels. RN arrived to assist with pericare. PT provided total assist for pt to stand with FWW as RN completed pericare. Pt unable to fully extend, standing with rigidly flexed trunk and unable to get her weight over her BRADEN. Pt sat again on the commode in preparation for squat pivot transfer to the bedside chair set up on her left side. Transfer required max 2PA. Pt was positioned on the chair with RLE elevated and fresh ice applied to right hip. Call light and tray table were within reach. Gait Assessment Comments Gait Comments Pt unable at this time PT-Balance Assessment Sitting Balance and Reactions Static Sitting Balance Ability Fair Dynamic Sitting Balance Ability Poor Standing Balance and Reactions Static Standing Balance Ability Poor Dynamic Standing Balance Ability Poor Device Used FWW Comments Other Balance Tests/Deviations/Treatment Pt able to sit EOB with CGA. : M5 PT-IP Objective Assessments Start: 11/08/20 16:18 Freq: NEEDED Status: Active Protocol: Document 11/08/20 14:20 AB (Rec: 11/08/20 16:48 AB [id number]) Orientation Orientation/Cognition Level of Alertness Confusional State Safety Awareness Decreased Safety Awareness Gross Range of Motion Lower Extremity ROM Assessment Right Impaired Impairments pain limiting RLE movement Strength Comments Strength Comments unable to do MMT due to pt's difficulty following directions Other Assessments Other Other Assessments (+) trunk rigidity in flexion during standing M6 PT-IP Treatment Start: 11/08/20 16:18 Freq: NEEDED Status: Active Protocol: Document 11/12/20 10:28 AW (Rec: 11/12/20 11:43 AW [id number]) Physical Therapy Treatment Exercises Exercises Quad Sets,Heel Slides M7 PT-IP Assessment and Plan Start: 11/08/20 16:18 Freq: NEEDED Status: Active Protocol: Document 11/12/20 10:28 AW (Rec: 11/12/20 11:43 AW [id number]) PT Summary Assessment and Plan Potential Rehabilitation Potential Fair Status of Condition at Evaluation Evolving Summary Impairments Pain,ROM,Strength,Balance, Coordination,Sensation,Tone, Cognition,Bed Mobility, Transfers,Gait,Activity Tolerance Progress Towards Goals Slow Progress due to Medical Issues,Slow Progress due to Activity Tolerance Assessment Summary Pt has poor activity tolerance and continues to required max to total assist x 2 for safe bed mobility and transfers. Pt only able to tolerate one PT session per day at this time. She will need SNF rehab to improve strength and mobility independence. Goals Bed Mobility Goal Moderate Assistance Transfer Goal Moderate Assistance,Front Wheeled Walker Gait Goal Moderate Assistance,Front Wheel Walker Gait Distance 10 Days to Meet Goals 10 Frequency of Treatment Frequency Of Treatment Once a Day Treatment Plan Physical Therapy Treatment Plan Bed Mobility Training,Transfer Training,Gait Training, Therapeutic Exercise,Balance Retraining,Post Op Education, Discharge Planning,Hot or Cold Pack,Neuromuscular Re-ed, Coordination Retraining,Manual Therapy Other Recommendations and Next Treatment Bed mobility, ther ex, sit<> Focus stand if able. Precautions Other Precautions RLE:PWB 50% Recommendations To Nursing Amount of Assist Needed Mechanical Lift Discharge Recommendations PT Discharge Recommendations SNF Rehab Transportation Needs at Discharge Stretcher/Ambulance
[2020-11-12] MEDS: OXYCODONE IR 5 MG TABLET PO ×2 (10:32→17:04)
--- NOTE | 2020-11-12 11:40 | P.PN_ITS ---
Subjective Subjective Date Patient Seen: 11/12/20 Time Patient Seen: 09:15 Interval history: The pt this morning again reports that her breathing feels fine. She states that she has significant hip pain with any movement of the leg, but when still denies any pain. She overall has no specific concerns today. As per nursing, the pt has still not had a BM yet. Exam Vital Signs (past 8 hours): - 11/12/20 03:59 11/12/20 04:00 11/12/20 07:40 Temperature 97.9 F 97.5 F L Pulse Rate 77 78 Respiratory Rate 16 16 Blood Pressure 136/63 148/73 H Pulse Oximetry 98 98 95 11/12/20 08:00 11/12/20 08:33 11/12/20 08:39 Temperature Pulse Rate 80 80 Respiratory Rate 14 14 Blood Pressure Pulse Oximetry 92 95 95 Oxygen Delivery Method Nasal Cannula Oxygen Flow Rate 1 Narrative Exam Narrative: General: No acute distress, sitting comfortably in bed, cach ectic, chronically ill-appearing CV: Regular rate and rhythm, grade 4/6 systolic murmur Respiratory: Coarse crackles bilateral bases improved slightly from yesterday, upper airways clear, no wheezing, air movement improved Abdomen: Soft, nondistended, non tender, normoactive bowel sounds Extremities: No edema Objective Labs Result Diagrams: 11/12/20 09:12 11/09/20 05:26 Labs: Laboratory Results - last 24 hr 11/12/20 09:12 Hgb 8.4 L Hct 25.7 L PFSH Medical History Aspiration, chronic pulmonary Dysphagia, neurologic Mild intermittent asthma without complication (01/18/11) Osteoporosis (01/18/11) Parkinson's disease (01/18/11) Surgical History History of surgery Status post hysterectomy with oophorectomy Social History household members: spouse Smoking Status: Never smoker alcohol intake: never Assessment & Plan Assessment & Plan narrative: Pt is a 75 year old woman with Parkinson's disease, asthma, osteoporosis, depression, HTN, and history of left hip hemiarthroplasty due to fracture who presented after mechanical ground-level fall at home. Found to have right intertrochanteric fracture. 1) Right hip fracture: POD #5 s/p closed reduction placement a long cephalomedullary nail. Pain adequately controlled - Ortho consulted, appreciate recommendations and care - Continue Oxycodone PRN for pain - Continue Dulcolax as pt without recent BM, this was reportedly not given last night 2) Aspiration pneumonia: Pt with increasing oxygen demand 6/18 and crackles on exam. CXR wtih likely consolidation. Pt high risk of aspiration at baseline. O2 requirement has continued to decrease since starting antibiotics. - Continue Cefuroxime, currently day 3 - Continue working with speech therapy - Discussed ongoing care with the pts today. He states that the pt does not really want a PEG tube, but would consider it in the future if it became absolutely necessary. Discussed ongoing aspiration, which they are aware of. He feels that she is aspirating on her saliva regularly anyway, so oral intake doesn't really change that very much. This will need ongoing discussion over time. As for now, will not plan on any surgical intervention. 2) Acute blood loss anemia on chronic anemia: s/p 3 units PRBCs total. H/H stable. 2) Parkinson's disease: - Continue home Carbidopa-Levodopa, Donepezil, Methylphenidate, Trihexyphenidyl - Continue Clonazepam at night to help with spasticity 3) Depression/Anxiety: - Continue home Venlafaxine - Continue Lorazepam PRN 4) HTN: - Continue home Metoprolol FEN: Dysphagia diet. DVT PPx: SCDs Code: After discussion with palliative care team, transitioned to DNR status Dispo: Pt will require d/c to SNF. Has bed at [facility]. Has worked with PT a limited amount postoperatively thus far. Pending continued improvement in respiratory status. Anticipate d/c potentially tomorrow but more likely the day after.
--- NOTE | 2020-11-12 13:02 | PC.NURSE ---
Patient VSS, still on 1 liter O2 at 92-94%. Rectal suppository Bisocodyl given this AM, patient was up to bedside commode and had moderate sized BM. Patient denied pain this AM, when pivoted to the chair she was grimacing and bracing herself, PRN Oxycodone given per EMAR. Patient said/FLACCA scale determined that medication was effective. Patient was up in the chair and tolerated for about 1hr. Patient was helped back to bed w/ Pivot assist for lunch. is by bedside and helping with 1:1 feeding and patient needs intermittent suctioning at times. Dressing on right leg CDI, Aquacel has sanguineous drainage.
--- NOTE | 2020-11-12 13:27 | CM.DPC ---
DCP Cont: Per MD, after Pall Care Consult and further discussion with pt and spouse decision made to not attempt PEG placement at this time and they are aware that pt is aspirating at this time likely even on her saliva. Pt still quite weak and unable to hold trunk position for long and therefore will still need BLS transport at d/c to [facility] SNF. Per MD, pt likely may be stable for d/c to SNF in 1-2 days pending her pneumonia and respirations. Plan: SW to follow closely for ongoing plan of [facility] SNF at d/c for ongoing strengthening prior to return to home with pending pt's progress. NADIRA Cameron
[2020-11-12] MEDS: CARBIDOPA-LEVODOPA 10/100 TABLET 1 EACH PO (14:38)
[2020-11-12] MEDS: LORazepam 1 MG TABLET PO (17:04)
[2020-11-12] MEDS: clonazePAM 0.5 MG TABLET 1.5 MG PO (21:11)
[2020-11-12] MEDS: VENLAFAXINE ER 75 MG CAP PO (21:11)
[2020-11-12] MEDS: DONEPEZIL 5 MG TABLET 10 MG PO (21:11)
[2020-11-12] MEDS: METOPROLOL ER 25 MG TABLET PO (21:12)
[2020-11-13] VITALS: O2SAT 97
[2020-11-13] MEDS: SODIUM CHLORIDE 0.9% 250 ML 21 ML IV (00:12)
[2020-11-13] MEDS: SODIUM CHLORIDE 0.9% FLUSH 10 ML IV ×2 (00:17→08:52)
[2020-11-13 06:24] VITALS: O2SAT 96
[2020-11-13 08:00] VITALS: BP 154/68; PULSE 76; RESP 18; TEMP 36.6; O2SAT 96
--- NOTE | 2020-11-13 08:13 | P.DS_ITS ---
History of Present Illness History of Present Illness Date Patient Seen: 11/13/20 Time Patient Seen: 08:13 Chief complaint: Fall/ rt leg injury Narrative: Pt is a 75 year old woman with Parkinson's disease, asthma, osteoporosis, depression, and history of left hip hemiarthroplasty due to fracture who presented after fall at home. The pt reports that she stood from a chair, turned and took a few steps, felt like the room was spinning slightly, and fell to the ground. She immediately had right groin pain. EMS was contacted, and she was brought to the ED for evaluation. The pt denies any associated chest pain, SOB. She had been feeling well prior to the incident. As per the pts , she at baseline has extremely limited mobility. She is working with rehab, and they continue to encourage her to move, but she doesn't listen to instructions well to keep her from moving independently. {from Dr. Chin's H&P 11/07/20} Discharge Providers Provider Date of admission: 11/06/20 19:37 Discharge Date: 11/13/20 Primary care physician: Hudson Mcmanus MD Consults: 11/06/20 19:21 Consult to Orthopedic Surgery Stat Comment: Consulting Provider: Coleman Amaya Reason for consultation: right hip fracture Has provider been notified: Yes 11/07/20 20:34 Consult to Discharge Planning Routine Comment: Consult to Physical Therapy Evaluate & Treat Comment: Physician Instructions: Evaluate and Treat Consult to Respiratory Therapy Evaluate & Treat Comment: Physician Instructions: Evaluate and treat 11/08/20 02:03 Consult to Speech Therapy Evaluate & Treat Comment: Physician Instructions: Evaluate and treat 11/08/20 08:33 Consult to Speech Therapy Evaluate & Treat Comment: for swallow eval Physician Instructions: Evaluate and treat 11/08/20 11:36 Consult to Occupational Therapy Evaluate & Treat Comment: Physician Instructions: Evaluate and treat 11/09/20 12:27 Consult to Palliative Care Routine Comment: End Stage Parkinsonism Consulting Provider: Shyanne Locke Discharge provider: Hudson Mcmanus MD Summary Hospital Course Discharge Diagnosis: 1. Closed right hip fracture 2. Status post ORIF right hip fracture 3. Dysphagia with aspiration due to neurologic disorder 4. Aspiration pneumonia 5. Acute respiratory failure, with hypoxia, due to aspiration pneumonia 6. Parkinson's disease 7. Mild intermittent asthma without complication, not active this hospitalization 8. Acute blood loss anemia status post ORIF right hip fracture surgery Hospital Course: Patient was admitted to the hospital after presenting with her hip fracture. She underwent surgical intervention to repair her fracture and began with postoperative therapies etcetera. She had no obvious complications. She did have some postoperative anemia which is corrected with transfusion of red blood cells and counts remained stable. She will need continued skilled therapies for rehabilitation and given her underlying comorbidities will be discharged to nursing home for continued rehabilitation. Patient had increased difficulty swallowing immediately postoperatively. She was clearly aspirating. She was initially placed NPO and after discussion and confirming that she really did not want a feeding to she was released to a dysphagia diet. She did show evidence of aspiration pneumonia with an increased oxygen requirement, hypoxia, as well as findings on chest x-ray. She was started on parental antibiotics and will complete a 10 day course of antibiotics as an outpatient with oral antibiotics. Her swallowing did improve significantly after the immediate postoperative period although certainly not back to normal. Discussion was held with patient and her spouse both by myself as well as covering physicians as well as palliative care nurse practitioner. Is not clear really what patient's goals are at this point. She clearly that the end-stage her parkinsonism and will likely have increased difficulty swallowing. Previously she had not wanted any sort of artificial intervention for feeding which is basically how she still feels. Spouse is more ambivalent about whether not she would benefit from long-term feeding. Fortunately at this time her swallow appears to improved enough that she can maintain adequate oral nutrition and feeding tube is not imminently necessary to preserve her life at this point. Therefore no PEG tube was placed and this is still a question that is as yet on answer as to whether this would be a long-term solution should she decline further and not improve as she seems to have done this time. Status at Discharge Cognitive/behavioral status at discharge: at baseline, oriented Functional status at discharge: bed bound Overall status at discharge: patient is progressing back to baseline Time Spent with Patient Time spent: Greater than 30 minutes Exam Vital Signs (past 8 hours): - 11/13/20 06:24 Pulse Oximetry 96 Fraction of Inspired Oxygen 24 Oxygen Delivery Method Nasal Cannula Oxygen Flow Rate 1 Objective Labs Result Diagrams: 11/12/20 09:12 11/09/20 05:26 Labs: Laboratory Results - last 24 hr 11/12/20 09:12 Hgb 8.4 L Hct 25.7 L [facility] Medical History Aspiration, chronic pulmonary Dysphagia, neurologic Mild intermittent asthma without complication (01/18/11) Osteoporosis (01/18/11) Parkinson's disease (01/18/11) Surgical History History of surgery Status post hysterectomy with oophorectomy Social History household members: spouse Smoking Status: Never smoker alcohol intake: never Discharge Assessment & Plan Assessment and Plan Plan of Treatment: Patient will be discharged to nursing home to continue her postoperative rehabilitation She also benefit from ongoing speech therapy to help with her dysphagia and prevent further aspiration Patient should also have continued conversations with care management staff regarding goals of care both in the short term as she recovers from this hospitalization surgery as well as long-term given the progression of her neurologic disease as above etcetera Discharge Plan Discharge Plan Patient Disposition: SNF Transfer to: [facility] Under care of provider: [facility] Medical Staff Consult as needed: Dental, Hearing, Mental health, Podiatry and Vision Discharge orders & Medications Prescriptions: New oxycodone 5 mg Tablet 5 mg PO Q3HR PRN (Reason: Pain, Moderate (4-6)) Qty: 30 RF: 0 fluticasone propion-salmeterol 250-50 mcg/dose blister with device 1 inh inhalation BID Qty: 60 RF: 0 albuterol sulfate 90 mcg/actuation HFA aerosol inhaler 2 puff inhalation Q4-6H PRN (Reason: shortness of breath or wheezing) Qty: 18 RF: 0 cefuroxime axetil 500 mg tablet 500 mg PO BID 7 Days Qty: 14 RF: 0 Continued aspirin [Adult Aspirin Regimen] 81 mg tablet,delayed release (DR/EC) 81 mg PO DAILY RF: 0 donepezil [Aricept] 10 MG tablet 10 mg PO QDAY Qty: 0 RF: 0 (DME) Disabled Parking Qty: 1 RF: 0 trihexyphenidyl 2 mg tablet 2 mg PO TID RF: 0 metoprolol succinate 25 mg tablet extended release 24 hr 25 mg PO DAILY Qty: 90 RF: 3 venlafaxine 75 mg capsule,extended release 24hr 75 mg PO BEDTIME Qty: 90 RF: 0 carbidopa-levodopa 10-100 mg tablet 5 tab PO DIRECTED RF: 0 trihexyphenidyl 2 mg Tablet 2 mg PO PRN PRN (Reason: dystonia) RF: 0 fluticasone propion-salmeterol [Advair Diskus] 250-50 mcg/dose Blister With Device 2 inh INHALATION DAILY RF: 0 clonazepam 0.5 mg tablet 1.5 mg PO BEDTIME Qty: 45 RF: 0 Changed lorazepam 1 mg tablet 1 mg PO QD-BID PRN (Reason: agitation/anxiety) Qty: 30 RF: 0 Discontinued oxycodone-acetaminophen [Percocet] 5-325 mg tablet 1 tab PO Q4HP PRN (Reason: pain) Qty: 90 RF: 0 Follow up/Referrals: Hudson Mcmanus MD [Primary Care Provider] - Discharge Health Status Multidrug resistant organism: No MDRO Precautions: [place] Diet/Activity/Treatments Diet: Diet as Tolerated Liquid consistency: Normal/Thin Food texture: Blenderized or pureed Diet comment: dysphagia diet 1:1 feeding Activity: as per Dr. Monique Doyle, post hip fx Skin/Wound/Dressing Care Report to your healthcare provider any signs of infection, such as:: chills, fever Special Rehabilitation Services Reason for rehabilitation: Post-operative therapy Rehab type: Physical therapy, Occupational therapy and Speech therapy Discharge Data Primary Care Provider: Hudson Mcmanus
[2020-11-13] MEDS: CARBIDOPA-LEVODOPA 10/100 TABLET 2 EACH PO ×2 (08:30→12:02)
[2020-11-13] MEDS: ASPIRIN EC 81 MG TABLET PO (08:31)
[2020-11-13] MEDS: TRIHEXYPHENIDYL 2 MG 2 EACH PO (08:31)
[2020-11-13] MEDS: ACETAMINOPHEN 325 MG TABLET 975 MG PO (08:32)
[2020-11-13] MEDS: BUDESONIDE 0.5 MG/2 ML NEB INH (09:17)
[2020-11-13] MEDS: ALBUTEROL 2.5 MG/3 ML NEB (ADULT) INH (09:17)
[2020-11-13 09:22] VITALS: PULSE 88; RESP 16; O2SAT 96
[2020-11-13 09:25] VITALS: RESP 16; O2SAT 86
[2020-11-13 09:26] VITALS: PULSE 80; RESP 16; O2SAT 97
--- NOTE | 2020-11-13 09:30 | CM.DPNOTE ---
Called [facility] to turkey picker pt. to transport to [facility] and spoke to Mesha (Li's req.). They will be here at noon. Did let them know pt. has patel and O2 at 1 L. LIBRA Averyt.
[2020-11-13 09:56] LABS: COVID19 -Nasal RAPID Negative (Negative)
--- NOTE | 2020-11-13 10:05 | OT.IPNOTE ---
Chart reviewed and consulted CM and Alex. Pt with poor endurance and planned for transfer to SNF at noon today. Will hold therapy at this time to maintain energy for transfer and therapies at SNF.
--- NOTE | 2020-11-13 10:30 | PT-IP ANOTE ---
Anticipating noon discharge to SNF and subsequent therapies at rehab facility, PT holding treatment to conserve energy in the setting of severely limited activity tolerance.
[2020-11-13] MEDS: OXYCODONE IR 5 MG TABLET PO (12:01)
--- NOTE | 2020-11-13 12:04 | CM.DPC ---
DCP continued: Reviewed chart. Orders received for patient to d/c to SNF today. Per notes current plan is for patient to d/c to [facility]. Placed call to October at facility and she confirms that they can accept today. [employer] asked that [employer] ATTENDANT fax d/c information to [facility]. Therapy reports patient will need non urgent BLS transport secondary to hip precautions. Non urgent BLS form completed and copy of Important Message from Medicare given to patient and spouse at bedside. All in agreement to d/c plan today. NEFTALY/Shanique to call and arrange transport. P: [facility] today. NADIRA Pena
== END 2020-11-13 12:16 | DRG 480 ==
LOC: ED 19:26 → AC 19:38
PROVIDERS: Orthopaedic Surgery Adult Reconstructive Orthopaedic Surgery; Admitting Provider Family Medicine; Emergency Provider Emergency Medicine; PCP Internal Medicine; Referring Provider Emergency Medicine; Visit Provider Internal Medicine
PROC: 0QS606Z Reposition Right Upper Femur with Intramedullary Internal Fixation Device, Open Approach (ICD-10-PCS; CPT 27245; principal; 2020-11-07 17:00)
DX: S72.141A Displaced intertrochanteric fracture of right femur, initial encounter for closed fracture (principal); J69.0 Pneumonitis due to inhalation of food and vomit; J96.01 Acute respiratory failure with hypoxia; D62 Acute posthemorrhagic anemia; R64 Cachexia; Y92.009 Unspecified place in unspecified non-institutional (private) residence as the place of occurrence of the external cause; G20 Parkinson's disease; F32.9 Major depressive disorder, single episode, unspecified; F41.9 Anxiety disorder, unspecified; I10 Essential (primary) hypertension; Z96.642 Presence of left artificial hip joint; W18.30XA Fall on same level, unspecified, initial encounter; Z20.822 Contact with and (suspected) exposure to COVID-19; Z91.81 History of falling; Z68.23 Body mass index [BMI] 23.0-23.9, adult
CPT/HCPCS: 36415; 36430; 51702; 64450; 71045; 72192; 73502; 73503; 76000; 80048; 85014; 85018; 85025; 85027; 86850; 86900; 86901; 87635; 92526; 92610; 94640; 94760; 96361; 96374; 97110; 97162; 97166; 97530; 99222; 99232; 99238; 99284; 99497; C9803; P9016; J0171; J0330; J0690; J0697; J1100; J1170; J2270; J2274; J2405; J2704; J7613

== ENCOUNTER → 2020-11-22 10:56 | Outpatient (CLI) | payer MEDICARE, SELFPAY ==
[2020-11-06 21:17] VITALS: BMI 23.5
--- NOTE | 2020-11-22 | DI.RAD.S_ITS ---
PROCEDURE: XR FEMUR RT MIN 2V INDICATIONS: Other specified disorders of bone, thigh TECHNIQUE: 4 views of the femur were acquired. COMPARISON: [facility], CR, XR FEMUR LT MIN 2V, 08/19/2019, 16:16. FINDINGS: Bones: Expected postoperative alignment, status post surgical fixation of the right femur with IM rosangela and dynamic screws. Moderate right knee joint degeneration incidentally noted. Soft tissues: Overlying postsurgical soft tissue changes. IMPRESSION: Expected alignment. Dictated by: Gerardo Cordero M.D. on 11/22/2020 at 13:57 Approved by: Gerardo Cordero M.D. on 11/22/2020 at 13:58
--- NOTE | 2020-11-22 | DI.RAD.S_ITS ---
PROCEDURE: XR PELVIS 1-2V INDICATIONS: Other specified disorders of bone, thigh TECHNIQUE: 2 view(s) of the pelvis acquired. COMPARISON: [facility], CR, XR HIP W PEL IF DONE RT 2V, 11/06/2020, 18:44. [facility], CR, XR HIP W PEL IF DONE RT 4V, 11/07/2020, 16:45. [facility], CR, XR FEMUR RT MIN 2V, 11/22/2020, 11:11. [facility], CR, PELVIS WITH BILATERAL HIPS, 04/14/2015, 10:16. FINDINGS: Bones: Stable appearance of left hip arthroplasty. Interval ORIF of right intertrochanteric hip fracture with placement of femoral intramedullary rosangela and 2 proximal fixation screws traversing the femoral head neck. Medially avulsed lesser trochanteric bone fragment again seen. Soft tissues: Visualized bowel gas pattern is normal. No suspicious soft tissue calcifications. IMPRESSION: 1. Improved alignment status post ORIF of right intertrochanteric hip fracture. Dictated by: Gerardo Cordero M.D. on 11/22/2020 at 14:01 Transcribed by: KATHY on 11/22/2020 at 15:18 Approved by: Floyd Chavez M.D. on 11/22/2020 at 18:02
== END ==
PROVIDERS: PCP Internal Medicine; Referring Provider Orthopaedic Surgery Adult Reconstructive Orthopaedic Surgery; Visit Provider Orthopaedic Surgery Adult Reconstructive Orthopaedic Surgery
DX: M89.8X5 Other specified disorders of bone, thigh (principal); S72.091D Other fracture of head and neck of right femur, subsequent encounter for closed fracture with routine healing; M25.551 Pain in right hip; M17.11 Unilateral primary osteoarthritis, right knee; Z96.642 Presence of left artificial hip joint
CPT/HCPCS: 72170; 73552

== ENCOUNTER → 2020-11-28 09:03 | Outpatient (CLI) | payer MEDICARE, SELFPAY ==
[2020-11-06 21:17] VITALS: BMI 23.5
--- NOTE | 2020-11-28 09:08 | DI.RAD.S_ITS ---
PROCEDURE: XR CHEST 2V INDICATIONS: PNEUMONIA TECHNIQUE: 2 views of the chest were acquired. COMPARISON: [facility], CR, XR CHEST 2V, 01/26/2020, 17:29. [facility], CR, XR CHEST 1V, 11/10/2020, 8:20. FINDINGS: Surgical changes and devices: Bilateral pulse generators as before. Lungs and pleura: No pleural effusions or pneumothorax. Right basilar consolidation which is grossly unchanged. Retrocardiac opacity appears improved since the prior study. Mediastinum: Mediastinal contours are normal. Heart size is normal. Bones and chest wall: No suspicious bony abnormalities. Soft tissues appear unremarkable. IMPRESSION: Improved aeration of the retrocardiac left lower lobe since 11/10/20. Dictated by: Gerardo Cordero M.D. on 11/28/2020 at 10:50 Approved by: Gerardo Cordero M.D. on 11/28/2020 at 10:51
== END ==
PROVIDERS: PCP Internal Medicine; Referring Provider Nurse Practitioner; Visit Provider Nurse Practitioner
DX: J69.0 Pneumonitis due to inhalation of food and vomit (principal)
CPT/HCPCS: 71046

== ENCOUNTER → 2020-12-13 15:00 | Outpatient (CLI) | payer MEDICARE, SELFPAY ==
[2020-11-06 21:17] VITALS: BMI 23.5
--- NOTE | 2020-12-13 | DI.RAD.S_ITS ---
PROCEDURE: XR CHEST 2V INDICATIONS: Pneumonitis due to inhalation of food and vomit TECHNIQUE: 2 views of the chest were acquired. COMPARISON: [facility], CR, XR CHEST 2V, 11/28/2020, 9:12. FINDINGS: Surgical changes and devices: Bilateral deep brain stimulator devices. Lungs and pleura: Minimal bibasilar atelectasis. No pleural effusions or pneumothorax. Mediastinum: Mediastinal contours are normal. Heart size is normal. Bones and chest wall: No suspicious bony abnormalities. Soft tissues appear unremarkable. IMPRESSION: Minimal bibasilar atelectasis. Dictated by: Ming Welsh M.D. on 12/13/2020 at 15:19 Approved by: Ming Welsh M.D. on 12/13/2020 at 15:21
== END ==
PROVIDERS: PCP Internal Medicine; Referring Provider Nurse Practitioner; Visit Provider Nurse Practitioner
DX: J69.0 Pneumonitis due to inhalation of food and vomit (principal); J98.11 Atelectasis
CPT/HCPCS: 71046

== ENCOUNTER 2021-06-29 13:45 | Outpatient (RCR) | payer MEDICARE, SELFPAY ==
[2020-11-06 21:17] VITALS: BMI 23.5
--- NOTE | 2021-04-13 15:34 | PT.OIE ---
Current Diagnoses Parkinson's disease (04/13/21) Pain in unspecified hip (04/13/21) Other abnormalities of gait and mobility (04/13/21) History of falling (04/13/21) Past Medical History (Last Updated 01/19/21 @ 11:36 by Hudson Mcmanus MD) Aspiration, chronic pulmonary Dysphagia, neurologic History of surgery Mild cognitive impairment Mild intermittent asthma without complication (01/18/11) Osteoporosis (01/18/11) Parkinson's disease (01/18/11) Past Surgical History (Last Reviewed 11/13/20 @ 08:19 by Hudson Mcmanus MD) History of surgery Status post hysterectomy with oophorectomy Visit Care Team Role Provider Type Hudson Mcmanus MD Attending Provider Physician Family Provider Primary Care Provider Referring Provider Specialty: Internal Medicine Address: [address] [place] [address], [address], [facility] Email: [email or web address] Physical Therapy Initial Evaluation PT-OP-A Visit Information Start: 04/13/21 07:31 Freq: Status: Active Protocol: Document 04/13/21 09:45 AMB (Rec: 04/13/21 11:57 AMB [email or web address]) Out-Patient Physical Therapy Visit Information Visit Information Visit Type Initial Evaluation Visit Start Time 09:45 Visit Stop Time 10:30 Total Visit Minutes 45 Visit Number 1 PT-OP-B Current Condition Start: 04/13/21 07:31 Freq: Status: Active Protocol: Document 04/13/21 09:46 AMB (Rec: 04/13/21 10:25 AMB [id number]) Current Condition History of Current Condition Onset Date 11/06/20 Current Complaints Advanced Parkinsons History of Current Condition Sy attends physical therapy after fracturing her R hip in a fall in October. She then went to rehab and has been having home health. She is accompanied by her Oh. He states that his goal for her is strengthening. He does report one fall at the care center, but no falls since returning home. She did have a L hip fracture about 10 years ago and that continues to bother her. Pain is about the same as previous bout of physical therapy. She fell and fractured her right hip when she stood up alone and Oh was outside. Treatment Goals Patient/Caregiver Goals Strengthen legs, decrease fall risk Personal Factors Other Personal Factors That May Effect Advanced Parkinsons, Therapy/Recovery reports she has been lose weight is not eating much, he is considering a feeding tube but she is not interested in that. Prior L hip fracture with poor healing, extensive history of falls. PT-OP-G Mobility & Gait Start: 04/13/21 07:31 Freq: Status: Active Protocol: Document 04/13/21 14:55 AMB (Rec: 04/13/21 15:08 AMB [email or web address]) OP Mobility Evaluation Bed Mobility Rolling Wale Supine to and from Sit Wale- slow Transfers Sit to Stand ModA- tends to fall posteior, cues for safety Bed to Chair Transfers stand step pivot, ModA for weightshift OP Gait Assessment Comments Gait Comments Assessed gait in //bars. Bilat genu recurvatum- tends to go into extensor tone with torso. Scissoring gait pattern. When not in extensor tone forward flexed at hips. Ambulated 10 feetx2 with ModA for weightshift and to prevent posterior LOB. PT-OP-K Range of Motion Start: 04/13/21 07:31 Freq: Status: Active Protocol: Document 04/13/21 09:45 AMB (Rec: 04/13/21 15:10 AMB [email or web address]) Hip Goniometric Range of Motion Hip Right Passive Comments Neutral hip extension PT-OP-M Strength Start: 04/13/21 07:31 Freq: Status: Active Protocol: Document 04/13/21 14:55 AMB (Rec: 04/13/21 15:08 AMB [email or web address]) Hip Strength Hip Manual Muscle Testing Right Flexion (L2) 4 Good Extension (S1) 4 Good Abduction 4 Good Left Flexion (L2) 3- Fair- Extension (S1) 2 Poor Abduction 2- Poor- Knee Strength Knee Manual Muscle Testing Left Comments 4/5 bilat knee flexion, extension, ankle dorsiflexion PT-OP-Q Treatments Start: 04/13/21 07:31 Freq: Status: Active Protocol: Document 04/13/21 14:55 AMB (Rec: 04/13/21 15:08 AMB [email or web address]) Therapeutic Exercises Sitting Exercises 2 Sitting Exercise Name knee extension in seated Comments AROM x 20 cues to keep torso upright, not fall into extension 1 Sitting Exercise Name ankle pumps in seated Reps/Minutes 10 PT-OP-T Assessment and Plan Start: 04/13/21 07:31 Freq: Status: Active Protocol: Document 04/13/21 15:10 AMB (Rec: 04/13/21 15:31 AMB [email or web address]) Physical Therapy Assessment Rehab Potential Rehabilitation Potential Good Evaluation Complexity Number of Personal Factors/Comorbidities 3 or More Number of Body Systems Impaired 4 or More Clinical Presentation at Evaluation Evolving Impairments Impairments Functional Activities,Gait, Posture,ROM,Strength,Transfers Goals Three Impairment Transfers Short Term Goal (STG) Edgar will complete a sit to stand transfer with Wale without significant posterior LOB. STG Duration 4 weeks Die Cutter Goal (LTG) Sy will roll over in bed and move from sidelying to sitting with Wale. LTG Duration 12 weeks Two Impairment HEP Short Term Goal (STG) Edgar will be independent with a HEP in seated for her leg strength and coordination. STG Duration 6 weeks One Impairment Gait Short Term Goal (STG) Edgar will ambulate with a 4WW for 100 feet with Wale and without an increase in her bilateral hip pain. STG Duration 6 weeks Assessment Summary Assessment Edgar attends physical therapy s/ p R intertrochanteric fracture with long cephalomedullary nail fixation in October. Edgar is well known to this PT. Overall her mobility is slightly worse than at her last outpatient PT evaluation. She displayed more extensor tone, continuing her predisposition to fall posteriorly. 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 She will benefit from PT to work on strengthening so that she is able to stay at home with her Oh as long as possible. Physical Therapy Plan Frequency and Duration Frequency of Treatment 2x/Week Duration of Treatment 12 weeks Plan of Care Start Date 04/13/21 Plan of Care End Date 07/06/21 Therapeutic Interventions Therapeutic Interventions Balance Training,Gait Training ,Home Exercise Program,Joint Mobilizations,Manual Therapy, Neuromuscular Re-education, Self-Care/Home Management,Soft Tissue Mobilization, Therapeutic Activities, Therapeutic Exercises Modalities Cold Pack/Ice Massage,Electric Stimulation,Hot Packs Next Visit Focus/Plan Next Note Type Treatment Note Next Visit Plan establish seated HEP, gait/ balance/safety training
--- NOTE | 2021-04-13 15:35 | PT.OPPOC ---
Physical, Occupational & Speech Therapy At [facility] Current Diagnoses Parkinson's disease (04/13/21) Pain in unspecified hip (04/13/21) Other abnormalities of gait and mobility (04/13/21) History of falling (04/13/21) Visit Care Team Role Provider Type Hudson Mcmanus MD Attending Provider Physician Family Provider Primary Care Provider Referring Provider Specialty: Internal Medicine Address: [address] [place] [address], [address], [address] Email: [email or web address] Plan Of Care PT-OP-T Assessment and Plan Start: 04/13/21 07:31 Freq: Status: Active Protocol: Document 04/13/21 15:10 AMB (Rec: 04/13/21 15:31 AMB [email or web address]) Physical Therapy Assessment Rehab Potential Rehabilitation Potential Good Evaluation Complexity Number of Personal Factors/Comorbidities 3 or More Number of Body Systems Impaired 4 or More Clinical Presentation at Evaluation Evolving Impairments Impairments Functional Activities,Gait, Posture,ROM,Strength,Transfers Goals Three Impairment Transfers Short Term Goal (STG) Edgar will complete a sit to stand transfer with Wale without significant posterior LOB. STG Duration 4 weeks High Worker Goal (LTG) Edgar will roll over in bed and move from sidelying to sitting with Wale. LTG Duration 12 weeks Two Impairment HEP Short Term Goal (STG) Edgar will be independent with a HEP in seated for her leg strength and coordination. STG Duration 6 weeks One Impairment Gait Short Term Goal (STG) Edgar will ambulate with a 4WW for 100 feet with Wale and without an increase in her bilateral hip pain. STG Duration 6 weeks Assessment Summary Assessment Edgar attends physical therapy s/ p R intertrochanteric fracture with long cephalomedullary nail fixation in October. Edgar is well known to this PT. Overall her mobility is slightly worse than at her last outpatient PT evaluation. She displayed more extensor tone, continuing her predisposition to fall posteriorly. 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 She will benefit from PT to work on strengthening so that she is able to stay at home with her Oh as long as possible. Physical Therapy Plan Frequency and Duration Frequency of Treatment 2x/Week Duration of Treatment 12 weeks Plan of Care Start Date 04/13/21 Plan of Care End Date 07/06/21 Therapeutic Interventions Therapeutic Interventions Balance Training,Gait Training ,Home Exercise Program,Joint Mobilizations,Manual Therapy, Neuromuscular Re-education, Self-Care/Home Management,Soft Tissue Mobilization, Therapeutic Activities, Therapeutic Exercises Modalities Cold Pack/Ice Massage,Electric Stimulation,Hot Packs Next Visit Focus/Plan Next Note Type Treatment Note Next Visit Plan establish seated HEP, gait/ balance/safety training Plan of Care Dates Plan of Care Start Date 04/13/21 Plan of Care End Date 07/06/21 Electronically Signed by: Harriet Colvin, PT 04/13/21 [id number] Please Sign and Return: I have reviewed this Plan of Care and certify that the skilled therapy services above are required to meet the patient?s needs. Physician Signature Date Printed Name and Credentials Clinical Instructor Signature Printed Name and Credentials
--- NOTE | 2021-04-18 11:17 | PT.OTN ---
Current Diagnoses Parkinson's disease (04/18/21) Pain in unspecified hip (04/18/21) Other abnormalities of gait and mobility (04/18/21) History of falling (04/18/21) Physical Therapy Treatment Note PT-OP-A Visit Information Start: 04/13/21 07:31 Freq: Status: Active Protocol: Document 04/18/21 10:43 AMB (Rec: 04/18/21 11:08 AMB [id number]) Out-Patient Physical Therapy Visit Information Visit Information Visit Type Treatment Note Visit Start Time 10:30 Visit Stop Time 11:15 Total Visit Minutes 45 Visit Number 2 PT-OP-B Current Condition Start: 04/13/21 07:31 Freq: Status: Active Protocol: Document 04/13/21 09:46 AMB (Rec: 04/13/21 10:25 AMB [id number]) Current Condition History of Current Condition Onset Date 11/06/20 Current Complaints Advanced Parkinsons History of Current Condition Sy attends physical therapy after fracturing her R hip in a fall in October. She then went to rehab and has been having home health. She is accompanied by her Oh. He states that his goal for her is strengthening. He does report one fall at the care center, but no falls since returning home. She did have a L hip fracture about 10 years ago and that continues to bother her. Pain is about the same as previous bout of physical therapy. She fell and fractured her right hip when she stood up alone and Oh was outside. Treatment Goals Patient/Caregiver Goals Strengthen legs, decrease fall risk Personal Factors Other Personal Factors That May Effect Advanced Parkinsons, Therapy/Recovery reports she has been lose weight is not eating much, he is considering a feeding tube but she is not interested in that. Prior L hip fracture with poor healing, extensive history of falls. PT-OP-C Subjective Start: 04/13/21 07:31 Freq: Status: Active Protocol: Document 04/18/21 10:43 AMB (Rec: 04/18/21 11:08 AMB [id number]) OP-PT Subjective Patient Comments Patient Comments Sy reports 0/10 pain today. PT-OP-G Mobility & Gait Start: 04/13/21 07:31 Freq: Status: Active Protocol: Document 04/13/21 14:55 AMB (Rec: 04/13/21 15:08 AMB [email or web address]) OP Mobility Evaluation Bed Mobility Rolling Wale Supine to and from Sit Wale- slow Transfers Sit to Stand ModA- tends to fall posteior, cues for safety Bed to Chair Transfers stand step pivot, ModA for weightshift OP Gait Assessment Comments Gait Comments Assessed gait in //bars. Bilat genu recurvatum- tends to go into extensor tone with torso. Scissoring gait pattern. When not in extensor tone forward flexed at hips. Ambulated 10 feetx2 with ModA for weightshift and to prevent posterior LOB. PT-OP-K Range of Motion Start: 04/13/21 07:31 Freq: Status: Active Protocol: Document 04/13/21 09:45 AMB (Rec: 04/13/21 15:10 AMB [email or web address]) Hip Goniometric Range of Motion Hip Right Passive Comments Neutral hip extension PT-OP-M Strength Start: 04/13/21 07:31 Freq: Status: Active Protocol: Document 04/13/21 14:55 AMB (Rec: 04/13/21 15:08 AMB [email or web address]) Hip Strength Hip Manual Muscle Testing Right Flexion (L2) 4 Good Extension (S1) 4 Good Abduction 4 Good Left Flexion (L2) 3- Fair- Extension (S1) 2 Poor Abduction 2- Poor- Knee Strength Knee Manual Muscle Testing Left Comments 4/5 bilat knee flexion, extension, ankle dorsiflexion PT-OP-Q Treatments Start: 04/13/21 07:31 Freq: Status: Active Protocol: Document 04/18/21 10:43 AMB (Rec: 04/18/21 11:08 AMB [id number]) Therapeutic Exercises Sitting Exercises 3 Sitting Exercise Name hip abduction against band Side bilateral Resistance #3 2 Sitting Exercise Name knee extension in seated Side left Resistance 2# Comments x 20 cues to keep torso upright, not fall into extension 1 Sitting Exercise Name ankle pumps in seated Reps/Minutes 10 Standing Exercises 3 Standing Exercise Name sit to stand 2 Standing Exercise Name heel raises Reps/Minutes 2x10 Comments //bars 1 Standing Exercise Name july Reps/Minutes 2x10 Comments //bars Gait Training Gait Activity Walking in // bars Description fwd/bkwd/ lateral Distance/Duration 6x length of // bars Treatment Focus thoracic extension Comments turns in parallel bars, working on not crossing legs PT-OP-T Assessment and Plan Start: 04/13/21 07:31 Freq: Status: Active Protocol: Document 04/18/21 10:43 AMB (Rec: 04/18/21 11:08 AMB [id number]) Physical Therapy Assessment Assessment Summary Assessment Sy tends to lose balance posteriorly with sit to stand and need cues for upright posture. Pt fatigues, especially on L side more so than previous physical therapy . Physical Therapy Plan Next Visit Focus/Plan Next Note Type Treatment Note Next Visit Plan Continues standing HEP, walking // bars.
--- NOTE | 2021-04-25 13:11 | PT.OTN ---
Current Diagnoses Parkinson's disease (04/25/21) Pain in unspecified hip (04/25/21) Other abnormalities of gait and mobility (04/25/21) History of falling (04/25/21) Physical Therapy Treatment Note PT-OP-A Visit Information Start: 04/13/21 07:31 Freq: Status: Active Protocol: Document 04/25/21 11:12 AMB (Rec: 04/25/21 12:01 AMB [id number]) Out-Patient Physical Therapy Visit Information Visit Information Visit Type Treatment Note Visit Start Time 11:15 Visit Stop Time 12:00 Total Visit Minutes 45 Visit Number 3 PT-OP-B Current Condition Start: 04/13/21 07:31 Freq: Status: Active Protocol: Document 04/13/21 09:46 AMB (Rec: 04/13/21 10:25 AMB [id number]) Current Condition History of Current Condition Onset Date 11/06/20 Current Complaints Advanced Parkinsons History of Current Condition Sy attends physical therapy after fracturing her R hip in a fall in October. She then went to rehab and has been having home health. She is accompanied by her Oh. He states that his goal for her is strengthening. He does report one fall at the care center, but no falls since returning home. She did have a L hip fracture about 10 years ago and that continues to bother her. Pain is about the same as previous bout of physical therapy. She fell and fractured her right hip when she stood up alone and Oh was outside. Treatment Goals Patient/Caregiver Goals Strengthen legs, decrease fall risk Personal Factors Other Personal Factors That May Effect Advanced Parkinsons, Therapy/Recovery reports she has been lose weight is not eating much, he is considering a feeding tube but she is not interested in that. Prior L hip fracture with poor healing, extensive history of falls. PT-OP-C Subjective Start: 04/13/21 07:31 Freq: Status: Active Protocol: Document 04/25/21 11:12 AMB (Rec: 04/25/21 12:01 AMB [id number]) OP-PT Subjective Patient Comments Patient Comments Sy reports she gets winded easily. PT-OP-G Mobility & Gait Start: 04/13/21 07:31 Freq: Status: Active Protocol: Document 04/13/21 14:55 AMB (Rec: 04/13/21 15:08 AMB [email or web address]) OP Mobility Evaluation Bed Mobility Rolling Wale Supine to and from Sit Wale- slow Transfers Sit to Stand ModA- tends to fall posteior, cues for safety Bed to Chair Transfers stand step pivot, ModA for weightshift OP Gait Assessment Comments Gait Comments Assessed gait in //bars. Bilat genu recurvatum- tends to go into extensor tone with torso. Scissoring gait pattern. When not in extensor tone forward flexed at hips. Ambulated 10 feetx2 with ModA for weightshift and to prevent posterior LOB. PT-OP-K Range of Motion Start: 04/13/21 07:31 Freq: Status: Active Protocol: Document 04/13/21 09:45 AMB (Rec: 04/13/21 15:10 AMB [email or web address]) Hip Goniometric Range of Motion Hip Right Passive Comments Neutral hip extension PT-OP-M Strength Start: 04/13/21 07:31 Freq: Status: Active Protocol: Document 04/13/21 14:55 AMB (Rec: 04/13/21 15:08 AMB [email or web address]) Hip Strength Hip Manual Muscle Testing Right Flexion (L2) 4 Good Extension (S1) 4 Good Abduction 4 Good Left Flexion (L2) 3- Fair- Extension (S1) 2 Poor Abduction 2- Poor- Knee Strength Knee Manual Muscle Testing Left Comments 4/5 bilat knee flexion, extension, ankle dorsiflexion PT-OP-Q Treatments Start: 04/13/21 07:31 Freq: Status: Active Protocol: Document 04/25/21 11:12 AMB (Rec: 04/25/21 12:01 AMB [id number]) Gym Equipment Shuttle Recovery Unilateral Squats Details 50 Reps/Time 2x10 Bilateral Squats Details 87# Reps/Time 3x10 Therapeutic Exercises Sitting Exercises 1 Sitting Exercise Name ankle pumps in seated Reps/Minutes 10 Standing Exercises 3 Standing Exercise Name sit to stand 1 Standing Exercise Name july Reps/Minutes 2x10 Comments //bars Gait Training Gait Activity Walking in // bars Description fwd/bkwd/ lateral Distance/Duration 6x length of // bars Treatment Focus thoracic extension Comments turns in parallel bars, working on not crossing legs, upright posture PT-OP-T Assessment and Plan Start: 04/13/21 07:31 Freq: Status: Active Protocol: Document 04/25/21 11:12 AMB (Rec: 04/25/21 12:01 AMB [id number]) Physical Therapy Assessment Goals Three Impairment Transfers Short Term Goal (STG) Sy will complete a sit to stand transfer with Wale without significant posterior LOB. STG Duration 4 weeks Intermediate Goal (LTG) Sy will roll over in bed and move from sidelying to sitting with Wale. LTG Duration 12 weeks Two Impairment HEP Short Term Goal (STG) Sy will be independent with a HEP in seated for her leg strength and coordination. STG Duration 6 weeks One Impairment Gait Short Term Goal (STG) Sy will ambulate with a 4WW for 100 feet with Wale and without an increase in her bilateral hip pain. STG Duration 6 weeks Assessment Summary Assessment Really encouraged up right posture for breathing and overall posture/safety at today's appt. Physical Therapy Plan Next Visit Focus/Plan Next Note Type Treatment Note Next Visit Plan Continues standing HEP, walking // bars, promote upright posture.
--- NOTE | 2021-04-27 11:17 | PT.OTN ---
Current Diagnoses Parkinson's disease (04/27/21) Pain in unspecified hip (04/27/21) Other abnormalities of gait and mobility (04/27/21) History of falling (04/27/21) Physical Therapy Treatment Note PT-OP-A Visit Information Start: 04/13/21 07:31 Freq: Status: Active Protocol: Document 04/27/21 10:33 MA (Rec: 04/27/21 11:17 MA [id number]) Out-Patient Physical Therapy Visit Information Visit Information Visit Type Treatment Note Visit Start Time 10:30 Visit Stop Time 11:10 Total Visit Minutes 40 Visit Number 4 Number of STEERER Visits 1 PT-OP-B Current Condition Start: 04/13/21 07:31 Freq: Status: Active Protocol: Document 04/13/21 09:46 AMB (Rec: 04/13/21 10:25 AMB [id number]) Current Condition History of Current Condition Onset Date 11/06/20 Current Complaints Advanced Parkinsons History of Current Condition Sy attends physical therapy after fracturing her R hip in a fall in October. She then went to rehab and has been having home health. She is accompanied by her Oh. He states that his goal for her is strengthening. He does report one fall at the care center, but no falls since returning home. She did have a L hip fracture about 10 years ago and that continues to bother her. Pain is about the same as previous bout of physical therapy. She fell and fractured her right hip when she stood up alone and Oh was outside. Treatment Goals Patient/Caregiver Goals Strengthen legs, decrease fall risk Personal Factors Other Personal Factors That May Effect Advanced Parkinsons, Therapy/Recovery reports she has been lose weight is not eating much, he is considering a feeding tube but she is not interested in that. Prior L hip fracture with poor healing, extensive history of falls. PT-OP-C Subjective Start: 04/13/21 07:31 Freq: Status: Active Protocol: Document 04/27/21 10:33 MA (Rec: 04/27/21 11:17 MA [id number]) OP-PT Subjective Patient Comments Patient Comments Edgar states her R hip sometimes bothers her. PT-OP-G Mobility & Gait Start: 04/13/21 07:31 Freq: Status: Active Protocol: Document 04/13/21 14:55 AMB (Rec: 04/13/21 15:08 AMB [email or web address]) OP Mobility Evaluation Bed Mobility Rolling Wale Supine to and from Sit Wale- slow Transfers Sit to Stand ModA- tends to fall posteior, cues for safety Bed to Chair Transfers stand step pivot, ModA for weightshift OP Gait Assessment Comments Gait Comments Assessed gait in //bars. Bilat genu recurvatum- tends to go into extensor tone with torso. Scissoring gait pattern. When not in extensor tone forward flexed at hips. Ambulated 10 feetx2 with ModA for weightshift and to prevent posterior LOB. PT-OP-K Range of Motion Start: 04/13/21 07:31 Freq: Status: Active Protocol: Document 04/13/21 09:45 AMB (Rec: 04/13/21 15:10 AMB [email or web address]) Hip Goniometric Range of Motion Hip Right Passive Comments Neutral hip extension PT-OP-M Strength Start: 04/13/21 07:31 Freq: Status: Active Protocol: Document 04/13/21 14:55 AMB (Rec: 04/13/21 15:08 AMB [email or web address]) Hip Strength Hip Manual Muscle Testing Right Flexion (L2) 4 Good Extension (S1) 4 Good Abduction 4 Good Left Flexion (L2) 3- Fair- Extension (S1) 2 Poor Abduction 2- Poor- Knee Strength Knee Manual Muscle Testing Left Comments 4/5 bilat knee flexion, extension, ankle dorsiflexion PT-OP-Q Treatments Start: 04/13/21 07:31 Freq: Status: Active Protocol: Document 04/27/21 10:33 MA (Rec: 04/27/21 11:17 MA [id number]) Therapeutic Exercises Sitting Exercises 3 Sitting Exercise Name hip abduction against band Side bilateral Resistance #3 2 Sitting Exercise Name knee extension in seated Side left Resistance 2# Comments x 20 cues to keep torso upright, not fall into extension 1 Sitting Exercise Name ankle pumps in seated Reps/Minutes 10 Standing Exercises 3 Standing Exercise Name sit to stand Reps/Minutes 2x5 Comments first set from w/c seconds set from plinth 1 Standing Exercise Name july Reps/Minutes 2x10 Comments //bars Therapeutic Activity Therapeutic Activity Bed Mobs Comments 1. sit>SL>supine>SL>sit 2. rolling L/R - pt requires min A for rolling verbal cues for all movements and occasional Min A for LEs when going from seated>SL Tranfers Comments 1. transferring from mat table to chair. Pt needs more mod- max A for transfers R but only Min A for transfers L 2. Sit<>stand from w/c, mat table, and std height chair Gait Training Gait Activity 1 Description 4WW Level of Assistance CGA-Min A Surface 4x50ft Comments walking and turning R- Mod A for turns Walking in // bars Description fwd/bkwd/ lateral Distance/Duration 6x length of // bars Treatment Focus thoracic extension Comments turns in parallel bars, working on not crossing legs, upright posture PT-OP-T Assessment and Plan Start: 04/13/21 07:31 Freq: Status: Active Protocol: Document 04/27/21 10:33 MA (Rec: 04/27/21 11:17 MA [id number]) Physical Therapy Assessment Goals Three Impairment Transfers Short Term Goal (STG) Sy will complete a sit to stand transfer with Wale without significant posterior LOB. STG Duration 4 weeks Shelter Goal (LTG) Sy will roll over in bed and move from sidelying to sitting with Wale. LTG Duration 12 weeks Two Impairment HEP Short Term Goal (STG) Sy will be independent with a HEP in seated for her leg strength and coordination. STG Duration 6 weeks One Impairment Gait Short Term Goal (STG) Sy will ambulate with a 4WW for 100 feet with Wale and without an increase in her bilateral hip pain. STG Duration 6 weeks Assessment Summary Assessment Pt continues to need cues for thoracic extension throughout exercises. She does well transfering to L but struggles to transfer R this session without Mod-Max A. Pt was able to use FWW this session with CGA-Min A when walking and Mod A for R turns. Verbal cues throughout gait training for increasing knee & hip flexion to avoid dragging feet. Physical Therapy Plan Frequency and Duration Frequency of Treatment 2x/Week Duration of Treatment 12 weeks Plan of Care Start Date 04/13/21 Plan of Care End Date 07/06/21 Therapeutic Interventions Therapeutic Interventions Balance Training,Gait Training ,Home Exercise Program,Joint Mobilizations,Manual Therapy, Neuromuscular Re-education, Self-Care/Home Management,Soft Tissue Mobilization, Therapeutic Activities, Therapeutic Exercises Modalities Cold Pack/Ice Massage,Electric Stimulation,Hot Packs Next Visit Focus/Plan Next Note Type Treatment Note Next Visit Plan Continues standing HEP, walking // bars, promote upright posture.
--- NOTE | 2021-05-01 15:54 | PT.OTN ---
Current Diagnoses Parkinson's disease (05/01/21) Pain in unspecified hip (05/01/21) Other abnormalities of gait and mobility (05/01/21) History of falling (05/01/21) Physical Therapy Treatment Note PT-OP-A Visit Information Start: 04/13/21 07:31 Freq: Status: Active Protocol: Document 05/01/21 13:21 AMB (Rec: 05/01/21 13:24 AMB [id number]) Out-Patient Physical Therapy Visit Information Visit Information Visit Type Treatment Note Visit Start Time 13:00 Visit Stop Time 13:45 Total Visit Minutes 45 Visit Number 5 PT-OP-B Current Condition Start: 04/13/21 07:31 Freq: Status: Active Protocol: Document 04/13/21 09:46 AMB (Rec: 04/13/21 10:25 AMB [id number]) Current Condition History of Current Condition Onset Date 11/06/20 Current Complaints Advanced Parkinsons History of Current Condition Edgar attends physical therapy after fracturing her R hip in a fall in October. She then went to rehab and has been having home health. She is accompanied by her Oh. He states that his goal for her is strengthening. He does report one fall at the care center, but no falls since returning home. She did have a L hip fracture about 10 years ago and that continues to bother her. Pain is about the same as previous bout of physical therapy. She fell and fractured her right hip when she stood up alone and Oh was outside. Treatment Goals Patient/Caregiver Goals Strengthen legs, decrease fall risk Personal Factors Other Personal Factors That May Effect Advanced Parkinsons, Therapy/Recovery reports she has been lose weight is not eating much, he is considering a feeding tube but she is not interested in that. Prior L hip fracture with poor healing, extensive history of falls. PT-OP-C Subjective Start: 04/13/21 07:31 Freq: Status: Active Protocol: Document 05/01/21 13:21 AMB (Rec: 05/01/21 13:24 AMB [id number]) OP-PT Subjective Patient Comments Patient Comments Edgar thinks that her sciatica was healed with the rest that she has been doing since her most recent hip fx. PT-OP-G Mobility & Gait Start: 04/13/21 07:31 Freq: Status: Active Protocol: Document 04/13/21 14:55 AMB (Rec: 04/13/21 15:08 AMB [email or web address]) OP Mobility Evaluation Bed Mobility Rolling Wale Supine to and from Sit Wale- slow Transfers Sit to Stand ModA- tends to fall posteior, cues for safety Bed to Chair Transfers stand step pivot, ModA for weightshift OP Gait Assessment Comments Gait Comments Assessed gait in //bars. Bilat genu recurvatum- tends to go into extensor tone with torso. Scissoring gait pattern. When not in extensor tone forward flexed at hips. Ambulated 10 feetx2 with ModA for weightshift and to prevent posterior LOB. PT-OP-K Range of Motion Start: 04/13/21 07:31 Freq: Status: Active Protocol: Document 04/13/21 09:45 AMB (Rec: 04/13/21 15:10 AMB [email or web address]) Hip Goniometric Range of Motion Hip Right Passive Comments Neutral hip extension PT-OP-M Strength Start: 04/13/21 07:31 Freq: Status: Active Protocol: Document 04/13/21 14:55 AMB (Rec: 04/13/21 15:08 AMB [email or web address]) Hip Strength Hip Manual Muscle Testing Right Flexion (L2) 4 Good Extension (S1) 4 Good Abduction 4 Good Left Flexion (L2) 3- Fair- Extension (S1) 2 Poor Abduction 2- Poor- Knee Strength Knee Manual Muscle Testing Left Comments 4/5 bilat knee flexion, extension, ankle dorsiflexion PT-OP-Q Treatments Start: 04/13/21 07:31 Freq: Status: Active Protocol: Document 05/01/21 15:45 AMB (Rec: 05/01/21 15:54 AMB [email or web address]) Gym Equipment Shuttle Recovery Bilateral Squats Details 75# Reps/Time 3x10 Therapeutic Exercises Sitting Exercises 4 Sitting Exercise Name rows in seated Resistance #2 band Reps/Minutes 2x10 Standing Exercises 4 Standing Exercise Name lumbar extension in // bars Reps/Minutes 10 3 Standing Exercise Name sit to stand Reps/Minutes 2x5 Comments first set from w/c seconds set from plint Therapeutic Activity Therapeutic Activity Tranfers Comments 1. transferring from mat table to chair. Pt needs more mod- max A for transfers R but only Min A for transfers L 2. Sit<>stand from w/c, mat table, Gait Training Gait Activity 1 Description 4WW Level of Assistance CGA-Min A Surface 2x100 Comments walking and turning R- Mod A for turns w/c follow PT-OP-T Assessment and Plan Start: 04/13/21 07:31 Freq: Status: Active Protocol: Document 05/01/21 15:45 AMB (Rec: 05/01/21 15:54 AMB [email or web address]) Physical Therapy Assessment Goals Three Impairment Transfers Short Term Goal (STG) Edgar will complete a sit to stand transfer with Wale without significant posterior LOB. STG Duration 4 weeks Desilverizer Goal (LTG) Sy will roll over in bed and move from sidelying to sitting with Wale. LTG Duration 12 weeks Two Impairment HEP Short Term Goal (STG) Edgar will be independent with a HEP in seated for her leg strength and coordination. STG Duration 6 weeks One Impairment Gait Short Term Goal (STG) Edgar will ambulate with a 4WW for 100 feet with Wale and without an increase in her bilateral hip pain. STG Duration 6 weeks Assessment Summary Assessment Edgar did well with gait today, but did fatigue towards the end. Continues to be challenged by stand pivot transfers to the right. Physical Therapy Plan Next Visit Focus/Plan Next Note Type Treatment Note Next Visit Plan Continues standing HEP, walking // bars, promote upright posture.
--- NOTE | 2021-05-04 11:58 | PT.OTN ---
Current Diagnoses Parkinson's disease (05/04/21) Pain in unspecified hip (05/04/21) Other abnormalities of gait and mobility (05/04/21) History of falling (05/04/21) Physical Therapy Treatment Note PT-OP-A Visit Information Start: 04/13/21 07:31 Freq: Status: Active Protocol: Document 05/04/21 11:15 MA (Rec: 05/04/21 11:57 MA [id number]) Out-Patient Physical Therapy Visit Information Visit Information Visit Type Treatment Note Visit Start Time 11:15 Visit Stop Time 11:55 Total Visit Minutes 40 Visit Number 6 Number of IT [employer] MANAGER Visits 1 PT-OP-B Current Condition Start: 04/13/21 07:31 Freq: Status: Active Protocol: Document 04/13/21 09:46 AMB (Rec: 04/13/21 10:25 AMB [id number]) Current Condition History of Current Condition Onset Date 11/06/20 Current Complaints Advanced Parkinsons History of Current Condition Sy attends physical therapy after fracturing her R hip in a fall in October. She then went to rehab and has been having home health. She is accompanied by her Oh. He states that his goal for her is strengthening. He does report one fall at the care center, but no falls since returning home. She did have a L hip fracture about 10 years ago and that continues to bother her. Pain is about the same as previous bout of physical therapy. She fell and fractured her right hip when she stood up alone and Oh was outside. Treatment Goals Patient/Caregiver Goals Strengthen legs, decrease fall risk Personal Factors Other Personal Factors That May Effect Advanced Parkinsons, Therapy/Recovery reports she has been lose weight is not eating much, he is considering a feeding tube but she is not interested in that. Prior L hip fracture with poor healing, extensive history of falls. PT-OP-C Subjective Start: 04/13/21 07:31 Freq: Status: Active Protocol: Document 05/04/21 11:15 MA (Rec: 05/04/21 11:57 MA [id number]) OP-PT Subjective Patient Comments Patient Comments Edgar states she has L quad pain sometimes but her posterior RLE pain is gone since surgery PT-OP-G Mobility & Gait Start: 04/13/21 07:31 Freq: Status: Active Protocol: Document 04/13/21 14:55 AMB (Rec: 04/13/21 15:08 AMB [email or web address]) OP Mobility Evaluation Bed Mobility Rolling Wale Supine to and from Sit Wale- slow Transfers Sit to Stand ModA- tends to fall posteior, cues for safety Bed to Chair Transfers stand step pivot, ModA for weightshift OP Gait Assessment Comments Gait Comments Assessed gait in //bars. Bilat genu recurvatum- tends to go into extensor tone with torso. Scissoring gait pattern. When not in extensor tone forward flexed at hips. Ambulated 10 feetx2 with ModA for weightshift and to prevent posterior LOB. PT-OP-K Range of Motion Start: 04/13/21 07:31 Freq: Status: Active Protocol: Document 04/13/21 09:45 AMB (Rec: 04/13/21 15:10 AMB [email or web address]) Hip Goniometric Range of Motion Hip Right Passive Comments Neutral hip extension PT-OP-M Strength Start: 04/13/21 07:31 Freq: Status: Active Protocol: Document 04/13/21 14:55 AMB (Rec: 04/13/21 15:08 AMB [email or web address]) Hip Strength Hip Manual Muscle Testing Right Flexion (L2) 4 Good Extension (S1) 4 Good Abduction 4 Good Left Flexion (L2) 3- Fair- Extension (S1) 2 Poor Abduction 2- Poor- Knee Strength Knee Manual Muscle Testing Left Comments 4/5 bilat knee flexion, extension, ankle dorsiflexion PT-OP-Q Treatments Start: 04/13/21 07:31 Freq: Status: Active Protocol: Document 05/04/21 11:15 MA (Rec: 05/04/21 11:57 MA [id number]) Therapeutic Exercises Standing Exercises Abduction Standing Exercise Name hip abduction Side bilateral Equipment Used // bars Reps/Minutes x10 ea 4 Standing Exercise Name lumbar extension in // bars Reps/Minutes 10 3 Standing Exercise Name sit to stand Reps/Minutes 2x5 Comments first set from w/c seconds set from plinth 2 Standing Exercise Name heel raises Reps/Minutes 2x10 Comments //bars 1 Standing Exercise Name july Reps/Minutes 2x10 Comments //bars Therapeutic Activity Therapeutic Activity Tranfers Comments 1. transferring from mat table to chair. Pt needs more mod- max A for transfers R but only Min A for transfers L 2. Sit<>stand from w/c, mat table, Gait Training Gait Activity 1 Description 4WW Level of Assistance CGA-Min A Surface 2x100 Comments walking and turning R- Mod A for turns w/c follow Walking in // bars Description fwd/bkwd/ lateral Distance/Duration 6x length of // bars Treatment Focus thoracic extension Comments turns in parallel bars, working on not crossing legs, upright posture PT-OP-T Assessment and Plan Start: 04/13/21 07:31 Freq: Status: Active Protocol: Document 05/04/21 11:15 MA (Rec: 05/04/21 11:57 MA [id number]) Physical Therapy Assessment Goals Three Impairment Transfers Short Term Goal (STG) Edgar will complete a sit to stand transfer with Wale without significant posterior LOB. STG Duration 4 weeks Pole Classifier Goal (LTG) Sy will roll over in bed and move from sidelying to sitting with Wale. LTG Duration 12 weeks Two Impairment HEP Short Term Goal (STG) Edgar will be independent with a HEP in seated for her leg strength and coordination. STG Duration 6 weeks One Impairment Gait Short Term Goal (STG) Edgar will ambulate with a 4WW for 100 feet with Wale and without an increase in her bilateral hip pain. STG Duration 6 weeks Assessment Summary Assessment Edgar did well with turning during gait training, only requiring CGA this session. She continues to fatigue quickly but is improving in posture and balance during gait with 4WW and in // bars. She continunes to have difficutly transferring R during transfer training between chair and mat table but shows improvement with each transfer. Cues to use therapists arms for balance helps with transfers. Physical Therapy Plan Frequency and Duration Frequency of Treatment 2x/Week Duration of Treatment 12 weeks Plan of Care Start Date 04/13/21 Plan of Care End Date 07/06/21 Therapeutic Interventions Therapeutic Interventions Balance Training,Gait Training ,Home Exercise Program,Joint Mobilizations,Manual Therapy, Neuromuscular Re-education, Self-Care/Home Management,Soft Tissue Mobilization, Therapeutic Activities, Therapeutic Exercises Modalities Cold Pack/Ice Massage,Electric Stimulation,Hot Packs Next Visit Focus/Plan Next Note Type Treatment Note Next Visit Plan Continues standing HEP, walking // bars, promote upright posture, transfers R>L .
--- NOTE | 2021-05-09 14:09 | PT.OTN ---
Current Diagnoses Parkinson's disease (05/09/21) Pain in unspecified hip (05/09/21) Other abnormalities of gait and mobility (05/09/21) History of falling (05/09/21) Physical Therapy Treatment Note PT-OP-A Visit Information Start: 04/13/21 07:31 Freq: Status: Active Protocol: Document 05/09/21 13:00 AMB (Rec: 05/09/21 14:09 AMB [id number]) Out-Patient Physical Therapy Visit Information Visit Information Visit Type Treatment Note Visit Start Time 13:00 Visit Stop Time 13:45 Total Visit Minutes 45 Visit Number 7 PT-OP-B Current Condition Start: 04/13/21 07:31 Freq: Status: Active Protocol: Document 04/13/21 09:46 AMB (Rec: 04/13/21 10:25 AMB [id number]) Current Condition History of Current Condition Onset Date 11/06/20 Current Complaints Advanced Parkinsons History of Current Condition Sy attends physical therapy after fracturing her R hip in a fall in October. She then went to rehab and has been having home health. She is accompanied by her Oh. He states that his goal for her is strengthening. He does report one fall at the care center, but no falls since returning home. She did have a L hip fracture about 10 years ago and that continues to bother her. Pain is about the same as previous bout of physical therapy. She fell and fractured her right hip when she stood up alone and Oh was outside. Treatment Goals Patient/Caregiver Goals Strengthen legs, decrease fall risk Personal Factors Other Personal Factors That May Effect Advanced Parkinsons, Therapy/Recovery reports she has been lose weight is not eating much, he is considering a feeding tube but she is not interested in that. Prior L hip fracture with poor healing, extensive history of falls. PT-OP-C Subjective Start: 04/13/21 07:31 Freq: Status: Active Protocol: Document 05/09/21 13:00 AMB (Rec: 05/09/21 14:09 AMB [id number]) OP-PT Subjective Patient Comments Patient Comments Sy states she is down to 118#. PT-OP-G Mobility & Gait Start: 04/13/21 07:31 Freq: Status: Active Protocol: Document 04/13/21 14:55 AMB (Rec: 04/13/21 15:08 AMB [email or web address]) OP Mobility Evaluation Bed Mobility Rolling Wale Supine to and from Sit Wale- slow Transfers Sit to Stand ModA- tends to fall posteior, cues for safety Bed to Chair Transfers stand step pivot, ModA for weightshift OP Gait Assessment Comments Gait Comments Assessed gait in //bars. Bilat genu recurvatum- tends to go into extensor tone with torso. Scissoring gait pattern. When not in extensor tone forward flexed at hips. Ambulated 10 feetx2 with ModA for weightshift and to prevent posterior LOB. PT-OP-K Range of Motion Start: 04/13/21 07:31 Freq: Status: Active Protocol: Document 04/13/21 09:45 AMB (Rec: 04/13/21 15:10 AMB [email or web address]) Hip Goniometric Range of Motion Hip Right Passive Comments Neutral hip extension PT-OP-M Strength Start: 04/13/21 07:31 Freq: Status: Active Protocol: Document 04/13/21 14:55 AMB (Rec: 04/13/21 15:08 AMB [email or web address]) Hip Strength Hip Manual Muscle Testing Right Flexion (L2) 4 Good Extension (S1) 4 Good Abduction 4 Good Left Flexion (L2) 3- Fair- Extension (S1) 2 Poor Abduction 2- Poor- Knee Strength Knee Manual Muscle Testing Left Comments 4/5 bilat knee flexion, extension, ankle dorsiflexion PT-OP-Q Treatments Start: 04/13/21 07:31 Freq: Status: Active Protocol: Document 05/09/21 13:00 AMB (Rec: 05/09/21 14:09 AMB [id number]) Gym Equipment Shuttle Recovery Bilateral Squats Details 62# Reps/Time 3x10 Therapeutic Exercises Standing Exercises 3 Standing Exercise Name sit to stand Reps/Minutes 2x5 Comments cued forward lean, first set from w/c seconds set from plint Therapeutic Activity Therapeutic Activity Tranfers Comments 1. transferring from mat table to chair. Pt needs more modA for transfers R but only Min A for transfers L 2. Rolling R and L, pt able to do with cueing only and no physical assist today Gait Training Gait Activity 1 Description 4WW Level of Assistance CGA-Min A Surface 2x100 Comments walking and turning R- Mod A for turns w/c follow- fatigues last 50 ft PT-OP-T Assessment and Plan Start: 04/13/21 07:31 Freq: Status: Active Protocol: Document 05/09/21 13:00 AMB (Rec: 05/09/21 14:09 AMB [id number]) Physical Therapy Assessment Goals Three Impairment Transfers Short Term Goal (STG) Sy will complete a sit to stand transfer with Wale without significant posterior LOB. STG Duration 4 weeks Half-Way Goal (LTG) Sy will roll over in bed and move from sidelying to sitting with Wale. LTG Duration 12 weeks Two Impairment HEP Short Term Goal (STG) Sy will be independent with a HEP in seated for her leg strength and coordination. STG Duration 6 weeks One Impairment Gait Short Term Goal (STG) Sy will ambulate with a 4WW for 100 feet with Wale and without an increase in her bilateral hip pain. STG Duration 6 weeks Assessment Summary Assessment Sy did better with rolling bilaterally today. Did discuss importance of continued pressure relief as pt has a tendency to sleep on her back all night long, and discussed physiology of continued weight loss and it's effect on muscle/strength loss. Physical Therapy Plan Frequency and Duration Frequency of Treatment 2x/Week Duration of Treatment 12 weeks Plan of Care Start Date 04/13/21 Plan of Care End Date 07/06/21 Therapeutic Interventions Therapeutic Interventions Balance Training,Gait Training ,Home Exercise Program,Joint Mobilizations,Manual Therapy, Neuromuscular Re-education, Self-Care/Home Management,Soft Tissue Mobilization, Therapeutic Activities, Therapeutic Exercises Modalities Cold Pack/Ice Massage,Electric Stimulation,Hot Packs Next Visit Focus/Plan Next Note Type Treatment Note Next Visit Plan Continues standing HEP, walking // bars, promote upright posture, transfers R>L .
--- NOTE | 2021-05-15 16:13 | PT.OTN ---
Current Diagnoses Parkinson's disease (05/15/21) Pain in unspecified hip (05/15/21) Other abnormalities of gait and mobility (05/15/21) History of falling (05/15/21) Physical Therapy Treatment Note PT-OP-A Visit Information Start: 04/13/21 07:31 Freq: Status: Active Protocol: Document 05/15/21 13:00 AMB (Rec: 05/15/21 13:39 AMB [id number]) Out-Patient Physical Therapy Visit Information Visit Information Visit Type Treatment Note Visit Start Time 13:00 Visit Stop Time 13:45 Total Visit Minutes 45 Visit Number 8 PT-OP-B Current Condition Start: 04/13/21 07:31 Freq: Status: Active Protocol: Document 04/13/21 09:46 AMB (Rec: 04/13/21 10:25 AMB [id number]) Current Condition History of Current Condition Onset Date 11/06/20 Current Complaints Advanced Parkinsons History of Current Condition Edgar attends physical therapy after fracturing her R hip in a fall in October. She then went to rehab and has been having home health. She is accompanied by her Oh. He states that his goal for her is strengthening. He does report one fall at the care center, but no falls since returning home. She did have a L hip fracture about 10 years ago and that continues to bother her. Pain is about the same as previous bout of physical therapy. She fell and fractured her right hip when she stood up alone and Oh was outside. Treatment Goals Patient/Caregiver Goals Strengthen legs, decrease fall risk Personal Factors Other Personal Factors That May Effect Advanced Parkinsons, Therapy/Recovery reports she has been lose weight is not eating much, he is considering a feeding tube but she is not interested in that. Prior L hip fracture with poor healing, extensive history of falls. PT-OP-C Subjective Start: 04/13/21 07:31 Freq: Status: Active Protocol: Document 05/15/21 13:00 AMB (Rec: 05/15/21 16:13 AMB [id number]) OP-PT Subjective Patient Comments Patient Comments Sy states feels like all she does is sit at home. No pain today. PT-OP-G Mobility & Gait Start: 04/13/21 07:31 Freq: Status: Active Protocol: Document 04/13/21 14:55 AMB (Rec: 04/13/21 15:08 AMB [email or web address]) OP Mobility Evaluation Bed Mobility Rolling Wale Supine to and from Sit Wale- slow Transfers Sit to Stand ModA- tends to fall posteior, cues for safety Bed to Chair Transfers stand step pivot, ModA for weightshift OP Gait Assessment Comments Gait Comments Assessed gait in //bars. Bilat genu recurvatum- tends to go into extensor tone with torso. Scissoring gait pattern. When not in extensor tone forward flexed at hips. Ambulated 10 feetx2 with ModA for weightshift and to prevent posterior LOB. PT-OP-K Range of Motion Start: 04/13/21 07:31 Freq: Status: Active Protocol: Document 04/13/21 09:45 AMB (Rec: 04/13/21 15:10 AMB [email or web address]) Hip Goniometric Range of Motion Hip Right Passive Comments Neutral hip extension PT-OP-M Strength Start: 04/13/21 07:31 Freq: Status: Active Protocol: Document 04/13/21 14:55 AMB (Rec: 04/13/21 15:08 AMB [email or web address]) Hip Strength Hip Manual Muscle Testing Right Flexion (L2) 4 Good Extension (S1) 4 Good Abduction 4 Good Left Flexion (L2) 3- Fair- Extension (S1) 2 Poor Abduction 2- Poor- Knee Strength Knee Manual Muscle Testing Left Comments 4/5 bilat knee flexion, extension, ankle dorsiflexion PT-OP-Q Treatments Start: 04/13/21 07:31 Freq: Status: Active Protocol: Document 05/15/21 13:00 AMB (Rec: 05/15/21 16:13 AMB [id number]) Gym Equipment Shuttle Recovery Bilateral Squats Details 62# Reps/Time 3x10 Therapeutic Exercises Standing Exercises 4 Standing Exercise Name lumbar extension in // bars Reps/Minutes 10 3 Standing Exercise Name sit to stand Reps/Minutes 2x5 Comments cued forward lean, first set from w/c seconds set from plinth Therapeutic Activity Therapeutic Activity Tranfers Comments 1. transferring from mat table to chair. Wale with stand pivot transfer Gait Training Gait Activity 1 Description 4WW Level of Assistance CGA-Min A Surface 2x100 Comments walking and turning ModA for turns, posture at end of gait PT-OP-T Assessment and Plan Start: 04/13/21 07:31 Freq: Status: Active Protocol: Document 05/15/21 13:00 AMB (Rec: 05/15/21 16:13 AMB [id number]) Physical Therapy Assessment Goals Three Impairment Transfers Short Term Goal (STG) Edgar will complete a sit to stand transfer with Wale without significant posterior LOB. STG Duration 4 weeks Prison Goal (LTG) Edgar will roll over in bed and move from sidelying to sitting with Wale. LTG Duration 12 weeks Two Impairment HEP Short Term Goal (STG) Edgar will be independent with a HEP in seated for her leg strength and coordination. STG Duration 6 weeks One Impairment Gait Short Term Goal (STG) Edgar will ambulate with a 4WW for 100 feet with Wale and without an increase in her bilateral hip pain. STG Duration 6 weeks Assessment Summary Assessment Did discuss Dance for Parkinson's. Edgar states she used to go to that, but then it got hard. She continues to be very challenged by maintaining upright posture, but did do better with transfers to both right and left today. Physical Therapy Plan Frequency and Duration Frequency of Treatment 2x/Week Duration of Treatment 12 weeks Plan of Care Start Date 04/13/21 Plan of Care End Date 07/06/21 Therapeutic Interventions Therapeutic Interventions Balance Training,Gait Training ,Home Exercise Program,Joint Mobilizations,Manual Therapy, Neuromuscular Re-education, Self-Care/Home Management,Soft Tissue Mobilization, Therapeutic Activities, Therapeutic Exercises Modalities Cold Pack/Ice Massage,Electric Stimulation,Hot Packs Next Visit Focus/Plan Next Note Type Treatment Note Next Visit Plan Continues standing HEP, walking // bars, promote upright posture, transfers R>L .
--- NOTE | 2021-05-30 14:04 | PT.OTN ---
Current Diagnoses Parkinson's disease (05/30/21) Pain in unspecified hip (05/30/21) Other abnormalities of gait and mobility (05/30/21) History of falling (05/30/21) Physical Therapy Treatment Note PT-OP-A Visit Information Start: 04/13/21 07:31 Freq: Status: Active Protocol: Document 05/30/21 13:00 AMB (Rec: 05/30/21 14:04 AMB [id number]) Out-Patient Physical Therapy Visit Information Visit Information Visit Type Treatment Note Visit Start Time 13:00 Visit Stop Time 13:45 Total Visit Minutes 45 Visit Number 9 PT-OP-B Current Condition Start: 04/13/21 07:31 Freq: Status: Active Protocol: Document 04/13/21 09:46 AMB (Rec: 04/13/21 10:25 AMB [id number]) Current Condition History of Current Condition Onset Date 11/06/20 Current Complaints Advanced Parkinsons History of Current Condition Edgar attends physical therapy after fracturing her R hip in a fall in October. She then went to rehab and has been having home health. She is accompanied by her Oh. He states that his goal for her is strengthening. He does report one fall at the care center, but no falls since returning home. She did have a L hip fracture about 10 years ago and that continues to bother her. Pain is about the same as previous bout of physical therapy. She fell and fractured her right hip when she stood up alone and Oh was outside. Treatment Goals Patient/Caregiver Goals Strengthen legs, decrease fall risk Personal Factors Other Personal Factors That May Effect Advanced Parkinsons, Therapy/Recovery reports she has been lose weight is not eating much, he is considering a feeding tube but she is not interested in that. Prior L hip fracture with poor healing, extensive history of falls. PT-OP-C Subjective Start: 04/13/21 07:31 Freq: Status: Active Protocol: Document 05/30/21 13:00 AMB (Rec: 05/30/21 14:04 AMB [id number]) OP-PT Subjective Patient Comments Patient Comments Edgar had a tooth pulled last week and is still in pain from that. Didn't get out in the snow or ice. PT-OP-G Mobility & Gait Start: 04/13/21 07:31 Freq: Status: Active Protocol: Document 04/13/21 14:55 AMB (Rec: 04/13/21 15:08 AMB [email or web address]) OP Mobility Evaluation Bed Mobility Rolling Wale Supine to and from Sit Wale- slow Transfers Sit to Stand ModA- tends to fall posteior, cues for safety Bed to Chair Transfers stand step pivot, ModA for weightshift OP Gait Assessment Comments Gait Comments Assessed gait in //bars. Bilat genu recurvatum- tends to go into extensor tone with torso. Scissoring gait pattern. When not in extensor tone forward flexed at hips. Ambulated 10 feetx2 with ModA for weightshift and to prevent posterior LOB. PT-OP-K Range of Motion Start: 04/13/21 07:31 Freq: Status: Active Protocol: Document 04/13/21 09:45 AMB (Rec: 04/13/21 15:10 AMB [email or web address]) Hip Goniometric Range of Motion Hip Right Passive Comments Neutral hip extension PT-OP-M Strength Start: 04/13/21 07:31 Freq: Status: Active Protocol: Document 04/13/21 14:55 AMB (Rec: 04/13/21 15:08 AMB [email or web address]) Hip Strength Hip Manual Muscle Testing Right Flexion (L2) 4 Good Extension (S1) 4 Good Abduction 4 Good Left Flexion (L2) 3- Fair- Extension (S1) 2 Poor Abduction 2- Poor- Knee Strength Knee Manual Muscle Testing Left Comments 4/5 bilat knee flexion, extension, ankle dorsiflexion PT-OP-Q Treatments Start: 04/13/21 07:31 Freq: Status: Active Protocol: Document 05/30/21 13:00 AMB (Rec: 05/30/21 14:04 AMB [id number]) Gym Equipment Shuttle Recovery Bilateral Squats Details 62# Reps/Time 3x10 Therapeutic Exercises Sitting Exercises 5 Sitting Exercise Name hamstring curls in seated Resistance #2 band Reps/Minutes 2x10 4 Sitting Exercise Name rows in seated Resistance #2 band Reps/Minutes 2x10 3 Sitting Exercise Name hip abduction against band Side bilateral Resistance #3 2 Sitting Exercise Name knee extension in seated Side left Resistance 2# Comments x 20 cues to keep torso upright, not fall into extension 1 Sitting Exercise Name ankle pumps in seated Reps/Minutes 10 Therapeutic Activity Therapeutic Activity Tranfers Comments 1. transferring from mat table to chair. Wale with stand pivot transfer Gait Training Gait Activity 1 Description 4WW Level of Assistance CGA-Min A Surface 2x100 Comments walking and turning ModA for turns, posture at end of gait PT-OP-T Assessment and Plan Start: 04/13/21 07:31 Freq: Status: Active Protocol: Document 05/30/21 13:00 AMB (Rec: 05/30/21 14:04 [facility] [id number]) Physical Therapy Assessment Assessment Summary Assessment Sy had a more difficult day today, pain from recent oral surgery may be increasing tone as significantly more scissoring gait. Physical Therapy Plan Next Visit Focus/Plan Next Note Type Treatment Note Next Visit Plan Continues standing HEP, walking // bars, promote upright posture, transfers R>L .
--- NOTE | 2021-06-01 17:05 | PT.OTN ---
Current Diagnoses Parkinson's disease (06/01/21) Pain in unspecified hip (06/01/21) Other abnormalities of gait and mobility (06/01/21) History of falling (06/01/21) Physical Therapy Treatment Note PT-OP-A Visit Information Start: 04/13/21 07:31 Freq: Status: Active Protocol: Document 06/01/21 13:53 MA (Rec: 06/01/21 14:36 MA [id number]) Out-Patient Physical Therapy Visit Information Visit Information Visit Type Treatment Note Visit Start Time 13:45 Visit Stop Time 14:30 Total Visit Minutes 45 Visit Number 10 Number of PASTRY WRAPPER Visits 1 PT-OP-B Current Condition Start: 04/13/21 07:31 Freq: Status: Active Protocol: Document 04/13/21 09:46 AMB (Rec: 04/13/21 10:25 AMB [id number]) Current Condition History of Current Condition Onset Date 11/06/20 Current Complaints Advanced Parkinsons History of Current Condition Sy attends physical therapy after fracturing her R hip in a fall in October. She then went to rehab and has been having home health. She is accompanied by her Oh. He states that his goal for her is strengthening. He does report one fall at the care center, but no falls since returning home. She did have a L hip fracture about 10 years ago and that continues to bother her. Pain is about the same as previous bout of physical therapy. She fell and fractured her right hip when she stood up alone and Oh was outside. Treatment Goals Patient/Caregiver Goals Strengthen legs, decrease fall risk Personal Factors Other Personal Factors That May Effect Advanced Parkinsons, Therapy/Recovery reports she has been lose weight is not eating much, he is considering a feeding tube but she is not interested in that. Prior L hip fracture with poor healing, extensive history of falls. PT-OP-C Subjective Start: 04/13/21 07:31 Freq: Status: Active Protocol: Document 06/01/21 13:53 MA (Rec: 06/01/21 14:36 MA [id number]) OP-PT Subjective Patient Comments Patient Comments Her mouth is feeling better today. PT-OP-G Mobility & Gait Start: 04/13/21 07:31 Freq: Status: Active Protocol: Document 04/13/21 14:55 AMB (Rec: 04/13/21 15:08 AMB [email or web address]) OP Mobility Evaluation Bed Mobility Rolling Wale Supine to and from Sit Wale- slow Transfers Sit to Stand ModA- tends to fall posteior, cues for safety Bed to Chair Transfers stand step pivot, ModA for weightshift OP Gait Assessment Comments Gait Comments Assessed gait in //bars. Bilat genu recurvatum- tends to go into extensor tone with torso. Scissoring gait pattern. When not in extensor tone forward flexed at hips. Ambulated 10 feetx2 with ModA for weightshift and to prevent posterior LOB. PT-OP-K Range of Motion Start: 04/13/21 07:31 Freq: Status: Active Protocol: Document 04/13/21 09:45 AMB (Rec: 04/13/21 15:10 AMB [email or web address]) Hip Goniometric Range of Motion Hip Right Passive Comments Neutral hip extension PT-OP-M Strength Start: 04/13/21 07:31 Freq: Status: Active Protocol: Document 04/13/21 14:55 AMB (Rec: 04/13/21 15:08 AMB [email or web address]) Hip Strength Hip Manual Muscle Testing Right Flexion (L2) 4 Good Extension (S1) 4 Good Abduction 4 Good Left Flexion (L2) 3- Fair- Extension (S1) 2 Poor Abduction 2- Poor- Knee Strength Knee Manual Muscle Testing Left Comments 4/5 bilat knee flexion, extension, ankle dorsiflexion PT-OP-Q Treatments Start: 04/13/21 07:31 Freq: Status: Active Protocol: Document 06/01/21 13:53 MA (Rec: 06/01/21 14:36 MA [id number]) Gym Equipment Shuttle Recovery Bilateral Squats Details 62# Reps/Time 3x12 Therapeutic Exercises Sitting Exercises 5 Sitting Exercise Name hamstring curls in seated Resistance #3 band Reps/Minutes 2x10 3 Sitting Exercise Name hip abduction against band Side bilateral Resistance #3 2 Sitting Exercise Name knee extension in seated Side left Resistance 2# Comments x 20 cues to keep torso upright, not fall into extension 1 Sitting Exercise Name ankle pumps in seated Reps/Minutes 10 Therapeutic Activity Therapeutic Activity Tranfers Comments 1. transferring from mat table to wheelchair. Wale with stand pivot transfer Gait Training Gait Activity 1 Description 4WW Level of Assistance CGA-Min A Surface 2x100 Comments walking and turning ModA for turns, posture at end of gait Walking in // bars Description fwd/bkwd/ lateral Distance/Duration 6x length of // bars Treatment Focus thoracic extension Comments cues for posture throughout // bars standing Description marches Device Used // bars at 37 inch high Level of Assistance CGA Distance/Duration 5 min Treatment Focus BIG steps, increasing step height Comments posture exercise: hands posterior on // bars working on thoracic extension PT-OP-T Assessment and Plan Start: 04/13/21 07:31 Freq: Status: Active Protocol: Document 06/01/21 13:53 MA (Rec: 06/01/21 14:36 MA [id number]) Physical Therapy Assessment Goals Three Impairment Transfers Short Term Goal (STG) Sy will complete a sit to stand transfer with Wale without significant posterior LOB. STG Duration 4 weeks Drawing Hand Goal (LTG) Sy will roll over in bed and move from sidelying to sitting with Wale. LTG Duration 12 weeks Two Impairment HEP Short Term Goal (STG) Sy will be independent with a HEP in seated for her leg strength and coordination. STG Duration 6 weeks One Impairment Gait Short Term Goal (STG) Sy will ambulate with a 4WW for 100 feet with Wale and without an increase in her bilateral hip pain. STG Duration 6 weeks Assessment Summary Assessment Pt is able to complete more exercises in standing this session vs Friday's session after her oral surgery. She continues to fatigue quickly when walking in // bars but only requires short seated rest breaks before contiuing on with exercises. Her transfers have improved bilaterally between her wheelchair and the mat table and she only requires Min A vs Mod A previously when transferring to her R side. During gait with 4WW, pt requries heavy cues to improve scissoring gait pattern. She reports she has not been working on walking at home but has been doing UE exercises in seated and LE exercises in supine. Physical Therapy Plan Frequency and Duration Frequency of Treatment 2x/Week Duration of Treatment 12 weeks Plan of Care Start Date 04/13/21 Plan of Care End Date 07/06/21 Therapeutic Interventions Therapeutic Interventions Balance Training,Gait Training ,Home Exercise Program,Joint Mobilizations,Manual Therapy, Neuromuscular Re-education, Self-Care/Home Management,Soft Tissue Mobilization, Therapeutic Activities, Therapeutic Exercises Modalities Cold Pack/Ice Massage,Electric Stimulation,Hot Packs Next Visit Focus/Plan Next Note Type Treatment Note Next Visit Plan Continues standing HEP, walking // bars, promote upright posture, transfers R>L .
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
--- NOTE | 2021-06-13 15:51 | PT.OTN ---
Current Diagnoses Parkinson's disease (06/13/21) Pain in unspecified hip (06/13/21) Other abnormalities of gait and mobility (06/13/21) History of falling (06/13/21) Physical Therapy Treatment Note PT-OP-A Visit Information Start: 04/13/21 07:31 Freq: Status: Active Protocol: Document 06/13/21 12:57 AMB (Rec: 06/13/21 13:37 AMB [id number]) Out-Patient Physical Therapy Visit Information Visit Information Visit Type Treatment Note Visit Start Time 13:00 Visit Stop Time 13:45 Total Visit Minutes 45 Visit Number 12 PT-OP-B Current Condition Start: 04/13/21 07:31 Freq: Status: Active Protocol: Document 04/13/21 09:46 AMB (Rec: 04/13/21 10:25 AMB [id number]) Current Condition History of Current Condition Onset Date 11/06/20 Current Complaints Advanced Parkinsons History of Current Condition Sy attends physical therapy after fracturing her R hip in a fall in October. She then went to rehab and has been having home health. She is accompanied by her Oh. He states that his goal for her is strengthening. He does report one fall at the care center, but no falls since returning home. She did have a L hip fracture about 10 years ago and that continues to bother her. Pain is about the same as previous bout of physical therapy. She fell and fractured her right hip when she stood up alone and Oh was outside. Treatment Goals Patient/Caregiver Goals Strengthen legs, decrease fall risk Personal Factors Other Personal Factors That May Effect Advanced Parkinsons, Therapy/Recovery reports she has been lose weight is not eating much, he is considering a feeding tube but she is not interested in that. Prior L hip fracture with poor healing, extensive history of falls. PT-OP-C Subjective Start: 04/13/21 07:31 Freq: Status: Active Protocol: Document 06/13/21 13:00 AMB (Rec: 06/13/21 15:50 AMB [id number]) OP-PT Subjective Patient Comments Patient Comments Sy says things are about the same, a little bit of oral surgery discomfort, but not bad. PT-OP-G Mobility & Gait Start: 04/13/21 07:31 Freq: Status: Active Protocol: Document 04/13/21 14:55 AMB (Rec: 04/13/21 15:08 AMB [email or web address]) OP Mobility Evaluation Bed Mobility Rolling Wale Supine to and from Sit Wale- slow Transfers Sit to Stand ModA- tends to fall posteior, cues for safety Bed to Chair Transfers stand step pivot, ModA for weightshift OP Gait Assessment Comments Gait Comments Assessed gait in //bars. Bilat genu recurvatum- tends to go into extensor tone with torso. Scissoring gait pattern. When not in extensor tone forward flexed at hips. Ambulated 10 feetx2 with ModA for weightshift and to prevent posterior LOB. PT-OP-K Range of Motion Start: 04/13/21 07:31 Freq: Status: Active Protocol: Document 04/13/21 09:45 AMB (Rec: 04/13/21 15:10 AMB [email or web address]) Hip Goniometric Range of Motion Hip Right Passive Comments Neutral hip extension PT-OP-M Strength Start: 04/13/21 07:31 Freq: Status: Active Protocol: Document 04/13/21 14:55 AMB (Rec: 04/13/21 15:08 AMB [email or web address]) Hip Strength Hip Manual Muscle Testing Right Flexion (L2) 4 Good Extension (S1) 4 Good Abduction 4 Good Left Flexion (L2) 3- Fair- Extension (S1) 2 Poor Abduction 2- Poor- Knee Strength Knee Manual Muscle Testing Left Comments 4/5 bilat knee flexion, extension, ankle dorsiflexion PT-OP-Q Treatments Start: 04/13/21 07:31 Freq: Status: Active Protocol: Document 06/13/21 13:00 AMB (Rec: 06/13/21 15:50 AMB [id number]) Gym Equipment Shuttle Recovery Bilateral Squats Details 62# Reps/Time 3x12 Therapeutic Activity Therapeutic Activity Tranfers Reps/Minutes 4x Comments 1. transferring from mat table to wheelchair. Wale with stand pivot transfer Gait Training Gait Activity Walking in // bars Description fwd/bkwd/ lateral Distance/Duration 6x length of // bars Treatment Focus thoracic extension Comments cues for posture throughout // bars standing Device Used // bars at 37 inch high Level of Assistance CGA Distance/Duration 5 min Treatment Focus BIG steps, increasing step height/length Comments posture exercise: hands posterior on // bars working on thoracic extension Neuro Re-Education Treatment Balance Activities 2 Comments seated forward flexion and rotation with focus on amplitude of movement PT-OP-T Assessment and Plan Start: 04/13/21 07:31 Freq: Status: Active Protocol: Document 06/13/21 13:00 AMB (Rec: 06/13/21 15:50 AMB [id number]) Physical Therapy Assessment Goals Three Impairment Transfers Short Term Goal (STG) Edgar will complete a sit to stand transfer with Wale without significant posterior LOB. STG Duration 4 weeks Ignition Specialist Goal (LTG) Sy will roll over in bed and move from sidelying to sitting with Wale. LTG Duration 12 weeks Two Impairment HEP Short Term Goal (STG) Edgar will be independent with a HEP in seated for her leg strength and coordination. STG Duration 6 weeks One Impairment Gait Short Term Goal (STG) Edgar will ambulate with a 4WW for 100 feet with Wale and without an increase in her bilateral hip pain. STG Duration 6 weeks Assessment Summary Assessment Edgar did well today with exercise, she continues to have a difficult time with standing upright and tends to fall forward. Physical Therapy Plan Frequency and Duration Frequency of Treatment 2x/Week Duration of Treatment 12 weeks Plan of Care Start Date 04/13/21 Plan of Care End Date 07/06/21 Therapeutic Interventions Therapeutic Interventions Balance Training,Gait Training ,Home Exercise Program,Joint Mobilizations,Manual Therapy, Neuromuscular Re-education, Self-Care/Home Management,Soft Tissue Mobilization, Therapeutic Activities, Therapeutic Exercises Modalities Cold Pack/Ice Massage,Electric Stimulation,Hot Packs Next Visit Focus/Plan Next Note Type Treatment Note Next Visit Plan Continues standing HEP, walking // bars, promote upright posture, transfers R>L .
--- NOTE | 2021-06-15 17:11 | PT.OTN ---
Current Diagnoses Parkinson's disease (06/15/21) Pain in unspecified hip (06/15/21) Other abnormalities of gait and mobility (06/15/21) History of falling (06/15/21) Physical Therapy Treatment Note PT-OP-A Visit Information Start: 04/13/21 07:31 Freq: Status: Active Protocol: Document 06/15/21 13:40 MA (Rec: 06/15/21 14:31 MA [id number]) Out-Patient Physical Therapy Visit Information Visit Information Visit Type Treatment Note Visit Start Time 13:45 Visit Stop Time 14:28 Total Visit Minutes 43 Visit Number 13 Number of CONSULTANT INTERN Visits 1 PT-OP-B Current Condition Start: 04/13/21 07:31 Freq: Status: Active Protocol: Document 04/13/21 09:46 AMB (Rec: 04/13/21 10:25 AMB [id number]) Current Condition History of Current Condition Onset Date 11/06/20 Current Complaints Advanced Parkinsons History of Current Condition Edgar attends physical therapy after fracturing her R hip in a fall in October. She then went to rehab and has been having home health. She is accompanied by her Oh. He states that his goal for her is strengthening. He does report one fall at the care center, but no falls since returning home. She did have a L hip fracture about 10 years ago and that continues to bother her. Pain is about the same as previous bout of physical therapy. She fell and fractured her right hip when she stood up alone and Oh was outside. Treatment Goals Patient/Caregiver Goals Strengthen legs, decrease fall risk Personal Factors Other Personal Factors That May Effect Advanced Parkinsons, Therapy/Recovery reports she has been lose weight is not eating much, he is considering a feeding tube but she is not interested in that. Prior L hip fracture with poor healing, extensive history of falls. PT-OP-C Subjective Start: 04/13/21 07:31 Freq: Status: Active Protocol: Document 06/15/21 13:40 MA (Rec: 06/15/21 14:31 MA [id number]) OP-PT Subjective Patient Comments Patient Comments Sy has nothing new to report. When asked if she is ever fatigued for more than a day after therapy she states no. states she just rests after therapy but is never sore the next day. PT-OP-G Mobility & Gait Start: 04/13/21 07:31 Freq: Status: Active Protocol: Document 04/13/21 14:55 AMB (Rec: 04/13/21 15:08 AMB [email or web address]) OP Mobility Evaluation Bed Mobility Rolling Wale Supine to and from Sit Wale- slow Transfers Sit to Stand ModA- tends to fall posteior, cues for safety Bed to Chair Transfers stand step pivot, ModA for weightshift OP Gait Assessment Comments Gait Comments Assessed gait in //bars. Bilat genu recurvatum- tends to go into extensor tone with torso. Scissoring gait pattern. When not in extensor tone forward flexed at hips. Ambulated 10 feetx2 with ModA for weightshift and to prevent posterior LOB. PT-OP-K Range of Motion Start: 04/13/21 07:31 Freq: Status: Active Protocol: Document 04/13/21 09:45 AMB (Rec: 04/13/21 15:10 AMB [email or web address]) Hip Goniometric Range of Motion Hip Right Passive Comments Neutral hip extension PT-OP-M Strength Start: 04/13/21 07:31 Freq: Status: Active Protocol: Document 04/13/21 14:55 AMB (Rec: 04/13/21 15:08 AMB [email or web address]) Hip Strength Hip Manual Muscle Testing Right Flexion (L2) 4 Good Extension (S1) 4 Good Abduction 4 Good Left Flexion (L2) 3- Fair- Extension (S1) 2 Poor Abduction 2- Poor- Knee Strength Knee Manual Muscle Testing Left Comments 4/5 bilat knee flexion, extension, ankle dorsiflexion PT-OP-Q Treatments Start: 04/13/21 07:31 Freq: Status: Active Protocol: Document 06/15/21 13:40 MA (Rec: 06/15/21 14:31 MA [id number]) Therapeutic Exercises Supine Exercises SLR Side bilateral Equipment Used 2# ankle weights Reps/Minutes 2x10 Comments watching for adduction as pt lifts Sitting Exercises 6 Sitting Exercise Name seated marches Side bilateral Equipment Used 2# ankle weights Reps/Minutes 2x10 Comments while on rollator during gait training 4 Sitting Exercise Name rows in seated Resistance #2 band Equipment Used sitting in rollator Reps/Minutes 3x10 2 Sitting Exercise Name knee extension in seated Side left Resistance 2# Comments x 20 cues to keep torso upright, not fall into extension 1 Sitting Exercise Name ankle pumps in seated Reps/Minutes 10 Comments heel and toe lifts while seated on rollator during gait training Therapeutic Activity Therapeutic Activity Posture Name seated posture Reps/Minutes 5' Comments 1. reaching fwd to tap target with straight back and returning to upright position. 2. reaching laterally 3. reaching to floor Gait Training Gait Activity 1 Description 4WW Level of Assistance CGA-Min A Surface all around gym to each station today Treatment Focus fwd and backwards stepping, focusing on amplitude Comments practicing turning to sit on rollator and then standing back up to walk Walking in // bars Description lateral Distance/Duration 6x length of // bars Treatment Focus thoracic extension Comments cues for posture throughout PT-OP-T Assessment and Plan Start: 04/13/21 07:31 Freq: Status: Active Protocol: Document 06/15/21 13:40 MA (Rec: 06/15/21 14:31 MA [id number]) Physical Therapy Assessment Goals Three Impairment Transfers Short Term Goal (STG) Sy will complete a sit to stand transfer with Wale without significant posterior LOB. STG Duration 4 weeks Buffer Copper Goal (LTG) Sy will roll over in bed and move from sidelying to sitting with Wale. LTG Duration 12 weeks Two Impairment HEP Short Term Goal (STG) Sy will be independent with a HEP in seated for her leg strength and coordination. STG Duration 6 weeks One Impairment Gait Short Term Goal (STG) Sy will ambulate with a 4WW for 100 feet with Wale and without an increase in her bilateral hip pain. STG Duration 6 weeks Assessment Summary Assessment Had pt walk between every station today with rollator and practice turning to sit on rollator seat at each station for seated exercises. Pt will always turn to her L to sit unless otherwise cued. Pt showed improved posture when cued to keep her back against rollator bar during seated exercises. Sy denies any lasting fatigue after therapy session and agrees that she usually only needs a nap after therapy but does not show any increased fatigue the day after therapy. Pt was able to do more standing exercises and increase gait distance today when intermixed with seated ther ex. Physical Therapy Plan Frequency and Duration Frequency of Treatment 2x/Week Duration of Treatment 12 weeks Plan of Care Start Date 04/13/21 Plan of Care End Date 07/06/21 Therapeutic Interventions Therapeutic Interventions Balance Training,Gait Training ,Home Exercise Program,Joint Mobilizations,Manual Therapy, Neuromuscular Re-education, Self-Care/Home Management,Soft Tissue Mobilization, Therapeutic Activities, Therapeutic Exercises Modalities Cold Pack/Ice Massage,Electric Stimulation,Hot Packs Next Visit Focus/Plan Next Note Type Treatment Note Next Visit Plan Continues standing HEP, walking // bars, promote upright posture, transfers R>L .
--- NOTE | 2021-06-20 15:04 | PT.OTN ---
Current Diagnoses Parkinson's disease (06/20/21) Pain in unspecified hip (06/20/21) Other abnormalities of gait and mobility (06/20/21) History of falling (06/20/21) Physical Therapy Treatment Note PT-OP-A Visit Information Start: 04/13/21 07:31 Freq: Status: Active Protocol: Document 06/20/21 13:00 AMB (Rec: 06/20/21 13:47 AMB [id number]) Out-Patient Physical Therapy Visit Information Visit Information Visit Type Treatment Note Visit Start Time 13:00 Visit Stop Time 13:45 Total Visit Minutes 43 Visit Number 14 PT-OP-B Current Condition Start: 04/13/21 07:31 Freq: Status: Active Protocol: Document 04/13/21 09:46 AMB (Rec: 04/13/21 10:25 AMB [id number]) Current Condition History of Current Condition Onset Date 11/06/20 Current Complaints Advanced Parkinsons History of Current Condition Edgar attends physical therapy after fracturing her R hip in a fall in October. She then went to rehab and has been having home health. She is accompanied by her Oh. He states that his goal for her is strengthening. He does report one fall at the care center, but no falls since returning home. She did have a L hip fracture about 10 years ago and that continues to bother her. Pain is about the same as previous bout of physical therapy. She fell and fractured her right hip when she stood up alone and Oh was outside. Treatment Goals Patient/Caregiver Goals Strengthen legs, decrease fall risk Personal Factors Other Personal Factors That May Effect Advanced Parkinsons, Therapy/Recovery reports she has been lose weight is not eating much, he is considering a feeding tube but she is not interested in that. Prior L hip fracture with poor healing, extensive history of falls. PT-OP-C Subjective Start: 04/13/21 07:31 Freq: Status: Active Protocol: Document 06/20/21 13:00 AMB (Rec: 06/20/21 13:47 AMB [id number]) OP-PT Subjective Patient Comments Patient Comments Oh reports that Edgar's deep brain stimulator's battery will need to be replaced, it is only 3 years old, so that is disappointing as it does take an in office surgery to replace them. PT-OP-G Mobility & Gait Start: 04/13/21 07:31 Freq: Status: Active Protocol: Document 04/13/21 14:55 AMB (Rec: 04/13/21 15:08 AMB [email or web address]) OP Mobility Evaluation Bed Mobility Rolling Wale Supine to and from Sit Wale- slow Transfers Sit to Stand ModA- tends to fall posteior, cues for safety Bed to Chair Transfers stand step pivot, ModA for weightshift OP Gait Assessment Comments Gait Comments Assessed gait in //bars. Bilat genu recurvatum- tends to go into extensor tone with torso. Scissoring gait pattern. When not in extensor tone forward flexed at hips. Ambulated 10 feetx2 with ModA for weightshift and to prevent posterior LOB. PT-OP-K Range of Motion Start: 04/13/21 07:31 Freq: Status: Active Protocol: Document 04/13/21 09:45 AMB (Rec: 04/13/21 15:10 AMB [email or web address]) Hip Goniometric Range of Motion Hip Right Passive Comments Neutral hip extension PT-OP-M Strength Start: 04/13/21 07:31 Freq: Status: Active Protocol: Document 04/13/21 14:55 AMB (Rec: 04/13/21 15:08 AMB [email or web address]) Hip Strength Hip Manual Muscle Testing Right Flexion (L2) 4 Good Extension (S1) 4 Good Abduction 4 Good Left Flexion (L2) 3- Fair- Extension (S1) 2 Poor Abduction 2- Poor- Knee Strength Knee Manual Muscle Testing Left Comments 4/5 bilat knee flexion, extension, ankle dorsiflexion PT-OP-Q Treatments Start: 04/13/21 07:31 Freq: Status: Active Protocol: Document 06/20/21 13:00 AMB (Rec: 06/20/21 15:03 AMB [id number]) Gym Equipment Shuttle Recovery Bilateral Squats Details 50# Reps/Time 3x12 Therapeutic Exercises Sitting Exercises 6 Sitting Exercise Name seated marches Side bilateral Equipment Used 2# ankle weights Reps/Minutes 2x10 Comments while on rollator 4 Sitting Exercise Name rows in seated Resistance #2 band Equipment Used sitting in rollator Reps/Minutes 3x10 3 Sitting Exercise Name hip abd Resistance #3 t band Reps/Minutes 2x10 2 Sitting Exercise Name knee extension in seated Side left Resistance 2# Comments x 20 cues to keep torso upright, not fall into extension Standing Exercises 3 Standing Exercise Name sit to stand Reps/Minutes 2x5 Comments cued forward lean, first set from w/c seconds set from plint Gait Training Gait Activity 1 Description 4WW Level of Assistance CGA-Min A Surface 150' Treatment Focus fwd and backwards stepping, focusing on amplitude Comments practicing turning to sit on rollator and then standing back up to walk // bars standing Device Used // bars at 37 inch high Level of Assistance CGA Distance/Duration 5 min Treatment Focus BIG steps, increasing step height/length Comments posture exercise: hands posterior on // bars working on thoracic extension PT-OP-T Assessment and Plan Start: 04/13/21 07:31 Freq: Status: Active Protocol: Document 06/20/21 13:00 AMB (Rec: 06/20/21 13:47 AMB [id number]) Physical Therapy Assessment Goals Three Impairment Transfers Short Term Goal (STG) Edgar will complete a sit to stand transfer with Wale without significant posterior LOB. STG Duration 4 weeks [employer] Liaison Officer Goal (LTG) Sy will roll over in bed and move from sidelying to sitting with Wale. LTG Duration 12 weeks Two Impairment HEP Short Term Goal (STG) Edgar will be independent with a HEP in seated for her leg strength and coordination. STG Duration 6 weeks One Impairment Gait Short Term Goal (STG) Edgar will ambulate with a 4WW for 100 feet with Wale and without an increase in her bilateral hip pain. STG Duration 6 weeks Assessment Summary Assessment Continued mix of seated and standing exercises with gait and balance/transfer exercises . Edgar was quite tired today and continued to have a difficult time with standing posture, and sometimes even seated posture. Physical Therapy Plan Next Visit Focus/Plan Next Note Type Treatment Note Next Visit Plan Continues standing HEP, walking // bars, promote upright posture, transfers R>L .
--- NOTE | 2021-06-22 15:41 | PT.OTN ---
Current Diagnoses Parkinson's disease (06/22/21) Pain in unspecified hip (06/22/21) Other abnormalities of gait and mobility (06/22/21) History of falling (06/22/21) Physical Therapy Treatment Note PT-OP-A Visit Information Start: 04/13/21 07:31 Freq: Status: Active Protocol: Document 06/22/21 13:00 AMB (Rec: 06/22/21 13:37 AMB [id number]) Out-Patient Physical Therapy Visit Information Visit Information Visit Type Treatment Note Visit Start Time 13:00 Visit Stop Time 13:45 Total Visit Minutes 43 Visit Number 15 PT-OP-B Current Condition Start: 04/13/21 07:31 Freq: Status: Active Protocol: Document 04/13/21 09:46 AMB (Rec: 04/13/21 10:25 AMB [id number]) Current Condition History of Current Condition Onset Date 11/06/20 Current Complaints Advanced Parkinsons History of Current Condition Sy attends physical therapy after fracturing her R hip in a fall in October. She then went to rehab and has been having home health. She is accompanied by her Oh. He states that his goal for her is strengthening. He does report one fall at the care center, but no falls since returning home. She did have a L hip fracture about 10 years ago and that continues to bother her. Pain is about the same as previous bout of physical therapy. She fell and fractured her right hip when she stood up alone and Oh was outside. Treatment Goals Patient/Caregiver Goals Strengthen legs, decrease fall risk Personal Factors Other Personal Factors That May Effect Advanced Parkinsons, Therapy/Recovery reports she has been lose weight is not eating much, he is considering a feeding tube but she is not interested in that. Prior L hip fracture with poor healing, extensive history of falls. PT-OP-C Subjective Start: 04/13/21 07:31 Freq: Status: Active Protocol: Document 06/22/21 13:00 AMB (Rec: 06/22/21 13:37 AMB [id number]) OP-PT Subjective Patient Comments Patient Comments Oh states that they are going to go on hospice and have a virtual meeting about it on Friday. Are wondering about how that works with outpatient. No longer expecting to change the batteries in the DBS. PT-OP-G Mobility & Gait Start: 04/13/21 07:31 Freq: Status: Active Protocol: Document 04/13/21 14:55 AMB (Rec: 04/13/21 15:08 AMB [email or web address]) OP Mobility Evaluation Bed Mobility Rolling Wale Supine to and from Sit Wale- slow Transfers Sit to Stand ModA- tends to fall posteior, cues for safety Bed to Chair Transfers stand step pivot, ModA for weightshift OP Gait Assessment Comments Gait Comments Assessed gait in //bars. Bilat genu recurvatum- tends to go into extensor tone with torso. Scissoring gait pattern. When not in extensor tone forward flexed at hips. Ambulated 10 feetx2 with ModA for weightshift and to prevent posterior LOB. PT-OP-K Range of Motion Start: 04/13/21 07:31 Freq: Status: Active Protocol: Document 04/13/21 09:45 AMB (Rec: 04/13/21 15:10 AMB [email or web address]) Hip Goniometric Range of Motion Hip Right Passive Comments Neutral hip extension PT-OP-M Strength Start: 04/13/21 07:31 Freq: Status: Active Protocol: Document 04/13/21 14:55 AMB (Rec: 04/13/21 15:08 AMB [email or web address]) Hip Strength Hip Manual Muscle Testing Right Flexion (L2) 4 Good Extension (S1) 4 Good Abduction 4 Good Left Flexion (L2) 3- Fair- Extension (S1) 2 Poor Abduction 2- Poor- Knee Strength Knee Manual Muscle Testing Left Comments 4/5 bilat knee flexion, extension, ankle dorsiflexion PT-OP-Q Treatments Start: 04/13/21 07:31 Freq: Status: Active Protocol: Document 06/22/21 13:00 AMB (Rec: 06/22/21 15:36 AMB [id number]) Gym Equipment Shuttle Recovery Bilateral Squats Details 50# Reps/Time 3x15 Therapeutic Exercises Sitting Exercises 4 Sitting Exercise Name rows in seated Resistance #2 band Equipment Used sitting in rollator Reps/Minutes 3x10 3 Sitting Exercise Name hip abd Resistance #3 t band Reps/Minutes 2x10 2 Sitting Exercise Name knee extension in seated Side left Resistance 2# Comments x 20 cues to keep torso upright, not fall into extension Standing Exercises 3 Standing Exercise Name sit to stand Reps/Minutes 2x5 Comments cued forward lean, first set from w/c seconds set from plinth Gait Training Gait Activity 1 Description 4WW Level of Assistance CGA-Min A Surface 150', 50' Treatment Focus fwd and backwards stepping, focusing on amplitude Comments practicing turning to sit on rollator and then standing back up to walk PT-OP-T Assessment and Plan Start: 04/13/21 07:31 Freq: Status: Active Protocol: Document 06/22/21 13:00 AMB (Rec: 06/22/21 13:37 AMB [id number]) Physical Therapy Assessment Goals Three Impairment Transfers Short Term Goal (STG) Sy will complete a sit to stand transfer with Wale without significant posterior LOB. STG Duration 4 weeks- NOT MET Marshmallow Machine Operator Goal (LTG) Sy will roll over in bed and move from sidelying to sitting with Wale. LTG Duration 12 weeks- depends on what side Two Impairment HEP Short Term Goal (STG) Edgar will be independent with a HEP in seated for her leg strength and coordination. STG Duration 6 weeks- progress made One Impairment Gait Short Term Goal (STG) Edgar will ambulate with a 4WW for 100 feet with Wale and without an increase in her bilateral hip pain. STG Duration MET Assessment Summary Assessment Sy will likely be going on hospice soon. Discussed this with her and Oh, and she is ok to continue here unless they go on home health PT/OT/ ST and then we would need to d /c. She is continuing to lose weight. Discussed this and the senior care effects on muscle strength. Oh states that we are supposed to push fluids, as her blood pressure was quite low, but it is difficult for her to drink because of the difficulty with her swallow. Her hip pain has not been significant lately, but oral pain has been worse. She continues to find value in PT to try to continue to strengthen as much as she can. Physical Therapy Plan Next Visit Focus/Plan Next Note Type Treatment Note Next Visit Plan Continues standing HEP, walking // bars, promote upright posture, transfers R>L .
--- NOTE | 2021-06-27 15:25 | PT.OTN ---
Current Diagnoses Parkinson's disease (06/27/21) Pain in unspecified hip (06/27/21) Other abnormalities of gait and mobility (06/27/21) History of falling (06/27/21) Physical Therapy Treatment Note PT-OP-A Visit Information Start: 04/13/21 07:31 Freq: Status: Active Protocol: Document 06/27/21 13:44 MA (Rec: 06/27/21 14:34 MA [id number]) Out-Patient Physical Therapy Visit Information Visit Information Visit Type Treatment Note Visit Start Time 13:45 Visit Stop Time 14:25 Total Visit Minutes 40 Visit Number 16 Number of FITTER MACHINIST Visits 1 PT-OP-B Current Condition Start: 04/13/21 07:31 Freq: Status: Active Protocol: Document 04/13/21 09:46 AMB (Rec: 04/13/21 10:25 AMB [id number]) Current Condition History of Current Condition Onset Date 11/06/20 Current Complaints Advanced Parkinsons History of Current Condition Sy attends physical therapy after fracturing her R hip in a fall in October. She then went to rehab and has been having home health. She is accompanied by her Oh. He states that his goal for her is strengthening. He does report one fall at the care center, but no falls since returning home. She did have a L hip fracture about 10 years ago and that continues to bother her. Pain is about the same as previous bout of physical therapy. She fell and fractured her right hip when she stood up alone and Oh was outside. Treatment Goals Patient/Caregiver Goals Strengthen legs, decrease fall risk Personal Factors Other Personal Factors That May Effect Advanced Parkinsons, Therapy/Recovery reports she has been lose weight is not eating much, he is considering a feeding tube but she is not interested in that. Prior L hip fracture with poor healing, extensive history of falls. PT-OP-C Subjective Start: 04/13/21 07:31 Freq: Status: Active Protocol: Document 06/27/21 13:44 MA (Rec: 06/27/21 14:34 MA [id number]) OP-PT Subjective Patient Comments Patient Comments Pt states hospice wants her to do home health PT. Oh states pt has sacral wound starting that he has put medication on. PT-OP-G Mobility & Gait Start: 04/13/21 07:31 Freq: Status: Active Protocol: Document 04/13/21 14:55 AMB (Rec: 04/13/21 15:08 AMB [email or web address]) OP Mobility Evaluation Bed Mobility Rolling Wael Supine to and from Sit Wale- slow Transfers Sit to Stand ModA- tends to fall posteior, cues for safety Bed to Chair Transfers stand step pivot, ModA for weightshift OP Gait Assessment Comments Gait Comments Assessed gait in //bars. Bilat genu recurvatum- tends to go into extensor tone with torso. Scissoring gait pattern. When not in extensor tone forward flexed at hips. Ambulated 10 feetx2 with ModA for weightshift and to prevent posterior LOB. PT-OP-K Range of Motion Start: 04/13/21 07:31 Freq: Status: Active Protocol: Document 04/13/21 09:45 AMB (Rec: 04/13/21 15:10 AMB [email or web address]) Hip Goniometric Range of Motion Hip Right Passive Comments Neutral hip extension PT-OP-M Strength Start: 04/13/21 07:31 Freq: Status: Active Protocol: Document 04/13/21 14:55 AMB (Rec: 04/13/21 15:08 AMB [email or web address]) Hip Strength Hip Manual Muscle Testing Right Flexion (L2) 4 Good Extension (S1) 4 Good Abduction 4 Good Left Flexion (L2) 3- Fair- Extension (S1) 2 Poor Abduction 2- Poor- Knee Strength Knee Manual Muscle Testing Left Comments 4/5 bilat knee flexion, extension, ankle dorsiflexion PT-OP-Q Treatments Start: 04/13/21 07:31 Freq: Status: Active Protocol: Document 06/27/21 13:44 MA (Rec: 06/27/21 14:34 MA [id number]) Gym Equipment Shuttle Recovery Bilateral Squats Details 50#, 62# Reps/Time 3x15 Gait Training Gait Activity 1 Description 4WW Level of Assistance CGA-Min A Surface 150' x2 Treatment Focus fwd and backwards stepping, focusing on amplitude Comments practicing turning to sit on rollator and then standing back up to walk Walking in // bars Description fwd, backward, lateral, marching in place Distance/Duration 10x length of // bars Treatment Focus thoracic extension Comments cues for posture throughout // bars standing Device Used // bars at 37 inch high Level of Assistance CGA Distance/Duration 5 min Treatment Focus BIG steps, increasing step height/length Comments posture exercise: hands posterior on // bars working on thoracic extension Self-Care/Home Management Treatment Education Caregiver Education Educated on watching sacral wound for further irritation and how to position pt with pillows to keep off wound while in recliner at home. PT-OP-T Assessment and Plan Start: 04/13/21 07:31 Freq: Status: Active Protocol: Document 06/27/21 13:44 MA (Rec: 06/27/21 14:34 MA [id number]) Physical Therapy Assessment Goals Three Impairment Transfers Short Term Goal (STG) Sy will complete a sit to stand transfer with Wale without significant posterior LOB. STG Duration 4 weeks- NOT MET Machine Buffer Goal (LTG) Sy will roll over in bed and move from sidelying to sitting with Wale. LTG Duration 12 weeks- depends on what side Two Impairment HEP Short Term Goal (STG) Sy will be independent with a HEP in seated for her leg strength and coordination. STG Duration 6 weeks- progress made One Impairment Gait Short Term Goal (STG) Sy will ambulate with a 4WW for 100 feet with Wale and without an increase in her bilateral hip pain. STG Duration MET Assessment Summary Assessment Sy requires frequent cues this session to avoid dragging R foot and adducting RLE during gait and activities in // bars . states that pt has sacral wound at end of session that he has been putting medication on. Encouraged to position pt in her chair at home with pillows to assit in lumbar and thoracic extension so pt is not putting pressure on superior sacral wound. Pt will be going on hospice and will ensure nurse is aware of wound . Physical Therapy Plan Frequency and Duration Frequency of Treatment 2x/Week Duration of Treatment 12 weeks Plan of Care Start Date 04/13/21 Plan of Care End Date 07/06/21 Therapeutic Interventions Therapeutic Interventions Balance Training,Gait Training ,Home Exercise Program,Joint Mobilizations,Manual Therapy, Neuromuscular Re-education, Self-Care/Home Management,Soft Tissue Mobilization, Therapeutic Activities, Therapeutic Exercises Modalities Cold Pack/Ice Massage,Electric Stimulation,Hot Packs Next Visit Focus/Plan Next Note Type Treatment Note Next Visit Plan Assess sacral wound. Continues standing HEP, walking // bars , promote upright posture, transfers R>L.
--- NOTE | 2021-06-29 15:12 | PT.OTN ---
Current Diagnoses Parkinson's disease (06/29/21) Pain in unspecified hip (06/29/21) Other abnormalities of gait and mobility (06/29/21) History of falling (06/29/21) Physical Therapy Treatment Note PT-OP-A Visit Information Start: 04/13/21 07:31 Freq: Status: Active Protocol: Document 06/29/21 13:46 AMB (Rec: 06/29/21 14:53 AMB [id number]) Out-Patient Physical Therapy Visit Information Visit Information Visit Type Treatment Note Visit Start Time 13:45 Visit Stop Time 14:30 Total Visit Minutes 45 Visit Number 17 PT-OP-B Current Condition Start: 04/13/21 07:31 Freq: Status: Active Protocol: Document 04/13/21 09:46 AMB (Rec: 04/13/21 10:25 AMB [id number]) Current Condition History of Current Condition Onset Date 11/06/20 Current Complaints Advanced Parkinsons History of Current Condition Sy attends physical therapy after fracturing her R hip in a fall in October. She then went to rehab and has been having home health. She is accompanied by her Oh. He states that his goal for her is strengthening. He does report one fall at the care center, but no falls since returning home. She did have a L hip fracture about 10 years ago and that continues to bother her. Pain is about the same as previous bout of physical therapy. She fell and fractured her right hip when she stood up alone and Oh was outside. Treatment Goals Patient/Caregiver Goals Strengthen legs, decrease fall risk Personal Factors Other Personal Factors That May Effect Advanced Parkinsons, Therapy/Recovery reports she has been lose weight is not eating much, he is considering a feeding tube but she is not interested in that. Prior L hip fracture with poor healing, extensive history of falls. PT-OP-C Subjective Start: 04/13/21 07:31 Freq: Status: Active Protocol: Document 06/29/21 13:45 AMB (Rec: 06/29/21 15:12 AMB [id number]) OP-PT Subjective Patient Comments Patient Comments Oh states he will call Friday with hospice info. PT-OP-G Mobility & Gait Start: 04/13/21 07:31 Freq: Status: Active Protocol: Document 04/13/21 14:55 AMB (Rec: 04/13/21 15:08 AMB [email or web address]) OP Mobility Evaluation Bed Mobility Rolling Wale Supine to and from Sit Wale- slow Transfers Sit to Stand ModA- tends to fall posteior, cues for safety Bed to Chair Transfers stand step pivot, ModA for weightshift OP Gait Assessment Comments Gait Comments Assessed gait in //bars. Bilat genu recurvatum- tends to go into extensor tone with torso. Scissoring gait pattern. When not in extensor tone forward flexed at hips. Ambulated 10 feetx2 with ModA for weightshift and to prevent posterior LOB. PT-OP-K Range of Motion Start: 04/13/21 07:31 Freq: Status: Active Protocol: Document 04/13/21 09:45 AMB (Rec: 04/13/21 15:10 AMB [email or web address]) Hip Goniometric Range of Motion Hip Right Passive Comments Neutral hip extension PT-OP-M Strength Start: 04/13/21 07:31 Freq: Status: Active Protocol: Document 04/13/21 14:55 AMB (Rec: 04/13/21 15:08 AMB [email or web address]) Hip Strength Hip Manual Muscle Testing Right Flexion (L2) 4 Good Extension (S1) 4 Good Abduction 4 Good Left Flexion (L2) 3- Fair- Extension (S1) 2 Poor Abduction 2- Poor- Knee Strength Knee Manual Muscle Testing Left Comments 4/5 bilat knee flexion, extension, ankle dorsiflexion PT-OP-Q Treatments Start: 04/13/21 07:31 Freq: Status: Active Protocol: Document 06/29/21 13:45 AMB (Rec: 06/29/21 15:12 AMB [id number]) Gym Equipment Shuttle Recovery Bilateral Squats Details 50#, 62# Reps/Time 3x15 Therapeutic Exercises Sitting Exercises 3 Sitting Exercise Name hip abd Resistance #3 t band Reps/Minutes 2x10 1 Sitting Exercise Name knee flexion Resistance #2 t band Reps/Minutes 2x10 Standing Exercises 3 Standing Exercise Name sit to stand Reps/Minutes 2x5 Comments cued forward lean, first set from w/c seconds set from plinth 2 Standing Exercise Name // bars standing extension Gait Training Gait Activity 1 Description 4WW Level of Assistance CGA-Min A Surface 150' x2 Treatment Focus fwd and backwards stepping, focusing on amplitude Comments practicing turning to sit on rollator and then standing back up to walk PT-OP-T Assessment and Plan Start: 04/13/21 07:31 Freq: Status: Active Protocol: Document 06/29/21 13:45 AMB (Rec: 06/29/21 15:12 AMB [id number]) Physical Therapy Assessment Goals Three Impairment Transfers Short Term Goal (STG) Sy will complete a sit to stand transfer with Wale without significant posterior LOB. STG Duration 4 weeks- NOT MET Welder Setter Electron Beam Machine Goal (LTG) Sy will roll over in bed and move from sidelying to sitting with Wale. LTG Duration 12 weeks- depends on what side Two Impairment HEP Short Term Goal (STG) Edgar will be independent with a HEP in seated for her leg strength and coordination. STG Duration 6 weeks- progress made One Impairment Gait Short Term Goal (STG) Edgar will ambulate with a 4WW for 100 feet with Wale and without an increase in her bilateral hip pain. STG Duration MET Assessment Summary Assessment Edgar is going to be meeting with hospice nurse on Friday and Oh will call to let us know if she can continue with outpatient therapy or not today. She did well today, but at the end of the ambulation did need ModA to prevent LOB. Physical Therapy Plan Next Visit Focus/Plan Next Visit Plan Follow up on hospice, is pt going to be going on home health?
--- NOTE | 2021-07-16 15:45 | PT.OPDS ---
Current Diagnoses Parkinson's disease (06/29/21) Pain in unspecified hip (06/29/21) Other abnormalities of gait and mobility (06/29/21) History of falling (06/29/21) Visit Care Team Role Provider Type Hudson Mcmanus MD Attending Provider Physician Family Provider Primary Care Provider Referring Provider Specialty: Internal Medicine Address: [address] [place] [address], [address], [facility] Email: [email or web address] Visit Number Visit Number 17 Discharge Summary PT-OP-B Current Condition Start: 04/13/21 07:31 Freq: Status: Active Protocol: Document 04/13/21 09:46 AMB (Rec: 04/13/21 10:25 AMB [id number]) Current Condition History of Current Condition Onset Date 11/06/20 Current Complaints Advanced Parkinsons History of Current Condition Sy attends physical therapy after fracturing her R hip in a fall in October. She then went to rehab and has been having home health. She is accompanied by her Oh. He states that his goal for her is strengthening. He does report one fall at the care center, but no falls since returning home. She did have a L hip fracture about 10 years ago and that continues to bother her. Pain is about the same as previous bout of physical therapy. She fell and fractured her right hip when she stood up alone and Oh was outside. Treatment Goals Patient/Caregiver Goals Strengthen legs, decrease fall risk Personal Factors Other Personal Factors That May Effect Advanced Parkinsons, Therapy/Recovery reports she has been lose weight is not eating much, he is considering a feeding tube but she is not interested in that. Prior L hip fracture with poor healing, extensive history of falls. PT-OP-C Subjective Start: 04/13/21 07:31 Freq: Status: Active Protocol: Document 06/29/21 13:45 AMB (Rec: 06/29/21 15:12 AMB [id number]) OP-PT Subjective Patient Comments Patient Comments Oh states he will call Friday with hospice info. PT-OP-G Mobility & Gait Start: 04/13/21 07:31 Freq: Status: Active Protocol: Document 04/13/21 14:55 AMB (Rec: 04/13/21 15:08 AMB [email or web address]) OP Mobility Evaluation Bed Mobility Rolling Wale Supine to and from Sit Wale- slow Transfers Sit to Stand ModA- tends to fall posteior, cues for safety Bed to Chair Transfers stand step pivot, ModA for weightshift OP Gait Assessment Comments Gait Comments Assessed gait in //bars. Bilat genu recurvatum- tends to go into extensor tone with torso. Scissoring gait pattern. When not in extensor tone forward flexed at hips. Ambulated 10 feetx2 with ModA for weightshift and to prevent posterior LOB. PT-OP-K Range of Motion Start: 04/13/21 07:31 Freq: Status: Active Protocol: Document 04/13/21 09:45 AMB (Rec: 04/13/21 15:10 AMB [email or web address]) Hip Goniometric Range of Motion Hip Right Passive Comments Neutral hip extension PT-OP-M Strength Start: 04/13/21 07:31 Freq: Status: Active Protocol: Document 04/13/21 14:55 AMB (Rec: 04/13/21 15:08 AMB [email or web address]) Hip Strength Hip Manual Muscle Testing Right Flexion (L2) 4 Good Extension (S1) 4 Good Abduction 4 Good Left Flexion (L2) 3- Fair- Extension (S1) 2 Poor Abduction 2- Poor- Knee Strength Knee Manual Muscle Testing Left Comments 4/5 bilat knee flexion, extension, ankle dorsiflexion PT-OP-T Assessment and Plan Start: 04/13/21 07:31 Freq: Status: Active Protocol: Document 07/16/21 15:44 AMB (Rec: 07/16/21 15:45 AMB [id number]) Physical Therapy Assessment Goals Three Impairment Transfers Short Term Goal (STG) Edgar will complete a sit to stand transfer with Wale without significant posterior LOB. STG Duration 4 weeks- NOT MET Intraoperative Neuro Tech Goal (LTG) Sy will roll over in bed and move from sidelying to sitting with Wale. LTG Duration 12 weeks- depends on what side Two Impairment HEP Short Term Goal (STG) Edgar will be independent with a HEP in seated for her leg strength and coordination. STG Duration 6 weeks- progress made One Impairment Gait Short Term Goal (STG) Edgar will ambulate with a 4WW for 100 feet with Wale and without an increase in her bilateral hip pain. STG Duration MET Assessment Summary Assessment Edgar is going on hospice and therefore is now discharged from outpatient physical therapy. She continued to work hard in therapy, but hospice is likely a more appropriate setting for her at this point. She had met some of her goals, but PT had been focusing on maitaining her mobility for some time considering her progressive disease process and her continued weightloss. Physical Therapy Plan Discharge Physical Therapy Discharge Reasons Change in Medical Status
== END 2021-07-17 09:35 ==
LOC: PHYS 13:45
PROVIDERS: Family Provider Internal Medicine; PCP Internal Medicine; Referring Provider Internal Medicine; Visit Provider Internal Medicine
DX: G20 Parkinson's disease (principal); Z91.81 History of falling; R26.89 Other abnormalities of gait and mobility; M25.559 Pain in unspecified hip
CPT/HCPCS: 97110; 97112; 97116; 97162; 97530; 97535

== ENCOUNTER 2021-10-08 20:58 | Emergency (ER) | payer MEDICARE, SELFPAY ==
[2020-11-06 21:17] VITALS: BMI 23.5
[2021-10-08 21:03] VITALS: BP 159/70; PULSE 77; RESP 18; TEMP 36.5; O2SAT 94
[2021-10-08] MEDS: LIDOCAINE 1% W/EPI 1 ML SUBCUT (21:49)
[2021-10-08] MEDS: BACITRACIN OINT 0.9 GM PCKT 1 APPLIC TOP (21:50)
--- NOTE | 2021-10-09 01:28 | ED.WOUNDLAC ---
HPI - Wound/Laceration General Chief Complaint: Wound/Laceration Stated Complaint: FALL HIT HEAD Time Seen by Provider: 10/08/21 21:24 Source: patient Mode of arrival: Wheelchair History of Present Illness HPI narrative: 76-year-old female nonsmoker with history of end-stage Parkinson's on hospice presents with her for evaluation of a ground level fall resulting in a forehead laceration. She takes no anticoagulant but is on a baby aspirin. The hospice nurse called ahead and requested or only Wound Care, stating that imaging and any further workup is against their greater plan. For this reason she has not activated as a modified trauma. She has no other complaints. There is no report of dizziness or lightheadedness, no vomiting, neck pain or other injury. Related Data Home Medications Medication Instructions Recorded Confirmed donepezil 10 mg tablet (Aricept) 10 mg PO QDAY #0 05/05/12 06/19/21 aspirin 81 mg tablet,delayed 81 mg PO DAILY 01/14/18 06/19/21 release (Adult Aspirin Regimen) venlafaxine 75 mg capsule,extended 75 mg PO BEDTIME #90 cap 01/14/19 06/19/21 release 24 hr trihexyphenidyl 2 mg tablet 2 mg PO TID tab 03/10/19 06/19/21 carbidopa 10 mg-levodopa 100 mg 5 tab PO DIRECTED tab 06/03/19 06/19/21 tablet Previous Rx's Medication Instructions Recorded Disabled Parking #1 each 01/08/18 albuterol sulfate 90 mcg/actuation 2 puff INHALATION Q4-6H PRN #18 g 11/13/20 aerosol inhaler clonazepam 0.5 mg tablet 1.5 mg PO BEDTIME #45 tab 11/13/20 fluticasone 250 mcg-salmeterol 50 1 inh INHALATION BID #60 ea 11/13/20 mcg/dose blistr powdr for inhalation lorazepam 1 mg tablet 1 mg PO QD-BID PRN #30 tab 11/13/20 metoprolol succinate 25 mg 25 mg PO DAILY #90 tab 12/20/20 tablet,extended release 24 hr oxycodone-acetaminophen 7.5 mg-325 1 - 2 tab PO Q4-6H PRN #90 tab 06/25/21 mg tablet Allergies Allergy/AdvReac Type Severity Reaction Status Date / Time levofloxacin Allergy Severe Hives, Verified 06/19/21 09:28 Water Blisters, Small Fever fentanyl Allergy Unknown Verified 06/19/21 09:28 hydromorphone Allergy Unknown Verified 06/19/21 09:28 Penicillins Allergy Unknown Verified 06/19/21 09:28 Review of Systems Review of Systems Narrative: GENERAL: See HPI. HEENT: See HPI RESPIRATORY: Denies dyspnea, cough, wheezing, hemoptysis, sputum. CARDIOVASCULAR: Denies chest pain, palpitations, orthopnea, edema, GASTROINTESTINAL: Denies nausea, vomiting, abdominal pain, diarrhea, constipation, melena. : Denies dysuria, frequency, incontinence, hematuria, urinary retention. MUSCULOSKELETAL: denies weakness, joint pain, or bony pain SKIN: Denies rash, skin lesions, or other NEUROLOGIC: See HPI PSYCHIATRIC: No concerning psychosocial issues. 12 point review of systems is negative except for those stated above Patient History Medical History Aspiration, chronic pulmonary Dysphagia, neurologic Mild cognitive impairment Mild intermittent asthma without complication (01/18/11) Osteoporosis (01/18/11) Parkinson's disease (01/18/11) Surgical History History of surgery Status post hysterectomy with oophorectomy Social History household members: spouse Smoking Status: Never smoker alcohol intake: never Smoking Status: Never smoker Substance Use Type: does not use Exam Narrative Exam Narrative: GEN: Aelrt. Mild distress HEAD: 2cm bleeding laceration on left forehead. No evidence of depressed skull fracture EYES: Pupils are equal, round, and reactive to light and accommodation. NO hyphema. Extraoccular muscles are intact bilaterally. There is no subconjunctival hemorrhage or exudate. CHEST: Lungs are clear to auscultation bilaterally and free of wheezes, rales, or rhonchi. Heart rate is regular rhythm, there are no murmurs, clicks, rubs, or gallops. There is no chest wall tenderness. ABD: Abdomen is soft and nontender. There is no guarding or rebound. Bowel sounds are normal in all 4 quadrants. There is no mass or organomegaly. EXT: Full painless ROM of all extremities with no loss of sensation or strength. SKIN: Warm, pink, and dry. No erythema or rash Initial Vital Signs Initial Vital Signs: Vital Signs Temperature 97.7 F 10/08/21 21:03 Pulse Rate 77 10/08/21 21:03 Respiratory Rate 18 10/08/21 21:03 Blood Pressure 159/70 H 10/08/21 21:03 Pulse Oximetry 94 10/08/21 21:03 Procedures Laceration Repair Laceration 1: Site: face Side (If applicable): left Size (cm): 2 Description: stellate Depth: simple, single layer Local Anesthetic: lidocaine 1% and with epi Amount of anesthesia used (mL): 3 Pre-repair: wound explored and cleansed with chlorhexadine Skin layer closed with: nylon Skin layer suture size: 6-0 Number of sutures: 2 Course Orders Ordered: Discontinued Medications Bacitracin (Bacitracin Oint 0.9 Gm Pckt) 1 applic TOP NOW ONE Stop: 10/08/21 21:41 Last Admin: 10/08/21 21:50 Dose: 1 applic Documented by: LOIS Lidocaine/Epinephrine (Lidocaine 1% W/Epi) 1 ml SUBCUT NOW ONE Stop: 10/08/21 21:25 Last Admin: 10/08/21 21:49 Dose: 1 ml Documented by: LOIS Vital Signs Vital signs: Vital Signs - 8 hr 10/08/21 21:03 Temperature 97.7 F Pulse Rate 77 Respiratory Rate 18 Blood Pressure 159/70 H Pulse Oximetry 94 Discharge Plan Departure Patient Disposition: Home Clinical Impression: Laceration of face Instructions: DI for Laceration Repair Activity Restrictions/Additional Instructions: *You have been diagnosed with [facial laceration with suture *What to do: *Please continue to take your regular medications as directed. Please keep the wound clean and dry to the best of your ability. Please monitor for signs of infection such as redness to the skin or increasing pain. Have the sutures/star removed by your doctor in about 7 days. If you are unable to get into your doctor, we would be happy to remove the sutures/star in that same timeframe. *Return to Emergency Department if you should have any new, worsening or concerning symptoms, such as [fever greater than 101 F, shaking chills, worsening pain, persistent vomiting or other bothersome symptoms] Prescriptions: No Action aspirin [Adult Aspirin Regimen] 81 mg tablet,delayed release (DR/EC) 81 mg PO DAILY 0RF donepezil [Aricept] 10 MG tablet 10 mg PO QDAY Qty: 0 0RF (DME) Disabled Parking Qty: 1 0RF Rx Instructions: Patient qualifies for disabled parking as per the attached form. trihexyphenidyl 2 mg tablet 2 mg PO TID 0RF metoprolol succinate 25 mg tablet extended release 24 hr 25 mg PO DAILY Qty: 90 3RF Rx Instructions: takes at HS oxycodone-acetaminophen 7.5-325 mg tablet 1 - 2 tab PO Q4-6H PRN (Reason: pain) Qty: 90 0RF venlafaxine 75 mg capsule,extended release 24hr 75 mg PO BEDTIME Qty: 90 0RF carbidopa-levodopa 10-100 mg tablet 5 tab PO DIRECTED 0RF Rx Instructions: Two tabs at 0900, 2 tabs at noon, 1 tab at 1500 fluticasone propion-salmeterol 250-50 mcg/dose blister with device 1 inh inhalation BID Qty: 60 0RF albuterol sulfate 90 mcg/actuation HFA aerosol inhaler 2 puff inhalation Q4-6H PRN (Reason: shortness of breath or wheezing) Qty: 18 0RF clonazepam 0.5 mg tablet 1.5 mg PO BEDTIME Qty: 45 0RF Rx Instructions: take two tabs at bedtime and one tab in the night as needed lorazepam 1 mg tablet 1 mg PO QD-BID PRN (Reason: agitation/anxiety) Qty: 30 0RF Rx Instructions: 1-2 tabs PO daily PRN; Referrals: Hudson Mcmanus MD [Primary Care Provider] -
== END 2021-10-08 21:50 | disposition home or self-care (01) ==
PROVIDERS: Emergency Provider Emergency Medicine; Family Provider Internal Medicine; PCP Internal Medicine
DX: S01.81XA Laceration without foreign body of other part of head, initial encounter (principal); W18.30XA Fall on same level, unspecified, initial encounter
CPT/HCPCS: 12011; 99283